=== PATIENT | male | born 1950 | race Caucasian/White ===

== ENCOUNTER → 2016-03-05 | Outpatient (CLI) | payer OTHER ==
[~2016-03-05] MED LIST: ACT/15 PO; ALBUAER9 INH; ALLO100T PO; AMOX875T PO; ASPI81TA28 PO; ATOR-24 PO; BMX1 PO; CHOL100010 PO; CHOL100027 PO; FENO48TA9 PO; FURO20TA PO; GLIM4TAB PO; HYDR100T12 PO; LISI40TA PO; METH10TA6 PO; METO-551 PO; METO-596 PO; TPRSR50 PO; ULT50X PO; UMEC1AER INH; VTMD PO
[2016-03-05 16:44] LABS: HEMATOCRIT 28.7 % (42-52); MEAN CELL VOLUME 80.2 fL (80-100); MEAN CORPUSCULAR HEMOGLOBIN 26.8 pg (25-34); MEAN CORPUSCULAR HGB CONC 33.4 g/dl (32-36); MEAN PLATELET VOLUME 10.3 fL (7.4-10.4); PLATELET COUNT 306 K/uL (130-400); RED BLOOD COUNT 3.58 M/uL (4.7-6.1); WHITE BLOOD COUNT 10.47 K/uL (4.8-10.8)
[2016-03-05 16:49] LABS: URINE APPEARANCE CLEAR (CLEAR); URINE BILIRUBIN NEG (NEG); URINE COLOR YELLOW; URINE NITRITE NEG (NEG); URINE PH 5.5 (4.5-7.5); URINE SPECIFIC GRAVITY 1.014 (1.000-1.030); UROBILINOGEN NEG (NEG)
[2016-03-05 16:57] LABS: BLOOD UREA NITROGEN 42 mg/dl (7-18); BUN/CREATININE RATIO 21.8 (10-20); CALCIUM 8.7 mg/dl (8.5-10.1); CARBON DIOXIDE 28 mmol/L (21-32); CHLORIDE 107 mmol/L (98-107); GLUCOSE 122 mg/dl (70-99); PHOSPHORUS 2.8 mg/dl (2.5-4.9); POTASSIUM 4.5 mmol/L (3.5-5.1); SODIUM 140 mmol/L (136-145)
[2016-03-05 16:58] LABS: MANUAL MICROSCOPIC REQUIRED? NO; REVIEW REQ? NO
[2016-03-05 17:26] LABS: URINE PROTIEN/CREAT RATIO 2.1 (0-0.2); URINE TOTAL PROTEIN 246.5 mg/dl (0-11.9)
== END | disposition home or self-care (01) ==
LOC: C.LAB1850 15:06
PROVIDERS: ATTEND Internal Medicine Nephrology
DX: I10 Essential (primary) hypertension (principal); R80.9 Proteinuria, unspecified; E55.9 Vitamin D deficiency, unspecified; N18.3 Chronic kidney disease, stage 3 (moderate)

== ENCOUNTER → 2016-03-05 | Outpatient (CLI) | payer OTHER ==
--- NOTE | 2016-03-05 14:22 | DIAGNOSTIC IMAGING REPORT ---
TWO VIEW CHEST CLINICAL HISTORY: Cough. FINDINGS: PA and lateral chest radiographs are compared to study dated 02/15/2014. The heart is enlarged and there is atherosclerotic calcification of the thoracic aorta. The pulmonary vasculature is noncongested. An accessory azygous fissure is again noted. There are small pleural effusions, right larger than left with bibasilar atelectasis. The lungs are otherwise clear. There is no pneumothorax. The skeletal structures are osteopenic. The bony thorax appears intact. IMPRESSION: 1. Cardiomegaly without radiographic evidence of congestive failure. 2. Small pleural effusions with bibasilar atelectasis. Electronically signed by: Dheeraj Monte M.D. 03/05/2016 2:21 PM Dictated Date/Time: 03/05/2016 2:20 PM
== END | disposition home or self-care (01) ==
LOC: C.RAD1850 14:07
PROVIDERS: ATTEND Internal Medicine
DX: R05 Cough (principal); J98.11 Atelectasis; I51.7 Cardiomegaly

== ENCOUNTER 2016-03-07 17:06 | Inpatient (IN) | payer OTHER ==
[~2016-03-07] VITALS: Ht 167.6 cm; Wt 89.0 kg
[~2016-03-07 17:06] MED LIST changes: -ALLO100T PO; -AMOX875T PO; -BMX1 PO; -FENO48TA9 PO; -HYDR100T12 PO; -TPRSR50 PO; -ULT50X PO; -UMEC1AER INH; -VTMD PO
[2016-03-07 17:53] LABS: BASO % 0.1 %; BASO ABS # 0.01 K/uL (0-0.2); COMPLETE YES; EOS % 1.6 %; HEMATOCRIT 30.9 % (42-52); IG% 0.3 %; LYMPH % 9.1 %; LYMPH ABS # 1.29 K/uL (1.2-3.4); MEAN CELL VOLUME 79.4 fL (80-100); MEAN CORPUSCULAR HEMOGLOBIN 26.5 pg (25-34); MEAN CORPUSCULAR HGB CONC 33.3 g/dl (32-36); MEAN PLATELET VOLUME 9.6 fL (7.4-10.4); MONO % 11.4 %; NEUT % 77.5 %; PLATELET COUNT 337 K/uL (130-400); RED BLOOD COUNT 3.89 M/uL (4.7-6.1); WHITE BLOOD COUNT 14.17 K/uL (4.8-10.8)
[2016-03-07 18:10] LABS: BLOOD UREA NITROGEN 42 mg/dl (7-18); CARBON DIOXIDE 25 mmol/L (21-32); CHLORIDE 104 mmol/L (98-107); GLUCOSE 56 mg/dl (70-99); POTASSIUM 4.1 mmol/L (3.5-5.1); SODIUM 140 mmol/L (136-145)
[2016-03-07] MEDS ORDERED: ALLO100T PO (18:11)
[2016-03-07] MEDS ORDERED: FENO48TA9 PO (18:12)
[2016-03-07] MEDS ORDERED: HYDR100T12 PO (18:13)
[2016-03-07] MEDS ORDERED: UMEC1AER INH (18:16)
[2016-03-07] MEDS ORDERED: AMOX875T PO (18:18)
--- NOTE | 2016-03-07 18:30 | DIAGNOSTIC IMAGING REPORT ---
ULTRASOUND VENOUS DOPPLER LWR EXT BILA CLINICAL HISTORY: Lower extremity swelling COMPARISON STUDY: 05/27/2009 FINDINGS: Real-time and color flow Doppler imaging were performed. Flow was seen within the femoral, popliteal and calf veins with no intraluminal thrombus demonstrated. The saphenous vein is patent. There is prominent pulsatility within the venous waveforms, suggesting elevated right heart pressures. IMPRESSION: No evidence of lower extremity DVT. Electronically signed by: Sumeet Cid M.D. 03/07/2016 6:29 PM Dictated Date/Time: 03/07/2016 6:28 PM
--- NOTE | 2016-03-07 18:33 | EMERGENCY ROOM VISIT NOTE ---
History Report prepared by Jo: Martha Thornton Under the Supervision of: Dr. Neto Olivia D.O. First contact with patient: 17:14 Chief Complaint: SHORTNESS OF BREATH Stated Complaint: GROIN PRESSURE,SWOLLEN LEGS,FLUID IN LUNGS Nursing Triage Summary: triage note: pt reports swelling to legs and shortness of breath since wednesday pt reports he was seen by his pcp office last week. pt reports "he has fluid in his lungs." History of Present Illness The patient is a 65 year old male who presents to the Emergency Room with complaints of worsening lower extremity edema that started yesterday. The patient has a history of lower extremity edema and is on Lasix. His states that his edema is typically not this bad, which is why they came into the ED. The patient states that it is difficult to ambulate secondary to the edema. The patient states the he elevated his legs last night, which decreased the edema, but once he got up the edema came back again. He is also experiencing pain in his lower extremities. Additionally, he states that he experiences "shakes," but is unsure of why. He denies chest pain, abdominal pain , hematochezia and melena, but he states that his most recent stool was a little darker than normal. The patient is also experiencing a cough, but he states that it is improving with the antibiotics that his PCP prescribed him last week. He states that he started the antibiotics 2 days ago. The patient's states that "he has fluid in his lungs." The patient is also experiencing diarrhea. He seems to get diarrhea after eating. The patient adds that he only has 50% of his kidney function. He had blood work and a urine sample done recently, but he has not received the results of the tests yet. The patient was also experiencing pressure above his groin, but that was relieved with urination. The patient denies any previous colonoscopies. Source of History: patient, spouse/significant other () Onset: yesterday Position: leg (bilateral) Quality: other (lower extremity edema) Timing: worsening Modifying Factors (Relieving): elevation Associated Symptoms: + SOB, + cough, + diarrhea, No abdominal pain, No chest pain, No hematochezia, No melena Note: lower extremity pain, "shakes" Review of Systems See HPI for pertinent positives & negatives. A total of 10 systems reviewed and were otherwise negative. Past Medical & Surgical Medical Problems: (1) Diabetes mellitus (2) Essential hypertension (3) Gouty Arthropathy, Unspecified (4) Renal & Ureteral Dis Nos (5) Tobacco dependence syndrome Family History Diabetes mellitus Social History Smoking Status: Current Every Day Smoker Drug Use: none Marital Status: Housing Status: lives with family Current/Historical Medications Scheduled Allopurinol (Zyloprim), 100 MG PO DAILY Amoxicillin & Pot Clavulanate (Augmentin 875-125 mg), 1 TAB PO BID Aspirin (Aspirin Ec), 81 MG PO DAILY Fenofibrate (Tricor), 48 MG PO DAILY Furosemide (Lasix), 20 MG PO DAILY Glimepiride (Amaryl), 4 MG PO BID Hydralazine Hcl (Apresoline), 100 MG PO TID Lisinopril (Zestril), 40 MG PO DAILY Metoprolol Tartrate (Lopressor), 50 MG PO QPM Metoprolol Tartrate (Lopressor), 100 MG PO QAM Pioglitazone Hcl (Actos), 30 MG PO DAILY Umeclidinium-Vilanterol (Anoro Ellipta 62.5-25 Mcg/INH), 1 SPRAY INH DAILY Allergies Coded Allergies: No Known Allergies (Unverified , NONE, 09/18/14) Physical Exam Vital Signs Date Time Temp Pulse Resp B/P Pulse Ox O2 Delivery O2 Flow Rate FiO2 03/07/16 17:12 36.4 80 20 211/88 94 Room Air 03/07/16 17:11 94 Room Air Physical Exam CONSTITUTIONAL/VITAL SIGNS: Reviewed / noted above. GENERAL: Non-toxic in appearance. INTEGUMENTARY: Warm, dry, and [place]. HEAD: Normocephalic. EYES: without scleral icterus or trauma. ENT/OROPHARYNX: clear and moist. LYMPHADENOPATHY/NECK: Is supple without lymphadenopathy or meningismus. RESPIRATORY: Lungs clear and equal. CARDIOVASCULAR: Regular rate and rhythm. GI/ABDOMEN: Soft and nontender. No organomegaly or pulsatile mass. No rebound or guarding. Normal bowel sounds. EXTREMITIES: Warm and well perfused. Bilateral lower extremity edema with right slightly greater than left. BACK: No CVA tenderness. NEUROLOGICAL: Intact without focal deficits. PSYCHIATRIC: normal affect. MUSCULOSKELETAL: Normally developed with good muscle tone. Medical Decision & Procedures ER Provider Diagnostic Interpretation: US results as stated below per my review and radiologist interpretation: ULTRASOUND VENOUS DOPPLER LWR EXT BILA IMPRESSION: No evidence of lower extremity DVT. Electronically signed by: Sumeet Cid M.D. 03/07/2016 6:29 PM Dictated Date/Time: 03/07/2016 6:28 PM Laboratory Results 03/07/16 17:30 Red Blood Count 3.89, Mean Corpuscular Volume 79.4, Mean Corpuscular Hemoglobin 26.5, Mean Corpuscular Hemoglobin Concent 33.3, Mean Platelet Volume 9.6, Neutrophils (%) (Auto) 77.5, Lymphocytes (%) (Auto) 9.1, Monocytes (%) (Auto) 11.4, Eosinophils (%) (Auto) 1.6, Basophils (%) (Auto) 0.1, Neutrophils # (Auto ) 10.99, Lymphocytes # (Auto) 1.29, Monocytes # (Auto) 1.61, Eosinophils # (Auto ) 0.23, Basophils # (Auto) 0.01 03/07/16 17:30 Test 03/07/16 17:30 White Blood Count 14.17 K/uL (4.8-10.8) Red Blood Count 3.89 M/uL (4.7-6.1) Hemoglobin 10.3 g/dL (14.0-18.0) Hematocrit 30.9 % (42-52) Mean Corpuscular Volume 79.4 fL (80-100) Mean Corpuscular Hemoglobin 26.5 pg (25-34) Mean Corpuscular Hemoglobin Concent 33.3 g/dl (32-36) Platelet Count 337 K/uL (130-400) Mean Platelet Volume 9.6 fL (7.4-10.4) Neutrophils (%) (Auto) 77.5 % Lymphocytes (%) (Auto) 9.1 % Monocytes (%) (Auto) 11.4 % Eosinophils (%) (Auto) 1.6 % Basophils (%) (Auto) 0.1 % Neutrophils # (Auto) 10.99 K/uL (1.4-6.5) Lymphocytes # (Auto) 1.29 K/uL (1.2-3.4) Monocytes # (Auto) 1.61 K/uL (0.11-0.59) Eosinophils # (Auto) 0.23 K/uL (0-0.5) Basophils # (Auto) 0.01 K/uL (0-0.2) RDW Standard Deviation 44.6 fL (36.4-46.3) RDW Coefficient of Variation 15.4 % (11.5-14.5) Immature Granulocyte % (Auto) 0.3 % Immature Granulocyte # (Auto) 0.04 K/uL (0.00-0.02) Anion Gap 11.0 mmol/L (3-11) Est Creatinine Clear Calc Drug Dose 35.2 ml/min Estimated GFR () 34.9 Estimated GFR (Non- 30.1 BUN/Creatinine Ratio 19.0 (10-20) Calcium Level 9.0 mg/dl (8.5-10.1) Troponin I 0.117 ng/ml (0-0.045) Laboratory results as stated above per my review. ECG Indication: SOB/dyspnea Rate (beats per minute): 82 Findings: no acute ischemic change, no ectopy ED Course 1715: Previous medical records were reviewed. The patient was evaluated in room A11. A complete history and physical examination was performed. 1830: On reevaluation, the patient is resting comfortably. I discussed the results and findings with him. He verbalized agreement of the treatment plan. The patient will be evaluated for further management and care. 1837: Discussed the patient's case with Dr. Sameera TORRES. The patient will be evaluated for further treatment and disposition. Medical Decision Differential diagnosis: Etiologies such as DVT, musculoskeletal, infection, joint effusion, trauma, lymphedema, idiopathic, CHF, hypoalbuminemia, anemia, as well as others were entertained. This is a 65-year-old male who presents to the ED with a chief complaint of lower extremity edema. The patient states that he has had this chronically but it seemed to gotten worse since yesterday. The patient denies any other specific complaints. Chief complaint was stated to be short of breath but the patient does not mention short of breath as part of his complaint. It is primarily weakness in the lower extremity is because of the increased weight and his edema. Denied having chest pains. Denies any abdominal pains. His physical exam reveals age-appropriate male in no acute distress. Lungs are clear. Abdomen soft and nontender. The patient has bilateral pitting edema right slightly worse than the left. The patient had blood work done 2 days ago by his renal specialist. His hemoglobin at that time was 9.6. Today's hemoglobin is 10.3. The patient denies any back or bloody stools. The patient' s BUN and creatinine today are 42 and 2.2. It was 1.92 days ago. This is about baseline for the patient. Also the albumin level was 2.82 days ago. Chest x-ray 2 days ago revealed some cardiomegaly without congestive changes. The patient was told the results of the tests. Lower extremity duplex did not show DVT. The patient's troponin is slightly elevated. Because the symptoms and the increased troponin, I spoke with the hospitalist to evaluate the patient. Consults Time Called: 1831 Consulting Physician: Dr. Sameera TORRES Returned Call: 1836 Discussed the patient's case with Dr. Sameera TORRES. The patient will be evaluated for further treatment and disposition. Impression Primary Impression: Edema of both legs Additional Impression: Elevated troponin Scribe Attestation The scribe's documentation has been prepared under my direction and personally reviewed by me in its entirety. I confirm that the note above accurately reflects all work, treatment, procedures, and medical decision making performed by me. Departure Information Dispostion Being Evaluated By Hospitalist Referrals ,Shawn Tobias M.D. (PCP) Patient Instructions My [facility] Problem Qualifiers
[2016-03-07] MEDS ORDERED: METH10TA6 PO (19:07)
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
[2016-03-07] MEDS ORDERED: BUMETANIDE SOLN 1 MG/4 ML VIAL IV ONE (19:30)
[2016-03-07] MEDS ORDERED: NITROGLYCERIN OINT 2% 1GM PACKET EXT SCH ×2 (19:30→20:00)
[2016-03-07 19:33] LABS: THYROID STIMULATING HORMONE < 0.005 uIu/ml (0.300-4.500)
[2016-03-07] MEDS ORDERED: MAGNESIUM HYDROXIDE SUSP 30 ML UDC PO PRN (19:45)
[2016-03-07] MEDS ORDERED: ONDANSETRON INJ 2 MG/ML 2 ML VIAL IV PRN (19:45)
[2016-03-07] MEDS ORDERED: ALUMINUM/MAGNESIUM/SIMETH (MAALOX MAX) 30 ML UDC PO PRN (19:45)
[2016-03-07] MEDS ORDERED: NITROGLYCERIN 0.4 MG SL PER TAB CHARGE SL PRN (19:45)
--- NOTE | 2016-03-07 19:58 | DIAGNOSTIC IMAGING REPORT ---
CHEST 2 VIEWS ROUTINE CLINICAL HISTORY: Congestive failure. COMPARISON STUDY: 03/05/2016 FINDINGS: The cardiac and mediastinal contours remain stable. Azygos fissure is again evident. There is no focal pulmonary consolidation. There are small bilateral pleural effusions. There is no overt failure.[ IMPRESSION: Small bilateral pleural effusions, unchanged from the preceding study. No evidence of acute parenchymal consolidation Electronically signed by: Sumeet Cid M.D. 03/07/2016 7:57 PM Dictated Date/Time: 03/07/2016 7:56 PM
[2016-03-07] MEDS ORDERED: NITROGLYCERIN OINT 2% 1GM PACKET ONE (20:00)
[2016-03-07] MEDS ORDERED: GLUCOSE 40% GEL 15 GM TUBE PO PRN (21:00)
[2016-03-07] MEDS ORDERED: HydrALAZINE HCL 20 MG/ML VIAL IV. PRN (21:00)
[2016-03-07] MEDS ORDERED: METOPROLOL TARTRATE 50 MG TAB PO SCH (21:00)
[2016-03-07] MEDS ORDERED: DEXTROSE 50% 50 ML SYR IV PRN (21:00)
[2016-03-07] MEDS ORDERED: GLUCAGON FOR INJ 1 MG VIAL SQ PRN (21:00)
[2016-03-07] MEDS ORDERED: GLUCOSE 10 TABS/TUBE PO PRN (21:00)
[2016-03-07] MEDS: INSULIN ASPART 100 UNITS/ML 3 ML PEN SC SCH (21:00)
[2016-03-07 21:09] LABS: INR 1.1 (0.9-1.1); PARTIAL THROMBOPLASTIN RATIO 1.1; PROTHROMBIN TIME (PATIENT) 11.4 SECONDS (9.0-12.0)
[2016-03-07] MEDS: ACETAMINOPHEN 325 MG TAB PO PRN (21:32)
[2016-03-07] MEDS: AMOXICILLIN/CLAVULANATE TAB 875 MG TAB PO SCH (21:32)
[2016-03-07] MEDS: NICOTINE 14 MG/24 HR TDSY TD SCH (21:32)
[2016-03-07 21:47] VITALS: BP 177/76; PULSE 92; TEMP 36.8; O2SAT 95; Ht 167.6 cm; Wt 89.0 kg
[2016-03-07] MEDS ORDERED: INFLUENZA VIRUS QUAD VACCINE 0.5 ML SYR IM. ONE (22:30)
[2016-03-07] MEDS ORDERED: PNEUMOCOCCAL POLYSACCHARIDES 25 MCG/0.5 ML VIAL/SYR IM. ONE (22:30)
[2016-03-07] MEDS ORDERED: PNEUMOCOCCAL ADMINISTRATION CHARGE ONE (22:30)
[2016-03-07] MEDS ORDERED: INFLUENZA ADMINISTRATION CHARGE ONE (22:30)
[2016-03-07] MEDS: TEMAZEPAM 7.5 MG CAP PO PRN (23:08)
[2016-03-07] MEDS: HEPARIN SOD 5000 UNIT/0.5 ML CARP SQ SCH (23:08)
[2016-03-07 23:52] VITALS: BP 141/58; PULSE 90; TEMP 37; O2SAT 91
[2016-03-07 23:59] VITALS: O2SAT 91
[2016-03-08] VITALS (11 sets, daily range): BP systolic 157–180; BP diastolic 62–82; PULSE 75–92; TEMP 36.6–37; O2SAT 91–95
[2016-03-08] MEDS ORDERED: NITROGLYCERIN OINT 2% 1GM PACKET EXT SCH (00:30)
[2016-03-08] MEDS: NITROGLYCERIN OINT 2% 1GM PACKET EXT SCH ×2 (03:47→08:22)
[2016-03-08] MEDS: HEPARIN SOD 5000 UNIT/0.5 ML CARP SQ SCH ×3 (05:47→22:00)
[2016-03-08 07:12] LABS: BUN/CREATININE RATIO 18.4 (10-20); CREATININE 2.3 mg/dl (0.60-1.40); POTASSIUM 4.3 mmol/L (3.5-5.1)
[2016-03-08 07:27] LABS: FERRITIN 268.7 ng/ml (8.0-388.0)
[2016-03-08] MEDS ORDERED: PERFLUTREN LIPID MICROSPHERE (DEFINITY) IV ONE (07:53)
[2016-03-08] MEDS: AMOXICILLIN/CLAVULANATE TAB 875 MG TAB PO SCH ×2 (08:12→22:19)
[2016-03-08] MEDS: ALLOPURINOL 100 MG TAB PO SCH (08:12)
[2016-03-08] MEDS: METHIMAZOLE 5 MG TAB PO SCH (08:17)
[2016-03-08] MEDS: IPRATROPIUM BROMIDE/ALBUTEROL respimat INH INH SCH ×5 (08:20→22:13)
[2016-03-08] MEDS: ASPIRIN 81 MG ECTAB PO SCH (08:20)
[2016-03-08] MEDS: FENOFIBRATE 48 MG TAB PO SCH (08:21)
[2016-03-08] MEDS: NICOTINE 14 MG/24 HR TDSY TD SCH (08:21)
[2016-03-08] MEDS: LISINOPRIL 40 MG TAB PO SCH (08:22)
[2016-03-08] MEDS: INSULIN ASPART 100 UNITS/ML 3 ML PEN SC SCH ×4 (08:23→22:22)
[2016-03-08] MEDS: ACETAMINOPHEN 325 MG TAB PO PRN (08:32)
[2016-03-08] MEDS ORDERED: ERGOCALCIFEROL 50,000 INTER.UNIT CAP PO SCH (09:00)
[2016-03-08] MEDS ORDERED: BUMETANIDE IV 1 MG in SYRINGE 0 ML IV SCH (09:00)
[2016-03-08] MEDS ORDERED: METOPROLOL TARTRATE 100 MG TAB PO SCH (09:00)
--- NOTE | 2016-03-08 10:32 | DIAGNOSTIC IMAGING REPORT ---
RIGHT KNEE 3 VIEWS HISTORY: right knee pain Right COMPARISON: None. FINDINGS: No acute fracture or dislocation within the right knee. Chondrocalcinosis. No significant knee effusion. A cluster of calcification seen within the prepatellar soft tissues measuring 3.3 cm. Large tricompartmental marginal osteophytes are identified. Mild cartilage space narrowing at the patellofemoral joint. Severe cartilage space narrowing within the medial compartment of the knee. No radiopaque foreign bodies. IMPRESSION: 1. No acute fracture or dislocation within the right knee. 2. No knee effusion. 3. Chondrocalcinosis. 4. Advanced tricompartmental osteoarthritis. 5. A 3.3 cm prepatellar soft tissue calcification. This is likely chronic. Electronically signed by: Burke Jaimes M.D. 03/08/2016 10:31 AM Dictated Date/Time: 03/08/2016 10:29 AM
--- NOTE | 2016-03-08 11:16 | ECHOCARDIOGRAM REPORT ---
*NOTICE TO RECEIVING REPUBLICAN AGENCY This information is strictly Confidential and protected under [place] law. [place] law prohibits you from making any further disclosure of this information unless further disclosure is expressly permitted by the written consent of the person to whom it pertains or is authorized by law. A general authorization for the release of medical or other information is not sufficient for this purpose. Hospital accepts no responsibility if the information is made available to any other person, INCLUDING THE PATIENT. Interpretation Summary * Conclusions -- * 1. Top-normal left ventricular size with normal systolic function. EF 60-65%. No regional wall motion abnormalities. No significant left ventricular hypertrophy. Type 1 diastolic dysfunction. * 2. Mild valvular aortic stenosis. * 3. There is mild mitral regurgitation. * 4. Technically difficult study, enhanced with IV Definity. * 5. Compared to prior study on 03/25/2012, there now appears to be mild aortic stenosis. Procedure Details * A complete two-dimensional transthoracic echocardiogram was performed (2D, M-mode, Doppler and color flow Doppler). * The study was technically difficult. * The study was technically difficult, but visualization was adequate with the administration of Definity ultrasound contrast. * A contrast injection of Definity was performed to improve assessment of LV function. * Contrast was injected into an intravenous site in the right arm. * One vial of Definity ultrasound contrast was diluted in normal saline to a total volume of 10 ml. A total of '4' ml of solution was administered during imaging. * Lot # [id number] of Definity utilized for procedure. * Expiration date 1DEC17. * The attending nurse who injected the contrast agent was SURYA Mock. Left Ventricle * Top-normal left ventricular size with normal systolic function. EF 60-65%. No regional wall motion abnormalities. No significant left ventricular hypertrophy. Type 1 diastolic dysfunction. Right Ventricle * The right ventricle is normal in size and function. * The right ventricular systolic function is normal as assessed by tricuspid annular plane systolic excursion (TAPSE) (normal >1.5 cm). Atria * The left atrium is borderline dilated. * Right atrial size is normal. * There is no evidence of atrial septal defect, but resolution does not allow assessment for a patent foramen ovale. Mitral Valve * The mitral valve is grossly normal. * There is no mitral valve stenosis. * There is mild mitral regurgitation. Tricuspid Valve * The tricuspid valve is not well visualized, but is grossly normal. * There is no tricuspid stenosis. * There is trace tricuspid regurgitation. Aortic Valve * Mild valvular aortic stenosis. * There is no significant aortic regurgitation. Pulmonic Valve * The pulmonary valve is inadequately visualized, but the Doppler data is adequate for interpretation. * There is no pulmonic valvular stenosis. Great Vessels * The aortic root is normal size. * Ascending aorta of normal dimension Pericardium/Pleural * There is no pericardial effusion. Great Vessels * Mildly dilated IVC. MMode 2D Measurements and Calculations IVSd 1.1 cm IVSs 1.7 cm LVIDd 5.2 cm LVIDs 2.9 cm LVPWd 1.1 cm LVPWs 1.6 cm IVS/LVPW 0.98 FS 43.2 % EDV(Teich) 127.4 ml ESV(Teich) 33.1 ml EF(Teich) 74.0 % EDV(cubed) 137.6 ml ESV(cubed) 25.3 ml EF(cubed) 81.7 % % IVS thick 59.9 % % LVPW thick 50.5 % LV mass(C)d 213.1 grams LV mass(C)dI 105.9 grams/m\S\2 LV mass(C)s 186.3 grams LV mass(C)sI 92.6 grams/m\S\2 SV(Teich) 94.3 ml SI(Teich) 46.8 ml/m\S\2 SV(cubed) 112.4 ml SI(cubed) 55.8 ml/m\S\2 Ao root diam 3.3 cm Ao root area 8.4 cm\S\2 LA dimension 3.8 cm asc Aorta Diam 3.0 cm LA/Ao 1.2 LVOT diam 2.0 cm LVOT area 3.2 cm\S\2 LVAd ap4 37.8 cm\S\2 LVLd ap4 8.7 cm EDV(MOD-sp4) 133.0 ml LVAs ap4 20.5 cm\S\2 LVLs ap4 6.7 cm ESV(MOD-sp4) 51.0 ml EF(MOD-sp4) 61.7 % LVAd ap2 32.7 cm\S\2 LVLd ap2 8.5 cm EDV(MOD-sp2) 101.0 ml LVAs ap2 16.7 cm\S\2 LVLs ap2 6.4 cm ESV(MOD-sp2) 36.0 ml EF(MOD-sp2) 64.4 % SV(MOD-sp4) 82.0 ml SI(MOD-sp4) 40.7 ml/m\S\2 SV(MOD-sp2) 65.0 ml SI(MOD-sp2) 32.3 ml/m\S\2 Doppler Measurements and Calculations MV E max regi 126.5 cm/sec MV A max regi 129.6 cm/sec MV E/A 0.98 MV dec time 0.23 sec Ao V2 max 232.1 cm/sec Ao max PG 21.6 mmHg Ao max PG (full) 15.7 mmHg Ao V2 mean 152.1 cm/sec Ao mean PG 10.4 mmHg Ao mean PG (full) 7.0 mmHg Ao V2 VTI 45.5 cm BOB(I,A) 1.9 cm\S\2 BOB(I,D) 1.9 cm\S\2 BOB(V,A) 1.7 cm\S\2 BOB(V,D) 1.7 cm\S\2 LV V1 max PG 5.8 mmHg LV V1 mean PG 3.4 mmHg LV V1 max 120.9 cm/sec LV V1 mean 86.3 cm/sec LV V1 VTI 26.8 cm SV(Ao) 383.1 ml SI(Ao) 190.3 ml/m\S\2 SV(LVOT) 86.7 ml SI(LVOT) 43.1 ml/m\S\2 PA V2 max 132.8 cm/sec PA max PG 7.1 mmHg RAP systole 8.0 mmHg
--- NOTE | 2016-03-08 11:41 | Progress Note ---
Subjective Date of Service: Mar 08, 2016. Subjective Pt evaluation today including: conversation w/ patient, physical exam, chart review, lab review, review of studies, review of inpatient medication list Problem List Medical Problems: (1) Edema of both legs Status: Acute (2) Elevated troponin Status: Acute Review of Systems Constitutional: No chills, No fever Respiratory: No cough, No dyspnea on exertion, No shortness of breath, No sputum, No wheezing Cardiac: No PND, No chest pain, No claudication, No orthopnea Abdomen: No diarrhea, No nausea, No pain, No vomiting Musculoskeletal: + joint pain, No muscle pain Male : No dysuria, No urinary frequency Neurologic: No memory loss, No paralysis Objective Vital Signs Date Time Temp Pulse Resp B/P Pulse Ox O2 Delivery O2 Flow Rate FiO2 03/08/16 08:00 91 Room Air 03/08/16 04:00 94 Room Air 03/08/16 03:47 36.9 83 17 158/70 94 Room Air 03/07/16 23:59 91 Room Air 03/07/16 23:52 37.0 90 22 141/58 91 Room Air 03/07/16 21:47 36.8 92 20 177/76 95 Room Air 03/07/16 20:14 81 20 208/86 95 Room Air 03/07/16 19:00 81 20 187/87 96 Room Air 03/07/16 17:12 36.4 80 20 211/88 94 Room Air 03/07/16 17:11 94 Room Air Physical Exam General Appearance: WD/WN, no apparent distress Neck: supple, no adenopathy Respiratory/Chest: lungs clear, normal breath sounds Cardiovascular: regular rate, rhythm, no gallop Abdomen: non tender, soft Neurologic/Psychiatric: alert, oriented x 3 Laboratory Results Last 24 Hours Test 03/07/16 17:30 03/07/16 19:41 03/07/16 20:38 03/08/16 00:17 White Blood Count 14.17 K/uL Red Blood Count 3.89 M/uL Hemoglobin 10.3 g/dL Hematocrit 30.9 % Mean Corpuscular Volume 79.4 fL Mean Corpuscular Hemoglobin 26.5 pg Mean Corpuscular Hemoglobin Concent 33.3 g/dl Platelet Count 337 K/uL Mean Platelet Volume 9.6 fL Neutrophils (%) (Auto) 77.5 % Lymphocytes (%) (Auto) 9.1 % Monocytes (%) (Auto) 11.4 % Eosinophils (%) (Auto) 1.6 % Basophils (%) (Auto) 0.1 % Neutrophils # (Auto) 10.99 K/uL Lymphocytes # (Auto) 1.29 K/uL Monocytes # (Auto) 1.61 K/uL Eosinophils # (Auto) 0.23 K/uL Basophils # (Auto) 0.01 K/uL RDW Standard Deviation 44.6 fL RDW Coefficient of Variation 15.4 % Immature Granulocyte % (Auto) 0.3 % Immature Granulocyte # (Auto) 0.04 K/uL Prothrombin Time 11.4 SECONDS Prothromb Time International Ratio 1.1 Activated Partial Thromboplast Time 29.4 SECONDS Partial Thromboplastin Ratio 1.1 Sodium Level 140 mmol/L Potassium Level 4.1 mmol/L Chloride Level 104 mmol/L Carbon Dioxide Level 25 mmol/L Anion Gap 11.0 mmol/L Blood Urea Nitrogen 42 mg/dl Creatinine 2.20 mg/dl Est Creatinine Clear Calc Drug Dose 35.2 ml/min Estimated GFR () 34.9 Estimated GFR (Non- 30.1 BUN/Creatinine Ratio 19.0 Random Glucose 56 mg/dl Calcium Level 9.0 mg/dl Troponin I 0.117 ng/ml 0.099 ng/ml Thyroid Stimulating Hormone (TSH) < 0.005 uIu/ml Free Thyroxine 2.38 ng/dl Bedside Glucose 54 mg/dl 153 mg/dl Test 03/08/16 06:10 03/08/16 06:40 03/08/16 10:47 Sodium Level 143 mmol/L Potassium Level 4.3 mmol/L Chloride Level 106 mmol/L Carbon Dioxide Level 26 mmol/L Anion Gap 11.0 mmol/L Blood Urea Nitrogen 42 mg/dl Creatinine 2.30 mg/dl Est Creatinine Clear Calc Drug Dose 33.3 ml/min Estimated GFR () 33.1 Estimated GFR (Non- 28.5 BUN/Creatinine Ratio 18.4 Random Glucose 117 mg/dl Calcium Level 9.0 mg/dl Magnesium Level 2.0 mg/dl Iron Level 24 mcg/dl Total Iron Binding Capacity 238 mcg/dl Transferrin 188 mg/dl Transferrin % Saturation 9 % Ferritin 268.7 ng/ml Total Bilirubin 0.3 mg/dl Direct Bilirubin 0.1 mg/dl Aspartate Amino Transf (AST/SGOT) 15 U/L Alanine Aminotransferase (ALT/SGPT) 14 U/L Alkaline Phosphatase 93 U/L Troponin I 0.073 ng/ml Total Protein 6.4 gm/dl Albumin 2.6 gm/dl Bedside Glucose 122 mg/dl 206 mg/dl Assessment and Plan 65yo male with history of HTN, T2DM, CKD stage 3, hyperthyroidism, and chronic tobacco dependence presenting with LE edema and other symptoms/signs suggestive of acute CHF. Lower extremity edema could also be due to significant proteinuria/ hypoalbuminemia. 1. suspected acute CHF - last echo was in 2012 showing preserved EF and normal valvular function. At the very least, in light of HTN, has diastolic dysfunction. Plan - * bumex IV x 1 given in ER * then bumex 1mg PO BID * echo to assess EF, diastolic function, etc * needs improved BP control * would change short-acting metoprolol to metoprolol xl or coreg * continue ELIZABETH * telemetry * daily weights, salt restriction, etc * nitropaste now for afterload reduction/improved BP control 2. hypertensive urgency - resume all outpatient meds; nitropaste as above; diurese. Hopefully BP will improve with these measures. Adjust meds as needed. Hydralazine IV prn. Certainly his uncontrolled BP could be contributing to shortness of breath and other cardiopulmonary symptoms. 3. CKD stage 3 - creatinine of 2.2 today is at baseline. Daily BMP. Has significant proteinuria on most recent u/a - continue the ELIZABETH. 4. hyperthyroidism - TSH is suppressed, FT4 is high. I reviewed his outpatient pharmacy records and it appears he is compliant with his 30mg of methimazole. Appears he may need higher dose and close f/u with Dr. Landry. This could be worsening #1 above. 5. 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 Stop actos in light of CHF. Patient was asymptomatic from the low glucose (hypoglycemia unaware). Novolog sliding scale (correction 40, carb ratio of 13 to start). May need less if sulfonylurea hangs around another 24 hours due to CKD. 6. ?bronchitis - is day #5 into an augmentin course for what sounds like bronchitis. I wonder if many of his symptoms this week, however, were from #1. Would finish the course. Combivent QID. 7. DVT proph - heparin TID. 8. tobacco dependence - grief counsellor to quit. Nicoderm patch 14mg/day. 9. insomnia - pt requests sleep aid - temazepam 7.5mg HS prn. 10. elevated troponin - suspect this is due to #1 and #2 +/- his CKD. Doubt true ACS. 11. mild microcytic anemia - check iron studies in AM. If normal anemia is likely due to CKD. 12. vitamin D deficiency - just had vitamin D level checked this week as outpatient - was <15. Will start ergocalciferol 62805 units twice weekly. 13. code status - full code, level 1.
[2016-03-08] MEDS: TRAMADOL HCL 50 MG TAB PO PRN ×3 (12:11→22:26)
[2016-03-08] MEDS ORDERED: NURSING VERBAL MED ORDER ONE (16:45)
[2016-03-08] MEDS ORDERED: BUMETANIDE 1 MG TAB PO SCH (21:00)
[2016-03-08] MEDS: METOPROLOL SUCC 50MG EXT REL TAB PO SCH (22:20)
[2016-03-08] MEDS: TEMAZEPAM 7.5 MG CAP PO PRN (22:26)
[2016-03-09] MEDS: HEPARIN SOD 5000 UNIT/0.5 ML CARP SQ SCH (06:00)
[2016-03-09 08:04] VITALS: BP 180/70; PULSE 68; TEMP 36.5; O2SAT 95
[2016-03-09] MEDS: INSULIN ASPART 100 UNITS/ML 3 ML PEN SC SCH ×2 (08:11→13:44)
[2016-03-09] MEDS: IPRATROPIUM BROMIDE/ALBUTEROL respimat INH INH SCH ×2 (08:12→13:00)
[2016-03-09] MEDS: AMOXICILLIN/CLAVULANATE TAB 875 MG TAB PO SCH (08:14)
[2016-03-09] MEDS: ASPIRIN 81 MG ECTAB PO SCH (08:15)
[2016-03-09] MEDS: METHIMAZOLE 5 MG TAB PO SCH (08:16)
[2016-03-09] MEDS: METOPROLOL SUCC 50MG EXT REL TAB PO SCH (08:17)
[2016-03-09] MEDS: FENOFIBRATE 48 MG TAB PO SCH (08:17)
[2016-03-09] MEDS: ALLOPURINOL 100 MG TAB PO SCH (08:18)
[2016-03-09] MEDS: LISINOPRIL 40 MG TAB PO SCH (08:18)
[2016-03-09] MEDS: NICOTINE 14 MG/24 HR TDSY TD SCH (08:18)
[2016-03-09] MEDS ORDERED: BUMETANIDE 1 MG TAB PO SCH (09:00)
[2016-03-09 10:06] LABS: BUN/CREATININE RATIO 19.5 (10-20); CALCIUM 9.1 mg/dl (8.5-10.1); CREATININE 2.3 mg/dl (0.60-1.40); POTASSIUM 4.2 mmol/L (3.5-5.1)
[2016-03-09] MEDS ORDERED: BMX1 PO (11:53)
[2016-03-09] MEDS ORDERED: ULT50X PO (11:53)
[2016-03-09] MEDS ORDERED: TPRSR50 PO (11:53)
[2016-03-09] MEDS ORDERED: VTMD PO (11:53)
--- NOTE | 2016-03-09 11:54 | Discharge Instructions ---
Discharge Instructions Admission Reason for Admission: Acute Chf, Elevated Troponin Discharge Discharge Diagnosis / Problem: edema for unknown reason Discharge Goals Goal(s): Decrease discomfort, Improve function, Increase independence, Improve disease control, Improve nutritional status, Learn about illness, Diagnostic testing, Therapeutic intervention, Prevent Disease Progression, Specific goals Activity Recommendations Activity Limitations: resume your previous activity Lifting Limitations: none Exercise/Sports Limitations: none May Resume Sexual Activity: when tolerated Shower/Bathe: no limitations Driving or Machine Use: no limitations . Instructions / Follow-Up Instructions / Follow-Up you have bilateral edema possible from fluid over load from unknown reason, your echo cardiogram show your heart function is ok, the Lower extremity edema could also be due to significant proteinuria/ hypoalbuminemia from kidney disease I am giving you bumex 1mg oral a day, you need to have labs test on 03/12/2016 , and follow up the results with Dr. Denton and Dr. Healy you have hypertensive urgency, I increase Metoprolol to 100mg oral twice a day you have CKD stage 3 -need to follow up with Dr. Healy as instructed you have hyperthyroidism you need to have close follow up with Dr. Landry. your have vitamin D deficiency I have start ergocalciferol 65013 units twice weekly. - you need to follow up with your primary care physician in 1 week, - take medication as instructed, never overdose or any misuse, or take with alcohol, because misuse of medicine may cause organ damage or , call your primary care physician if have questions of medicaitons. - call your primary care physician OR go to local emergency room if has any fever/chill, chest pain, shortness of breathing, nausea/vomiting/abdominal pain , facial droop/slurry speech/local weakness, or if has any questions. - fall precaution - diet as instructed - you need to follow up with your subspecialists - you should understand that it is important to follow up the above instruction , and "not following the above instruction" may cause delayed or missed care of your medical conditions which may cause permanent organ damage and even . Current Hospital Diet Patient's current hospital diet: Diabetes Type 2 Diet, Low Sodium Diet (2gm Na) Discharge Diet Recommended Diet: Diabetes Type 2 Diet Pending Studies Studies pending at discharge: no Medical Emergencies . Who to Call and When: Medical Emergencies: If at any time you feel your situation is an emergency, please call 911 immediately. . Non-Emergent Contact Non-Emergency issues call your: Primary Care Provider, Coper Hand . . "Provider Documentation" section prepared by Mahad Luu. VTE Core Measure Inpt VTE Proph given/why not?: Unfractionated heparin SQ
[2016-03-09 11:56] VITALS: BP 180/70; PULSE 68; TEMP 36.5; O2SAT 95
--- NOTE | 2016-03-09 12:10 | Discharge Summary ---
Discharge Summary Admission Date: Mar 07, 2016 at 19:32 Discharge Date: Mar 09, 2016 Discharge Disposition: Home Principal Diagnosis: bilateral lower extremities edema Problems/Secondary Diagnoses: possible from fluid over load from unknown reason, proteinuria/hypoalbuminemia from kidney disease ckd stage 3 Procedures: no Consultations: no Medication Reconciliation New Medications: Bumetanide (Bumetanide) 1 Mg Tab 1 MG PO DAILY for 14 Days, #14 TAB Ergocalciferol (Vitamin D) 50,000 Interunit Cap 52330 INTERUNIT PO SuWe@0900 for 30 Days, CAP Metoprolol Succinate (Metoprolol Succinate ER) 50 Mg Tabcr 100 MG PO BID for 30 Days hold when sbp <110, or DBP <65, or HR <65 Tramadol HCl (Tramadol HCl) 50 Mg Tab 50 MG PO Q4H PRN for Pain for 7 Days, #15 TAB Continued Medications: Allopurinol (Zyloprim) 100 Mg Tab 100 MG PO DAILY, TAB Amoxicillin & Pot Clavulanate (Augmentin 875-125 mg) 1 Tab Tab 1 TAB PO BID for 7 Days, #14 TAB BEGIN 03/05/16 X 7 DAYS. Aspirin (Aspirin Ec) 81 Mg Tab 81 MG PO DAILY Fenofibrate (Tricor) 48 Mg Tab 48 MG PO DAILY, TAB Glimepiride (Amaryl) 4 Mg Tab 4 MG PO BID, TAB Hydralazine Hcl (Apresoline) 100 Mg Tab 100 MG PO TID, TAB Lisinopril (Zestril) 40 Mg Tab 40 MG PO DAILY, TAB Methimazole (Methimazole) 10 Mg Tab 30 MG PO DAILY for 30 Days, 11 Refills Umeclidinium-Vilanterol (Anoro Ellipta 62.5-25 Mcg/INH) 1 Aer Aer 1 PUFF INH DAILY Discontinued Medications: Furosemide (Lasix) 20 Mg Tab 20 MG PO DAILY, TAB Metoprolol Tartrate (Lopressor) 50 Mg Tab 50 MG PO QPM, TAB Metoprolol Tartrate (Lopressor) 100 Mg Tab 100 MG PO QAM, TAB Pioglitazone Hcl (Actos) 15 Mg Tab 30 MG PO DAILY, TAB Discharge Exam doing ok, OOB and walk, no sob, Review of Systems: Constitutional: No chills, No fatigue, No fever, No problem reported, No sweats, No weakness, No weight loss Eyes: No diplopia, No discharge, No eye pain, No problem reported, No redness, No worsening of vision ENT: No dental problems, No hearing loss, No nasal symptoms, No problem reported, No sore throat, No tinnitus, No trouble swallowing, No unusual epistaxis Respiratory: No cough, No dyspnea at rest, No dyspnea on exertion, No hemoptysis, No problem reported, No shortness of breath, No sputum, No wheezing Cardiovascular: + edema, No PND, No chest pain, No claudication, No orthopnea, No palpitations, No problem reported Abdomen: No GI bleeding, No constipation, No diarrhea, No nausea, No pain, No problem reported, No vomiting Musculoskeletal: No calf pain, No joint pain, No muscle pain, No problem reported, No swelling Genitourinary - Male: No dysuria, No hematuria, No impotence, No lesions, No penile discharge, No problem reported, No urinary frequency, No urinary hesitancy, No urinary incontinence, No urinary retention, No urinary urgency Neurologic: No balance problems, No memory loss, No numbness/tingling, No paralysis, No problem reported, No vertigo, No weakness Psychiatric: No anhedonism, No anxiety, No depression symptoms, No insomnia , No problem reported, No substance abuse Endocrine: No excessive thirst, No excessive urination, No fatigue, No problem reported Hematologic / Lymphatic: No abnormal bleeding/bruising, No clotting problems , No night sweats, No problem reported, No swollen lymph nodes Integumentary: No bleeding, No color change, No itch, No new/changing skin lesions, No problem reported, No rash Physical Exam: General Appearance: WD/WN, no apparent distress Eyes: normal inspection, PERRL ENT: normal ENT inspection, hearing grossly normal, TMs normal Neck: supple, no adenopathy, thyroid normal Respiratory/Chest: chest non-tender, normal breath sounds, no respiratory distress, no accessory muscle use, + decreased breath sounds Cardiovascular: regular rate, rhythm, no gallop, no JVD, + pertinent finding (2-3+ edema in katarzyna lower exts) Abdomen / GI: normal bowel sounds, non tender, soft Extremities: normal inspection, no calf tenderness, + swelling Neurologic/Psychiatric: transport rn II-XII nml as tested, no motor/sensory deficits , alert, normal mood/affect, normal reflexes, oriented x 3 Skin: normal color, warm/dry Hospital Course 65yo male with history of HTN, T2DM, CKD stage 3, hyperthyroidism, and chronic tobacco dependence presenting with LE edema on 03/07/2016 Initially it was thought has acute CHF however, his echo showed normal LVEF, and no diastolic dysfunction echo report in below: 1. Top-normal left ventricular size with normal systolic function. EF 60-65%. No regional wall motion abnormalities. No significant left ventricular hypertrophy. Type 1 diastolic dysfunction. 2. Mild valvular aortic stenosis. 3. There is mild mitral regurgitation. 4. Technically difficult study, enhanced with IV Definity. 5. Compared to prior study on 03/25/2012, there now appears to be mild aortic stenosis. Procedure Details A complete two-dimensional transthoracic echocardiogram was performed (2D, M- mode, Doppler and color flow Doppler). The study was technically difficult. The study was technically difficult, but visualization was adequate with the administration of Definity ultrasound contrast. A contrast injection of Definity was performed to improve assessment of LV function. I think the Lower extremity edema could also be due to significant proteinuria/ hypoalbuminemia and CKD he got bumex IV x 1 given in ER, then bumex 1mg PO BID, he has 2 total 2 L negative with 2 kg wt lost, hypertensive urgency upon admission, better, resume all outpatient meds; nitropaste as above; diurese. increase Metoprolol to 100mg oral twice a day, has counselling about watching BP, and heart rate CKD stage 3 - creatinine of 2.2 today is at baseline. Daily BMP. Has significant proteinuria on most recent u/a - continue the ELIZABETH. has ordered labs to check in 3 days, and follow up with pcp and renal, he follow up with Dr. Healy, should be very cautious about ACEI and Bumex, Dr. Denton and Dr. Healy, please follow up this hyperthyroidism - TSH is suppressed, FT4 is high. I reviewed his outpatient pharmacy records and it appears he is compliant with his 30mg of methimazole. Appears he may need higher dose and close f/u with Dr. Landry. 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 Stop actos stop for now Patient was asymptomatic from the low glucose (hypoglycemia unaware). Novolog sliding scale (correction 40, carb ratio of 13 to start). May need less if sulfonylurea hangs around another 24 hours due to CKD. bronchitis - is day #6 into an augmentin course for what sounds like bronchitis. tobacco dependence with decreased breathing, - field counsel to quit. Nicoderm patch 14mg/day. insomnia - pt requests sleep aid - temazepam 7.5mg HS prn. elevated troponin - suspect this is due to #1 and #2 +/- his CKD. Doubt true ACS. mild microcytic anemia - check iron studies in AM. If normal anemia is likely due to CKD. vitamin D deficiency - just had vitamin D level checked this week as outpatient - was <15. Will start ergocalciferol 82270 units twice weekly. all of the dc instruction was given to patient with present of RN Instructions / Follow-Up you have bilateral edema possible from fluid over load from unknown reason, your echo cardiogram show your heart function is ok, the Lower extremity edema could also be due to significant proteinuria/ hypoalbuminemia from kidney disease I am giving you bumex 1mg oral a day, you need to have labs test on 03/12/2016 , and follow up the results with Dr. Denton and Dr. Healy you have hypertensive urgency, I increase Metoprolol to 100mg oral twice a day you have CKD stage 3 -need to follow up with Dr. Healy as instructed you have hyperthyroidism you need to have close follow up with Dr. Landry. your have vitamin D deficiency I have start ergocalciferol 87405 units twice weekly. - you need to follow up with your primary care physician in 1 week, - take medication as instructed, never overdose or any misuse, or take with alcohol, because misuse of medicine may cause organ damage or , call your primary care physician if have questions of medicaitons. - call your primary care physician OR go to local emergency room if has any fever/chill, chest pain, shortness of breathing, nausea/vomiting/abdominal pain , facial droop/slurry speech/local weakness, or if has any questions. - fall precaution - diet as instructed - you need to follow up with your subspecialists - you should understand that it is important to follow up the above instruction , and "not following the above instruction" may cause delayed or missed care of your medical conditions which may cause permanent organ damage and even . This includes examination of the patient, discharge planning, medication reconciliation, and communication with other providers. Discharge Instructions Please refer to the electronic Patient Visit Report (Discharge Instructions) for additional information. Additional Copies To Al Dennis M.D.; Shawn Denton M.D.
== END 2016-03-09 13:45 | disposition home or self-care (01) | DRG 844 ==
LOC: ENRESERVDT → CANRESERV → ENRESERVTM → C.EDB 17:08 → C.2T 19:32 → C.MED 03-08 13:43 → C.MS2W 03-09 08:54
PROVIDERS: ADMIT Internal Medicine; ATTEND Hospitalist
DX: E88.09 Other disorders of plasma-protein metabolism, not elsewhere classified (principal); R60.0 Localized edema; R80.9 Proteinuria, unspecified; E11.21 Type 2 diabetes mellitus with diabetic nephropathy; I12.9 Hypertensive chronic kidney disease with stage 1 through stage 4 chronic kidney disease, or unspecified chronic kidney disease; N18.3 Chronic kidney disease, stage 3 (moderate); M10.9 Gout, unspecified; F17.210 Nicotine dependence, cigarettes, uncomplicated; D50.9 Iron deficiency anemia, unspecified; E11.649 Type 2 diabetes mellitus with hypoglycemia without coma; E05.90 Thyrotoxicosis, unspecified without thyrotoxic crisis or storm; G47.00 Insomnia, unspecified; I16.0 Hypertensive urgency; E55.9 Vitamin D deficiency, unspecified; E11.22 Type 2 diabetes mellitus with diabetic chronic kidney disease; J40 Bronchitis, not specified as acute or chronic; Z98.41 Cataract extraction status, right eye; Z98.42 Cataract extraction status, left eye; Z96.1 Presence of intraocular lens; Z98.890 Other specified postprocedural states; Z83.3 Family history of diabetes mellitus; Z82.0 Family history of epilepsy and other diseases of the nervous system; Z82.49 Family history of ischemic heart disease and other diseases of the circulatory system; Z79.82 Long term (current) use of aspirin; Z79.899 Other long term (current) drug therapy; R05 Cough; J98.11 Atelectasis; I51.7 Cardiomegaly

== ENCOUNTER → 2016-03-31 | Outpatient (CLI) | payer OTHER ==
[~2016-03-31] MED LIST changes: -ACT/15 PO; -ALBUAER9 INH; +ALLO100T PO; +AMOX875T PO; -ATOR-24 PO; +BMX1 PO; -CHOL100010 PO; -CHOL100027 PO; +FENO48TA9 PO; -FURO20TA PO; +HYDR100T12 PO; -METO-551 PO; -METO-596 PO; +TPRSR50 PO; +ULT50X PO; +UMEC1AER INH; +VTMD PO
[2016-03-31 12:28] LABS: HEMATOCRIT 35.7 % (42-52); MEAN CELL VOLUME 79.2 fL (80-100); MEAN CORPUSCULAR HEMOGLOBIN 26.2 pg (25-34); MEAN CORPUSCULAR HGB CONC 33.1 g/dl (32-36); MEAN PLATELET VOLUME 10.5 fL (7.4-10.4); PLATELET COUNT 388 K/uL (130-400); RED BLOOD COUNT 4.51 M/uL (4.7-6.1); WHITE BLOOD COUNT 10.83 K/uL (4.8-10.8)
[2016-03-31 12:35] LABS: URINE APPEARANCE CLEAR (CLEAR); URINE BILIRUBIN NEG (NEG); URINE COLOR YELLOW; URINE EPITHELIAL CELL AUTO 0-5 /lpf (0-5); URINE NITRITE NEG (NEG); URINE SPECIFIC GRAVITY 1.007 (1.000-1.030); UROBILINOGEN NEG (NEG)
[2016-03-31 12:36] LABS: MANUAL MICROSCOPIC REQUIRED? NO; REVIEW REQ? NO
[2016-03-31 12:52] LABS: URINE PROTIEN/CREAT RATIO 1.6 (0-0.2); URINE TOTAL PROTEIN 106.1 mg/dl (0-11.9)
[2016-03-31 12:56] LABS: BLOOD UREA NITROGEN 43 mg/dl (7-18); BUN/CREATININE RATIO 22.4 (10-20); CALCIUM 9.3 mg/dl (8.5-10.1); CARBON DIOXIDE 28 mmol/L (21-32); CHLORIDE 106 mmol/L (98-107); GLUCOSE 132 mg/dl (70-99); PHOSPHORUS 3.7 mg/dl (2.5-4.9); POTASSIUM 4.2 mmol/L (3.5-5.1); SODIUM 141 mmol/L (136-145)
[2016-03-31 12:59] LABS: FERRITIN 276.2 ng/ml (8.0-388.0); TOTAL IRON BINDING CAPACITY 251 mcg/dl (250-450)
== END | disposition home or self-care (01) ==
LOC: C.LAB1850 10:51
PROVIDERS: ATTEND Internal Medicine Nephrology
DX: I12.9 Hypertensive chronic kidney disease with stage 1 through stage 4 chronic kidney disease, or unspecified chronic kidney disease (principal); N18.3 Chronic kidney disease, stage 3 (moderate); R80.9 Proteinuria, unspecified; N25.81 Secondary hyperparathyroidism of renal origin; E55.9 Vitamin D deficiency, unspecified

== ENCOUNTER → 2016-06-23 | Outpatient (CLI) | payer OTHER ==
[2016-06-23 16:18] LABS: CHOLESTEROL/HDL RATIO 4.5
[2016-06-24 05:59] LABS: ESTIMATED AVERAGE GLUCOSE 180 mg/dl; HA1C FLAG Normal (Normal)
== END ==
LOC: C.LAB1850 14:39
PROVIDERS: ATTEND Internal Medicine Endocrinology, Diabetes & Metabolism
DX: E11.9 Type 2 diabetes mellitus without complications (principal); E78.5 Hyperlipidemia, unspecified

== ENCOUNTER → 2016-06-26 | Outpatient (CLI) | payer OTHER ==
[2016-06-26 17:36] LABS: THYROID STIMULATING HORMONE < 0.005 uIu/ml (0.300-4.500)
== END | disposition home or self-care (01) ==
LOC: C.LAB1850 15:56
PROVIDERS: ATTEND Internal Medicine Endocrinology, Diabetes & Metabolism
DX: E11.9 Type 2 diabetes mellitus without complications (principal); E05.00 Thyrotoxicosis with diffuse goiter without thyrotoxic crisis or storm

== ENCOUNTER → 2016-07-14 | Outpatient (CLI) | payer OTHER ==
[2016-07-14 15:42] LABS: HEMATOCRIT 37.7 % (42-52); MEAN CELL VOLUME 80.6 fL (80-100); MEAN CORPUSCULAR HEMOGLOBIN 25.9 pg (25-34); MEAN CORPUSCULAR HGB CONC 32.1 g/dl (32-36); MEAN PLATELET VOLUME 9.9 fL (7.4-10.4); PLATELET COUNT 399 K/uL (130-400); RED BLOOD COUNT 4.68 M/uL (4.7-6.1); WHITE BLOOD COUNT 10.61 K/uL (4.8-10.8)
[2016-07-14 15:46] LABS: URINE APPEARANCE CLEAR (CLEAR); URINE BILIRUBIN NEG (NEG); URINE COLOR YELLOW; URINE EPITHELIAL CELL AUTO 0-5 /lpf (0-5); URINE NITRITE NEG (NEG); URINE SPECIFIC GRAVITY 1.012 (1.000-1.030); UROBILINOGEN NEG (NEG)
[2016-07-14 15:54] LABS: MANUAL MICROSCOPIC REQUIRED? NO; REVIEW REQ? NO
[2016-07-14 16:10] LABS: BLOOD UREA NITROGEN 45 mg/dl (7-18); BUN/CREATININE RATIO 18.1 (10-20); CALCIUM 8.8 mg/dl (8.5-10.1); CARBON DIOXIDE 29 mmol/L (21-32); CHLORIDE 106 mmol/L (98-107); GLUCOSE 81 mg/dl (70-99); PHOSPHORUS 3.2 mg/dl (2.5-4.9); POTASSIUM 4.3 mmol/L (3.5-5.1); SODIUM 142 mmol/L (136-145)
[2016-07-14 16:10] LABS: URINE PROTIEN/CREAT RATIO 1.3 (0-0.2); URINE TOTAL PROTEIN 121.9 mg/dl (0-11.9)
== END | disposition home or self-care (01) ==
LOC: C.LAB1850 14:46
PROVIDERS: ATTEND Internal Medicine Nephrology
DX: I12.9 Hypertensive chronic kidney disease with stage 1 through stage 4 chronic kidney disease, or unspecified chronic kidney disease (principal); R80.9 Proteinuria, unspecified; N18.3 Chronic kidney disease, stage 3 (moderate); N25.81 Secondary hyperparathyroidism of renal origin; J45.909 Unspecified asthma, uncomplicated; E55.9 Vitamin D deficiency, unspecified

== ENCOUNTER → 2016-08-03 | Outpatient (CLI) | payer OTHER ==
[2016-08-03 17:23] LABS: BLOOD UREA NITROGEN 51 mg/dl (7-18); CALCIUM 8.6 mg/dl (8.5-10.1); CARBON DIOXIDE 23 mmol/L (21-32); CHLORIDE 109 mmol/L (98-107); GLUCOSE 113 mg/dl (70-99); SODIUM 141 mmol/L (136-145)
[2016-08-03 17:24] LABS: PHOSPHORUS 2.3 mg/dl (2.5-4.9)
== END | disposition home or self-care (01) ==
LOC: C.LAB1850 15:20
PROVIDERS: ATTEND Internal Medicine Nephrology
DX: I12.9 Hypertensive chronic kidney disease with stage 1 through stage 4 chronic kidney disease, or unspecified chronic kidney disease (principal); R80.9 Proteinuria, unspecified; N18.3 Chronic kidney disease, stage 3 (moderate); N25.81 Secondary hyperparathyroidism of renal origin; E55.9 Vitamin D deficiency, unspecified

== ENCOUNTER → 2016-08-06 | Outpatient (CLI) | payer OTHER ==
--- NOTE | 2016-08-06 09:14 | DIAGNOSTIC IMAGING REPORT ---
RENAL ULTRASOUND HISTORY: N18.3 Chronic kidney disease, stage 3 (moderate)[id number] COMPARISON: Abdomen and pelvis CT 06/02/2013. FINDINGS: Right kidney: 11.1 cm. No hydronephrosis. Normal corticomedullary differentiation and cortical thickness. Left kidney: 11.2 cm. No hydronephrosis. Normal corticomedullary differentiation and cortical thickness. Bladder: No bladder wall thickening. The bilateral ureteral jets were identified. IMPRESSION: Normal renal ultrasound. Electronically signed by: Burke Jaimes M.D. 08/06/2016 9:12 AM Dictated Date/Time: 08/06/2016 9:11 AM
--- NOTE | 2016-08-06 09:16 | DIAGNOSTIC IMAGING REPORT ---
DUPLEX RENAL ARTERY ULTRASOUND CLINICAL HISTORY: N18.3 Chronic kidney disease, stage 3 (moderate)[id number] COMPARISON STUDY: Abdomen and pelvis CT 06/02/2013. FINDINGS: Bowel gas obscures the proximal right renal artery and hospital and mid left renal arteries. The peak systolic velocity within the mid right renal artery is 185 cm/s. Resistive indices of the bilateral renal arcuate arteries are less than 0.73. The bilateral renal veins are patent. Peak systolic velocity within the distal left renal artery is 128 cm/s. IMPRESSION: Bowel gas obscures the proximal right renal artery and proximal and mid left renal arteries. Top normal patient systolic velocity within the right renal artery. However, no definite stenosis within the bilateral renal arteries. Electronically signed by: Burke Jaimes M.D. 08/06/2016 9:15 AM Dictated Date/Time: 08/06/2016 9:12 AM
== END | disposition home or self-care (01) ==
LOC: C.ULTRBC 07:47
PROVIDERS: ATTEND Internal Medicine Nephrology
DX: N18.3 Chronic kidney disease, stage 3 (moderate) (principal)

== ENCOUNTER → 2016-08-07 | Outpatient (CLI) | payer OTHER ==
[2016-08-07 10:55] LABS: BLOOD UREA NITROGEN 56 mg/dl (7-18); BUN/CREATININE RATIO 22.3 (10-20); GLUCOSE 125 mg/dl (70-99); SODIUM 139 mmol/L (136-145)
[2016-08-07 10:56] LABS: CARBON DIOXIDE 27 mmol/L (21-32); CHLORIDE 107 mmol/L (98-107); POTASSIUM 4.2 mmol/L (3.5-5.1)
[2016-08-07 10:57] LABS: CALCIUM 9.6 mg/dl (8.5-10.1)
== END | disposition home or self-care (01) ==
LOC: C.LAB1850 09:43
PROVIDERS: ATTEND Internal Medicine Nephrology
DX: N18.3 Chronic kidney disease, stage 3 (moderate) (principal)

== ENCOUNTER → 2016-09-09 | Outpatient (CLI) | payer OTHER ==
[2016-09-09 13:01] LABS: THYROID STIMULATING HORMONE < 0.005 uIu/ml (0.300-4.500); URIC ACID 7.8 mg/dl (2.6-7.2)
== END | disposition home or self-care (01) ==
LOC: C.LAB1850 10:53
PROVIDERS: ATTEND Nurse Practitioner Adult Health
DX: E05.90 Thyrotoxicosis, unspecified without thyrotoxic crisis or storm (principal); M10.9 Gout, unspecified

== ENCOUNTER 2018-03-16 16:11 | Inpatient (IN) ==
[2018-03-16 17:00] LABS: Basophils # (auto) 0.03 K/uL (0-0.2); Basophils % (auto) 0.3 %; Eosinophils # (auto) 0.29 K/uL (0-0.5); Hematocrit (blood only) 27.4 % (42-52); Hemoglobin 8.9 g/dL (14.0-18.0); Immature Granulocytes # (auto) 0.02 K/uL (0.00-0.02); Immature Granulocytes % (auto) 0.2 %; Lymphocytes % (auto) 13.6 %; Mean Corpuscular Hgb Conc 32.5 g/dL (32-36); Mean Corpuscular Volume 82.5 fL (80-100); Mean Platelet Volume 9.3 fL (7.4-10.4); Monocytes # (auto) 0.89 K/uL (0.11-0.59); Monocytes % (auto) 9.3 %; Neutrophils # (auto) 7.02 K/uL (1.4-6.5); Neutrophils % (auto) 73.6 %; Platelet Count 312 K/uL (130-400); RDW Coefficient of Variation 16.5 % (11.5-14.5); RDW Standard Deviation 50.3 fL (36.4-46.3); Red Blood Count 3.32 M/uL (4.7-6.1); White Blood Count 9.55 K/uL (4.8-10.8)
[2018-03-16 17:15] LABS: INR 1.1 (0.9-1.1); Partial Thromboplastin Ratio 1.1; Partial Thromboplastin Time 28.5 Seconds (21.0-31.0)
[2018-03-16 17:16] LABS: Albumin Level 2.7 gm/dl (3.4-5.0); BUN Creatinine Ratio 17.4 (10-20); Blood Urea Nitrogen 63 mg/dl (7-18); Calcium 8.7 mg/dl (8.5-10.1); Carbon Dioxide 24 mmol/L (21-32); Chloride 110 mmol/L (98-107); Creatinine Clr Calc Pharmacy 20.2 ml/min; Est GFR (African American) 18.7; Est GFR (Non-African American) 16.1; Glucose 113 mg/dl (70-99); Potassium 4.9 mmol/L (3.5-5.1); Sodium 139 mmol/L (136-145)
[2018-03-16 17:21] LABS: Alanine Aminotransferase 17 U/L (12-78); Albumin Globulin Ratio 0.6 (0.9-2); Alkaline Phosphatase 101 U/L (45-117); Aspartate Aminotransferase 10 U/L (15-37); Bilirubin,Total 0.4 mg/dl (0.2-1); Globulin 4.3 gm/dl (2.5-4.0); Troponin I < 0.015 ng/ml (0-0.045)
[2018-03-16 18:03] LABS: Ovalocytes 1+; Spherocytes 1+
[2018-03-16] MEDS ORDERED: SULFAMETHOXAZOLE/TRIMETHOPRIM DS 800/160MG TAB PO ONE (18:07)
[2018-03-16] MEDS ORDERED: cefTRIAXone SODIUM 1,000 MG/50 ML BAG IV STA (18:07)
--- NOTE | 2018-03-16 18:15 | XRay Report ---
XR chest 1V portable CLINICAL HISTORY: Pt c/o SOB dyspnea COMPARISON STUDY: 03/28/2012 FINDINGS: Small parenchymal infiltrate right base. Minimal atelectasis left base. Lungs otherwise shant ear clear. IMPRESSION: Small parenchymal infiltrate right base. Mild cardiomegaly. The above report was generated using voice recognition software. It may contain grammatical, syntax or spelling errors. Electronically signed by: Elliot Mueller M.D. 03/16/2018 6:14 PM
[2018-03-16 18:49] LABS: NT Pro B Type Natriuretic Pept 9489 pg/ml (0-900)
[2018-03-16] MEDS ORDERED: PANTOPRAZOLE BOLUS/DRIP 1 EA IV STA (18:56)
[2018-03-16] MEDS ORDERED: PANTOprazole 80 MG in DEXTROSE 5% 100 ML IV ONE (18:56)
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
[2018-03-16] MEDS: PANTOprazole 40 MG in DEXTROSE 5% 100 ML IV SCH (19:52)
[2018-03-16] MEDS ORDERED: FUROSEMIDE 40 MG/4 ML VIAL IV STA (20:08)
[2018-03-16] MEDS ORDERED: GLUCOSE 10 TABS/TUBE PO PRN (21:49)
[2018-03-16] MEDS ORDERED: ONDANSETRON INJ 2 MG/ML 2 ML VIAL IV PRN (21:49)
[2018-03-16] MEDS ORDERED: MAGNESIUM HYDROXIDE SUSP 30 ML UDC PO PRN (21:49)
[2018-03-16] MEDS ORDERED: CARBOHYDRATES FOR HYPOGLYCEMIA PO PRN (21:49)
[2018-03-16] MEDS ORDERED: DEXTROSE 50% 50 ML SYRINGE IV PRN (21:49)
[2018-03-16] MEDS ORDERED: GLUCOSE 40% GEL 15 GM TUBE PO PRN (21:49)
[2018-03-16] MEDS ORDERED: GLUCAGON FOR INJ 1 MG VIAL SQ PRN (21:49)
[2018-03-16] MEDS ORDERED: ALUMINUM/MAGNESIUM SUSP 30 ML UDC PO PRN (21:49)
[2018-03-16] MEDS ORDERED: POLYETHYLENE (MIRALAX) 17 GM PACK PO PRN (21:49)
[2018-03-16] MEDS ORDERED: ACETAMINOPHEN 325 MG TAB PO PRN (21:49)
[2018-03-16 22:14] LABS: Hematocrit (blood only) 26.5 % (42-52); Hemoglobin 8.6 g/dL (14.0-18.0)
[2018-03-16] MEDS: METOPROLOL TARTRATE 50 MG TAB PO SCH (23:42)
[2018-03-16] MEDS: DOXYCYCLINE HYCLATE 100 MG CAP PO SCH (23:43)
[2018-03-16] MEDS: HydrALAZINE TAB 50 MG TAB PO SCH (23:43)
[2018-03-16] MEDS: INSULIN GLARGINE SOLOSTAR 100 UNITS/ML 3 ML PEN SC SCH (23:44)
[2018-03-16] MEDS: INSULIN ASPART 100 UNITS/ML 3 ML PEN SC SCH (23:45)
[2018-03-17] MEDS: PANTOprazole 40 MG in DEXTROSE 5% 100 ML IV SCH ×4 (00:12→15:11)
[2018-03-17] MEDS: NICOTINE 21 MG/24 HR TDSY TD SCH (02:05)
[2018-03-17 06:02] LABS: Hematocrit (blood only) 24.3 % (42-52); Hemoglobin 7.7 g/dL (14.0-18.0); Mean Corpuscular Hgb Conc 31.7 g/dL (32-36); Mean Corpuscular Volume 82.1 fL (80-100); Mean Platelet Volume 9.5 fL (7.4-10.4); Platelet Count 293 K/uL (130-400); RDW Coefficient of Variation 16.5 % (11.5-14.5); RDW Standard Deviation 49.7 fL (36.4-46.3); Red Blood Count 2.96 M/uL (4.7-6.1); White Blood Count 8.74 K/uL (4.8-10.8)
[2018-03-17 06:30] LABS: Albumin Level 2.6 gm/dl (3.4-5.0); BUN Creatinine Ratio 16.6 (10-20); Calcium 8.2 mg/dl (8.5-10.1); Creatinine Clr Calc Pharmacy 18.1 ml/min; Est GFR (African American) 16.2; Magnesium 2.1 mg/dl (1.8-2.4); Potassium 4.6 mmol/L (3.5-5.1)
[2018-03-17] MEDS: HydrALAZINE TAB 50 MG TAB PO SCH ×3 (06:31→21:35)
[2018-03-17 06:32] LABS: Albumin Globulin Ratio 0.7 (0.9-2); Bilirubin,Total 0.2 mg/dl (0.2-1); Globulin 3.8 gm/dl (2.5-4.0); Phosphorus 5.3 mg/dl (2.5-4.9); Total Protein 6.4 gm/dl (6.4-8.2)
[2018-03-17] MEDS ORDERED: SODIUM CHLORIDE 0.9% 250 ML IV PRN (06:47)
[2018-03-17] MEDS ORDERED: ACETAMINOPHEN 325 MG TAB PO ONE (07:48)
[2018-03-17] MEDS: INSULIN ASPART 100 UNITS/ML 3 ML PEN SC SCH ×4 (08:18→21:33)
[2018-03-17] MEDS: INSULIN GLARGINE SOLOSTAR 100 UNITS/ML 3 ML PEN SC SCH ×2 (08:53→21:33)
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
[2018-03-17] MEDS: METOPROLOL TARTRATE 50 MG TAB PO SCH ×2 (08:54→21:34)
[2018-03-17] MEDS: AMLODIPINE BESYLATE 5 MG TAB PO SCH (08:54)
[2018-03-17] MEDS: FINASTERIDE 5 MG TAB PO SCH (08:55)
[2018-03-17] MEDS: methIMAzole 5 MG TABLET PO SCH (08:56)
[2018-03-17] MEDS ORDERED: FUROSEMIDE 20 MG in SYRINGE 0 ML IV SCH (09:00)
[2018-03-17] MEDS: ALLOPURINOL 100 MG TAB PO SCH (09:00)
[2018-03-17] MEDS ORDERED: NICOTINE 21 MG/24 HR TDSY TD SCH (09:00)
[2018-03-17] MEDS ORDERED: FUROSEMIDE 40 MG in SYRINGE 0 ML IV ONE (09:00)
[2018-03-17] MEDS: CHOLECALCIFEROL 1,000 UNITS TAB PO SCH (09:00)
[2018-03-17] MEDS ORDERED: FUROSEMIDE 40 MG/4 ML VIAL IV ONE (09:00)
[2018-03-17] MEDS ORDERED: DOXYCYCLINE HYCLATE 100 MG CAP PO SCH (09:00)
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
[2018-03-17] MEDS: DOXYCYCLINE HYCLATE 100 MG CAP PO SCH ×2 (09:56→21:34)
[2018-03-17] MEDS ORDERED: FUROSEMIDE 20 MG in SYRINGE 0 ML IV ONE (11:00)
[2018-03-17] MEDS ORDERED: cefTRIAXone SODIUM 2,000 MG in DEXTROSE 5% 50 ML IV SCH (16:00)
--- NOTE | 2018-03-17 16:01 | Hospitalist Progress Note ---
Date of Service March 17, 2018 Assessment & Plan (1) Diastolic CHF: Patient presented with volume overload, and acute decompensation of diastolic CHF Increased bilateral lower extremity edema Dyspnea on exertion elevated BNP to 9489 Patient denies of any orthopnea Mentions gets short of breath early in the morning, symptoms are not improved at the day progresses Symptoms has been ongoing for the past 3 weeks Patient mentioned has not been taking diuretics: Torsemide for 2 months, as he feels it makes his legs swelled up Chest x-ray revealed cardiomegaly and a right basilar infiltrate and no other acute cardiopulmonary abnormality. Echo on: 12/2017 EF 55% with grade 2 diastolic dysfunction with LVH, mild aortic stenosis Patient admitted to telemetry, Started with IV Lasix 40 mg twice daily Associated with significant diuresis, patient reports of improvement of his symptoms, resolution of bilateral lower extremity edema Cardiology consulted, appreciate input Continue to monitor daily weight and standing still, input output Echocardiogram (2) Bilateral lower leg cellulitis: Possible secondary to chronic venous stasis, No objective evidence of infection noted, no increased warmth -Patient is afebrile and white blood cell count is 9.5 Patient was given IV Rocephin, -Patient is counseled for compliance with diuretics, salt restriction - procalcitonin-within normal limits Order to DC antibiotic Present on Admission?: Yes (3) Anemia: -H/H 8.9 and 27.9 -Baseline hemoglobin 1012 most likely secondary to anemia of chronic disease and CKD stage IV -FOBT positive with reports of tarry stool - PPI bolus and drip as started in ED - Repeat H&H: Hemoglobin dropped 7.7 No evidence of melena, or dark tarry stool, no hematemesis no nausea vomiting Patient received 2 unit of PRBC transfusion GI evaluation requested, appreciate input As there is no evidence of active bleeding, IV Protonix drip can be discontinued Recommend outpatient follow-up with GI for EGD and screening colonoscopy Present on Admission?: Yes (4) Hypertension: -Blood pressure stable - -Continue metoprolol, hydralazine, amlodipine -Consider to switch Norvasc to different antihypertensive, due to side effect of lower extremity edema Present on Admission?: Yes (5) CKD (chronic kidney disease) stage 4, GFR 15-29 ml/min: -Baseline creatinine 3.5 -Creatinine worsened after IV diuretics No evidence of volume overload Electrolytes remain stable, no acute indication for dialysis -Patient follows with Dr. Grecia Patel-consulted, Appreciate input IV Lasix kept on hold today Patient will be reevaluated tomorrow for adjustment of diuretics (6) Hyperthyroidism: -Continue methimazole (7) COPD (chronic obstructive pulmonary disease): -No acute exacerbation -Albuterol as needed -Recommend smoking cessation (8) Tobacco dependence syndrome: -Nicotine patch ordered -Smoking cessation encouraged (9) DVT prophylaxis: -Moderate to high risk, given lower extremity swelling Ordered for subcu heparin Disposition: Discharged home in stable Update given to present at bedside Follow-up: PCP Dr. Logan check upon discharge . Subjective Patient sit up up on edge of the bed, says that he feels much better Denies of any shortness of breath, dyspnea on exertion no orthopnea No history of GI bleed, had normal brown bowel movement earlier today No nausea vomiting, tolerating diet Vitals remain stable No fever or chills Physical Exam 2 Vital Signs (Past 24 Hours): Last Vital Signs Temp 36.4 C L 03/17/18 15:31 Pulse 69 03/17/18 15:31 Resp 18 03/17/18 15:31 BP 169/75 H 03/17/18 15:31 Pulse Ox 96 03/17/18 15:31 Constitutional: WD/WN, vitals as above no acute distress Eyes: + anicteric sclerae ENMT: external ear and nose normal, oropharynx normal Respiratory: normal respiratory effort, lungs clear to auscultation no cough Auscultation: lungs clear to auscultation bilaterally; no crackles, no rales, no rhonchi and no wheezes Cardiovascular: Rate/Rhythm: regular rate and regular rhythm Vessels: no JVD Extremities: normal capillary refill and + edema (Trace bilateral lower extremity edema, improved erythema, no tenderness, no increased warmth) Musculoskeletal: no cyanosis or clubbing, extremities motor strength 5/5 Skin: no rashes, warm and dry Neurologic: PERRL, EOMI, accommodation nl, no face palsy, no dysarthria Psychiatric: A+Ox3, euthymic affect _ (1) Diastolic CHF Heart failure chronicity: acute on chronic Qualified Code(s): I50.33 - Acute on chronic diastolic (congestive) heart failure (2) Anemia Anemia type: other cause Other causes of anemia: other cause, not classified Qualified Code(s): D64.89 - Other specified anemias (3) COPD (chronic obstructive pulmonary disease) COPD type: unspecified COPD Qualified Code(s): J44.9 - Chronic obstructive pulmonary disease, unspecified (4) Hypertension Hypertension type: essential hypertension Qualified Code(s): I10 - Essential (primary) hypertension
[2018-03-17 16:20] LABS: Hematocrit (blood only) 30.9 % (42-52); Hemoglobin 10.3 g/dL (14.0-18.0)
[2018-03-17] MEDS ORDERED: BUMETANIDE 1 MG TAB PO SCH (17:00)
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
[2018-03-17] MEDS: FUROSEMIDE 40 MG in SYRINGE 0 ML IV SCH (19:58)
[2018-03-17 20:25] LABS: Appearance Urine Clear (Clear); Bacteria Urine Automated Negative (Negative); Bilirubin Urine Negative (Negative); Blood Urine Negative (Negative); Color Urine Yellow; Epithelial Cell Urine Auto 0-5 /lpf (0-5); Glucose Urine UA Negative (Negative); Ketones Urine Negative (Negative); Leukocyte Esterase Urine Negative (Negative); Nitrite Urine Negative (Negative); Protein Urine 3+ (Negative); RBC Urine Automated 0-4 /hpf (0-4); Urobilinogen Urine Negative (Negative)
[2018-03-17 20:53] LABS: Creatinine Urine Random 27.4 mg/dl; Total Protein Urine Random 180.5 mg/dl (0-11.9)
[2018-03-17] MEDS: HEPARIN SOD 5,000 UNIT/0.5 ML VIAL SQ SCH (21:33)
[2018-03-18] MEDS: HydrALAZINE TAB 50 MG TAB PO SCH ×2 (06:09→14:24)
[2018-03-18] MEDS: HEPARIN SOD 5,000 UNIT/0.5 ML VIAL SQ SCH ×2 (06:12→14:23)
[2018-03-18 06:41] LABS: Hematocrit (blood only) 28.1 % (42-52); Hemoglobin 9.4 g/dL (14.0-18.0); Mean Corpuscular Hgb Conc 33.5 g/dL (32-36); Mean Corpuscular Volume 82.6 fL (80-100); Platelet Count 271 K/uL (130-400); RDW Coefficient of Variation 16.3 % (11.5-14.5); RDW Standard Deviation 49.1 fL (36.4-46.3); White Blood Count 7.41 K/uL (4.8-10.8)
[2018-03-18 07:25] LABS: BUN Creatinine Ratio 14.9 (10-20); Calcium 8.3 mg/dl (8.5-10.1); Creatinine Clr Calc Pharmacy 15.7 ml/min; Est GFR (African American) 13.8; Est GFR (Non-African American) 11.9; Potassium 4.9 mmol/L (3.5-5.1)
--- NOTE | 2018-03-18 07:28 | Gastroenterology Progress Note ---
Date of Service March 18, 2018 Assessment & Plan (1) Anemia: 67 year old male with T2DM, CKD, HTN, COPD, chronic anemia admitted with CHF (BNP nearly 10,000) GI asked to evaluate for normocytic anemia w/ H&H 7.7/ 24 w/ baseline 9. He does report a single isolated episode of melena a day prior to arrival, now w/ brown stool. Has never had an EGD/Colon. He is hypertensive, otherwise vitals stable. - No current evidence of acute GI bleed would recommend the following: - No urgent indication for endoscopy, optimize cardiopulmonary status - EGD/Colonoscopy as an OP in 2-4 weeks - Trend H&H - Document all GI output - Transfusion per primary service for HGB < 7 - PO PPI G to sign off. Thank you for allowing us to participate in the care of this patient. Please call with any acute changes, questions or concerns. Please see addendum below with additional recommendation from my supervising physician. Supervising Physician Co-Signing Physician Notes I saw and evaluated the patient. There is been no further passage of dark stool since admission. In addition his blood count has remained stable. Given this I think it would be prudent to hold his endoscopic evaluations until after his cardiac and respiratory status have been maximized. Please call with any questions or concerns during the hospital admission. We will plan to do an elective upper endoscopy and colonoscopy in 4-6 weeks. Subjective Pt was seen and evaluated, chart reviewed. Feels well. Moved bowels this AM, brown stools. No abd pain. No nausea, vomiting. No fever, chills. Wants to go home. No SOB, CP. Constitutional: + weight gain; no fever, no chills, no fatigue, no anorexia and no weight loss Respiratory: no cough, no dyspnea and no dyspnea on exertion Cardiovascular: no chest pain, no radiating jaw, neck or arm pain and no dyspnea Gastrointestinal: no abdominal pain, no early satiety, no heartburn, no vomiting , no coffee ground emesis and no dysphagia Physical Exam 2 Vital Signs (Past 24 Hours): Last Vital Signs Temp 36.6 C 03/18/18 06:32 Pulse 73 03/18/18 06:32 Resp 18 03/18/18 06:32 BP 161/77 H 03/18/18 06:32 Pulse Ox 95 03/18/18 06:32 Constitutional: well nourished, cooperative and comfortable; no acute distress Respiratory: normal respiratory effort, lungs clear to auscultation Cardiovascular: Heart Sounds: normal S1, normal S2 and + murmur; no click and no cardiac rub Gastrointestinal (Abdomen): normal bowel sounds, soft, nontender, no hepatosplenomegaly Skin: bilateral 3+ pitting edema Results & Data Laboratory Results 03/18/18 03/18/18 03/18/18 Range/Units 07:00 06:17 06:17 WBC 7.41 (4.8-10.8) K/uL RBC 3.40 L (4.7-6.1) M/uL Hgb 9.4 L (14.0-18.0) g/dL Hct 28.1 L (42-52) % MCV 82.6 (80-100) fL MCH 27.6 (25-34) pg MCHC 33.5 (32-36) g/dL RDW Std Deviation 49.1 H (36.4-46.3) fL RDW Coeff of Shaylee 16.3 H (11.5-14.5) % Plt Count 271 (130-400) K/uL MPV 10.0 (7.4-10.4) fL Sodium 139 (136-145) mmol/L Potassium 4.9 (3.5-5.1) mmol/L Chloride 109 H (98-107) mmol/L Carbon Dioxide 23 (21-32) mmol/L Anion Gap 7.0 (3-11) BUN 70 H (7-18) mg/dl Creatinine 4.69 H* D (0.6-1.4) mg/dl Est Cr Clr Drug Dosing 15.7 ml/min Est GFR ( Amer) 13.8 Est GFR (Non-Af Amer) 11.9 BUN/Creatinine Ratio 14.9 (10-20) Glucose 108 H (70-99) mg/dl POC Glucose 112 H (70-99) Calcium 8.3 L (8.5-10.1) mg/dl Urine Color Urine Appearance (Clear) Urine pH (4.5-7.5) Ur Specific Hudson (1.000-1.030) Urine Protein (Negative) Urine Glucose (UA) (Negative) Urine Ketones (Negative) Urine Blood (Negative) Urine Nitrite (Negative) Urine Bilirubin (Negative) Urine Urobilinogen (Negative) Ur Leukocyte Esterase (Negative) Urine WBC (Auto) (0-5) /hpf Urine RBC (Auto) (0-4) /hpf U Hyaline Cast (Auto) (0-5) /lpf U Epithel Cells (Auto) (0-5) /lpf Urine Bacteria (Auto) (Negative) Ur Random Creatinine mg/dl U Random Total Protein (0-11.9) mg/dl Protein/Creatinin Ratio (0-0.2) Blood Type Blood Type Recheck Antibody Screen Crossmatch 03/17/18 03/17/18 03/17/18 Range/Units 20:05 20:05 19:37 WBC (4.8-10.8) K/uL RBC (4.7-6.1) M/uL Hgb (14.0-18.0) g/dL Hct (42-52) % MCV (80-100) fL MCH (25-34) pg MCHC (32-36) g/dL RDW Std Deviation (36.4-46.3) fL RDW Coeff of Shaylee (11.5-14.5) % Plt Count (130-400) K/uL MPV (7.4-10.4) fL Sodium (136-145) mmol/L Potassium (3.5-5.1) mmol/L Chloride (98-107) mmol/L Carbon Dioxide (21-32) mmol/L Anion Gap (3-11) BUN (7-18) mg/dl Creatinine (0.6-1.4) mg/dl Est Cr Clr Drug Dosing ml/min Est GFR ( Amer) Est GFR (Non-Af Amer) BUN/Creatinine Ratio (10-20) Glucose (70-99) mg/dl POC Glucose 73 (70-99) Calcium (8.5-10.1) mg/dl Urine Color Yellow Urine Appearance Clear (Clear) Urine pH 6.0 (4.5-7.5) Ur Specific Hudson 1.010 (1.000-1.030) Urine Protein 3+ H (Negative) Urine Glucose (UA) Negative (Negative) Urine Ketones Negative (Negative) Urine Blood Negative (Negative) Urine Nitrite Negative (Negative) Urine Bilirubin Negative (Negative) Urine Urobilinogen Negative (Negative) Ur Leukocyte Esterase Negative (Negative) Urine WBC (Auto) 1-5 (0-5) /hpf Urine RBC (Auto) 0-4 (0-4) /hpf U Hyaline Cast (Auto) 1-5 (0-5) /lpf U Epithel Cells (Auto) 0-5 (0-5) /lpf Urine Bacteria (Auto) Negative (Negative) Ur Random Creatinine 27.4 mg/dl U Random Total Protein 180.5 H (0-11.9) mg/dl Protein/Creatinin Ratio 6.6 H (0-0.2) Blood Type Blood Type Recheck Antibody Screen Crossmatch 03/17/18 03/17/18 03/17/18 Range/Units 16:29 16:04 11:02 WBC (4.8-10.8) K/uL RBC (4.7-6.1) M/uL Hgb 10.3 L (14.0-18.0) g/dL Hct 30.9 L (42-52) % MCV (80-100) fL MCH (25-34) pg MCHC (32-36) g/dL RDW Std Deviation (36.4-46.3) fL RDW Coeff of Shaylee (11.5-14.5) % Plt Count (130-400) K/uL MPV (7.4-10.4) fL Sodium (136-145) mmol/L Potassium (3.5-5.1) mmol/L Chloride (98-107) mmol/L Carbon Dioxide (21-32) mmol/L Anion Gap (3-11) BUN (7-18) mg/dl Creatinine (0.6-1.4) mg/dl Est Cr Clr Drug Dosing ml/min Est GFR ( Amer) Est GFR (Non-Af Amer) BUN/Creatinine Ratio (10-20) Glucose (70-99) mg/dl POC Glucose 108 H 82 (70-99) Calcium (8.5-10.1) mg/dl Urine Color Urine Appearance (Clear) Urine pH (4.5-7.5) Ur Specific Hudson (1.000-1.030) Urine Protein (Negative) Urine Glucose (UA) (Negative) Urine Ketones (Negative) Urine Blood (Negative) Urine Nitrite (Negative) Urine Bilirubin (Negative) Urine Urobilinogen (Negative) Ur Leukocyte Esterase (Negative) Urine WBC (Auto) (0-5) /hpf Urine RBC (Auto) (0-4) /hpf U Hyaline Cast (Auto) (0-5) /lpf U Epithel Cells (Auto) (0-5) /lpf Urine Bacteria (Auto) (Negative) Ur Random Creatinine mg/dl U Random Total Protein (0-11.9) mg/dl Protein/Creatinin Ratio (0-0.2) Blood Type Blood Type Recheck Antibody Screen Crossmatch 03/17/18 03/17/18 03/16/18 Range/Units 07:16 05:52 19:18 WBC (4.8-10.8) K/uL RBC (4.7-6.1) M/uL Hgb (14.0-18.0) g/dL Hct (42-52) % MCV (80-100) fL MCH (25-34) pg MCHC (32-36) g/dL RDW Std Deviation (36.4-46.3) fL RDW Coeff of Shaylee (11.5-14.5) % Plt Count (130-400) K/uL MPV (7.4-10.4) fL Sodium (136-145) mmol/L Potassium (3.5-5.1) mmol/L Chloride (98-107) mmol/L Carbon Dioxide (21-32) mmol/L Anion Gap (3-11) BUN (7-18) mg/dl Creatinine (0.6-1.4) mg/dl Est Cr Clr Drug Dosing ml/min Est GFR ( Amer) Est GFR (Non-Af Amer) BUN/Creatinine Ratio (10-20) Glucose (70-99) mg/dl POC Glucose 112 H (70-99) Calcium (8.5-10.1) mg/dl Urine Color Urine Appearance (Clear) Urine pH (4.5-7.5) Ur Specific Hudson (1.000-1.030) Urine Protein (Negative) Urine Glucose (UA) (Negative) Urine Ketones (Negative) Urine Blood (Negative) Urine Nitrite (Negative) Urine Bilirubin (Negative) Urine Urobilinogen (Negative) Ur Leukocyte Esterase (Negative) Urine WBC (Auto) (0-5) /hpf Urine RBC (Auto) (0-4) /hpf U Hyaline Cast (Auto) (0-5) /lpf U Epithel Cells (Auto) (0-5) /lpf Urine Bacteria (Auto) (Negative) Ur Random Creatinine mg/dl U Random Total Protein (0-11.9) mg/dl Protein/Creatinin Ratio (0-0.2) Blood Type O Positive Blood Type Recheck O Positive Antibody Screen NEGATIVE Crossmatch See Detail _ (1) Anemia Anemia type: other cause Bone marrow failure anemia type: Chronic kidney disease stage: Folate deficiency anemia type: Hemolytic anemia type: Iron deficiency anemia type: Other causes of anemia: other cause, not classified Vitamin B12 deficiency anemia type: Qualified Code(s): D64.89 - Other specified anemias
[2018-03-18] MEDS: ALLOPURINOL 100 MG TAB PO SCH (07:38)
[2018-03-18] MEDS: CHOLECALCIFEROL 1,000 UNITS TAB PO SCH (07:39)
[2018-03-18] MEDS: AMLODIPINE BESYLATE 5 MG TAB PO SCH (07:39)
[2018-03-18] MEDS: methIMAzole 5 MG TABLET PO SCH (07:39)
[2018-03-18] MEDS: DOXYCYCLINE HYCLATE 100 MG CAP PO SCH (07:40)
[2018-03-18] MEDS: FINASTERIDE 5 MG TAB PO SCH (07:40)
[2018-03-18] MEDS: METOPROLOL TARTRATE 50 MG TAB PO SCH (07:40)
[2018-03-18] MEDS: NICOTINE 21 MG/24 HR TDSY TD SCH (07:41)
[2018-03-18] MEDS: INSULIN GLARGINE SOLOSTAR 100 UNITS/ML 3 ML PEN SC SCH (07:43)
[2018-03-18] MEDS: INSULIN ASPART 100 UNITS/ML 3 ML PEN SC SCH ×2 (07:44→12:07)
--- NOTE | 2018-03-18 07:59 | Nephrology Progress Note ---
Date of Service March 18, 2018 Assessment & Plan (1) CKD (chronic kidney disease) stage 5, GFR less than 15 ml/min: His baseline creatinine had been mid 3's as OP but this is without any diuretics on board which he obviously needs. from 3.7 on presentation he is up to 4.7 today; actually here last month his creatinine was 4.1-4.3 no emergent indication for dialysis but he is very close to needing it, likely this admission given response to diuretics. I had a discussion about this wtih patient ( his was not available today) >> pt declines to start dialysis, declines to continue to stay in hospital, states he wants to go home w/ po diuretics; I strongly discouraged this but he is not willing to change>> advised complications could be heart attack, stroke, , infection, nonhealing wounds, limb compromise <<>> this from volume overload and uncontrolled HTN, neither of which can be addressed w/o adequate diuresis which should be IV and will likely end up wtih need for dialysis -continue IV lasix in house -daily bmp -cont heart healthy, < 2 gm sodium; added to this 1.5L FR; likely to need renal diet as well soon -continue home BP meds at d/c except diuretics as below >>my recommendation would be to stay in house and continue diuresis through the weekend w/ a high likelihood that he would fail IV diuretics and need to start dialysis early next week via catheter; pt does not wish to pursue this plan despite risks discussed above DISCHARGE RECOMMENDATIONS >> sodium and fluid restrictions as above, daily standing weight, recommend torsemide 120 mg daily and metolazone 5 mg daily; would NOT resume bumex though this is what pt states he wishes to do >> my concern is taht he did not take it before and don't see why would start now plus as bid med this is hard to do correctly/consistently; also recommend ESRD planning class at [facility] (he declines) and appt w/ Dr Rea as OP to discuss AVF creation; recommend weekly bmp x 4 wks; recommend he see me or my partner in [place] or [facility] in 2-4 wks << we will arrange (2) Nephrotic syndrome: NS and not just nephrotic range proteinuria d/t edema, htn, volume overload; agree w/ clinical impression that redness in his legs is more likely related to venous stasis changes from NS >> no leukocytosis, no F/C, no pain or warmth in legs -diuresis as above >>>defer to hospitalist service if we can find dm meds that are not as prone to cause edema (can we change out pioglitazone); of course bp meds contribute as well but I see little chance to lessen these currently (3) Anemia: acute on chronic; hgb dropped to 7.7 2/7 adn pt had 2 units pRBC; then hgb from 10.1>9.4 despite diuresis in <24 hr -daily hgb -f/u GI recs of OP colonoscopy / EGD Subjective edema improving. no sob or cough. no back or leg /joint pain. legs less red; no wound broken skin or rash. no chest pain or palpitations. no n/v/d/abd pain. denies new/worrisome voidign concerns. no f/c and eating well. no overt bleeding Physical Exam 2 Vital Signs (Past 24 Hours): Last Vital Signs Temp 36.6 C 03/18/18 06:32 Pulse 73 03/18/18 06:32 Resp 18 03/18/18 06:32 BP 161/77 H 03/18/18 06:32 Pulse Ox 95 03/18/18 06:32 Constitutional: well developed, well nourished and + edematous A&0 x 3 on RA Eyes: EOM intact bilaterally ENMT: Ears: no external ear abnormality Nose: no external nose abnormality Mouth: + dry oral mucous membranes Neck: no nuchal rigidity Respiratory: normal respiratory effort Auscultation: + diminished lung sounds Cardiovascular: Rate/Rhythm: regular rate and regular rhythm Extremities: + edema (2-3+) Gastrointestinal (Abdomen): Inspection/Auscultation: normal bowel sounds Percussion/Palpation: abdomen soft; abdomen nontender Musculoskeletal: Extremities: strength 5/5 throughout Skin: no rashes, warm and dry + skin tightening (w/ edema) Neurologic: bobby, fluent speech Psychiatric: A+Ox3, euthymic affect Genitourinary: no العلي Results & Data Laboratory Results Abnormal lab results 03/16/18 03/17/18 03/17/18 Range/Units 19:18 16:04 16:29 RBC (4.7-6.1) M/uL Hgb 10.3 L (14.0-18.0) g/dL Hct 30.9 L (42-52) % RDW Std Deviation (36.4-46.3) fL RDW Coeff of Shaylee (11.5-14.5) % Chloride (98-107) mmol/L BUN (7-18) mg/dl Creatinine (0.6-1.4) mg/dl Glucose (70-99) mg/dl POC Glucose 108 H (70-99) Calcium (8.5-10.1) mg/dl Urine Protein (Negative) U Random Total Protein (0-11.9) mg/dl Protein/Creatinin Ratio (0-0.2) Crossmatch See Detail 03/17/18 03/17/18 03/18/18 Range/Units 20:05 20:05 06:17 RBC (4.7-6.1) M/uL Hgb (14.0-18.0) g/dL Hct (42-52) % RDW Std Deviation (36.4-46.3) fL RDW Coeff of Shaylee (11.5-14.5) % Chloride 109 H (98-107) mmol/L BUN 70 H (7-18) mg/dl Creatinine 4.69 H* D (0.6-1.4) mg/dl Glucose 108 H (70-99) mg/dl POC Glucose (70-99) Calcium 8.3 L (8.5-10.1) mg/dl Urine Protein 3+ H (Negative) U Random Total Protein 180.5 H (0-11.9) mg/dl Protein/Creatinin Ratio 6.6 H (0-0.2) Crossmatch 03/18/18 03/18/18 Range/Units 06:17 07:00 RBC 3.40 L (4.7-6.1) M/uL Hgb 9.4 L (14.0-18.0) g/dL Hct 28.1 L (42-52) % RDW Std Deviation 49.1 H (36.4-46.3) fL RDW Coeff of Shaylee 16.3 H (11.5-14.5) % Chloride (98-107) mmol/L BUN (7-18) mg/dl Creatinine (0.6-1.4) mg/dl Glucose (70-99) mg/dl POC Glucose 112 H (70-99) Calcium (8.5-10.1) mg/dl Urine Protein (Negative) U Random Total Protein (0-11.9) mg/dl Protein/Creatinin Ratio (0-0.2) Crossmatch _ (1) Anemia Anemia type: other cause Bone marrow failure anemia type: Chronic kidney disease stage: Folate deficiency anemia type: Hemolytic anemia type: Iron deficiency anemia type: Other causes of anemia: other cause, not classified Vitamin B12 deficiency anemia type: Qualified Code(s): D64.89 - Other specified anemias
[2018-03-18] MEDS ORDERED: PANTOprazole 40 MG TAB PO SCH (09:00)
[2018-03-18] MEDS: FUROSEMIDE 40 MG in SYRINGE 0 ML IV SCH (09:41)
--- NOTE | 2018-03-18 09:42 | Cardiology Progress Note ---
Date of Service March 18, 2018 Assessment & Plan (1) Nephrotic syndrome: volume overloading improving our nephrology colleagues following closely will sign off, please call with questions or concerns (2) Diastolic CHF: stable do not believe this to be source of volume overload (3) Aortic stenosis: only mild stable will need f/u as outpatient Subjective Pt seen and examined, upright seated on side of bed. States that he feels well. Lower extremity pain and errythema improving. Continues to deny cp, sob, palpitations, lightheadedness or dizziness. tele reviewed: sinus rhythm without arrhythmia or significant ectopy. Review of Systems All systems reviewed & are unremarkable except as noted in HPI & below Physical Exam 2 Vital Signs (Past 24 Hours): Last Vital Signs Temp 36.6 C 03/18/18 06:32 Pulse 69 03/18/18 08:00 Resp 18 03/18/18 06:32 BP 161/77 H 03/18/18 06:32 Pulse Ox 95 03/18/18 06:32 Physical Exam: General: Awake, alert and oriented x 3. No acute distress. HEENT: Normocephalic, atraumatic. Pupils equal, round and reactive to light and accommodation. Extraocular muscles are intact. Anicteric sclera. Moist mucous membranes. Neck: No JVD. No bruit. Cardiovascular: Regular. Positive S-4. Normal S-1 and S-2. No S-3. 3/6 mid to late systolic ejection murmur, greatest at the right sternal border, second intercostal space with radiation to the bilateral carotids. No rubs. Pulmonary: Clear to auscultation bilaterally. No rales, rhonchi, or wheezing. Abdomen: Bowel sounds x 4, soft. No rebound, guarding or tenderness. No organomegaly. Extremities: No clubbing, cyanosis or edema. +2 pedal pulses bilaterally. Skin: B/L LE erythematous with +1 edema, otherwise, Warm and dry. _ (1) Diastolic CHF Heart failure chronicity: acute on chronic Qualified Code(s): I50.33 - Acute on chronic diastolic (congestive) heart failure
[2018-03-18 14:50] VITALS: PULSE 67; TEMP 97.7; O2SAT 97
[2018-03-18 14:59] VITALS: BP 162/69
--- NOTE | 2018-03-18 15:10 | Discharge Summary ---
Date of Service March 18, 2018 Admission HPI Per Admitting Provider This is a 67-year-old male with significant past medical history of T2 DM, HTN, HLD, Diastolic CHF, CKD stage IV baseline Cr 3.5, anemia of chronic disease, hypothyroidism, COPD, gout who presents to [facility] secondary to lower extremity swelling, redness times 3 weeks. Patient's is at bedside. She does majority of talking. Patient was seen by PCP Dr. Logan this afternoon who referred patient to ED secondary to edema and redness. Patient states he has not been compliant with medications specifically Bumex over the past 3 months. He is unsure of any significant weight gain as he does not check his weight. states he is laid off during the winter therefore he, "hibernate's and puts on weight." He complains of redness to his bilateral lower extremities and is concerned for cellulitis not his swelling. He denies any fever, chills, sweats, lightheadedness, dizziness, chest pain or palpitations, LEONE, shortness of breath, nausea, vomiting, diarrhea , abdominal pain, dysuria, hematuria, hemoptysis. Patient did note he had episode of shortness of breath when he awoke this morning that resolved with getting up and walking around. It was not associated with chest pain, lightheadedness or dizziness. Further he notes he had BM today that was dark and tarry in nature. He does not no prior BMs being dark. He notes he has never had a colonoscopy or endoscopy. His appetite and oral intake has been fine. He has not been monitoring his blood sugars. Principal Diagnosis ACUTE RENAL FAILURE /ANEMIA /CHF WITH DIASTOLIC DYSFUNCTION Discharge Exam Constitutional WD/WN, vitals as above no acute distress Eyes + anicteric sclerae ENMT external ear and nose normal, oropharynx normal Respiratory normal respiratory effort, lungs clear to auscultation no cough Auscultation: lungs clear to auscultation bilaterally; no crackles, no rales, no rhonchi and no wheezes Cardiovascular Rate/Rhythm: regular rate and regular rhythm Vessels: no JVD Extremities: normal capillary refill and + edema (Trace bilateral lower extremity edema, improved erythema, no tenderness, no increased warmth) Musculoskeletal no cyanosis or clubbing, extremities motor strength 5/5 Skin no rashes, warm and dry Neurologic PERRL, EOMI, accommodation nl, no face palsy, no dysarthria Psychiatric A+Ox3, euthymic affect Discharge Data Allergies Allergy/AdvReac Type Severity Reaction Status Date / Time No Known Allergies Allergy NONE Verified 03/16/18 19:23 Consultations 03/16/18 19:00 ED Decision to Admit Stat 03/16/18 21:49 Consult Cardiology Routine Consult Gastroenterology Routine 03/17/18 08:00 Consult Nephrology Routine Hospital Course (1) Diastolic CHF: Patient presented with volume overload, and acute decompensation of diastolic CHF Increased bilateral lower extremity edema Dyspnea on exertion elevated BNP to 9489 Patient denies of any orthopnea Mentions gets short of breath early in the morning, symptoms are not improved at the day progresses Symptoms has been ongoing for the past 3 weeks Patient mentioned has not been taking diuretics: Torsemide for 2 months, as he feels it makes his legs swelled up Chest x-ray revealed cardiomegaly and a right basilar infiltrate and no other acute cardiopulmonary abnormality. Echo on: 12/2017 EF 55% with grade 2 diastolic dysfunction with LVH, mild aortic stenosis Patient admitted to telemetry, Was diuresed with IV Lasix 40 mg twice daily , patient reports of improvement of his symptoms, resolution of bilateral lower extremity edema Cardiology consulted, appreciate input Feels patient's volume overload could be mostly from renal failure/nephrotic syndrome Does not believe patient needs to have a repeat echocardiogram done Recommends to continue diuretics as per nephrology recommendation Outpatient yearly echo for evaluation Does not think patient needs outpatient cardiology follow-up (2) Bilateral lower leg cellulitis: Resolved, edema improved with diuresis Possible secondary to chronic venous stasis, No objective evidence of infection noted, no increased warmth -Patient is afebrile and white blood cell count is 9.5 Patient was given IV Rocephin, -Patient is counseled for compliance with diuretics, salt restriction - procalcitonin-within normal limits Order to DC antibiotic (3) Anemia: -H/H 8.9 and 27.9 -Baseline hemoglobin 1012 most likely secondary to anemia of chronic disease and CKD stage IV -FOBT positive with reports of tarry stool - PPI bolus and drip as started in ED - Repeat H&H: Hemoglobin dropped 7.7 No evidence of melena, or dark tarry stool, no hematemesis no nausea vomiting Patient received 2 unit of PRBC transfusion GI evaluation requested, appreciate input As there is no evidence of active bleeding, IV Protonix drip can be discontinued Changed to p.o. Protonix Hemoglobin stayed stable above 9 Recommend outpatient follow-up with GI for EGD and screening colonoscopy (4) Hypertension: Hypertensive episodes, possible secondary to worsening of kidney function - -Continue metoprolol, hydralazine, amlodipine Appreciate input from nephrology Patient will need to dialysis very soon for blood pressure and volume management Patient counseled repeatedly by Dr. kiah tovar past to follow-up with Dr. Arana for dialysis catheter/AV fistula evaluation Patient refused in past Referral made to Dr. Arana to follow-up in the clinic outpatient (5) CKD (chronic kidney disease) stage 4, GFR 15-29 ml/min: Renal function continues to worsen, creatinine more than 5 with estimated GFR less than 15 nephrotic syndrome for poorly controlled diabetes Appreciate input from nephrology, Patient will soon need dialysis Recommends outpatient follow-up with vascular surgery for dialysis catheter Diuretics changed: Will be discharged on TORSEMIDE 120 MG DAILY METOLAZONE 5 MG DAILY (6) Hyperthyroidism: -Continue methimazole (7) COPD (chronic obstructive pulmonary disease): -No acute exacerbation -Albuterol as needed -Recommend smoking cessation (8) Tobacco dependence syndrome: -Nicotine patch ordered -Smoking cessation encouraged (9) DVT prophylaxis: -Moderate to high risk, given lower extremity swelling Ordered for subcu heparin Disposition: Patient very eager to be discharged home Not want to stay in the hospital to discuss with vascular surgery for dialysis access Hospital follow-up scheduled with patient's family physician on 03/21/2018 Patient will have repeat lab work basic medical panel, CBC on Wednesday Per nephrology, patient will need weekly basic metabolic panel check for 4 weeks Daily standing weight, keeping log Avoid salt, instructed for fluid restriction less than 1500 mL a day Patient is discharged home today with the above instructions . Total Time Total Time Spent Total Time Spent (In Minutes): APPROX 45 MINS Total Time Includes: Examination of the Patient, Discharge Planning, Medication Reconciliation and Communication With Other Providers Discharge Plan Discharge Items Patient Disposition: Home - Self-Care Reason For Visit: GIB,CHF EXAC Discharge Diagnosis: ACUTE RENAL FAILURE /ANEMIA /CHF WITH DIASTOLIC DYSFUNCTION Discharge Goals: Decrease discomfort, Diagnostic testing and Therapeutic intervention Activity: Resume your previous activity Non-emergency contact: Primary Care Provider and [employer] Sales And [employer] Manager Call non-emergency contact if: you have any medication questions Follow-up/Referrals: Grecia Iraheta MD, PhD [Physician] - 04/20/18 11:20 am Paulette Finch [Primary Care Provider] - 03/21/18 12:45 pm Keagan Arana MD [Physician] - (IN 1-2 WEEKS TO ASSESS FOR DIALYSIS CATHETER PLACEMENT ) Diet: Carb Consistent or DM2, Dialysis Renal and Low Sodium (2gm) Fluids: 1500ml (6 cups) Other Ambulatory Orders: Basic Metabolic Panel (Routine) Timeframe: 20180321 Location: Determined by Patient Ordered By: Julissa Gagnon Complete Blood Count no Diff (Routine) Timeframe: 20180321 Location: Determined by Patient Ordered By: Julissa Gagnon Addtl Provider Instructions: SALT AND FLUID RESTRICTION ( 1500 ML FLUID A DAY ) DO NOT TAKE BUMEX NEW MEDICATIONS: TORSEMIDE 120 MG DAILY METOLAZONE 5 MG DAILY NEED TO FOLLOW UP WITH DR ARANA IN CLINIC FOR DIALYSIS ACCESS NEED TO ATTEND DIALYSIS CLASS AT [facility] MEDS: BUMEX PIOGLITAZONE ( DIABETIC MED ) PLEASE FOLLOW UP WITH DIABETIC PHARMACY AT [facility] FOR FURTHER ADJUSTMENT OF DIABETIC MEDS NEED TO HAVE BLOOD WORK CHECK EVERY WEEK FOR AT LEAST [address] FOLLOW UP WITH DR IRAHETA ON 04/20/2018 @11 : 20 AM DO NOT TAKE ASPIRIN , NO MOTRIN , ALEVE , NAPROXEN , IBUPROPHEN -NO NSAID'S WILL CAUSE FURTHER DAMAGE TO YOU KIDNEY ALSO CAN CAUSE BLEEDING IN STOMACH PLEASE NOTIFY DR FINCH WITH ANY EVENT OF BLACK STOOL OR BLOOD IN STOOL NEED TO SCHEDULE FOR EGD AND COLONOSCOPY AT GI CLINIC TO ASSESS FOR ANEMIA NEED YEARLY ECHO TO ASSESS HEART FUNCTION /CHF WITH DIASTOLIC DYSFUNCTION Call your Primary Care doctor if any of the following symptoms or problems start or get worse: * Shortness of breath or difficulty breathing * Wake up at night short of breath * Chest pain * Cough * Swelling of your hands, feet, or legs * More fatigued or tired with your normal activity * Palpitations - sudden fast heart beats WEIGHT * Weigh yourself every morning after using the bathroom. * Use the same scale. * Wear the same amount of clothing. * Write your weight down on a chart. * Call your Primary Care doctor if you gain more than 2-3 pounds in 1-2 days. MEDICATIONS * Use this discharge instruction sheet for medication instructions. * Take your medications at the time your doctor ordered. * Do not skip a dose of your medicines. * If you miss a dose of medicine, take it as soon as possible, but DO NOT DOUBLE A DOSE. * Read your medicine information when you get home. * Know all of the side effects of your medicine. If in doubt, ask your pharmacist * Call your Primary Care doctor's office if you have any side effects. * Be sure all of your doctors know what medicine and herbs you take (including cold, flu, and herbal medicine). Take the following with you to your follow-up doctor appointments: * Weight Chart * Medication List * List of questions Do not drink excessive alcohol, beer or wine. Prescriptions: New doxycycline hyclate 100 mg Capsule 100 mg PO BID 5 Days Qty: 10 RF: 0 metolazone 5 mg tablet 5 mg PO DAILY 30 Days Qty: 30 RF: 2 torsemide 100 mg tablet 120 mg PO DAILY 30 Days Qty: 36 RF: 2 Continue aspirin [Ecotrin Low Strength] 81 mg Tablet,Delayed Release (Dr/Ec) 81 mg PO QAM Qty: 0 RF: 0 allopurinol 100 mg Tablet 200 mg PO QAM Qty: 0 RF: 0 hydralazine 100 mg Tablet 100 mg PO Q8H Qty: 0 RF: 0 methimazole 10 mg Tablet 30 mg PO QAM Qty: 0 RF: 0 finasteride 5 mg Tablet 5 mg PO QAM Qty: 0 RF: 0 metoprolol tartrate [Lopressor] 50 mg Tablet 100 mg PO QAM Qty: 0 RF: 3 metoprolol tartrate [Lopressor] 50 mg Tablet 50 mg PO QPM Qty: 0 RF: 0 amlodipine 10 mg Tablet 10 mg PO QAM RF: 0 linagliptin [Tradjenta] 5 mg Tablet 5 mg PO QAM RF: 0 cholecalciferol (vitamin D3) 5,000 unit Tablet 5,000 unit PO QAM RF: 0 Discontinued pioglitazone 30 mg Tablet 30 mg PO QAM Qty: 0 RF: 3 bumetanide 1 mg Tablet 3 mg PO BID RF: 0 Stand-Alone Forms: [facility] Discharge Orders: Discharge Order (Routine); Ordered 03/18/18 Ordered By: Julissa H Kalin Admission Data Admit Date/Time: 03/16/18 19:35 Attending Provider: Julissa Gagnon Admit Provider: Chaka Sorto Primary Care Provider: Paulette Finch Other Providers: Grecia Iraheta ; Michael Brown ; Ligia Atwood I ; Adriana Gracia ; Yenny Munsno ; Felice Reinoso ; Willian Decker ; Momo Richter ; Chaka Sorto Service: Telemetry Other Interventions: Discharge Summary Assessment (RN) Last Done: 03/18/18 14:58 DC Date/Time DO NOT enter until pt leaves facility: 03/18/18 15:14
--- NOTE | 2018-03-18 20:21 | Emergency Department Note ---
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 (0-0.5) ng/ml TSH (0.300-4.500) uIu/ml Free T4 (0.8-1.6) ng/dl Urine Color Yellow Urine Appearance Clear (Clear) Urine pH 6.0 (4.5-7.5) Ur Specific [place] 1.010 (1.000-1.030) Urine Protein 3+ H (Negative) Urine Glucose (UA) Negative (Negative) Urine Ketones Negative (Negative) Urine Blood Negative (Negative) Urine Nitrite Negative (Negative) Urine Bilirubin Negative (Negative) Urine Urobilinogen Negative (Negative) Ur Leukocyte Esterase Negative (Negative) Urine WBC (Auto) 1-5 (0-5) /hpf Urine RBC (Auto) 0-4 (0-4) /hpf U Hyaline Cast (Auto) 1-5 (0-5) /lpf U Epithel Cells (Auto) 0-5 (0-5) /lpf Urine Bacteria (Auto) Negative (Negative) Ur Random Creatinine mg/dl U Random Total Protein (0-11.9) mg/dl Protein/Creatinin Ratio (0-0.2) Blood Type Blood Type Recheck Antibody Screen Crossmatch 03/17/18 03/18/18 03/18/18 Range/Units 20:05 06:17 06:17 WBC 7.41 (4.8-10.8) K/uL RBC 3.40 L (4.7-6.1) M/uL Hgb 9.4 L (14.0-18.0) g/dL Hct 28.1 L (42-52) % MCV 82.6 (80-100) fL MCH 27.6 (25-34) pg MCHC 33.5 (32-36) g/dL RDW Std Deviation 49.1 H (36.4-46.3) fL RDW Coeff of Shaylee 16.3 H (11.5-14.5) % Plt Count 271 (130-400) K/uL MPV 10.0 (7.4-10.4) fL Immature Gran % (Auto) % Neut % (Auto) % Lymph % (Auto) % [place] % (Auto) % Eos % (Auto) % Baso % (Auto) % Immature Gran # (Auto) (0.00-0.02) K/uL Neut # (Auto) (1.4-6.5) K/uL Lymph # (Auto) (1.2-3.4) K/uL [place] # (Auto) (0.11-0.59) K/uL Eos # (Auto) (0-0.5) K/uL Baso # (Auto) (0-0.2) K/uL Spherocytes Ovalocytes PT (9.0-12.0) Seconds INR (0.9-1.1) APTT (21.0-31.0) Seconds PTT Ratio Sodium 139 (136-145) mmol/L Potassium 4.9 (3.5-5.1) mmol/L Chloride 109 H (98-107) mmol/L Carbon Dioxide 23 (21-32) mmol/L Anion Gap 7.0 (3-11) BUN 70 H (7-18) mg/dl Creatinine 4.69 H* D (0.6-1.4) mg/dl Est Cr Clr Drug Dosing 15.7 ml/min Est GFR ( Amer) 13.8 Est GFR (Non-Af Amer) 11.9 BUN/Creatinine Ratio 14.9 (10-20) Glucose 108 H (70-99) mg/dl POC Glucose (70-99) Calcium 8.3 L (8.5-10.1) mg/dl Phosphorus (2.5-4.9) mg/dl Magnesium (1.8-2.4) mg/dl Total Bilirubin (0.2-1) mg/dl AST (15-37) U/L ALT (12-78) U/L Alkaline Phosphatase (45-117) U/L Troponin I (0-0.045) ng/ml NT-Pro-B Natriuret Pep (0-900) pg/ml Total Protein (6.4-8.2) gm/dl Albumin (3.4-5.0) gm/dl Globulin (2.5-4.0) gm/dl Albumin/Globulin Ratio (0.9-2) Procalcitonin (0-0.5) ng/ml TSH (0.300-4.500) uIu/ml Free T4 (0.8-1.6) ng/dl Urine Color Urine Appearance (Clear) Urine pH (4.5-7.5) Ur Specific [place] (1.000-1.030) Urine Protein (Negative) Urine Glucose (UA) (Negative) Urine Ketones (Negative) Urine Blood (Negative) Urine Nitrite (Negative) Urine Bilirubin (Negative) Urine Urobilinogen (Negative) Ur Leukocyte Esterase (Negative) Urine WBC (Auto) (0-5) /hpf Urine RBC (Auto) (0-4) /hpf U Hyaline Cast (Auto) (0-5) /lpf U Epithel Cells (Auto) (0-5) /lpf Urine Bacteria (Auto) (Negative) Ur Random Creatinine 27.4 mg/dl U Random Total Protein 180.5 H (0-11.9) mg/dl Protein/Creatinin Ratio 6.6 H (0-0.2) Blood Type Blood Type Recheck Antibody Screen Crossmatch 03/18/18 03/18/18 Range/Units 07:00 11:27 WBC (4.8-10.8) K/uL RBC (4.7-6.1) M/uL Hgb (14.0-18.0) g/dL Hct (42-52) % MCV (80-100) fL MCH (25-34) pg MCHC (32-36) g/dL RDW Std Deviation (36.4-46.3) fL RDW Coeff of Shaylee (11.5-14.5) % Plt Count (130-400) K/uL MPV (7.4-10.4) fL Immature Gran % (Auto) % Neut % (Auto) % Lymph % (Auto) % [place] % (Auto) % Eos % (Auto) % Baso % (Auto) % Immature Gran # (Auto) (0.00-0.02) K/uL Neut # (Auto) (1.4-6.5) K/uL Lymph # (Auto) (1.2-3.4) K/uL [place] # (Auto) (0.11-0.59) K/uL Eos # (Auto) (0-0.5) K/uL Baso # (Auto) (0-0.2) K/uL Spherocytes Ovalocytes PT (9.0-12.0) Seconds INR (0.9-1.1) APTT (21.0-31.0) Seconds PTT Ratio Sodium (136-145) mmol/L Potassium (3.5-5.1) mmol/L Chloride (98-107) mmol/L Carbon Dioxide (21-32) mmol/L Anion Gap (3-11) BUN (7-18) mg/dl Creatinine (0.6-1.4) mg/dl Est Cr Clr Drug Dosing ml/min Est GFR ( Amer) Est GFR (Non-Af Amer) BUN/Creatinine Ratio (10-20) Glucose (70-99) mg/dl POC Glucose 112 H 167 H (70-99) Calcium (8.5-10.1) mg/dl Phosphorus (2.5-4.9) mg/dl Magnesium (1.8-2.4) mg/dl Total Bilirubin (0.2-1) mg/dl AST (15-37) U/L ALT (12-78) U/L Alkaline Phosphatase (45-117) U/L Troponin I (0-0.045) ng/ml NT-Pro-B Natriuret Pep (0-900) pg/ml Total Protein (6.4-8.2) gm/dl Albumin (3.4-5.0) gm/dl Globulin (2.5-4.0) gm/dl Albumin/Globulin Ratio (0.9-2) Procalcitonin (0-0.5) ng/ml TSH (0.300-4.500) uIu/ml Free T4 (0.8-1.6) ng/dl Urine Color Urine Appearance (Clear) Urine pH (4.5-7.5) Ur Specific [place] (1.000-1.030) Urine Protein (Negative) Urine Glucose (UA) (Negative) Urine Ketones (Negative) Urine Blood (Negative) Urine Nitrite (Negative) Urine Bilirubin (Negative) Urine Urobilinogen (Negative) Ur Leukocyte Esterase (Negative) Urine WBC (Auto) (0-5) /hpf Urine RBC (Auto) (0-4) /hpf U Hyaline Cast (Auto) (0-5) /lpf U Epithel Cells (Auto) (0-5) /lpf Urine Bacteria (Auto) (Negative) Ur Random Creatinine mg/dl U Random Total Protein (0-11.9) mg/dl Protein/Creatinin Ratio (0-0.2) Blood Type Blood Type Recheck Antibody Screen Crossmatch Imaging Data Attestation: I personally reviewed and interpreted this imaging study as follows : Radiologist's Impression: XR chest 1V portable CLINICAL HISTORY: Pt c/o SOB dyspnea COMPARISON STUDY: 03/28/2012 FINDINGS: Small parenchymal infiltrate right base. Minimal atelectasis left base. Lungs otherwise appear clear. IMPRESSION: Small parenchymal infiltrate right base. Mild cardiomegaly. The above report was generated using voice recognition software. It may contain grammatical, syntax or spelling errors. Electronically signed by: Elliot Mueller M.D. 03/16/2018 6:14 PM ECG Data Attestation: I personally reviewed and interpreted this ECG as follows: Indication: other (anemia) Rate (beats per minute): 70 Rhythm: normal sinus Findings: no ST depression, no ST elevation and no acute ischemic change Blood Pressure Blood Pressure Findings: Elevated blood pressure Blood Pressure Disposition: further management by hospitalist MDM Narrative This is a 67-year-old male who presents emergency department after he was sent in over concerns about his lab work. I am concerned that the patient's hemoglobin has been steadily dropping since at least November. On rectal examination the patient is heme positive. Based on this and the fact that the patient's hemoglobin is only 8.9 and do feel he should be admitted to the hospital. I am also concerned and expressed my concern over the patient's kidney function to the patient as well as his . They are concerned that the patient is having cellulitis bilaterally to his extremities. Patient refused an ultrasound of the extremities. I did start him on antibiotics here in the emergency department. He was started on a Protonix bolus and drip. I did discuss the case with the hospitalist service who agreed to admit the patient. Impression & Plan GI bleed Discharge Plan Visit Data *Final* Discharge Date/Time: 03/16/18 21:23 Chief Complaint: Referred by Doctor Stated Complaint: REFERRED BY ED Provider: Neto Camacho Discharge Problem: GI bleed Patient Disposition: Admitted As Inpatient Discharge Instructions Interventions: ED Discharge Assessment Last Done: 03/16/18 21:23 The scribe's documentation has been prepared under my direction and personally reviewed by me in its entirety. I confirm that the note above accurately reflects all work, treatment, procedures, and medical decision making performed by me.
== END 2018-03-18 15:14 | disposition home or self-care (01) | DRG 291 ==
LOC: ED 16:11 → 2N 19:35

== ENCOUNTER 2019-06-12 13:17 | Inpatient (IN) ==
--- NOTE | 2019-06-12 14:02 | XRay Report ---
XR chest 1V portable CLINICAL HISTORY: weakness COMPARISON STUDY: 06/09/2019 FINDINGS: The heart is mildly enlarged. There is no failure. There is no focal pulmonary consolidatio n. There is mild left inferior hilar prominence, possibly representing a vascular summation. A short- term follow-up PA and lateral study is recommended. There are no pleural effusions.[There is an azygo s fissure. There are carotid calcifications. IMPRESSION: 1. Stable cardiomegaly 2. No evidence of focal pulmonary consolidation 3. Mild left hilar prominence, likely resenting a vascular summation. A short-term follow-up PA and l ateral study is recommended. ACT 112: Negative or not required by law. Electronically signed by: Sumeet Cid M.D. 06/12/2019 2:01 PM
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
[2019-06-12 14:25] LABS: Hematocrit (blood only) 18.8 % (42-52); Hemoglobin 6.2 g/dL (14.0-18.0); Mean Corpuscular Hemoglobin 26.4 pg (25-34); Mean Platelet Volume 10.2 fL (7.4-10.4); Platelet Count 336 K/uL (130-400); RDW Coefficient of Variation 17.8 % (11.5-14.5); RDW Standard Deviation 52.1 fL (36.4-46.3); Red Blood Count 2.35 M/uL (4.7-6.1); White Blood Count 10.71 K/uL (4.8-10.8)
[2019-06-12] MEDS ORDERED: SODIUM CHLORIDE 0.9% 250 ML IV PRN (14:29)
[2019-06-12] MEDS ORDERED: MoRPHine SULFATE 2 MG/ML CARP IV STA (14:29)
[2019-06-12 14:32] LABS: INR 1.1 (0.9-1.1); Prothrombin Time 11.8 Seconds (9.0-12.0)
[2019-06-12 14:40] LABS: Basophils # (auto) 0.02 K/uL (0-0.2); Basophils % (auto) 0.2 %; Eosinophils # (auto) 0.03 K/uL (0-0.5); Eosinophils % (auto) 0.3 %; Immature Granulocytes # (auto) 0.03 K/uL (0.00-0.02); Immature Granulocytes % (auto) 0.3 %; Lymphocytes # (auto) 0.93 K/uL (1.2-3.4); Lymphocytes % (auto) 8.7 %; Monocytes # (auto) 0.62 K/uL (0.11-0.59); Monocytes % (auto) 5.8 %; Neutrophils # (auto) 9.08 K/uL (1.4-6.5); Neutrophils % (auto) 84.7 %; RBC Morphology Unremarkable
[2019-06-12 14:49] LABS: Albumin Globulin Ratio 0.8 (0.9-2); Albumin Level 2.9 gm/dl (3.4-5.0); BUN Creatinine Ratio 15.1 (10-20); Bilirubin,Total 0.3 mg/dl (0.2-1); Calcium 8.4 mg/dl (8.5-10.1); Creatinine Clr Calc Pharmacy 6.6 ml/min; Est GFR (African American) 5.8; Globulin 3.8 gm/dl (2.5-4.0); Magnesium 2.3 mg/dl (1.8-2.4); Potassium 5.4 mmol/L (3.5-5.1); Thyroid Stimulating Hormone 0.946 uIu/ml (0.300-4.500); Total Protein 6.7 gm/dl (6.4-8.2)
[2019-06-12] MEDS ORDERED: NICOTINE 21 MG/24 HR TDSY TD SCH (15:00)
[2019-06-12] MEDS ORDERED: ONDANSETRON INJ 2 MG/ML 2 ML VIAL ONE (15:03)
--- NOTE | 2019-06-12 16:25 | Electrocardiogram Report ---
Test Reason : Blood Pressure : / mmHG Vent. Rate : 057 BPM Atrial Rate : 057 BPM P-R Int : 170 ms QRS Dur : 078 ms QT Int : 464 ms P-R-T Axes : 021 056 065 degrees QTc Int : 451 ms Poor data quality, interpretation may be adversely affected Sinus bradycardia with 1st degree A-V block Possible Old Anterior infarct (cited on or before 09-JUN-2019) Nondiagnostic inferior Q waves Abnormal ECG When compared with ECG of 09-JUN-2019 14:17, No significant change Confirmed by Fred Martínez ([id number]) on 06/12/2019 4:24:44 PM Referred By: ED Confirmed By:Fred Martínez
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
[2019-06-12] MEDS: HYDROmorphone INJ 0.5 MG/0.5 ML SYR IV PRN ×2 (17:43→19:48)
[2019-06-12] MEDS ORDERED: ONDANSETRON INJ 2 MG/ML 2 ML VIAL IV PRN (18:44)
[2019-06-12] MEDS ORDERED: CARBOHYDRATES FOR HYPOGLYCEMIA PO PRN (18:44)
[2019-06-12] MEDS ORDERED: DEXTROSE 50% 50 ML SYRINGE IV PRN (18:44)
[2019-06-12] MEDS ORDERED: allopurinoL 300 MG TAB PO PRN (18:44)
[2019-06-12] MEDS ORDERED: GLUCOSE 10 TABS/TUBE PO PRN (18:44)
[2019-06-12] MEDS ORDERED: GLUCOSE 40% GEL 15 GM TUBE PO PRN (18:44)
[2019-06-12] MEDS ORDERED: HYDROCORTISONE 2.5% CR 30 GM TUBE EXT PRN (18:44)
[2019-06-12] MEDS ORDERED: ACETAMINOPHEN 325 MG TAB PO PRN (18:44)
[2019-06-12] MEDS ORDERED: GLUCAGON FOR INJ 1 MG VIAL SQ PRN (18:44)
--- NOTE | 2019-06-12 19:47 | XRay Report ---
XR lumbar spine 2-3V CLINICAL HISTORY: Low back pain with radiation into B/L LE pain COMPARISON STUDY: 07/11/2013 FINDINGS: Moderate degenerative disc change. Vertebral body stature is normal. No evidence for compre ssion deformity. No significant subluxation. IMPRESSION: Moderate degenerative change. No acute process. ACT 112: Negative or not required by law. The above report was generated using voice recognition software. It may contain grammatical, syntax or spelling errors. Electronically signed by: Elliot Mueller M.D. 06/12/2019 7:46 PM
[2019-06-12] MEDS: INSULIN GLARGINE SOLOSTAR 100 UNITS/ML 3 ML PEN SC SCH (20:27)
[2019-06-12] MEDS: METOPROLOL TARTRATE 50 MG TAB PO SCH (20:28)
[2019-06-12] MEDS: DOXYCYCLINE HYCLATE 100 MG CAP PO SCH (20:30)
[2019-06-12] MEDS ORDERED: INSULIN ASPART 100 UNITS/ML 3 ML PEN SC SCH (21:00)
[2019-06-12] MEDS ORDERED: CYCLOBENZAPRINE HCL 10 MG TAB PO STA (21:10)
[2019-06-12] MEDS: PANTOprazole 40 MG in SYRINGE 0 ML IV SCH (21:41)
[2019-06-12] MEDS: HydrALAZINE TAB 50 MG TAB PO SCH (21:41)
[2019-06-12] MEDS ORDERED: Nursing to Pharmacy Communication ONE (23:10)
[2019-06-13 04:42] LABS: Hematocrit (blood only) 20.2 % (42-52); Hemoglobin 6.7 g/dL (14.0-18.0); Mean Corpuscular Hemoglobin 26.2 pg (25-34); Mean Corpuscular Hgb Conc 33.2 g/dL (32-36); Mean Corpuscular Volume 78.9 fL (80-100); Mean Platelet Volume 9.6 fL (7.4-10.4); Platelet Count 286 K/uL (130-400); RDW Coefficient of Variation 17.2 % (11.5-14.5); RDW Standard Deviation 49.7 fL (36.4-46.3); Red Blood Count 2.56 M/uL (4.7-6.1); White Blood Count 7.92 K/uL (4.8-10.8)
[2019-06-13 05:00] LABS: BUN Creatinine Ratio 15.2 (10-20); Calcium 8.1 mg/dl (8.5-10.1); Creatinine Clr Calc Pharmacy 6.7 ml/min; Est GFR (African American) 5.9; Est GFR (Non-African American) 5.1; Potassium 4.7 mmol/L (3.5-5.1)
[2019-06-13] MEDS ORDERED: SODIUM CHLORIDE 0.9% 250 ML IV PRN (05:08)
[2019-06-13] MEDS: HydrALAZINE TAB 50 MG TAB PO SCH ×3 (05:34→21:22)
[2019-06-13] MEDS ORDERED: INSULIN ASPART 100 UNITS/ML 3 ML PEN SC SCH (06:00)
[2019-06-13] MEDS ORDERED: ACETAMINOPHEN 325 MG TAB PO ONE (06:00)
[2019-06-13] MEDS: INSULIN GLARGINE SOLOSTAR 100 UNITS/ML 3 ML PEN SC SCH ×2 (08:15→21:24)
[2019-06-13] MEDS: NICOTINE 21 MG/24 HR TDSY TD SCH (08:18)
[2019-06-13] MEDS: PANTOprazole 40 MG in SYRINGE 0 ML IV SCH ×2 (08:18→21:24)
[2019-06-13] MEDS: TAMSULOSIN HCL 0.4 MG CAP PO SCH (08:18)
[2019-06-13] MEDS: methIMAzole 5 MG TABLET PO SCH (08:18)
[2019-06-13] MEDS: METOPROLOL TARTRATE 100 MG TAB PO SCH (08:19)
[2019-06-13] MEDS: DOXYCYCLINE HYCLATE 100 MG CAP PO SCH ×2 (08:19→21:23)
[2019-06-13] MEDS: AMLODIPINE BESYLATE 5 MG TAB PO SCH (08:19)
[2019-06-13] MEDS: CHOLECALCIFEROL 1,000 UNITS 25 MCG TAB PO SCH (08:19)
[2019-06-13 09:03] LABS: Hepatitis B Surface Ab Quant < 3.10 mIU/mL (>or=10mIU/mL Immune); Hepatitis B Surface Antibody Non-Immune
[2019-06-13 09:14] LABS: Hepatitis B Surface Antigen Neg (Neg)
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
[2019-06-13] MEDS ORDERED: CEFAZOLIN 1000MG 1,000 MG/7.5 ML SYR IV ONE (10:00)
--- NOTE | 2019-06-13 10:29 | Pre Anesthesia Assessment ---
Date of Service June 13, 2019 Pre Sedation Assessment Vital Signs Temp Pulse Pulse Resp BP BP Pulse Ox 06/13/19 10:00 37.1 C 63 16 138/64 95 06/13/19 09:25 64 18 124/63 06/13/19 09:10 36.6 C 65 16 135/71 06/13/19 09:00 64 10 L 06/13/19 08:55 65 23 141/68 H 94 06/13/19 08:40 36.6 C 68 13 136/65 06/13/19 08:25 69 12 137/63 06/13/19 08:11 68 16 137/63 94 06/13/19 08:10 67 17 137/63 94 06/13/19 08:00 63 14 91 06/13/19 07:55 64 16 134/59 L 92 06/13/19 07:40 36.8 C 63 14 124/56 L 90 06/13/19 07:25 65 13 125/54 L 91 06/13/19 07:11 71 14 126/58 L 96 06/13/19 07:00 64 16 93 06/13/19 06:55 70 15 114/48 L 95 06/13/19 06:43 36.8 C 73 16 114/48 L 94 06/13/19 06:40 66 16 110/53 L 93 06/13/19 06:28 36.7 C 65 19 126/65 94 06/13/19 06:25 64 16 126/65 92 06/13/19 06:13 36.7 C 68 16 133/64 91 06/13/19 06:10 66 15 133/64 93 06/13/19 06:00 70 10 L 94 06/13/19 05:58 36.7 C 68 14 135/64 92 06/13/19 05:55 68 14 135/64 93 06/13/19 05:43 36.7 C 71 17 123/74 95 06/13/19 05:40 70 14 123/74 95 06/13/19 05:00 70 13 06/13/19 04:09 71 18 137/63 06/13/19 04:00 36.7 C 67 70 12 137/63 95 06/13/19 03:00 64 17 06/13/19 02:00 67 14 06/13/19 01:00 64 14 06/13/19 00:00 36.6 C 66 68 15 117/50 L 96 06/12/19 23:49 68 16 117/50 L 06/12/19 23:00 66 14 06/12/19 22:00 65 18 06/12/19 21:00 68 15 06/12/19 20:00 68 13 06/12/19 19:56 36.5 C 70 14 111/53 L 99 06/12/19 19:51 69 15 111/53 L 06/12/19 19:00 69 14 99 06/12/19 18:48 66 21 121/54 L 99 06/12/19 18:31 67 18 114/76 06/12/19 18:01 62 12 98 06/12/19 18:00 61 12 128/67 96 06/12/19 17:56 36.6 C 60 16 128/67 96 06/12/19 17:31 62 14 97 06/12/19 17:30 59 L 13 112/46 L 99 06/12/19 17:00 58 L 17 104/59 L 98 06/12/19 16:56 36.4 C L 59 L 20 104/59 L 99 06/12/19 16:31 60 12 111/47 L 98 06/12/19 16:30 52 L 15 98 06/12/19 16:26 36.8 C 59 L 16 111/47 L 98 06/12/19 16:11 36.7 C 59 L 20 116/50 L 95 06/12/19 16:01 61 17 98 06/12/19 16:00 61 10 L 116/50 L 98 06/12/19 15:53 36.4 C L 59 L 12 98/66 L 98 06/12/19 15:31 56 L 14 99 06/12/19 15:30 58 L 17 98/66 L 96 06/12/19 15:01 58 L 14 104/76 99 06/12/19 15:00 59 L 18 97 06/12/19 14:44 60 12 117/58 L 99 06/12/19 14:30 52 L 10 L 99 06/12/19 14:00 62 17 99 06/12/19 13:59 61 12 99 06/12/19 13:58 36.5 C 16 97 06/12/19 13:52 96 05/04/20 13:19 57 L 20 102/47 L 98 Cardiovascular RRR, no murmur, no edema Respiratory normal respiratory effort, lungs clear to auscultation Pre-Sedation Airway Assessment Smoking Status: Current every day smoker Hx Sleep Apnea: No Short, Thick Neck: No Thyromental Distance: > or= 3.5 Finger Breadths Oral Cavity: + WNL Mallampati Class: II ASA: ASA4 NPO Status Date of Last Intake of Fluids: 06/12/19 Time of Last Intake of Fluids: 21:00 Date of Last Intake of Solid Food: 06/12/19 Time of Last Intake of Solid Foods: 21:00 Procedure Planning Contraindications for Sedation: none Current Medications Reviewed: Yes Notes The planned sedation has been discussed with the patient. Informed Consent was obtained. I have identified the patient, determined the appropriateness of sedation and have assessed the patient immediately prior to the procedure. All medicine(s) and interventions are by my order.
[2019-06-13] MEDS ORDERED: LIDOCAINE HCL 1% 20 ML VIAL ONE (10:33)
[2019-06-13] MEDS ORDERED: HEPARIN SOD (PORCINE) 5,000 UNITS/ML VIAL ONE (10:33)
[2019-06-13] MEDS ORDERED: fentaNYL citrate 100 MCG/2 ML VIAL ONE (10:37)
[2019-06-13] MEDS ORDERED: MIDAZOLAM HCL 1 MG/ML 2ML VIAL ONE (10:38)
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
--- NOTE | 2019-06-13 11:04 | Post Anesthesia Assessment ---
Date of Service June 13, 2019 Post Sedation Assessment Vital Signs Temp Pulse Pulse Resp BP BP Pulse Ox 06/13/19 11:03 60 15 119/58 L 95 06/13/19 10:58 60 14 119/62 99 06/13/19 10:56 60 14 119/62 99 06/13/19 10:51 62 16 125/61 100 06/13/19 10:46 65 17 138/68 100 06/13/19 10:43 66 17 135/68 99 06/13/19 10:00 37.1 C 63 16 138/64 95 06/13/19 09:25 64 18 124/63 06/13/19 09:10 36.6 C 65 16 135/71 06/13/19 09:00 64 10 L 06/13/19 08:55 65 23 141/68 H 94 06/13/19 08:40 36.6 C 68 13 136/65 06/13/19 08:25 69 12 137/63 06/13/19 08:11 68 16 137/63 94 06/13/19 08:10 67 17 137/63 94 06/13/19 08:00 63 14 91 06/13/19 07:55 64 16 134/59 L 92 06/13/19 07:40 36.8 C 63 14 124/56 L 90 06/13/19 07:25 65 13 125/54 L 91 06/13/19 07:11 71 14 126/58 L 96 06/13/19 07:00 64 16 93 06/13/19 06:55 70 15 114/48 L 95 06/13/19 06:43 36.8 C 73 16 114/48 L 94 06/13/19 06:40 66 16 110/53 L 93 06/13/19 06:28 36.7 C 65 19 126/65 94 06/13/19 06:25 64 16 126/65 92 06/13/19 06:13 36.7 C 68 16 133/64 91 06/13/19 06:10 66 15 133/64 93 06/13/19 06:00 70 10 L 94 06/13/19 05:58 36.7 C 68 14 135/64 92 06/13/19 05:55 68 14 135/64 93 06/13/19 05:43 36.7 C 71 17 123/74 95 06/13/19 05:40 70 14 123/74 95 06/13/19 05:00 70 13 06/13/19 04:09 71 18 137/63 06/13/19 04:00 36.7 C 67 70 12 137/63 95 06/13/19 03:00 64 17 06/13/19 02:00 67 14 06/13/19 01:00 64 14 06/13/19 00:00 36.6 C 66 68 15 117/50 L 96 06/12/19 23:49 68 16 117/50 L 06/12/19 23:00 66 14 06/12/19 22:00 65 18 06/12/19 21:00 68 15 06/12/19 20:00 68 13 06/12/19 19:56 36.5 C 70 14 111/53 L 99 06/12/19 19:51 69 15 111/53 L 06/12/19 19:00 69 14 99 06/12/19 18:48 66 21 121/54 L 99 06/12/19 18:31 67 18 114/76 06/12/19 18:01 62 12 98 06/12/19 18:00 61 12 128/67 96 06/12/19 17:56 36.6 C 60 16 128/67 96 06/12/19 17:31 62 14 97 06/12/19 17:30 59 L 13 112/46 L 99 06/12/19 17:00 58 L 17 104/59 L 98 06/12/19 16:56 36.4 C L 59 L 20 104/59 L 99 06/12/19 16:31 60 12 111/47 L 98 06/12/19 16:30 52 L 15 98 06/12/19 16:26 36.8 C 59 L 16 111/47 L 98 06/12/19 16:11 36.7 C 59 L 20 116/50 L 95 06/12/19 16:01 61 17 98 06/12/19 16:00 61 10 L 116/50 L 98 06/12/19 15:53 36.4 C L 59 L 12 98/66 L 98 06/12/19 15:31 56 L 14 99 06/12/19 15:30 58 L 17 98/66 L 96 06/12/19 15:01 58 L 14 104/76 99 05/04/20 15:00 59 L 18 97 06/12/19 14:44 60 12 117/58 L 99 06/12/19 14:30 52 L 10 L 99 06/12/19 14:00 62 17 99 06/12/19 13:59 61 12 99 06/12/19 13:58 36.5 C 16 97 06/12/19 13:52 96 06/12/19 13:19 57 L 20 102/47 L 98 Recovery Score Activity: Moves 4 extremities Respiration: Deep Breath/Cough Circulation: +/-20% PreAnes Value Consciousness: Fully Awake Oxygen Saturation: > 92% On Room Air Post Anesthesia Score: 10 Discharge Sedation Level of Care: Fast Track Phase II Post Sedation Plan On clinical assessment, the patient appears to have tolerated the sedation without complications. Patient is recovering as anticipated. Patient will continue to be monitored by nursing and may be discharged when sedation discharge criteria are met per below protocol. Upon Completions of procedure up to 15 minutes continue every 5 minute vital signs and the P.A.R. score; then discharge to a Phase I or Fast Track to Phase II per the following guidelines: * Discharge Patient to appropriate Phase II area if PAR is 8 or greater or return to pre- procedure baseline. The post - procedure orders will be as directed. * If PAR score is less than 8 or not return to pre-procedure baseline then patient will follow Phase I monitoring till PAR is reached for Phase II. The Phase I may be done in procedure room or may call to secure a Phase I area. * If naloxone or flumazenil are used for reversal, hold in Phase I for continued monitoring from when last reversal dose was given for a minimum of 60 minutes or longer pending the nurse and/or physician discretion of patient condition before discharge to Phase II. Please call the Sedation Physician to re-evaluate and complete post-note for discharge to Phase II area. Do NOT discharge from procedure sedation or Phase 1 until post- sedation evaluation note is complete by procedure /sedation MD Sedation Discharge Instructions to be given to the patient at discharge to home.
[2019-06-13] MEDS ORDERED: Nursing to Pharmacy Communication ONE (11:20)
[2019-06-13] MEDS ORDERED: SODIUM CHLORIDE 0.9% 1000ML 1,000 ML IV PRN (11:48)
[2019-06-13] MEDS: INSULIN ASPART 100 UNITS/ML 3 ML PEN SC SCH ×3 (12:04→21:20)
--- NOTE | 2019-06-13 12:13 | Hospitalist Progress Note ---
Date of Service June 13, 2019 Assessment & Plan (1) ESRD (end stage renal disease): Status post insertion of permacatheter through right internal jugular approach to initiate hemodialysis So far he has been very noncompliant Appreciate vascular surgery input and recommendation Appreciate nephrology input and recommendation Will start dialysis from today Likely will need to stay for a few dialysis session before can be discharged (2) ESRD needing dialysis: As above (3) Acute uremia: Has had uremic symptoms mostly nausea and vomiting Expected to improve following dialysis (4) Anemia: Secondary to chronic kidney disease Doubt any acute GI bleed given history of nausea vomiting and questionable blood tinged vomit Received 1 unit of blood transfusion on 06/12/2019 Hemoglobin has not changed Will give second unit of blood transfusion (5) Hyperkalemia: Patient with ESRD, chronic anemia secondary to renal disease and h yperkalemia who has been previously resistant to dialysis. He did agree to dialysis at this time, so he was admitted for workup and access. Vascular surgery and Nephrology were both consulted. This patient was discussed with Dr. Brown in Nephrology- recommended holding Lasix for now due to hypotension on presentation. Patient has had very elevated potassium outpatient- up to 7.4, but currently 5.4. Anemia is slightly worse with Hgb down to 6.2. Patient is symptomatic today with weakness. Cross match completed in ED- patient was transfused with 1 unit of blood. Renal/clear liquid diet. NPO after midnight. Potassium level is normal (6) Hypotension: Hold Lasix. Blood was transfused in the ED. Will continue home medications in the AM. (7) Diabetes: Last A1C last month 5.6. Diabetes well controlled as an outpatient on Tradjenta. Will change to insulin while inpatient. (8) Hematemesis: (9) Nausea & vomiting: Feel that these symptoms are likely related to uremia. Because of hematemesis, continue clear liquid diet for now. Start Pantoprazole 40 mg IV BID No more nausea and or vomiting We will check a stool for occult blood (10) Cellulitis of right lower extremity: Improving. Continue Doxy 100 mg BID Continue hydrocortisone PRN itching. Monitor (11) Tobacco abuse: Nicotine patch ordered. (12) Hypocalcemia: (13) Low back pain radiating to both legs: Check L spine X-Ray due to acute pain with radiation down both extremities. No improvement with morphine in the ED. Will give IV Dilaudid PRN for severe pa in Did not show any significant abnormality in LS-spine (14) DVT prophylaxis: SCDs for now. May consider transition to heparin in the AM if hematemesis has subsided. Admission and Anticipated Discharge Date Admission Date: June 12, 2019 Subjective 06/13/2019 The patient was seen and examined in telemetry unit Complaints of generalized weakness Denies any chest pain, palpitation, any abdominal pain or any vomiting No fever and/or chills Review of Systems Review of Systems: All systems reviewed and are unremarkable except as noted below Constitutional: + malaise and + weakness Cardiovascular: no chest pain Gastrointestinal: + nausea; no abdominal pain and no vomiting Musculoskeletal: No acute arthritis involving any joints Physical Exam Physical Exam: Lying in bed comfortably Constitutional: well developed, well nourished and + ill appearing; no acute distress Eyes: PERRL, conjunctivae normal, anicteric sclerae ENMT: external ear and nose normal, oropharynx normal Neck: trachea midline, no thyromegaly Respiratory: no respiratory distress Auscultation: lungs clear to auscultation bilaterally Cardiovascular: Rate/Rhythm: regular rate and regular rhythm Heart Sounds: no murmur Extremities: + edema (Bilateral lower extremity edema, right more than left with evidence of cellulitis) Gastrointestinal (Abdomen): Inspection/Auscultation: abdomen normal to inspection and normal bowel sounds Percussion/Palpation: abdomen soft; abdomen nontender Musculoskeletal: No acute arthritis in any joints Lymphatic: no cervical or axillary lymphadenopathy Results & Data Results & Data ([facility]) Vital Signs (Past 12 Hours) Vital Signs Temp Pulse Pulse Resp BP BP Pulse Ox 06/13/19 11:55 36.9 C 60 17 110/49 L 96 06/13/19 11:45 62 29 H 95 06/13/19 11:40 64 27 H 120/67 95 06/13/19 11:30 58 L 20 95 06/13/19 11:25 61 12 111/60 99 06/13/19 11:18 59 L 16 115/54 L 95 06/13/19 11:16 60 13 06/13/19 11:03 60 15 119/58 L 95 06/13/19 10:58 60 14 119/62 99 06/13/19 10:56 60 14 119/62 99 06/13/19 10:51 62 16 125/61 100 05 10:46 65 17 138/68 100 06/13/19 10:43 66 17 135/68 99 06/13/19 10:00 37.1 C 63 16 138/64 95 05 09:45 62 16 06/13/19 09:40 63 13 132/59 L 06/13/19 09:30 65 13 06/13/19 09:25 64 18 124/63 06/13/19 09:10 36.6 C 65 16 135/71 06/13/19 09:00 64 10 L 06/13/19 08:55 65 23 141/68 H 94 06/13/19 08:40 36.6 C 68 13 136/65 05 08:25 69 12 137/63 05 08:11 68 16 137/63 94 06/13/19 08:10 67 17 137/63 94 06/13/19 08:00 63 14 91 05 07:55 64 16 134/59 L 92 06/13/19 07:40 36.8 C 63 14 124/56 L 90 06/13/19 07:25 65 13 125/54 L 91 05 07:11 71 14 126/58 L 96 06/13/19 07:00 64 16 93 05 06:55 70 15 114/48 L 95 06/13/19 06:43 36.8 C 73 16 114/48 L 94 050520 06:40 66 16 110/53 L 93 05 06:28 36.7 C 65 19 126/65 94 05 06:25 64 16 126/65 92 05 06:13 36.7 C 68 16 133/64 91 050520 06:10 66 15 133/64 93 0505 06:00 70 10 L 94 0505 05:58 36.7 C 68 14 135/64 92 0505 05:55 68 14 135/64 93 05 05:43 36.7 C 71 17 123/74 95 0520 05:40 70 14 123/74 95 05 05:00 70 13 06/13/19 04:09 71 18 137/63 05/05/20 04:00 36.7 C 67 70 12 137/63 95 06/13/19 03:00 64 17 06/13/19 02:00 67 14 06/13/19 01:00 64 14 Laboratory Results Short CBC 06/12/19 06/13/19 Range/Units 14:00 04:06 WBC 10.71 7.92 (4.8-10.8) K/uL Hgb 6.2 L* 6.7 L* (14.0-18.0) g/dL Hct 18.8 L* 20.2 L* (42-52) % Plt Count 336 286 (130-400) K/uL BMP 06/12/19 06/13/19 14:00 04:06 Sodium 140 140 Potassium 5.4 H 4.7 Chloride 110 H 108 H Carbon Dioxide 16 L 18 L BUN 144 H 143 H Creatinine 9.51 H* 9.44 H* Glucose 152 H 78 Calcium 8.4 L 8.1 L Liver Function 06/12/19 Range/Units 14:00 Total Bilirubin 0.3 (0.2-1) mg/dl AST 6 L (15-37) U/L ALT 13 (12-78) U/L Alkaline Phosphatase 81 (45-117) U/L Albumin 2.9 L (3.4-5.0) gm/dl Medications Administered Current Inpatient Medications Acetaminophen (Tylenol) 650 mg PO Q4H PRN PRN Reason: Pain or Fever Stop: 07/12/19 18:43 Amlodipine Besylate (Norvasc) 10 mg PO QAM RAFAELA Stop: 07/13/19 08:59 Last Admin: 06/13/19 08:19 Dose: 10 mg Documented by: Dextrose (Dextrose 50%) 25 - 50 ml IV UD PRN; Protocol PRN Reason: Hypoglycemia Protocol Stop: 07/12/19 18:43 Doxycycline Hyclate (Vibramycin) 100 mg PO BID [facility] Stop: 06/15/19 20:59 Last Admin: 06/13/19 08:19 Dose: 100 mg Documented by: Glucagon (Glucagen) 1 mg SQ UD PRN; Protocol PRN Reason: Hypoglycemia Protocol Stop: 07/12/19 18:43 Glucose (Dex4 Glucose) 4 - 8 tabs PO UD PRN; Protocol PRN Reason: Hypoglycemia Protocol Stop: 07/12/19 18:43 Glucose (Glucose 40%) 15 - 30 gm PO UD PRN; Protocol PRN Reason: Hypoglycemia Protocol Stop: 07/12/19 18:43 Hydralazine HCl (Apresoline) 100 mg PO Q8H [facility] Stop: 07/12/19 21:59 Last Admin: 06/13/19 05:34 Dose: 100 mg Documented by: Hydrocortisone (Hydrocortisone 2.5%) 1 appln EXT BID PRN PRN Reason: Itching Stop: 07/12/19 18:43 Hydromorphone HCl (Dilaudid) 0.5 mg IV Q4 PRN PRN Reason: Severe Pain Stop: 06/26/19 17:00 Last Admin: 06/12/19 19:48 Dose: 0.5 mg Documented by: Pantoprazole Sodium 40 mg/ (Syringe) 10 mls @ 5 mls/min IV BID [facility] Stop: 07/12/19 20:59 Last Admin: 06/13/19 08:18 Dose: 5 mls/min Documented by: Sodium Chloride (Nss) 250 mls @ 15 mls/hr IV .[id number] PRN PRN Reason: For Transfusion Stop: 06/13/19 15:08 Sodium Chloride (Nss 1000ml) 1,000 mls @ 0 mls/hr IV .Q0M PRN PRN Reason: For Hemodialysis Use ONLY Stop: 06/13/19 17:47 Insulin Aspart (Novolog Flexpen) 0 units SC ACHS [facility] Stop: 07/13/19 11:29 Last Admin: 06/13/19 12:04 Dose: 2 units Documented by: Insulin Glargine (Lantus Solostar Pen) 8 units SC BID [facility] Stop: 07/12/19 20:59 Last Admin: 06/13/19 08:15 Dose: Not Given Documented by: Methimazole (Tapazole) 30 mg PO QAM [facility] Stop: 07/13/19 08:59 Last Admin: 06/13/19 08:18 Dose: 30 mg Documented by: Metoprolol Tartrate (Lopressor) 100 mg PO QAM [facility] Stop: 07/13/19 08:59 Last Admin: 06/13/19 08:19 Dose: 100 mg Documented by: Metoprolol Tartrate (Lopressor) 50 mg PO QPM [facility] Stop: 07/12/19 20:59 Last Admin: 06/12/19 20:28 Dose: 50 mg Documented by: Miscellaneous (Remove Nicoderm Patch) 1 ea N/A DAILY@0859 [facility] Stop: 07/13/19 08:58 Last Admin: 06/13/19 08:19 Dose: 1 ea Documented by: Miscellaneous (Carbohydrates For Hypoglycemia) 15 - 30 gm PO UD PRN PRN Reason: Hypoglycemia Protocol Stop: 07/12/19 18:43 Nicotine (Nicoderm Cq) 21 mg TD QAM [facility] Stop: 07/13/19 08:59 Last Admin: 06/13/19 08:18 Dose: 21 mg Documented by: Ondansetron HCl (Zofran) 4 mg IV Q6H PRN PRN Reason: Nausea Stop: 07/12/19 18:43 Last Admin: 06/12/19 20:27 Dose: 4 mg Documented by: Tamsulosin HCl (Flomax) 0.4 mg PO DAILY [facility] Stop: 07/13/19 08:59 Last Admin: 06/13/19 08:18 Dose: 0.4 mg Documented by: Vitamin D (Vitamin D3) 4,000 units PO DAILY [facility] Stop: 07/13/19 08:59 Last Admin: 06/13/19 08:19 Dose: 4,000 units Documented by:
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
[2019-06-13] MEDS: METOPROLOL TARTRATE 50 MG TAB PO SCH (21:23)
[2019-06-14] MEDS: HydrALAZINE TAB 50 MG TAB PO SCH ×2 (05:51→13:56)
[2019-06-14] MEDS: TAMSULOSIN HCL 0.4 MG CAP PO SCH (08:20)
[2019-06-14] MEDS: METOPROLOL TARTRATE 100 MG TAB PO SCH (08:22)
[2019-06-14] MEDS: NICOTINE 21 MG/24 HR TDSY TD SCH (08:23)
[2019-06-14] MEDS: AMLODIPINE BESYLATE 5 MG TAB PO SCH (08:23)
[2019-06-14] MEDS: DOXYCYCLINE HYCLATE 100 MG CAP PO SCH (08:23)
[2019-06-14] MEDS: CHOLECALCIFEROL 1,000 UNITS 25 MCG TAB PO SCH (08:23)
[2019-06-14] MEDS: methIMAzole 5 MG TABLET PO SCH (08:23)
[2019-06-14] MEDS: INSULIN GLARGINE SOLOSTAR 100 UNITS/ML 3 ML PEN SC SCH (08:24)
[2019-06-14] MEDS: INSULIN ASPART 100 UNITS/ML 3 ML PEN SC SCH ×2 (08:26→13:10)
[2019-06-14] MEDS: PANTOprazole 40 MG in SYRINGE 0 ML IV SCH (08:33)
[2019-06-14] MEDS ORDERED: EPOETIN ALFA IV SCH ×2 (09:00→10:00)
--- NOTE | 2019-06-14 10:07 | Progress Notes ---
DATE: SUBJECTIVE: The patient was seen during dialysis. So far he is tolerating it very well. Blood pressure is 138/80 and otherwise appears stable. Dialysis catheter working good. HEENT: Mucous membrane moist. NECK: Supple. No jugular venous distention. CHEST: Bilateral clear to auscultation. CARDIOVASCULAR: S1, S2 regular. ABDOMEN: Soft, nontender. EXTREMITIES: Shows no edema. LABORATORY TESTS: From this morning, hemoglobin is still pending as well as the renal panel. He tolerated dialysis very well yesterday. ASSESSMENT AND PLAN: 1. A 68-year-old male with longstanding diabetes, chronic obstructive pulmonary disease, congestive heart failure as well as chronic kidney disease stage V, who was refusing dialysis, admitted with very abnormal labs, especially issues with potassium and severe anemia and to start dialysis. 2. End-stage renal disease. He did start dialysis yesterday, which was the first dialysis session, which he tolerated very well. Today is the second dialysis session. Will do for 3 hours on a 2K bath and we are not planning to take any fluid off today. No heparin today. He has been accepted for outpatient dialysis at [facility] in [place] starting wednesday. He can be discharged after dialysis today unless we find something very abnormal on his blood work done earlier today. 3. Anemia of ESRD. He is not bleeding anywhere. We will give him first dose of Procrit today 11,000 units. He is already status post 2 units of blood transfusion. He will continue with Procrit and Venofer as per protocol outpatient. Thank you very much. Case was discussed with hospitalist as well as case management associate. DAVID
[2019-06-14 10:09] LABS: Hematocrit (blood only) 23.5 % (42-52); Hemoglobin 7.8 g/dL (14.0-18.0); Mean Corpuscular Hemoglobin 26.7 pg (25-34); Mean Corpuscular Hgb Conc 33.2 g/dL (32-36); Mean Corpuscular Volume 80.5 fL (80-100); Mean Platelet Volume 10.1 fL (7.4-10.4); Platelet Count 263 K/uL (130-400); RDW Coefficient of Variation 17.1 % (11.5-14.5); RDW Standard Deviation 50.6 fL (36.4-46.3); Red Blood Count 2.92 M/uL (4.7-6.1); White Blood Count 8.45 K/uL (4.8-10.8)
[2019-06-14 10:25] LABS: Anisocytosis Present; Basophils # (auto) 0.02 K/uL (0-0.2); Basophils % (auto) 0.2 %; Eosinophils # (auto) 0.08 K/uL (0-0.5); Eosinophils % (auto) 0.9 %; Immature Granulocytes # (auto) 0.03 K/uL (0.00-0.02); Immature Granulocytes % (auto) 0.4 %; Lymphocytes # (auto) 0.87 K/uL (1.2-3.4); Lymphocytes % (auto) 10.3 %; Monocytes # (auto) 0.88 K/uL (0.11-0.59); Monocytes % (auto) 10.4 %; Neutrophils # (auto) 6.57 K/uL (1.4-6.5); Neutrophils % (auto) 77.8 %
[2019-06-14 10:38] LABS: BUN Creatinine Ratio 13.3 (10-20); Creatinine Clr Calc Pharmacy 10.3 ml/min; Est GFR (Non-African American) 8.6; Magnesium 2.2 mg/dl (1.8-2.4); Phosphorus 6.1 mg/dl (2.5-4.9); Potassium 3.9 mmol/L (3.5-5.1)
--- NOTE | 2019-06-14 15:31 | Ultrasound Report ---
RIGHT LOWER EXTREMITY VENOUS DOPPLER CLINICAL HISTORY: leg swelling, r/o dvt COMPARISON STUDY: Bilateral lower extremity venous Doppler ultrasound March 07, 2016. TECHNIQUE: Sonography of the deep venous system of the right lower extremity was performed. Compress ion and augmentation were evaluated. FINDINGS: The right common femoral, superficial femoral and popliteal veins were compressible. Augme ntation was normal. Flow was shown within the deep calf vessels. Note is made of a 6.8 cm complex sub cutaneous fluid collection of the right lower leg. IMPRESSION: 1. No evidence of deep venous thrombus within the right lower extremity. 2. 6.8 cm complex right lower leg fluid collection. A hematoma is favored. An abscess could appear si milar but is considered less likely. ACT 112: Negative or not required by law. Electronically signed by: Jose Hastings M.D. 06/14/2019 3:30 PM
--- NOTE | 2019-06-14 15:38 | Hospitalist Progress Note ---
Date of Service June 14, 2019 Assessment & Plan (1) ESRD (end stage renal disease): Status post insertion of permacatheter through right internal jugular approach to initiate hemodialysis underwent 2 sessions of hemodialysis while admitted, tolerated well accepted for outpatient HD c/o [facility], next HD tomorrow ff up with Nephro as scheduled (2) ESRD needing dialysis: As above (3) Acute uremia: Has had uremic symptoms mostly nausea and vomiting resolved (4) Anemia: per Dr. Mckeon's notes (previous hospitalist attending): Secondary to chronic kidney disease Doubt any acute GI bleed given history of nausea vomiting and questionable blood tinged vomit Received 2 units of blood transfusion on 06/12/2019 Hg improved from 6.2 to 7.8 Procrit and Venofer to be continued as outpatient (5) Hyperkalemia: Patient with ESRD, chronic anemia secondary to renal disease and hyperkalemia who has been previously resistant to dialysis. resolved (6) Hypotension: resolved monitor BP closely as outpatient (7) Diabetes: continue Tradjenta (8) Hematemesis: (9) Nausea & vomiting: per Dr. Mckeon's notes (previous hospitalist attending): Feel that these symptoms are likely related to uremia. Hg improved with blood transfusion continue Protonix 40mg daily monitor as outpatient (10) Cellulitis of right lower extremity: Improving. Continue Doxy 100 mg BID Continue hydrocortisone PRN itching. ff up as outpatient (11) Tobacco abuse: Nicotine patch ordered. (12) Hypocalcemia: (13) Low back pain radiating to both legs: LS xray: IMPRESSION: Moderate degenerative change. No acute process. resolved ff up as outpatient (14) DVT prophylaxis: SCDs d/c home HD tomorrow c/o [facility] ff up with Nephro as scheduled ff up with PCP in 1 week Admission and Anticipated Discharge Date Admission Date: June 12, 2019 Subjective ff up for ESRD seen resting in bed, sitting up comfortable, pleasant states he feels fine overall denies chest pain, dyspnea, palpitations, dizziness back pain has resolved no abdominal pain ,nausea/vomiting ambulating with no problems denies other symptoms Review of Systems Review of Systems: All systems reviewed & are unremarkable except as noted in HPI & below Physical Exam Physical Exam: General- oriented x 3, not in distress, speaks in sentences with no effort or accessory muscle use Head- atraumatic Eyes- PERRL, EOMI, anicteric ENT- oropharynx clear Neck- supple, no JVD, no adenopathy, no thyromegaly; carotids +2/2, no bruits appreciated Lungs- clear to auscultation bilaterally, no rales/wheezes Heart- normal rate, regular rhythm; no murmur, no gallop, no rub appreciated Abdomen- normal bowel sounds, nondistended, soft, nontender, no masses or hepatosplenomegaly Extremities- soft mass on the right lower leg, proximal aspect- non tender, no erythema mild lower leg edema on the right no calf tenderness; peripheral pulses intact left lower ext- no edema Neuro- alert, oriented x 3; CN 2-12 grossly intact; motor 5/5 bilaterally;sensation 100% on all extremities; no other gross focal neurologic deficits Skin- warm & dry Results & Data Results & Data ([facility]) Vital Signs (Past 12 Hours) Vital Signs Temp Pulse Pulse Pulse Resp BP BP 06/14/19 13:17 71 157/76 H 06/14/19 12:33 36.7 C 71 157/76 H 06/14/19 12:20 72 168/75 H 06/14/19 12:00 71 143/77 H 06/14/19 11:40 66 141/65 H 06/14/19 11:20 67 133/63 06/14/19 11:00 63 131/65 06/14/19 10:40 65 132/63 06/14/19 10:20 60 130/65 06/14/19 10:00 62 138/65 06/14/19 09:40 64 142/67 H 06/14/19 09:31 36.5 C 69 69 96/69 L 06/14/19 08:00 36.7 C 69 16 139/64 06/14/19 04:00 36.7 C 62 20 123/54 L Pulse Ox 06/14/19 13:17 06/14/19 12:33 06/14/19 12:20 06/14/19 12:00 06/14/19 11:40 06/14/19 11:20 06/14/19 11:00 06/14/19 10:40 06/14/19 10:20 06/14/19 10:00 06/14/19 09:40 06/14/19 09:31 06/14/19 08:00 92 06/14/19 04:00 93 Laboratory Results Laboratory Results - last 24 hr 06/13/19 06/13/19 06/14/19 15:59 21:16 07:26 WBC RBC Hgb Hct MCV MCH MCHC RDW Std Deviation RDW Coeff of Shaylee Plt Count MPV Immature Gran % (Auto) Neut % (Auto) Lymph % (Auto) [place] % (Auto) Eos % (Auto) Baso % (Auto) Immature Gran # (Auto) Neut # (Auto) Lymph # (Auto) [place] # (Auto) Eos # (Auto) Baso # (Auto) Absolute Nucleated RBC Nucleated RBC % (auto) Anisocytosis Sodium Potassium Chloride Carbon Dioxide Anion Gap BUN Creatinine Est Cr Clr Drug Dosing Est GFR ( Amer) Est GFR (Non-Af Amer) BUN/Creatinine Ratio Glucose POC Glucose 107 H 122 H 91 Calcium Phosphorus Magnesium 06/14/19 06/14/19 06/14/19 09:59 09:59 12:16 WBC 8.45 RBC 2.92 L Hgb 7.8 L Hct 23.5 L MCV 80.5 MCH 26.7 MCHC 33.2 RDW Std Deviation 50.6 H RDW Coeff of Shaylee 17.1 H Plt Count 263 MPV 10.1 Immature Gran % (Auto) 0.4 Neut % (Auto) 77.8 Lymph % (Auto) 10.3 [place] % (Auto) 10.4 Eos % (Auto) 0.9 Baso % (Auto) 0.2 Immature Gran # (Auto) 0.03 H Neut # (Auto) 6.57 H Lymph # (Auto) 0.87 L [place] # (Auto) 0.88 H Eos # (Auto) 0.08 Baso # (Auto) 0.02 Absolute Nucleated RBC 0.00 Nucleated RBC % (auto) 0.0 Anisocytosis Present Sodium 142 Potassium 3.9 D Chloride 110 H Carbon Dioxide 26 Anion Gap 6.0 BUN 81 H Creatinine 6.10 H* D Est Cr Clr Drug Dosing 10.3 Est GFR ( Amer) 10.0 Est GFR (Non-Af Amer) 8.6 BUN/Creatinine Ratio 13.3 Glucose 88 POC Glucose 94 Calcium 8.0 L Phosphorus 6.1 H Magnesium 2.2
--- NOTE | 2019-06-14 15:56 | Discharge Summary ---
Date of Service June 14, 2019 Admission HPI Per Admitting Provider Patient is a 68 yo male with history of ESRD, chronic anemia secondary to ESRD, Type 2 DM, hyperthyroidism with goiter, COPD, HTN, gout, chronic tobacco use, and recent hyperkalemia up to 7.4 who presented to the ED at the recommendation of Nephrology and his PCP due to concern for decompensating renal disease and need for dialysis. He has been very resistant to dialysis in the past because he overall had felt fine. He was seen in the ED last Wednesday and ultimately was sent home to return today for dialysis planning. Today, patient is not feeling well. He has severe pain in his lower back that is radiating down into the B/L LE. He also has nausea and vomiting today. He has had hematemesis today which was initially black and now had some bright red blood in it. He has not eaten since yesterday evening. He has been chain smoking over the weekend due to stress. His , Joan is with him and states that he has been increasingly stressed over the weekend about starting dialysis and coming back to the hospital today. He is also feeling weak today and has increased SOB compared to normal. SaO2 has been stable since presentation. He has been slightly hypotensive. Hgb today is 6.2. He was given a blood transfusion in the ED. Labs today showed Creatinine 9.5, GFR 5.0, Calcium 8.4, Potassium 5.4. Last A1C was done in May 2019 and was 5.6 as an outpatient. Admission Exam Per Admitting Provider Constitutional: + acute distress (due to pain in lower back/legs) and + ill appearing; + not appropriately hydrated and no altered mental status Eyes: PERRL, conjunctivae normal, anicteric sclerae ENMT: external ear and nose normal, oropharynx normal Respiratory: normal respiratory effort, lungs clear to auscultation Cardiovascular: RRR, no murmur, no edema Gastrointestinal (Abdomen): Inspection/Auscultation: abdomen normal to inspection and normal bowel sounds; abdomen not distended Percussion/Palpation: + abdomen tender (mild tenderness epigastric) Musculoskeletal: Head/Neck/Chest: normocephalic and head atraumatic + mild tenderness in the lower lumbar spine. Tenderness over B/L mid-buttock and down posterior legs. RLE with 1-2+ pitting edema. LLE with trace pitting edema. Skin: + rash (very mild erythema of the RLE) and + lesion (blistering RLE, improved); no skin tightening Trauma: + hematoma (Lump on the RLE with no tenderness but mild erythema) Principal Diagnosis END STAGE RENAL DISEASE Discharge Exam General- oriented x 3, not in distress, speaks in sentences with no effort or accessory muscle use Head- atraumatic Eyes- PERRL, EOMI, anicteric ENT- oropharynx clear Neck- supple, no JVD, no adenopathy, no thyromegaly; carotids +2/2, no bruits appreciated Lungs- clear to auscultation bilaterally, no rales/wheezes Heart- normal rate, regular rhythm; no murmur, no gallop, no rub appreciated Abdomen- normal bowel sounds, nondistended, soft, nontender, no masses or hepatosplenomegaly Extremities- soft mass on the right lower leg, proximal aspect- non tender, no erythema mild lower leg edema on the right no calf tenderness; peripheral pulses intact left lower ext- no edema Neuro- alert, oriented x 3; CN 2-12 grossly intact; motor 5/5 bilaterally;sensation 100% on all extremities; no other gross focal neurologic deficits Skin- warm & dry Discharge Data Allergies Allergy/AdvReac Type Severity Reaction Status Date / Time No Known Allergies Allergy NONE Verified 06/12/19 14:37 Consultations 06/12/19 15:14 ED Decision to Admit Stat 06/12/19 18:44 Consult Case Management - Discharge Planning Routine Consult Nephrology Routine Consult Vascular Surgery Routine Procedures Performed Operation Date: 06/13/19 11:35 Actual Procedures p Insertion of Perm Catheter, Right Internal Jugular Approach, Ultrasound Localization Of Right Internal Jugular Vein, Fluoroscopy for Positioning, Moderate Sedation from [id number](Right) - Keagan Rea MD Ordered Studies CCXR CXR: The heart is mildly enlarged. There is no failure. There is no focal pulmonary consolidation. There is mild left inferior hilar prominence, possibly representing a vascular summation. A short-term follow-up PA and lateral study is recommended. There are no pleural effusions.[There is an azygos fissure. There are carotid calcifications. IMPRESSION: 1. Stable cardiomegaly 2. No evidence of focal pulmonary consolidation 3. Mild left hilar prominence, likely resenting a vascular summation. A short- term follow-up PA and lateral study is recommended. Lumbar Spine Xray: XR lumbar spine 2-3V CLINICAL HISTORY: Low back pain with radiation into B/L LE pain COMPARISON STUDY: 07/11/2013 FINDINGS: Moderate degenerative disc change. Vertebral body stature is normal. No evidence for compression deformity. No significant subluxation. IMPRESSION: Moderate degenerative change. No acute process. 06/13/19 07:43 EV cvc insrt tunnel wo prt/veterinarian Routine 06/13/19 10:17 US EV guide vascular access Routine 06/14/19 13:14 US venous doppler LE RT Stat FINDINGS: The right common femoral, superficial femoral and popliteal veins were compressible. Augmentation was normal. Flow was shown within the deep calf vessels. Note is made of a 6.8 cm complex subcutaneous fluid collection of the right lower leg. IMPRESSION: 1. No evidence of deep venous thrombus within the right lower extremity. 2. 6.8 cm complex right lower leg fluid collection. A hematoma is favored. An abscess could appear similar but is considered less likely. Hospital Course (1) ESRD (end stage renal disease): Status post insertion of permacatheter through right internal jugular appr oach to initiate hemodialysis underwent 2 sessions of hemodialysis while admitted, tolerated well accepted for outpatient HD [facility], next HD tomorrow ff up with Nephro as scheduled (2) ESRD needing dialysis: As above (3) Acute uremia: Has had uremic symptoms mostly nausea and vomiting resolved (4) Anemia: per Dr. Mckeon's notes (previous hospitalist attending): Secondary to chronic kidney disease Doubt any acute GI bleed given history of nausea vomiting and questionable blood tinged vomit Received 2 units of blood transfusion on 06/12/2019 Hg improved from 6.2 to 7.8 Procrit and Venofer to be continued as outpatient monitor Hg closely as outpatient (5) Hyperkalemia: Patient with ESRD, chronic anemia secondary to renal disease and hyperkalemia who has been previously resistant to dialysis. resolved (6) Hypotension: resolved monitor BP closely as outpatient (7) Abnormal CXR: FINDINGS: The heart is mildly enlarged. There is no failure. There is no focal pulmonary consolidation. There is mild left inferior hilar prominence, possibly representing a vascular summation. A short-term follow-up PA and lateral study is recommended. There are no pleural effusions.[There is an azygos fissure. There are carotid calcifications. IMPRESSION: 1. Stable cardiomegaly 2. No evidence of focal pulmonary consolidation 3. Mild left hilar prominence, likely presenting a vascular summation. A short- term follow-up PA and lateral study is recommended. (8) Diabetes: a1c ~5 as per patient, hence Tradjenta advised to be discotinued continue outpatient ff up (9) Hematemesis: (10) Nausea & vomiting: per Dr. Mckeon's notes (previous hospitalist attending): Feel that these symptoms are likely related to uremia. Hg improved with blood transfusion continue Protonix 40mg daily monitor as outpatient (11) Cellulitis of right lower extremity: Improving. Continue Doxy 100 mg BID Continue hydrocortisone PRN itching. ff up as outpatient (12) Tobacco abuse: Nicotine patch ordered. (13) Low back pain radiating to both legs: LS xray: IMPRESSION: Moderate degenerative change. No acute process. resolved ff up as outpatient (14) DVT prophylaxis: SCDs d/c home HD tomorrow c/o [facility] ff up with Nephro as scheduled ff up with PCP in 1 week Total Time Total Time Spent Total Time Spent (In Minutes): 65 minutes Discharge Plan Discharge Items Patient Disposition: Home - Self-Care Reason For Visit: ESRD,DIALYSIS ACCESS Discharge Diagnosis: END STAGE KIDNEY DISEASE, PLACEMENT OF DIALYSIS CATHETER Condition on Discharge: Good Activity: Resume your previous activity Activity Comment: RESUME ACTIVITY GRADUALLY TOLERATED Lifting: Wait until after follow-up appointment Exercise/Sports: Wait until after follow-up appointment Driving/Machine Use: NO DRIVING UNTIL RE-EVALUATED AND ALLOWED BY PRIMARY CARE PHYSICIAN Non-emergency contact: Primary Care Provider Call non-emergency contact if: you have any medication questions, your symptoms worsen, your pain is not controlled, your pain is worsening, your pain is unusual for you, your pain is concerning for you, you have a fever, your wound has increased redness, your wound has increased drainage and your wound pain has increased Follow-up/Referrals: Paulette Finch DO [Outside Practitioners] - 06/20/19 11:05 am Michael Brown MD [Surgeon] - Diet: Carb Consistent or DM2, Dialysis Renal and Heart Healthy Addtl Attending Provider Instructions: YOUR NEXT DIALYSIS SESSION IS TOMORROW AT THE [facility] SITE. CALL PRIMARY CARE PHYSICIAN OR RETURN TO THE ER IMMEDIATELY IF WITH: SHORTNESS OF BREATH, ABDOMINAL PAIN, NAUSEA/VOMITING, FEVER/CHILLS, REDNESS/BLEEDING/DISCHARGE FROM DIALYSIS CATHETER, WORSENING LEG SWELLING/REDNESS/PAIN, VOMITING BLOOD OR COFFEE-GROUND MATERIAL, BLACK OR BLOODY STOOLS. FOLLOW UP WITH DR. FINCH AT THE [facility] NEXT WEEK 06/20/19 AT 11:05AM. FOLLOW UP WITH PHARMACEUTICAL LABORATORY TECHNICIAN SCHEDULED. Pending Studies at Discharge: No Stand-Alone Forms: [facility] [employer], Smoking Cessation Medications and DC Order Prescriptions: New nicotine [Nicoderm CQ] 21 mg/24 hr Patch 24 Hour 21 mg transdermal QAM Qty: 10 RF: 1 pantoprazole [Protonix] 40 mg tablet,delayed release (DR/EC) 40 mg PO QAM Qty: 14 RF: 0 Continued aspirin [Ecotrin Low Strength] 81 mg Tablet,Delayed Release (Dr/Ec) 81 mg PO QAM Qty: 0 RF: 0 allopurinol 100 mg Tablet 300 mg PO QAM PRN (Reason: gout) Qty: 0 RF: 0 hydralazine 100 mg Tablet 100 mg PO Q8H Qty: 0 RF: 0 methimazole 10 mg Tablet 30 mg PO QAM Qty: 0 RF: 0 metoprolol tartrate [Lopressor] 50 mg Tablet 100 mg PO QAM Qty: 0 RF: 3 metoprolol tartrate [Lopressor] 50 mg Tablet 50 mg PO QPM Qty: 0 RF: 0 amlodipine 10 mg Tablet 10 mg PO QAM RF: 0 Tylenol Rapid Release Gels 500 mg PO UD RF: 0 torsemide 100 mg tablet 100 mg PO DAILY RF: 0 tamsulosin 0.4 mg capsule 0.4 mg PO DAILY RF: 0 Vitamin D3 100 mcg (4,000 unit) Capsule 4,000 unit PO DAILY RF: 0 doxycycline hyclate 100 mg capsule 100 mg PO BID RF: 0 Discontinued Tradjenta 5 mg tablet 5 mg PO DAILY RF: 0 Discharge Orders: Discharge Order (Routine); Ordered 06/14/19 Ordered By: Breezy Tejeda Admission Data Admit Date/Time: 06/12/19 16:27 Attending Provider: Breezy Tejeda Admit Provider: Boby Mckeon Primary Care Provider: Sabino Murphy Other Providers: Boby Mckeon ; Michael Brown ; Keagan Rea Other Interventions: Discharge Summary Assessment (RN) Last Done: 06/14/19 16:25 DC Date/Time DO NOT enter until pt leaves facility: 06/14/19 17:26
[2019-06-14 16:14] VITALS: BP 158/79; TEMP 97.5; O2SAT 97
[2019-06-14 16:28] VITALS: PULSE 69
== END 2019-06-14 17:26 | disposition home or self-care (01) | DRG 982 ==
LOC: ED 13:17 → 1E 16:27 → SUATTDRO 16:27 → 1E 18:26

== ENCOUNTER 2021-01-10 03:51 | Inpatient (IN) ==
[2021-01-10 04:28] LABS: Basophils # (auto) 0.03 K/uL (0-0.2); Basophils % (auto) 0.1 %; Hematocrit (blood only) 33.7 % (42-52); Hemoglobin 11.4 g/dL (14.0-18.0); Immature Granulocytes # (auto) 0.55 K/uL (0.00-0.02); Immature Granulocytes % (auto) 2.6 %; Lymphocytes # (auto) 1.23 K/uL (1.2-3.4); Lymphocytes % (auto) 5.8 %; Mean Corpuscular Hemoglobin 29.7 pg (25-34); Mean Corpuscular Hgb Conc 33.8 g/dL (32-36); Mean Corpuscular Volume 87.8 fL (80-100); Mean Platelet Volume 10.7 fL (7.4-10.4); Monocytes # (auto) 2.18 K/uL (0.11-0.59); Monocytes % (auto) 10.3 %; Neutrophils # (auto) 17.23 K/uL (1.4-6.5); Neutrophils % (auto) 81.2 %; Nucleated RBC # (auto) 0.04 K/uL (0-0); Nucleated RBC % (auto) 0.2 %; Platelet Count 315 K/uL (130-400); RDW Coefficient of Variation 15.3 % (11.5-14.5); RDW Standard Deviation 48.8 fL (36.4-46.3); Red Blood Count 3.84 M/uL (4.7-6.1); White Blood Count 21.22 K/uL (4.8-10.8)
[2021-01-10 04:38] LABS: INR 1.8 (0.9-1.1); Partial Thromboplastin Ratio 1.1; Partial Thromboplastin Time 28.2 Seconds (21.0-31.0)
[2021-01-10 05:03] LABS: Influenza A virus by PCR Negative (Neg); Influenza B virus by PCR Negative (Neg); RSV by PCR Negative (Neg)
[2021-01-10] MEDS ORDERED: ALBUT/IPRATROP 3MG/0.5MG NEB 3 ML VIAL NEB STA (05:14)
[2021-01-10 05:15] LABS: Albumin Globulin Ratio 0.9 (0.9-2); Albumin Level 3.4 gm/dl (3.4-5.0); BUN Creatinine Ratio 14.9 (10-20); Bilirubin,Total 1.1 mg/dl (0.2-1); Calcium 7.3 mg/dl (8.5-10.1); Creatinine Clr Calc Pharmacy 6.8 ml/min; Est GFR (African American) 5.5 ml/min; Est GFR (Non-African American) 4.7 ml/min; Globulin 3.8 gm/dl (2.5-4.0); Magnesium 2.9 mg/dl (1.8-2.4); Total Protein 7.2 gm/dl (6.4-8.2); Troponin I 0.108 ng/ml (0-0.045)
[2021-01-10] MEDS ORDERED: OPTIRAY 320 100ml IV ONE (06:22)
[2021-01-10] MEDS ORDERED: PIPERACILL/TAZOBAC CONSULT ACTIVE PRN (06:23)
[2021-01-10] MEDS ORDERED: PIPERACILLIN/TAZOBACTAM 4.5 GM/120 ML BAG IV ONE (06:23)
--- NOTE | 2021-01-10 06:48 | XRay Report ---
XR chest 1V portable CLINICAL HISTORY: SOB. COMPARISON STUDY: 10/11/2020 TECHNIQUE: 1 view of the chest FINDINGS: Single frontal view of the chest demonstrates the cardiomediastinal silhouette to be within normal li mits. There is an approximately 2.7 x 2.0 cm right suprahilar nodule. Findings are suspicious for krystin g cancer. Follow-up CT of the chest with contrast is recommended. The remainder of the lungs are zane r of alveolar opacities. There is no evidence for pleural effusion. There is no evidence for vascular congestion. There is no acute osseous pathology. IMPRESSION: 2.7 cm right suprahilar nodular suspicious for lung cancer. CT of the chest with contrast is recommended. ACT 112: Negative or not required by law. Electronically signed by: Peter Monson M.D. 01/10/2021 6:47 AM
[2021-01-10 06:56] LABS: D Dimer 9240 ug/L FEU (0-500)
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
--- NOTE | 2021-01-10 08:11 | CT Scan Report ---
ABDOMEN AND PELVIS CT WITH IV CONTRAST CT DOSE: 582.22 mGy.cm HISTORY: periumbilical abd. pain TECHNIQUE: Multiaxial CT images of the abdomen and pelvis were performed following the use of intrave nous contrast. A dose lowering technique was utilized adhering to the principles of ALARA. COMPARISON STUDY: Abdomen and pelvis CT 10/14/2017. FINDINGS: Small right and trace left pleural effusions. The heart remains mildly enlarged. Bilateral L5 spondylolysis with associated grade 2 anterolisthesis. No fractures within the visualized osseous structures. No pneumoperitoneum. No pneumatosis. No hepatic or splenic masses. Normal right adrenal g land. Stable 2.4 cm left adrenal adenoma. The pancreas is unremarkable. There is contrast within the gallbladder consistent with vicarious excretion. Atrophic kidneys. No hydronephrosis. A few subcentim eter bilateral renal hypodense lesions. These are technically too small to characterize but statistic ally favor cysts. Extensive calcified plaque within the aorta and iliac arteries. Mild to moderate st enosis within the proximal superior mesenteric and proximal bilateral renal arteries. Multifocal mild to moderate stenosis within the bilateral external iliac arteries. There is high-grade stenosis with in the left common femoral artery and moderate stenosis of the right common femoral artery due to the calcified plaque. Mild bladder wall thickening which is likely due to underdistention. There is mild body wall edema. Trace pelvic free fluid. The prostate gland is normal in size. Colonic diverticulos is. No evidence for acute diverticulitis. No bowel wall thickening or obstruction. Normal appendix. IMPRESSION: 1. No bowel wall thickening or obstruction. 2. Normal appendix. 3. Colonic diverticulosis. No evidence for acute diverticulosis. 4. Small right and trace left pleural effusions. 5. Extensive calcified plaque throughout the arterial system with high-grade stenosis within the left common femoral artery. 6. Additional findings as described above. ACT 112: Negative or not required by law. Electronically signed by: Burke Jaimes M.D. 01/10/2021 8:10 AM
[2021-01-10] MEDS ORDERED: METOPROLOL TARTRATE 1 MG/ML VIAL IV PRN (08:36)
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
[2021-01-10] MEDS ORDERED: INSULIN HUMAN REGULAR PER UNIT 10 UNITS in SYRINGE 9.9 ML IV ONE (09:30)
[2021-01-10] MEDS ORDERED: DEXTROSE 50% 50 ML SYRINGE IV ONE (09:30)
[2021-01-10] MEDS ORDERED: CALCIUM GLUCONATE 10% 1,000 MG in SODIUM CHLORIDE 0.9% 50 ML IV SCH (09:30)
[2021-01-10] MEDS ORDERED: SODIUM BICARB 8.4% INJ 50 MEQ/50 ML SYR IV SCH (09:30)
--- NOTE | 2021-01-10 10:38 | Electrocardiogram Report ---
Test Reason : Blood Pressure : / mmHG Vent. Rate : 071 BPM Atrial Rate : 075 BPM P-R Int : 000 ms QRS Dur : 136 ms QT Int : 504 ms P-R-T Axes : 000 049 029 degrees QTc Int : 547 ms Sinus rhythm with 1st degree AV block and possible blocked PAC Non-specific intra-ventricular conduction block Abnormal ECG When compared with ECG of 08-JAN-2021 05:26, VT interval is longer QRS duration has increased Non-specific change in ST segment in Anterior leads Nonspecific T wave abnormality, improved in Anterolateral leads QT has lengthened Confirmed by Bhavesh Pan ([id number]) on 01/10/2021 10:38:06 AM Referred By: REFERRED SELF Confirmed By:Jack Pan
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
[2021-01-10] MEDS ORDERED: ALBUT/IPRATROP 3MG/0.5MG NEB 3 ML VIAL NEB PRN (12:22)
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
[2021-01-10] MEDS ORDERED: ALBUTEROL HFA 8 GM INHALER INH PRN (12:44)
[2021-01-10] MEDS ORDERED: ACETAMINOPHEN 325 MG TAB PO PRN (12:44)
[2021-01-10] MEDS ORDERED: GLUCOSE 40% GEL 15 GM TUBE PO PRN (12:44)
[2021-01-10] MEDS ORDERED: GLUCOSE 10 TABS/TUBE PO PRN (12:44)
[2021-01-10] MEDS ORDERED: CARBOHYDRATES FOR HYPOGLYCEMIA PO PRN (12:44)
[2021-01-10] MEDS ORDERED: GLUCAGON FOR INJ 1 MG VIAL SQ PRN (12:44)
[2021-01-10] MEDS ORDERED: ALBUTEROL 0.083% NEBU SOLN 3 ML VIAL INH PRN (12:44)
[2021-01-10] MEDS ORDERED: ONDANSETRON INJ 2 MG/ML 2 ML VIAL IV PRN (12:44)
[2021-01-10] MEDS ORDERED: PHARMACY GLYCEMIC MGMT CONSULT PRN (12:44)
[2021-01-10] MEDS ORDERED: DEXTROSE 50% 50 ML SYRINGE IV PRN (12:44)
[2021-01-10] MEDS ORDERED: INSULIN ASPART 100 UNITS/ML 3 ML PEN SC SCH (12:44)
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
--- NOTE | 2021-01-10 13:42 | Pharmacy Report ---
Pharmacy Glycemic Short Note 2 - Date of Service January 10, 2021 - Glycemic Short BSG Results (Last 24 hours): 01/10/21 04:10 Glucose 203 H OUTPATIENT ANTIDIABETIC REGIMEN: * No meds for DM listed on refill records or med rec * A1c = ? ASSESSMENT: * Type 2 diabetic admitted for COPD exacerbation, ALI, sepsis, ? SBP * Patient had been taking a prednisone taper and azithromycin prior to admission. Last dose of prednisone reported at 0100 today * Patient is currently NPO, prednisone taper will resume tomorrow * Will initiate SQ Novolog utilizing weight and "moderate" stress level. Will check BSGs and cover Q 4 hrs initially as I am not going to provide basal insulin at this time due to NPO status, no dm meds prior to admission, and lack of recent A1c. PLAN FOR INPATIENT GLYCEMIC CONTROL: * Basal insulin * none at this time * Bolus insulin * NovoLog per scale Q 4 hrs initially * Goal Range: Low 110 mg/dL - High 140 mg/dL * Correction Factor: 30 mg/dL/unit * Nutritional / Prandial insulin per carb ratio of 1 unit per 10 grams CHO consumed PLAN FOR DISCHARGE: * to be determined
[2021-01-10] MEDS: HEPARIN SOD 5,000 UNIT/0.5 ML VIAL SQ SCH ×2 (14:01→20:40)
[2021-01-10] MEDS: PANTOprazole 40 MG TAB PO SCH (14:27)
[2021-01-10] MEDS: NICOTINE 14 MG/24 HR PATCH TD SCH (14:39)
[2021-01-10] MEDS: LEVOTHYROXINE SODIUM 125 MCG TABLET PO SCH (14:39)
[2021-01-10] MEDS: METOPROLOL TARTRATE 100 MG TAB PO SCH (14:39)
[2021-01-10] MEDS: PIPERACILLIN/TAZOBACTAM 3.375 GM in DEXTROSE 5% 100 ML IV SCH (14:39)
--- NOTE | 2021-01-10 14:53 | Ultrasound Report ---
US liver CLINICAL HISTORY: Abdominal pain. Evaluate liver and gallbladder. COMPARISON STUDY: CT of the abdomen and pelvis performed earlier today. FINDINGS: No hepatic lesions are identified. There is no biliary ductal dilatation. Common bile duct measures 5 mm in caliber. There is a small gallstone within the gallbladder. There is no gallbladder wall thickening. No sonographic Cobb sign was elicited. Pancreatic body is normal. Head and tail ar e obscured by overlying bowel gas. There is no right hydronephrosis. Right renal atrophy and cortical thinning is present. A small right pleural effusion is incidentally noted. IMPRESSION: 1. Cholelithiasis. No sonographic evidence of acute cholecystitis. 2. No biliary ductal dilatation. 3. Small right pleural effusion. ACT 112: Negative or not required by law. Electronically signed by: Jose Hastings M.D. 01/10/2021 2:51 PM
[2021-01-10] MEDS: UMECLIDINIUM/VILANTEROL 62.5/25MCG 7 PUFFS/INHALER INH SCH (15:41)
[2021-01-10 16:11] LABS: Acetaminophen < 2 ug/ml (10-30); Salicylate < 1.7 mg/dl (2.8-20)
[2021-01-10 16:31] LABS: Hepatitis B Surf Ag Rflx Conf Neg (Neg)
[2021-01-10] MEDS ORDERED: oxyCODONE HCL IR 5 MG TAB (IMMEDIATE RELEASE) PO STA (16:43)
[2021-01-10] MEDS: INSULIN ASPART 100 UNITS/ML 3 ML PEN SC SCH ×2 (16:44→20:54)
[2021-01-10 16:59] LABS: Hepatitis C IgG 13Yrs+Old_Rflx Neg (Neg)
[2021-01-10] MEDS ORDERED: hydrALAZINE HCL 20 MG/ML VIAL IV PRN (18:58)
[2021-01-10] MEDS ORDERED: methylPREDNISolone 40 MG in SYRINGE 0 ML IV SCH (21:00)
[2021-01-10] MEDS: hydrOXYzine HCl 25 MG TAB PO PRN (23:50)
[2021-01-11] MEDS: INSULIN ASPART 100 UNITS/ML 3 ML PEN SC SCH ×6 (00:31→22:08)
[2021-01-11] MEDS: PIPERACILLIN/TAZOBACTAM 3.375 GM in DEXTROSE 5% 100 ML IV SCH ×2 (02:51→15:08)
[2021-01-11] MEDS: LEVOTHYROXINE SODIUM 125 MCG TABLET PO SCH (06:12)
[2021-01-11 06:45] LABS: Hematocrit (blood only) 33.5 % (42-52); Hemoglobin 11.1 g/dL (14.0-18.0); Mean Corpuscular Hemoglobin 29.2 pg (25-34); Mean Corpuscular Hgb Conc 33.1 g/dL (32-36); Mean Corpuscular Volume 88.2 fL (80-100); Mean Platelet Volume 10.8 fL (7.4-10.4); Nucleated RBC # (auto) 0.16 K/uL (0-0); Nucleated RBC % (auto) 0.9 %; Platelet Count 258 K/uL (130-400); RDW Coefficient of Variation 15.5 % (11.5-14.5); RDW Standard Deviation 48.8 fL (36.4-46.3); White Blood Count 18.46 K/uL (4.8-10.8)
[2021-01-11 07:36] LABS: Albumin Globulin Ratio 0.9 (0.9-2); Albumin Level 2.9 gm/dl (3.4-5.0); BUN Creatinine Ratio 12.4 (10-20); Bilirubin,Total 1.9 mg/dl (0.2-1); Calcium 7.3 mg/dl (8.5-10.1); Creatinine Clr Calc Pharmacy 10.9 ml/min; Est GFR (African American) 9.5 ml/min; Est GFR (Non-African American) 8.2 ml/min; Globulin 3.3 gm/dl (2.5-4.0); Magnesium 2.8 mg/dl (1.8-2.4); Phosphorus 8.3 mg/dl (2.5-4.9); Potassium 6.7 mmol/L (3.5-5.1); Total Protein 6.2 gm/dl (6.4-8.2)
[2021-01-11 08:20] LABS: Estimated Average Glucose 160 mg/dl; Hemoglobin A1C 7.2 % (4.5-5.6)
[2021-01-11] MEDS: METOPROLOL TARTRATE 100 MG TAB PO SCH (08:38)
[2021-01-11] MEDS: NICOTINE 14 MG/24 HR PATCH TD SCH (08:38)
[2021-01-11] MEDS: HEPARIN SOD 5,000 UNIT/0.5 ML VIAL SQ SCH ×2 (08:38→20:31)
[2021-01-11] MEDS: UMECLIDINIUM/VILANTEROL 62.5/25MCG 7 PUFFS/INHALER INH SCH (08:39)
[2021-01-11] MEDS ORDERED: HEPARIN SOD (PORCINE) 1000 UNIT/ML IV ONE (08:47)
[2021-01-11] MEDS ORDERED: predniSONE 10 MG TABLET PO SCH (09:00)
[2021-01-11] MEDS: PANTOprazole 40 MG TAB PO SCH (09:30)
--- NOTE | 2021-01-11 11:26 | Nephrology Progress Note ---
Date of Service January 11, 2021 Assessment & Plan (1) ESRD (end stage renal disease): Plan: Patient is ESRD on dialysis Wednesday. He missed outpatient dialysis on Wednesday. He was dialyzed yesterday. no signs of volume overload but has hyperkalemia. -We will dialyze him again today for 3-1/2 hours. (2) Hyperkalemia: Plan: Potassium of 6.7 today. We will dialyze him today for 3-1/2 hours initially 1K bath for 2 hours and then 2K bath. -Renal diet Admission and Anticipated Discharge Date Admission Date: January 10, 2021 Subjective Seen in follow-up for ESRD. He feels well denies any shortness of breath or leg swelling. He had dialysis yesterday. Potassium is still high today Review of Systems Review of Systems: All other systems were reviewed and negative except as noted in HPI Physical Exam Physical Exam: General exam: Appears comfortable, no acute distress HEENT: Pupils are equal and reactive to light Neck: No JVD, neck is supple trachea is midline Respiratory system: Clear breath sounds bilaterally. Gastrointestinal: Abdomen is soft, non distended, non tender, bowel sounds are present CVS: Regular rate and rhythm. No murmurs, rubs or gallops Musculoskeletal: No joint or muscle tenderness Extremities: Non tender, no edema, peripheral pulses are present Neuro: Oriented, no tremors, no focal neurological deficits Skin: No rashes Access: Left AV fistula with good bruit Results & Data ([facility]) Vital Signs (Past 12 Hours) Vital Signs Temp Pulse Pulse Resp BP Pulse Ox 01/11/21 09:19 67 01/11/21 07:55 36.6 C 68 18 148/82 H 96 01/11/21 03:44 36.7 C 65 18 155/80 H 91 01/10/21 23:47 37.1 C 67 16 139/75 94 Laboratory Results 01/11/21 06:17 01/11/21 01/11/21 06:17 06:17 WBC 18.46 H RBC 3.80 L MCV 88.2 MCH 29.2 MCHC 33.1 RDW Std Deviation 48.8 H RDW Coeff of Shaylee 15.5 H Plt Count 258 MPV 10.8 H Phosphorus 8.3 H Albumin 2.9 L
[2021-01-11] MEDS: HEPARIN SOD (PORCINE) 1000 UNIT/ML IV SCH ×2 (16:51→16:52)
--- NOTE | 2021-01-11 18:04 | Hospitalist Progress Note ---
Date of Service January 11, 2021 Assessment & Plan (1) Pulmonary nodule: (2) Acute hyperkalemia: (3) High transaminase levels: Plan: 70-year-old male with PMHx of COPD, diastolic CHF, A. fib, history of right lung mass, ES RD on HD, DM type II, hyperthyroidism with goiter, gout, and chronic tobacco use presented 01/10 with complaints of increasing SOB x 3 weeks, more so in last week despite being on OP doxy and prednisone. He presented 2 days ago in the ED when CTA chest was done and was negative for PE, patient was placed on azithromycin and DC'd. Is being managed for the following: #. Acute exacerbation of chronic obstructive pulmonary disease (COPD): - Admitted to tele, influenza and Covid negative - wheezing and cough has improved. - Pulm on board: No indication for steroid, continue inhaler and placed on Anoro as well as as needed DuoNebs. No pulmonology indication of antibiotic. - Continue with nebulization, supportive management. #. Pulmonary nodule Admitting CXR:2.7 cm right suprahilar nodular suspicious for lung cancer. CT of the chest was done few days prior to this admission which showed no PE and delineated the nodular lesion. Pulm evaluated the patient while inpatient, patient needs outpatient pulmonology follow-up and work-up of the nodule. #. Leukocytosis Admitting WBC of 21.22K with left shift, admitting pro-Osman 0.97 Admitting CTAP: No acute or infectious process identified. Patient denies headache/dizziness/chest pain/belly pain/any skin wounds/does not make urine/acute changes in bowel habit. On examination, no open wounds, fistula site was normal without erythema or tenderness. Chest was clear to auscultation and no belly tenderness today. Though pro-Osman can be ambiguous given hemodialysis patient, due to left shift continue with antibiotic. Await 01/10 blood culture. Continue with Zosyn 01/10 #. Transaminitis Patient presented with AST and ALT in the thousands associated with belly pain Admitting ASA and Tylenol level negative Admitting right upper quadrant ultrasound positive for cholelithiasis only. No hepatic or gallbladder lesions identified. Patient's belly pain has resolved and is tolerating diet well. Hepatitis panel sent, GI consultedacute hepatic panel, CMV, EBV, pantoprazole. Trend LFT, await further GI recommendation. #. Electrolyte abnormalities [hyperkalemia, hyperphosphatemia, hypocalcemia] #. ESRD on hemodialysis Patient undergoes dialysis Wednesday, missed dialysis on Wednesday [employer] Electrolyte abnormalities secondary to missed hemodialysis. Currently undergoing hemodialysis, nephrology on board. We'll continue to monitor electrolytes daily. #. Diastolic CHF, acute on chronic: -History of such, can continue on metoprolol 100 mg am and 50 mg p.m. -Last echo was completed in July 2019, follows with Dr. Peterson as an outpatient, stress EKG showed no signs of ischemia at that point in time. -LV EF of 50 to 54%, normal wall motion, mild aortic regurg, left ventricular hypertrophy noted on resting EKG, patient was unable to complete stress test due to fatigue, exercise capacity below average. Heart rate response to stress was normal. Blood pressure response to exercise was hypertensive -Secondary to missed dialysis -Crackles and BLE fluid has improved with dialysis. #. Elevated troponin: - Trop 0.065 --> 0.108 --> plan trend - EKG was reviewed and appears without acute ischemic changes -Likely demand ischemia #. Chronic medical conditions Resume meds as appropriate. #. Tobacco abuse: -Cessation of smoking encouraged at bedside, acute COPD exacerbation as above -Nicotine patch ordered #. Diabetes: -ISS with Accu-Cheks ACHS -Last A1c was 6.6 on 12/03/2020 -Glycemic pharmacy consult DVT ppx:- teds, scds, heparin subcu CODE: Full code Dispo: From home, possible discharge likely in a day or so if blood culture results and no other source of infection found. Patient doing well. Admission and Anticipated Discharge Date Admission Date: January 10, 2021 Subjective Patient was lying in bed, room air, NAD, no new acute events overnight. Patient is eating and moving bowels okay per RN. Patient denies any fever/headache/dizziness/chills/chest pain/palpitation/other review of symptoms. Physical Exam Physical Exam: GENERAL: Alert and oriented x3. NAD, on RA. HEENT: No pallor, no icterus. Pupils equal, round and reactive to light. Oral mucosa moist. NECK: No JVD, no neck masses. HEART: S1 and S2 heard. Regular rate and rhythm. No murmur, no gallop. RESPIRATORY SYSTEM: Normal AP diameter. No accessory muscle use. No wheezing, no crackles. ABDOMEN: Soft, bowel sounds present,nontender, no distention. CENTRAL NERVOUS SYSTEM: Alert and oriented x3. No facial droop. Speech is clear. Obeys simple commands. Moves extremities. EXTREMITIES: 1+ BLE edema, no erythema seen. Right elbow with tophaceous gout - no erythema or tenderness. AV fistula noted in LUE -no erythema or tenderness noted. Results & Data Results & Data ([facility]) Vital Signs (Past 12 Hours) Vital Signs Temp Pulse Pulse Resp BP BP Pulse Ox 01/11/21 17:00 72 174/90 H 01/11/21 16:40 64 157/86 H 01/11/21 16:32 62 174/88 H 01/11/21 16:14 36.8 C 64 01/11/21 15:05 36.7 C 64 19 150/69 H 91 01/11/21 15:00 65 01/11/21 11:48 37.1 C 64 18 154/79 H 92 01/11/21 09:19 67 01/11/21 07:55 36.6 C 68 18 148/82 H 96
--- NOTE | 2021-01-11 21:15 | Pharmacy Report ---
Pharmacy Glycemic Sign Off Nt - Date of Service January 11, 2021 - Assessment & Plan ASSESSMENT: * Pharmacy was consulted on 01/10/21 for glycemic control and to write orders per [facility] inpatient glycemic control protocol. * Major changes made by pharmacy to antidiabetic regimen include: * ADDING WEIGHT BASED BOLUS INSULIN WITH NOVOLOG ACHS * Patient has been receiving/requiring 0 units of insulin per day for adequate glycemic control * BSGs ranging <100 AND >70 * Regimen has only required minor adjustments over the past 48hrs to achieve this level of control * Do not anticipate further changes in patient status that would quickly deteriorate glycemic control (i.e. patient to be NPO for upcoming procedure, steroids tapering, starting tube feedings, etc). * Please see recommendations for outpatient antidiabetic regimen below. PLAN FOR INPATIENT GLYCEMIC CONTROL: No changes needed to current regimen. * PATIENT IS REFUSING ALL BSG CHECKS AND INSULIN DOSING * Continue NovoLog per scale ACHS/Q6hrs while NPO * Goal range = 100 140 mg/dl * CF = 30 mg/dl/unit * CR = 1 unit for ever -- g CHO consumed * Pharmacy is signing off of glycemic consult and will no longer be making adjustments to inpatient regimen. Please feel free to re-consult if needed. Thank you. DISCHARGE RECOMMENDATIONS: * A1c 7.2 % on 01/11/21; CONTINUE DIET AND LIFESTYLE MODIFICATIONS
[2021-01-11] MEDS: hydrOXYzine HCl 25 MG TAB PO PRN (23:00)
[2021-01-12] MEDS: PIPERACILLIN/TAZOBACTAM 3.375 GM in DEXTROSE 5% 100 ML IV SCH (03:49)
[2021-01-12 05:32] LABS: Hepatitis A Antibody IgM NON-REACTIVE (NON-REACTIVE); Hepatitis B Core Antibody IgM NON-REACTIVE (NON-REACTIVE)
[2021-01-12] MEDS: LEVOTHYROXINE SODIUM 125 MCG TABLET PO SCH (05:50)
[2021-01-12 06:13] LABS: Hematocrit (blood only) 32.4 % (42-52); Hemoglobin 10.7 g/dL (14.0-18.0); Mean Corpuscular Hemoglobin 29.4 pg (25-34); Mean Platelet Volume 11.3 fL (7.4-10.4); Nucleated RBC # (auto) 0.47 K/uL (0-0); Platelet Count 245 K/uL (130-400); RDW Coefficient of Variation 15.2 % (11.5-14.5); RDW Standard Deviation 49.2 fL (36.4-46.3); Red Blood Count 3.64 M/uL (4.7-6.1); White Blood Count 15.64 K/uL (4.8-10.8)
[2021-01-12 06:54] LABS: Albumin Globulin Ratio 0.8 (0.9-2); Albumin Level 2.7 gm/dl (3.4-5.0); BUN Creatinine Ratio 10.6 (10-20); Bilirubin,Total 1.6 mg/dl (0.2-1); Calcium 7.4 mg/dl (8.5-10.1); Creatinine Clr Calc Pharmacy 13.7 ml/min; Est GFR (African American) 12.5 ml/min; Est GFR (Non-African American) 10.8 ml/min; Globulin 3.2 gm/dl (2.5-4.0); Magnesium 2.4 mg/dl (1.8-2.4); Phosphorus 6.2 mg/dl (2.5-4.9); Potassium 4.8 mmol/L (3.5-5.1); Total Protein 5.9 gm/dl (6.4-8.2)
[2021-01-12] MEDS: INSULIN ASPART 100 UNITS/ML 3 ML PEN SC SCH ×2 (08:27→11:58)
[2021-01-12] MEDS: METOPROLOL TARTRATE 100 MG TAB PO SCH (08:49)
[2021-01-12] MEDS: PANTOprazole 40 MG TAB PO SCH (08:49)
[2021-01-12] MEDS: UMECLIDINIUM/VILANTEROL 62.5/25MCG 7 PUFFS/INHALER INH SCH (08:49)
[2021-01-12] MEDS: HEPARIN SOD 5,000 UNIT/0.5 ML VIAL SQ SCH (08:50)
[2021-01-12] MEDS: NICOTINE 14 MG/24 HR PATCH TD SCH (08:50)
--- NOTE | 2021-01-12 09:48 | Gastroenterology Progress Note ---
Date of Service January 12, 2021 Assessment & Plan (1) High transaminase levels: Plan: Patient with transaminases in the thousands in the setting of COPD, lung infection. lung mass, ESRD on HD and hyerpkalemia requiring emergent HD, sepsis. Noted to have acute finding of transaminases the 7204-1451 range. Suspect either viral or ischemic or drug induced (?abx) in origin. High suspicion for DILI in the setting of doxy and azithro for several days prior to admission. Await viral testing. Follow LFTs. Slowly improving. avoid hepatoxins. Liver imaging reviewed. Check INR with next lab draw. (2) Sepsis: (3) Acute exacerbation of chronic obstructive pulmonary disease (COPD): (4) Diastolic CHF, acute on chronic: Admission and Anticipated Discharge Date Admission Date: January 10, 2021 Subjective Feeling a bit better overall. Abd pain has resolved. Tolerating diet. Less SOB. Review of Systems Review of Systems: All systems reviewed & are unremarkable except as noted in HPI & below Physical Exam Constitutional: WD/WN, vitals as above Respiratory: Auscultation: + diminished lung sounds Cardiovascular: RRR, no murmur, no edema Gastrointestinal (Abdomen): normal bowel sounds, soft, nontender, no hepatosplenomegaly Results & Data ([facility]) Vital Signs (Past 12 Hours) Vital Signs Temp Pulse Pulse Resp BP Pulse Ox 01/12/21 07:11 36.4 C L 71 18 164/74 H 94 01/12/21 03:33 36.5 C 70 16 162/77 H 93 01/11/21 23:12 80 01/11/21 23:00 37 C 80 16 162/81 H 91 (1) Sepsis Sepsis acute organ dysfunction status: without acute organ dysfunction Sepsis type: sepsis due to unspecified organism Qualified Code(s): A41.9 - Sepsis, unspecified organism
--- NOTE | 2021-01-12 11:14 | Nephrology Progress Note ---
Date of Service January 12, 2021 Assessment & Plan (1) ESRD (end stage renal disease): Plan: Patient is ESRD on dialysis Wednesday. He missed outpatient dialysis on Wednesday. He was dialyzed yesterday. no signs of volume overload but has hyperkalemia. He tolerated dialysis well yesterday. -We will dialyze him again tomorrow or Wednesday (2) Hyperkalemia: Plan: Potassium of 4.8 today from 6.7 yesterday. Continue to monitor potassium daily -Renal diet Admission and Anticipated Discharge Date Admission Date: January 10, 2021 Subjective Seen in follow-up for ESRD. No shortness of breath. He did dialysis yesterday. Potassium is better Review of Systems Review of Systems: All other systems were reviewed and negative except as noted in HPI Physical Exam Physical Exam: General exam: Appears comfortable, no acute distress HEENT: Pupils are equal and reactive to light Neck: No JVD, neck is supple trachea is midline Respiratory system: Clear breath sounds bilaterally. Gastrointestinal: Abdomen is soft, non distended, non tender, bowel sounds are present CVS: Regular rate and rhythm. No murmurs, rubs or gallops Musculoskeletal: No joint or muscle tenderness Extremities: Non tender, no edema, peripheral pulses are present Neuro: Oriented, no tremors, no focal neurological deficits Skin: No rashes Access: Left AV fistula with good bruit Results & Data ([facility]) Vital Signs (Past 12 Hours) Vital Signs Temp Pulse Pulse Resp BP Pulse Ox 01/12/21 08:00 67 01/12/21 07:11 36.4 C L 71 18 164/74 H 94 01/12/21 03:33 36.5 C 70 16 162/77 H 93 Laboratory Results 01/12/21 05:44 01/12/21 01/12/21 05:44 05:44 WBC 15.64 H RBC 3.64 L MCV 89.0 MCH 29.4 MCHC 33.0 RDW Std Deviation 49.2 H RDW Coeff of Shaylee 15.2 H Plt Count 245 MPV 11.3 H Phosphorus 6.2 H D Albumin 2.7 L
[2021-01-12 12:24] VITALS: BP 140/71; PULSE 61; TEMP 98.1; O2SAT 96
[2021-01-12] MEDS ORDERED: levoFLOXacin 750 MG TAB PO ONE (13:54)
--- NOTE | 2021-01-12 14:30 | Discharge Summary ---
Date of Service January 12, 2021 Admission HPI Per Admitting Provider This is a 70-year-old male with PMHx of COPD, diastolic CHF, A. fib, history of right lung mass, ES RD on HD, DM type II, hyperthyroidism with goiter, gout, and chronic tobacco use. Patient notes that he has been feeling increased shortness of breath x3 weeks. It worsened within the past 1 week despite being on outpatient doxycycline and prednisone. He was here in the ER due to the same complaints 2 days ago where he was placed on azithromycin, CTA was checked and was negative for PE, was given nebulizer treatment then and improved so was sent home. . Initially he had been coughing up sputum however reports that his cough is now dry, does not require O2 at baseline, and he continues to smoke. Patient denies any fevers chills or sweats. His main complaint today is that he has increased abdominal pain, central abdomen per his report, and that he has been nauseous and not able to eat for over 48 hours. Pt vomitted once this morning. He had diarrhea yesterday and today, no blood or dark tarry stools. Patient feels slightly hungry and is requesting something to eat at this point because his mouth is dry. Because of feeling so ill, he did not participate in dialysis as routinely scheduled MWF, this past Wednesday. We discussed elevated liver enzymes and wanting to check out his gallbladder, however he reports "my liver is 100%, there is never been anything wrong with it, I do not think that is what is going on". He is agreeable to having ultrasound and having GI evaluate him due to his abdominal pain after our discussion. Patient denies any fevers, chills or sweats. Patient was given Solu-Medrol 60 mg IV in the ER today. He was seen while getting dialysis this morning on the floor. Admission Exam Per Admitting Provider General: awake, alert, no apparent distress, + appears chronically ill Head: Normocephalic, atraumatic ENT: PERRL, EOMI, no pharyngeal exudate, mucous membranes dry Chest: Diminished breath sounds throughout, on room air, no coarse adventitious breath sounds Cardiac: Regular rate, slightly tachycardic, no murmur, no JVD, normal peripheral pulses, good capillary refill Abdominal: NABS x 4 quadrants, soft, nondistended, + tender to palpation in epigastric and specifically right upper quadrant with deep palpation, no rebound or guarding, negative Cobb sign Extremities: aVF access for HD in LUE, + thrill and bruit, multiple tattoos, 1+ peripheral nonpitting edema in BLE, calfs nontender to palpation Psych: Normal mood and affect Neuro: AAO x 3, strength intact bilaterally and rated 5/5, no motor deficits, speech is clear, no peripheral sensory deficits Principal Diagnosis Pulmonary nodule Leukocytosis Acute hyperkalemia Transaminitis Discharge Exam GENERAL: Alert and oriented x3. NAD, on RA. HEENT: No pallor, no icterus. Pupils equal, round and reactive to light. Oral mucosa moist. NECK: No JVD, no neck masses. HEART: S1 and S2 heard. Regular rate and rhythm. No murmur, no gallop. RESPIRATORY SYSTEM: Normal AP diameter. No accessory muscle use. No wheezing, no crackles. ABDOMEN: Soft, bowel sounds present,nontender, no distention. CENTRAL NERVOUS SYSTEM: Alert and oriented x3. No facial droop. Speech is clear. Obeys simple commands. Moves extremities. EXTREMITIES: 1+ BLE edema, no erythema seen. Right elbow with tophaceous gout - no erythema or tenderness. AV fistula noted in LUE -no erythema or tenderness noted. Discharge Data Allergies Allergy/AdvReac Type Severity Reaction Status Date / Time No Known Allergies Allergy NONE Verified 01/10/21 08:13 Consultations 01/10/21 08:07 ED Decision to Admit Stat 01/10/21 08:14 Consult Nephrology Routine 01/10/21 08:15 Consult Pulmonology Routine 01/10/21 08:17 Consult Gastroenterology Routine Ordered Studies 01/10/21 05:11 CT abd pelvis IV con only Urgent 01/10/21 08:36 US liver Routine Hospital Course (1) Pulmonary nodule: (2) Acute hyperkalemia: (3) High transaminase levels: 70-year-old male with PMHx of COPD, diastolic CHF, A. fib, history of right lung mass, ES RD on HD, DM type II, hyperthyroidism with goiter, gout, and chronic tobacco use presented 01/10 with complaints of increasing SOB x 3 weeks [employer], more so in last week despite being on OP doxy and prednisone. He presented 2 days [employer] in the ED when CTA chest was done and was negative for PE, patient was placed on azithromycin and DC'd. Was managed for the following: #. Acute exacerbation of chronic obstructive pulmonary disease (COPD): - Admitted to [facility], influenza and Covid negative - wheezing and cough has improved. - Pulm on board: No indication for steroid, continue inhaler and placed on Anoro as well as as needed DuoNebs. No pulmonology indication of antibiotic. - Continue with nebulization, supportive management. -Continue with levofloxacin to complete the course. #. Pulmonary nodule Admitting CXR:2.7 cm right suprahilar nodular suspicious for lung cancer. CT of the chest was done few days prior to this admission which showed no PE and delineated the nodular lesion. Pulm evaluated the patient while inpatient, patient needs outpatient pulmonology follow-up and work-up of the nodule. #. Leukocytosis Admitting WBC of 21.22K with left shift, admitting pro-Osman 0.97 Admitting CTAP: No acute or infectious process identified. Patient denies headache/dizziness/chest pain/belly pain/any skin wounds/does not make urine/acute changes in bowel habit. Patient does have complaint of cough with yellow sputum, improving. On examination, no open wounds, fistula site was normal without erythema or tenderness. Chest was clear to auscultation and no belly tenderness today. Admitting blood culture negative up to the day of discharge. Patient maintained on Zosyn /---> transition to levofloxacin on the day of discharge. Patient to be discharged on 3 more doses of Levaquin to complete the course. Patient advised to get CBC done in 3 to 5 days upon discharge and have the results forwarded to his PCP. Patient advised to follow-up with PCP/emergency if his cough and sputum worsens or if he develops fevers. #. Transaminitis Patient presented with AST and ALT in the thousands associated with belly pain Admitting ASA and Tylenol level negative. Likely drug-induced in the setting of doxycycline and azithromycin for several days prior to admission per GI. Admitting right upper quadrant ultrasound positive for cholelithiasis only. No hepatic or gallbladder lesions identified. Patient's belly pain has resolved and is tolerating diet well. Hepatitis panel sent, GI consultedacute hepatic panel, CMV, EBV, pantoprazole. LFTs trended down, still high. Outpatient follow-up on LFT needed and close contact with primary care physician needed. Patient advised. #. Electrolyte abnormalities [hyperkalemia, hyperphosphatemia, hypocalcemia] #. ESRD on hemodialysis Patient undergoes dialysis Wednesday, missed dialysis on Wednesday [employer] Electrolyte abnormalities secondary to missed hemodialysis. Currently undergoing hemodialysis, nephrology on board. Patient advised to continue his routine hemodialysis. #. Diastolic CHF, acute on chronic: -History of such, can continue on metoprolol 100 mg am and 50 mg p.m. -Last echo was completed in July 2019, follows with Dr. Peterson as an outpatient, stress EKG showed no signs of ischemia at that point in time. -LV EF of 50 to 54%, normal wall motion, mild aortic regurg, left ventricular hypertrophy noted on resting EKG, patient was unable to complete stress test due to fatigue, exercise capacity below average. Heart rate response to stress was normal. Blood pressure response to exercise was hypertensive -Secondary to missed dialysis -Crackles and BLE fluid has improved with dialysis. #. Elevated troponin: - Trop 0.065 --> 0.108 --> plan trend - EKG was reviewed and appears without acute ischemic changes -Likely demand ischemia #. Chronic medical conditions Resume meds as appropriate. #. Tobacco abuse: -Cessation of smoking encouraged at bedside, acute COPD exacerbation as above -Nicotine patch ordered #. Diabetes: -ISS with [facility] -Last A1c was 6.6 on 12/03/2020 -Glycemic pharmacy consult CODE: Full code Patient is discharged to home with following instruction at the point of discharge: Follow-up with your primary care physician within a week time. Have your blood work CBC/CMP/INR done in 3 days upon discharge and have the results forwarded to your primary care physician. Follow-up with your lung doctor as scheduled for ongoing care of your lung nodule. Continue antibiotics for 5 more days. Get your dialysis as per your routine. You were discharged on antibiotic to be taken after dialysis for 3 subsequent dialysis. Total Time Total Time Spent Total Time Spent (In Minutes): 40 Discharge Plan Discharge Items Patient Disposition: Home - Self-Care Reason For Visit: BELLY PAIN Discharge Diagnosis: Pulmonary nodule Leukocytosis Acute hyperkalemia Transaminitis Activity: Resume your previous activity Non-emergency contact: Primary Care Provider Call non-emergency contact if: you have any medication questions, your symptoms worsen and your temperature is above 101 Follow-up/Referrals: Sabino Murphy MD [Primary Care Provider] - Diet: Carb Consistent or DM2 Addtl Attending Provider Instructions: Follow-up with your primary care physician within a week time. Have your blood work CBC/CMP/INR done in 3 days upon discharge and have the results forwarded to your primary care physician. Follow-up with your lung doctor as scheduled for ongoing care of your lung nodule. Continue antibiotics for 5 more days. Get your dialysis as per your routine. You were discharged on antibiotic to be taken after dialysis for 3 subsequent dialysis. Pending Studies at Discharge: Yes (Admitting blood culture.) Stand-Alone Forms: My [facility] [employer], Smoking Cessation Medications and DC Order Prescriptions: New nicotine 7 mg/24 hr Patch 24 Hour 14 mg transdermal QAM 28 Days Qty: 28 RF: 0 Anoro Ellipta 62.5-25 mcg/actuation Blister With Device 1 inh inhalation DAILY Qty: 60 RF: 0 levofloxacin 500 mg tablet 500 mg PO Q48H 5 Days Qty: 3 RF: 0 Continued albuterol sulfate 2.5 mg /3 mL (0.083 %) solution for nebulization 2.5 mg inhalation DAILY PRN (Reason: Shortness Of Breath) RF: 0 metoprolol tartrate 100 mg tablet 100 mg PO QAM RF: 0 levothyroxine 125 mcg tablet 125 mcg PO QAM RF: 0 albuterol sulfate 90 mcg/actuation HFA aerosol inhaler 2 puff INHALATION Q6H PRN (Reason: Cough) RF: 0 ProRenal 8 mg iron-800 mcg-1,000 unit tablet 1 tab PO TIDM RF: 0 Discontinued prednisone 10 mg tablet 10 mg PO .complex Qty: 31 RF: 0 azithromycin 250 mg tablet See Rx Instructions .ROUTE .COMPLEX Qty: 6 RF: 0 Discharge Orders: Discharge Order (Routine); Ordered 01/12/21 Ordered By: Vince Jacques/Other Patient Handouts: High Blood Sugar (Hyperglycemia), Hypoglycemia (Low Blood Sugar), Managing Type 2 Diabetes Admission Data Admit Date/Time: 01/10/21 08:08 Attending Provider: Vince Dunham Admit Provider: Vince Dunham Primary Care Provider: Sabino Murphy Other Providers: Vince Dunham ; Michael Brown ; Victor Hugo Walker ; Dotty Mayorga Other Interventions: Discharge Summary Assessment (RN) Last Done: 01/12/21 14:08
[2021-01-13 18:00] LABS: SARS CoV2 RNA(COVID-19) InHosp NEGATIVE (Negative)
[2021-01-14 13:32] LABS: CMV IgG Antibody >10.00 U/mL; CMV IgM Antibody <30.00 AU/mL
== END 2021-01-12 15:30 | disposition home or self-care (01) | DRG 190 ==
LOC: ED 03:51 → EDINP 08:08 → 2S 16:00

== ENCOUNTER 2021-02-03 06:11 | Inpatient (IN) ==
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
--- NOTE | 2021-02-03 07:07 | XRay Report ---
XR chest 1V portable CLINICAL HISTORY: Shortness of breath. COMPARISON STUDY: Chest CT January 08, 2021. Chest radiograph February 01, 2021. FINDINGS: Lung volumes are normal. Incidental note is made of an azygos fissure. There are surgical c lips within neck. There is no pneumothorax. There are small bilateral pleural effusions. There is per sistent interstitial pulmonary edema. 2.5 cm right upper lobe nodule is better depicted on chest CT o f January 08, 2021. Cardiomegaly is unchanged. IMPRESSION: 1. No significant change in interstitial pulmonary edema with small bilateral pleural effusions. 2. Redemonstration of a 2.5 cm right upper lobe nodule which is suspicious for malignancy. This is be tter depicted on chest CT of January 08, 2021. ACT 112: Negative or not required by law. Electronically signed by: Jose Hastings M.D. 02/03/2021 7:06 AM
[2021-02-03] MEDS ORDERED: MoRPHine SULFATE 4 MG/ML 1 ML CARP\\VIAL IV STA (08:25)
[2021-02-03 08:34] LABS: Hematocrit (blood only) 28.5 % (42-52); Hemoglobin 9.1 g/dL (14.0-18.0); Mean Corpuscular Hemoglobin 28.7 pg (25-34); Mean Corpuscular Hgb Conc 31.9 g/dL (32-36); Mean Corpuscular Volume 89.9 fL (80-100); Mean Platelet Volume 10.1 fL (7.4-10.4); Platelet Count 425 K/uL (130-400); RDW Coefficient of Variation 16.3 % (11.5-14.5); RDW Standard Deviation 53.6 fL (36.4-46.3); Red Blood Count 3.17 M/uL (4.7-6.1); White Blood Count 23.31 K/uL (4.8-10.8)
[2021-02-03 09:00] LABS: Bilirubin,Total 0.5 mg/dl (0.2-1)
[2021-02-03] MEDS ORDERED: ALUMINUM/MAGNESIUM SUSP 30 ML UDC PO STA (09:04)
[2021-02-03 09:09] LABS: Basophils # (auto) 0.01 K/uL (0-0.2); Immature Granulocytes # (auto) 0.09 K/uL (0.00-0.02); Immature Granulocytes % (auto) 0.4 %; Lymphocytes # (auto) 0.62 K/uL (1.2-3.4); Lymphocytes % (auto) 2.7 %; Monocytes # (auto) 0.78 K/uL (0.11-0.59); Monocytes % (auto) 3.3 %; Neutrophils # (auto) 21.81 K/uL (1.4-6.5); Neutrophils % (auto) 93.6 %
--- NOTE | 2021-02-03 09:14 | CT Scan Report ---
CT abd pelvis wo con CLINICAL HISTORY: diffuse abdominal pain COMPARISON STUDY: 01/10/2021 CT DOSE: 705.72 mGy.cm TECHNIQUE: Standard CT of the Abdomen and Pelvis was performed without IV contrast. The patient did not receive oral contrast. A dose lowering technique was utilized adhering to the principles of EMILIA Andrade. FINDINGS: Lung base: Compared to the previous examination, there are now small bilateral pleural effusions. Th e remainder of the lungs are clear. Abdominal cavity: There is no evidence for abdominal mass, adenopathy or ascites. Liver: The liver is homogeneous in attenuation on these limited noncontrast images.. Spleen: The spleen is homogeneous in attenuation on these limited noncontrast images. Pancreas: The pancreas is homogeneous in attenuation on these limited noncontrast images. Gall Bladder: The gallbladder is well distended with no evidence for cholelithiasis, wall thickening or pericholecystic edema.. Adrenal glands: Compared to previous examination, there is again a stable adrenal adenoma on the left . The right adrenal gland is normal. Kidneys: There is again bilateral renal cortical atrophy. There is no evidence for gross renal mass, calculus or hydronephrosis bilaterally. Bowel: Compared to previous examination, fluid-filled loops of small bowel are seen throughout the ab domen and pelvis without evidence for disproportionate dilatation or obstruction. Findings are most c haracteristic of an ileus versus gastroenteritis. Fecal material seen within the colon evidence for m ild fecal stasis. There is again diverticulosis of the descending and sigmoid colon without evidence for diverticulitis. There are no inflammatory changes present. There is no evidence for free air. The appendix is not visualized. Bladder: There is no evidence for focal bladder wall thickening, calculus or diverticulum. : There is no evidence for pelvic mass or adenopathy. Vasculature: There is no evidence for focal aneurysmal dilatation of the abdominal aorta. Extensive a therosclerotic calcification is again seen. Osseous structures: There is no acute osseous pathology. Mild degenerative changes are present involv ing the lumbar spine. IMPRESSION: 1. Compared to previous study, there are now fluid-filled loops of small bowel throughout the abdomen and pelvis without evidence for disproportionate dilatation or obstruction. The findings are most ch aracteristic of an ileus versus gastroenteritis. 2. There are now small bilateral pleural effusions. 3. There is again mild diverticulosis without evidence for diverticulitis. 4. Additional nonacute findings are delineated above. ACT 112: Negative or not required by law. Electronically signed by: Peter Monson M.D. 02/03/2021 9:13 AM
[2021-02-03] MEDS ORDERED: cefTRIAXone SODIUM 2,000 MG/70 ML BAG IV STA (09:41)
[2021-02-03 09:45] LABS: Alanine Aminotransferase 24 (12-78); Albumin Globulin Ratio 0.7 (0.9-2); Albumin Level 2.8 gm/dl (3.4-5.0); Alkaline Phosphatase 160 U/L (45-117); Aspartate Aminotransferase 22 U/L (15-37); BUN Creatinine Ratio 9.2 (10-20); Blood Urea Nitrogen 58 mg/dl (7-18); Calcium 8.6 mg/dl (8.5-10.1); Carbon Dioxide 25 mmol/L (21-32); Chloride 92 mmol/L (98-107); Est GFR (African American) 9.3 ml/min; Est GFR (Non-African American) 8.1 ml/min; Globulin 4.1 gm/dl (2.5-4.0); Glucose 384 mg/dl (70-99); Magnesium 2.8 mg/dl (1.8-2.4); Potassium 4.9 mmol/L (3.5-5.1); Sodium 130 mmol/L (136-145); Total Protein 6.9 gm/dl (6.4-8.2)
[2021-02-03 10:17] LABS: Beta-Hydroxybutyrate 0.96 mg/dl (0.2-2.81)
[2021-02-03 10:18] LABS: T4 Free Thyroxine 0.66 ng/dl (0.8-1.6)
[2021-02-03 10:56] LABS: Appearance Urine Clear (Clear); Bacteria Urine Automated Negative (Negative); Bilirubin Urine Negative (Negative); Blood Urine 1+ (Negative); Cast Urine Automated 0 /lpf (0-5); Color Urine Yellow; Glucose Urine UA 3+ (Negative); Ketones Urine Trace (Negative); Leukocyte Esterase Urine Negative (Negative); Nitrite Urine Negative (Negative); Protein Urine 3+ (Negative); Urobilinogen Urine Negative (Negative)
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
[2021-02-03] MEDS ORDERED: SODIUM CHLORIDE 0.9% 1000ML 1,000 ML IV PRN (11:55)
[2021-02-03] MEDS ORDERED: HEPARIN SOD (PORCINE) 1000 UNIT/ML IV ONE (11:55)
[2021-02-03] MEDS ORDERED: PATIENT'S HEIGHT AND/OR WEIGHT NEEDED STA (12:08)
[2021-02-03] MEDS ORDERED: EPOETIN ALFA 4,000 UNIT/ML VIAL IV ONE (13:00)
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
--- NOTE | 2021-02-03 13:53 | Electrocardiogram Report ---
Test Reason : Blood Pressure : / mmHG Vent. Rate : 096 BPM Atrial Rate : 096 BPM P-R Int : 162 ms QRS Dur : 096 ms QT Int : 386 ms P-R-T Axes : 043 024 060 degrees QTc Int : 487 ms Normal sinus rhythm When compared with ECG of 01-FEB-2021 20:08, No significant change was found Confirmed by Bhavesh Pan ([id number]) on 02/03/2021 1:53:00 PM Referred By: REFERRED SELF Confirmed By:Jack Pan
[2021-02-03] MEDS ORDERED: CARBOHYDRATES FOR HYPOGLYCEMIA PO PRN (15:30)
[2021-02-03] MEDS ORDERED: GLUCOSE 40% GEL 15 GM TUBE PO PRN (15:30)
[2021-02-03] MEDS ORDERED: GLUCAGON FOR INJ 1 MG VIAL SQ PRN (15:30)
[2021-02-03] MEDS ORDERED: DEXTROSE 50% 50 ML SYRINGE IV PRN (15:30)
[2021-02-03] MEDS ORDERED: GLUCOSE 10 TABS/TUBE PO PRN (15:30)
[2021-02-03] MEDS: HEPARIN SOD (PORCINE) 1000 UNIT/ML IV SCH ×2 (15:56→15:57)
[2021-02-03] MEDS: SEVELAMER HCL 800 MG TABLET PO SCH (19:06)
[2021-02-03] MEDS: INSULIN ASPART PER UNIT SC SCH ×2 (19:06→21:29)
[2021-02-03] MEDS: rOPINIRole HCL 0.25 MG TABLET PO SCH ×2 (19:06→21:34)
[2021-02-03] MEDS ORDERED: CYCLOBENZAPRINE HCL 5 MG TAB PO SCH (21:00)
[2021-02-03] MEDS: NICOTINE 21 MG/24 HR TDSY TD SCH (23:10)
[2021-02-04] MEDS ORDERED: diphenhydrAMINE Capsule 25 MG CAP PO ONE (02:36)
[2021-02-04] MEDS: LEVOTHYROXINE SODIUM 137 MCG TABLET PO SCH (05:47)
[2021-02-04] MEDS ORDERED: LEVOTHYROXINE SODIUM 125 MCG TABLET PO SCH (06:30)
[2021-02-04 07:08] LABS: Basophils # (auto) 0.01 K/uL (0-0.2); Basophils % (auto) 0.1 %; Eosinophils # (auto) 0.04 K/uL (0-0.5); Eosinophils % (auto) 0.3 %; Hematocrit (blood only) 27.8 % (42-52); Hemoglobin 9.1 g/dL (14.0-18.0); Immature Granulocytes # (auto) 0.16 K/uL (0.00-0.02); Immature Granulocytes % (auto) 1.1 %; Lymphocytes # (auto) 2.18 K/uL (1.2-3.4); Lymphocytes % (auto) 15.3 %; Mean Corpuscular Hemoglobin 29.3 pg (25-34); Mean Corpuscular Hgb Conc 32.7 g/dL (32-36); Mean Corpuscular Volume 89.4 fL (80-100); Monocytes # (auto) 1.03 K/uL (0.11-0.59); Monocytes % (auto) 7.2 %; Neutrophils # (auto) 10.84 K/uL (1.4-6.5); Platelet Count 422 K/uL (130-400); RDW Coefficient of Variation 16.9 % (11.5-14.5); RDW Standard Deviation 54.5 fL (36.4-46.3); Red Blood Count 3.11 M/uL (4.7-6.1); White Blood Count 14.26 K/uL (4.8-10.8)
[2021-02-04 07:40] LABS: Albumin Globulin Ratio 0.7 (0.9-2); Albumin Level 2.7 gm/dl (3.4-5.0); BUN Creatinine Ratio 9.7 (10-20); Bilirubin,Total 0.5 mg/dl (0.2-1); Calcium 8.3 mg/dl (8.5-10.1); Creatinine Clr Calc Pharmacy 13.1 ml/min; Est GFR (African American) 11.4 ml/min; Est GFR (Non-African American) 9.8 ml/min; Globulin 3.8 gm/dl (2.5-4.0); Potassium 4.9 mmol/L (3.5-5.1); Total Protein 6.5 gm/dl (6.4-8.2)
[2021-02-04] MEDS: METOPROLOL TARTRATE 100 MG TAB PO SCH (08:35)
[2021-02-04] MEDS: SEVELAMER HCL 800 MG TABLET PO SCH ×3 (08:35→17:19)
[2021-02-04] MEDS: NICOTINE 21 MG/24 HR TDSY TD SCH (08:35)
[2021-02-04] MEDS: rOPINIRole HCL 0.25 MG TABLET PO SCH (08:35)
[2021-02-04] MEDS: INSULIN ASPART PER UNIT SC SCH ×4 (08:36→21:16)
[2021-02-04] MEDS: UMECLIDINIUM/VILANTEROL 62.5/25MCG 7 PUFFS/INHALER INH SCH (08:36)
[2021-02-04] MEDS: cefTRIAXone SODIUM 2,000 MG in DEXTROSE 5% 50 ML IV SCH (08:47)
[2021-02-04] MEDS ORDERED: cefTRIAXone SODIUM 1,000 MG in DEXTROSE 5% 50 ML IV SCH (09:00)
--- NOTE | 2021-02-04 10:13 | Dialysis Progress Note ---
Date of Service February 04, 2021 Assessment & Plan Admission and Anticipated Discharge Date Admission Date: February 03, 2021 Subjective S---Seen during Dialysis. So far doing fine. NO cramp yet PHYSICAL EXAMINATION: GENERAL: Elderly white male who does have some respiratory distress. HEENT: Mucous membranes are moist. NECK: Supple. No jugular venous distention. CHEST: Bilateral occasional crackles and some diminished breath sounds. CARDIOVASCULAR: S1 and S2 regular, tachycardic. Soft systolic murmur heard. ABDOMEN: Soft, nontender. EXTREMITIES: Show 2+ edema. LABORATORY TEST: Labs this AM reviewed. ASSESSMENT AND PLAN: A 70-year-old male with multiple medical problems including end-stage renal disease on dialysis. Now admitted with worsening edema and shortness of breath. End-stage renal disease: His biggest problem is very high interdialytic weight gain where he routinely gains 5-6 kilos in between dialysis time, but we can only take 3 kilos of fluid off. As a result, he is having increasing fluid retention with pulmonary edema and lower extremity edema. I do not believe he needs to be on steroids as I think that is making his fluid retention problem even worse and I would recommend stopping or using very low dose. I also do not believe we need to continue this antibiotic for presumed cellulitis. We will try to do dialysis on a daily basis and gradually take fluid off. Strict fluid restriction of 1200 mL per day, salt restriction less than 2 grams per day. He gets cramp easily with dialysis and this has been the biggest problem, so we will use empiric treatment for dialysis related cramp. We will use Requip 0.25 mg 3 times a day and then transition to once daily. We will also use Flexeril as a muscle relaxant. It is worth noting both of this treatment are empiric and will only continue if it helps Rec: 1 Dialysis daily today wed and ---3hrs 3k and take 3 kilo each day 2 Flexeril 10 HS and requip 1 mg Daily--empiric for cramp . Results & Data ([facility]) Vital Signs (Past 12 Hours) Vital Signs Temp Pulse Pulse Resp BP BP Pulse Ox 02/04/21 09:40 79 128/77 02/04/21 09:28 79 129/75 02/04/21 09:20 36.6 C 85 02/04/21 08:00 36.9 C 97 H 102 H 18 146/62 H 95 02/04/21 03:03 36.6 C 102 H 19 151/75 H 95 02/03/21 23:14 37.0 C 104 H 18 141/69 H 93 02/03/21 22:20 100 H
--- NOTE | 2021-02-04 17:40 | Hospitalist Progress Note ---
Date of Service February 04, 2021 Assessment & Plan (1) Fluid overload: (2) Chronic kidney disease with end stage renal failure on dialysis: Plan: Progressive fluid overload Car [employer] chayito noted: plan for daily HD initially while admitted Monitor I's and O's Daily weights Daily labs Renal diet with fluid restriction (3) SIRS (systemic inflammatory response syndrome): (4) Cellulitis of right lower extremity: Plan: Possibly due to RLE cellulitis Eevated WBCs may also be in part due to recent prednisone. Continue rocephine Blooc cultures negative (5) Postoperative hypothyroidism: Plan: Elevated TSH and low T4 on admission labs - [facility] chart reviewed and it appears levothyroxine last adjusted before June 2020. Increase levothyroxine to 137.5 mcg daily Repeat TSH as outpatient in 6 weeks (6) Pulmonary nodule: Plan: Scheduled for outpatient CT-guided biopsy in February - PET scan suspicious for malignancy (7) Type 2 diabetes mellitus: Plan: A1c 12/04/20 was 6.6 as outpatient - pt reports multiple courses of prednisone as outpatient for underlying COPD. On diabetic diet, insulin sliding scale, accuchecks (8) COPD (chronic obstructive pulmonary disease): Plan: Continue Enoro and prn nebs (9) Essential hypertension: Plan: Continue metoprolol in the mornings, pt reports no longer taking the evening dose Plan: DVT ppx - hep sq Admission and Anticipated Discharge Date Admission Date: February 03, 2021 Subjective Patient seen and examined after hemodialysis. Reported some leg cramps towards the end of dialysis. Still has leg swelling Reports chronic cough Denies any chest pain, palpitation, shortness of breath Denies nausea, vomiting, abdominal pain, diarrhea Denies fevers or chills Physical Exam Constitutional: + well hydrated; no acute distress Eyes: PERRL, conjunctivae normal, anicteric sclerae ENMT: external ear and nose normal, oropharynx normal Respiratory: normal respiratory effort, lungs clear to auscultation Cardiovascular: Rate/Rhythm: regular rate and regular rhythm S1 S2 Gastrointestinal (Abdomen): normal bowel sounds, soft, nontender, no hepatosplenomegaly Musculoskeletal: Leg edema RLE erythema. Mild tenderness Neurologic: PERRL, EOMI, accommodation nl, no face palsy, no dysarthria Psychiatric: A+Ox3, euthymic affect Results & Data Results & Data ([place]) Vital Signs (Past 12 Hours) Vital Signs Temp Pulse Pulse Resp BP BP Pulse Ox 02/04/21 16:55 78 02/04/21 15:48 37.0 C 92 H 20 145/72 H 98 02/04/21 13:46 28 H 98 02/04/21 13:39 96 H 24 128/77 94 02/04/21 12:30 36.7 C 80 103/84 02/04/21 12:20 54 L 87/42 L 02/04/21 12:00 85 132/75 02/04/21 11:40 75 116/67 02/04/21 11:20 76 115/70 02/04/21 11:00 76 119/75 02/04/21 10:40 75 128/74 02/04/21 10:20 78 129/72 02/04/21 10:00 77 126/78 02/04/21 09:40 79 128/77 02/04/21 09:28 79 129/75 02/04/21 09:20 36.6 C 85 02/04/21 08:00 36.9 C 97 H 102 H 18 146/62 H 95 Laboratory Results Abnormal lab results 02/03/21 02/03/21 02/04/21 Range/Units 20:22 20:39 06:45 WBC 14.26 H (4.8-10.8) K/uL RBC 3.11 L (4.7-6.1) M/uL Hgb 9.1 L (14.0-18.0) g/dL Hct 27.8 L (42-52) % RDW Std Deviation 54.5 H (36.4-46.3) fL RDW Coeff of Shaylee 16.9 H (11.5-14.5) % Plt Count 422 H (130-400) K/uL Neut # (Auto) 10.84 H (1.4-6.5) K/uL [place] # (Auto) 1.03 H (0.11-0.59) K/uL Immature Gran # (Auto) 0.16 H (0.00-0.02) K/uL Sodium (136-145) mmol/L BUN (7-18) mg/dl Creatinine (0.6-1.4) mg/dl BUN/Creatinine Ratio (10-20) Glucose (70-99) mg/dl POC Glucose 211 H (70-99) mg/dl Calcium (8.5-10.1) mg/dl Troponin I 1.360 H* (0-0.045) ng/ml Albumin (3.4-5.0) gm/dl Albumin/Globulin Ratio (0.9-2) 02/04/21 02/04/21 02/04/21 Range/Units 06:45 07:32 13:22 WBC (4.8-10.8) K/uL RBC (4.7-6.1) M/uL Hgb (14.0-18.0) g/dL Hct (42-52) % RDW Std Deviation (36.4-46.3) fL RDW Coeff of Shaylee (11.5-14.5) % Plt Count (130-400) K/uL Neut # (Auto) (1.4-6.5) K/uL [place] # (Auto) (0.11-0.59) K/uL Immature Gran # (Auto) (0.00-0.02) K/uL Sodium 134 L (136-145) mmol/L BUN 52 H (7-18) mg/dl Creatinine 5.39 H* D (0.6-1.4) mg/dl BUN/Creatinine Ratio 9.7 L (10-20) Glucose 172 H (70-99) mg/dl POC Glucose 168 H 63 L* (70-99) mg/dl Calcium 8.3 L (8.5-10.1) mg/dl Troponin I (0-0.045) ng/ml Albumin 2.7 L (3.4-5.0) gm/dl Albumin/Globulin Ratio 0.7 L (0.9-2) (1) COPD (chronic obstructive pulmonary disease) COPD type: unspecified COPD Qualified Code(s): J44.9 - Chronic obstructive pulmonary disease, unspecified (2) Fluid overload Hypervolemia type: unspecified Qualified Code(s): E87.70 - Fluid overload, unspecified
--- NOTE | 2021-02-04 17:49 | Electrocardiogram Report ---
Test Reason : Blood Pressure : / mmHG Vent. Rate : 098 BPM Atrial Rate : 098 BPM P-R Int : 168 ms QRS Dur : 090 ms QT Int : 380 ms P-R-T Axes : 053 030 056 degrees QTc Int : 485 ms Normal sinus rhythm Poor R wave progression, consider anterior LA vs. lead placement vs. LVH Possible Inferior infarct , age undetermined Abnormal ECG When compared with ECG of 03-FEB-2021 07:01, No significant change was found Confirmed by Bhavesh Pan ([id number]) on 02/04/2021 5:49:01 PM Referred By: REFERRED SELF Confirmed By:Jack Pan
[2021-02-04] MEDS: ALBUTEROL 0.083% NEBU SOLN 3 ML VIAL INH PRN (17:52)
[2021-02-04] MEDS: HEPARIN SOD 5,000 UNIT/0.5 ML VIAL SQ SCH (21:10)
[2021-02-04] MEDS: CYCLOBENZAPRINE HCL 10 MG TAB PO SCH (21:17)
[2021-02-05] MEDS: ALBUTEROL 0.083% NEBU SOLN 3 ML VIAL INH PRN ×2 (04:25→14:34)
[2021-02-05] MEDS: LEVOTHYROXINE SODIUM 137 MCG TABLET PO SCH (05:57)
[2021-02-05] MEDS: HEPARIN SOD 5,000 UNIT/0.5 ML VIAL SQ SCH ×3 (05:57→20:28)
[2021-02-05 06:42] LABS: Basophils # (auto) 0.02 K/uL (0-0.2); Basophils % (auto) 0.2 %; Eosinophils # (auto) 0.23 K/uL (0-0.5); Hematocrit (blood only) 30.1 % (42-52); Hemoglobin 9.5 g/dL (14.0-18.0); Immature Granulocytes % (auto) 0.9 %; Lymphocytes # (auto) 2.24 K/uL (1.2-3.4); Lymphocytes % (auto) 19.1 %; Mean Corpuscular Hemoglobin 28.8 pg (25-34); Mean Corpuscular Hgb Conc 31.6 g/dL (32-36); Mean Corpuscular Volume 91.2 fL (80-100); Mean Platelet Volume 10.4 fL (7.4-10.4); Monocytes # (auto) 1.37 K/uL (0.11-0.59); Monocytes % (auto) 11.7 %; Neutrophils # (auto) 7.74 K/uL (1.4-6.5); Neutrophils % (auto) 66.1 %; Platelet Count 415 K/uL (130-400); RDW Coefficient of Variation 17.2 % (11.5-14.5); RDW Standard Deviation 56.7 fL (36.4-46.3)
[2021-02-05 07:06] LABS: Albumin Globulin Ratio 0.7 (0.9-2); Albumin Level 2.6 gm/dl (3.4-5.0); BUN Creatinine Ratio 9.3 (10-20); Calcium 7.8 mg/dl (8.5-10.1); Creatinine Clr Calc Pharmacy 14.5 ml/min; Est GFR (African American) 12.9 ml/min; Est GFR (Non-African American) 11.1 ml/min; Globulin 3.7 gm/dl (2.5-4.0); Total Protein 6.3 gm/dl (6.4-8.2)
[2021-02-05] MEDS: cefTRIAXone SODIUM 2,000 MG in DEXTROSE 5% 50 ML IV SCH (08:18)
[2021-02-05] MEDS: rOPINIRole HCL 1 MG TABLET PO SCH (08:19)
[2021-02-05] MEDS: METOPROLOL TARTRATE 100 MG TAB PO SCH (08:19)
[2021-02-05] MEDS: SEVELAMER HCL 800 MG TABLET PO SCH ×3 (08:19→17:22)
[2021-02-05] MEDS: UMECLIDINIUM/VILANTEROL 62.5/25MCG 7 PUFFS/INHALER INH SCH (08:20)
[2021-02-05] MEDS: NICOTINE 21 MG/24 HR TDSY TD SCH (08:21)
[2021-02-05] MEDS: INSULIN ASPART PER UNIT SC SCH ×4 (08:21→20:28)
[2021-02-05] MEDS ORDERED: diphenhydrAMINE Capsule 25 MG CAP PO ONE (09:15)
[2021-02-05] MEDS ORDERED: diphenhydrAMINE Capsule 25 MG CAP ONE (09:18)
[2021-02-05 09:22] LABS: Bilirubin,Total 0.5 mg/dl (0.2-1)
--- NOTE | 2021-02-05 10:41 | Dialysis Progress Note ---
Date of Service February 05, 2021 Assessment & Plan Admission and Anticipated Discharge Date Admission Date: February 03, 2021 Subjective Subjective S---Seen during Dialysis. So far doing fine. No cramp yet. Somewhat less edema now. PHYSICAL EXAMINATION: GENERAL: Elderly white male who does have some respiratory distress. HEENT: Mucous membranes are moist. NECK: Supple. No jugular venous distention. CHEST: Bilateral occasional crackles and some diminished breath sounds. CARDIOVASCULAR: S1 and S2 regular, tachycardic. Soft systolic murmur heard. ABDOMEN: Soft, nontender. EXTREMITIES: Show 1+ edema. LABORATORY TEST: Labs this AM reviewed. ASSESSMENT AND PLAN: A 70-year-old male with multiple medical problems including end-stage renal disease on dialysis. Now admitted with worsening edema and shortness of breath. End-stage renal disease: His biggest problem is very high interdialytic weight gain where he routinely gains 5-6 kilos in between dialysis time, but we can only take 3 kilos of fluid off. As a result, he is having increasing fluid retention with pulmonary edema and lower extremity edema. I do not believe he needs to be on steroids as I think that is making his fluid retention problem even worse and I would recommend stopping or using very low dose. I also do not believe we need to continue this antibiotic for presumed cellulitis. We will try to do dialysis on a daily basis and gradually take fluid off. Strict fluid restriction of 1200 mL per day, salt restriction less than 2 grams per day. He gets cramp easily with dialysis and this has been the biggest problem, so we will use empiric treatment for dialysis related cramp. We will use Requip 0.25 mg 3 times a day and then transition to once daily. We will also use Flexeril as a muscle relaxant. It is worth noting both of this treatment are empiric and will only continue if it helps Rec: 1 Dialysis daily today and ---3hrs 2k and take 3 kilo each day 2 Flexeril 10 HS and requip 1 mg Daily--empiric for cramp. . Results & Data ([facility]) Vital Signs (Past 12 Hours) Vital Signs Temp Pulse Pulse Resp BP Pulse Ox 02/05/21 07:44 36.6 C 87 17 160/79 H 94 02/05/21 07:00 94 H 02/05/21 04:25 90 24 96 02/05/21 03:00 36.6 C 86 18 165/89 H 94 02/04/21 22:59 36.6 C 84 20 134/63 94
[2021-02-05] MEDS: CYCLOBENZAPRINE HCL 10 MG TAB PO SCH (20:27)
--- NOTE | 2021-02-05 20:59 | Hospitalist Progress Note ---
Date of Service February 05, 2021 Assessment & Plan (1) Fluid overload: (2) Cellulitis: Plan: (1) Fluid overload: (2) Chronic kidney disease with end stage renal failure on dialysis: Plan: Progressive fluid overload due to very high intradialytic weight gain where he routinely gains 5 to 6 kilos in between dialysis time per nephrology. But 3 kilos can only be taken off. Sales And Training Specialist chayito noted: plan for daily HD initially while admitted Monitor I's and O's Daily weights Daily labs Low-sodium diet [less than 2 g sodium per day] with fluid restriction of 12 1 mL/day. (3) SIRS (systemic inflammatory response syndrome): resolved (4) Cellulitis of right lower extremity: Plan: Possibly due to RLE cellulitis Eevated WBCs may also be in part due to recent prednisone. Continue rocephine Blood cultures negative so far (5) Postoperative hypothyroidism: Plan: Elevated TSH and low T4 on admission labs - Per prior attending: [facility] chart reviewed and it appears levothyroxine last adjusted before June 2020. Increase levothyroxine to 137.5 mcg daily Repeat TSH as outpatient in 6 weeks (6) Pulmonary nodule: Plan: Scheduled for outpatient CT-guided biopsy in February - PET scan suspicious for malignancy (7) Type 2 diabetes mellitus: Plan: A1c 12/04/20 was 6.6 as outpatient - pt reports multiple courses of prednisone as outpatient for underlying COPD. On diabetic diet, insulin sliding scale, accuchecks (8) COPD (chronic obstructive pulmonary disease): Plan: Continue Enoro and prn nebs (9) Essential hypertension: Plan: Continue metoprolol in the mornings, pt reports no longer taking the evening dose Plan: DVT ppx - hep sq Disposition: Patient desires to be discharged on Wednesday, will coordinate with nephrology for possible discharge time. Currently undergoing daily dialysis per nephrology. Admission and Anticipated Discharge Date Admission Date: February 03, 2021 Subjective Patient was lying in bed, room air, NAD, no new acute events overnight. Patient seemed a bit irritated to talk to and seemed not very open to discussion at bedside. He was ticklish and denied examination of his lower extremity. Patient just came from his dialysis, 3 L out, denied any fever/chills/headache/chest pain/palpitation/other review of symptoms. Physical Exam Physical Exam: GENERAL: Alert and oriented x3. NAD, on RA. Ticklish HEENT: No pallor, no icterus. Pupils equal, round and reactive to light. Oral mucosa moist. NECK: No JVD, no neck masses. HEART: S1 and S2 heard. Regular rate and rhythm. No murmur, no gallop. RESPIRATORY SYSTEM: Normal AP diameter. No accessory muscle use. No wheezing, no crackles. ABDOMEN: Soft, bowel sounds present, nontender, no distention. CENTRAL NERVOUS SYSTEM: No facial droop. Speech is clear. Obeys simple commands. Moves extremities. EXTREMITIES: denied BLE exam Results & Data Results & Data ([facility]) Vital Signs (Past 12 Hours) Vital Signs Temp Pulse Pulse Resp BP BP Pulse Ox 02/05/21 19:33 36.8 C 74 18 156/79 H 96 02/05/21 16:30 36.8 C 78 18 136/78 95 02/05/21 15:00 85 02/05/21 14:34 71 18 93 02/05/21 12:45 37.1 C 72 152/72 H 02/05/21 12:35 78 154/76 H 02/05/21 12:20 78 136/86 02/05/21 12:00 79 146/78 H 02/05/21 11:40 81 143/74 H 02/05/21 11:20 80 150/76 H 02/05/21 11:00 77 133/71 02/05/21 10:40 80 147/74 H 02/05/21 10:20 77 137/92 02/05/21 10:00 77 131/67 02/05/21 09:36 78 135/74 02/05/21 09:27 36.6 C 82 (1) Fluid overload Hypervolemia type: unspecified Qualified Code(s): E87.70 - Fluid overload, unspecified
[2021-02-06] MEDS: LEVOTHYROXINE SODIUM 137 MCG TABLET PO SCH (05:59)
[2021-02-06] MEDS: HEPARIN SOD 5,000 UNIT/0.5 ML VIAL SQ SCH ×2 (06:00→14:08)
[2021-02-06] MEDS ORDERED: HEPARIN SOD (PORCINE) 1000 UNIT/ML IV ONE (07:00)
[2021-02-06] MEDS ORDERED: EPOETIN ALFA 4,000 UNIT/ML VIAL IV SCH (07:00)
[2021-02-06] MEDS ORDERED: SODIUM CHLORIDE 0.9% 1000ML 1,000 ML IV PRN (07:00)
[2021-02-06] MEDS: ALBUTEROL 0.083% NEBU SOLN 3 ML VIAL INH PRN (07:10)
[2021-02-06 07:56] VITALS: O2SAT 98
[2021-02-06] MEDS: rOPINIRole HCL 1 MG TABLET PO SCH (08:15)
[2021-02-06] MEDS: SEVELAMER HCL 800 MG TABLET PO SCH ×2 (08:15→14:07)
[2021-02-06] MEDS: cefTRIAXone SODIUM 2,000 MG in DEXTROSE 5% 50 ML IV SCH (08:16)
[2021-02-06] MEDS: UMECLIDINIUM/VILANTEROL 62.5/25MCG 7 PUFFS/INHALER INH SCH (08:16)
[2021-02-06] MEDS: METOPROLOL TARTRATE 100 MG TAB PO SCH (08:16)
[2021-02-06] MEDS: NICOTINE 21 MG/24 HR TDSY TD SCH (08:16)
[2021-02-06] MEDS: INSULIN ASPART PER UNIT SC SCH ×2 (08:19→14:07)
[2021-02-06 08:28] LABS: Basophils # (auto) 0.03 K/uL (0-0.2); Basophils % (auto) 0.3 %; Eosinophils # (auto) 0.24 K/uL (0-0.5); Eosinophils % (auto) 2.6 %; Hematocrit (blood only) 31.1 % (42-52); Hemoglobin 9.8 g/dL (14.0-18.0); Immature Granulocytes # (auto) 0.13 K/uL (0.00-0.02); Immature Granulocytes % (auto) 1.4 %; Lymphocytes # (auto) 2.39 K/uL (1.2-3.4); Lymphocytes % (auto) 25.5 %; Mean Corpuscular Hemoglobin 28.7 pg (25-34); Mean Corpuscular Hgb Conc 31.5 g/dL (32-36); Mean Corpuscular Volume 90.9 fL (80-100); Mean Platelet Volume 10.5 fL (7.4-10.4); Monocytes # (auto) 0.96 K/uL (0.11-0.59); Monocytes % (auto) 10.2 %; Neutrophils # (auto) 5.63 K/uL (1.4-6.5); Platelet Count 358 K/uL (130-400); RDW Coefficient of Variation 16.9 % (11.5-14.5); RDW Standard Deviation 55.1 fL (36.4-46.3); Red Blood Count 3.42 M/uL (4.7-6.1); White Blood Count 9.38 K/uL (4.8-10.8)
[2021-02-06 08:56] LABS: Albumin Level 2.7 gm/dl (3.4-5.0); BUN Creatinine Ratio 8.3 (10-20); Calcium 7.9 mg/dl (8.5-10.1); Creatinine Clr Calc Pharmacy 15.5 ml/min; Est GFR (African American) 14.3 ml/min; Est GFR (Non-African American) 12.4 ml/min; Potassium 5.1 mmol/L (3.5-5.1)
[2021-02-06 08:57] LABS: Albumin Globulin Ratio 0.8 (0.9-2); Bilirubin,Total 0.6 mg/dl (0.2-1); Globulin 3.6 gm/dl (2.5-4.0); Total Protein 6.3 gm/dl (6.4-8.2)
[2021-02-06] MEDS: HEPARIN SOD (PORCINE) 1000 UNIT/ML IV SCH ×2 (14:07→15:07)
[2021-02-06] MEDS ORDERED: ADVANCED PROBIOTIC 1250 MG CAPSULE PO SCH (14:45)
[2021-02-06 15:16] VITALS: BP 162/91; PULSE 82; TEMP 98.1
--- NOTE | 2021-02-06 19:36 | Discharge Summary ---
Date of Service February 06, 2021 Admission HPI Per Admitting Provider This is a 70-year-old male with PMHx of COPD, diastolic CHF, A. fib, history of right lung mass, ESRD on HD, hyperglycemia, hyperthyroidism with goiter s/p thyroidectomy, gout, and chronic tobacco use who presented to the ED today from dialysis with severe leg cramps and pain. Pt reports ongoing issues with these leg pains when he is on dialysis, but they usually do not start until about three hours into treatment. These may limit his ability to complete the full treatment at times. Today, the pains started about 30 minutes into treatment. Pt also reports worsening issues with fluid overload described as progressive peripheral edema and worsening dyspnea on exertion. Pt was admitted to this facility 01/10-01/12/21 with COPD exacerbation, leukocytosis, and presumed drug- induced hepatitis. He was treated with Zosyn that was transitioned to Levaquin, which he completed outpatient. Since discharge, he has been seen in the ED on 01/16, 01/18, 01/21, and 02/01 for varying complaints including abdominal pain, LE swelling (right > left), shortness of breath and fluid overload. Of note, he was giving a short burst of prednisone on 01/18, which he reports he is still taking and is why his sugar is elevated. He denies diagnosis of diabetes and is very frustrated that this remains on his chart. When seen 01/21, he was diagnosed with possible RLE cellulitis and given a course of cephalexin, which has resulted in significant improvement in the RLE redness and some of the swelling. He was seen by his PCP office outpatient on 01/29 and given a dose of Rocephin, prescribed doxycycline for cellulitis. He never started the doxycycline since he was concerned that this caused the prior abd pain and elevated LFTs earlier this month. Pt also has a CT-guided biopsy of the RUL suspicious nodule scheduled for 02/11/21 in [place]. Admission Exam Per Admitting Provider Constitutional: well developed and well nourished; no acute distress Eyes: + anicteric sclerae Neck: trachea midline Respiratory: no respiratory distress and no labored breathing Auscultation: + diminished lung sounds, + crackles (bibasilar) and + wheezes (faint expiratory) Cardiovascular: Rate/Rhythm: regular rate and regular rhythm Gastrointestinal (Abdomen): Inspection/Auscultation: + abdomen distended and normal bowel sounds Percussion/Palpation: abdomen soft; abdomen nontender Musculoskeletal: Head/Neck/Chest: normocephalic, head atraumatic and neck supple Skin: chronic vascular changes bilateral LE - few scabbed areas right > left LE Erythema and tenderness over left leg Neurologic: moves all extremities; not confused Psychiatric: A+Ox3, euthymic affect Principal Diagnosis Progressive fluid overload due to very high intradialytic weight gain RLE cellulitis ESRD on HD Discharge Exam GENERAL: Alert and oriented x3. NAD, on RA. Ticklish HEENT: No pallor, no icterus. Pupils equal, round and reactive to light. Oral mucosa moist. NECK: No JVD, no neck masses. HEART: S1 and S2 heard. Regular rate and rhythm. No murmur, no gallop. RESPIRATORY SYSTEM: Normal AP diameter. No accessory muscle use. No wheezing, no crackles. ABDOMEN: Soft, bowel sounds present, nontender, no distention. CENTRAL NERVOUS SYSTEM: No facial droop. Speech is clear. Obeys simple commands. Moves extremities. EXTREMITIES: denied BLE exam Discharge Data Allergies Allergy/AdvReac Type Severity Reaction Status Date / Time No Known Allergies Allergy NONE Verified 02/03/21 07:43 Consultations 02/03/21 09:41 ED Decision to Admit Stat 02/03/21 11:32 Consult Nephrology Routine Ordered Studies 02/03/21 08:25 CT abd pelvis wo con Stat Hospital Course (1) Fluid overload: (2) Cellulitis: 70-year-old male with PMHx of COPD, diastolic CHF, A. fib, history of right lung mass, ESRD on HD, hyperglycemia, hyperthyroidism with goiter s/p thyroidectomy, gout, and chronic tobacco use who presented 02/03 to the ED from dialysis with severe leg cramps and pain. He was found to have fluid overload and RLE cellulitis. He was managed for the following: (1) Fluid overload: (2) Chronic kidney disease with end stage renal failure on dialysis: Plan: Progressive fluid overload due to very high intradialytic weight gain where he routinely gains 5 to 6 kilos in between dialysis time per nephrology. But 3 kilos can only be taken off. Components Engineer chayito noted: plan for daily HD initially while admitted Patient to continue with his outpatient dialysis regimen upon discharge. Low-sodium diet [less than 2 g sodium per day] with fluid restriction of 12 1 mL/day. (3) SIRS (systemic inflammatory response syndrome): resolved (4) Cellulitis of right lower extremity: Plan: Possibly due to RLE cellulitis Eevated WBCs may also be in part due to recent prednisone. Rocephin changed to Keflex upon discharge. (5) Postoperative hypothyroidism: Plan: Elevated TSH and low T4 on admission labs - Per prior attending: [facility] chart reviewed and it appears levothyroxine last adjusted before June 2020. Increase levothyroxine to 137.5 mcg daily Repeat TSH as outpatient in 6 weeks (6) Pulmonary nodule: Plan: Scheduled for outpatient CT-guided biopsy in February - PET scan suspicious for malignancy (7) Type 2 diabetes mellitus: Plan: A1c 12/04/20 was 6.6 as outpatient - pt reports multiple courses of prednisone as outpatient for underlying COPD. On diabetic diet, insulin sliding scale, accuchecks (8) COPD (chronic obstructive pulmonary disease): Plan: Continue Enoro and prn nebs (9) Essential hypertension: Plan: Continue metoprolol in the mornings, pt reports no longer taking the evening dose Plan: DVT ppx - hep sq Patient being discharged home with following instruction at the point of discharge: Follow-up with your primary care physician within a week time. Follow-up with your dialysis center [facility] on [facility] as per your prior schedule. You will need your dialysis tomorrow as well. Encourage adherence with low-sodium and dialysis renal diet with fluid restriction to 1200 mL/day. Take medications as prescribed. Repeat TSH in 6 weeks. F/u scheduled OP CT guided biopsy of pul nodule. Total Time Total Time Spent Total Time Spent (In Minutes): 40 Discharge Plan Discharge Items Patient Disposition: Home - Self-Care Reason For Visit: FLUID OVERFLOW Discharge Diagnosis: Fluid overload ESRD on HD RLE cellulitis Activity: Resume your previous activity Non-emergency contact: Primary Care Provider Call non-emergency contact if: you have any medication questions, your symptoms worsen, your pain is not controlled, your temperature is above 101 and your wound pain has increased Follow-up/Referrals: Sabino Murphy MD [Primary Care Provider] - 02/13/21 3:00 pm (Date & Time 02/13/2021 3:00 PM Provider Sabino Murphy MD Department [facility] ) Diet: Carb Consistent or DM2, Dialysis Renal and Low Sodium (2gm) Fluids: 1200ml (5 cups) Addtl Attending Provider Instructions: Follow-up with your primary care physician within a week time. Follow-up with your dialysis center [facility] on MWF as per your prior schedule. You will need your dialysis tomorrow as well. Encourage adherence with low-sodium and dialysis renal diet with fluid restriction to 1200 mL/day. Take medications as prescribed. Pending Studies at Discharge: No Stand-Alone Forms: My [facility] [employer], Smoking Cessation Medications and DC Order Prescriptions: New nicotine [Nicoderm CQ] 21 mg/24 hr Patch 24 Hour 21 mg transdermal DAILY Qty: 28 RF: 0 cyclobenzaprine 10 mg Tablet 10 mg PO HS Qty: 30 RF: 0 ropinirole 1 mg Tablet 1 mg PO DAILY Qty: 30 RF: 0 cephalexin 500 mg capsule 500 mg PO BID 7 Days Qty: 14 RF: 0 Continued albuterol sulfate 2.5 mg /3 mL (0.083 %) solution for nebulization 2.5 mg inhalation Q6 PRN (Reason: Shortness Of Breath) RF: 0 Anoro Ellipta 62.5-25 mcg/actuation Blister With Device 1 inh inhalation DAILY Qty: 60 RF: 0 sildenafil 100 mg Tablet 100 mg PO DAILY PRN (Reason: erectile dysfuntion) RF: 0 benzonatate 100 mg Capsule 100 mg PO TID PRN (Reason: Cough) RF: 0 ondansetron 4 mg tablet,disintegrating 4 mg PO Q8 PRN (Reason: Nausea) RF: 0 hydroxyzine HCl 25 mg tablet 25 - 50 mg PO HS PRN (Reason: anxiety) RF: 0 metoprolol tartrate 100 mg tablet 100 mg PO QAM RF: 0 levothyroxine 125 mcg tablet 125 mcg PO QAM RF: 0 albuterol sulfate 90 mcg/actuation HFA aerosol inhaler 2 puff INHALATION Q6H PRN (Reason: Cough) RF: 0 sevelamer carbonate 800 mg tablet 2,400 mg PO TIDM RF: 0 Discharge Orders: Discharge Order (Routine); Ordered 02/06/21 Ordered By: Vince Jacques/Other Patient Handouts: A1C, Managing Type 2 Diabetes Admission Data Admit Date/Time: 02/03/21 11:32 Attending Provider: Vince Dunham Admit Provider: Cara Mata I. Primary Care Provider: Sabino Murphy Other Providers: Cara Mata I. ; Michael Brown Other Interventions: Discharge Summary Assessment (RN) Last Done: 02/06/21 15:24
== END 2021-02-06 15:42 | disposition home or self-care (01) | DRG 640 ==
LOC: ED 06:11 → SUATTDRO 11:32 → EDINP 11:32 → 2S 14:30

== ENCOUNTER 2021-02-13 16:11 | Inpatient (IN) ==
[2021-02-13 17:24] LABS: Basophils # (auto) 0.03 K/uL (0-0.2); Basophils % (auto) 0.2 %; Eosinophils % (auto) 0.7 %; Hematocrit (blood only) 35.3 % (42-52); Hemoglobin 10.9 g/dL (14.0-18.0); Immature Granulocytes # (auto) 0.09 K/uL (0.00-0.02); Immature Granulocytes % (auto) 0.7 %; Lymphocytes # (auto) 1.09 K/uL (1.2-3.4); Mean Corpuscular Hemoglobin 29.1 pg (25-34); Mean Corpuscular Hgb Conc 30.9 g/dL (32-36); Mean Corpuscular Volume 94.4 fL (80-100); Monocytes # (auto) 0.92 K/uL (0.11-0.59); Monocytes % (auto) 6.7 %; Neutrophils # (auto) 11.48 K/uL (1.4-6.5); Neutrophils % (auto) 83.7 %; Platelet Count 308 K/uL (130-400); RDW Coefficient of Variation 18.7 % (11.5-14.5); Red Blood Count 3.74 M/uL (4.7-6.1); White Blood Count 13.71 K/uL (4.8-10.8)
[2021-02-13] MEDS ORDERED: ALBUT/IPRATROP 3MG/0.5MG NEB 3 ML VIAL NEB STA (17:33)
[2021-02-13 17:37] LABS: INR 1.1 (0.9-1.1); Partial Thromboplastin Ratio 1.1; Partial Thromboplastin Time 28.9 Seconds (21.0-31.0); Prothrombin Time 10.9 Seconds (9.0-12.0)
[2021-02-13] MEDS ORDERED: SODIUM CHLORIDE 0.9% 1000ML 500 ML IV ONE (17:37)
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
--- NOTE | 2021-02-13 17:44 | XRay Report ---
XR chest 1V portable CLINICAL HISTORY: Atypical chest pain TECHNIQUE: Single frontal radiograph of the chest was obtained. Comparison: Comparison is made to chest one view 02/03/2021 FINDINGS: No lines and tubes are seen. The cardiomediastinal silhouette is normal. There is prominence and ceph alization of the vasculature with Philippe B lines seen. Bilateral lower lung opacities are seen. There are are small bilateral pleural effusions. IMPRESSION: Moderate pulmonary edema. Bilateral lower lung predominant opacities may represent atelectasis, pneum onia, aspiration, and/or alveolar edema. ACT 112: Negative or not required by law. Electronically signed by: Baudilio Aly M.D. 02/13/2021 5:42 PM
[2021-02-13 18:02] LABS: Alanine Aminotransferase 17 (12-78); Albumin Globulin Ratio 0.7 (0.9-2); Albumin Level 3.1 gm/dl (3.4-5.0); Alkaline Phosphatase 115 U/L (45-117); Aspartate Aminotransferase 17 U/L (15-37); BUN Creatinine Ratio 6.2 (10-20); Bilirubin,Total 1.2 mg/dl (0.2-1); Blood Urea Nitrogen 33 mg/dl (7-18); Calcium 7.8 mg/dl (8.5-10.1); Carbon Dioxide 28 mmol/L (21-32); Chloride 96 mmol/L (98-107); Creatinine Clr Calc Pharmacy 12.7 ml/min; Est GFR (African American) 11.4 ml/min; Est GFR (Non-African American) 9.9 ml/min; Globulin 4.2 gm/dl (2.5-4.0); Glucose 161 mg/dl (70-99); Potassium 5.6 mmol/L (3.5-5.1); Sodium 132 mmol/L (136-145); Total Protein 7.3 gm/dl (6.4-8.2); Troponin I 0.127 ng/ml (0-0.045)
[2021-02-13 18:42] LABS: NT Pro B Type Natriuretic Pept > 35000 pg/ml (0-900)
[2021-02-13 19:14] LABS: Influenza A virus by PCR Negative (Neg); Influenza B virus by PCR Negative (Neg); RSV by PCR Negative (Neg)
[2021-02-13 19:18] LABS: SARS CoV2 RNA(COVID-19) InHosp POSITIVE (Negative)
[2021-02-13] MEDS ORDERED: dexAMETHasone**PF** 10 MG/ML VIAL IV ONE (19:30)
[2021-02-13] MEDS ORDERED: METOPROLOL TARTRATE 1 MG/ML VIAL IV STA (22:26)
[2021-02-13] MEDS ORDERED: BENZONATATE 100 MG CAPSULE PO PRN (22:48)
[2021-02-13] MEDS ORDERED: ONDANSETRON INJ 2 MG/ML 2 ML VIAL IV PRN (22:48)
[2021-02-13] MEDS ORDERED: ALBUTEROL HFA 8 GM INHALER INH PRN (22:48)
[2021-02-13] MEDS ORDERED: IPRATROPIUM BROMIDE NEB SOLN 0.02% 2.5 ML VIAL INH SCH (22:48)
[2021-02-13] MEDS ORDERED: cefTRIAXone SODIUM 1,000 MG in DEXTROSE 5% 50 ML IV SCH (22:48)
[2021-02-13] MEDS ORDERED: NITROGLYCERIN SL 0.4 MG/TAB TAB SL PRN (22:48)
[2021-02-13] MEDS ORDERED: GLUCOSE 40% GEL 15 GM TUBE PO PRN (23:30)
[2021-02-13] MEDS ORDERED: GLUCOSE 10 TABS/TUBE PO PRN (23:30)
[2021-02-13] MEDS ORDERED: GLUCAGON FOR INJ 1 MG VIAL IM PRN (23:30)
[2021-02-13] MEDS ORDERED: ONDANSETRON 4 MG OD TAB PO PRN (23:49)
[2021-02-14] MEDS ORDERED: XOPENEX/ATROVENT 1.25mg/0.5MG NEB COMBO NEB SCH (01:00)
[2021-02-14] MEDS: CYCLOBENZAPRINE HCL 10 MG TAB PO SCH ×2 (01:05→21:12)
[2021-02-14] MEDS: HEPARIN SOD 5,000 UNIT/0.5 ML VIAL SQ SCH ×4 (01:05→21:12)
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
[2021-02-14] MEDS: INSULIN ASPART PER UNIT SC SCH ×5 (02:04→21:48)
[2021-02-14] MEDS: hydrOXYzine HCl 25 MG TAB PO PRN (02:05)
[2021-02-14] MEDS: cefTRIAXone SODIUM 2,000 MG in DEXTROSE 5% 50 ML IV SCH (02:06)
[2021-02-14] MEDS: IPRATROPIUM BROMIDE NEB SOLN 0.02% 2.5 ML VIAL INH SCH ×3 (02:23→11:49)
[2021-02-14] MEDS: LEVALBUTEROL 1.25MG/0.5ML NEB INH SCH ×3 (02:23→11:49)
[2021-02-14] MEDS: LEVOTHYROXINE SODIUM 125 MCG TABLET PO SCH (06:07)
[2021-02-14 07:46] LABS: Basophils # (auto) 0.01 K/uL (0-0.2); Basophils % (auto) 0.1 %; Hematocrit (blood only) 31.9 % (42-52); Hemoglobin 9.8 g/dL (14.0-18.0); Immature Granulocytes # (auto) 0.04 K/uL (0.00-0.02); Immature Granulocytes % (auto) 0.5 %; Lymphocytes # (auto) 0.41 K/uL (1.2-3.4); Lymphocytes % (auto) 5.2 %; Mean Corpuscular Hemoglobin 28.7 pg (25-34); Mean Corpuscular Hgb Conc 30.7 g/dL (32-36); Mean Corpuscular Volume 93.3 fL (80-100); Mean Platelet Volume 10.5 fL (7.4-10.4); Monocytes # (auto) 0.43 K/uL (0.11-0.59); Monocytes % (auto) 5.4 %; Neutrophils # (auto) 7.03 K/uL (1.4-6.5); Neutrophils % (auto) 88.8 %; Platelet Count 261 K/uL (130-400); RDW Coefficient of Variation 18.1 % (11.5-14.5); RDW Standard Deviation 60.8 fL (36.4-46.3); Red Blood Count 3.42 M/uL (4.7-6.1); White Blood Count 7.92 K/uL (4.8-10.8)
[2021-02-14 08:26] LABS: BUN Creatinine Ratio 8.5 (10-20); Calcium 7.6 mg/dl (8.5-10.1); Creatinine Clr Calc Pharmacy 10.7 ml/min; Est GFR (African American) 9.3 ml/min; Magnesium 2.2 mg/dl (1.8-2.4); Potassium 6.4 mmol/L (3.5-5.1); Thyroid Stimulating Hormone 9.87 uIu/ml (0.300-4.500)
[2021-02-14] MEDS ORDERED: PHARMACY GLYCEMIC MGMT CONSULT PRN (08:32)
[2021-02-14 08:39] LABS: T4 Free Thyroxine 0.82 ng/dl (0.8-1.6)
[2021-02-14] MEDS ORDERED: DEXTROSE 50% 50 ML SYRINGE IV ONE (09:00)
[2021-02-14] MEDS ORDERED: CALCIUM GLUCONATE 10% 1,000 MG in SODIUM CHLORIDE 0.9% 50 ML IV ONE (09:00)
[2021-02-14] MEDS ORDERED: NON-FORMULARY MEDICATION (Vit B,C-Iron Fum-Fa-D3-Zinc Ox [Prorenal] 8 mg iron-800 mcg-1,00 PO SCH (09:00)
[2021-02-14] MEDS ORDERED: INSULIN HUMAN REGULAR PER UNIT 10 UNITS in SYRINGE 9.9 ML IV ONE (09:00)
[2021-02-14] MEDS ORDERED: INSULIN HUMAN NPH SC ONE (09:15)
[2021-02-14] MEDS: METOPROLOL TARTRATE 100 MG TAB PO SCH (09:16)
[2021-02-14] MEDS: rOPINIRole HCL 1 MG TABLET PO SCH (09:16)
[2021-02-14] MEDS: NICOTINE 21 MG/24 HR TDSY TD SCH (09:16)
[2021-02-14] MEDS: SEVELAMER HCL 800 MG TABLET PO SCH ×3 (09:21→18:33)
[2021-02-14] MEDS: dexAMETHasone 6 MG in SYRINGE 0 ML IV SCH (09:21)
[2021-02-14] MEDS: UMECLIDINIUM/VILANTEROL 62.5/25MCG 7 PUFFS/INHALER INH SCH (09:22)
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
[2021-02-14] MEDS ORDERED: SODIUM CHLORIDE 0.9% 1000ML 1,000 ML IV PRN (09:37)
[2021-02-14] MEDS ORDERED: HEPARIN SOD (PORCINE) 1000 UNIT/ML IV ONE (09:37)
--- NOTE | 2021-02-14 11:05 | Hospitalist Progress Note ---
Date of Service February 14, 2021 Assessment & Plan (1) Shortness of breath: (2) Chronic kidney disease with end stage renal failure on dialysis: (3) COVID-19: (4) Hypothyroidism: (5) DVT prophylaxis: Plan: Shortness of breath, cough and subjective fever Was briefly on nasal oxygen in ER +COVID test CXR - moderate pulm edema. B/L Lower lung opacities which could be atelectasis, pneumonia or alveolar edema Hence, COVID 19 pneumonia is possible Currently on room air Currently on dexamethasone Incentive spirometry Patient is ESRD on HD. Has volume control challenges. Fluid overloaded - pulm edema Will get HD Nephro on board Hyperkalemic today. Temporizing measures - calcium gluconase, insulin/dextrose Continue levothyroxine Currently on ceftriaxone empirically. Had WBC on 13 on admission. Reassess tomorrow Hep sq for DVT ppx Admission and Anticipated Discharge Date Admission Date: February 13, 2021 Subjective Patient seen and examined. Reports shortness of breath is improved. Reports cough is chronic and unchanged. Denies any chest pain, nausea, vomiting, anorexia, abdominal pain, diarrhea Denies any fevers or chills Physical Exam Constitutional: + well hydrated; no acute distress Eyes: PERRL, conjunctivae normal, anicteric sclerae ENMT: external ear and nose normal, oropharynx normal Respiratory: normal respiratory effort, lungs clear to auscultation Cardiovascular: Rate/Rhythm: regular rate and regular rhythm S1 S2 Gastrointestinal (Abdomen): normal bowel sounds, soft, nontender, no hepatosplenomegaly Musculoskeletal: no cyanosis or clubbing, extremities motor strength 5/5 Neurologic: PERRL, EOMI, accommodation nl, no face palsy, no dysarthria Psychiatric: A+Ox3, euthymic affect Results & Data Results & Data ([facility]) Vital Signs (Past 12 Hours) Vital Signs Temp Pulse Pulse Resp BP Pulse Ox 02/14/21 07:51 36.6 C 96 H 22 140/72 97 02/14/21 03:35 36.8 C 101 H 20 149/79 H 92 02/14/21 00:34 92 H 02/13/21 23:59 37.1 C 93 H 20 142/79 H 98 Laboratory Results Abnormal lab results 02/13/21 02/13/21 02/13/21 Range/Units 17:05 17:05 18:23 WBC 13.71 H (4.8-10.8) K/uL RBC 3.74 L (4.7-6.1) M/uL Hgb 10.9 L (14.0-18.0) g/dL Hct 35.3 L (42-52) % MCHC 30.9 L (32-36) g/dL RDW Std Deviation 63.0 H (36.4-46.3) fL RDW Coeff of Shaylee 18.7 H (11.5-14.5) % MPV (7.4-10.4) fL Neut # (Auto) 11.48 H (1.4-6.5) K/uL Lymph # (Auto) 1.09 L (1.2-3.4) K/uL [place] # (Auto) 0.92 H (0.11-0.59) K/uL Immature Gran # (Auto) 0.09 H (0.00-0.02) K/uL Sodium 132 L (136-145) mmol/L Potassium 5.6 H (3.5-5.1) mmol/L Chloride 96 L (98-107) mmol/L BUN 33 H (7-18) mg/dl Creatinine 5.38 H* (0.6-1.4) mg/dl BUN/Creatinine Ratio 6.2 L (10-20) Glucose 161 H (70-99) mg/dl POC Glucose (70-99) mg/dl Hemoglobin A1c (4.5-5.6) % Calcium 7.8 L (8.5-10.1) mg/dl Total Bilirubin 1.2 H (0.2-1) mg/dl Troponin I 0.127 H* (0-0.045) ng/ml NT-Pro-B Natriuret Pep > 48855 H (0-900) pg/ml Albumin 3.1 L (3.4-5.0) gm/dl Globulin 4.2 H (2.5-4.0) gm/dl Albumin/Globulin Ratio 0.7 L (0.9-2) TSH (0.300-4.500) uIu/ml SARS-CoV-2 (PCR) POSITIVE A* (Negative) 02/14/21 02/14/21 02/14/21 Range/Units 00:02 06:57 06:57 WBC (4.8-10.8) K/uL RBC 3.42 L (4.7-6.1) M/uL Hgb 9.8 L (14.0-18.0) g/dL Hct 31.9 L (42-52) % MCHC 30.7 L (32-36) g/dL RDW Std Deviation 60.8 H (36.4-46.3) fL RDW Coeff of Shaylee 18.1 H (11.5-14.5) % MPV 10.5 H (7.4-10.4) fL Neut # (Auto) 7.03 H (1.4-6.5) K/uL Lymph # (Auto) 0.41 L (1.2-3.4) K/uL [place] # (Auto) (0.11-0.59) K/uL Immature Gran # (Auto) 0.04 H (0.00-0.02) K/uL Sodium 132 L (136-145) mmol/L Potassium 6.4 H* (3.5-5.1) mmol/L Chloride (98-107) mmol/L BUN 54 H D (7-18) mg/dl Creatinine 6.39 H* D (0.6-1.4) mg/dl BUN/Creatinine Ratio 8.5 L (10-20) Glucose 297 H (70-99) mg/dl POC Glucose 275 H (70-99) mg/dl Hemoglobin A1c (4.5-5.6) % Calcium 7.6 L (8.5-10.1) mg/dl Total Bilirubin (0.2-1) mg/dl Troponin I (0-0.045) ng/ml NT-Pro-B Natriuret Pep (0-900) pg/ml Albumin (3.4-5.0) gm/dl Globulin (2.5-4.0) gm/dl Albumin/Globulin Ratio (0.9-2) TSH 9.870 H (0.300-4.500) uIu/ml SARS-CoV-2 (PCR) (Negative) 02/14/21 02/14/21 02/14/21 Range/Units 06:57 07:50 10:29 WBC (4.8-10.8) K/uL RBC (4.7-6.1) M/uL Hgb (14.0-18.0) g/dL Hct (42-52) % MCHC (32-36) g/dL RDW Std Deviation (36.4-46.3) fL RDW Coeff of Shaylee (11.5-14.5) % MPV (7.4-10.4) fL Neut # (Auto) (1.4-6.5) K/uL Lymph # (Auto) (1.2-3.4) K/uL [place] # (Auto) (0.11-0.59) K/uL Immature Gran # (Auto) (0.00-0.02) K/uL Sodium (136-145) mmol/L Potassium (3.5-5.1) mmol/L Chloride (98-107) mmol/L BUN (7-18) mg/dl Creatinine (0.6-1.4) mg/dl BUN/Creatinine Ratio (10-20) Glucose (70-99) mg/dl POC Glucose 245 H 225 H (70-99) mg/dl Hemoglobin A1c 7.6 H (4.5-5.6) % Calcium (8.5-10.1) mg/dl Total Bilirubin (0.2-1) mg/dl Troponin I (0-0.045) ng/ml NT-Pro-B Natriuret Pep (0-900) pg/ml Albumin (3.4-5.0) gm/dl Globulin (2.5-4.0) gm/dl Albumin/Globulin Ratio (0.9-2) TSH (0.300-4.500) uIu/ml SARS-CoV-2 (PCR) (Negative) 02/14/21 Range/Units 11:45 WBC (4.8-10.8) K/uL RBC (4.7-6.1) M/uL Hgb (14.0-18.0) g/dL Hct (42-52) % MCHC (32-36) g/dL RDW Std Deviation (36.4-46.3) fL RDW Coeff of Shaylee (11.5-14.5) % MPV (7.4-10.4) fL Neut # (Auto) (1.4-6.5) K/uL Lymph # (Auto) (1.2-3.4) K/uL [place] # (Auto) (0.11-0.59) K/uL Immature Gran # (Auto) (0.00-0.02) K/uL Sodium (136-145) mmol/L Potassium (3.5-5.1) mmol/L Chloride (98-107) mmol/L BUN (7-18) mg/dl Creatinine (0.6-1.4) mg/dl BUN/Creatinine Ratio (10-20) Glucose (70-99) mg/dl POC Glucose 101 H (70-99) mg/dl Hemoglobin A1c (4.5-5.6) % Calcium (8.5-10.1) mg/dl Total Bilirubin (0.2-1) mg/dl Troponin I (0-0.045) ng/ml NT-Pro-B Natriuret Pep (0-900) pg/ml Albumin (3.4-5.0) gm/dl Globulin (2.5-4.0) gm/dl Albumin/Globulin Ratio (0.9-2) TSH (0.300-4.500) uIu/ml SARS-CoV-2 (PCR) (Negative)
--- NOTE | 2021-02-14 12:10 | Pharmacy Report ---
Pharmacy Glycemic Short Note 2 - Date of Service February 14, 2021 - Glycemic Short BSG Results (Last 24 hours): 02/13/21 02/14/21 02/14/21 17:05 00:02 06:57 Glucose 161 H 297 H POC Glucose 275 H 02/14/21 02/14/21 02/14/21 07:50 10:29 11:45 Glucose POC Glucose 245 H 225 H 101 H OUTPATIENT ANTIDIABETIC REGIMEN: * n/a ASSESSMENT: * Mr Gustafson is a 70 y/o M with a PMH of ESRD on HD who presents with COVID- 19. He was started on dexamethasone 6 mg IV daily yesterday. * Patient's BSG on admission was 161 mg/dL (prior to dexamethasone) then 275 mg/dL at night. * Morning fasting was 297 mg/dL on PRP and 245 mg/dL on POC. * Patient with hyperkalemia so given 10 units IV insulin with 1/2 amp of D50. * Start NPH 25 units (0.3 units/kg). Novolog weight-based stress of 2 for now as patient is insulin sensitive. PLAN FOR INPATIENT GLYCEMIC CONTROL: * Basal insulin * NPH 25 units SQ daily * Bolus insulin * NovoLog per scale ACHS or Q6hrs while NPO * Goal Range: Low 110 mg/dL - High 140 mg/dL * Correction Factor: 25 mg/dL/unit * Nutritional / Prandial insulin per carb ratio of 1 unit per 8 grams CHO consumed PLAN FOR DISCHARGE: * HbA1C is not accurate in an individual with ESRD on HD. * Recommend monitoring blood sugars as an outpatient and following up with provider to make adjustments to medication regimen as appropriate.
[2021-02-14 12:43] LABS: Estimated Average Glucose 171 mg/dl; Hemoglobin A1C 7.6 % (4.5-5.6)
[2021-02-14] MEDS ORDERED: diphenhydrAMINE Capsule 25 MG CAP PO ONE (14:44)
[2021-02-14] MEDS: HEPARIN SOD (PORCINE) 1000 UNIT/ML IV SCH ×2 (14:56→14:57)
--- NOTE | 2021-02-14 16:11 | Electrocardiogram Report ---
Test Reason : Blood Pressure : / mmHG Vent. Rate : 123 BPM Atrial Rate : 123 BPM P-R Int : 168 ms QRS Dur : 080 ms QT Int : 306 ms P-R-T Axes : 063 023 058 degrees QTc Int : 438 ms Poor data quality, interpretation may be adversely affected Sinus tachycardia Poor R wave progression, consider anterior KS vs. lead placement vs. LVH Abnormal ECG When compared with ECG of 04-FEB-2021 05:40, No significant change was found Confirmed by Shawn Quigley ([id number]) on 02/14/2021 4:10:50 PM Referred By: Sabino Murphy Confirmed By:Shawn Quigley
[2021-02-15] MEDS: cefTRIAXone SODIUM 2,000 MG in DEXTROSE 5% 50 ML IV SCH (00:28)
[2021-02-15] MEDS: LEVOTHYROXINE SODIUM 125 MCG TABLET PO SCH (06:36)
[2021-02-15] MEDS: HEPARIN SOD 5,000 UNIT/0.5 ML VIAL SQ SCH ×2 (06:37→13:56)
[2021-02-15 08:36] LABS: Hemoglobin 9.7 g/dL (14.0-18.0); Mean Corpuscular Hemoglobin 28.9 pg (25-34); Mean Corpuscular Hgb Conc 31.3 g/dL (32-36); Mean Corpuscular Volume 92.3 fL (80-100); Mean Platelet Volume 10.2 fL (7.4-10.4); Platelet Count 242 K/uL (130-400); RDW Coefficient of Variation 17.9 % (11.5-14.5); RDW Standard Deviation 59.5 fL (36.4-46.3); Red Blood Count 3.36 M/uL (4.7-6.1); White Blood Count 14.99 K/uL (4.8-10.8)
[2021-02-15] MEDS ORDERED: INSULIN HUMAN NPH SC SCH (09:00)
[2021-02-15] MEDS: SEVELAMER HCL 800 MG TABLET PO SCH ×3 (09:14→17:59)
[2021-02-15] MEDS: rOPINIRole HCL 1 MG TABLET PO SCH (09:14)
[2021-02-15] MEDS: METOPROLOL TARTRATE 100 MG TAB PO SCH (09:14)
[2021-02-15] MEDS: NICOTINE 21 MG/24 HR TDSY TD SCH (09:15)
[2021-02-15] MEDS: dexAMETHasone 6 MG in SYRINGE 0 ML IV SCH (09:15)
[2021-02-15] MEDS: UMECLIDINIUM/VILANTEROL 62.5/25MCG 7 PUFFS/INHALER INH SCH (09:16)
[2021-02-15 09:29] LABS: Calcium 8.2 mg/dl (8.5-10.1); Creatinine Clr Calc Pharmacy 14.7 ml/min; Est GFR (African American) 13.5 ml/min; Est GFR (Non-African American) 11.6 ml/min; Potassium 5.1 mmol/L (3.5-5.1)
[2021-02-15] MEDS: INSULIN ASPART PER UNIT SC SCH ×4 (09:29→21:20)
--- NOTE | 2021-02-15 09:33 | Hospitalist Progress Note ---
Date of Service February 15, 2021 Assessment & Plan (1) Shortness of breath: (2) Chronic kidney disease with end stage renal failure on dialysis: (3) COVID-19: (4) Hypothyroidism: (5) DVT prophylaxis: Plan: Shortness of breath, cough and subjective fever Was briefly on nasal oxygen in ER +COVID test CXR - moderate pulm edema. B/L Lower lung opacities which could be atelectasis, pneumonia or alveolar edema Hence, COVID 19 pneumonia is possible Currently on room air Currently on dexamethasone Patient is ESRD on HD. Has volume control challenges. Fluid overloaded - pulm edema Got HD yesterday Nephro on board Hyperkalemia resolved with HD, currently 5.1 Monitor. Low K diet. Continue levothyroxine Currently on ceftriaxone empirically. Had WBC on 13 on admission. Procal elevated (this has been chronically elevated in the past, likely due to ESRD) Hep sq for DVT ppx Check ambulatory pulse ox Admission and Anticipated Discharge Date Admission Date: February 13, 2021 Subjective Patient seen and examined. Reports shortness of breath is resolved Reports cough is chronic and unchanged. Denies any chest pain, nausea, vomiting, anorexia, abdominal pain, diarrhea Denies any fevers or chills Physical Exam Constitutional: + well hydrated; no acute distress Eyes: PERRL, conjunctivae normal, anicteric sclerae ENMT: external ear and nose normal, oropharynx normal Respiratory: normal respiratory effort, lungs clear to auscultation Cardiovascular: Rate/Rhythm: regular rate and regular rhythm S1 S2 Gastrointestinal (Abdomen): normal bowel sounds, soft, nontender, no hepatosplenomegaly Musculoskeletal: no cyanosis or clubbing, extremities motor strength 5/5 Pedal edema Neurologic: PERRL, EOMI, accommodation nl, no face palsy, no dysarthria Psychiatric: A+Ox3, euthymic affect Results & Data Results & Data ([facility]) Vital Signs (Past 12 Hours) Vital Signs Temp Pulse Pulse Resp BP Pulse Ox 02/15/21 07:59 36.7 C 97 H 18 149/85 H 98 02/15/21 03:00 36.7 C 108 H 20 139/88 96 02/14/21 23:00 89 02/14/21 22:40 36.7 C 101 H 20 133/81 93 Laboratory Results Abnormal lab results 02/14/21 02/15/2122 Range/Units 20:16 08:23 08:23 WBC 14.99 H (4.8-10.8) K/uL RBC 3.36 L (4.7-6.1) M/uL Hgb 9.7 L (14.0-18.0) g/dL Hct 31.0 L (42-52) % MCHC 31.3 L (32-36) g/dL RDW Std Deviation 59.5 H (36.4-46.3) fL RDW Coeff of Shaylee 17.9 H (11.5-14.5) % Sodium 135 L (136-145) mmol/L BUN 42 H (7-18) mg/dl Creatinine 4.70 H* D (0.6-1.4) mg/dl BUN/Creatinine Ratio 9.0 L (10-20) Glucose 266 H (70-99) mg/dl POC Glucose 151 H (70-99) mg/dl Calcium 8.2 L (8.5-10.1) mg/dl Procalcitonin (0-0.5) ng/ml 02/15/21 02/15/21 02/15/21 Range/Units 08:23 08:28 12:35 WBC (4.8-10.8) K/uL RBC (4.7-6.1) M/uL Hgb (14.0-18.0) g/dL Hct (42-52) % MCHC (32-36) g/dL RDW Std Deviation (36.4-46.3) fL RDW Coeff of Shaylee (11.5-14.5) % Sodium (136-145) mmol/L BUN (7-18) mg/dl Creatinine (0.6-1.4) mg/dl BUN/Creatinine Ratio (10-20) Glucose (70-99) mg/dl POC Glucose 257 H 156 H (70-99) mg/dl Calcium (8.5-10.1) mg/dl Procalcitonin 1.37 H (0-0.5) ng/ml
[2021-02-15] MEDS: LEVALBUTEROL HCL 1.25 MG/3 ML NEB NEB PRN (13:35)
--- NOTE | 2021-02-15 16:18 | XRay Report ---
XR chest 1V portable CLINICAL HISTORY: Shortness of breath. Reeval TECHNIQUE: Single frontal radiograph of the chest was obtained. Comparison: Comparison is made to chest one view 02/13/2021 FINDINGS: No lines and tubes are seen. Calcified aortic knob is seen. Prominence and cephalization of the vascu lature is seen. Interval improvement in bilateral lower lung airspace opacities. There is likely a tr kaylen left pleural effusion. IMPRESSION: Interval improvement in bilateral lower lung predominant airspace opacities. Mild pulmonary edema, im proved from prior exam. ACT 112: Negative or not required by law. Electronically signed by: Baudilio Aly M.D. 02/15/2021 4:17 PM
--- NOTE | 2021-02-15 18:05 | Nephrology Progress Note ---
Date of Service February 15, 2021 Assessment & Plan (1) Chronic kidney disease with end stage renal failure on dialysis: Plan: ESRD on MWF HD via [facility] w/ chronic OL issues and now hyperkalemia/hyperglycemia and C 19 PNA -HD 02/14 for 3.5 hr, 2K bath; had 3L fluid removal; he struggles to tolerate UF; 2 K bath -already on flexeril 10 mg hs and requip 1 mg daily so not much more to do to help w/ mm cramping except lower dialysate temp -cont 1.2L FR to dialysis diet -will clarify if on mircera w/ lung nodule under investigation -mild hyperkalemia recurring today Will need HD tomorrow 3 hr 2K bath aim for another 3L UF At hospital d/c will need to dialyze at [facility] d/t covid hx/status; duration of needing to do this is either 21 days from onset of sx or after 2 negative tests which would be done at dialysis, whichever soonerr Unfortunately no transportation available to [place] > pt would have to arrange If he is d/c tomorrow or Wednesday, OP dialysis will call him Wed PM to say what time to arrive for tx (2) Pneumonia due to 2019-nCoV: Plan: per primary service -dialysis as above -he has/will need to cx lung bx scheduled for 02/18 -for CT PE protocol today (3) Fluid overload: Plan: as above Admission and Anticipated Discharge Date Admission Date: February 13, 2021 Subjective seen on rounds about 1645; pt felt well this am and d/c contemplated; this afternoon he had a coughing fit and since then very sob, generalized weakness, anxious. no pleuritic or other chest pain. Review of Systems Review of Systems: All systems reviewed & are unremarkable except as noted in Subjective Physical Exam Constitutional: well developed, well nourished, + acute distress (mild with being asked to do exam maneuvers) and cooperative Eyes: EOM intact bilaterally ENMT: Ears: no external ear abnormality Nose: no external nose abnormality Mouth: + dry oral mucous membranes Neck: no nuchal rigidity Respiratory: normal respiratory effort Auscultation: + diminished lung sounds Cardiovascular: Rate/Rhythm: regular rate and regular rhythm Extremities: + edema (2+ pedal) and + AV fistula (+t/b) Gastrointestinal (Abdomen): Inspection/Auscultation: normal bowel sounds Percussion/Palpation: abdomen soft; abdomen nontender Musculoskeletal: Extremities: strength 5/5 throughout Skin: no rashes, warm and dry Neurologic: + tremors, asks for asst to sit up in bed; fluent speech Psychiatric: Orientation: alert and oriented x 3 Affect: + anxious affect Results & Data ([facility]) Vital Signs (Past 12 Hours) Vital Signs Temp Pulse Pulse Pulse Pulse Pulse Resp 02/15/21 15:33 36.8 C 88 20 02/15/21 15:00 84 02/15/21 13:36 89 16 02/15/21 13:35 97 H 95 H 89 02/15/21 12:50 36.8 C 84 18 02/15/21 07:59 36.7 C 97 H 18 02/15/21 07:00 87 Resp Resp Resp BP Pulse Ox Pulse Ox Pulse Ox 02/15/21 15:33 146/93 H 99 02/15/21 15:00 02/15/21 13:36 95 02/15/21 13:35 20 20 16 95 98 02/15/21 12:50 140/72 95 02/15/21 07:59 149/85 H 98 02/15/21 07:00 Pulse Ox 02/15/21 15:33 02/15/21 15:00 02/15/21 13:36 02/15/21 13:35 99 02/15/21 12:50 02/15/21 07:59 02/15/21 07:00 Laboratory Results 02/15/21 08:23 02/15/21 08:23 Diagnostic Findings cxr Interval improvement in bilateral lower lung predominant airspace opacities. Mild pulmonary edema, improved from prior exam. (1) Fluid overload Hypervolemia type: unspecified Qualified Code(s): E87.70 - Fluid overload, unspecified
[2021-02-15] MEDS ORDERED: HEPARIN SOD (PORCINE) 1000 UNIT/ML IV ONE (18:20)
[2021-02-15] MEDS ORDERED: SODIUM CHLORIDE 0.9% 1000ML 1,000 ML IV PRN (18:20)
[2021-02-15] MEDS ORDERED: OPTIRAY 320 125ml IV ONE (18:58)
[2021-02-15 19:06] LABS: Hematocrit (blood only) 38.6 % (42-52); Hemoglobin 12.3 g/dL (14.0-18.0); Mean Corpuscular Hemoglobin 29.6 pg (25-34); Mean Corpuscular Volume 92.8 fL (80-100); Mean Platelet Volume 10.4 fL (7.4-10.4); Platelet Count 274 K/uL (130-400); RDW Coefficient of Variation 17.8 % (11.5-14.5); RDW Standard Deviation 59.5 fL (36.4-46.3); Red Blood Count 4.16 M/uL (4.7-6.1); White Blood Count 18.46 K/uL (4.8-10.8)
[2021-02-15 19:08] LABS: Mean Corpuscular Hgb Conc 31.9 g/dL (32-36)
--- NOTE | 2021-02-15 19:21 | CT Scan Report ---
CT head/brain wo con CLINICAL HISTORY: hallucinations. R/o CVA Technique: Contiguous axial CT images of the head were acquired from the base of the skull to the sarah beth geeta without intravenous contrast administration. Images were viewed in brain, subdural and [facility]. Automated dose lowering techniques and/or adjustment according to patient size were utilized for this exam. Comparison: Comparison is made to CT head 07/04/2019 Findings: Areas of decreased attenuation are present in the periventricular and subcortical white matter bilate rally consistent with small vessel ischemic disease. Generalized cerebral atrophy with commensurate e nlargement of the ventricles, sulci, and cisterns is also present. There is no acute intracranial hem orrhage or evidence of acute territorial infarction. No shift of the midline structures, mass effect, or extra-axial abnormalities are shown. Atherosclerotic calcifications are present in the intracran ial segments of the internal carotid arteries. Imaged portions of the paranasal sinuses and mastoid air cells are clear. The orbits appear normal. There are no acute fractures of the calvaria or scalp swelling. Impression: No acute intracranial hemorrhage, no evidence of acute territorial infarction or other acute intracra nial disease process. ACT 112: Negative or not required by law. Electronically signed by: Baudilio Aly M.D. 02/15/2021 7:19 PM
--- NOTE | 2021-02-15 19:25 | CT Scan Report ---
CT angio chest PE protocol CLINICAL HISTORY: Rule out PE. worsening SOB TECHNIQUE: Multidetector row helical CT of the chest was performed. Coronal and sagittal reformations were obtained. Coronal and sagittal MIPS were obtained from the axial data set and were submitted fo r review. Automated dose lowering techniques and/or adjustment according to patient size were utiliz ed for this exam. Comparison: Comparison is made to CT chest 01/08/2021 FINDINGS: Lungs and pleura: Small bilateral pleural effusions are seen. There is trace bilateral atelectasis. T here is smooth interlobular septal thickening compatible with pulmonary edema. A 23 mm nodule is seen in the right upper lobe. Groundglass opacities are seen in the predominantly upper lobes. 7 mm nodul e in the left lung base is unchanged. Heart and pericardium: There is cardiomegaly without evidence of pericardial effusion. Vessels: No evidence of pulmonary embolism. Severe atherosclerotic calcifications are seen. Mediastinum and tsering: Unremarkable. Chest wall and lower neck: Unremarkable. Abdomen: Unremarkable. Bones: Unremarkable. IMPRESSION: 1. No evidence of pulmonary embolism. 2. Cardiomegaly and emphysema with moderate pulmonary edema. 3. Redemonstration of right upper lobe spiculated nodule which remains suspicious for malignancy. 7 mm nodule in the lung base on the left is unchanged. 4. Pleural effusions. 5. Additional findings as above. ACT 112: Negative or not required by law. Electronically signed by: Baudilio Aly M.D. 02/15/2021 7:24 PM
[2021-02-15] MEDS ORDERED: ALBUTEROL 0.083% NEBU SOLN 3 ML VIAL NEB STA (19:42)
[2021-02-15 19:52] LABS: iSTAT Allen Test Pass; iSTAT Art Bld Gas pCO2 Correct 36 mmHg (35-46); iSTAT Art Bld Gas pH Corrected 7.381 (7.35-7.45); iSTAT Arterial Blood Gas HCO3 21 meg/L (19-24); iSTAT Arterial Blood Gas pCO2 36 mmHg (35-46); iSTAT Arterial Blood Gas pH 7.38 (7.35-7.45); iSTAT Arterial Blood Gas pO2 > 420 mmHg (80-95); iSTAT Arterial Blood Gas pO2 C 426; iSTAT Carbon Dioxide 22 mmol/L (24-31); iSTAT FiO2 100 %; iSTAT Hematocrit 30 % (42-52); iSTAT Hemoglobin 10.2 g/dl (14.0-18.0); iSTAT Potassium 5.6 mmol/L (3.3-5.0); iSTAT Site R Radial; iSTAT Sodium 127 mmol/L (135-144)
[2021-02-15 20:01] LABS: BUN Creatinine Ratio 8.8 (10-20); Calcium 8.9 mg/dl (8.5-10.1); Creatinine Clr Calc Pharmacy 13.5 ml/min; Est GFR (African American) 12.1 ml/min; Est GFR (Non-African American) 10.5 ml/min; Potassium 5.5 mmol/L (3.5-5.1)
[2021-02-15] MEDS: HEPARIN SOD (PORCINE) 1000 UNIT/ML IV SCH (21:22)
[2021-02-16] MEDS: HEPARIN SOD 5,000 UNIT/0.5 ML VIAL SQ SCH ×4 (00:08→21:09)
[2021-02-16] MEDS: CARBOHYDRATES FOR HYPOGLYCEMIA PO PRN (00:09)
[2021-02-16] MEDS: cefTRIAXone SODIUM 2,000 MG in DEXTROSE 5% 50 ML IV SCH (00:12)
[2021-02-16] MEDS ORDERED: dilTIAZem HCl 5 MG/ML 5 ML VIAL IV STA (01:55)
[2021-02-16] MEDS ORDERED: dilTIAZem HCl 5 MG/ML 5 ML VIAL IV ONE (01:58)
[2021-02-16] MEDS ORDERED: dexAMETHasone 6 MG in SYRINGE 0 ML IV ONE (02:00)
[2021-02-16] MEDS: LEVALBUTEROL HCL 1.25 MG/3 ML NEB NEB PRN (02:00)
[2021-02-16] MEDS ORDERED: MoRPHine SULFATE 2 MG/ML CARP IV STA (02:07)
[2021-02-16] MEDS ORDERED: MoRPHine SULFATE 2 MG/ML CARP IV ONE (02:36)
[2021-02-16] MEDS ORDERED: RAPID SEQUENCE INDUCTION BAG ONE (02:39)
[2021-02-16 02:44] LABS: iSTAT Allen Test Pass; iSTAT Arterial Blood Gas HCO3 27 meg/L (19-24); iSTAT Arterial Blood Gas pCO2 42 mmHg (35-46); iSTAT Arterial Blood Gas pH 7.42 (7.35-7.45); iSTAT Arterial Blood Gas pO2 93 mmHg (80-95); iSTAT Carbon Dioxide 29 mmol/L (24-31); iSTAT FiO2 40 %; iSTAT Site R Radial
[2021-02-16] MEDS ORDERED: PROPOFOL IV EMULSION 10 MG/ML 100 ML VIAL IV ONE (02:47)
[2021-02-16] MEDS ORDERED: STAT IV Infusion **Titration per Protocol STA ×2 (03:11→17:12)
[2021-02-16] MEDS ORDERED: ICU PROTOCOL FOR HYPERGLYCEMIA PRN (03:11)
--- NOTE | 2021-02-16 03:14 | Emergency Department Note ---
ED Visit Note Endotracheal Intubation-I was requested by ICU staff Indication for respiratory failure. The patient was on BiPAP prior to the procedure. Suction, airway equipment, RSI drugs, respiratory equipment, and appropriate personnel were prepared prior to the initiation of the procedure. A time out was taken. Induction was performed with 160 mg of IV succinylcholine and 20 mg of IV etomidate. After observing the clinical benefit of the medications, the airway was easily visualized utilizing a glide scope. A 7.5 size ETT tube was placed atraumatically to 24 cm using standard technique. The cuff inflated without signs of malfunction. There were bilateral breath sounds, positive colormetric change, no gastric sounds, a good capnography waveform, and post procedure pulse oximetry was 100%. There were no complications. .
[2021-02-16] MEDS: propofoL 1,000 MG/100 ML VIAL IV SCH ×2 (03:15→14:00)
[2021-02-16] MEDS ORDERED: ACETAMINOPHEN 1,000 MG/100 ML VIAL IV PRN (03:16)
[2021-02-16] MEDS ORDERED: ACETAMINOPHEN 1000 MG/100 ML IV IV ONE (03:17)
[2021-02-16] MEDS ORDERED: fentaNYL citrate 2,500 MCG/250 ML BAG IV ONE (03:19)
[2021-02-16] MEDS: PROPOFOL BOLUS FROM BAG IV PRN ×2 (03:30→06:37)
[2021-02-16] MEDS: fentaNYL citrate 2,500 MCG/250 ML BAG IV SCH (03:40)
[2021-02-16] MEDS: CYCLOBENZAPRINE HCL 10 MG TAB PO SCH ×2 (03:43→21:08)
[2021-02-16] MEDS: INSULIN ASPART PER UNIT SC SCH ×6 (04:14→21:08)
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
--- NOTE | 2021-02-16 05:25 | Procedure Note ---
Procedure Note Date of Service February 16, 2021 Note Procedure: Arterial Line Placement Attending: Dr. Yanez APC: Alfie Jameson PA-C Indication: Hemodynamic monitoring Anesthesia: Lidocaine 1% Emergent Consent implied in the setting of clinical deterioration and need for close hemodynamic monitoring, ABG monitoring, frequent lab draws, etc. A time-out was completed verifying correct patient, procedure, site, positioning, and implant(s) or special equipment if applicable. Allens test was performed to ensure adequate perfusion. Patients RIGHT wrist was prepped and draped in the usual sterile fashion. Ultrasound guidance was used to aid needle placement. A 20g Arrow arterial line was introduced into the RIGHT Radial artery artery. Catheter was threaded, and the needle was removed with appropriate blood return. Good waveform was observed. The patient tolerated the procedure well. Confirmation of placement with ultrasound. Blood Loss: Minimal Complications: None Procedural Ultrasound Guidance: Procedure Date: 02/16/2021 Indication: Hemodynamic Monitoring, Frequent ABGs/Lab draws. Attending: Dr. Yanez APC: Alfie Jameson PA-C Artery Identified: YES Line confirmed in Artery with ultrasound: YES Complications: NONE Patient tolerated procedure: WELL Coding CPT Codes Tubes, Drains, and Vasc Access - Tubes, Drains, and Vasc Access: [id number] Place Catheter In Artery ([id number]) [facility] [place] Procedure Codes (Charges) Tubes, Drains, and Vasc Access Procedure 1: Tubes, Drains, and Vasc Access: [id number] Place Catheter In Artery
[2021-02-16 05:50] LABS: iSTAT Art Bld Gas pCO2 Correct 39 mmHg (35-46); iSTAT Art Bld Gas pH Corrected 7.489 (7.35-7.45); iSTAT Arterial Blood Gas HCO3 29 meg/L (19-24); iSTAT Arterial Blood Gas pCO2 36 mmHg (35-46); iSTAT Arterial Blood Gas pH 7.51 (7.35-7.45); iSTAT Arterial Blood Gas pO2 74 mmHg (80-95); iSTAT Arterial Blood Gas pO2 C 82; iSTAT Carbon Dioxide 30 mmol/L (24-31); iSTAT FiO2 30 %; iSTAT Hematocrit 28 % (42-52); iSTAT Hemoglobin 9.5 g/dl (14.0-18.0); iSTAT Potassium 4.7 mmol/L (3.3-5.0); iSTAT Site Art Line; iSTAT Sodium 132 mmol/L (135-144)
[2021-02-16 06:07] LABS: Basophils # (auto) 0.02 K/uL (0-0.2); Basophils % (auto) 0.1 %; Hematocrit (blood only) 29.2 % (42-52); Hemoglobin 9.3 g/dL (14.0-18.0); Immature Granulocytes # (auto) 0.08 K/uL (0.00-0.02); Immature Granulocytes % (auto) 0.5 %; Lymphocytes # (auto) 0.29 K/uL (1.2-3.4); Lymphocytes % (auto) 1.9 %; Mean Corpuscular Hemoglobin 28.8 pg (25-34); Mean Corpuscular Hgb Conc 31.8 g/dL (32-36); Mean Corpuscular Volume 90.4 fL (80-100); Mean Platelet Volume 10.2 fL (7.4-10.4); Monocytes # (auto) 1.25 K/uL (0.11-0.59); Monocytes % (auto) 8.4 %; Neutrophils # (auto) 13.32 K/uL (1.4-6.5); Neutrophils % (auto) 89.1 %; Platelet Count 221 K/uL (130-400); RDW Coefficient of Variation 17.2 % (11.5-14.5); RDW Standard Deviation 56.2 fL (36.4-46.3); Red Blood Count 3.23 M/uL (4.7-6.1); White Blood Count 14.96 K/uL (4.8-10.8)
[2021-02-16] MEDS: LEVOTHYROXINE SODIUM 125 MCG TABLET PO SCH (06:16)
[2021-02-16 06:49] LABS: BUN Creatinine Ratio 7.8 (10-20); Calcium 7.9 mg/dl (8.5-10.1); Creatinine Clr Calc Pharmacy 18.3 ml/min; Est GFR (African American) 17.5 ml/min; Est GFR (Non-African American) 15.1 ml/min; Magnesium 2.4 mg/dl (1.8-2.4); Potassium 4.7 mmol/L (3.5-5.1)
--- NOTE | 2021-02-16 07:53 | XRay Report ---
XR chest 1V portable CLINICAL HISTORY: s/p intubation/OGT TECHNIQUE: Single frontal radiograph of the chest was obtained. Comparison: Comparison is made to chest one view 02/15/2021 FINDINGS: An endotracheal tube tip is 3.8 cm from the dinh. The enteric tube tip and side-port are in the sto mach. Cardiomegaly is noted. Calcified and tortuous aortic arch is noted. Bilateral airspace opacitie s are seen. There is cephalization of the vasculature. No evidence of pleural effusion or pneumothora x. IMPRESSION: 1. Satisfactory positioning of lines and tubes. 2. Bilateral airspace opacities, slightly worsened from prior exam, may represent atelectasis, pneum onia, and/or aspiration. 3. Stable mild pulmonary edema. ACT 112: Negative or not required by law. Electronically signed by: Baudilio Aly M.D. 02/16/2021 7:51 AM
[2021-02-16] MEDS: DOXYCYCLINE HYCLATE 100 MG in DEXTROSE 5% 100 ML IV SCH ×2 (08:17→21:07)
[2021-02-16] MEDS: rOPINIRole HCL 1 MG TABLET PO SCH (08:19)
[2021-02-16] MEDS: FAMOTIDINE 20 MG in SYRINGE 3 ML IV SCH ×2 (08:19→21:08)
[2021-02-16] MEDS: NICOTINE 21 MG/24 HR TDSY TD SCH (08:19)
[2021-02-16] MEDS: dexAMETHasone 6 MG in SYRINGE 0 ML IV SCH (08:49)
[2021-02-16] MEDS ORDERED: INSULIN HUMAN NPH SC SCH (09:00)
[2021-02-16] MEDS: METOPROLOL TARTRATE 100 MG TAB PO SCH (09:06)
[2021-02-16] MEDS: UMECLIDINIUM/VILANTEROL 62.5/25MCG 7 PUFFS/INHALER INH SCH (09:06)
[2021-02-16] MEDS: SEVELAMER HCL 800 MG TABLET PO SCH ×3 (09:06→16:53)
--- NOTE | 2021-02-16 10:01 | Hospitalist Progress Note ---
Date of Service February 16, 2021 Assessment & Plan Admission and Anticipated Discharge Date Admission Date: February 13, 2021 Subjective Around 7:30pm yesterday evening code jeniffer was called as patient was hypoxic. He just returned from CTA chest and ct head. Placed on bipap and received nebs treatment and he slowly improved. ABG was fine. CT head was ok but CTA chest showed pul. edema.. He was s/p dialysis and 3lts fluid taken out. and was seeming doing fine. But Around 2:30am today again he was complaining of very sob and was tachycardic at 140's. tachyapneic RR in 50-60's. Oxygenating fine on bipap. ABG was ok. Received neb, a dose of decadron as patinet was wheezing and rhonchi on exam and a dose of cardizem. Was not getting better. Ordered 1mg morphine. ABG was again fine. Received another dose of morphine 2mg. As patient was very tachyapneic was decided to intubate. Called the and notified and she was ok for intubation. Patient transferred to ICU and is s/p intubation and sedation . Results & Data Results & Data ([facility]) Vital Signs (Past 12 Hours) Vital Signs Temp Pulse Pulse Pulse Resp BP BP 02/16/21 07:54 76 20 02/16/21 06:40 37.5 C 87 0 L 02/16/21 06:30 37.6 C H 91 H 15 02/16/21 06:20 37.7 C H 106 H 31 H 02/16/21 06:10 37.7 C H 84 1 L 02/16/21 06:03 37.9 C H 86 0 L 118/70 02/16/21 06:00 37.9 C H 85 0 L 02/16/21 05:50 38.1 C H 84 02/16/21 05:40 38.2 C H 86 02/16/21 05:30 38.4 C H 84 12 02/16/21 05:27 20 02/16/21 05:20 38.6 C H 86 24 02/16/21 05:10 38.8 C H 84 24 02/16/21 05:03 39.0 C H 88 24 101/71 02/16/21 05:00 39.0 C H 85 24 02/16/21 04:50 39.3 C H 85 24 02/16/21 04:40 39.5 C H 87 24 02/16/21 04:30 39.8 C H 88 24 02/16/21 04:20 40.0 C H 89 24 02/16/21 04:10 40.2 C H 89 24 02/16/21 04:07 40.3 C H 89 24 91/53 L 02/16/21 04:05 40.3 C H 89 02/16/21 04:03 40.3 C H 90 02/16/21 04:00 40.4 C H 90 02/16/21 03:50 40.5 C H 96 H 28 H 126/81 02/16/21 03:40 40.6 C H 98 H 15 02/16/21 03:30 40.7 C H 103 H 20 02/16/21 03:24 40.7 C H 112 H 34 H 126/81 02/16/21 03:20 40.7 C H 120 H 26 H 02/16/21 03:16 40.7 C H 129 H 32 H 210/106 H 02/16/21 03:12 120 H 24 02/16/21 03:10 118 H 17 02/16/21 03:03 129 H 4 L 180/93 H 02/16/21 03:00 131 H 50 H 02/16/21 02:45 152 H 44 H 02/16/21 02:00 151 H 57 H 02/16/21 01:50 62 H 200/112 H 02/15/21 23:35 37.0 C 102 H 197/99 H 02/15/21 23:00 101 H 170/90 H 02/15/21 22:40 101 H 158/82 H 02/15/21 22:29 110 H 32 H 02/15/21 22:20 100 H 203/75 H 02/15/21 22:00 101 H 182/80 H Pulse Ox 02/16/21 07:54 95 02/16/21 06:40 92 02/16/21 06:30 92 02/16/21 06:20 83 L 02/16/21 06:10 93 02/16/21 06:03 93 02/16/21 06:00 93 02/16/21 05:50 93 02/16/21 05:40 93 02/16/21 05:30 95 02/16/21 05:27 02/16/21 05:20 96 02/16/21 05:10 96 02/16/21 05:03 97 02/16/21 05:00 97 02/16/21 04:50 96 02/16/21 04:40 95 02/16/21 04:30 94 02/16/21 04:20 92 02/16/21 04:10 92 02/16/21 04:07 92 02/16/21 04:05 92 02/16/21 04:03 92 02/16/21 04:00 94 02/16/21 03:50 93 02/16/21 03:40 92 02/16/21 03:30 94 02/16/21 03:24 91 02/16/21 03:20 96 02/16/21 03:16 93 02/16/21 03:12 100 02/16/21 03:10 100 02/16/21 03:03 98 02/16/21 03:00 100 02/16/21 02:45 02/16/21 02:00 100 02/16/21 01:50 97 02/15/21 23:35 02/15/21 23:00 02/15/21 22:40 02/15/21 22:29 100 02/15/21 22:20 02/15/21 22:00
--- NOTE | 2021-02-16 10:35 | Nephrology Progress Note ---
Date of Service February 16, 2021 Assessment & Plan (1) ESRD (end stage renal disease) on dialysis: Plan: ESRD on Wednesday hemodialysis via AV fistula with chronic volume overload issues and now intermittent hyperkalemia as well as C-19 pneumonia. He had 3 L removed at dialysis on February 14 here and another 3 L removed last evening. No HD today but plan for tomorrow 3.5 hours with goal 3 to 4 L fluid removal >>> Plan to run first treatment tomorrow so that could be extubated afterwards ideally if ready for extubation -Holding RONI given lung nodule Daily basic metabolic panel At hospital d/c will need to dialyze at [facility] d/t covid hx/status; duration of needing to do this is either 21 days from onset of sx or after 2 negative tests which would be done at dialysis, whichever soonerr Unfortunately no transportation available to [place] > pt would have to arrange (2) Pneumonia due to 2019-nCoV: Plan: per primary service and critical care. Complicated by COPD exacerbation/volume overload, with these latter problems per pulmonary more likely primary in his re spiratory distress. He is for outpatient lung nodule biopsy, now deferred due to his Covid status -dialysis as above (3) Fluid overload: Plan: Aggressive UF with dialysis as above; when taking p.o. again recommend 1.2 L fluid limit Admission and Anticipated Discharge Date Admission Date: February 13, 2021 Subjective Intubated this morning due to worsening respiratory distress. Dialysis that had been planned for this morning was moved back to last evening with [address] chest PE protocol and head CT Review of Systems Review of Systems: Unobtainable due to endotracheal tube Physical Exam Constitutional: well developed, well nourished and + mechanically ventilated; no acute distress Eyes: EOM intact bilaterally ENMT: Ears: no external ear abnormality Nose: no external nose abnormality Mouth: + dry oral mucous membranes Neck: no nuchal rigidity Respiratory: normal respiratory effort Auscultation: + diminished lung sounds Cardiovascular: Rate/Rhythm: regular rate and regular rhythm Extremities: + edema (2+ pedal) and + AV fistula (+t/b) Gastrointestinal (Abdomen): Inspection/Auscultation: normal bowel sounds Percussion/Palpation: abdomen soft; abdomen nontender Musculoskeletal: Extremities: strength 5/5 throughout Skin: no rashes, warm and dry Psychiatric: Orientation: alert and oriented x 3 Affect: + anxious affect Results & Data ([facility]) Vital Signs (Past 12 Hours) Vital Signs Temp Pulse Pulse Pulse Resp BP BP 02/16/21 10:00 36.2 C L 67 0 L 02/16/21 09:30 36.3 C L 66 0 L 02/16/21 09:03 36.4 C L 74 0 L 101/61 02/16/21 09:00 36.4 C L 67 0 L 02/16/21 08:30 36.6 C 81 0 L 02/16/21 08:03 36.8 C 95 H 9 L 127/70 02/16/21 08:00 36.8 C 93 H 30 H 02/16/21 07:54 76 20 02/16/21 07:30 36.9 C 76 0 L 02/16/21 07:00 37.2 C 82 0 L 02/16/21 06:40 37.5 C 87 0 L 02/16/21 06:30 37.6 C H 91 H 15 02/16/21 06:20 37.7 C H 106 H 31 H 02/16/21 06:10 37.7 C H 84 1 L 02/16/21 06:03 37.9 C H 86 0 L 118/70 02/16/21 06:00 37.9 C H 85 0 L 02/16/21 05:50 38.1 C H 84 02/16/21 05:40 38.2 C H 86 02/16/21 05:30 38.4 C H 84 12 02/16/21 05:27 20 02/16/21 05:20 38.6 C H 86 24 02/16/21 05:10 38.8 C H 84 24 02/16/21 05:03 39.0 C H 88 24 101/71 02/16/21 05:00 39.0 C H 85 24 02/16/21 04:50 39.3 C H 85 24 02/16/21 04:40 39.5 C H 87 24 02/16/21 04:30 39.8 C H 88 24 02/16/21 04:20 40.0 C H 89 24 02/16/21 04:10 40.2 C H 89 24 02/16/21 04:07 40.3 C H 89 24 91/53 L 02/16/21 04:05 40.3 C H 89 02/16/21 04:03 40.3 C H 90 02/16/21 04:00 40.4 C H 90 02/16/21 03:50 40.5 C H 96 H 28 H 126/81 02/16/21 03:40 40.6 C H 98 H 15 02/16/21 03:30 40.7 C H 103 H 20 02/16/21 03:24 40.7 C H 112 H 34 H 126/81 02/16/21 03:20 40.7 C H 120 H 26 H 02/16/21 03:16 40.7 C H 129 H 32 H 210/106 H 02/16/21 03:12 120 H 24 02/16/21 03:10 118 H 17 02/16/21 03:03 129 H 4 L 180/93 H 02/16/21 03:00 131 H 50 H 02/16/21 02:45 152 H 44 H 02/16/21 02:00 151 H 57 H 02/16/21 01:50 62 H 200/112 H 02/15/21 23:35 37.0 C 102 H 197/99 H 02/15/21 23:00 101 H 170/90 H 02/15/21 22:40 101 H 158/82 H Pulse Ox 02/16/21 10:00 98 02/16/21 09:30 98 02/16/21 09:03 02/16/21 09:00 96 02/16/21 08:30 95 02/16/21 08:03 90 02/16/21 08:00 02/16/21 07:54 95 02/16/21 07:30 94 02/16/21 07:00 92 02/16/21 06:40 92 02/16/21 06:30 92 02/16/21 06:20 83 L 02/16/21 06:10 93 02/16/21 06:03 93 02/16/21 06:00 93 02/16/21 05:50 93 02/16/21 05:40 93 02/16/21 05:30 95 02/16/21 05:27 02/16/21 05:20 96 02/16/21 05:10 96 02/16/21 05:03 97 02/16/21 05:00 97 02/16/21 04:50 96 02/16/21 04:40 95 02/16/21 04:30 94 02/16/21 04:20 92 02/16/21 04:10 92 02/16/21 04:07 92 02/16/21 04:05 92 02/16/21 04:03 92 02/16/21 04:00 94 02/16/21 03:50 93 02/16/21 03:40 92 02/16/21 03:30 94 02/16/21 03:24 91 02/16/21 03:20 96 02/16/21 03:16 93 02/16/21 03:12 100 02/16/21 03:10 100 02/16/21 03:03 98 02/16/21 03:00 100 02/16/21 02:45 02/16/21 02:00 100 02/16/21 01:50 97 02/15/21 23:35 02/15/21 23:00 02/15/21 22:40 Laboratory Results 02/16/21 05:23 02/16/21 05:[address] chest PE protocol Lungs and pleura: Small bilateral pleural effusions are seen. There is trace bilateral atelectasis. There is smooth interlobular septal thickening compatible with pulmonary edema. A 23 mm nodule is seen in the right upper lobe. Groundglass opacities are seen in the predominantly upper lobes. 7 mm nodule in the left lung base is unchanged. Heart and pericardium: There is cardiomegaly without evidence of pericardial effusion. Vessels: No evidence of pulmonary embolism. Severe atherosclerotic calcifications are seen. Mediastinum and tsering: Unremarkable. Chest wall and lower neck: Unremarkable. Abdomen: Unremarkable. Bones: Unremarkable. IMPRESSION: 1. No evidence of pulmonary embolism. 2. Cardiomegaly and emphysema with moderate pulmonary edema. 3. Redemonstration of right upper lobe spiculated nodule which remains suspicious for malignancy. 7 mm nodule in the lung base on the left is unchang ed. 4. Pleural effusions. 5. Additional findings as above. Head CT without acute intracranial process
--- NOTE | 2021-02-16 12:58 | Communication Note ---
Date of Service: February 16, 2021 Critical CARE addendum: Patient seen and examined at bedside. No acute distress, He was intubated earlier today because of respiratory distress. At the time of examination patient was on 30% FiO2 saturating 93-94% He was on fentanyl as well as propofol Constitutional: No acute distress HEENT: EOMI, PERRLA Respiratory system: Decreased air entry bilaterally, no wheeze, no rhonchi, positive crackles bilateral lower lobes CVS: S1-S2 positive, no murmurs or gallops Abdomen: Soft, nontender, nondistended, positive bowel sounds x4 Extremities: +2 pulses bilaterally radialis/ dorsalis pedis, no cyanosis, no edema Neuro: Sedated, breathing with vent Psych: Unable to assess G/U: No Hutchinson Plan: Head CT was negative. Continue with vent support for the time being Patient supposed to get dialysis tomorrow We will plan for SBT tomorrow CT chest personally reviewed. Patient has right upper lobe nodule which would be a malignancy or pneumonia. Pulmonary saw the patient on 01/10/2021 for the right upper lobe pulmonary nodule and plan was to have a PET/CT as an outpatient as well as MRI of the brain. I am not sure if patient had this done. PET/CT as an outpatient again would be recommended. I have personally spent additional 30 minutes of critical care time in the direct management of this patient. This is a life/limb threatening event. This includes time spent evaluating patient, direct bedside care, chart review, placing orders, interpretation of diagnostic studies, discussion with consultants, patient, and family members, as well as other required patient management activities. This time is exclusive of all separately billable procedures, and teaching time and separate from and in addition to any other critical care service time. Please note the above document was generated using voice recognition software. It may contain grammatical, syntax or spelling errors. Coding Level of Care Code Critical Care binta [email or web address] 30 min
--- NOTE | 2021-02-16 13:41 | Hospitalist Progress Note ---
Date of Service February 16, 2021 Assessment & Plan (1) Shortness of breath: (2) Chronic kidney disease with end stage renal failure on dialysis: (3) COVID-19: (4) Hypothyroidism: (5) DVT prophylaxis: Plan: Shortness of breath, cough and subjective fever Was briefly on nasal oxygen in ER +COVID test CXR - moderate pulm edema. B/L Lower lung opacities which could be atelectasis, pneumonia or alveolar edema COVID 19 pneumonia Was intubated overnight for respiratory distress Got HD overnight Remains intubated and sedated [employer] Pellet[employer] on board for vent management Wean vent per protocol. Probably extubate in 24-48hrs Continue IV dexamethasone On Ceftriaxone/Doxycycline Executive Officer on board Plan for HD tomorrow Hep sq for DVT ppx Admission and Anticipated Discharge Date Admission Date: February 13, 2021 Subjective 70-year-old male with past medical history significant for type 2 diabetes, end- stage renal disease, on hemodialysis; history of hyperthyroidism, history of hyperlipidemia, history of Graves' disease, postoperative hypothyroidism, COPD, hypertension, mild aortic stenosis, atrial fibrillation, renal osteodystrophy, g eneralized osteoarthritis, gouty arthropathy, chronic tobacco use, who was recently in the hospital for right leg cellulitis, fluid overload who presented on 02/14/21 for shortness of breath and cough. Found to have pulmonary edema, +COVID pneumonia Patient was briefly on nasal oxygen. Patient has been getting HD inpt. Patient was doing fine yesterday, off oxygen. However later in the evening, he developed acute worsening shortness of breath and hallucination. CT PE did not show PE but showed pulm edema/pleural effusions. Patient was intubated overnight for respiratory distress Patient seen and examined Currently intubated/sedated Review of Systems Review of Systems: Unobtainable due to endotracheal tube Physical Exam Constitutional: Intubated and sedated ENMT: ETT in situ Respiratory: Intubated, diminished breath sounds Cardiovascular: Rate/Rhythm: regular rate and regular rhythm S1 S2 Gastrointestinal (Abdomen): normal bowel sounds, soft, nontender, no hepatosplenomegaly Musculoskeletal: +pedal edema Neurologic: Intubated/Sedated Limited exam Results & Data Results & Data ([facility]) Vital Signs (Past 12 Hours) Vital Signs Temp Pulse Pulse Resp BP BP Pulse Ox 01/09/22 11:23 16 02/16/21 10:29 78 20 99 02/16/21 10:00 36.2 C L 67 0 L 98 02/16/21 09:30 36.3 C L 66 0 L 98 02/16/21 09:03 36.4 C L 74 0 L 101/61 02/16/21 09:00 36.4 C L 67 0 L 96 02/16/21 08:30 36.6 C 81 0 L 95 02/16/21 08:03 36.8 C 95 H 9 L 127/70 90 02/16/21 08:00 36.8 C 93 H 30 H 02/16/21 07:54 76 20 95 02/16/21 07:30 36.9 C 76 0 L 94 02/16/21 07:00 37.2 C 82 0 L 92 02/16/21 06:40 37.5 C 87 0 L 92 02/16/21 06:30 37.6 C H 91 H 15 92 02/16/21 06:20 37.7 C H 106 H 31 H 83 L 02/16/21 06:10 37.7 C H 84 1 L 93 02/16/21 06:03 37.9 C H 86 0 L 118/70 93 02/16/21 06:00 37.9 C H 85 0 L 93 02/16/21 05:50 38.1 C H 84 93 02/16/21 05:40 38.2 C H 86 93 02/16/21 05:30 38.4 C H 84 12 95 02/16/21 05:27 20 02/16/21 05:20 38.6 C H 86 24 96 02/16/21 05:10 38.8 C H 84 24 96 02/16/21 05:03 39.0 C H 88 24 101/71 97 02/16/21 05:00 39.0 C H 85 24 97 02/16/21 04:50 39.3 C H 85 24 96 02/16/21 04:40 39.5 C H 87 24 95 02/16/21 04:30 39.8 C H 88 24 94 02/16/21 04:20 40.0 C H 89 24 92 02/16/21 04:10 40.2 C H 89 24 92 02/16/21 04:07 40.3 C H 89 24 91/53 L 92 02/16/21 04:05 40.3 C H 89 92 02/16/21 04:03 40.3 C H 90 92 02/16/21 04:00 40.4 C H 90 94 02/16/21 03:50 40.5 C H 96 H 28 H 126/81 93 02/16/21 03:40 40.6 C H 98 H 15 92 02/16/21 03:30 40.7 C H 103 H 20 94 02/16/21 03:24 40.7 C H 112 H 34 H 126/81 91 02/16/21 03:20 40.7 C H 120 H 26 H 96 02/16/21 03:16 40.7 C H 129 H 32 H 210/106 H 93 02/16/21 03:12 120 H 24 100 02/16/21 03:10 118 H 17 100 02/16/21 03:03 129 H 4 L 180/93 H 98 02/16/21 03:00 131 H 50 H 100 02/16/21 02:45 152 H 44 H 02/16/21 02:00 151 H 57 H 100 02/16/21 01:50 62 H 200/112 H 97 Laboratory Results Abnormal lab results 02/15/21 02/15/21 02/15/21 Range/Units 18:51 18:51 19:38 WBC 18.46 H (4.8-10.8) K/uL RBC 4.16 L (4.7-6.1) M/uL Hgb 12.3 L (14.0-18.0) g/dL POC Hgb 10.2 L (14.0-18.0) g/dl Hct 38.6 L (42-52) % POC Hct 30 L (42-52) % MCHC 31.9 L (32-36) g/dL RDW Std Deviation 59.5 H (36.4-46.3) fL RDW Coeff of Shaylee 17.8 H (11.5-14.5) % Neut # (Auto) (1.4-6.5) K/uL Lymph # (Auto) (1.2-3.4) K/uL [place] # (Auto) (0.11-0.59) K/uL Immature Gran # (Auto) (0.00-0.02) K/uL POC pH (7.35-7.45) POC pO2 > 420 H (80-95) mmHg POC HCO3 (19-24) rekha/L POC Total CO2 22 L (24-31) mmol/L POC Base Excess (-9-1.8) rekha/L ABG pH (Temp Correct) (7.35-7.45) POC ABG O2 Sat 100.0 H (90-95) % POC Sodium 127 L (135-144) mmol/L Sodium 129 L (136-145) mmol/L POC Potassium 5.6 H (3.3-5.0) mmol/L Potassium 5.5 H (3.5-5.1) mmol/L Chloride 96 L (98-107) mmol/L BUN 45 H (7-18) mg/dl Creatinine 5.12 H* D (0.6-1.4) mg/dl BUN/Creatinine Ratio 8.8 L (10-20) POC Glucose (70-99) mg/dl Calcium (8.5-10.1) mg/dl 02/15/21 02/16/21 02/16/21 Range/Units 20:05 00:03 02:23 WBC (4.8-10.8) K/uL RBC (4.7-6.1) M/uL Hgb (14.0-18.0) g/dL POC Hgb (14.0-18.0) g/dl Hct (42-52) % POC Hct (42-52) % MCHC (32-36) g/dL RDW Std Deviation (36.4-46.3) fL RDW Coeff of Shaylee (11.5-14.5) % Neut # (Auto) (1.4-6.5) K/uL Lymph # (Auto) (1.2-3.4) K/uL [place] # (Auto) (0.11-0.59) K/uL Immature Gran # (Auto) (0.00-0.02) K/uL POC pH (7.35-7.45) POC pO2 (80-95) mmHg POC HCO3 27 H (19-24) rekha/L POC Total CO2 (24-31) mmol/L POC Base Excess 3.0 H (-9-1.8) rekha/L ABG pH (Temp Correct) (7.35-7.45) POC ABG O2 Sat 97.0 H (90-95) % POC Sodium (135-144) mmol/L Sodium (136-145) mmol/L POC Potassium (3.3-5.0) mmol/L Potassium (3.5-5.1) mmol/L Chloride (98-107) mmol/L BUN (7-18) mg/dl Creatinine (0.6-1.4) mg/dl BUN/Creatinine Ratio (10-20) POC Glucose 110 H 56 L* (70-99) mg/dl Calcium (8.5-10.1) mg/dl 02/16/21 02/16/21 02/16/21 Range/Units 05:23 05:23 05:27 WBC 14.96 H (4.8-10.8) K/uL RBC 3.23 L (4.7-6.1) M/uL Hgb 9.3 L D (14.0-18.0) g/dL POC Hgb 9.5 L (14.0-18.0) g/dl Hct 29.2 L (42-52) % POC Hct 28 L (42-52) % MCHC 31.8 L (32-36) g/dL RDW Std Deviation 56.2 H (36.4-46.3) fL RDW Coeff of Shaylee 17.2 H (11.5-14.5) % Neut # (Auto) 13.32 H (1.4-6.5) K/uL Lymph # (Auto) 0.29 L (1.2-3.4) K/uL [place] # (Auto) 1.25 H (0.11-0.59) K/uL Immature Gran # (Auto) 0.08 H (0.00-0.02) K/uL POC pH 7.51 H* (7.35-7.45) POC pO2 74 L (80-95) mmHg POC HCO3 29 H (19-24) rekha/L POC Total CO2 (24-31) mmol/L POC Base Excess 6.0 H (-9-1.8) rekha/L ABG pH (Temp Correct) 7.489 H (7.35-7.45) POC ABG O2 Sat 96.0 H (90-95) % POC Sodium 132 L (135-144) mmol/L Sodium 132 L (136-145) mmol/L POC Potassium (3.3-5.0) mmol/L Potassium (3.5-5.1) mmol/L Chloride (98-107) mmol/L BUN 29 H (7-18) mg/dl Creatinine 3.78 H D (0.6-1.4) mg/dl BUN/Creatinine Ratio 7.8 L (10-20) POC Glucose (70-99) mg/dl Calcium 7.9 L (8.5-10.1) mg/dl 02/16/21 Range/Units 11:34 WBC (4.8-10.8) K/uL RBC (4.7-6.1) M/uL Hgb (14.0-18.0) g/dL POC Hgb (14.0-18.0) g/dl Hct (42-52) % POC Hct (42-52) % MCHC (32-36) g/dL RDW Std Deviation (36.4-46.3) fL RDW Coeff of Shaylee (11.5-14.5) % Neut # (Auto) (1.4-6.5) K/uL Lymph # (Auto) (1.2-3.4) K/uL [place] # (Auto) (0.11-0.59) K/uL Immature Gran # (Auto) (0.00-0.02) K/uL POC pH (7.35-7.45) POC pO2 (80-95) mmHg POC HCO3 (19-24) rekha/L POC Total CO2 (24-31) mmol/L POC Base Excess (-9-1.8) rekha/L ABG pH (Temp Correct) (7.35-7.45) POC ABG O2 Sat (90-95) % POC Sodium (135-144) mmol/L Sodium (136-145) mmol/L POC Potassium (3.3-5.0) mmol/L Potassium (3.5-5.1) mmol/L Chloride (98-107) mmol/L BUN (7-18) mg/dl Creatinine (0.6-1.4) mg/dl BUN/Creatinine Ratio (10-20) POC Glucose 142 H (70-99) mg/dl Calcium (8.5-10.1) mg/dl
--- NOTE | 2021-02-16 15:21 | Pharmacy Report ---
Pharmacy Glycemic Short Note 2 - Date of Service February 16, 2021 - Glycemic Short BSG Results (Last 24 hours): 02/15/21 02/15/21 02/15/21 16:54 18:50 18:51 Glucose 90 POC Glucose 82 83 02/15/21 02/16/21 02/16/21 20:05 00:03 00:29 Glucose POC Glucose 110 H 56 L* 80 02/16/21 02/16/21 02/16/21 04:14 05:23 07:44 Glucose 71 POC Glucose 81 93 02/16/21 11:34 Glucose POC Glucose 142 H OUTPATIENT ANTIDIABETIC REGIMEN: * n/a ASSESSMENT: 02/16: * Patient received total 33 units of insulin yesterday; 20 units basal + 13 units bolus. * BSG trended down to 56 mg/dl around midnight yesterday, most likely d/t late hemo-dialysis session. * Fasting BSG today = 93 mg/dl. Since patient was hypoglycemic last night and fasting lower today, basal insulin was discontinued this AM. * BSG trended up to 142 mg/dl before lunch today. No changes made to Novolog parameters. 02/14/21: * Mr Gustafson is a 70 y/o M with a PMH of ESRD on HD who presents with COVID- 19. He was started on dexamethasone 6 mg IV daily yesterday. * Patient's BSG on admission was 161 mg/dL (prior to dexamethasone) then 275 mg/dL at night. * Morning fasting was 297 mg/dL on PRP and 245 mg/dL on POC. * Patient with hyperkalemia so given 10 units IV insulin with 1/2 amp of D50. * Start NPH 25 units (0.3 units/kg). Novolog weight-based stress of 2 for now as patient is insulin sensitive. PLAN FOR INPATIENT GLYCEMIC CONTROL: * Basal insulin * None for today * Bolus insulin * NovoLog per scale ACHS or Q6hrs while NPO * Goal Range: Low 110 mg/dL - High 140 mg/dL * Correction Factor: 25 mg/dL/unit * Nutritional / Prandial insulin per carb ratio of 1 unit per 8 grams CHO consumed PLAN FOR DISCHARGE: * HbA1C is not accurate in an individual with ESRD on HD. * Recommend monitoring blood sugars as an outpatient and following up with provider to make adjustments to medication regimen as appropriate.
[2021-02-16] MEDS: NOREPINEPHRINE/D5W 8 MG/508 ML BAG IV SCH (17:25)
[2021-02-17] MEDS: cefTRIAXone SODIUM 2,000 MG in DEXTROSE 5% 50 ML IV SCH (00:42)
[2021-02-17] MEDS: fentaNYL citrate 2,500 MCG/250 ML BAG IV SCH (02:19)
[2021-02-17 03:45] LABS: iSTAT Arterial Blood Gas HCO3 25 meg/L (19-24); iSTAT Arterial Blood Gas pCO2 43 mmHg (35-46); iSTAT Arterial Blood Gas pH 7.37 (7.35-7.45); iSTAT Arterial Blood Gas pO2 81 mmHg (80-95); iSTAT Carbon Dioxide 26 mmol/L (24-31); iSTAT FiO2 30 %; iSTAT Site Art Line
[2021-02-17] MEDS: LEVOTHYROXINE SODIUM 125 MCG TABLET PO SCH (05:41)
[2021-02-17] MEDS: HEPARIN SOD 5,000 UNIT/0.5 ML VIAL SQ SCH ×3 (05:41→20:25)
--- NOTE | 2021-02-17 05:47 | Electrocardiogram Report ---
Test Reason : Blood Pressure : / mmHG Vent. Rate : 094 BPM Atrial Rate : 094 BPM P-R Int : 146 ms QRS Dur : 090 ms QT Int : 356 ms P-R-T Axes : 023 038 070 degrees QTc Int : 445 ms Normal sinus rhythm Possible Inferior infarct , age undetermined Abnormal ECG When compared with ECG of 13-FEB-2021 17:00, No significant change was found Confirmed by Venkata Antonio ([id number]) on 02/17/2021 5:47:26 AM Referred By: Sabino Murphy Confirmed By:Venkata Antonio
[2021-02-17 06:40] LABS: Basophils # (auto) 0.01 K/uL (0-0.2); Basophils % (auto) 0.1 %; Hematocrit (blood only) 30.9 % (42-52); Hemoglobin 9.7 g/dL (14.0-18.0); Immature Granulocytes # (auto) 0.03 K/uL (0.00-0.02); Immature Granulocytes % (auto) 0.3 %; Lymphocytes # (auto) 0.88 K/uL (1.2-3.4); Lymphocytes % (auto) 9.1 %; Mean Corpuscular Hemoglobin 28.5 pg (25-34); Mean Corpuscular Hgb Conc 31.4 g/dL (32-36); Mean Corpuscular Volume 90.9 fL (80-100); Mean Platelet Volume 10.8 fL (7.4-10.4); Monocytes # (auto) 0.63 K/uL (0.11-0.59); Monocytes % (auto) 6.5 %; Neutrophils # (auto) 8.17 K/uL (1.4-6.5); Platelet Count 236 K/uL (130-400); RDW Coefficient of Variation 17.4 % (11.5-14.5); RDW Standard Deviation 56.7 fL (36.4-46.3); White Blood Count 9.72 K/uL (4.8-10.8)
[2021-02-17] MEDS ORDERED: SODIUM CHLORIDE 0.9% 1000ML 1,000 ML IV PRN (07:00)
[2021-02-17] MEDS ORDERED: HEPARIN SOD (PORCINE) 1000 UNIT/ML IV ONE (07:00)
[2021-02-17 07:33] LABS: BUN Creatinine Ratio 10.4 (10-20); Calcium 7.3 mg/dl (8.5-10.1); Creatinine Clr Calc Pharmacy 12.8 ml/min; Est GFR (African American) 11.4 ml/min; Est GFR (Non-African American) 9.8 ml/min; Magnesium 2.6 mg/dl (1.8-2.4); Phosphorus 8.8 mg/dl (2.5-4.9); Potassium 5.8 mmol/L (3.5-5.1)
[2021-02-17] MEDS: propofoL 1,000 MG/100 ML VIAL IV SCH ×3 (07:56→17:19)
--- NOTE | 2021-02-17 08:24 | XRay Report ---
XR chest 1V portable CLINICAL HISTORY: Hypoxia TECHNIQUE: Single frontal radiograph of the chest was obtained. Comparison: Comparison is made to chest one view 02/16/2021 FINDINGS: Lines and tubes are stable. The cardiomediastinal silhouette is normal. Interval development of a lef t retrocardiac airspace opacity. There is likely a right lower lung airspace opacity as well. No pneu mothorax is seen, pleural effusions cannot be excluded. IMPRESSION: Left retrocardiac airspace opacity and likely right lower lung airspace opacity. These likely represe nt atelectasis, pneumonia, and/or aspiration. Possible bilateral pleural effusions. ACT 112: Negative or not required by law. Electronically signed by: Baudilio Aly M.D. 02/17/2021 8:23 AM
[2021-02-17] MEDS: HEPARIN SOD (PORCINE) 1000 UNIT/ML IV SCH ×3 (08:35→09:22)
[2021-02-17] MEDS: SEVELAMER HCL 800 MG TABLET PO SCH ×3 (09:02→16:14)
[2021-02-17] MEDS: UMECLIDINIUM/VILANTEROL 62.5/25MCG 7 PUFFS/INHALER INH SCH (09:04)
[2021-02-17] MEDS: INSULIN ASPART PER UNIT SC SCH ×4 (09:19→20:24)
[2021-02-17] MEDS: NICOTINE 21 MG/24 HR TDSY TD SCH (10:28)
--- NOTE | 2021-02-17 10:50 | Hospitalist Progress Note ---
Date of Service February 17, 2021 Assessment & Plan (1) Shortness of breath: (2) Chronic kidney disease with end stage renal failure on dialysis: (3) COVID-19: (4) Hypothyroidism: (5) DVT prophylaxis: Plan: COVID 19 pneumonia Fluid overload Acute respiratory failure with hypoxia Shortness of breath, cough and subjective fever Was briefly on nasal oxygen in ER +COVID test CXR - moderate pulm edema. 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 On levophed. Wean as tolerated Continue IV dexamethasone Had fever with Tmax of 40.3 on 02/16/21 Cultures in lab negative so far On Ceftriaxone/Doxycycline Linen Clerk on board Continue HD Hep sq for DVT ppx Admission and Anticipated Discharge Date Admission Date: February 13, 2021 Subjective 70-year-old male with past medical history significant for type 2 diabetes, end- stage renal disease, on hemodialysis; history of hyperthyroidism, history of hyperlipidemia, history of Graves' disease, postoperative hypothyroidism, COPD, hypertension, mild aortic stenosis, atrial fibrillation, renal osteodystrophy, generalized osteoarthritis, gouty arthropathy, chronic tobacco use, who was rec ently in the hospital for right leg cellulitis, fluid overload who presented on 02/14/21 for shortness of breath and cough. Found to have pulmonary edema, +COVID pneumonia Patient was briefly on nasal oxygen. Patient has been getting HD inpt. Patient was intubated on 02/16/21 for respiratory distress Patient seen and examined Currently intubated/sedated Review of Systems Review of Systems: Unobtainable due to endotracheal tube Physical Exam Constitutional: Intubated and sedated ENMT: ETT in situ Respiratory: Intubated, diminished breath sounds Cardiovascular: Rate/Rhythm: regular rate and regular rhythm S1 S2 Gastrointestinal (Abdomen): normal bowel sounds, soft, nontender, no hepatosplenomegaly Musculoskeletal: +pedal edema Neurologic: Intubated and sedated Limited exam Results & Data Results & Data ([facility]) Vital Signs (Past 12 Hours) Vital Signs Temp Pulse Pulse Resp BP Pulse Ox 02/17/21 10:40 76 117/52 L 02/17/21 10:20 74 115/52 L 02/17/21 10:00 73 105/47 L 02/17/21 09:41 75 107/49 L 02/17/21 09:20 76 125/43 L 02/17/21 09:02 65 127/47 L 02/17/21 08:40 67 123/51 L 02/17/21 08:30 37.5 C 65 14 94 02/17/21 08:21 37.5 C 68 16 130/73 92 02/17/21 08:20 65 127/56 L 02/17/21 08:01 37.4 C 76 02/17/21 08:00 37.5 C 60 14 130/55 L 93 02/17/21 07:51 37.5 C 71 14 123/68 92 02/17/21 07:45 64 128/56 L 02/17/21 07:43 37.3 C 65 02/17/21 07:30 37.5 C 66 13 132/59 L 91 02/17/21 07:20 65 146/70 H 02/17/21 07:11 37.5 C 61 143/78 H 02/17/21 07:03 37.5 C 69 143/80 H 96 02/17/21 07:00 37.5 C 66 16 96 02/17/21 02:50 37.3 C 69 16 97 02/17/21 02:40 37.3 C 77 16 97 02/17/21 02:30 37.3 C 68 16 97 02/17/21 02:20 37.3 C 76 16 97 02/17/21 02:17 75 16 98 02/17/21 02:10 37.2 C 69 16 100 02/17/21 02:03 37.2 C 71 16 154/83 H 98 02/17/21 02:00 37.2 C 76 16 98 02/17/21 01:50 37.2 C 68 16 97 02/17/21 01:40 37.2 C 76 16 96 02/17/21 01:30 37.1 C 71 16 96 02/17/21 01:20 37.1 C 68 10 L 93 02/17/21 01:10 37.1 C 76 16 96 02/17/21 01:03 37.1 C 71 18 125/72 02/17/21 01:00 37.1 C 68 16 95 02/17/21 00:50 37.1 C 68 16 96 02/17/21 00:40 37.1 C 68 16 96 02/17/21 00:30 37.0 C 65 14 96 02/17/21 00:20 37.0 C 62 16 96 02/17/21 00:10 37.0 C 75 16 97 02/17/21 00:04 37.0 C 69 16 140/76 97 02/17/21 00:00 36.9 C 69 16 97 02/16/21 23:50 36.9 C 76 17 94 02/16/21 23:40 36.9 C 69 17 94 02/16/21 23:33 36.9 C 76 11 L 100/59 L 91 02/16/21 23:30 36.9 C 67 13 94 02/16/21 23:20 36.9 C 65 16 93 02/16/21 23:10 36.9 C 77 16 94 02/16/21 23:06 36.9 C 68 17 67/47 L 02/16/21 23:00 36.9 C 55 L 16 95 Laboratory Results Abnormal lab results 02/16/21 02/16/21 02/17/21 Range/Units 16:35 20:48 00:01 RBC (4.7-6.1) M/uL Hgb (14.0-18.0) g/dL Hct (42-52) % MCHC (32-36) g/dL RDW Std Deviation (36.4-46.3) fL RDW Coeff of Shaylee (11.5-14.5) % MPV (7.4-10.4) fL Neut # (Auto) (1.4-6.5) K/uL Lymph # (Auto) (1.2-3.4) K/uL Aiken # (Auto) (0.11-0.59) K/uL Immature Gran # (Auto) (0.00-0.02) K/uL POC HCO3 (19-24) rekha/L Sodium (136-145) mmol/L Potassium (3.5-5.1) mmol/L Chloride (98-107) mmol/L Anion Gap (3-11) BUN (7-18) mg/dl Creatinine (0.6-1.4) mg/dl Glucose (70-99) mg/dl POC Glucose 125 H 118 H 163 H (70-99) mg/dl Calcium (8.5-10.1) mg/dl Phosphorus (2.5-4.9) mg/dl Magnesium (1.8-2.4) mg/dl 02/17/21 02/17/21 02/17/21 Range/Units 03:26 05:25 05:25 RBC 3.40 L (4.7-6.1) M/uL Hgb 9.7 L (14.0-18.0) g/dL Hct 30.9 L (42-52) % MCHC 31.4 L (32-36) g/dL RDW Std Deviation 56.7 H (36.4-46.3) fL RDW Coeff of Shaylee 17.4 H (11.5-14.5) % MPV 10.8 H (7.4-10.4) fL Neut # (Auto) 8.17 H (1.4-6.5) K/uL Lymph # (Auto) 0.88 L (1.2-3.4) K/uL Aiken # (Auto) 0.63 H (0.11-0.59) K/uL Immature Gran # (Auto) 0.03 H (0.00-0.02) K/uL POC HCO3 25 H (19-24) rekha/L Sodium 128 L (136-145) mmol/L Potassium 5.8 H D (3.5-5.1) mmol/L Chloride 93 L (98-107) mmol/L Anion Gap 12.0 H (3-11) BUN 56 H D (7-18) mg/dl Creatinine 5.40 H* D (0.6-1.4) mg/dl Glucose 169 H (70-99) mg/dl POC Glucose (70-99) mg/dl Calcium 7.3 L (8.5-10.1) mg/dl Phosphorus 8.8 H D (2.5-4.9) mg/dl Magnesium 2.6 H (1.8-2.4) mg/dl 02/17/21 02/17/21 Range/Units 07:57 11:56 RBC (4.7-6.1) M/uL Hgb (14.0-18.0) g/dL Hct (42-52) % MCHC (32-36) g/dL RDW Std Deviation (36.4-46.3) fL RDW Coeff of Shaylee (11.5-14.5) % MPV (7.4-10.4) fL Neut # (Auto) (1.4-6.5) K/uL Lymph # (Auto) (1.2-3.4) K/uL Aiken # (Auto) (0.11-0.59) K/uL Immature Gran # (Auto) (0.00-0.02) K/uL POC HCO3 (19-24) rekha/L Sodium (136-145) mmol/L Potassium (3.5-5.1) mmol/L Chloride (98-107) mmol/L Anion Gap (3-11) BUN (7-18) mg/dl Creatinine (0.6-1.4) mg/dl Glucose (70-99) mg/dl POC Glucose 148 H 126 H (70-99) mg/dl Calcium (8.5-10.1) mg/dl Phosphorus (2.5-4.9) mg/dl Magnesium (1.8-2.4) mg/dl
[2021-02-17] MEDS: DOXYCYCLINE HYCLATE 100 MG in DEXTROSE 5% 100 ML IV SCH ×2 (11:25→20:22)
[2021-02-17] MEDS: FAMOTIDINE 20 MG in SYRINGE 3 ML IV SCH (11:25)
[2021-02-17] MEDS: rOPINIRole HCL 1 MG TABLET PO SCH (11:31)
[2021-02-17] MEDS: METOPROLOL TARTRATE 100 MG TAB PO SCH (11:32)
[2021-02-17] MEDS: dexAMETHasone 6 MG in SYRINGE 0 ML IV SCH (11:51)
--- NOTE | 2021-02-17 12:03 | Dialysis Progress Note ---
Date of Service February 17, 2021 Assessment & Plan Admission and Anticipated Discharge Date Admission Date: February 13, 2021 Subjective Assessment & Plan (1) ESRD (end stage renal disease) on dialysis: Plan: ESRD on Wednesday hemodialysis via AV fistula with chronic volume overload issues and now intermittent hyperkalemia as well as C-19 pneumonia. He had 3.8 L removed today on dialysis Plan to run first -Holding RONI given lung nodule Daily basic metabolic panel At hospital d/c will need to dialyze at [facility] d/t covid hx/status; duration of needing to do this is either 21 days from onset of sx or after 2 negative tests which would be done at dialysis, whichever sooner Unfortunately no transportation available to [place] > pt would have to arrange (2) Pneumonia due to 2019-nCoV: Plan: per primary service and critical care. Complicated by COPD exacerbation/volume overload, with these latter problems per pulmonary more likely primary in his respiratory distress. He is for outpatient lung nodule biopsy, now deferred due to his Covid status--Likely Cancer. (3) Fluid overload: Plan: Aggressive UF with dialysis as above; when taking p.o. again recommend 1.2 L fluid limit Admission and Anticipated Discharge Date Admission Date: February 13, 2021 Subjective Still Intubated due to worsening respiratory distress. Review of Systems Review of Systems: Unobtainable due to endotracheal tube Physical Exam Constitutional: well developed, well nourished and + mechanically ventilated; no acute distress Eyes: EOM intact bilaterally ENMT: Ears: no external ear abnormality Nose: no external nose abnormality Mouth: + dry oral mucous membranes Neck: no nuchal rigidity Respiratory: normal respiratory effort Auscultation: + diminished lung sounds Cardiovascular: Rate/Rhythm: regular rate and regular rhythm Extremities: + edema (2+ pedal) and + AV fistula (+t/b) Gastrointestinal (Abdomen): Inspection/Auscultation: normal bowel sounds Percussion/Palpation: abdomen soft; abdomen nontender Musculoskeletal: Extremities: strength 5/5 throughout Skin: no rashes, warm and dry Psychiatric: Orientation: alert and oriented x 3 Affect: + anxious affect Results & Data ([facility]) Vital Signs (Past 12 Hours) Vital Signs Temp Pulse Pulse Resp BP Pulse Ox 02/17/21 11:54 80 16 96 02/17/21 10:40 76 117/52 L 01/10/22 10:20 74 115/52 L 02/17/21 10:00 73 105/47 L 02/17/21 09:41 75 107/49 L 02/17/21 09:20 76 125/43 L 02/17/21 09:02 65 127/47 L 02/17/21 08:40 67 123/51 L 02/17/21 08:30 37.5 C 65 14 94 02/17/21 08:21 37.5 C 68 16 130/73 92 02/17/21 08:20 65 127/56 L 02/17/21 08:01 37.4 C 76 02/17/21 08:00 37.5 C 60 14 130/55 L 93 02/17/21 07:51 37.5 C 71 14 123/68 92 02/17/21 07:45 64 128/56 L 02/17/21 07:43 37.3 C 65 02/17/21 07:30 37.5 C 66 13 132/59 L 91 02/17/21 07:20 65 146/70 H 02/17/21 07:11 37.5 C 61 143/78 H 02/17/21 07:03 37.5 C 69 143/80 H 96 02/17/21 07:00 37.5 C 66 16 96 02/17/21 02:50 37.3 C 69 16 97 02/17/21 02:40 37.3 C 77 16 97 02/17/21 02:30 37.3 C 68 16 97 02/17/21 02:20 37.3 C 76 16 97 02/17/21 02:17 75 16 98 02/17/21 02:10 37.2 C 69 16 100 02/17/21 02:03 37.2 C 71 16 154/83 H 98 02/17/21 02:00 37.2 C 76 16 98 02/17/21 01:50 37.2 C 68 16 97 02/17/21 01:40 37.2 C 76 16 96 02/17/21 01:30 37.1 C 71 16 96 02/17/21 01:20 37.1 C 68 10 L 93 02/17/21 01:10 37.1 C 76 16 96 02/17/21 01:03 37.1 C 71 18 125/72 02/17/21 01:00 37.1 C 68 16 95 02/17/21 00:50 37.1 C 68 16 96 02/17/21 00:40 37.1 C 68 16 96 02/17/21 00:30 37.0 C 65 14 96 02/17/21 00:20 37.0 C 62 16 96 02/17/21 00:10 37.0 C 75 16 97 02/17/21 00:04 37.0 C 69 16 140/76 97
--- NOTE | 2021-02-17 14:47 | Critical Care Progress Note ---
Date of Service February 17, 2021 Assessment & Plan (1) Admitted to intensive care unit: Plan: Attending: Dr. Mcmanus Impression: 70-year-old male with significant respiratory distress in the setting of volume overload, COPD, and COVID-19 pneumonia requiring emergent en dotracheal intubation with ongoing management. Patient intubated 02/16/2021. Patient also requiring hemodialysis Wednesdays and Fridays. Imaging reviewed. Patient most likely has right upper lobe malignancy with spiculated mass. He was to have follow-up studies this week for diagnosis. NEURO - * Sedation: Propofol * Pain: Fentanyl CARDIAC/VASCULAR - * Hypertension, hyperlipidemia, CHF: * Continue home medications as tolerated. Expect degree of blood pressure management utilizing sedation as required. * Monitor on telemetry. RESPIRATORY - * Respiratory failure: * Endotracheal intubation 02/16/2021. Endotracheal tube is 3 cm from the dinh * Currently ventilated with settings AC, 400, 16, 5, 30%. Plateau pressure is 12.6. Respiratory rate currently is 16 * Continue with sedation. Currently synchronous with ventilator. If this changes patient may need paralytics. * Chest x-ray from today reviewed. Possible developing pleural effusions. Multifocal opacities again appreciated. * CT chest from 02/15/2021 reviewed. Spiculated 2.3 cm nodule appreciated in the right upper lobe. Most likely malignant considering tobacco abuse history. * Continue ARDSnet protocol GI/NUTRITION - * OGT in place. May use for medications and tube feeds. * Prophylaxis: Famotidine RENAL/LYTES - * End-stage renal disease on hemodialysis Wednesday/Wednesday/Wednesday: * Appreciate nephrology ongoing management. * Discussed with Dr. Bojorquez today. We will continue fluid management with hemodialysis - * Makes minimal amounts of urine. Continue Hutchinson catheter ENDO - * DMII * BSGs per unit protocol. ISS --> gtt per unit policy. * * Postoperative hypothyroidism. * Patient previously admitted 02/03/2021 and found to have elevated TSH and low T4. At that time epic chart was reviewed and levothyroxine was last adjusted in June 2020. Levothyroxine was increased to 137.5 mcg daily at that time. TSH is now 9.87 (down from 20.5). Continue levothyroxine at 125 mcg daily. Should have follow-up in 6 weeks HEME - * Stable H&H ID - * LE Cellulitis: * Rocephin started on 02/14/2021 * Fevers: * Will add blood, sputum, Urine (if able) cultures. * Doxycycline started 02/16/2021 when patient was intubated * Covid 19 pneumonia: * Unable to receive remdesivir 2/2 renal function. * Continue Dexamethasone 6mg daily (today is day 4 of 10) * Not a candidate for baricitinib or tocilizumab due to end-stage renal disease * No other interventions recommended at this time. Continue supportive care * Matilda updated by phone LINES/IV ACCESS - * PIVs x1 * ETT * OGT * RIGHT Radial Art line placed 02/16/2021 DVT PROPHYLAXIS - * Heparin 5000 units subcu every 8 hours * SCDs Disposition: Long discussion with patient's Joan by phone. She is aware the patient is in critical condition. At this time she feels that he would like to remain a full code including cardiac compressions and reasonable resuscitation. The patient has no biological children or adopted children. His only other living relative is a sister. His will keep her updated. I have personally spent 40 minutes of critical care time in the direct management of this patient. This is a life/limb threatening event. This includes time spent evaluating patient, direct bedside care, chart review, placing orders, interpretation of diagnostic studies, discussion with consultants, patient, and family members, as well as other required patient management activities. This time is exclusive of all separately billable procedures, and teaching time and separate from and in addition to any other critical care service time. Thank you for allowing us to participate in the care of this patient. Please refer to Dr. Mcmanus's addendum for any further recommendations. (2) Respiratory failure: (3) Pneumonia due to 2019-nCoV: (4) COPD (chronic obstructive pulmonary disease): (5) Diastolic CHF: (6) ESRD (end stage renal disease): Admission and Anticipated Discharge Date Admission Date: February 13, 2021 Supervising Physician Co-Signing Physician Notes Patient seen and examined. Discussed on MDR and with CC TONY. Cont HD today with aggressive volume removal. Anticipate SBT and possible extubation in AM. Continue DEX for COVID. RUL nodule susp for malignancy - being evaluated at [facility]. Needs outpatient PET and biopsy +/- EBUS depending on PET results. Weaning pressors as tolerated. CXr today with new LLL collapse and/or effusion. Cont to follow. No indication for bronchoscopy currently. Subjective Attending: Dr. Mcmanus Patient seen and examined in room 201. He remains ventilated. Current settings are AC 400, 14, 5, 30%. Patient saturating 94%. Plateau pressure is 12.6. Respiratory rate is 16. Patient intubated 02/16/2021. Arterial line placed 02/16/2021. Discussion with Joan. She believes that wishes to remain a full code and spite of his poor prognosis including COVID, probable lung cancer, and end-stage renal disease requiring dialysis. Review of Systems Review of Systems: Unobtainable due to endotracheal tube Physical Exam Physical Exam: GENERAL : No acute distress EYES: No icterus, gaze conjugate NOSE: No evidence of epistaxis MOUTH: No lesions or candidiasis NECK: Supple LUNGS: Patient is generally clear. Remains on ventilator. Current respiratory rate 16 HEART: Regular, rate controlled ABDOMEN: Soft, NT, ND, BS Present EXTREMITIES: No LE edema, pedal pulses intact NEURO: Patient mechanically ventilated. Patient is also sedated. Results & Data Results & Data ([facility]) Vital Signs (Past 12 Hours) Vital Signs Temp Pulse Pulse Resp BP BP Pulse Ox 02/17/21 12:00 80 02/17/21 11:54 80 16 96 02/17/21 11:05 37.5 C 72 167/65 H 02/17/21 10:40 76 117/52 L 02/17/21 10:20 74 115/52 L 02/17/21 10:00 73 105/47 L 02/17/21 09:41 75 107/49 L 02/17/21 09:20 76 125/43 L 02/17/21 09:02 65 127/47 L 02/17/21 08:40 67 123/51 L 02/17/21 08:30 37.5 C 65 14 94 02/17/21 08:21 37.5 C 68 16 130/73 92 02/17/21 08:20 65 127/56 L 02/17/21 08:01 37.4 C 76 02/17/21 08:00 37.5 C 60 14 130/55 L 93 02/17/21 07:51 37.5 C 71 14 123/68 92 02/17/21 07:45 64 128/56 L 02/17/21 07:43 37.3 C 65 02/17/21 07:30 37.5 C 66 13 132/59 L 91 02/17/21 07:20 65 146/70 H 02/17/21 07:11 37.5 C 61 143/78 H 02/17/21 07:03 37.5 C 69 143/80 H 96 02/17/21 07:00 37.5 C 66 16 96 02/17/21 02:50 37.3 C 69 16 97 Critical Care Results & Data Vital Signs (Past 12 Hours) Vital Signs Temp Pulse Pulse Resp BP BP Pulse Ox 02/17/21 12:00 80 02/17/21 11:54 80 16 96 02/17/21 11:05 37.5 C 72 167/65 H 02/17/21 10:40 76 117/52 L 02/17/21 10:20 74 115/52 L 02/17/21 10:00 73 105/47 L 02/17/21 09:41 75 107/49 L 02/17/21 09:20 76 125/43 L 02/17/21 09:02 65 127/47 L 02/17/21 08:40 67 123/51 L 02/17/21 08:30 37.5 C 65 14 94 02/17/21 08:21 37.5 C 68 16 130/73 92 02/17/21 08:20 65 127/56 L 02/17/21 08:01 37.4 C 76 02/17/21 08:00 37.5 C 60 14 130/55 L 93 02/17/21 07:51 37.5 C 71 14 123/68 92 02/17/21 07:45 64 128/56 L 02/17/21 07:43 37.3 C 65 02/17/21 07:30 37.5 C 66 13 132/59 L 91 02/17/21 07:20 65 146/70 H 02/17/21 07:11 37.5 C 61 143/78 H 02/17/21 07:03 37.5 C 69 143/80 H 96 02/17/21 07:00 37.5 C 66 16 96 Lab & Micro Results (Past 24 Hours) RBC 3.40 M/uL (4.7-6.1) L 02/17/21 WBC 9.72 K/uL (4.8-10.8) 02/17/21 Hgb 9.7 g/dL (14.0-18.0) L 02/17/21 Hct 30.9 % (42-52) L 02/17/21 MCV 90.9 fL (80-100) 02/17/21 MCH 28.5 pg (25-34) 02/17/21 MCHC 31.4 g/dL (32-36) L 02/17/21 RDW Standard Deviation 56.7 fL (36.4-46.3) H 02/17/21 RDW Coefficient of Variation 17.4 % (11.5-14.5) H 02/17/21 Plt Count 236 K/uL (130-400) 02/17/21 MPV 10.8 fL (7.4-10.4) H 02/17/21 Neutrophils (%) (Auto) 84.0 % 02/17/21 Lymphocytes (%) (Auto) 9.1 % 02/17/21 Monocytes # (Auto) 0.63 K/uL (0.11-0.59) H 02/17/21 Eosinophils # (Auto) 0.00 K/uL (0-0.5) 02/17/21 Immature Granulocyte % (Auto) 0.3 % 02/17/21 Neutrophils # (Auto) 8.17 K/uL (1.4-6.5) H 02/17/21 Lymphocytes # (Auto) 0.88 K/uL (1.2-3.4) L 02/17/21 Monocytes # (Auto) 0.63 K/uL (0.11-0.59) H 02/17/21 Eosinophils # (Auto) 0.00 K/uL (0-0.5) 02/17/21 Basophils # (Auto) 0.01 K/uL (0-0.2) 02/17/21 Immature Granulocyte # (Auto) 0.03 K/uL (0.00-0.02) H 02/17/21 Na 128 mmol/L (136-145) L 02/17/21 K 5.8 mmol/L (3.5-5.1) H 02/17/21 Cl 93 mmol/L (98-107) L 02/17/21 CO2 23 mmol/L (21-32) 02/17/21 Anion Gap 12.0 (3-11) H 02/17/21 BUN 56 mg/dl (7-18) H 02/17/21 Creatinine 5.40 mg/dl (0.6-1.4) H* 02/17/21 Estimated GFR ( Amer) 11.4 ml/min 02/17/21 Estimated GFR (Non-Af Amer) 9.8 ml/min 02/17/21 BUN/Creatinine Ratio 10.4 (10-20) 02/17/21 Glu 169 mg/dl (70-99) H 02/17/21 Ca 7.3 mg/dl (8.5-10.1) L 02/17/21 Phosphorus Level 8.8 mg/dl (2.5-4.9) H 02/17/21 Mg 2.6 mg/dl (1.8-2.4) H 02/17/21 05:25 02/17/21 Calcium Level 7.3 mg/dl (8.5-10.1) L 02/17/21 05:25 02/17/21 Ryan Test NA 02/17/21 03:26 02/17/21 Microbiology 02/16/21 08:05 Gram Stain - Final Sputum,Vent Suction Sputum Culture - Preliminary Light normal ibeth present, final report to follow. 02/16/21 06:33 Aerobic Blood Culture - Preliminary Blood No growth in Aerobic bottle after 24 hours. Anaerobic Blood Culture - Preliminary No growth in Anaerobic bottle after 24 hours. 02/16/21 06:35 Aerobic Blood Culture - Preliminary Blood No growth in Aerobic bottle after 24 hours. Anaerobic Blood Culture - Preliminary No growth in Anaerobic bottle after 24 hours. Diagnostic Findings (Past 24 Hours) Chest X-Ray 02/17/21 06:00 XR chest 1V portable CLINICAL HISTORY: Hypoxia TECHNIQUE: Single frontal radiograph of the chest was obtained. Comparison: Comparison is made to chest one view 02/16/2021 FINDINGS: Lines and tubes are stable. The cardiomediastinal silhouette is normal. Interval development of a left retrocardiac airspace opacity. There is likely a right lower lung airspace opacity as well. No pneumothorax is seen, pleural effusions cannot be excluded. IMPRESSION: Left retrocardiac airspace opacity and likely right lower lung airspace opacity. These likely represent atelectasis, pneumonia, and/or aspiration. Possible bilateral pleural effusions. ACT 112: Negative or not required by law. Electronically signed by: Baudilio Aly M.D. 02/17/2021 8:23 AM I & O Totals 24 Hours 02/16/21 02/17/21 02/18/21 06:59 06:59 06:59 Intake Total 964.020 / 964.020 497.514 / 497.514 607.710 / 607.710 Output Total 50 / 50 0 / 0 Balance 964.020 / 964.020 447.514 / 447.514 607.710 / 607.710 Cumulative 02/13/21 16:11 thru 02/17/21 14:24 Intake Total 4629.244 Output Total 400 Balance 4229.244 RT Ventilator Mngmt (Last Documented) Ventilator Ordered Settings Ventilator Support Mode Assist Control 02/17/21 12:00 Respiratory Rate [Recovery] 20 02/15/21 13:35 Respiratory Rate [Exercise] 20 02/15/21 13:35 Respiratory Rate [Resting] 16 02/15/21 13:35 Respiratory Rate 16 02/17/21 11:54 Ventilator Tidal Volume 400 02/17/21 12:00 Setting Minute Ventilation 6.4 02/17/21 11:54 Positive End Expiratory 5 02/17/21 12:00 Pressure Fraction of Inspired Oxygen 30 02/17/21 12:00 Machine Comment Rate change by Dr. Yanez 02/16/21 11:23 Ventilator - PT Measurements Respiratory Rate [Recovery] 20 Respiratory Rate [Exercise] 20 Respiratory Rate [Resting] 16 Respiratory Rate 16 Exhaled Tidal Volume 401 Minute Ventilation 6.4 Peak Inspiratory Airway 19 Pressure Plateau Pressure 12.6 Respiratory Cycle Inspiratory: 1:3.7 Expiratory Ratio Inspiratory Phase Time 0.80 End-Tidal CO2 37 Static Lung Compliance 52.76 Dynamic Lung Compliance 28.64 Normal Static Lung Compliance 47.00 Patient Measurements Comment Patient receiving Dialysis at this time Coding Level of Care Code Critical Care 1st 30-74 mins Diagnoses Admitted to intensive care unit Z78.9 Respiratory failure J96.90 Pneumonia due to 2019-nCoV U07.1; J12.82 COPD (chronic obstructive pulmonary disease) J44.9 COPD type: unspecified COPD Diastolic CHF I50.33 Heart failure chronicity: acute on chronic ESRD (end stage renal disease) N18.6 Time Spent (min) 40 (1) Diastolic CHF Heart failure chronicity: acute on chronic Qualified Code(s): I50.33 - Acute on chronic diastolic (congestive) heart failure (2) COPD (chronic obstructive pulmonary disease) COPD type: unspecified COPD Qualified Code(s): J44.9 - Chronic obstructive pulmonary disease, unspecified
[2021-02-17] MEDS: ACETAMINOPHEN 325 MG TAB PO PRN (16:14)
[2021-02-17] MEDS: NOREPINEPHRINE/D5W 8 MG/508 ML BAG IV SCH (19:13)
[2021-02-17] MEDS: CYCLOBENZAPRINE HCL 10 MG TAB PO SCH (20:23)
[2021-02-18] MEDS: propofoL 1,000 MG/100 ML VIAL IV SCH ×4 (00:04→19:25)
[2021-02-18] MEDS: cefTRIAXone SODIUM 2,000 MG in DEXTROSE 5% 50 ML IV SCH ×2 (00:13→23:46)
[2021-02-18 04:01] LABS: iSTAT Arterial Blood Gas HCO3 25 meg/L (19-24); iSTAT Arterial Blood Gas pCO2 40 mmHg (35-46); iSTAT Arterial Blood Gas pH 7.41 (7.35-7.45); iSTAT Arterial Blood Gas pO2 93 mmHg (80-95); iSTAT Carbon Dioxide 27 mmol/L (24-31); iSTAT FiO2 30 %; iSTAT Site Art Line
[2021-02-18] MEDS: LEVOTHYROXINE SODIUM 125 MCG TABLET PO SCH (05:37)
[2021-02-18] MEDS: HEPARIN SOD 5,000 UNIT/0.5 ML VIAL SQ SCH ×3 (05:37→21:13)
[2021-02-18 06:28] LABS: Basophils # (auto) 0.01 K/uL (0-0.2); Basophils % (auto) 0.1 %; Eosinophils # (auto) 0.04 K/uL (0-0.5); Eosinophils % (auto) 0.5 %; Hematocrit (blood only) 29.8 % (42-52); Hemoglobin 9.5 g/dL (14.0-18.0); Immature Granulocytes % (auto) 1.2 %; Lymphocytes # (auto) 1.15 K/uL (1.2-3.4); Lymphocytes % (auto) 14.2 %; Mean Corpuscular Hemoglobin 28.9 pg (25-34); Mean Corpuscular Hgb Conc 31.9 g/dL (32-36); Mean Corpuscular Volume 90.6 fL (80-100); Monocytes # (auto) 0.71 K/uL (0.11-0.59); Monocytes % (auto) 8.8 %; Neutrophils # (auto) 6.07 K/uL (1.4-6.5); Neutrophils % (auto) 75.2 %; Platelet Count 223 K/uL (130-400); RDW Coefficient of Variation 17.4 % (11.5-14.5); RDW Standard Deviation 57.2 fL (36.4-46.3); Red Blood Count 3.29 M/uL (4.7-6.1); White Blood Count 8.08 K/uL (4.8-10.8)
[2021-02-18] MEDS: fentaNYL citrate 2,500 MCG/250 ML BAG IV SCH (06:31)
[2021-02-18 07:28] LABS: BUN Creatinine Ratio 10.5 (10-20); Calcium 7.4 mg/dl (8.5-10.1); Creatinine Clr Calc Pharmacy 13.9 ml/min; Est GFR (African American) 12.5 ml/min; Est GFR (Non-African American) 10.8 ml/min; Magnesium 2.4 mg/dl (1.8-2.4); Phosphorus 6.6 mg/dl (2.5-4.9); Potassium 4.7 mmol/L (3.5-5.1)
[2021-02-18] MEDS: INSULIN ASPART PER UNIT SC SCH ×4 (07:54→21:13)
--- NOTE | 2021-02-18 08:13 | XRay Report ---
XR chest 1V portable CLINICAL HISTORY: f/u COMPARISON STUDY: Chest CT February 15, 2021. Chest radiograph February 17, 2021. FINDINGS: Tip of endotracheal tube is approximately 2.3 cm above the dinh. Tip of nasogastric tube is below the lower aspect of this image but at least within the body of the stomach. There is no pneu mothorax. Right upper lobe nodule is again noted. Interstitial thickening suggests pulmonary edema. B ibasilar opacities are again noted, including retrocardiac opacity. Small to moderate left and small right pleural effusions are noted. IMPRESSION: 1. Tip of endotracheal tube approximately 2.3 cm above the dinh. 2. Persistent pulmonary edema, bilateral pleural effusions and bibasilar opacities, greater on the le ft. This includes dense retrocardiac opacity which may reflect consolidation or atelectasis. ACT 112: Negative or not required by law. Electronically signed by: Jose Hastings M.D. 02/18/2021 8:12 AM
[2021-02-18] MEDS: DOXYCYCLINE HYCLATE 100 MG in DEXTROSE 5% 100 ML IV SCH ×2 (09:04→21:12)
[2021-02-18] MEDS: SEVELAMER HCL 800 MG TABLET PO SCH ×3 (09:04→16:35)
[2021-02-18] MEDS: UMECLIDINIUM/VILANTEROL 62.5/25MCG 7 PUFFS/INHALER INH SCH (09:04)
[2021-02-18] MEDS: FAMOTIDINE 20 MG in SYRINGE 3 ML IV SCH (09:05)
[2021-02-18] MEDS: dexAMETHasone 6 MG in SYRINGE 0 ML IV SCH (09:05)
[2021-02-18] MEDS: rOPINIRole HCL 1 MG TABLET PO SCH (09:08)
--- NOTE | 2021-02-18 10:48 | Nephrology Progress Note ---
Date of Service February 18, 2021 Assessment & Plan Admission and Anticipated Discharge Date Admission Date: February 13, 2021 Subjective Assessment & Plan (1) ESRD (end stage renal disease) on dialysis: Plan: ESRD on Wednesday hemodialysis via AV fistula with chronic volume overload issues and now intermittent hyperkalemia as well as C-19 pneumonia. He had 3.8 L removed yesterday on dialysis Plan to run tomorrow -Holding RONI given lung nodule Daily basic metabolic panel At hospital d/c will need to dialyze at [facility] d/t covid hx/status; duration of needing to do this is either 21 days from onset of sx or after 2 negative tests which would be done at dialysis, whichever sooner Unfortunately no transportation available to [place] > pt would have to arrange (2) Pneumonia due to Covid : Plan: per primary service and critical care. Complicated by COPD exacerbation/volume overload, with these latter problems per pulmonary more likely primary in his respiratory distress. He is for outpatient lung nodule biopsy, now deferred due to his Covid status--Likely Cancer. Plan is for extubation today. (3) Fluid overload: Plan: Aggressive UF with dialysis as above; when taking p.o. again recommend 1.2 L fluid limit. Plan for 3.5 kilo tomororow again. 3.5 hrs. Admission and Anticipated Discharge Date Admission Date: February 13, 2021 Subjective Still Intubated . Had Dialysis yesterday 3.8 liter removed.. Review of Systems Review of Systems: Unobtainable due to endotracheal tube Physical Exam Constitutional: well developed, well nourished and + mechanically ventilated; no acute distress Eyes: EOM intact bilaterally ENMT: Ears: no external ear abnormality Nose: no external nose abnormality Mouth: + dry oral mucous membranes Neck: no nuchal rigidity Respiratory: normal respiratory effort Auscultation: + diminished lung sounds Cardiovascular: Rate/Rhythm: regular rate and regular rhythm Extremities: + edema (2+ pedal) and + AV fistula (+t/b) Gastrointestinal (Abdomen): Inspection/Auscultation: normal bowel sounds Percussion/Palpation: abdomen soft; abdomen nontender Musculoskeletal: Extremities: strength 5/5 throughout Skin: no rashes, warm and dry Psychiatric: Orientation: alert and oriented x 3 Affect: + anxious affect Results & Data ([facility]) Vital Signs (Past 12 Hours) Vital Signs Temp Pulse Resp Pulse Ox 02/18/21 08:00 36.8 C 67 02/18/21 07:15 67 16 98 02/18/21 02:35 60 16 98
--- NOTE | 2021-02-18 12:11 | Hospitalist Progress Note ---
Date of Service February 18, 2021 Assessment & Plan (1) Shortness of breath: (2) Chronic kidney disease with end stage renal failure on dialysis: (3) COVID-19: (4) Hypothyroidism: (5) DVT prophylaxis: Plan: COVID 19 pneumonia Fluid overload Acute respiratory failure with hypoxia Shortness of breath, cough and subjective fever Was briefly on nasal oxygen in ER +COVID test CXR - moderate pulm edema. B/L Lower lung opacities which could be atelectasis, pneumonia or alveolar edema Was intubated 02/16/21 for respiratory distress Remains intubated Off sedation Second Worker on board for vent management Possible extubation today Continue IV dexamethasone Had fever yesterday Cultures in lab negative so far On Ceftriaxone/Doxycycline Terrazzo Worker on board Continue HD Hep sq for DVT ppx Admission and Anticipated Discharge Date Admission Date: February 13, 2021 Subjective 70-year-old male with past medical history significant for type 2 diabetes, end- stage renal disease, on hemodialysis; history of hyperthyroidism, history of hyperlipidemia, history of Graves' disease, postoperative hypothyroidism, COPD, hypertension, mild aortic stenosis, atrial fibrillation, renal osteodystrophy, generalized osteoarthritis, gouty arthropathy, chronic tobacco use, who was recently in the hospital for right leg cellulitis, fluid overload who presented on 02/14/21 for shortness of breath and cough. Found to have pulmonary edema, +COVID pneumonia Patient was briefly on nasal oxygen. Patient has been getting HD inpt. Patient was intubated on 02/16/21 for respiratory distress Patient seen and examined Currently intubated. Off sedation. Patient awake and alert follows commands Review of Systems Review of Systems: Unobtainable due to endotracheal tube Physical Exam Constitutional: Intubated. Awake and alert Eyes: PERRL, conjunctivae normal, anicteric sclerae ENMT: ETT in situ Respiratory: Intubated, diminished breath sounds Cardiovascular: Rate/Rhythm: regular rate and regular rhythm S1 S2 Gastrointestinal (Abdomen): normal bowel sounds, soft, nontender, no hepatosplenomegaly Musculoskeletal: +pedal edema Neurologic: Awake and alert but intubated Limited exam Results & Data Results & Data ([facility]) Vital Signs (Past 12 Hours) Vital Signs Temp Pulse Resp BP Pulse Ox 02/18/21 11:30 37.5 C 89 13 94 02/18/21 11:00 37.4 C 90 96 02/18/21 10:54 37.3 C 83 154/71 H 95 02/18/21 10:30 37.3 C 67 98 02/18/21 10:00 37.3 C 58 L 97 02/18/21 09:54 37.3 C 60 143/75 H 98 02/18/21 09:30 37.3 C 57 L 97 02/18/21 09:00 37.2 C 58 L 98 02/18/21 08:54 37.2 C 58 L 130/67 98 02/18/21 08:30 37.2 C 69 97 02/18/21 08:00 37.2 C 57 L 97 02/18/21 07:54 37.2 C 71 124/60 97 02/18/21 07:30 37.2 C 55 L 14 97 02/18/21 07:15 67 16 98 02/18/21 07:00 37.2 C 56 L 16 122/64 98 02/18/21 02:35 60 16 98 Laboratory Results Abnormal lab results 02/17/21 02/17/21 02/18/21 Range/Units 16:01 20:16 03:48 RBC (4.7-6.1) M/uL Hgb (14.0-18.0) g/dL Hct (42-52) % MCHC (32-36) g/dL RDW Std Deviation (36.4-46.3) fL RDW Coeff of Shaylee (11.5-14.5) % MPV (7.4-10.4) fL Lymph # (Auto) (1.2-3.4) K/uL Vernon # (Auto) (0.11-0.59) K/uL Immature Gran # (Auto) (0.00-0.02) K/uL POC HCO3 25 H (19-24) rekha/L POC ABG O2 Sat 97.0 H (90-95) % Sodium (136-145) mmol/L Chloride (98-107) mmol/L BUN (7-18) mg/dl Creatinine (0.6-1.4) mg/dl Glucose (70-99) mg/dl POC Glucose 126 H 144 H (70-99) mg/dl Calcium (8.5-10.1) mg/dl Phosphorus (2.5-4.9) mg/dl 02/18/21 02/18/21 02/18/21 Range/Units 05:54 05:54 07:46 RBC 3.29 L (4.7-6.1) M/uL Hgb 9.5 L (14.0-18.0) g/dL Hct 29.8 L (42-52) % MCHC 31.9 L (32-36) g/dL RDW Std Deviation 57.2 H (36.4-46.3) fL RDW Coeff of Shaylee 17.4 H (11.5-14.5) % MPV 11.0 H (7.4-10.4) fL Lymph # (Auto) 1.15 L (1.2-3.4) K/uL Vernon # (Auto) 0.71 H (0.11-0.59) K/uL Immature Gran # (Auto) 0.10 H (0.00-0.02) K/uL POC HCO3 (19-24) rekha/L POC ABG O2 Sat (90-95) % Sodium 131 L (136-145) mmol/L Chloride 96 L (98-107) mmol/L BUN 52 H (7-18) mg/dl Creatinine 4.98 H* D (0.6-1.4) mg/dl Glucose 135 H (70-99) mg/dl POC Glucose 122 H (70-99) mg/dl Calcium 7.4 L (8.5-10.1) mg/dl Phosphorus 6.6 H D (2.5-4.9) mg/dl 02/18/21 Range/Units 12:03 RBC (4.7-6.1) M/uL Hgb (14.0-18.0) g/dL Hct (42-52) % MCHC (32-36) g/dL RDW Std Deviation (36.4-46.3) fL RDW Coeff of Shaylee (11.5-14.5) % MPV (7.4-10.4) fL Lymph # (Auto) (1.2-3.4) K/uL Vernon # (Auto) (0.11-0.59) K/uL Immature Gran # (Auto) (0.00-0.02) K/uL POC HCO3 (19-24) rekha/L POC ABG O2 Sat (90-95) % Sodium (136-145) mmol/L Chloride (98-107) mmol/L BUN (7-18) mg/dl Creatinine (0.6-1.4) mg/dl Glucose (70-99) mg/dl POC Glucose 180 H (70-99) mg/dl Calcium (8.5-10.1) mg/dl Phosphorus (2.5-4.9) mg/dl
--- NOTE | 2021-02-18 16:33 | Critical Care Progress Note ---
Date of Service February 18, 2021 Assessment & Plan (1) Admitted to intensive care unit: Plan: Attending: Dr. Mcmanus Impression: 70-year-old male with significant respiratory distress in the setting of volume overload, COPD, and COVID-19 pneumonia requiring emergent en dotracheal intubation with ongoing management. Patient intubated 02/16/2021. Patient also requiring hemodialysis Wednesdays and Fridays. Imaging reviewed. Patient most likely has right upper lobe malignancy with spiculated mass. He was to have follow-up studies this week for diagnosis. Patient is improving and anticipate extubation today. NEURO - * Sedated with Propofol and Fentanyl * Wean sedation off anticipation of extubation CARDIAC/VASCULAR - * Hypertension, hyperlipidemia, CHF: * Continue home medications as tolerated. Expect degree of blood pressure management utilizing sedation as required. * Will need to provide IV antihypertensives once extubated as patient will be n.p.o. until tomorrow morning when a swallow study can be completed. * Continue to monitor on telemetry. RESPIRATORY - * Respiratory failure: * Endotracheal intubation 02/16/2021. Endotracheal tube is 3 cm from the dinh. Expect extubation today * Currently ventilated with settings AC, 400, 16, 5, 30%. Plateau pressure is 12.6. Respiratory rate currently is 16 * Wean off sedation. Currently synchronous with ventilator. * Chest x-ray from today reviewed. Left lower lobe collapse. We will repeat chest x-ray after patient is extubated. Focus on pulmonary toileting * CT chest from 02/15/2021 reviewed. Spiculated 2.3 cm nodule appreciated in the right upper lobe. Most likely malignant considering tobacco abuse history. * Once patient is alert and oriented, initiate incentive spirometry and flutter valve GI/NUTRITION - * OGT in place. May use for medications and tube feeds. * Prophylaxis: Continue famotidine RENAL/LYTES - * End-stage renal disease on hemodialysis Wednesday/Wednesday/Wednesday: * Appreciate nephrology ongoing management. * Discussed with Dr. Bojorquez again today. Dialysis planned for tomorrow. We will continue fluid management with hemodialysis - * Patient has been anuric. Continue with hemodialysis for fluid management. ENDO - * DMII * BSGs per unit protocol. ISS --> gtt per unit policy. * Hold sevelamer and continue with subcutaneous insulin * Postoperative hypothyroidism. * Patient previously admitted 02/03/2021 and found to have elevated TSH and low T4. At that time epic chart was reviewed and levothyroxine was last adjusted in June 2020. Levothyroxine was increased to 137.5 mcg daily at that time. TSH is now 9.87 (down from 20.5). Continue levothyroxine at 125 mcg daily. Should have follow-up in 6 weeks HEME - * Stable H&H ID - * LE Cellulitis: * Rocephin started on 02/14/2021 * Fevers: * Will add blood, sputum, Urine (if able) cultures. * Doxycycline started 02/16/2021 when patient was intubated * Covid 19 pneumonia: * Unable to receive remdesivir 2/2 renal function. * Continue Dexamethasone 6mg daily (today is day 4 of 10) * Not a candidate for baricitinib or tocilizumab due to end-stage renal disease * No other interventions recommended at this time. Continue supportive care * Matilda updated by phone today as well as in person LINES/IV ACCESS - * PIVs x1 * ETT -anticipate extubation today * OGT -this will be removed with extubation. Bedside swallow per protocol once stable * RIGHT Radial Art line placed 02/16/2021 DVT PROPHYLAXIS - * Heparin 5000 units subcu every 8 hours * SCDs Disposition: Plan will be for extubation today. Patient is doing much better. Updated on 2 occasions today. I have personally spent 40 minutes of critical care time in the direct management of this patient. This is a life/limb threatening event. This includes time spent evaluating patient, direct bedside care, chart review, placing orders, interpretation of diagnostic studies, discussion with consultants, patient, and family members, as well as other required patient management activities. This time is exclusive of all separately billable procedures, and teaching time and separate from and in addition to any other critical care service time. Thank you for allowing us to participate in the care of this patient. Please refer to Dr. Mcmanus's addendum for any further recommendations. (2) Respiratory failure: (3) Pneumonia due to 2019-nCoV: (4) COPD (chronic obstructive pulmonary disease): (5) Diastolic CHF: (6) ESRD (end stage renal disease): Admission and Anticipated Discharge Date Admission Date: February 13, 2021 Subjective Attending: Dr. Mcmanus Patient seen and examined in room 201. He is doing well on the ventilator. He is currently on AC 400, 16, 5, 30% with a plateau pressure of 15.9. I have instructed respiratory therapy to put him on pressure support at 6/5. I also instructed the nurse to decrease sedation. It is anticipated that we will be able to extubate the patient today. Review of Systems Review of Systems: Unobtainable due to endotracheal tube Physical Exam Physical Exam: GENERAL : No acute distress EYES: No icterus, gaze conjugate NOSE: No evidence of epistaxis MOUTH: No lesions or candidiasis. Endotracheal tube in place. Orogastric tube in place. NECK: Supple LUNGS: CTA B/L, no wheezes, rales or rhonchi HEART: Regular, rate controlled ABDOMEN: Soft, NT, ND, BS Present EXTREMITIES: No LE edema, pedal pulses intact NEURO: Currently sedated for mechanical ventilation. Results & Data Results & Data ([facility]) Vital Signs (Past 12 Hours) Vital Signs Temp Pulse Resp BP Pulse Ox 02/18/21 13:00 37.4 C 80 19 93 02/18/21 12:54 37.4 C 92 H 21 174/85 H 93 02/18/21 12:30 37.5 C 80 19 91 02/18/21 12:10 89 16 94 02/18/21 12:00 37.5 C 91 H 17 96 02/18/21 11:55 37.5 C 99 H 30 H 146/74 H 95 02/18/21 11:30 37.5 C 89 13 94 02/18/21 11:00 37.4 C 90 96 02/18/21 10:55 79 19 95 02/18/21 10:54 37.3 C 83 154/71 H 95 02/18/21 10:45 74 16 96 02/18/21 10:30 37.3 C 67 98 02/18/21 10:00 37.3 C 58 L 97 02/18/21 09:54 37.3 C 60 143/75 H 98 02/18/21 09:30 37.3 C 57 L 97 02/18/21 09:00 37.2 C 58 L 98 02/18/21 08:54 37.2 C 58 L 130/67 98 02/18/21 08:30 37.2 C 69 97 02/18/21 08:00 37.2 C 57 L 97 02/18/21 07:54 37.2 C 71 124/60 97 02/18/21 07:30 37.2 C 55 L 14 97 02/18/21 07:15 67 16 98 02/18/21 07:00 37.2 C 56 L 16 122/64 98 Critical Care Results & Data Vital Signs (Past 12 Hours) Vital Signs Temp Pulse Resp BP Pulse Ox 02/18/21 13:00 37.4 C 80 19 93 02/18/21 12:54 37.4 C 92 H 21 174/85 H 93 02/18/21 12:30 37.5 C 80 19 91 02/18/21 12:10 89 16 94 02/18/21 12:00 37.5 C 91 H 17 96 02/18/21 11:55 37.5 C 99 H 30 H 146/74 H 95 02/18/21 11:30 37.5 C 89 13 94 02/18/21 11:00 37.4 C 90 96 02/18/21 10:55 79 19 95 02/18/21 10:54 37.3 C 83 154/71 H 95 02/18/21 10:45 74 16 96 02/18/21 10:30 37.3 C 67 98 02/18/21 10:00 37.3 C 58 L 97 02/18/21 09:54 37.3 C 60 143/75 H 98 02/18/21 09:30 37.3 C 57 L 97 02/18/21 09:00 37.2 C 58 L 98 02/18/21 08:54 37.2 C 58 L 130/67 98 02/18/21 08:30 37.2 C 69 97 02/18/21 08:00 37.2 C 57 L 97 02/18/21 07:54 37.2 C 71 124/60 97 02/18/21 07:30 37.2 C 55 L 14 97 02/18/21 07:15 67 16 98 02/18/21 07:00 37.2 C 56 L 16 122/64 98 Lab & Micro Results (Past 24 Hours) RBC 3.29 M/uL (4.7-6.1) L 02/18/21 WBC 8.08 K/uL (4.8-10.8) 02/18/21 Hgb 9.5 g/dL (14.0-18.0) L 02/18/21 Hct 29.8 % (42-52) L 02/18/21 MCV 90.6 fL (80-100) 02/18/21 MCH 28.9 pg (25-34) 02/18/21 MCHC 31.9 g/dL (32-36) L 02/18/21 RDW Standard Deviation 57.2 fL (36.4-46.3) H 02/18/21 RDW Coefficient of Variation 17.4 % (11.5-14.5) H 02/18/21 Plt Count 223 K/uL (130-400) 02/18/21 MPV 11.0 fL (7.4-10.4) H 02/18/21 Neutrophils (%) (Auto) 75.2 % 02/18/21 Lymphocytes (%) (Auto) 14.2 % 02/18/21 Monocytes # (Auto) 0.71 K/uL (0.11-0.59) H 02/18/21 Eosinophils # (Auto) 0.04 K/uL (0-0.5) 02/18/21 Immature Granulocyte % (Auto) 1.2 % 02/18/21 Neutrophils # (Auto) 6.07 K/uL (1.4-6.5) 02/18/21 Lymphocytes # (Auto) 1.15 K/uL (1.2-3.4) L 02/18/21 Monocytes # (Auto) 0.71 K/uL (0.11-0.59) H 02/18/21 Eosinophils # (Auto) 0.04 K/uL (0-0.5) 02/18/21 Basophils # (Auto) 0.01 K/uL (0-0.2) 02/18/21 Immature Granulocyte # (Auto) 0.10 K/uL (0.00-0.02) H 02/18/21 Na 131 mmol/L (136-145) L 02/18/21 K 4.7 mmol/L (3.5-5.1) 02/18/21 Cl 96 mmol/L (98-107) L 02/18/21 CO2 24 mmol/L (21-32) 02/18/21 Anion Gap 11.0 (3-11) 02/18/21 BUN 52 mg/dl (7-18) H 02/18/21 Creatinine 4.98 mg/dl (0.6-1.4) H* 02/18/21 Estimated GFR ( Amer) 12.5 ml/min 02/18/21 Estimated GFR (Non-Af Amer) 10.8 ml/min 02/18/21 BUN/Creatinine Ratio 10.5 (10-20) 02/18/21 Glu 135 mg/dl (70-99) H 02/18/21 Ca 7.4 mg/dl (8.5-10.1) L 02/18/21 Phosphorus Level 6.6 mg/dl (2.5-4.9) H 02/18/21 Mg 2.4 mg/dl (1.8-2.4) 02/18/21 05:54 02/18/21 Calcium Level 7.4 mg/dl (8.5-10.1) L 02/18/21 05:54 02/18/21 Rayn Test NA 02/18/21 03:48 02/18/21 Microbiology 02/16/21 08:05 Gram Stain - Final Sputum,Vent Suction Sputum Culture - Final Light normal ibeth. 02/16/21 06:33 Aerobic Blood Culture - Preliminary Blood No growth in Aerobic bottle after 48 hours. Anaerobic Blood Culture - Preliminary No growth in Anaerobic bottle after 48 hours. 02/16/21 06:35 Aerobic Blood Culture - Preliminary Blood No growth in Aerobic bottle after 48 hours. Anaerobic Blood Culture - Preliminary No growth in Anaerobic bottle after 48 hours. Diagnostic Findings (Past 24 Hours) Chest X-Ray 02/18/21 07:00 XR chest 1V portable CLINICAL HISTORY: f/u COMPARISON STUDY: Chest CT February 15, 2021. Chest radiograph February 17, 2021. FINDINGS: Tip of endotracheal tube is approximately 2.3 cm above the dinh. Tip of nasogastric tube is below the lower aspect of this image but at least within the body of the stomach. There is no pneumothorax. Right upper lobe nodule is again noted. Interstitial thickening suggests pulmonary edema. Bibasilar opacities are again noted, including retrocardiac opacity. Small to moderate left and small right pleural effusions are noted. IMPRESSION: 1. Tip of endotracheal tube approximately 2.3 cm above the dinh. 2. Persistent pulmonary edema, bilateral pleural effusions and bibasilar opacities, greater on the left. This includes dense retrocardiac opacity which may reflect consolidation or atelectasis. ACT 112: Negative or not required by law. Electronically signed by: Jose Hastings M.D. 02/18/2021 8:12 AM I & O Totals 24 Hours 02/17/21 02/18/21 02/19/21 06:59 06:59 06:59 Intake Total 497.514 / 931.339 9122.610 / 1109.610 756.922 / 756.922 Output Total 50 / 50 50 / 50 0 / 0 Balance 447.514 / 944.058 4447.610 / 1059.610 756.922 / 756.922 Cumulative 02/13/21 16:11 thru 02/18/21 12:25 Intake Total 5888.066 Output Total 450 Balance 5438.066 RT Ventilator Mngmt (Last Documented) Ventilator Ordered Settings Ventilator Support Mode CPAP 02/18/21 12:10 Respiratory Rate [Recovery] 20 02/15/21 13:35 Respiratory Rate [Exercise] 20 02/15/21 13:35 Respiratory Rate [Resting] 16 02/15/21 13:35 Respiratory Rate 19 02/18/21 13:00 Ventilator Tidal Volume 400 02/18/21 10:45 Setting Minute Ventilation 9.7 02/18/21 12:10 Ventilator Positive Pressure 6 02/18/21 12:10 Support Setting Positive End Expiratory 5 02/18/21 12:10 Pressure Fraction of Inspired Oxygen 30 02/18/21 12:10 Machine Comment Rate change by Dr. Yanez 02/16/21 11:23 Ventilator - PT Measurements Respiratory Rate [Recovery] 20 Respiratory Rate [Exercise] 20 Respiratory Rate [Resting] 16 Respiratory Rate 19 Exhaled Tidal Volume 770 Minute Ventilation 9.7 Peak Inspiratory Airway 13 Pressure Plateau Pressure 16 Respiratory Cycle Inspiratory: 1:3.7 Expiratory Ratio Inspiratory Phase Time 0.8 End-Tidal CO2 34 Static Lung Compliance 35.91 Dynamic Lung Compliance 96.25 Normal Static Lung Compliance 49.00 Patient Measurements Comment Patient extubated per Elisabeth ROSE. PA and nurse at bedside. Patient placed on 40% aerosol. Weaned to 30%. SpO2 96%. Coding Level of Care Code Critical Care 1st 30-74 mins Diagnoses Admitted to intensive care unit Z78.9 Respiratory failure J96.90 Pneumonia due to 2019-nCoV U07.1; J12.82 COPD (chronic obstructive pulmonary disease) J44.9 COPD type: unspecified COPD Diastolic CHF I50.33 Heart failure chronicity: acute on chronic ESRD (end stage renal disease) N18.6 Time Spent (min) 40 (1) COPD (chronic obstructive pulmonary disease) COPD type: unspecified COPD Qualified Code(s): J44.9 - Chronic obstructive pulmonary disease, unspecified (2) Diastolic CHF Heart failure chronicity: acute on chronic Qualified Code(s): I50.33 - Acute on chronic diastolic (congestive) heart failure
[2021-02-18] MEDS: NOREPINEPHRINE/D5W 8 MG/508 ML BAG IV SCH (16:35)
[2021-02-18] MEDS: METOPROLOL TARTRATE 50 MG TAB PO SCH (17:29)
[2021-02-18] MEDS: CYCLOBENZAPRINE HCL 10 MG TAB PO SCH (21:13)
[2021-02-19] MEDS: METOPROLOL TARTRATE 50 MG TAB PO SCH ×2 (05:23→20:36)
[2021-02-19] MEDS: LEVOTHYROXINE SODIUM 125 MCG TABLET PO SCH (05:23)
[2021-02-19] MEDS: HEPARIN SOD 5,000 UNIT/0.5 ML VIAL SQ SCH ×3 (05:23→21:45)
[2021-02-19] MEDS ORDERED: SODIUM CHLORIDE 0.9% 1000ML 1,000 ML IV PRN (07:00)
[2021-02-19] MEDS ORDERED: hydrALAZINE HCL 20 MG/ML VIAL IV PRN (07:35)
--- NOTE | 2021-02-19 07:35 | Critical Care Progress Note ---
Date of Service February 19, 2021 Assessment & Plan (1) Admitted to intensive care unit: Plan: Impression: 70-year-old male with significant respiratory distress in the setting of volume overload, COPD, and COVID-19 pneumonia requiring emergent endotracheal intubation with ongoing management. Patient intubated 02/16/2021. Patient also requiring hemodialysis Wednesdays and Fridays. Imaging reviewed. Patient most likely has right upper lobe malignancy with spiculated mass. He was to have follow-up studies this week for diagnosis. Patient extubated 02/18/2021. 24-hour events: Patient extubated yesterday and is currently stable and maintaining oxygen saturations on 2 L nasal cannula. He is mildly encephalopathic. He has been hypertensive throughout the night and was restarted on metoprolol and Norvasc added. Plan for hemodialysis today. No acute events overnight and at this time patient is hemodynamically stable and okay for downgrade from ICU status. NEURO - * Encephalopathysuspect this is primarily from ICU delirium and could be possible side effect from sedation Patient is alert to self and knows that he is in the hospital but is confused on the year. Monitor for now. CARDIAC/VASCULAR - * Hypertension, hyperlipidemia, CHF: * Metoprolol restarted, Norvasc added as patient has been hypertensive throughout the night. IV hydralazine as needed for breakthrough hypertension * Nephrology managing volume status and patient to undergo hemodialysis today. * Continue to monitor on telemetry. RESPIRATORY - * Respiratory failure: * Endotracheal intubation 02/16/2021. Successfully extubated 02/18/2021. Currently maintaining oxygen saturation on 2 L nasal cannula * Chest x-ray from today reviewed. Left lower lobe collapse appears to show improvement following pulmonary toileting. Continue to monitor * CT chest from 02/15/2021 reviewed. Spiculated 2.3 cm nodule appreciated in the right upper lobe. Most likely malignant considering tobacco abuse history. Established with [facility] pulmonary and work-up in progress with. Needs PET scan and potential endobronchial sampling of lymph nodes for staging. Consider MRI of the brain with contrast to complete staging * Initiate incentive spirometry and flutter valve * Patient with history of COPD. Nebs as needed for wheezing. Continue Trelegy Ellipta GI/NUTRITION - * Speech consult pending for swallow study, n.p.o. for now and will advance diet following recommendations * Prophylaxis: Continue famotidine RENAL/LYTES - * End-stage renal disease on hemodialysis Wednesday/Wednesday/Wednesday: * Appreciate nephrology ongoing management. Scheduled HD dialysis for today. Continue fluid management with hemodialysis - * Patient has been anuric. Continue with hemodialysis for fluid management. ENDO - * DMII * BSGs per unit protocol. ISS --> gtt per unit policy. * Hold sevelamer and continue with subcutaneous insulin * Postoperative hypothyroidism. * Patient previously admitted 02/03/2021 and found to have elevated TSH and low T4. At that time epic chart was reviewed and levothyroxine was last adjusted in June 2020. Levothyroxine was increased to 137.5 mcg daily at that time. TSH is now 9.87 (down from 20.5). Continue levothyroxine at 125 mcg daily. Should have follow-up in 6 weeks HEME - * Stable H&H ID - * LE Cellulitis: * Rocephin started on 02/14/2021 * Fevers: * Will add blood, sputum, Urine (if able) cultures. * Doxycycline started 02/16/2021 when patient was intubated * Covid 19 pneumonia: * Unable to receive remdesivir 2/2 renal function. * Continue Dexamethasone 6mg daily (today is day 4 of 10) * Not a candidate for baricitinib or tocilizumab due to end-stage renal disease * No other interventions recommended at this time. Continue supportive care LINES/IV ACCESS - * PIVs DVT PROPHYLAXIS - * Heparin 5000 units subcu every 8 hours * SCDs Thank you for allowing us to participate in the care of this patient. Please refer to my attending physician's documentation for any further recommendations. (2) Respiratory failure: (3) Pneumonia due to 2019-nCoV: (4) COPD (chronic obstructive pulmonary disease): (5) Diastolic CHF: (6) ESRD (end stage renal disease): Admission and Anticipated Discharge Date Admission Date: February 13, 2021 Supervising Physician Co-Signing Physician Notes Patient seen and examined. EMR reviewed. Discussed with nurse at bedside and with patient as well as critical care TONY. Agree with assessment plan as noted. The patient is exhibiting paradoxical breathing this morning with some wheezing. Discussed with RT. Will provide DuoNeb now. His Trelegy is scheduled to be restarted and will give that early. Continue dexamethasone which should treat airway inflammation and bronchospasm. Antihypertensive regimen adjusted. Will defer additional changes to nephrology. Dialysis planned for today. The patient is already established for outpatient follow-up of his spiculated pulmonary nodule which likely represents an underlying malignancy. He should have PET scanning and sampling performed under the direction of his outpatient pulmonary group. MRI of the brain with contrast also recommended Will sign off at this point time. Feel free to contact us if we can be of additional assistance Review of Systems Review of Systems: Patient confused this morning but able to answer yes and no questions. He currently denies any pain, headache, dizziness, sore throat, shortness of breath, cough, chest pain, palpitations, abdominal pain, nausea or vomiting. Physical Exam Constitutional: + altered mental status, cooperative and comfortable; no acute distress Eyes: PERRL, conjunctivae normal, anicteric sclerae ENMT: external ear and nose normal, oropharynx normal Neck: trachea midline, no thyromegaly Respiratory: Symmetrical chest wall movement, lungs coarse/rhonchi bilaterally, expiratory wheezes in right and left upper lobes. No labored breathing or respiratory distress Cardiovascular: Rate/Rhythm: regular rate and regular rhythm Heart Sounds: normal S1 and normal S2 Vessels: no JVD Bilateral lower extremity edema +1 Gastrointestinal (Abdomen): normal bowel sounds, soft, nontender, no hepatosplenomegaly Musculoskeletal: no cyanosis or clubbing, extremities motor strength 5/5 Skin: no rashes, warm and dry Neurologic: PERRL, EOMI, accommodation nl, no face palsy, no dysarthria Psychiatric: Oriented to self and place. Disoriented to time. Euthymic affect Results & Data Results & Data ([facility]) Vital Signs (Past 12 Hours) Vital Signs Temp Pulse Resp BP Pulse Ox 02/19/21 07:17 36.1 C L 83 22 194/99 H 96 Coding Level of Care Code 80026 Subseq Hosp Care Lvl 3 Diagnoses Admitted to intensive care unit Z78.9 Respiratory failure J96.90 Pneumonia due to 2019-nCoV U07.1; J12.82 COPD (chronic obstructive pulmonary disease) J44.9 COPD type: unspecified COPD Diastolic CHF I50.33 Heart failure chronicity: acute on chronic ESRD (end stage renal disease) N18.6 (1) Diastolic CHF Heart failure chronicity: acute on chronic Qualified Code(s): I50.33 - Acute on chronic diastolic (congestive) heart failure (2) COPD (chronic obstructive pulmonary disease) COPD type: unspecified COPD Qualified Code(s): J44.9 - Chronic obstructive pulmonary disease, unspecified
[2021-02-19] MEDS: LEVALBUTEROL HCL 1.25 MG/3 ML NEB NEB PRN ×3 (07:45→15:29)
--- NOTE | 2021-02-19 07:45 | XRay Report ---
XR chest 1V portable CLINICAL HISTORY: LLL collapse, COVID PNA COMPARISON STUDY: Chest radiograph February 18, 2021. FINDINGS: Endotracheal and nasogastric tubes have been removed. There is no pneumothorax. Left lower lobe airspace opacity is noted however aeration has improved since prior examination. Interstitial th ickening persists. Suspected small left pleural effusion is present. Cardiomegaly is unchanged. IMPRESSION: 1. Interval improvement in left lower lobe aeration. This may reflect improving left lower lobe atele ctasis. 2. Persistent interstitial thickening and bilateral opacities which may reflect pulmonary edema or an infectious process. 3. Suspected small left pleural effusion. ACT 112: Negative or not required by law. Electronically signed by: Jose Hastings M.D. 02/19/2021 7:44 AM
[2021-02-19] MEDS: INSULIN ASPART PER UNIT SC SCH ×4 (08:00→21:33)
[2021-02-19] MEDS ORDERED: ALBUT/IPRATROP 3MG/0.5MG NEB 3 ML VIAL ONE (08:20)
[2021-02-19] MEDS: DOXYCYCLINE HYCLATE 100 MG in DEXTROSE 5% 100 ML IV SCH ×2 (08:21→20:31)
[2021-02-19] MEDS: hydrOXYzine HCl 25 MG TAB PO PRN (08:22)
[2021-02-19] MEDS: FAMOTIDINE 20 MG in SYRINGE 3 ML IV SCH (08:22)
[2021-02-19] MEDS: SEVELAMER HCL 800 MG TABLET PO SCH ×3 (08:22→17:33)
[2021-02-19] MEDS: rOPINIRole HCL 1 MG TABLET PO SCH (08:22)
[2021-02-19] MEDS: amLODIPine BESYLATE 5 MG TAB PO SCH (08:23)
[2021-02-19] MEDS: dexAMETHasone 6 MG in SYRINGE 0 ML IV SCH (08:23)
[2021-02-19] MEDS: UMECLIDINIUM/VILANTEROL 62.5/25MCG 7 PUFFS/INHALER INH SCH (08:23)
[2021-02-19] MEDS ORDERED: ALBUT/IPRATROP 3MG/0.5MG NEB 3 ML VIAL NEB STA (08:26)
[2021-02-19 08:30] LABS: BUN Creatinine Ratio 12.5 (10-20); Calcium 7.7 mg/dl (8.5-10.1); Creatinine Clr Calc Pharmacy 10.4 ml/min; Est GFR (African American) 8.8 ml/min; Est GFR (Non-African American) 7.6 ml/min; Magnesium 2.5 mg/dl (1.7-2.4); Phosphorus 9.6 mg/dl (2.5-4.9); Potassium 6.4 mmol/L (3.5-5.1)
--- NOTE | 2021-02-19 09:47 | Nephrology Progress Note ---
Date of Service February 19, 2021 Assessment & Plan Admission and Anticipated Discharge Date Admission Date: February 13, 2021 Subjective Assessment & Plan (1) ESRD (end stage renal disease) on dialysis: Plan: ESRD on Wednesday hemodialysis via AV fistula with chronic volume overload issues and now intermittent hyperkalemia as well as C-19 pneumonia. Do dialysis today 3.5 hrs 2k bath and take 3-4 kilo off. Plan to run tomorrow -Holding RONI given lung nodule Daily basic metabolic panel At hospital d/c will need to dialyze at [facility] d/t covid hx/status; duration of needing to do this is either 21 days from onset of sx or after 2 negative tests which would be done at dialysis, whichever sooner Unfortunately no transportation available to [place] > pt would have to arrange (2) Pneumonia due to Covid : Plan: per primary service and critical care. Complicated by COPD exacerbation/volume overload, with these latter problems per pulmonary more likely primary in his respiratory distress. He is for outpatient lung nodule biopsy, now deferred due to his Covid status--Likely Cancer. Got extubated yesterday. o2 is fine but he is clearly Short of breath and abnormal breathing. (3) Fluid overload: Plan: Aggressive UF with dialysis as above; when taking p.o. again recommend 1.2 L fluid limit. Plan for 3.5 kilo in 3.5 hrs. Subjective Got extubated but is too weak. SOB and Cannot even speak anything. Review of Systems Review of Systems: Unobtainable due to endotracheal tube Physical Exam Constitutional: well developed, well nourished and + mechanically ventilated; no acute distress Eyes: EOM intact bilaterally ENMT: Ears: no external ear abnormality Nose: no external nose abnormality Mouth: + dry oral mucous membranes Neck: no nuchal rigidity Respiratory: normal respiratory effort Auscultation: + diminished lung s ounds Cardiovascular: Rate/Rhythm: regular rate and regular rhythm Extremities: + edema (2+ pedal) and + AV fistula (+t/b) Gastrointestinal (Abdomen): Inspection/Auscultation: normal bowel sounds Percussion/Palpation: abdomen soft; abdomen nontender Musculoskeletal: Extremities: strength 5/5 throughout Skin: no rashes, warm and dry Psychiatric: Orientation: alert and oriented x 3 Affect: + anxious affect Results & Data ([place]) Vital Signs (Past 12 Hours) Vital Signs Temp Pulse Pulse Resp BP Pulse Ox 02/19/21 08:33 82 20 96 02/19/21 07:45 85 20 94 02/19/21 07:17 36.1 C L 83 22 194/99 H 96
--- NOTE | 2021-02-19 12:17 | Pharmacy Report ---
Pharmacy Glycemic Short Note 2 - Date of Service February 19, 2021 - Glycemic Short BSG Results (Last 24 hours): 02/18/21 02/18/21 02/19/21 16:31 21:08 06:44 Glucose 160 H POC Glucose 155 H 157 H 02/19/21 02/19/21 02/19/21 07:21 11:18 11:33 Glucose POC Glucose 152 H 140 H 130 H OUTPATIENT ANTIDIABETIC REGIMEN: * n/a ASSESSMENT: 02/19 * Patient overall well controlled for the past 72 hours. Will monitor fasting BSGs, if trending up consider adding basal insulin back. * Patient remains NPO, however is allowed applesauce with medications which is being covered with novolog. * Patient continues on IV dexamethasone 02/16: * Patient received total 33 units of insulin yesterday; 20 units basal + 13 units bolus. * BSG trended down to 56 mg/dl around midnight yesterday, most likely d/t late hemo-dialysis session. * Fasting BSG today = 93 mg/dl. Since patient was hypoglycemic last night and fasting lower today, basal insulin was discontinued this AM. * BSG trended up to 142 mg/dl before lunch today. No changes made to Novolog parameters. 02/14/21: * Mr Gustafson is a 70 y/o M with a PMH of ESRD on HD who presents with COVID- 19. He was started on dexamethasone 6 mg IV daily yesterday. * Patient's BSG on admission was 161 mg/dL (prior to dexamethasone) then 275 mg/dL at night. * Morning fasting was 297 mg/dL on PRP and 245 mg/dL on POC. * Patient with hyperkalemia so given 10 units IV insulin with 1/2 amp of D50. * Start NPH 25 units (0.3 units/kg). Novolog weight-based stress of 2 for now as patient is insulin sensitive. PLAN FOR INPATIENT GLYCEMIC CONTROL: * Basal insulin * None for today * Bolus insulin * NovoLog per scale ACHS or Q6hrs while NPO * Goal Range: Low 110 mg/dL - High 140 mg/dL * Correction Factor: 25 mg/dL/unit * Nutritional / Prandial insulin per carb ratio of 1 unit per 8 grams CHO consumed PLAN FOR DISCHARGE: * HbA1C is not accurate in an individual with ESRD on HD. * Recommend monitoring blood sugars as an outpatient and following up with provider to make adjustments to medication regimen as appropriate.
--- NOTE | 2021-02-19 14:23 | Hospitalist Progress Note ---
Date of Service February 19, 2021 Assessment & Plan (1) ESRD (end stage renal disease) on dialysis: (2) Respiratory failure: (3) Pneumonia due to 2019-nCoV: Plan: 70-year-old male with PMH of T2DM, ESRD on HD, SLE, Graves' disease, hyperthyroidism followed by postoperative hypothyroidism, COPD, HTN, mild AAS, A. fib, renal osteodystrophy, generalized OA, gouty arthropathy, chronic tobacco use who was recently admitted in the hospital for right leg cellulitis and fluid overload presented 02/13/2021 for shortness of breath which is getting worse 1 day [employer] associated with mild cough. He has been managed for the following: #. COVID 19 Pneumonia #. Acute respiratory failure with hypoxia #. Likely superimposed bacterial infection Shortness of breath, cough and subjective fever at presentation, needed NC O2 in ER, Tested positive for COVID 02/13/21 in ED. Admitting CXR: Moderate pulmonary edema, bilateral lower lung predominant opacities suggestive of pneumonia versus atelectasis versus alveolar edema. 02/19/2021 CXR [after extubation]: Persistent interstitial thickening and bilateral opacities suggestive of infectious process versus pulmonary edema June 2019 echo: EF 55 to 60%, left ventricular systolic function normal. Patient febrile 02/16 - 02/17---> 02/16 sputum culture negative for growth, 02/16 blood culture negative for growth for 48 hours. Procalcitonin uptrending and elevated at 8.13 on 02/19. COVID-positive, s/p intubation 02/16/2021 for respiratory distress, extubated 02/18/2021 c/w dexa 02/14, unable to receive remdesivir secondary to renal function. Not a candidate for baricitinib or tocilizumab due to ESRD. Continue with Rocephin 02/14 and doxycycline 02/16 Continue with GI prophylaxis famotidine for the duration of steroid. Supplemental oxygen, titrate as tolerated, incentive Cymetra/flutter valve, proning as able. #. Hypertension, HLD, CHF Patient's blood pressure running high while inpatient, likely secondary to acute distress of COVID/intubation. Continue with home medication metoprolol, Norvasc added, continue with Norvasc. Utilize IV hydralazine as needed. Getting hemodialysis today, expect to improve blood pressure, continue to monitor. #. ESRD on HD #. Electrolytes abnormality: Hyperkalemia/hyperphosphatemia Patient getting hemodialysis, nephrology on board, appreciate recommendation. #. Postoperative hypothyroidism: Elevated TSH and low T4 on admission labs - Per prior attending: [facility] chart reviewed and it appears levothyroxine last adjusted before June 2020. Increase levothyroxine to 137.5 mcg daily Repeat TSH as outpatient in 6 weeks #. Pulmonary nodule: 02/15/2021 CT chest: A spiculated 2.3 cm nodule in the right upper lobe, most likely malignant considering tobacco abuse history. Patient established with [facility] pulmonology and work-up in progress. Needs PET scan/potential endobronchial sampling of lymph nodes for staging. Patient needs outpatient pulm follow-up. Patient failed swallow evaluation,Speech to reevaluate him tomorrow, n.p.o. Full code Heparin subcu Downgrade to PCU/telemetry. Admission and Anticipated Discharge Date Admission Date: February 13, 2021 Subjective Patient was lying in bed, on 2 L of nasal cannula oxygen, oriented to place, drowsy, NAD, unable to cooperate. Per RN, he failed swallow eval, speech will reevaluate him tomorrow. Per RN no acute issues overnight. Patient is still confused per RN. Patient was getting hemodialysis at bedside exam. ROS N/A due to cognition status. Physical Exam Physical Exam: GENERAL: Drowsy, ton 2L NC O2, oriented to place only, unable to cooperate HEENT: No pallor, no icterus. Pupils equal, round and reactive to light. Oral mucosa moist. NECK: No JVD, no neck masses. HEART: S1 and S2 heard. Regular rate and rhythm. No murmur, no gallop. RESPIRATORY SYSTEM: Normal AP diameter. No accessory muscle use. No wheezing, b/b crackles. ABDOMEN: Soft, bowel sounds present, nontender, no distention. Ticklish on exam . CENTRAL NERVOUS SYSTEM: No facial droop. Speech is clear. Obeys simple commands. Moves extremities. EXTREMITIES: No edema, chronic skin changes noted, no erythema seen. Results & Data Results & Data ([facility]) Vital Signs (Past 12 Hours) Vital Signs Temp Pulse Pulse Pulse Resp BP BP 02/19/21 13:45 94 H 121/75 02/19/21 13:30 93 H 161/79 H 02/19/21 13:00 88 148/77 H 02/19/21 12:45 95 H 169/87 H 02/19/21 12:30 86 163/79 H 02/19/21 12:15 86 154/82 H 02/19/21 12:00 36.1 C L 87 96 H 26 H 169/89 H 02/19/21 11:45 84 158/83 H 02/19/21 11:30 84 182/96 H 02/19/21 11:15 85 195/93 H 02/19/21 11:07 84 20 02/19/21 11:00 85 181/96 H 02/19/21 10:45 81 175/97 H 02/19/21 10:30 83 183/90 H 02/19/21 10:18 36.7 C 79 02/19/21 09:49 193/87 H 02/19/21 08:33 82 20 02/19/21 08:00 80 02/19/21 07:45 85 20 02/19/21 07:17 36.1 C L 83 22 194/99 H Pulse Ox 02/19/21 13:45 02/19/21 13:30 02/19/21 13:00 02/19/21 12:45 02/19/21 12:30 02/19/21 12:15 02/19/21 12:00 96 02/19/21 11:45 02/19/21 11:30 02/19/21 11:15 02/19/21 11:07 96 02/19/21 11:00 02/19/21 10:45 02/19/21 10:30 02/19/21 10:18 02/19/21 09:49 02/19/21 08:33 96 02/19/21 08:00 02/19/21 07:45 94 02/19/21 07:17 96
[2021-02-19] MEDS: CYCLOBENZAPRINE HCL 10 MG TAB PO SCH (20:36)
[2021-02-19] MEDS: cefTRIAXone SODIUM 2,000 MG in DEXTROSE 5% 50 ML IV SCH (23:23)
[2021-02-19] MEDS ORDERED: ACETAMINOPHEN 1,000 MG/100 ML VIAL IV STA (23:59)
[2021-02-20] MEDS: ACETAMINOPHEN 325 MG TAB PO PRN ×2 (03:08→21:26)
[2021-02-20] MEDS: LEVOTHYROXINE SODIUM 125 MCG TABLET PO SCH (05:52)
[2021-02-20] MEDS: HEPARIN SOD 5,000 UNIT/0.5 ML VIAL SQ SCH ×3 (05:53→21:14)
[2021-02-20 06:42] LABS: Hematocrit (blood only) 33.7 % (42-52); Hemoglobin 10.9 g/dL (14.0-18.0); Mean Corpuscular Hemoglobin 29.1 pg (25-34); Mean Corpuscular Hgb Conc 32.3 g/dL (32-36); Mean Corpuscular Volume 89.9 fL (80-100); Mean Platelet Volume 10.8 fL (7.4-10.4); Platelet Count 259 K/uL (130-400); RDW Coefficient of Variation 17.7 % (11.5-14.5); RDW Standard Deviation 56.2 fL (36.4-46.3); Red Blood Count 3.75 M/uL (4.7-6.1); White Blood Count 10.26 K/uL (4.8-10.8)
--- NOTE | 2021-02-20 07:00 | Ultrasound Report ---
BILATERAL LOWER EXTREMITY VENOUS DOPPLER CLINICAL HISTORY: severe leg pain COMPARISON STUDY: Bilateral lower extremity venous Doppler ultrasound February 01, 2021. TECHNIQUE: Sonography of the deep venous system of the bilateral lower extremities was performed. Co mpression and augmentation were evaluated. FINDINGS: The bilateral common femoral, superficial femoral and popliteal veins were compressible. A ugmentation was normal. Flow was shown within the deep calf vessels. IMPRESSION: No evidence of deep venous thrombus within the bilateral lower extremities. ACT 112: Negative or not required by law. Electronically signed by: Jose Hastings M.D. 02/20/2021 6:59 AM
[2021-02-20 07:20] LABS: Calcium 7.8 mg/dl (8.5-10.1); Creatinine Clr Calc Pharmacy 12.1 ml/min; Est GFR (African American) 10.6 ml/min; Est GFR (Non-African American) 9.1 ml/min; Potassium 5.2 mmol/L (3.5-5.1)
[2021-02-20] MEDS: DOXYCYCLINE HYCLATE 100 MG in DEXTROSE 5% 100 ML IV SCH ×2 (09:23→21:01)
[2021-02-20] MEDS: INSULIN ASPART PER UNIT SC SCH ×4 (09:24→21:09)
[2021-02-20] MEDS: FAMOTIDINE 20 MG in SYRINGE 3 ML IV SCH (09:24)
[2021-02-20] MEDS: SEVELAMER HCL 800 MG TABLET PO SCH ×3 (09:25→17:12)
[2021-02-20] MEDS: METOPROLOL TARTRATE 50 MG TAB PO SCH ×2 (09:25→21:14)
[2021-02-20] MEDS: hydrOXYzine HCl 25 MG TAB PO PRN ×2 (09:25→19:55)
[2021-02-20] MEDS: rOPINIRole HCL 1 MG TABLET PO SCH (09:26)
[2021-02-20] MEDS: UMECLIDINIUM/VILANTEROL 62.5/25MCG 7 PUFFS/INHALER INH SCH (09:26)
[2021-02-20] MEDS: amLODIPine BESYLATE 5 MG TAB PO SCH (09:27)
[2021-02-20] MEDS: dexAMETHasone 6 MG in SYRINGE 0 ML IV SCH (09:37)
[2021-02-20] MEDS ORDERED: SODIUM CHLORIDE 0.9% 1000ML 1,000 ML IV PRN (10:16)
--- NOTE | 2021-02-20 10:16 | Nephrology Progress Note ---
Date of Service February 20, 2021 Assessment & Plan Admission and Anticipated Discharge Date Admission Date: February 13, 2021 Subjective Assessment & Plan (1) ESRD (end stage renal disease) on dialysis: Plan: ESRD on Wednesday hemodialysis via AV fistula with chronic volume overload issues and now intermittent hyperkalemia as well as C-19 pneumonia. W ill do extra dialysis today 3 hrs 2k bath and take 3 kilo off.Hoping this may help his SOB. Also BP should come down with Dialysis -Holding RONI given lung nodule Daily basic metabolic panel At hospital d/c will need to dialyze at [facility] d/t covid hx/status; duration of needing to do this is either 21 days from onset of sx or after 2 negative tests which would be done at dialysis, whichever sooner Unfortunately no transportation available to [place] > pt would have to arrange (2) Pneumonia due to Covid : Plan: per primary service and critical care. Complicated by COPD exacerbation/volume overload, with these latter problems per pulmonary more likely primary in his respiratory distress. He is for outpatient lung nodule biopsy, now deferred due to his Covid status--Likely Cancer. Got extubated but has SOB (3) Fluid overload: Plan: Aggressive UF with dialysis as above; when taking p.o. again recommend 1.2 L fluid limit. Plan for 3.5 kilo in 3.5 hrs. Subjective Got extubated but is too weak. SOB but better than yesterday. Could do some talking today Review of Systems Review of Systems: Unobtainable due to endotracheal tube Physical Exam Constitutional: well developed, well nourished and Eyes: EOM intact bilaterally ENMT: Ears: no external ear abnormality Nose: no external nose abnormality Mouth: + dry oral mucous membranes Neck: no nuchal rigidity Respiratory: normal respiratory effort Auscultation: + diminished lung sounds Cardiovascular: Rate/Rhythm: regular rate and regular rhythm Extremities: + edema (2+ pedal) and + AV fistula (+t/b) Gastrointestinal (Abdomen): Inspection/Auscultation: normal bowel sounds Percussion/Palpation: abdomen soft; abdomen nontender Musculoskeletal: Extremities: strength 5/5 throughout Skin: no rashes, warm and dry Psychiatric: Orientation: alert but weak and confused Results & Data ([facility]) Vital Signs (Past 12 Hours) Vital Signs Temp Pulse Pulse Pulse Resp BP Pulse Ox 02/20/21 07:39 36.8 C 92 H 20 179/90 H 94 02/20/21 04:13 73 02/20/21 03:01 36 C L 85 24 163/73 H 96 02/19/21 23:25 36.5 C 89 24 152/77 H 97
[2021-02-20] MEDS ORDERED: EPOETIN ALFA 4,000 UNIT/ML VIAL IV SCH (11:00)
[2021-02-20] MEDS ORDERED: INSULIN GLARGINE SOLOSTAR 100 UNITS/ML 3 ML PEN SC ONE (11:30)
--- NOTE | 2021-02-20 12:17 | Hospitalist Progress Note ---
Date of Service February 20, 2021 Assessment & Plan (1) ESRD (end stage renal disease) on dialysis: (2) Respiratory failure: (3) Pneumonia due to 2019-nCoV: Plan: 70-year-old male with PMH of T2DM, ESRD on HD, SLE, Graves' disease, hyperthyroidism followed by postoperative hypothyroidism, COPD, HTN, mild AAS, A. 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 He has been managed for the following: #. COVID 19 Pneumonia #. Acute respiratory failure with hypoxia #. Likely superimposed bacterial infection Shortness of breath, cough and subjective fever at presentation, needed NC O2 in ER, Tested positive for COVID02/13/21 in ED. Admitting CXR: Moderate pulmonary edema, bilateral lower lung predominant opacities suggestive of pneumonia versus atelectasis versus alveolar edema. 02/19/2021 CXR [after extubation]: Persistent interstitial thickening and bilateral opacities suggestive of infectious process versus pulmonary edema June 2019 echo: EF 55 to 60%, left ventricular systolic function normal. Patient febrile 02/16 - 02/17---> 02/16 sputum culture negative for growth, 02/16 blood culture negative for growth for 48 hours/so far Procalcitonin uptrending and elevated at 8.13 on 02/19. COVID-positive, s/p intubation 02/16/2021 for respiratory distress, extubated 02/18/2021 c/w dexa 02/14, unable to receive remdesivir secondary to renal function. Not a candidate for baricitinib or tocilizumab due to ESRD. Continue with Rocephin 02/14 and doxycycline 02/16 Continue with GI prophylaxis famotidine for the duration of steroid. Supplemental oxygen, titrate as tolerated, on RA at bedside exam, incentive spirometry/flutter valve, proning as able. Patient will repeat repeat chest x-ray in 6-week upon discharge to document the resolution of pneumonia. #. Hypertension, HLD, CHF Patient's blood pressure running high while inpatient, likely secondary to acute distress of COVID/intubation. Continue with home medication metoprolol, Norvasc added, continue with Norvasc. Utilize IV hydralazine as needed. Getting hemodialysis again today, expect to improve blood pressure, continue to monitor. #. ESRD on HD #. Electrolytes abnormality: Hyperkalemia/hyperphosphatemia Patient getting hemodialysis again today, nephrology on board, appreciate recommendation. Nephrology holding RONI given lung nodule. Continue to monitor lytes/BMP. Nephrology recommends 1.2 L fluid limit. Upon discharge, patient will need to dialyze at [facility] due to COVID status and patient will likely have to arrange transportation, patient's made aware #. Postoperative hypothyroidism: Elevated TSH and low T4 on admission labs - Per prior attending: Epic chart reviewed and it appears levothyroxine last adjusted before June 2020. Increased levothyroxine to 137.5 mcg daily Repeat TSH as outpatient in 6 weeks #. Pulmonary nodule: 02/15/2021 CT chest: A spiculated 2.3 cm nodule in the right upper lobe, most likely malignant considering tobacco abuse history. Patient established with [facility] pulmonology and work-up in progress. Needs PET scan/potential endobronchial sampling of lymph nodes for staging. Patientneeds outpatient pulm follow-up. They have not been able to follow-up per his . Made aware the importance of pulm follow-up. Patient on minced and moist diet per speech. Full code Heparin subcu Downgrade to med/telemetry. Admission and Anticipated Discharge Date Admission Date: February 13, 2021 Subjective Patient was lying in bed, on room air, NAD, no new acute events overnight per patient. Patient is AOx3 at bedside exam. Patient denies any fever/headache/chills/chest pain/palpitations/belly pain/other review of symptoms. Patient is weak and will need to cooperate more with PT/OT. Pt made aware. Pt was reiterating "I want to go home" multiple times during the bedside exam. I gave a call to patient's Joan and updated her about his current status and possibly need for placement upon discharge, she voiced understanding and was agreeable to the plan of care. Physical Exam Physical Exam: GENERAL: Drowsy, Ox3, angry/irritated, reiterating "I want to go home". HEENT: No pallor, no icterus. Pupils equal, round and reactive to light. Oral mucosa moist. NECK: No JVD, no neck masses. HEART: S1 and S2 heard. Regular rate and rhythm. No murmur, no gallop. RESPIRATORY SYSTEM: Normal AP diameter. No accessory muscle use. No wheezing, b/b crackles. ABDOMEN: Soft, bowel sounds present, nontender, no distention. Ticklish on exam . CENTRAL NERVOUS SYSTEM: No facial droop. Speech is clear. Obeys simple commands. Moves extremities. EXTREMITIES: No edema, chronic skin changes noted, no erythema seen. Results & Data Results & Data ([facility]) Vital Signs (Past 12 Hours) Vital Signs Temp Pulse Pulse Pulse Resp BP Pulse Ox 02/20/21 07:39 36.8 C 92 H 20 179/90 H 94 02/20/21 04:13 73 02/20/21 03:01 36 C L 85 24 163/73 H 96
[2021-02-20] MEDS ORDERED: methylPREDNISolone 40 MG in SYRINGE 0 ML IV STA (20:19)
--- NOTE | 2021-02-20 21:00 | XRay Report ---
SINGLE VIEW CHEST CLINICAL HISTORY: Hypoxia. Covid pneumonia FINDINGS: An AP, portable, semierect chest radiograph is compared to study dated 02/19/2021. Correlati on is made with chest CT dated 02/15/2021. The examination is degraded by portable technique and patien t apical lordotic positioning. The heart is enlarged noting atherosclerotic calcification of the thor acic aorta. Multifocal airspace consolidation is similar to yesterday. There is improved aeration at the left lung. No large pleural effusion or pneumothorax is seen. The skeletal structures are osteope taina. The bony thorax is grossly intact. IMPRESSION: Multifocal airspace consolidation is consistent with reported history of viral pneumonia and similar to yesterday. Improved aeration is again seen at the left lung base. ACT 112: Negative or not required by law. Electronically signed by: Dheeraj Monte M.D. 02/20/2021 8:59 PM
[2021-02-20 21:39] LABS: Base Excess ABG -0.4 mEq/L (-9-1.8); HCO3 ABG 22 mmol/L (19-24); PCO2 ABG 31 mmHg (35-46); PO2 ABG 192 mmHg (80-95); pH ABG 7.48 (7.35-7.45)
[2021-02-20 21:48] LABS: Allen Test POS (Pos)
[2021-02-20] MEDS ORDERED: OLANZapine 10 MG/2.1 ML SDV IM STA (22:15)
[2021-02-21] MEDS: cefTRIAXone SODIUM 2,000 MG in DEXTROSE 5% 50 ML IV SCH (00:21)
[2021-02-21] MEDS: CYCLOBENZAPRINE HCL 10 MG TAB PO SCH ×3 (00:55→21:05)
[2021-02-21] MEDS: HEPARIN SOD 5,000 UNIT/0.5 ML VIAL SQ SCH ×3 (05:54→21:09)
[2021-02-21] MEDS: LEVOTHYROXINE SODIUM 125 MCG TABLET PO SCH (05:54)
[2021-02-21 06:27] LABS: BUN Creatinine Ratio 9.8 (10-20); Calcium 8.4 mg/dl (8.5-10.1); Est GFR (African American) 11.6 ml/min; Phosphorus 8.4 mg/dl (2.5-4.9); Potassium 5.2 mmol/L (3.5-5.1)
[2021-02-21] MEDS: SEVELAMER HCL 800 MG TABLET PO SCH ×3 (08:09→17:27)
[2021-02-21] MEDS: INSULIN ASPART PER UNIT SC SCH ×4 (08:23→22:14)
[2021-02-21] MEDS: INSULIN GLARGINE SOLOSTAR 100 UNITS/ML 3 ML PEN SC SCH (08:25)
[2021-02-21] MEDS: dexAMETHasone 6 MG in SYRINGE 0 ML IV SCH (08:28)
[2021-02-21] MEDS: FAMOTIDINE 20 MG in SYRINGE 3 ML IV SCH (08:30)
[2021-02-21] MEDS: rOPINIRole HCL 1 MG TABLET PO SCH (08:31)
[2021-02-21] MEDS: DOXYCYCLINE HYCLATE 100 MG in DEXTROSE 5% 100 ML IV SCH ×2 (08:31→22:17)
[2021-02-21] MEDS: METOPROLOL TARTRATE 50 MG TAB PO SCH ×2 (08:32→21:08)
[2021-02-21] MEDS: UMECLIDINIUM/VILANTEROL 62.5/25MCG 7 PUFFS/INHALER INH SCH (08:35)
[2021-02-21] MEDS: amLODIPine BESYLATE 5 MG TAB PO SCH (08:35)
[2021-02-21] MEDS ORDERED: SODIUM CHLORIDE 0.9% 1000ML 1,000 ML IV PRN (09:48)
[2021-02-21] MEDS ORDERED: HEPARIN SOD (PORCINE) 1000 UNIT/ML IV ONE (10:00)
--- NOTE | 2021-02-21 10:52 | Nephrology Progress Note ---
Date of Service February 21, 2021 Assessment & Plan (1) ESRD (end stage renal disease) on dialysis: Plan: ESRD on Wednesday hemodialysis via AV fistula with chronic volume overload issues and now intermittent hyperkalemia as well as C-19 pneumonia. He had 3 L removed at dialysis on 02/20/2021. -Holding RONI given lung nodule Daily basic metabolic panel -HD today for 3-1/2 hours -3 L. (2) Pneumonia due to 2019-nCoV: Plan: Complicated by COPD exacerbation/volume overload, with these latter problems per pulmonary more likely primary in his respiratory distress. He is for outpatient lung nodule biopsy, now deferred due to his Covid status -We will attempt aggressive fluid removal with dialysis (3) Fluid overload: Plan: Aggressive UF with dialysis as above; when taking p.o. again recommend 1.2 L fluid limit Admission and Anticipated Discharge Date Admission Date: February 13, 2021 Subjective Seen in follow-up for ESRD. Patient is on BiPAP started last night after episodes of desaturation. He is requesting removal of BiPAP. Patient was dialyzed yesterday for 3 hours with net UF of 3 L. Potassium is essentially unchanged. No leg swelling. Review of Systems Review of Systems: All other systems were reviewed and negative except as noted in HPI Physical Exam Physical Exam: General exam: Appears comfortable, no acute distress, on BIPAP HEENT: Pupils are equal and reactive to light Neck: No JVD, neck is supple trachea is midline Respiratory system: Clear breath sounds bilaterally. Gastrointestinal: Abdomen is soft, non distended, non tender, bowel sounds are present CVS: Regular rate and rhythm. No murmurs, rubs or gallops Musculoskeletal: No joint or muscle tenderness Extremities: Non tender, no edema, peripheral pulses are present Neuro: Oriented, no tremors, no focal neurological deficits Skin: No rashes Results & Data ([facility]) Vital Signs (Past 12 Hours) Vital Signs Temp Pulse Pulse Resp BP Pulse Ox 02/21/21 08:33 99 02/21/21 07:51 36.8 C 83 18 141/86 H 100 02/21/21 07:35 84 02/21/21 03:49 36.6 C 83 20 133/75 100 02/20/21 23:00 38.6 C H 98 H 20 123/77 100 Laboratory Results 02/21/21 05:24 02/21/21 05:24 Phosphorus 8.4 H
[2021-02-21] MEDS: HEPARIN SOD (PORCINE) 1000 UNIT/ML IV SCH ×2 (11:26→15:14)
--- NOTE | 2021-02-21 14:13 | Pharmacy Report ---
Pharmacy Glycemic Short Note 2 - Date of Service February 21, 2021 - Glycemic Short BSG Results (Last 24 hours): 02/20/21 02/20/21 02/21/21 16:41 20:34 05:24 Glucose 196 H POC Glucose 93 113 H 02/21/21 07:53 Glucose POC Glucose 229 H OUTPATIENT ANTIDIABETIC REGIMEN: * n/a ASSESSMENT: 02/21: * Patient well controlled over the previous 24 hours, however,fasting BSG trending upward, received 10 units of lantus yesterday, Fasting continues to increase today, gave 15 units of lantus this morning and will set scale for PM. Patient is having dialysis today * Will continue current novolog parameters 02/19 * Patient overall well controlled for the past 72 hours. Will monitor fasting BSGs, if trending up consider adding basal insulin back. * Patient remains NPO, however is allowed applesauce with medications which is being covered with novolog. * Patient continues on IV dexamethasone 02/16: * Patient received total 33 units of insulin yesterday; 20 units basal + 13 units bolus. * BSG trended down to 56 mg/dl around midnight yesterday, most likely d/t late hemo-dialysis session. * Fasting BSG today = 93 mg/dl. Since patient was hypoglycemic last night and fasting lower today, basal insulin was discontinued this AM. * BSG trended up to 142 mg/dl before lunch today. No changes made to Novolog parameters. 02/14/21: * Mr Gustafson is a 70 y/o M with a PMH of ESRD on HD who presents with COVID- 19. He was started on dexamethasone 6 mg IV daily yesterday. * Patient's BSG on admission was 161 mg/dL (prior to dexamethasone) then 275 mg/dL at night. * Morning fasting was 297 mg/dL on PRP and 245 mg/dL on POC. * Patient with hyperkalemia so given 10 units IV insulin with 1/2 amp of D50. * Start NPH 25 units (0.3 units/kg). Novolog weight-based stress of 2 for now as patient is insulin sensitive. PLAN FOR INPATIENT GLYCEMIC CONTROL: * Basal insulin * Lantus 15 units this AM, scale for PM up to 15 units * Bolus insulin * NovoLog per scale ACHS or Q6hrs while NPO * Goal Range: Low 110 mg/dL - High 140 mg/dL * Correction Factor: 25 mg/dL/unit * Nutritional / Prandial insulin per carb ratio of 1 unit per 8 grams CHO consumed PLAN FOR DISCHARGE: * HbA1C is not accurate in an individual with ESRD on HD. * Recommend monitoring blood sugars as an outpatient and following up with provider to make adjustments to medication regimen as appropriate.
--- NOTE | 2021-02-21 15:28 | Hospitalist Progress Note ---
Date of Service February 21, 2021 Assessment & Plan (1) ESRD (end stage renal disease) on dialysis: (2) Respiratory failure: (3) Pneumonia due to 2019-nCoV: Plan: 70-year-old male with PMH of T2DM, ESRD on HD, SLE, Graves' disease, hyperthyroidism followed by postoperative hypothyroidism, COPD, HTN, mild AAS, A. 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 He is being managed for the following: #. COVID 19 Pneumonia #. Acute respiratory failure with hypoxia #. Likely superimposed bacterial infection Shortness of breath, cough and subjective fever at presentation, needed NC O2 in ER, Tested positive for COVID02/13/21 in ED. Admitting CXR: Moderate pulmonary edema, bilateral lower lung predominant opacities suggestive of pneumonia versus atelectasis versus alveolar edema. 02/19/2021 CXR [after extubation]: Persistent interstitial thickening and bilateral opacities suggestive of infectious process versus pulmonary edema June 2019 echo: EF 55 to 60%, left ventricular systolic function normal. Patient febrile 02/16 - 02/17---> 02/16 sputum culture negative for growth, 02/16 blood culture negative for growth. Procalcitonin uptrending and elevated at 8.13 on 02/19. COVID-positive, s/p intubation 02/16/2021 for respiratory distress, extubated 02/18/2021 c/w dexa 02/14, unable to receive remdesivir secondary to renal function. Not a candidate for baricitinib or tocilizumab due to ESRD. s/p Rocephin 02/14 - 02/21 and c/w doxycycline 02/16 Continue with GI prophylaxis famotidine for the duration of steroid. Supplemental oxygen, titrate as tolerated, on RA at bedside exam, incentive spirometry/flutter valve, proning as able. Pt remains on and off confused, pretty weak. Continue to monitor Patient will repeat repeat chest x-ray in 6-week upon discharge to document the resolution of pneumonia. #. Hypertension, HLD, CHF Patient's blood pressure running high while inpatient initially, likely secondary to acute distress of COVID/intubation. Continue with home medication metoprolol, Norvasc added, continue with Norvasc. Utilize IV hydralazine as needed. Getting hemodialysis again today (3 days in a row), BP improving, continue to monitor. #. ESRD on HD #. Electrolytes abnormality: Hyperkalemia/hyperphosphatemia Patient getting hemodialysis again today, nephrology on board, appreciate recommendation. Nephrology holding RONI given lung nodule. Appreciate nephrology recs. Continue to monitor lytes/BMP. Nephrology recommends 1.2 L fluid limit. Upon discharge, patient will need to dialyze at [facility] due to COVID status and patient will likely have to arrange transportation, patient's made aware #. Postoperative hypothyroidism: Elevated TSH and low T4 on admission labs - Per prior attending: [facility] chart reviewed and it appears levothyroxine last adjusted before June 2020. Increased levothyroxine to 137.5 mcg daily Repeat TSH as outpatient in 6 weeks #. Pulmonary nodule: 02/15/2021 CT chest: A spiculated 2.3 cm nodule in the right upper lobe, most likely malignant considering tobacco abuse history. Patient established with [facility] pulmonology and work-up in progress. Needs PET scan/potential endobronchial sampling of lymph nodes for staging. Patientneeds outpatient pulm follow-up. They have not been able to follow-up per his . Made aware the importance of pulm follow-up. Patient on minced and moist diet per speech. Full code Heparin subcu c/w PCU/telemetry. Disposition: DC uncertain. Will need rehab. PT/OT while inpatient. Admission and Anticipated Discharge Date Admission Date: February 13, 2021 Subjective Patient was lying in bed, on O2 via oxygen mask, confused, not oriented, undergoing dialysis at bedside exam. ROS n/a. Physical Exam Physical Exam: GENERAL: Drowsy and confused, not oriented. HEENT: No pallor, no icterus. Pupils equal, round and reactive to light. Oral mucosa moist. NECK: No JVD, no neck masses. HEART: S1 and S2 heard. Regular rate and rhythm. No murmur, no gallop. RESPIRATORY SYSTEM: Normal AP diameter. No accessory muscle use. No wheezing, b/b crackles. ABDOMEN: Soft, bowel sounds present, nontender, no distention. Ticklish on exam even when confused. CENTRAL NERVOUS SYSTEM: No facial droop. rest n/a d/t cognition status. EXTREMITIES: No edema, chronic skin changes noted, no erythema seen. Results & Data Results & Data ([facility]) Vital Signs (Past 12 Hours) Vital Signs Temp Pulse Pulse Pulse Resp BP BP 02/21/21 14:38 36.5 C 84 142/72 H 02/21/21 14:36 80 142/72 H 02/21/21 14:30 84 153/75 H 02/21/21 14:15 86 106/66 02/21/21 14:00 84 118/95 02/21/21 13:45 80 113/69 02/21/21 13:30 73 125/71 02/21/21 13:15 79 124/70 02/21/21 13:00 78 131/90 02/21/21 12:45 70 127/68 02/21/21 12:30 78 140/61 02/21/21 12:15 73 136/63 02/21/21 12:00 75 114/76 02/21/21 11:45 73 143/66 H 02/21/21 11:30 72 140/68 02/21/21 11:15 74 124/66 02/21/21 11:06 72 137/69 02/21/21 10:56 36.8 C 80 18 148/72 H 02/21/21 10:55 36.9 C 71 02/21/21 08:33 02/21/21 07:51 36.8 C 83 18 141/86 H 02/21/21 07:35 84 02/21/21 03:49 36.6 C 83 20 133/75 Pulse Ox 02/21/21 14:38 02/21/21 14:36 02/21/21 14:30 02/21/21 14:15 02/21/21 14:00 02/21/21 13:45 02/21/21 13:30 02/21/21 13:15 02/21/21 13:00 02/21/21 12:45 02/21/21 12:30 02/21/21 12:15 02/21/21 12:00 02/21/21 11:45 02/21/21 11:30 02/21/21 11:15 02/21/21 11:06 02/21/21 10:56 100 02/21/21 10:55 02/21/21 08:33 99 02/21/21 07:51 100 02/21/21 07:35 02/21/21 03:49 100
[2021-02-21] MEDS ORDERED: INSULIN GLARGINE SOLOSTAR 100 UNITS/ML 3 ML PEN SC ONE (21:00)
[2021-02-22] MEDS: LEVOTHYROXINE SODIUM 125 MCG TABLET PO SCH (05:55)
[2021-02-22] MEDS: HEPARIN SOD 5,000 UNIT/0.5 ML VIAL SQ SCH ×3 (05:55→22:05)
[2021-02-22 08:01] LABS: Hemoglobin 12.6 g/dL (14.0-18.0); Mean Corpuscular Hemoglobin 28.8 pg (25-34); Mean Corpuscular Hgb Conc 32.3 g/dL (32-36); Mean Platelet Volume 10.8 fL (7.4-10.4); Nucleated RBC # (auto) 0.02 K/uL (0-0); Nucleated RBC % (auto) 0.2 %; Platelet Count 325 K/uL (130-400); RDW Coefficient of Variation 18.2 % (11.5-14.5); RDW Standard Deviation 57.1 fL (36.4-46.3); Red Blood Count 4.38 M/uL (4.7-6.1); White Blood Count 11.98 K/uL (4.8-10.8)
[2021-02-22] MEDS ORDERED: CYCLOBENZAPRINE HCL 10 MG TAB PO STA (08:11)
[2021-02-22] MEDS: dexAMETHasone 6 MG in SYRINGE 0 ML IV SCH (08:22)
[2021-02-22] MEDS: SEVELAMER HCL 800 MG TABLET PO SCH ×3 (08:23→17:56)
[2021-02-22] MEDS: rOPINIRole HCL 1 MG TABLET PO SCH (08:24)
[2021-02-22] MEDS: METOPROLOL TARTRATE 50 MG TAB PO SCH ×2 (08:24→20:38)
[2021-02-22] MEDS: UMECLIDINIUM/VILANTEROL 62.5/25MCG 7 PUFFS/INHALER INH SCH (08:24)
[2021-02-22] MEDS: INSULIN GLARGINE SOLOSTAR 100 UNITS/ML 3 ML PEN SC SCH (08:26)
[2021-02-22] MEDS: amLODIPine BESYLATE 5 MG TAB PO SCH (08:26)
[2021-02-22] MEDS: INSULIN ASPART PER UNIT SC SCH ×4 (08:30→20:35)
[2021-02-22 08:55] LABS: BUN Creatinine Ratio 12.2 (10-20); Calcium 8.5 mg/dl (8.5-10.1); Creatinine Clr Calc Pharmacy 12.5 ml/min; Est GFR (African American) 12.8 ml/min; Phosphorus 8.1 mg/dl (2.5-4.9); Potassium 4.3 mmol/L (3.5-5.1)
[2021-02-22] MEDS: FAMOTIDINE 20 MG in SYRINGE 3 ML IV SCH (08:58)
[2021-02-22] MEDS: DOXYCYCLINE HYCLATE 100 MG in DEXTROSE 5% 100 ML IV SCH ×2 (08:59→20:34)
[2021-02-22] MEDS ORDERED: METOPROLOL TARTRATE 1 MG/ML VIAL IV ONE (09:56)
[2021-02-22] MEDS ORDERED: METOPROLOL TARTRATE 1 MG/ML VIAL IV STA ×2 (10:06→10:20)
[2021-02-22] MEDS ORDERED: STAT IV Infusion **Titration per Protocol STA (11:11)
[2021-02-22 11:21] LABS: Troponin I 0.11 ng/ml (0-0.04)
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
[2021-02-22] MEDS: dilTIAZem HCL 125 MG in DEXTROSE 5% 100 ML IV SCH ×2 (12:24→20:37)
[2021-02-22 13:20] LABS: Albumin Level 3.2 gm/dl (3.4-5.0); BUN Creatinine Ratio 11.6 (10-20); Bilirubin,Total 0.8 mg/dl (0.2-1.0); Calcium 8.4 mg/dl (8.5-10.1); Creatinine Clr Calc Pharmacy 11.4 ml/min; Est GFR (African American) 11.5 ml/min; Est GFR (Non-African American) 9.9 ml/min; Globulin 3.1 gm/dl (2.5-4.0); Magnesium 2.5 mg/dl (1.7-2.4); Potassium 4.4 mmol/L (3.5-5.1); Total Protein 6.3 gm/dl (6.0-8.3)
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
--- NOTE | 2021-02-22 15:31 | Hospitalist Progress Note ---
Date of Service February 22, 2021 Assessment & Plan (1) ESRD (end stage renal disease) on dialysis: (2) Respiratory failure: (3) Pneumonia due to 2019-nCoV: Plan: 70-year-old male with PMH of T2DM, ESRD on HD, SLE, Graves' disease, hyperthyroidism followed by postoperative hypothyroidism, COPD, HTN, mild AAS, A. fib, renal osteodystrophy, generalized OA, gouty arthropathy, chronic tobacco use who was recently admitted in the hospital for right leg cellulitis and fluid overload presented 02/13/2021 for shortness of breath which is getting worse 1 day [employer] associated with mild cough. He is being managed for the following: #. COVID 19 Pneumonia #. Acute respiratory failure with hypoxia #. Likely superimposed bacterial infection Shortness of breath, cough and subjective fever at presentation, needed NC O2 in ER, Tested positive for COVID02/13/21 in ED. Admitting CXR: Moderate pulmonary edema, bilateral lower lung predominant opacities suggestive of pneumonia versus atelectasis versus alveolar edema. 02/19/2021 CXR [after extubation]: Persistent interstitial thickening and bilateral opacities suggestive of infectious process versus pulmonary edema June 2019 echo: EF 55 to 60%, left ventricular systolic function normal. Patient febrile 02/16 - 02/17---> 02/16 sputum culture negative for growth, 02/16 blood culture negative for growth. Procalcitonin uptrending and elevated at 8.13 on 02/19 --- 5.97 on 02/22 COVID-positive, s/p intubation 02/16/2021 for respiratory distress, extubated 02/18/2021 c/w dexa 02/14, unable to receive remdesivir secondary to renal function. Not a candidate for baricitinib or tocilizumab due to ESRD. s/p Rocephin 02/14 - 02/21 and c/w doxycycline 02/16 Continue with GI prophylaxis famotidine for the duration of steroid. Supplemental oxygen, titrate as tolerated, on RA at bedside exam, incentive spirometry/flutter valve, proning as able. Pt remains on and off confused, pretty weak. Continue to monitor. AOx 2 today. Patient will need repeat chest x-ray in 6-week upon discharge to document the resolution of pneumonia. #. Afib RVR Patient with diagnosis of A. fib, not on anticoagulation as he easily bleeds per his and preferred not to be anticoagulated. Patient went into A. fib RVR 02/22 at 9:10 AM, I was called to evaluate the patient, status post IV push of metoprolol with heart rate still running above 140s, discussed with cardiology, updated , started patient on amiodarone, troponin elevated but at baseline, EKG likely a flutter with rates in 140s to 150s, started on diltiazem drip. Cardiology consulted, appreciate recommendation. #. Hypertension, HLD, CHF Patient's blood pressure running high while inpatient initially, likely secondary to acute distress of COVID/intubation. Continue with home medication metoprolol, Norvasc added, continue with Norvasc. Utilize IV hydralazine as needed. Patient getting hemodialysis, continue to monitor. #. ESRD on HD #. Electrolytes abnormality: Hyperkalemia/hyperphosphatemia Patient getting hemodialysis per nephrology, nephrology on board, appreciate recommendation. Nephrology holding RONI given lung nodule. Appreciate nephrology recs. Continue to monitor lytes/BMP. Nephrology recommends 1.2 L fluid limit. Upon discharge, patient will need to dialyze at [facility] due to COVID status and patient will likely have to arrange transportation, patient's made aware #. Postoperative hypothyroidism: Elevated TSH and low T4 on admission labs - Per prior attending: [facility] chart reviewed and it appears levothyroxine last adjusted before June 2020. Increased levothyroxine to 137.5 mcg daily Repeat TSH as outpatient in 6 weeks #. Pulmonary nodule: 02/15/2021 CT chest: A spiculated 2.3 cm nodule in the right upper lobe, most likely malignant considering tobacco abuse history. Patient established with [facility] pulmonology and work-up in progress. Needs PET scan/potential endobronchial sampling of lymph nodes for staging. Patientneeds outpatient pulm follow-up. They have not been able to follow-up per his . Made aware the importance of pulm follow-up. Patient on minced and moist diet per speech. Full code Heparin subcu c/w PCU/telemetry. Disposition: DC uncertain. Will need rehab. PT/OT while inpatient. Admission and Anticipated Discharge Date Admission Date: February 13, 2021 Subjective Patient was lying in bed, on room air, AO x2, NAD, denies any pain/palpitation/fever/chills/other review of symptoms. In fact patient reports feeling better with no cramps. She has been seen daily per RN, patient has been doing fine in the morning AOx3 but is confused on and off. Patient turned A. fib RVR in 140s at 9:10am and I was called to evaluate the patient. At bedside exam, patient did not have chest pain or palpitation but heart rate was in 150s to 160s. Physical Exam Physical Exam: GENERAL: AOx2, NAD, on RA HEENT: No pallor, no icterus. Pupils equal, round and reactive to light. Oral mucosa moist. NECK: No JVD, no neck masses. HEART: S1 and S2 heard. Regular rate and rhythm. No murmur, no gallop. RESPIRATORY SYSTEM: Normal AP diameter. No accessory muscle use. No wheezing, b/b crackles. ABDOMEN: Soft, bowel sounds present, nontender, no distention. Ticklish on exam. CENTRAL NERVOUS SYSTEM: No facial droop. rest n/a d/t cognition status. EXTREMITIES: No edema, chronic skin changes noted, no erythema seen. Results & Data Results & Data ([facility]) Vital Signs (Past 12 Hours) Vital Signs Temp Pulse Pulse Pulse Resp BP BP 02/22/21 14:26 129 H 91/66 L 02/22/21 12:30 145 H 90/64 L 02/22/21 11:31 37.0 C 150 H 24 83/65 L 02/22/21 10:34 144 H 85/65 L 02/22/21 10:15 147 H 86/53 L 02/22/21 10:00 144 H 95/68 L 02/22/21 09:10 140 H 02/22/21 07:25 37.0 C 68 19 112/56 L Pulse Ox 02/22/21 14:26 96 02/22/21 12:30 93 02/22/21 11:31 98 02/22/21 10:34 02/22/21 10:15 02/22/21 10:00 02/22/21 09:10 02/22/21 07:25 93
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
[2021-02-22] MEDS: ACETAMINOPHEN 325 MG TAB PO PRN (17:20)
[2021-02-22] MEDS: POLYETHYLENE (MIRALAX) 17 GM PACK PO SCH (20:34)
[2021-02-22] MEDS: DOCUSATE SODIUM 100 MG CAP PO SCH (20:34)
[2021-02-22] MEDS: CYCLOBENZAPRINE HCL 10 MG TAB PO SCH (20:38)
[2021-02-22] MEDS ORDERED: OLANZapine 10 MG/2.1 ML SDV IM STA (22:57)
[2021-02-23] MEDS: hydrOXYzine HCl 25 MG TAB PO PRN (01:55)
[2021-02-23] MEDS: ACETAMINOPHEN 325 MG TAB PO PRN ×2 (03:48→08:15)
[2021-02-23] MEDS: dilTIAZem HCL 125 MG in DEXTROSE 5% 100 ML IV SCH (05:10)
[2021-02-23] MEDS: HEPARIN SOD 5,000 UNIT/0.5 ML VIAL SQ SCH ×3 (05:58→21:57)
[2021-02-23] MEDS: LEVOTHYROXINE SODIUM 125 MCG TABLET PO SCH (05:58)
[2021-02-23 07:26] LABS: BUN Creatinine Ratio 13.5 (10-20); Calcium 8.2 mg/dl (8.5-10.1); Creatinine Clr Calc Pharmacy 8.8 ml/min; Est GFR (African American) 8.4 ml/min; Est GFR (Non-African American) 7.3 ml/min; Phosphorus 10.8 mg/dl (2.5-4.9); Potassium 5.2 mmol/L (3.5-5.1)
[2021-02-23] MEDS: INSULIN GLARGINE SOLOSTAR 100 UNITS/ML 3 ML PEN SC SCH (08:00)
[2021-02-23] MEDS: dexAMETHasone 6 MG in SYRINGE 0 ML IV SCH ×2 (08:15→10:07)
[2021-02-23] MEDS: DOCUSATE SODIUM 100 MG CAP PO SCH ×2 (08:17→20:22)
[2021-02-23] MEDS: amLODIPine BESYLATE 5 MG TAB PO SCH (08:17)
[2021-02-23] MEDS: SEVELAMER HCL 800 MG TABLET PO SCH ×3 (08:17→17:17)
[2021-02-23] MEDS: rOPINIRole HCL 0.25 MG TABLET PO SCH (08:18)
[2021-02-23] MEDS: POLYETHYLENE (MIRALAX) 17 GM PACK PO SCH (08:19)
[2021-02-23] MEDS: METOPROLOL TARTRATE 50 MG TAB PO SCH ×2 (08:19→20:23)
[2021-02-23] MEDS: INSULIN ASPART PER UNIT SC SCH ×4 (08:20→20:23)
--- NOTE | 2021-02-23 08:21 | Pharmacy Report ---
Pharmacy Glycemic Short Note 2 - Date of Service February 23, 2021 - Glycemic Short BSG Results (Last 24 hours): 02/22/21 02/22/21 02/22/21 06:34 10:18 11:30 Glucose 93 117 H POC Glucose 125 H 02/22/21 02/22/21 02/23/21 16:39 20:08 05:54 Glucose 93 POC Glucose 89 101 H 02/23/21 07:05 Glucose POC Glucose 109 H OUTPATIENT ANTIDIABETIC REGIMEN: * n/a ASSESSMENT: 02/22: * Blood sugars well controlled over last 48 hours, I discontinued HS basal last night to prevent AM fasting hypoglycemia, BSG 109mg/dl this AM, continue AM basal only. * Pt was in AFib last night; continues on Dexamethasone 6mg IV Daily 02/21: * Patient well controlled over the previous 24 hours, however,fasting BSG trending upward, received 10 units of lantus yesterday, Fasting continues to increase today, gave 15 units of lantus this morning and will set scale for PM. Patient is having dialysis today * Will continue current novolog parameters 02/19 * Patient overall well controlled for the past 72 hours. Will monitor fasting BSGs, if trending up consider adding basal insulin back. * Patient remains NPO, however is allowed applesauce with medications which is being covered with novolog. * Patient continues on IV dexamethasone 02/16: * Patient received total 33 units of insulin yesterday; 20 units basal + 13 units bolus. * BSG trended down to 56 mg/dl around midnight yesterday, most likely d/t late hemo-dialysis session. * Fasting BSG today = 93 mg/dl. Since patient was hypoglycemic last night and fasting lower today, basal insulin was discontinued this AM. * BSG trended up to 142 mg/dl before lunch today. No changes made to Novolog parameters. 02/14/21: * Mr Gustafson is a 70 y/o M with a PMH of ESRD on HD who presents with COVID- 19. He was started on dexamethasone 6 mg IV daily yesterday. * Patient's BSG on admission was 161 mg/dL (prior to dexamethasone) then 275 mg/dL at night. * Morning fasting was 297 mg/dL on PRP and 245 mg/dL on POC. * Patient with hyperkalemia so given 10 units IV insulin with 1/2 amp of D50. * Start NPH 25 units (0.3 units/kg). Novolog weight-based stress of 2 for now as patient is insulin sensitive. PLAN FOR INPATIENT GLYCEMIC CONTROL: * Basal insulin * Lantus 15 units SQ QAM * Bolus insulin * NovoLog per scale ACHS or Q6hrs while NPO * Goal Range: Low 110 mg/dL - High 140 mg/dL * Correction Factor: 25 mg/dL/unit * Nutritional / Prandial insulin per carb ratio of 1 unit per 8 grams CHO consumed PLAN FOR DISCHARGE: * HbA1C is not accurate in an individual with ESRD on HD. * Recommend monitoring blood sugars as an outpatient and following up with provider to consider if glycemic treatment is needed, may be especially needed if patient discharged on steroids
--- NOTE | 2021-02-23 09:26 | Nephrology Progress Note ---
Date of Service February 23, 2021 Assessment & Plan (1) ESRD (end stage renal disease) on dialysis: Plan: ESRD on Wednesday hemodialysis via AV fistula with chronic volume overload issues and now intermittent hyperkalemia as well as C-19 pneumonia. He had 3 L removed at dialysis on 02/20/2021. -Holding RONI given lung nodule Daily basic metabolic panel -Next dose will be tomorrow for 3-1/2 hours -1 L. (2) Pneumonia due to 2019-nCoV: Plan: Complicated by COPD exacerbation/volume overload, with these latter problems per pulmonary more likely primary in his respiratory distress. He is for outpatient lung nodule biopsy, now deferred due to his Covid status -We will continue fluid removal with dialysis (3) Fluid overload: Plan: Aggressive UF with dialysis as above; when taking p.o. again recommend 1.2 L fluid limit Admission and Anticipated Discharge Date Admission Date: February 13, 2021 Subjective Seen for ESRD. Main complaint is leg cramps during dialysis. He was in A. fib yesterday. Heart rate is controlled today. Blood pressure is low. Review of Systems Review of Systems: All other systems were reviewed and negative except as noted in HPI Physical Exam Physical Exam: General exam: Appears comfortable, no acute distress HEENT: Pupils are equal and reactive to light Neck: No JVD, neck is supple trachea is midline Respiratory system: Clear breath sounds bilaterally. Gastrointestinal: Abdomen is soft, non distended, non tender, bowel sounds are present CVS: Regular rate and rhythm. No murmurs, rubs or gallops Musculoskeletal: No joint or muscle tenderness Extremities: Non tender, no edema, peripheral pulses are present Neuro: Oriented, no tremors, no focal neurological deficits Skin: No rashes Results & Data ([facility]) Vital Signs (Past 12 Hours) Vital Signs Temp Pulse Pulse Resp BP Pulse Ox 02/23/21 07:07 36.6 C 86 20 96/74 L 94 02/23/21 02:51 36.5 C 87 18 91/62 L 95 02/22/21 23:03 87 18 95/61 L 100 Laboratory Results 02/23/21 05:54 02/22/21 02/23/21 10:18 05:54 Phosphorus 10.8 H Albumin 3.2 L
--- NOTE | 2021-02-23 09:40 | Electrocardiogram Report ---
Test Reason : Blood Pressure : / mmHG Vent. Rate : 150 BPM Atrial Rate : 153 BPM P-R Int : 000 ms QRS Dur : 088 ms QT Int : 274 ms P-R-T Axes : 000 038 243 degrees QTc Int : 432 ms Atrial fibrillation with rapid ventricular response Nonspecific T wave abnormality Abnormal ECG When compared with ECG of 15-FEB-2021 18:26, Atrial fibrillation has replaced Sinus rhythm Vent. rate has increased BY 56 BPM Nonspecific T wave abnormality now evident in Confirmed by Rich Lo ([id number]) on 02/23/2021 9:39:43 AM Referred By: Sabino uMrphy Confirmed By:Rich Lo
[2021-02-23] MEDS ORDERED: OLANZapine 10 MG/2.1 ML SDV IM STA (09:55)
[2021-02-23] MEDS: UMECLIDINIUM/VILANTEROL 62.5/25MCG 7 PUFFS/INHALER INH SCH (10:07)
[2021-02-23] MEDS: FAMOTIDINE 20 MG in SYRINGE 3 ML IV SCH (13:19)
--- NOTE | 2021-02-23 13:37 | Progress Notes ---
DATE OF NOTE: 02/23/2021. SUBJECTIVE: I am seeing the patient in followup of likely poly factorial encephalopathy in part related to COVID. The patient has not yet had a CT. I have reviewed yesterday's note, which indicated that the patient had in the past, and his had determined that he did not want to be on anticoagulants due to risk of bleeding. He is not currently on anticoagulants. Apparently overnight, the patient waxed and waned and was given some IM Zyprexa, which helped marginally. PHYSICAL EXAMINATION: On today's exam, he has a fluctuating level of consciousness. He is oriented to person, but not place. He follows some simple commands. His neck is supple. There is no fixed gaze preference. There is normal extraocular motility, facial symmetry. He moves all 4 extremities symmetrically other than some difficulty with left shoulder, which I now think to be probably shoulder pathology. Reflexes are symmetric. Toes are downgoing. IMPRESSION: Encephalopathy poly factorial related to COVID. Recommend CT of the head when able to rule out a new stroke. Today's exam, is less localizing and I suspect his left shoulder weakness is likely on the basis of shoulder pathology. I would check an ammonia level. Job ID: [id number] [id number]
[2021-02-23] MEDS ORDERED: LORazepam 1 MG/2 ML VIAL IV PRN (13:44)
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
--- NOTE | 2021-02-23 15:08 | Hospitalist Progress Note ---
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 fib, renal osteodystrophy, generalized OA, gouty arthropathy, chronic tobacco use who was recently admitted in the hospital for right leg cellulitis and fluid overload presented 02/13/2021 for shortness of breath which is getting worse 1 day [employer] associated with mild cough. He is being managed for the following: #. COVID 19 Pneumonia #. Acute respiratory failure with hypoxia #. Likely superimposed bacterial infection Shortness of breath, cough and subjective fever at presentation, needed NC O2 in ER, Tested positive for COVID02/13/21 in ED. Admitting CXR: Moderate pulmonary edema, bilateral lower lung predominant opacities suggestive of pneumonia versus atelectasis versus alveolar edema. 02/19/2021 CXR [after extubation]: Persistent interstitial thickening and bilateral opacities suggestive of infectious process versus pulmonary edema June 2019 echo: EF 55 to 60%, left ventricular systolic function normal. Patient febrile 02/16 - 02/17---> 02/16 sputum culture negative for growth, 02/16 blood culture negative for growth. Procalcitonin uptrending and elevated at 8.13 on 02/19 --- 5.97 on 02/22 COVID-positive, s/p intubation 02/16/2021 for respiratory distress, extubated 02/18/2021 s/p dexa 02/14 - 02/23, unable to receive remdesivir secondary to renal function. Not a candidate for baricitinib or tocilizumab due to ESRD. s/p Rocephin 02/14 - 02/21 and s/p doxycycline 02/16 - 02/22 Continue with GI prophylaxis famotidine for the duration of steroid. Pt on RA at bedside exam, incentive spirometry/flutter valve, proning as able. Patient will need repeat chest x-ray in 6-week upon discharge to document the resolution of pneumonia. #. Acute encephalopathy Multifactorial, ICU status, recent intubation, COVID, hemodialysis status, hospital stay Neurology on board, not able to get CT scan of the head due to agitation/conf usion Psychiatry consulted for further recommendation on agitation and for inpatient care. Pt remains on and off confused/agitated hampering clinical care/inv Avoid ativan, benadryl for agitation D/w Neurology --> ammonia level. CT scan. d/w psy --> can use one time ativan dose prior to CT scan, can use haldol for agitation as long as we can maintain on telemetry. #. Afib RVR Patient with diagnosis of A. fib, not on anticoagulation as he easily bleeds per his and preferred not to be anticoagulated. Patient went into A. fib RVR 02/22 at 9:10 AM, was on cardizem drip per Card, currently rate control. Metoprolol IV in place if oral dose cannot be used. Cardiology consulted, appreciate recommendation. #. Hypertension, HLD, CHF Patient's blood pressure running high while inpatient initially, likely secondary to acute distress of COVID/intubation. Continue with home medication metoprolol, Norvasc added, continue with Norvasc. Utilize IV hydralazine as needed. Patient getting hemodialysis MWF, continue to monitor. #. ESRD on HD #. Electrolytes abnormality: Hyperkalemia/hyperphosphatemia Patient getting hemodialysis per nephrology, nephrology on board, appreciate recommendation. Nephrology holding RONI given lung nodule. Appreciate nephrology recs. Continue to monitor lytes/BMP. Nephrology recommends 1.2 L fluid limit. Upon discharge, patient will need to dialyze at [facility] due to COVID status and patient will likely have to arrange transportation, patient's made aware #. Postoperative hypothyroidism: Elevated TSH and low T4 on admission labs - Per prior attending: Epic chart reviewed and it appears levothyroxine last adjusted before June 2020. Increased levothyroxine to 137.5 mcg daily Repeat TSH as outpatient in 6 weeks #. Pulmonary nodule: 02/15/2021 CT chest: A spiculated 2.3 cm nodule in the right upper lobe, most likely malignant considering tobacco abuse history. Patient established with [facility] pulmonology and work-up in progress. Needs PET scan/potential endobronchial sampling of lymph nodes for staging. Patientneeds outpatient pulm follow-up. They have not been able to follow-up per his . Made aware the importance of pulm follow-up. Patient on minced and moist diet per speech. Full code Heparin subcu c/w PCU/telemetry. Disposition: DC uncertain. Will need rehab. PT/OT while inpatient. Admission and Anticipated Discharge Date Admission Date: February 13, 2021 Subjective Patient was lying in bed, on room air, confused/mildly agitated, per RN he tries to climbs out of the bed and has been confused on and off with agitation requiring Zyprexa overnight and also needed in the morning. Per RN, patient has been off of oxygen since last 2 days,. Per RN, patient was being taken down for CT scan today but deemed unsafe for travel and brought back due to agitation. Discussed with neurology regarding ongoing agitation hampering daily patient care, recommends reaching out to psychiatry. Discussed with psychiatry, can use one-time dose of Ativan prior to CT scan, if needed to be used for agitation, haloperidol can be used as long as patient is on telemetry monitoring. Per RN pt is refusing EKG leads. ROS n/a d/t congintion status. Physical Exam Physical Exam: GENERAL: confused/drowsy, minimally cooperative at times. HEENT: No pallor, no icterus. Pupils equal, round and reactive to light. Oral mucosa moist. NECK: No JVD, no neck masses. HEART: S1 and S2 heard. Regular rate and rhythm. No murmur, no gallop. RESPIRATORY SYSTEM: Normal AP diameter. No accessory muscle use. No wheezing, b/b crackles. ABDOMEN: Soft, bowel sounds present, nontender, no distention. Ticklish on exam. CENTRAL NERVOUS SYSTEM: No facial droop. rest n/a d/t cognition status. EXTREMITIES: No edema, chronic skin changes noted, no erythema seen. Results & Data Results & Data ([facility]) Vital Signs (Past 12 Hours) Vital Signs Temp Pulse Pulse Resp BP Pulse Ox 02/23/21 11:13 36.5 C 75 18 97/46 L 94 02/23/21 08:00 78 02/23/21 07:07 36.6 C 86 20 96/74 L 94
--- NOTE | 2021-02-23 15:23 | CT Scan Report ---
CT head/brain wo con CLINICAL HISTORY: Confusion. COMPARISON STUDY: 02/15/2021 CT DOSE: 1418.95 mGy.cm TECHNIQUE: Standard CT of the Brain was performed without IV contrast. A dose lowering technique was utilized adhering to the principles of ALARA. FINDINGS: Extraaxial space: There is no evidence for subdural hematoma. There are no extra-axial fluid collecti ons. Ventricles and cisterns: The ventricles are mildly dilated bilaterally. There is no evidence for mid line shift or mass effect. Parenchyma: There is no subarachnoid or intraparenchymal hemorrhage. There is no evidence for an acu te infarct or cerebral edema. There is mild cerebral cortical atrophy and decreased attenuation in th e periventricular white matter representing remote small vessel disease. There are no gross mass lesi ons. Osseous structures: There is no evidence for an acute fracture. Compared to previous study, there is mucosal thickening of the left sphenoid sinus. The remaining visualized paranasal sinuses are clear. The mastoid air cells are clear bilaterally. Soft tissues: There is no evidence for focal soft tissue swelling. IMPRESSION: No acute intracerebral pathology. Cerebral cortical atrophy and remote small vessel disea se. Mild left sphenoid sinusitis. ACT 112: Negative or not required by law. Electronically signed by: Peter Monson M.D. 02/23/2021 3:21 PM
[2021-02-23] MEDS: METOPROLOL TARTRATE 1 MG/ML VIAL IV SCH ×2 (17:18→23:00)
[2021-02-23] MEDS: CYCLOBENZAPRINE HCL 10 MG TAB PO SCH (19:35)
[2021-02-24] MEDS ORDERED: ALBUMIN 25% 100 mL 25 GM/100 ML VIAL IV ONE (00:27)
[2021-02-24 01:53] LABS: Basophils # (auto) 0.01 K/uL (0-0.2); Basophils % (auto) 0.1 %; Hematocrit (blood only) 34.5 % (42-52); Hemoglobin 11.5 g/dL (14.0-18.0); Immature Granulocytes # (auto) 0.07 K/uL (0.00-0.02); Immature Granulocytes % (auto) 0.6 %; Lymphocytes # (auto) 1.05 K/uL (1.2-3.4); Lymphocytes % (auto) 8.6 %; Mean Corpuscular Hemoglobin 28.7 pg (25-34); Mean Corpuscular Hgb Conc 33.3 g/dL (32-36); Mean Platelet Volume 9.6 fL (7.4-10.4); Monocytes # (auto) 0.16 K/uL (0.11-0.59); Monocytes % (auto) 1.3 %; Neutrophils # (auto) 10.92 K/uL (1.4-6.5); Neutrophils % (auto) 89.4 %; Platelet Count 317 K/uL (130-400); RDW Coefficient of Variation 18.1 % (11.5-14.5); RDW Standard Deviation 55.2 fL (36.4-46.3); Red Blood Count 4.01 M/uL (4.7-6.1); White Blood Count 12.21 K/uL (4.8-10.8)
[2021-02-24 02:16] LABS: BUN Creatinine Ratio 14.3 (10-20); Calcium 7.4 mg/dl (8.5-10.1); Creatinine Clr Calc Pharmacy 7.4 ml/min; Est GFR (African American) 6.8 ml/min; Est GFR (Non-African American) 5.8 ml/min; Magnesium 2.9 mg/dl (1.7-2.4); Potassium 5.7 mmol/L (3.5-5.1)
[2021-02-24] MEDS: DEXTROSE 50% 50 ML SYRINGE IV PRN (02:35)
[2021-02-24] MEDS ORDERED: SODIUM BICARB 8.4% INJ 50 MEQ/50 ML SYR IV STA (02:45)
[2021-02-24] MEDS ORDERED: DEXTROSE 50% 50 ML SYRINGE IV ONE (02:45)
[2021-02-24] MEDS ORDERED: INSULIN HUMAN REGULAR PER UNIT 5 UNITS in SYRINGE 4.95 ML IV ONE (03:00)
[2021-02-24] MEDS: METOPROLOL TARTRATE 1 MG/ML VIAL IV SCH ×2 (05:55→13:03)
[2021-02-24] MEDS: LEVOTHYROXINE SODIUM 125 MCG TABLET PO SCH (05:55)
[2021-02-24] MEDS: HEPARIN SOD 5,000 UNIT/0.5 ML VIAL SQ SCH ×3 (05:57→22:26)
[2021-02-24] MEDS ORDERED: AMIODARONE IV BOLUS & DRIP IV STA (06:07)
[2021-02-24] MEDS ORDERED: STAT IV Infusion **Titration per Protocol STA (06:07)
[2021-02-24] MEDS ORDERED: AMIODARONE / D5W 150 MG/100 ML BAG IV STA (06:07)
[2021-02-24] MEDS ORDERED: 0.2 MICRON FILTER SET 1 EA IV ONE (06:07)
[2021-02-24] MEDS ORDERED: AMIODARONE / D5W 360 MG/200 ML BAG IV ONE (06:17)
[2021-02-24] MEDS ORDERED: SODIUM CHLORIDE 0.9% 1000ML 1,000 ML IV PRN (07:00)
[2021-02-24] MEDS ORDERED: HEPARIN SOD (PORCINE) 1000 UNIT/ML IV ONE (07:00)
[2021-02-24 07:55] LABS: BUN Creatinine Ratio 14.4 (10-20); Calcium 7.1 mg/dl (8.5-10.1); Est GFR (African American) 6.3 ml/min; Est GFR (Non-African American) 5.5 ml/min; Potassium 5.6 mmol/L (3.5-5.1)
[2021-02-24] MEDS: INSULIN ASPART PER UNIT SC SCH ×4 (08:01→20:31)
[2021-02-24] MEDS: DOCUSATE SODIUM 100 MG CAP PO SCH ×2 (08:08→20:04)
[2021-02-24] MEDS: UMECLIDINIUM/VILANTEROL 62.5/25MCG 7 PUFFS/INHALER INH SCH (08:09)
[2021-02-24] MEDS: SEVELAMER HCL 800 MG TABLET PO SCH ×3 (08:09→17:31)
[2021-02-24] MEDS: METOPROLOL TARTRATE 50 MG TAB PO SCH ×2 (08:09→20:04)
[2021-02-24] MEDS: rOPINIRole HCL 0.25 MG TABLET PO SCH (08:09)
[2021-02-24] MEDS: POLYETHYLENE (MIRALAX) 17 GM PACK PO SCH (08:10)
[2021-02-24] MEDS: FAMOTIDINE 20 MG in SYRINGE 3 ML IV SCH (08:11)
[2021-02-24] MEDS: amLODIPine BESYLATE 5 MG TAB PO SCH (08:20)
--- NOTE | 2021-02-24 08:29 | Electrocardiogram Report ---
Test Reason : Blood Pressure : / mmHG Vent. Rate : 095 BPM Atrial Rate : 053 BPM P-R Int : 000 ms QRS Dur : 102 ms QT Int : 348 ms P-R-T Axes : 000 043 092 degrees QTc Int : 437 ms Atrial fibrillation Nonspecific T wave abnormality Abnormal ECG When compared with ECG of 22-FEB-2021 10:08, Vent. rate has decreased BY 55 BPM Confirmed by Fred Martínez ([id number]) on 02/24/2021 8:29:41 AM Referred By: Sabino Murphy Confirmed By:Fred Martínez
[2021-02-24] MEDS: INSULIN GLARGINE SOLOSTAR 100 UNITS/ML 3 ML PEN SC SCH (09:00)
--- NOTE | 2021-02-24 09:22 | Communication Note ---
Date of Service: February 24, 2021 interim progress reviewed with liaison. patient did receive 1 mg Ativan around [address] head was completed without incident. He was also able to rest for a few hours. Issues with BP and temp overnight likely sepsis/unrelated to benzo but would avoid repeating 1 mg dose. did not require additional antipsychotic for agitation overnight. amiodarone drip. no additional recs at this time as consult was for management of acute agitation/inability to complete CT.
[2021-02-24 11:12] LABS: C Reactive Protein 8.6 mg/dl (0-0.5)
[2021-02-24] MEDS ORDERED: AMIODARONE / D5W 360 MG/200 ML BAG IV SCH (12:15)
--- NOTE | 2021-02-24 13:07 | Cardiology Progress Note ---
Date of Service February 24, 2021 Assessment & Plan (1) ESRD (end stage renal disease) on dialysis: (2) Pneumonia due to 2019-nCoV: (3) Cellulitis: (4) Type 2 diabetes mellitus: (5) SIRS (systemic inflammatory response syndrome): (6) Respiratory failure: (7) Atrial fibrillation with rapid ventricular response: (8) Acute encephalopathy: (9) Elisa-Nguyen tear: (10) Tobacco abuse: (11) Aortic stenosis: (12) COPD (chronic obstructive pulmonary disease): Plan: Medically complex 70-year-old unvaccinated male admitted to [facility] with COVID-19 pneumonia and likely lung cancer. Not surprisingly, the patient went into narrow complex tachycardia which is difficult to discern between atrial fibrillation and atrial flutter, either way, treatment options would be the same. He is to be started on a Cardizem drip for rate control. Amiodarone would be another option but given his complex lung disease and acute COVID-19 pneumonia I would be hesitant to start due to possible complications. IV sotalol is not indicated given his end-stage renal disease. Does carry history of Elisa-Nguyen tear and doubt will be a long-term anticoagulation candidate Continue current metoprolol dose as well. May require transient small fluid boluses to maintain BP. Admission and Anticipated Discharge Date Admission Date: February 13, 2021 Subjective Chart reviewed, case discussed with nursing staff. Afib with rvr overnight, started on IV amio bolus and load along with IV metoprolol. Converted to NSR this AM. Results & Data ([facility]) Vital Signs (Past 12 Hours) Vital Signs Temp Pulse Resp BP Pulse Ox 02/24/21 11:28 36.4 C L 62 22 120/61 92 02/24/21 07:23 36.4 C L 68 15 123/49 L 94 02/24/21 06:00 128 H 93/62 L 02/24/21 03:36 35.9 C L 02/24/21 02:42 103 H 14 104/75 95 (1) COPD (chronic obstructive pulmonary disease) COPD type: unspecified COPD Qualified Code(s): J44.9 - Chronic obstructive pulmonary disease, unspecified
--- NOTE | 2021-02-24 13:38 | Hospitalist Progress Note ---
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 He is being managed for the following: #. COVID 19 Pneumonia #. Acute respiratory failure with hypoxia #. Likely superimposed bacterial infection Shortness of breath, cough and subjective fever at presentation, needed NC O2 in ER, Tested positive for COVID02/13/21 in ED. Admitting CXR: Moderate pulmonary edema, bilateral lower lung predominant opacities suggestive of pneumonia versus atelectasis versus alveolar edema. 02/19/2021 CXR [after extubation]: Persistent interstitial thickening and bilateral opacities suggestive of infectious process versus pulmonary edema June 2019 echo: EF 55 to 60%, left ventricular systolic function normal. Patient febrile 02/16 - 02/17---> 02/16 sputum culture negative for growth, 02/16 blood culture negative for growth. Procalcitonin uptrending and elevated at 8.13 on 02/19 ---> then downtrended to 5.97 on 02/22 COVID-positive, s/p intubation 02/16/2021 for respiratory distress, extubated 02/18/2021 s/p dexa 02/14 - 02/23, unable to receive remdesivir secondary to renal function. Not a candidate for baricitinib or tocilizumab due to ESRD. s/p Rocephin 02/14 - 02/21 and s/p doxycycline 02/16 - 02/22. Can DC famotidine today. Pt on RA at bedside exam, incentive spirometry/flutter valve, proning as able. Patient will need repeat chest x-ray in 6-week upon discharge to document the resolution of pneumonia. #. Acute encephalopathy Multifactorial, ICU status, recent intubation, COVID, hemodialysis status, hospital stay Neurology on board, appreciate recs 02/23 CT Head: No acute intracerebral pathology; NH3 level 20.0 wnl Psychiatry consulted for further recommendation on agitation and for inpatient care. Pt remains on and off confused/agitated occasionally hampering clinical care/inv Avoid ativan, benadryl for agitation c/t monitor for resolution 02/23 d/w psy --> can use one time ativan dose prior to CT scan, can use haldol for agitation as long as we can maintain on telemetry. #. Afib RVR - resolved Patient with diagnosis of A. fib, not on anticoagulation as he easily bleeds per his and preferred not to be anticoagulated. Patient went into A. fib RVR 02/22 at 9:10 AM, received cardizem drip then amio --->converted to NSR on 02/24 at 7:20 AM. c/w metoporol Cardiology consulted, appreciate recommendation. #. Hypertension, HLD, CHF Patient's blood pressure running high while inpatient initially, likely secondary to acute distress of COVID/intubation. Continue with home medication metoprolol, Norvasc added, continue with Norvasc. Utilize IV hydralazine as needed. Patient getting hemodialysis MWF, continue to monitor. #. ESRD on HD #. Electrolytes abnormality: Hyperkalemia/hyperphosphatemia Patient getting hemodialysis per nephrology, nephrology on board, appreciate recommendation. Nephrology holding RONI given lung nodule. Appreciate nephrology recs. Continue to monitor lytes/BMP. Nephrology recommends 1.2 L fluid limit. Upon discharge, patient will need to dialyze at [facility] due to COVID status and patient will likely have to arrange transportation, patient's made aware #. Postoperative hypothyroidism: Elevated TSH and low T4 on admission labs - Per prior attending: Epic chart reviewed and it appears levothyroxine last adjusted before June 2020. Increased levothyroxine to 137.5 mcg daily Repeat TSH as outpatient in 6 weeks #. Pulmonary nodule: 02/15/2021 CT chest: A spiculated 2.3 cm nodule in the right upper lobe, most likely malignant considering tobacco abuse history. Patient established with [facility] pulmonology and work-up in progress. Needs PET scan/potential endobronchial sampling of lymph nodes for staging. Patientneeds outpatient pulm follow-up. They have not been able to follow-up per his . Made aware the importance of pulm follow-up. Patient on minced and moist diet per speech. Full code Heparin subcu c/w PCU/telemetry. Disposition: DC uncertain. Will need rehab. PT/OT while inpatient. Admission and Anticipated Discharge Date Admission Date: February 13, 2021 Subjective Patient lying in bed, on room air, drowsy and confused, oriented x1 at bedside exam. Patient denies any pain or discomfort. ROS n/a due to patient's confused status. Per RN, patient was agitated overnight and was oriented to him in the morning. Patient ate little bit of his breakfast in the morning. Patient converted into sinus rhythm at 7:20 AM today. Physical Exam Physical Exam: GENERAL: confused/drowsy, minimally cooperative at times. Ox1 HEENT: No pallor, no icterus. Pupils equal, round and reactive to light. Oral mucosa moist. NECK: No JVD, no neck masses. HEART: S1 and S2 heard. Regular rate and rhythm. No murmur, no gallop. RESPIRATORY SYSTEM: Normal AP diameter. No accessory muscle use. No wheezing, b/b crackles. ABDOMEN: Soft, bowel sounds present, nontender, no distention. Ticklish on exam. CENTRAL NERVOUS SYSTEM: No facial droop. rest n/a d/t cognition status. EXTREMITIES: No edema, chronic skin changes noted, no erythema seen. Results & Data Results & Data ([facility]) Vital Signs (Past 12 Hours) Vital Signs Temp Pulse Resp BP Pulse Ox 02/24/21 11:28 36.4 C L 62 22 120/61 92 02/24/21 07:23 36.4 C L 68 15 123/49 L 94 02/24/21 06:00 128 H 93/62 L 02/24/21 03:36 35.9 C L 02/24/21 02:42 103 H 14 104/75 95
[2021-02-24] MEDS ORDERED: diphenhydrAMINE Capsule 25 MG CAP PO ONE (15:09)
--- NOTE | 2021-02-24 15:13 | Nephrology Progress Note ---
Date of Service February 24, 2021 Assessment & Plan (1) ESRD (end stage renal disease) on dialysis: Plan: ESRD on Wednesday hemodialysis via AV fistula with chronic volume overload issues and now intermittent hyperkalemia as well as C-19 pneumonia. He had 3 L removed at dialysis on 02/20/2021. Patient tolerating dialysis well today. We will give him Benadryl 25 mg p.o. with dialysis due to agitation and cramps -Holding RONI given lung nodule Daily basic metabolic panel -Next dialysis will be Wednesday for 3-1/2 hours -1 L. (2) Pneumonia due to 2019-nCoV: Plan: Complicated by COPD exacerbation/volume overload, with these latter problems per pulmonary more likely primary in his respiratory distress. He is for outpatient lung nodule biopsy, now deferred due to his Covid status -We will continue fluid removal with dialysis (3) Fluid overload: Plan: Aggressive UF with dialysis as above; when taking p.o. again recommend 1.2 L fluid limit Admission and Anticipated Discharge Date Admission Date: February 13, 2021 Subjective Patient was seen and examined while on dialysis. He complains of cramps and restlessness on dialysis. Patient requesting Benadryl which he normally takes during dialysis. No shortness of breath. Review of Systems Review of Systems: All other systems were reviewed and negative except as noted in HPI Physical Exam Physical Exam: General exam: Appears comfortable, no acute distress HEENT: Pupils are equal and reactive to light Neck: No JVD, neck is supple trachea is midline Respiratory system: Clear breath sounds bilaterally. Gastrointestinal: Abdomen is soft, non distended, non tender, bowel sounds are present CVS: Regular rate and rhythm. No murmurs, rubs or gallops Musculoskeletal: No joint or muscle tenderness Extremities: Non tender, no edema, peripheral pulses are present Neuro: Oriented, no tremors, no focal neurological deficits Skin: No rashes Access: AV fistula with good bruit Results & Data ([facility]) Vital Signs (Past 12 Hours) Vital Signs Temp Pulse Resp BP Pulse Ox 02/24/21 11:28 36.4 C L 62 22 120/61 92 02/24/21 07:23 36.4 C L 68 15 123/49 L 94 02/24/21 06:00 128 H 93/62 L 02/24/21 03:36 35.9 C L Laboratory Results 02/24/21 06:38 02/24/21 01:25 WBC 12.21 H RBC 4.01 L MCV 86.0 MCH 28.7 MCHC 33.3 RDW Std Deviation 55.2 H RDW Coeff of Shaylee 18.1 H Plt Count 317 MPV 9.6
[2021-02-24] MEDS: HEPARIN SOD (PORCINE) 1000 UNIT/ML IV SCH (15:32)
--- NOTE | 2021-02-24 17:24 | Progress Notes ---
DATE OF SERVICE: 02/24/2021 I have reviewed Mr. Gustafson's chart today. His ammonia level was normal. CT of the head noncontra st was unremarkable. IMPRESSION: I do not think there is a primary underlying neurologic process. The patient has a polyf actorial encephalopathy related to COVID, hypoxemia, medications, renal insufficiency. We will sign off. Please reconsult if there is a new question or concern. Job ID: [id number]
[2021-02-24] MEDS: ACETAMINOPHEN 325 MG TAB PO PRN (19:47)
[2021-02-24] MEDS: diphenhydrAMINE Capsule 25 MG CAP PO PRN (20:05)
[2021-02-24] MEDS: CYCLOBENZAPRINE HCL 10 MG TAB PO SCH (20:16)
[2021-02-24] MEDS ORDERED: OLANZapine 10 MG/2.1 ML SDV IM STA (21:02)
[2021-02-24] MEDS ORDERED: LORazepam 0.5 MG/1 ML VIAL IV STA (22:34)
[2021-02-25] MEDS: LEVOTHYROXINE SODIUM 125 MCG TABLET PO SCH (05:34)
[2021-02-25] MEDS: HEPARIN SOD 5,000 UNIT/0.5 ML VIAL SQ SCH ×3 (05:35→21:12)
[2021-02-25 07:17] LABS: BUN Creatinine Ratio 9.8 (10-20); Calcium 7.2 mg/dl (8.5-10.1); Creatinine Clr Calc Pharmacy 9.6 ml/min; Est GFR (African American) 9.3 ml/min; Potassium 4.3 mmol/L (3.5-5.1)
[2021-02-25] MEDS: SEVELAMER HCL 800 MG TABLET PO SCH ×3 (08:24→17:44)
[2021-02-25] MEDS: amLODIPine BESYLATE 5 MG TAB PO SCH (08:25)
[2021-02-25] MEDS: hydrOXYzine HCl 25 MG TAB PO PRN (08:25)
[2021-02-25] MEDS: METOPROLOL TARTRATE 50 MG TAB PO SCH ×2 (08:25→21:12)
[2021-02-25] MEDS: rOPINIRole HCL 0.25 MG TABLET PO SCH (08:26)
[2021-02-25] MEDS: DOCUSATE SODIUM 100 MG CAP PO SCH ×2 (08:26→21:12)
[2021-02-25] MEDS: UMECLIDINIUM/VILANTEROL 62.5/25MCG 7 PUFFS/INHALER INH SCH (08:27)
[2021-02-25] MEDS: INSULIN ASPART PER UNIT SC SCH ×4 (08:49→19:43)
[2021-02-25] MEDS ORDERED: INSULIN GLARGINE SOLOSTAR 100 UNITS/ML 3 ML PEN SC SCH (09:00)
[2021-02-25] MEDS: ACETAMINOPHEN 325 MG TAB PO PRN ×2 (09:56→18:22)
--- NOTE | 2021-02-25 10:21 | Cardiology Progress Note ---
Date of Service February 25, 2021 Assessment & Plan (1) Paroxysmal atrial fibrillation: (2) Pneumonia due to 2019-nCoV: (3) ESRD (end stage renal disease) on dialysis: (4) Acute encephalopathy: Plan: Patient remains in sinus rhythm. Continue metoprolol tartrate 50 mg twice daily. With history of chronic anemia and Elisa-Nguyen tear, patient is a poor candidate for long-term anticoagulation. Continue to monitor telemetry. Treatment of COVID-19 as per internal medicine. Dialysis as per nephrology. Admission and Anticipated Discharge Date Admission Date: February 13, 2021 Subjective Patient seen and examined at the bedside. Cooperative however poor historian. Telemetry reveals sinus rhythm in the 60s. He converted 02/24/2021 at approximately 7 AM. Amiodarone discontinued due to concerns regarding poor pulmonary function and possible lung cancer. Currently treated with metoprolol tartrate 50 mg twice daily. Review of Systems Review of Systems: Unobtainable due to cognitive status Physical Exam Constitutional: + ill appearing Respiratory: normal respiratory effort; no respiratory distress and no labored breathing Auscultation: + crackles (Left base); no rales, no rhonchi and no wheezes Cardiovascular: Rate/Rhythm: regular rate and regular rhythm Heart Sounds: normal S1 and normal S2; no murmur Extremities: no edema Gastrointestinal (Abdomen): Inspection/Auscultation: abdomen normal to inspection; abdomen not distended Percussion/Palpation: abdomen soft; abdomen nontender, no guarding and abdomen not rigid Neurologic: CN's II-XI intact bilaterally and moves all extremities; no focal motor deficits Motor/Sensory: no tremor Results & Data ([facility]) Vital Signs (Past 12 Hours) Vital Signs Temp Pulse Pulse Resp BP BP Pulse Ox 02/25/21 08:00 72 02/25/21 07:20 141/70 H 02/25/21 07:10 36.5 C 65 18 110/40 L 92 02/25/21 02:49 36.5 C 67 20 128/90 94 02/24/21 23:00 69 02/24/21 22:35 36.5 C 70 20 120/95 94
--- NOTE | 2021-02-25 13:00 | Pharmacy Report ---
Pharmacy Glycemic Short Note 2 - Date of Service February 25, 2021 - Glycemic Short BSG Results (Last 24 hours): 02/24/21 02/24/21 02/25/21 18:12 20:21 06:29 Glucose 66 L POC Glucose 93 84 02/25/21 02/25/21 08:21 11:55 Glucose POC Glucose 73 95 OUTPATIENT ANTIDIABETIC REGIMEN: * n/a ASSESSMENT: 02/25: * Sugars well controlled over last 48 hours, fasting has trended down and slightly below goal this morning. Patient did not receive any bolus insulin yesterday, will reduce basal by ~50% * Continue current novolog parameters, dexamethasone was discontinued after the . 02/22: * Blood sugars well controlled over last 48 hours, I discontinued HS basal last night to prevent AM fasting hypoglycemia, BSG 109mg/dl this AM, continue AM basal only. * Pt was in AFib last night; continues on Dexamethasone 6mg IV Daily 02/21: * Patient well controlled over the previous 24 hours, however,fasting BSG trending upward, received 10 units of lantus yesterday, Fasting continues to increase today, gave 15 units of lantus this morning and will set scale for PM. Patient is having dialysis today * Will continue current novolog parameters 02/19 * Patient overall well controlled for the past 72 hours. Will monitor fasting BSGs, if trending up consider adding basal insulin back. * Patient remains NPO, however is allowed applesauce with medications which is being covered with novolog. * Patient continues on IV dexamethasone 02/16: * Patient received total 33 units of insulin yesterday; 20 units basal + 13 units bolus. * BSG trended down to 56 mg/dl around midnight yesterday, most likely d/t late hemo-dialysis session. * Fasting BSG today = 93 mg/dl. Since patient was hypoglycemic last night and fasting lower today, basal insulin was discontinued this AM. * BSG trended up to 142 mg/dl before lunch today. No changes made to Novolog parameters. 02/14/21: * Mr Gustafson is a 70 y/o M with a PMH of ESRD on HD who presents with COVID- 19. He was started on dexamethasone 6 mg IV daily yesterday. * Patient's BSG on admission was 161 mg/dL (prior to dexamethasone) then 275 mg/dL at night. * Morning fasting was 297 mg/dL on PRP and 245 mg/dL on POC. * Patient with hyperkalemia so given 10 units IV insulin with 1/2 amp of D50. * Start NPH 25 units (0.3 units/kg). Novolog weight-based stress of 2 for now as patient is insulin sensitive. PLAN FOR INPATIENT GLYCEMIC CONTROL: * Basal insulin * Lantus 8 units SQ QAM * Bolus insulin * NovoLog per scale ACHS or Q6hrs while NPO * Goal Range: Low 110 mg/dL - High 140 mg/dL * Correction Factor: 30 mg/dL/unit * Nutritional / Prandial insulin per carb ratio of 1 unit per 10 grams CHO consumed PLAN FOR DISCHARGE: * HbA1C is not accurate in an individual with ESRD on HD. * Recommend monitoring blood sugars as an outpatient and following up with provider to consider if glycemic treatment is needed, may be especially needed if patient discharged on steroids
--- NOTE | 2021-02-25 14:06 | Hospitalist Progress Note ---
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 fib, renal osteodystrophy, generalized OA, gouty arthropathy, chronic tobacco use who was recently admitted in the hospital for right leg cellulitis and fluid overload presented 02/13/2021 for shortness of breath which is getting worse 1 day [employer] associated with mild cough. He is being managed for the following: #. COVID 19 Pneumonia #. Acute respiratory failure with hypoxia #. Likely superimposed bacterial infection Shortness of breath, cough and subjective fever at presentation, needed NC O2 in ER, Tested positive for COVID02/13/21 in ED. Admitting CXR: Moderate pulmonary edema, bilateral lower lung predominant opacities suggestive of pneumonia versus atelectasis versus alveolar edema. 02/19/2021 CXR [after extubation]: Persistent interstitial thickening and bilateral opacities suggestive of infectious process versus pulmonary edema June 2019 echo: EF 55 to 60%, left ventricular systolic function normal. Patient febrile 02/16 - 02/17---> 02/16 sputum culture negative for growth, 02/16 blood culture negative for growth. Procalcitonin uptrending and elevated at 8.13 on 02/19 ---> then downtrended to 5.97 on 02/22 COVID-positive, s/p intubation 02/16/2021 for respiratory distress, extubated 02/18/2021 s/p dexa 02/14 - 02/23, unable to receive remdesivir secondary to renal function. Not a candidate for baricitinib or tocilizumab due to ESRD. s/p Rocephin 02/14 - 02/21 and s/p doxycycline 02/16 - 02/22. Pt on RA at bedside exam, incentive spirometry/flutter valve, proning as able. Patient will need repeat chest x-ray in 6-week upon discharge to document the resolution of pneumonia. Patient also needs follow-up with pulmonology as an outpatient for his lung nodule. #. Acute encephalopathy Multifactorial, ICU status, recent intubation, COVID, hemodialysis status, hospital stay Neurology on board, do not think primary neurological process is involved here. 02/23 CT Head: No acute intracerebral pathology; NH3 level 20.0 wnl Needed Psychiatry consulted for further recommendation on agitation and for inpatient care. Patient more alert and oriented x1 today, minimally cooperative. Avoid ativan, benadryl for agitation c/t monitor for resolution 02/23 d/w psy --> can use haldol for agitation as long as we can maintain on telemetry. #. Afib RVR - resolved Patient with diagnosis of A. fib, not on anticoagulation as he easily bleeds per his and preferred not to be anticoagulated. Patient went into A. fib RVR 02/22 at 9:10 AM, received cardizem drip then amio --->converted to NSR on 02/24 at 7:20 AM. c/w metoporol Cardiology consulted -->With history of chronic anemia and Elisa-Nguyen tear he has deemed a poor candidate for long-term anticoagulation. #. Hypertension, HLD, CHF Patient's blood pressure running high while inpatient initially, likely secondary to acute distress of COVID/intubation. Continue with home medication metoprolol, Norvasc added, continue with Norvasc. Utilize IV hydralazine as needed. Patient getting hemodialysis MWF, continue to monitor. #. ESRD on HD #. Electrolytes abnormality: Hyperkalemia/hyperphosphatemia Patient getting hemodialysis per nephrology, nephrology on board, appreciate recommendation. Nephrology holding RONI given lung nodule. Appreciate nephrology recs. Continue to monitor lytes/BMP. Nephrology recommends 1.2 L fluid limit. Upon discharge, patient will need to dialyze at [facility] due to COVID status and patient will likely have to arrange transportation, patient's made aware #. Postoperative hypothyroidism: Elevated TSH and low T4 on admission labs - Per prior attending: Epic chart reviewed and it appears levothyroxine last adjusted before June 2020. Increased levothyroxine to 137.5 mcg daily Repeat TSH as outpatient in 6 weeks #. Pulmonary nodule: 02/15/2021 CT chest: A spiculated 2.3 cm nodule in the right upper lobe, most li katty malignant considering tobacco abuse history. Patient established with [facility] pulmonology and work-up in progress. Needs PET scan/potential endobronchial sampling of lymph nodes for staging. Patientneeds outpatient pulm follow-up. They have not been able to follow-up per his . Made aware the importance of pulm follow-up. Patient on minced and moist diet per speech. Full code Heparin subcu c/w PCU/telemetry. Disposition: Expect DC in 2 to 3 days if no new issues arise. Will need rehab. PT/OT while inpatient. 02/20/21 --> patient's Joan given a phone call and updated about current status of the patient. Updated her that patient is being managed for his COVID/superimposed bacterial pneumonia/ongoing need for hemodialysis for his fluid overload. Reemphasized the importance of pulmonology follow-up for his lung nodule diagnosis and also made aware that he needs to go to a different dialysis facility due to his COVID status and family will have to arrange the transportation. Patient's to figure out this with case reviewer. Also made aware that patient will need follow-up chest x-ray in 6 weeks to document resolution of pneumonia. Also made aware that the patient is very weak due to his acute illnesses and might likely need rehab placement. 02/25/21 --> patient's Joan given a phone call and updated on current status of the patient. She had questions about his recent CT scan and how he is doing mentation voss. Discussed that neurology has not suspected any neurological process at this point and his CT scan has been negative, likely could be various reasons including recent steroids/ICU/intubation. Updated that he should be gradually better with discontinuation of the steroid and will need to continue to monitor until he is moving towards his baseline. She voiced understanding and was agreeable to the plan of care. Admission and Anticipated Discharge Date Admission Date: February 13, 2021 Subjective Patient seen and examined at the bedside. Lying in bed, on room air, NAD. Patient is eating and moving bowels okay. Patient denies any chest pain/fever/cough/palpitations/discomfort/cough/other review of symptoms. Patient remains alert and oriented x1. Physical Exam Physical Exam: GENERAL: Alert, somewhat cooperative, room air, NAD. AOx1 HEENT: No pallor, no icterus. Pupils equal, round and reactive to light. Oral mucosa moist. NECK: No JVD, no neck masses. HEART: S1 and S2 heard. Regular rate and rhythm. No murmur, no gallop. RESPIRATORY SYSTEM: Normal AP diameter. No accessory muscle use. No wheezing, b/b crackles. ABDOMEN: Soft, bowel sounds present, nontender, no distention. Ticklish on exam. CENTRAL NERVOUS SYSTEM: No facial droop. rest n/a d/t cognition status. EXTREMITIES: No edema, chronic skin changes noted, no erythema seen. Results & Data Results & Data ([facility]) Vital Signs (Past 12 Hours) Vital Signs Temp Pulse Pulse Resp BP BP Pulse Ox 02/25/21 11:22 36.5 C 62 16 143/64 H 02/25/21 08:00 72 02/25/21 07:20 141/70 H 02/25/21 07:10 36.5 C 65 18 110/40 L 92 02/25/21 02:49 36.5 C 67 20 128/90 94
[2021-02-25] MEDS: diphenhydrAMINE Capsule 25 MG CAP PO PRN (15:19)
[2021-02-25] MEDS: CYCLOBENZAPRINE HCL 10 MG TAB PO SCH (19:37)
[2021-02-25] MEDS: traMADol HCL 50 MG TABLET PO PRN (21:11)
[2021-02-26] MEDS: traMADol HCL 50 MG TABLET PO PRN ×3 (05:21→22:01)
[2021-02-26] MEDS: HEPARIN SOD 5,000 UNIT/0.5 ML VIAL SQ SCH ×4 (06:20→23:30)
[2021-02-26] MEDS: LEVOTHYROXINE SODIUM 125 MCG TABLET PO SCH (06:21)
[2021-02-26 06:50] LABS: BUN Creatinine Ratio 9.8 (10-20); Calcium 6.8 mg/dl (8.5-10.1); Creatinine Clr Calc Pharmacy 7.6 ml/min; Potassium 5.6 mmol/L (3.5-5.1)
[2021-02-26] MEDS: INSULIN ASPART PER UNIT SC SCH ×4 (07:20→20:06)
[2021-02-26] MEDS: CARBOHYDRATES FOR HYPOGLYCEMIA PO PRN (07:48)
[2021-02-26] MEDS: DEXTROSE 50% 50 ML SYRINGE IV PRN (07:49)
[2021-02-26] MEDS ORDERED: HEPARIN SOD (PORCINE) 1000 UNIT/ML IV ONE (07:55)
[2021-02-26] MEDS ORDERED: SODIUM CHLORIDE 0.9% 1000ML 1,000 ML IV PRN (07:55)
[2021-02-26] MEDS: METOPROLOL TARTRATE 50 MG TAB PO SCH ×2 (08:00→23:30)
[2021-02-26] MEDS: SEVELAMER HCL 800 MG TABLET PO SCH ×3 (08:05→17:44)
[2021-02-26] MEDS: DOCUSATE SODIUM 100 MG CAP PO SCH ×2 (08:05→23:30)
[2021-02-26] MEDS: rOPINIRole HCL 0.25 MG TABLET PO SCH (08:07)
[2021-02-26] MEDS: UMECLIDINIUM/VILANTEROL 62.5/25MCG 7 PUFFS/INHALER INH SCH (08:08)
[2021-02-26] MEDS: amLODIPine BESYLATE 5 MG TAB PO SCH (09:34)
[2021-02-26] MEDS: ACETAMINOPHEN 325 MG TAB PO PRN ×2 (09:34→17:44)
--- NOTE | 2021-02-26 10:19 | Communication Note ---
Date of Service: February 26, 2021 Patient remains confused, more restless when in pain, has not required additional prn. awaiting rehab placement. No additional recs at this time.
--- NOTE | 2021-02-26 10:50 | Cardiology Progress Note ---
Date of Service February 26, 2021 Assessment & Plan (1) Paroxysmal atrial fibrillation: (2) Pneumonia due to 2019-nCoV: (3) ESRD (end stage renal disease) on dialysis: (4) Acute encephalopathy: Plan: Continue metoprolol tartrate 50 mg twice daily. He did not receive his a.m. dose due to sinus bradycardia. I will change hold parameters for heart rate less than 50 bpm. With history of chronic anemia and Elisa-Nguyen tear, patient is a poor candidate for long-term anticoagulation. Continue to monitor telemetry. Treatment of COVID-19 as per internal medicine. Dialysis as per nephrology. Admission and Anticipated Discharge Date Admission Date: February 13, 2021 Subjective Patient seen and examined at bedside. Lying in bed supine on room air. Denies chest pain or palpitations. Telemetry demonstrates sinus rhythm. More alert today. Denies orthopnea or PND. Complains of mild right hip discomfort. Offers no other concerns/complaints. Review of Systems Review of Systems: All systems reviewed & are unremarkable except as noted in Subjective Physical Exam Constitutional: + ill appearing Respiratory: normal respiratory effort; no respiratory distress and no labored breathing Auscultation: + crackles (Left base); no rales, no rhonchi and no wheezes Cardiovascular: Rate/Rhythm: regular rate and regular rhythm Heart Sounds: normal S1 and normal S2; no murmur Extremities: no edema Gastrointestinal (Abdomen): Inspection/Auscultation: abdomen normal to inspection; abdomen not distended Percussion/Palpation: abdomen soft; abdomen nontender, no guarding and abdomen not rigid Neurologic: CN's II-XI intact bilaterally and moves all extremities; no focal motor deficits Motor/Sensory: no tremor Results & Data ([facility]) Vital Signs (Past 12 Hours) Vital Signs Temp Pulse Pulse Pulse Pulse Resp BP 02/26/21 09:30 02/26/21 07:16 36.7 C 58 L 22 02/26/21 04:25 36.6 C 52 L 14 118/48 L 02/25/21 23:59 50 L 02/25/21 23:01 36.5 C 54 L 16 122/59 L BP Pulse Ox 02/26/21 09:30 143/66 H 02/26/21 07:16 107/57 L 97 02/26/21 04:25 96 02/25/21 23:59 02/25/21 23:01 98
--- NOTE | 2021-02-26 11:47 | Hospitalist Progress Note ---
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 He is being managed for the following: #. COVID 19 Pneumonia #. Acute respiratory failure with hypoxia #. Likely superimposed bacterial infection Shortness of breath, cough and subjective fever at presentation, needed NC O2 in ER, Tested positive for COVID02/13/21 in ED. Admitting CXR: Moderate pulmonary edema, bilateral lower lung predominant opacities suggestive of pneumonia versus atelectasis versus alveolar edema. June 2019 echo: EF 55 to 60%, left ventricular systolic function normal. Patient febrile 02/16 - 02/17---> 02/16 sputum culture negative for growth, 02/16 blood culture negative for growth. Procalcitonin uptrending and elevated at 8.13 on 02/19 ---> then downtrended to 5.97 on 02/22 COVID-positive, s/p intubation 02/16/2021 for respiratory distress, extubated 02/18/2021 s/p dexa 02/14 - 02/23, unable to receive remdesivir secondary to renal function. Not a candidate for baricitinib or tocilizumab due to ESRD. s/p Rocephin 02/14 - 02/21 and s/p doxycycline 02/16 - 02/22. 02/19/2021 CXR [after extubation]: Persistent interstitial thickening and bilateral opacities suggestive of infectious process versus pulmonary edema Currently on room air. Patient can get repeat chest x-ray in 6-week upon discharge Patient also needs follow-up with pulmonology as an outpatient for his lung nodule. #. Acute encephalopathy Multifactorial, ICU status, recent intubation, COVID, hemodialysis status, hospital stay Neurologist evaluation noted- did not think primary neurological process was involved. 1/16 CT Head: No acute intracerebral pathology; NH3 level 20.0 wnl Psych eval noted Avoid ativan, benadryl as much as possible for agitation 02/23 d/w psy --> can use haldol for agitation as long as we can maintain on telemetry. Patient appears to be improving as he is AOx3 this morning Hold hydroxyzine for now #. Afib RVR - resolved Patient with diagnosis of A. fib, not on anticoagulation as he easily bleeds per his and preferred not to be anticoagulated. Patient went into A. fib RVR 02/22 at 9:10 AM, received cardizem drip then amio --->converted to NSR on 02/24 at 7:20 AM. Cardiology consulted -->With history of chronic anemia and Elisa-Nguyen tear he has deemed a poor candidate for long-term anticoagulation. Rate controlled with metoprolol #. Hypertension, HLD, CHF Patient's blood pressure running high while inpatient initially, likely secondary to acute distress of COVID/intubation. Continue Norvasc added during this admission BP appear better controlled at this time Patient getting hemodialysis MWF, continue to monitor. #. ESRD on HD #. Electrolytes abnormality: Hyperkalemia/hyperphosphatemia Patient getting hemodialysis per nephrology, nephrology on board, appreciate recommendation. Nephrology holding RONI given lung nodule. Appreciate nephrology recs. Continue to monitor lytes/BMP. Continue fluid restriction 1.2L per nephro Upon discharge, patient will need to dialyze at [facility] due to COVID status and patient will likely have to arrange transportation, patient's made aware #. Postoperative hypothyroidism: Elevated TSH and low T4 on admission labs - Per prior attending: Epic chart reviewed and it appears levothyroxine last adjusted before June 2020. Increased levothyroxine to 137.5 mcg daily Repeat TSH as outpatient in 6 weeks from admission #. Pulmonary nodule: 02/15/2021 CT chest: A spiculated 2.3 cm nodule in the right upper lobe, most likely malignant considering tobacco abuse history. Patient established with [facility] pulmonology and work-up in progress. Needs PET scan/potential endobronchial sampling of lymph nodes for staging. Patientneeds outpatient pulm follow-up. They have not been able to follow-up per his . Made aware the importance of pulm follow-up. Patient on minced and moist diet per speech. Full code Heparin subcu c/w PCU/telemetry. Disposition: Possible dc to rehab in 1-2 days if continuing improvement Admission and Anticipated Discharge Date Admission Date: February 13, 2021 Subjective Patient seen and examined. Patient is currently alert and oriented to person place and time. Denied any cough, chest pain, shortness of breath Denies any nausea, vomiting, abdominal pain or diarrhea. Reports occasional crampy pain in the left leg which he reports is similar to pain in with HD. Physical Exam Constitutional: + well hydrated; no acute distress Eyes: PERRL, conjunctivae normal, anicteric sclerae ENMT: external ear and nose normal, oropharynx normal Respiratory: normal respiratory effort; no respiratory distress Minimal basal crackles Cardiovascular: Rate/Rhythm: regular rate and regular rhythm S1 S2 Gastrointestinal (Abdomen): normal bowel sounds, soft, nontender, no hepatosplenomegaly Musculoskeletal: no cyanosis or clubbing, extremities motor strength 5/5 Neurologic: PERRL, EOMI, accommodation nl, no face palsy, no dysarthria Psychiatric: A+Ox3, euthymic affect Results & Data Results & Data ([facility]) Vital Signs (Past 12 Hours) Vital Signs Temp Pulse Pulse Pulse Resp BP BP 02/26/21 11:25 36.4 C L 57 L 19 139/66 02/26/21 10:56 56 L 02/26/21 09:30 143/66 H 02/26/21 07:16 36.7 C 58 L 22 107/57 L 02/26/21 04:25 36.6 C 52 L 14 118/48 L 02/25/21 23:59 50 L Pulse Ox 02/26/21 11:25 93 02/26/21 10:56 02/26/21 09:30 02/26/21 07:16 97 02/26/21 04:25 96 02/25/21 23:59 Laboratory Results Abnormal lab results 02/26/21 02/26/21 02/26/21 Range/Units 05:29 07:12 07:14 Sodium 133 L (136-145) mmol/L Potassium 5.6 H D (3.5-5.1) mmol/L Chloride 95 L (98-107) mmol/L Anion Gap 16 H (3-11) BUN 79 H (6-23) mg/dl Creatinine 8.07 H* D (0.6-1.4) mg/dl BUN/Creatinine Ratio 9.8 L (10-20) Glucose 66 L (70-99(Fasting)) mg/dl POC Glucose 63 L* 67 L* (70-99) mg/dl Calcium 6.8 L (8.5-10.1) mg/dl 02/26/21 02/26/21 02/26/21 Range/Units 07:37 09:10 11:24 Sodium (136-145) mmol/L Potassium (3.5-5.1) mmol/L Chloride (98-107) mmol/L Anion Gap (3-11) BUN (6-23) mg/dl Creatinine (0.6-1.4) mg/dl BUN/Creatinine Ratio (10-20) Glucose (70-99(Fasting)) mg/dl POC Glucose 66 L* 174 H 142 H (70-99) mg/dl Calcium (8.5-10.1) mg/dl
--- NOTE | 2021-02-26 18:09 | Nephrology Progress Note ---
Date of Service February 26, 2021 Assessment & Plan (1) ESRD (end stage renal disease) on dialysis: Plan: ESRD on Wednesday hemodialysis via AV fistula with chronic volume overload issues and now intermittent hyperkalemia as well as C-19 pneumonia. He had 3 L removed at dialysis on 02/20/2021. tolerated only 900 mL UF 02/24. We will give him Benadryl 25 mg p.o. with dialysis due to agitation and cramps -Holding RONI given lung nodule Daily basic metabolic panel -Next dialysis will be Wednesday for 3-1/4 hours -1-1.5 L. (2) Pneumonia due to 2019-nCoV: Plan: Complicated by COPD exacerbation/volume overload, with these latter problems per pulmonary more likely primary in his respiratory distress. He is for outpatient lung nodule biopsy, now deferred due to his Covid status -We will continue fluid removal with dialysis (3) Fluid overload: Plan: Aggressive UF with dialysis as above, at least as aggressive as he will tolerate which is at times not much -continue 1.2 L fluid limit Admission and Anticipated Discharge Date Admission Date: February 13, 2021 Subjective seen on rounds at about 1330; had been on 1:1 as recently as yesterday; for d/c to rehab; c/o marked leg pain /hyperesthesias distally; breathing better but still touch and go he states Review of Systems Review of Systems: All systems reviewed & are unremarkable except as noted in Subjective Physical Exam Constitutional: well developed, well nourished and cooperative; no acute distress Eyes: EOM intact bilaterally ENMT: Ears: no external ear abnormality Nose: no external nose abnormality Mouth: + dry oral mucous membranes Neck: no nuchal rigidity Respiratory: normal respiratory effort, + cough and able to speak in complete sentences Auscultation: + diminished lung sounds, + rhonchi and + bronchovesicular breath sounds Cardiovascular: Rate/Rhythm: regular rate and regular rhythm Extremities: + edema (1+ pedal) and + AV fistula (+t/b) Gastrointestinal (Abdomen): Inspection/Auscultation: normal bowel sounds Percussion/Palpation: abdomen soft; abdomen nontender Musculoskeletal: Extremities: strength 5/5 throughout Skin: no rashes, warm and dry Neurologic: bobby, fluent speech, no tremor Psychiatric: Orientation: alert and oriented x 3 Affect: + anxious affect Results & Data ([facility]) Vital Signs (Past 12 Hours) Vital Signs Temp Pulse Pulse Pulse Resp BP Pulse Ox 02/26/21 15:20 36.5 C 60 16 142/60 H 100 02/26/21 11:25 36.4 C L 57 L 19 139/66 93 02/26/21 10:56 56 L 02/26/21 09:30 143/66 H 02/26/21 07:16 36.7 C 58 L 22 107/57 L 97 Laboratory Results 02/24/21 01:25 02/26/21 05:29
[2021-02-26] MEDS: diphenhydrAMINE Capsule 25 MG CAP PO PRN (19:35)
[2021-02-26] MEDS: HEPARIN SOD (PORCINE) 1000 UNIT/ML IV SCH ×2 (21:31→22:19)
[2021-02-26] MEDS: CYCLOBENZAPRINE HCL 10 MG TAB PO SCH (23:30)
[2021-02-27] MEDS: traMADol HCL 50 MG TABLET PO PRN ×3 (04:19→19:24)
[2021-02-27] MEDS: LEVOTHYROXINE SODIUM 125 MCG TABLET PO SCH (05:53)
[2021-02-27] MEDS: HEPARIN SOD 5,000 UNIT/0.5 ML VIAL SQ SCH ×3 (05:54→23:21)
[2021-02-27 06:20] LABS: Hematocrit (blood only) 40.1 % (42-52); Hemoglobin 13.1 g/dL (14.0-18.0); Mean Corpuscular Hemoglobin 28.7 pg (25-34); Mean Corpuscular Hgb Conc 32.7 g/dL (32-36); Mean Corpuscular Volume 87.7 fL (80-100); Mean Platelet Volume 10.5 fL (7.4-10.4); Nucleated RBC # (auto) 0.08 K/uL (0-0); Nucleated RBC % (auto) 0.7 %; Platelet Count 235 K/uL (130-400); RDW Coefficient of Variation 18.8 % (11.5-14.5); RDW Standard Deviation 58.7 fL (36.4-46.3); Red Blood Count 4.57 M/uL (4.7-6.1); White Blood Count 11.35 K/uL (4.8-10.8)
[2021-02-27 06:39] LABS: BUN Creatinine Ratio 6.5 (10-20); Calcium 7.7 mg/dl (8.5-10.1); Creatinine Clr Calc Pharmacy 10.8 ml/min; Est GFR (African American) 10.7 ml/min; Est GFR (Non-African American) 9.3 ml/min
[2021-02-27] MEDS: INSULIN ASPART PER UNIT SC SCH ×3 (08:12→20:42)
[2021-02-27] MEDS: DOCUSATE SODIUM 100 MG CAP PO SCH ×2 (08:18→20:31)
[2021-02-27] MEDS: METOPROLOL TARTRATE 50 MG TAB PO SCH ×2 (08:18→20:33)
[2021-02-27] MEDS: SEVELAMER HCL 800 MG TABLET PO SCH ×3 (08:18→17:18)
[2021-02-27] MEDS: amLODIPine BESYLATE 5 MG TAB PO SCH (08:18)
[2021-02-27] MEDS: rOPINIRole HCL 0.25 MG TABLET PO SCH (08:19)
[2021-02-27] MEDS: UMECLIDINIUM/VILANTEROL 62.5/25MCG 7 PUFFS/INHALER INH SCH (08:19)
[2021-02-27] MEDS: ACETAMINOPHEN 325 MG TAB PO PRN (08:20)
--- NOTE | 2021-02-27 11:57 | Hospitalist Progress Note ---
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 He is being managed for the following: #. COVID 19 Pneumonia #. Acute respiratory failure with hypoxia #. Likely superimposed bacterial infection Shortness of breath, cough and subjective fever at presentation, needed NC O2 in ER, Tested positive for COVID02/13/21 in ED. Admitting CXR: Moderate pulmonary edema, bilateral lower lung predominant opacities suggestive of pneumonia versus atelectasis versus alveolar edema. June 2019 echo: EF 55 to 60%, left ventricular systolic function normal. Patient febrile 02/16 - 02/17---> 02/16 sputum culture negative for growth, 02/16 blood culture negative for growth. Procalcitonin uptrending and elevated at 8.13 on 02/19 ---> then downtrended to 5.97 on 02/22 COVID-positive, s/p intubation 02/16/2021 for respiratory distress, extubated 02/18/2021 s/p dexa 02/14 - 02/23, unable to receive remdesivir secondary to renal function. Not a candidate for baricitinib or tocilizumab due to ESRD. s/p Rocephin 02/14 - 02/21 and s/p doxycycline 02/16 - 02/22. 02/19/2021 CXR [after extubation]: Persistent interstitial thickening and bilateral opacities suggestive of infectious process versus pulmonary edema Currently on room air. Patient can get repeat chest x-ray in 6-week upon discharge Patient also needs follow-up with pulmonology as an outpatient for his lung nodule. #. Acute encephalopathy Multifactorial, ICU status, recent intubation, COVID, hemodialysis status, hospital stay Neurologist evaluation noted- did not think primary neurological process was involved. 1/16 CT Head: No acute intracerebral pathology; NH3 level 20.0 wnl Psych eval noted Avoid ativan, benadryl as much as possible for agitation 02/23 d/w psy --> can use haldol for agitation as long as we can maintain on telemetry. Encephalopathy seem to be resolved Seem patient occasionally gets sundowning in the past few days #. Afib RVR - resolved Patient with diagnosis of A. fib, not on anticoagulation as he easily bleeds per his and preferred not to be anticoagulated. Patient went into A. fib RVR 02/22 at 9:10 AM, received cardizem drip then amio --->converted to NSR on 02/24 at 7:20 AM. Cardiology consulted -->With history of chronic anemia and Elisa-Nguyen tear he has deemed a poor candidate for long-term anticoagulation. Rate controlled with metoprolol #. Hypertension, HLD, CHF Patient's blood pressure running high while inpatient initially, likely secondary to acute distress of COVID/intubation. Continue Norvasc added during this admission BP appear better controlled at this time Patient getting hemodialysis MWF, continue to monitor. #. ESRD on HD #. Electrolytes abnormality: Hyperkalemia/hyperphosphatemia Patient getting hemodialysis per nephrology, nephrology on board, appreciate recommendation. Nephrology holding RONI given lung nodule. Appreciate nephrology recs. Continue to monitor lytes/BMP. Continue fluid restriction 1.2L per nephro #. Postoperative hypothyroidism: Elevated TSH and low T4 on admission labs - Per prior attending: Epic chart reviewed and it appears levothyroxine last adjusted before June 2020. Increased levothyroxine to 137.5 mcg daily Repeat TSH as outpatient in 6 weeks from admission #. Pulmonary nodule: 02/15/2021 CT chest: A spiculated 2.3 cm nodule in the right upper lobe, most likely malignant considering tobacco abuse history. Patient established with [facility] pulmonology and work-up in progress. Needs PET scan/potential endobronchial sampling of lymph nodes for staging. Patientneeds outpatient pulm follow-up. They have not been able to follow-up per his . Made aware the importance of pulm follow-up. Patient on minced and moist diet per speech. Full code Heparin subcu c/w PCU/telemetry. Disposition: Can dc to rehab once bed is available Admission and Anticipated Discharge Date Admission Date: February 13, 2021 Subjective Patient seen and examined. Reports of left hip/leg pain worse with laying in bed for a while I helped patient with COMMODITY LEAD to the bedside chair. Reports feeling better Denied any cough, chest pain, shortness of breath Denies any nausea, vomiting, abdominal pain or diarrhea. Physical Exam Constitutional: + well hydrated; no acute distress Eyes: PERRL, conjunctivae normal, anicteric sclerae ENMT: external ear and nose normal, oropharynx normal Respiratory: normal respiratory effort; no respiratory distress Diminished breath sounds Cardiovascular: Rate/Rhythm: regular rate and regular rhythm S1 S2 Gastrointestinal (Abdomen): normal bowel sounds, soft, nontender, no hepatos plenomegaly Musculoskeletal: Pedal edema Neurologic: PERRL, EOMI, accommodation nl, no face palsy, no dysarthria Psychiatric: A+Ox3, euthymic affect Results & Data Results & Data ([facility]) Vital Signs (Past 12 Hours) Vital Signs Temp Pulse Pulse Resp BP BP Pulse Ox 02/27/21 07:22 36.6 C 70 18 138/60 93 02/27/21 04:25 36.5 C 63 18 140/61 96 Laboratory Results Abnormal lab results 02/26/21 02/26/21 02/27/21 Range/Units 16:45 20:00 05:21 WBC 11.35 H (4.8-10.8) K/uL RBC 4.57 L (4.7-6.1) M/uL Hgb 13.1 L (14.0-18.0) g/dL Hct 40.1 L (42-52) % RDW Std Deviation 58.7 H (36.4-46.3) fL RDW Coeff of Shaylee 18.8 H (11.5-14.5) % MPV 10.5 H (7.4-10.4) fL Absolute Nucleated RBC 0.08 H (0-0) K/uL Anion Gap (3-11) BUN (6-23) mg/dl Creatinine (0.6-1.4) mg/dl BUN/Creatinine Ratio (10-20) Glucose (70-99(Fasting)) mg/dl POC Glucose 116 H 121 H (70-99) mg/dl Calcium (8.5-10.1) mg/dl 02/27/21 02/27/21 Range/Units 05:21 12:15 WBC (4.8-10.8) K/uL RBC (4.7-6.1) M/uL Hgb (14.0-18.0) g/dL Hct (42-52) % RDW Std Deviation (36.4-46.3) fL RDW Coeff of Shaylee (11.5-14.5) % MPV (7.4-10.4) fL Absolute Nucleated RBC (0-0) K/uL Anion Gap 14 H (3-11) BUN 37 H D (6-23) mg/dl Creatinine 5.66 H* D (0.6-1.4) mg/dl BUN/Creatinine Ratio 6.5 L (10-20) Glucose 111 H (70-99(Fasting)) mg/dl POC Glucose 144 H (70-99) mg/dl Calcium 7.7 L (8.5-10.1) mg/dl
[2021-02-27] MEDS: CYCLOBENZAPRINE HCL 10 MG TAB PO SCH (20:31)
[2021-02-27] MEDS ORDERED: HYDROmorphone INJ 0.5 MG/0.5 ML SYR IV STA (22:27)
[2021-02-28] MEDS ORDERED: HYDROmorphone INJ 0.5 MG/0.5 ML SYR IV PRN (00:33)
[2021-02-28] MEDS: LEVOTHYROXINE SODIUM 125 MCG TABLET PO SCH (05:40)
[2021-02-28] MEDS: HEPARIN SOD 5,000 UNIT/0.5 ML VIAL SQ SCH ×3 (05:40→21:04)
--- NOTE | 2021-02-28 07:34 | CT Scan Report ---
LEFT HIP CT CT DOSE: 169.46 mGy.cm HISTORY: left hip pain TECHNIQUE: Multiaxial CT images of the left hip were performed and reformatted in the sagittal and co estevan plane without the use of contrast. A dose lowering technique was utilized adhering to the prin ciples of MIGUELINA. COMPARISON: Abdomen and pelvis CT 02/03/2021. FINDINGS: No fracture or dislocation within the left hip. The visualized pelvic bones are intact. The re is moderate cartilage space narrowing and small marginal osteophytes at the left hip joint consist ent with degenerative change. No significant hip effusion. Vascular calcifications are noted. No soft tissue swelling. IMPRESSION: 1. No fracture or dislocation within the left hip. 2. Moderate osteoarthritis. ACT 112: Negative or not required by law. Electronically signed by: Burke Jaimes M.D. 02/28/2021 7:33 AM
[2021-02-28] MEDS ORDERED: HEPARIN SOD (PORCINE) 1000 UNIT/ML IV SCH (08:00)
[2021-02-28] MEDS ORDERED: SODIUM CHLORIDE 0.9% 1000ML 1,000 ML IV PRN ×2 (08:12→18:13)
[2021-02-28] MEDS: SEVELAMER HCL 800 MG TABLET PO SCH ×3 (08:59→17:33)
[2021-02-28] MEDS: amLODIPine BESYLATE 5 MG TAB PO SCH (08:59)
[2021-02-28] MEDS: METOPROLOL TARTRATE 50 MG TAB PO SCH ×2 (08:59→21:05)
[2021-02-28] MEDS: rOPINIRole HCL 0.25 MG TABLET PO SCH (09:00)
[2021-02-28] MEDS: DOCUSATE SODIUM 100 MG CAP PO SCH ×2 (09:00→21:04)
[2021-02-28] MEDS: INSULIN ASPART PER UNIT SC SCH ×3 (09:01→20:30)
[2021-02-28] MEDS: UMECLIDINIUM/VILANTEROL 62.5/25MCG 7 PUFFS/INHALER INH SCH (09:01)
--- NOTE | 2021-02-28 11:15 | Hospitalist Progress Note ---
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 He is being managed for the following: #. COVID 19 Pneumonia #. Acute respiratory failure with hypoxia #. Likely superimposed bacterial infection Shortness of breath, cough and subjective fever at presentation, needed NC O2 in ER, Tested positive for COVID02/13/21 in ED. Admitting CXR: Moderate pulmonary edema, bilateral lower lung predominant opacities suggestive of pneumonia versus atelectasis versus alveolar edema. June 2019 echo: EF 55 to 60%, left ventricular systolic function normal. Patient febrile 02/16 - 02/17---> 02/16 sputum culture negative for growth, 02/16 blood culture negative for growth. Procalcitonin uptrending and elevated at 8.13 on 02/19 ---> then downtrended to 5.97 on 02/22 COVID-positive, s/p intubation 02/16/2021 for respiratory distress, extubated 02/18/2021 s/p dexa 02/14 - 02/23, unable to receive remdesivir secondary to renal function. Not a candidate for baricitinib or tocilizumab due to ESRD. s/p Rocephin 02/14 - 02/21 and s/p doxycycline 02/16 - 02/22. 02/19/2021 CXR [after extubation]: Persistent interstitial thickening and bilateral opacities suggestive of infectious process versus pulmonary edema Currently on room air. Patient can get repeat chest x-ray in 6-week upon discharge Patient also needs follow-up with pulmonology as an outpatient for his lung nodule. #. Acute encephalopathy Multifactorial, ICU status, recent intubation, COVID, hemodialysis status, hospital stay Neurologist evaluation noted- did not think primary neurological process was involved. 1/16 CT Head: No acute intracerebral pathology; NH3 level 20.0 wnl Psych eval noted Avoid ativan, benadryl as much as possible for agitation 02/23 d/w psy --> can use haldol for agitation as long as we can maintain on telemetry. Encephalopathy resolved #. Afib RVR - resolved Patient with diagnosis of A. fib, not on anticoagulation as he easily bleeds per his and preferred not to be anticoagulated. Patient went into A. fib RVR 02/22 at 9:10 AM, received cardizem drip then amio --->converted to NSR on 02/24 at 7:20 AM. Cardiology consulted -->With history of chronic anemia and Elisa-Nguyen tear he has deemed a poor candidate for long-term anticoagulation. Rate controlled with metoprolol #. Hypertension, HLD, CHF Patient's blood pressure running high while inpatient initially, likely secondary to acute distress of COVID/intubation. Continue Norvasc added during this admission BP appear better controlled at this time Patient getting hemodialysis MWF, continue to monitor. #. ESRD on HD #. Electrolytes abnormality: Hyperkalemia/hyperphosphatemia Patient getting hemodialysis per nephrology, nephrology on board, appreciate recommendation. Nephrology holding RONI given lung nodule. Appreciate nephrology recs. Continue to monitor lytes/BMP. Continue fluid restriction 1.2L per nephro #. Postoperative hypothyroidism: Elevated TSH and low T4 on admission labs - Per prior attending: [facility] chart reviewed and it appears levothyroxine last adjusted before June 2020. Increased levothyroxine to 137.5 mcg daily Repeat TSH as outpatient in 6 weeks from admission #. Pulmonary nodule: 02/15/2021 CT chest: A spiculated 2.3 cm nodule in the right upper lobe, most likely malignant considering tobacco abuse history. Patient established with [facility] pulmonology and work-up in progress. Needs PET scan/potential endobronchial sampling of lymph nodes for staging. Patientneeds outpatient pulm follow-up. They have not been able to follow-up per his . Made aware the importance of pulm follow-up. Tylenol prn for left hip osteoarthritis. Lidocaine patch Full code Heparin subcu Disposition: Awaiting placement Admission and Anticipated Discharge Date Admission Date: February 13, 2021 Subjective Patient seen and examined. Reports of pain in left hip. CT scan done overnight showed osteoarthritis Denied any cough, chest pain, shortness of breath Denies any nausea, vomiting, abdominal pain or diarrhea Physical Exam Constitutional: + well hydrated; no acute distress Eyes: PERRL, conjunctivae normal, anicteric sclerae ENMT: external ear and nose normal, oropharynx normal Respiratory: normal respiratory effort; no respiratory distress Diminished breath sounds Cardiovascular: Rate/Rhythm: regular rate and regular rhythm S1 S2 Gastrointestinal (Abdomen): normal bowel sounds, soft, nontender, no hepatosplenomegaly Musculoskeletal: no cyanosis or clubbing, extremities motor strength 5/5 Pedal edema Neurologic: PERRL, EOMI, accommodation nl, no face palsy, no dysarthria Psychiatric: A+Ox3, euthymic affect Results & Data Results & Data ([facility]) Vital Signs (Past 12 Hours) Vital Signs Temp Pulse Pulse Resp BP BP Pulse Ox 02/28/21 08:10 64 02/28/21 07:26 36.7 C 68 19 130/62 98 02/28/21 04:00 36.5 C 72 20 117/60 91 02/28/21 00:00 74 Laboratory Results Abnormal lab results 02/27/21 02/28/21 02/28/21 Range/Units 20:29 07:28 11:46 POC Glucose 151 H 147 H 187 H (70-99) mg/dl
--- NOTE | 2021-02-28 12:20 | Pharmacy Report ---
Pharmacy Glycemic Short Note 2 - Date of Service February 28, 2021 - Glycemic Short BSG Results (Last 24 hours): 02/27/21 02/27/21 02/28/21 12:15 20:29 07:28 POC Glucose 144 H 151 H 147 H 02/28/21 11:46 POC Glucose 187 H OUTPATIENT ANTIDIABETIC REGIMEN: * n/a ASSESSMENT: 02/28: * Pt has only required 1 unit of Novolog per day the last 2 days. Fasting BSG was low on 02/26 (basal insulin D/C'd). Otherwise, BSG within goal range. This AM, BSGs 147-187. Pt did tolerate his entire breakfast this AM. * Given BSGs trending back up after discontinuation of basal, and BID Novolog dosing, plan to resume Novolog ACHS with correctional insulin only (CF 30). May require addition of carb coverage and/or tighter CF tomorrow. 02/25: * Sugars well controlled over last 48 hours, fasting has trended down and slightly below goal this morning. Patient did not receive any bolus insulin yesterday, will reduce basal by ~50% * Continue current novolog parameters, dexamethasone was discontinued after the . 02/22: * Blood sugars well controlled over last 48 hours, I discontinued HS basal last night to prevent AM fasting hypoglycemia, BSG 109mg/dl this AM, continue AM basal only. * Pt was in AFib last night; continues on Dexamethasone 6mg IV Daily 02/21: * Patient well controlled over the previous 24 hours, however,fasting BSG trending upward, received 10 units of lantus yesterday, Fasting continues to increase today, gave 15 units of lantus this morning and will set scale for PM. Patient is having dialysis today * Will continue current novolog parameters 02/19 * Patient overall well controlled for the past 72 hours. Will monitor fasting BSGs, if trending up consider adding basal insulin back. * Patient remains NPO, however is allowed applesauce with medications which is being covered with novolog. * Patient continues on IV dexamethasone 02/16: * Patient received total 33 units of insulin yesterday; 20 units basal + 13 units bolus. * BSG trended down to 56 mg/dl around midnight yesterday, most likely d/t late hemo-dialysis session. * Fasting BSG today = 93 mg/dl. Since patient was hypoglycemic last night and fasting lower today, basal insulin was discontinued this AM. * BSG trended up to 142 mg/dl before lunch today. No changes made to Novolog parameters. 02/14/21: * Mr Gustafson is a 70 y/o M with a PMH of ESRD on HD who presents with COVID-1 9. He was started on dexamethasone 6 mg IV daily yesterday. * Patient's BSG on admission was 161 mg/dL (prior to dexamethasone) then 275 mg/dL at night. * Morning fasting was 297 mg/dL on PRP and 245 mg/dL on POC. * Patient with hyperkalemia so given 10 units IV insulin with 1/2 amp of D50. * Start NPH 25 units (0.3 units/kg). Novolog weight-based stress of 2 for now as patient is insulin sensitive. PLAN FOR INPATIENT GLYCEMIC CONTROL: * Bolus insulin * NovoLog per scale ACHS or Q6hrs while NPO * Goal Range: Low 110 mg/dL - High 140 mg/dL * Correction Factor: 30 mg/dL/unit PLAN FOR DISCHARGE: * HbA1C is not accurate in an individual with ESRD on HD. * Recommend monitoring blood sugars as an outpatient and following up with provider to consider if glycemic treatment is needed, may be especially needed if patient discharged on steroids
[2021-02-28] MEDS: LIDOCAINE 5% 1 PATCH TD SCH (13:32)
[2021-02-28] MEDS ORDERED: INSULIN ASPART PER UNIT SC SCH (16:30)
[2021-02-28 17:22] LABS: BUN Creatinine Ratio 7.4 (10-20); Calcium 7.8 mg/dl (8.5-10.1); Creatinine Clr Calc Pharmacy 7.1 ml/min; Est GFR (African American) 6.4 ml/min; Est GFR (Non-African American) 5.6 ml/min; Potassium 5.7 mmol/L (3.5-5.1)
[2021-02-28 17:38] LABS: Hematocrit (blood only) 42.3 % (42-52); Hemoglobin 13.7 g/dL (14.0-18.0); Mean Corpuscular Hemoglobin 28.5 pg (25-34); Mean Corpuscular Hgb Conc 32.4 g/dL (32-36); Mean Corpuscular Volume 87.9 fL (80-100); Mean Platelet Volume 11.2 fL (7.4-10.4); Platelet Count 182 K/uL (130-400); RDW Coefficient of Variation 18.8 % (11.5-14.5); RDW Standard Deviation 59.4 fL (36.4-46.3); Red Blood Count 4.81 M/uL (4.7-6.1); White Blood Count 23.53 K/uL (4.8-10.8)
--- NOTE | 2021-02-28 18:10 | Nephrology Progress Note ---
Date of Service February 28, 2021 Assessment & Plan (1) ESRD (end stage renal disease) on dialysis: Plan: ESRD on Wednesday hemodialysis via AV fistula with chronic volume overload issues and now intermittent hyperkalemia as well as C-19 pneumonia. He had 3 L removed at dialysis on 02/20/2021. tolerated only 900 mL UF 02/24. Can give him Benadryl 25 mg p.o. 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 He is for outpatient lung nodule biopsy, now deferred due to his Covid status -We will continue fluid removal with dialysis (3) Fluid overload: Plan: Aggressive UF with dialysis as above, at least as aggressive as he will tolerate which is at times not much. volume status much improved since admissoin -continue 1.2 L fluid limit Admission and Anticipated Discharge Date Admission Date: February 13, 2021 Subjective seen on rounds this am 1000; no c/o; edema resolved; proud of having stopped smoking this admission and hopeful for txplt eval; ongoing cough Review of Systems Review of Systems: All systems reviewed & are unremarkable except as noted in Subjective Physical Exam Constitutional: well developed, well nourished and cooperative; no acute distress Eyes: EOM intact bilaterally ENMT: Ears: no external ear abnormality Nose: no external nose abnormality Mouth: + dry oral mucous membranes Neck: no nuchal rigidity Respiratory: normal respiratory effort, + cough and able to speak in complete sentences Auscultation: + diminished lung sounds Cardiovascular: Rate/Rhythm: regular rate and regular rhythm Extremities: + AV fistula (+t/b); no edema Gastrointestinal (Abdomen): Inspection/Auscultation: normal bowel sounds Percussion/Palpation: abdomen soft; abdomen nontender Musculoskeletal: Extremities: strength 5/5 throughout Skin: no rashes, warm and dry Neurologic: bobby, fluent speech, no tremor Psychiatric: Orientation: alert and oriented x 3 Affect: + anxious affect Results & Data ([facility]) Vital Signs (Past 12 Hours) Vital Signs Temp Pulse Pulse Resp BP BP Pulse Ox 02/28/21 15:56 36.7 C 67 18 100/51 L 98 02/28/21 11:53 36.5 C 57 L 16 100/46 L 98 02/28/21 08:10 64 02/28/21 07:26 36.7 C 68 19 130/62 98 Laboratory Results 02/28/21 16:21 02/28/21 16:21
[2021-02-28] MEDS ORDERED: DEXTROSE 50% 50 ML SYRINGE IV PRN (18:12)
[2021-02-28] MEDS ORDERED: DEXTROSE 50% 50 ML SYRINGE IV ONE (18:59)
[2021-02-28] MEDS ORDERED: INSULIN HUMAN REGULAR PER UNIT 5 UNITS in SYRINGE 4.95 ML IV ONE (19:00)
[2021-02-28] MEDS: ACETAMINOPHEN 325 MG TAB PO PRN (21:02)
[2021-02-28] MEDS: CYCLOBENZAPRINE HCL 10 MG TAB PO SCH (21:04)
[2021-03-01] MEDS: HEPARIN SOD 5,000 UNIT/0.5 ML VIAL SQ SCH ×4 (06:14→21:51)
[2021-03-01] MEDS: LEVOTHYROXINE SODIUM 125 MCG TABLET PO SCH (06:14)
[2021-03-01] MEDS: ACETAMINOPHEN 325 MG TAB PO PRN ×3 (06:17→21:51)
[2021-03-01] MEDS: HEPARIN SOD (PORCINE) 1000 UNIT/ML IV SCH ×3 (06:57→13:04)
[2021-03-01] MEDS ORDERED: HEPARIN SOD (PORCINE) 1000 UNIT/ML IV SCH (07:00)
[2021-03-01] MEDS ORDERED: SODIUM CHLORIDE 0.9% 1000ML 1,000 ML IV PRN (07:00)
[2021-03-01 07:46] LABS: BUN Creatinine Ratio 7.7 (10-20); Calcium 7.5 mg/dl (8.5-10.1); Creatinine Clr Calc Pharmacy 6.4 ml/min; Est GFR (African American) 5.7 ml/min; Est GFR (Non-African American) 4.9 ml/min; Potassium 4.9 mmol/L (3.5-5.1)
[2021-03-01] MEDS: INSULIN ASPART PER UNIT SC SCH ×4 (07:58→21:50)
[2021-03-01] MEDS: rOPINIRole HCL 0.25 MG TABLET PO SCH (10:03)
[2021-03-01] MEDS: SEVELAMER HCL 800 MG TABLET PO SCH ×3 (10:03→16:52)
[2021-03-01] MEDS: DOCUSATE SODIUM 100 MG CAP PO SCH ×2 (10:03→20:25)
[2021-03-01] MEDS: UMECLIDINIUM/VILANTEROL 62.5/25MCG 7 PUFFS/INHALER INH SCH (10:04)
[2021-03-01] MEDS: LIDOCAINE 5% 1 PATCH TD SCH (10:04)
[2021-03-01] MEDS: amLODIPine BESYLATE 5 MG TAB PO SCH (10:04)
[2021-03-01] MEDS: METOPROLOL TARTRATE 50 MG TAB PO SCH ×2 (10:04→20:26)
--- NOTE | 2021-03-01 10:47 | Hospitalist Progress Note ---
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 He is being managed for the following: #. COVID 19 Pneumonia #. Acute respiratory failure with hypoxia #. Likely superimposed bacterial infection Shortness of breath, cough and subjective fever at presentation, needed NC O2 in ER, Tested positive for COVID02/13/21 in ED. Admitting CXR: Moderate pulmonary edema, bilateral lower lung predominant opacities suggestive of pneumonia versus atelectasis versus alveolar edema. June 2019 echo: EF 55 to 60%, left ventricular systolic function normal. Patient febrile 02/16 - 02/17---> 02/16 sputum culture negative for growth, 02/16 blood culture negative for growth. Procalcitonin uptrending and elevated at 8.13 on 02/19 ---> then downtrended to 5.97 on 02/22 COVID-positive, s/p intubation 02/16/2021 for respiratory distress, extubated 02/18/2021 s/p dexa 02/14 - 02/23, unable to receive remdesivir secondary to renal function. Not a candidate for baricitinib or tocilizumab due to ESRD. s/p Rocephin 02/14 - 02/21 and s/p doxycycline 02/16 - 02/22. 02/19/2021 CXR [after extubation]: Persistent interstitial thickening and bilateral opacities suggestive of infectious process versus pulmonary edema Currently on room air. Patient can get repeat chest x-ray in 6-week upon discharge Patient also needs follow-up with pulmonology as an outpatient for his lung nodule. #. Acute encephalopathy Multifactorial, ICU status, recent intubation, COVID, hemodialysis status, hospital stay Neurologist evaluation noted- did not think primary neurological process was involved. 1/16 CT Head: No acute intracerebral pathology; NH3 level 20.0 wnl Psych eval noted Avoid ativan, benadryl as much as possible for agitation 02/23 d/w psy --> can use haldol for agitation as long as we can maintain on telemetry. Encephalopathy resolved #. Afib RVR - resolved Patient with diagnosis of A. fib, not on anticoagulation as he easily bleeds per his and preferred not to be anticoagulated. Patient went into A. fib RVR 02/22 at 9:10 AM, received cardizem drip then amio --->converted to NSR on 02/24 at 7:20 AM. Cardiology consulted -->With history of chronic anemia and Elisa-Nguyen tear he has deemed a poor candidate for long-term anticoagulation. Rate controlled with metoprolol #. Hypertension, HLD, CHF Patient's blood pressure running high while inpatient initially, likely secondary to acute distress of COVID/intubation. Continue Norvasc added during this admission BP appear better controlled at this time Patient getting hemodialysis MWF, continue to monitor. #. ESRD on HD #. Electrolytes abnormality: Hyperkalemia/hyperphosphatemia Patient getting hemodialysis per nephrology, nephrology on board, appreciate recommendation. Nephrology holding RONI given lung nodule. Appreciate nephrology recs. Continue to monitor lytes/BMP. Continue fluid restriction 1.2L per nephro #. Postoperative hypothyroidism: Elevated TSH and low T4 on admission labs - Per prior attending: Epic chart reviewed and it appears levothyroxine last adjusted before June 2020. Increased levothyroxine to 137.5 mcg daily Repeat TSH as outpatient in 6 weeks from admission #. Pulmonary nodule: 02/15/2021 CT chest: A spiculated 2.3 cm nodule in the right upper lobe, most likely malignant considering tobacco abuse history. Patient established with [facility] pulmonology and work-up in progress. Needs PET scan/potential endobronchial sampling of lymph nodes for staging. Patientneeds outpatient pulm follow-up. They have not been able to follow-up per his . Made aware the importance of pulm follow-up. Full code Heparin subcu Disposition: Awaiting placement Admission and Anticipated Discharge Date Admission Date: February 13, 2021 Subjective Patient seen and examined. Reports of pain in left hip is controlled Denied any cough, chest pain, shortness of breath Denies any nausea, vomiting, abdominal pain or diarrhea Currently getting HD Physical Exam Constitutional: + well hydrated; no acute distress Eyes: PERRL, conjunctivae normal, anicteric sclerae ENMT: external ear and nose normal, oropharynx normal Respiratory: normal respiratory effort; no respiratory distress Diminshed breath sounds. On room air Cardiovascular: Rate/Rhythm: regular rate and regular rhythm S1 S2 Gastrointestinal (Abdomen): normal bowel sounds, soft, nontender, no hepatosplenomegaly Musculoskeletal: no cyanosis or clubbing, extremities motor strength 5/5 Neurologic: PERRL, EOMI, accommodation nl, no face palsy, no dysarthria Psychiatric: A+Ox3, euthymic affect Results & Data Results & Data ([facility]) Vital Signs (Past 12 Hours) Vital Signs Temp Pulse Pulse Pulse Resp BP BP 03/01/21 10:20 72 96/47 L 03/01/21 10:00 67 106/52 L 03/01/21 09:45 36.8 C 72 03/01/21 07:41 36.8 C 66 14 03/01/21 03:17 36.7 C 66 20 118/54 L 03/01/21 00:00 60 02/28/21 23:16 36.6 C 69 20 144/63 H BP Pulse Ox 03/01/21 10:20 03/01/21 10:00 03/01/21 09:45 03/01/21 07:41 117/56 L 98 03/01/21 03:17 95 03/01/21 00:00 02/28/21 23:16 98 Laboratory Results Abnormal lab results 02/28/21 02/28/21 02/28/21 Range/Units 16:21 16:21 16:46 WBC 23.53 H (4.8-10.8) K/uL Hgb 13.7 L (14.0-18.0) g/dL RDW Std Deviation 59.4 H (36.4-46.3) fL RDW Coeff of Shaylee 18.8 H (11.5-14.5) % MPV 11.2 H (7.4-10.4) fL Sodium 132 L (136-145) mmol/L Potassium 5.7 H (3.5-5.1) mmol/L Chloride 95 L (98-107) mmol/L Carbon Dioxide (21-32) mmol/L Anion Gap 16 H (3-11) BUN 64 H D (6-23) mg/dl Creatinine 8.64 H* D (0.6-1.4) mg/dl BUN/Creatinine Ratio 7.4 L (10-20) Glucose 167 H (70-99(Fasting)) mg/dl POC Glucose 148 H (70-99) mg/dl Calcium 7.8 L (8.5-10.1) mg/dl 02/28/21 02/28/21 03/01/21 Range/Units 19:20 20:16 06:40 WBC (4.8-10.8) K/uL Hgb (14.0-18.0) g/dL RDW Std Deviation (36.4-46.3) fL RDW Coeff of Shaylee (11.5-14.5) % MPV (7.4-10.4) fL Sodium 134 L (136-145) mmol/L Potassium (3.5-5.1) mmol/L Chloride (98-107) mmol/L Carbon Dioxide 20 L (21-32) mmol/L Anion Gap 14 H (3-11) BUN 74 H (6-23) mg/dl Creatinine 9.60 H* D (0.6-1.4) mg/dl BUN/Creatinine Ratio 7.7 L (10-20) Glucose 180 H (70-99(Fasting)) mg/dl POC Glucose 151 H 137 H (70-99) mg/dl Calcium 7.5 L (8.5-10.1) mg/dl 03/01/21 Range/Units 07:39 WBC (4.8-10.8) K/uL Hgb (14.0-18.0) g/dL RDW Std Deviation (36.4-46.3) fL RDW Coeff of Shaylee (11.5-14.5) % MPV (7.4-10.4) fL Sodium (136-145) mmol/L Potassium (3.5-5.1) mmol/L Chloride (98-107) mmol/L Carbon Dioxide (21-32) mmol/L Anion Gap (3-11) BUN (6-23) mg/dl Creatinine (0.6-1.4) mg/dl BUN/Creatinine Ratio (10-20) Glucose (70-99(Fasting)) mg/dl POC Glucose 170 H (70-99) mg/dl Calcium (8.5-10.1) mg/dl
--- NOTE | 2021-03-01 11:27 | Dialysis Progress Note ---
Date of Service March 01, 2021 Assessment & Plan Admission and Anticipated Discharge Date Admission Date: February 13, 2021 Subjective Assessment & Plan (1) ESRD (end stage renal disease) on dialysis: Plan: ESRD on Wednesday schedule asoutpt hemodialysis via AV fistula with chronic volume overload issues/Non adherence and now intermittent hyperkalemia as well as C-19 pneumonia. -Holding RONI given lung nodule Daily basic metabolic panel So far tolerating fine. continue As ordered. No major electrolyte issues today (2) Pneumonia due to 2019-nCoV: Plan: Complicated by COPD exacerbation/volume overload, with these latter problems per pulmonary more likely primary in his respiratory distress. He is for outpatient lung nodule biopsy, now deferred due to his Covid status -We will continue fluid removal with dialysis Also vol overload much better Subjective seen during dialysis at 1120AM. Plan for d/c to rehab; breathing better but still not very good. Review of Systems Review of Systems: All systems reviewed & are unremarkable except as noted in Subjective Physical Exam Constitutional: well developed, well nourished and cooperative; no acute distress Eyes: EOM intact bilaterally ENMT: Ears: no external ear abnormality Nose: no external nose abnormality Mouth: + dry oral mucous membranes Neck: no nuchal rigidity Respiratory: normal respiratory effort, + cough and able to speak in complete sentences Auscultation: + diminished lung sounds, + rhonchi and + bronchovesicular breath sounds Cardiovascular: Rate/Rhythm: regular rate and regular rhythm Extremities: + edema (1+ pedal) and + AV fistula (+t/b) Gastrointestinal (Abdomen): Inspection/Auscultation: normal bowel sounds Percussion/Palpation: abdomen soft; abdomen nontender Musculoskeletal: Extremities: strength 5/5 throughout Skin: no rashes, warm and dry Neurologic: bobby, fluent speech, no tremor Psychiatric: Orientation: alert and oriented x 3 Affect: + anxious affect Results & Data ([facility]) Vital Signs (Past 12 Hours) Vital Signs Temp Pulse Pulse Pulse Resp BP BP 03/01/21 11:24 74 112/65 03/01/21 10:20 72 96/47 L 03/01/21 10:00 67 106/52 L 03/01/21 09:45 36.8 C 72 03/01/21 07:41 36.8 C 66 14 03/01/21 03:17 36.7 C 66 20 118/54 L 03/01/21 00:00 60 BP Pulse Ox 03/01/21 11:24 03/01/21 10:20 03/01/21 10:00 03/01/21 09:45 03/01/21 07:41 117/56 L 98 03/01/21 03:17 95 03/01/21 00:00
[2021-03-01] MEDS: traMADol HCL 50 MG TABLET PO PRN ×2 (14:24→17:37)
[2021-03-01] MEDS: diphenhydrAMINE Capsule 25 MG CAP PO PRN (16:47)
[2021-03-01] MEDS: CYCLOBENZAPRINE HCL 10 MG TAB PO SCH (20:25)
[2021-03-02] MEDS: ACETAMINOPHEN 325 MG TAB PO PRN (03:00)
[2021-03-02] MEDS: HEPARIN SOD 5,000 UNIT/0.5 ML VIAL SQ SCH ×3 (06:26→21:08)
[2021-03-02] MEDS: LEVOTHYROXINE SODIUM 125 MCG TABLET PO SCH (06:26)
[2021-03-02] MEDS: LIDOCAINE 5% 1 PATCH TD SCH (08:03)
[2021-03-02] MEDS: amLODIPine BESYLATE 5 MG TAB PO SCH (08:03)
[2021-03-02] MEDS: DOCUSATE SODIUM 100 MG CAP PO SCH ×2 (08:03→21:06)
[2021-03-02] MEDS: SEVELAMER HCL 800 MG TABLET PO SCH ×3 (08:04→17:36)
[2021-03-02] MEDS: METOPROLOL TARTRATE 50 MG TAB PO SCH ×2 (08:04→21:07)
[2021-03-02] MEDS: rOPINIRole HCL 0.25 MG TABLET PO SCH (08:05)
[2021-03-02] MEDS: UMECLIDINIUM/VILANTEROL 62.5/25MCG 7 PUFFS/INHALER INH SCH (08:06)
[2021-03-02] MEDS: INSULIN ASPART PER UNIT SC SCH ×4 (10:04→21:07)
--- NOTE | 2021-03-02 11:57 | Hospitalist Progress Note ---
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 He is being managed for the following: #. COVID 19 Pneumonia #. Acute respiratory failure with hypoxia #. Likely superimposed bacterial infection Shortness of breath, cough and subjective fever at presentation, needed NC O2 in ER, Tested positive for COVID02/13/21 in ED. Admitting CXR: Moderate pulmonary edema, bilateral lower lung predominant opacities suggestive of pneumonia versus atelectasis versus alveolar edema. June 2019 echo: EF 55 to 60%, left ventricular systolic function normal. Patient febrile 02/16 - 02/17---> 02/16 sputum culture negative for growth, 02/16 blood culture negative for growth. Procalcitonin uptrending and elevated at 8.13 on 02/19 ---> then downtrended to 5.97 on 02/22 COVID-positive, s/p intubation 02/16/2021 for respiratory distress, extubated 02/18/2021 s/p dexa 02/14 - 02/23, unable to receive remdesivir secondary to renal function. Not a candidate for baricitinib or tocilizumab due to ESRD. s/p Rocephin 02/14 - 02/21 and s/p doxycycline 02/16 - 02/22. 02/19/2021 CXR [after extubation]: Persistent interstitial thickening and bilateral opacities suggestive of infectious process versus pulmonary edema Currently on room air. Patient can get repeat chest x-ray in 6-week upon discharge Patient also needs follow-up with pulmonology as an outpatient for his lung nodule. #. Acute encephalopathy Multifactorial, ICU status, recent intubation, COVID, hemodialysis status, hospital stay Neurologist evaluation noted- did not think primary neurological process was involved. 1/16 CT Head: No acute intracerebral pathology; NH3 level 20.0 wnl Psych eval noted Avoid ativan, benadryl as much as possible for agitation 02/23 d/w psy --> can use haldol for agitation as long as we can maintain on telemetry. Encephalopathy resolved #. Afib RVR - resolved Patient with diagnosis of A. fib, not on anticoagulation as he easily bleeds per his and preferred not to be anticoagulated. Patient went into A. fib RVR 02/22 at 9:10 AM, received cardizem drip then amio --->converted to NSR on 02/24 at 7:20 AM. Cardiology consulted -->With history of chronic anemia and Elisa-Nguyen tear he has deemed a poor candidate for long-term anticoagulation. #. Hypertension, HLD, CHF Patient's blood pressure running high while inpatient initially, likely secondary to acute distress of COVID/intubation. Continue Norvasc added during this admission BP appear better controlled at this time Patient getting hemodialysis MWF, continue to monitor. #. ESRD on HD #. Electrolytes abnormality: Hyperkalemia/hyperphosphatemia Patient getting hemodialysis per nephrology, nephrology on board, appreciate recommendation. Nephrology holding RONI given lung nodule. Appreciate nephrology recs. Continue to monitor lytes/BMP. Continue fluid restriction 1.2L per nephro #. Postoperative hypothyroidism: Elevated TSH and low T4 on admission labs - Per prior attending: [facility] chart reviewed and it appears levothyroxine last adjusted before June 2020. Increased levothyroxine to 137.5 mcg daily Repeat TSH as outpatient in 6 weeks from admission #. Pulmonary nodule: 02/15/2021 CT chest: A spiculated 2.3 cm nodule in the right upper lobe, most likely malignant considering tobacco abuse history. Patient established with [facility] pulmonology and work-up in progress. Needs PET scan/potential endobronchial sampling of lymph nodes for staging. Patientneeds outpatient pulm follow-up. They have not been able to follow-up per his . Made aware the importance of pulm follow-up. Full code Heparin subcu Disposition: Awaiting placement. CM working on this Admission and Anticipated Discharge Date Admission Date: February 13, 2021 Subjective Patient seen and examined. Denied any cough, chest pain, shortness of breath Denies any nausea, vomiting, abdominal pain or diarrhea Report left hip pain is controlled Physical Exam Constitutional: + well hydrated; no acute distress Eyes: PERRL, conjunctivae normal, anicteric sclerae ENMT: external ear and nose normal, oropharynx normal Respiratory: normal respiratory effort; no respiratory distress Diminished breath sodium Cardiovascular: Rate/Rhythm: regular rate and regular rhythm S1 S2 Gastrointestinal (Abdomen): normal bowel sounds, soft, nontender, no hepatosplenomegaly Musculoskeletal: no cyanosis or clubbing, extremities motor strength 5/5 Neurologic: PERRL, EOMI, accommodation nl, no face palsy, no dysarthria Psychiatric: A+Ox3, euthymic affect Results & Data Results & Data ([facility]) Vital Signs (Past 12 Hours) Vital Signs Temp Pulse Pulse Pulse Resp BP Pulse Ox 03/02/21 11:00 36.5 C 64 16 107/49 L 98 03/02/21 07:33 36.8 C 72 16 131/45 L 99 03/02/21 02:30 36.8 C 70 18 116/55 L 99 03/02/21 00:00 70 Laboratory Results Abnormal lab results 03/01/21 03/01/21 03/02/21 Range/Units 16:48 20:49 07:26 POC Glucose 100 H 169 H 115 H (70-99) mg/dl 03/02/21 Range/Units 12:03 POC Glucose 177 H (70-99) mg/dl
[2021-03-02] MEDS: CYCLOBENZAPRINE HCL 10 MG TAB PO SCH (21:06)
[2021-03-03] MEDS: LEVOTHYROXINE SODIUM 125 MCG TABLET PO SCH (05:46)
[2021-03-03] MEDS: HEPARIN SOD 5,000 UNIT/0.5 ML VIAL SQ SCH ×3 (05:47→21:59)
[2021-03-03] MEDS: SEVELAMER HCL 800 MG TABLET PO SCH ×3 (07:44→18:13)
[2021-03-03 08:30] LABS: Calcium 8.3 mg/dl (8.5-10.1); Creatinine Clr Calc Pharmacy 7.3 ml/min; Est GFR (African American) 6.7 ml/min; Est GFR (Non-African American) 5.8 ml/min; Potassium 5.4 mmol/L (3.5-5.1)
[2021-03-03] MEDS: INSULIN ASPART PER UNIT SC SCH ×4 (08:47→20:34)
[2021-03-03] MEDS: LIDOCAINE 5% 1 PATCH TD SCH (08:56)
[2021-03-03] MEDS: METOPROLOL TARTRATE 50 MG TAB PO SCH ×2 (08:56→20:34)
[2021-03-03] MEDS: amLODIPine BESYLATE 5 MG TAB PO SCH (08:56)
[2021-03-03] MEDS: DOCUSATE SODIUM 100 MG CAP PO SCH ×2 (08:56→20:34)
[2021-03-03] MEDS: rOPINIRole HCL 0.25 MG TABLET PO SCH (08:56)
[2021-03-03] MEDS: UMECLIDINIUM/VILANTEROL 62.5/25MCG 7 PUFFS/INHALER INH SCH (08:57)
--- NOTE | 2021-03-03 13:19 | Hospitalist Progress Note ---
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 He is being managed for the following: #. COVID 19 Pneumonia #. Acute respiratory failure with hypoxia #. Likely superimposed bacterial infection Shortness of breath, cough and subjective fever at presentation, needed NC O2 in ER, Tested positive for COVID02/13/21 in ED. Admitting CXR: Moderate pulmonary edema, bilateral lower lung predominant opacities suggestive of pneumonia versus atelectasis versus alveolar edema. June 2019 echo: EF 55 to 60%, left ventricular systolic function normal. Patient febrile 02/16 - 02/17---> 02/16 sputum culture negative for growth, 02/16 blood culture negative for growth. Procalcitonin uptrending and elevated at 8.13 on 02/19 ---> then downtrended to 5.97 on 02/22 COVID-positive, s/p intubation 02/16/2021 for respiratory distress, extubated 02/18/2021 s/p dexa 02/14 - 02/23, unable to receive remdesivir secondary to renal function. Not a candidate for baricitinib or tocilizumab due to ESRD. s/p Rocephin 02/14 - 02/21 and s/p doxycycline 02/16 - 02/22. 02/19/2021 CXR [after extubation]: Persistent interstitial thickening and bilateral opacities suggestive of infectious process versus pulmonary edema Currently on room air. Patient can get repeat chest x-ray in 6-week upon discharge Patient also needs follow-up with pulmonology as an outpatient for his lung nodule. #. Acute encephalopathy Multifactorial, ICU status, recent intubation, COVID, hemodialysis status, hospital stay Neurologist evaluation noted- did not think primary neurological process was involved. 1/16 CT Head: No acute intracerebral pathology; NH3 level 20.0 wnl Psych eval noted Avoid ativan, benadryl as much as possible for agitation 02/23 d/w psy --> can use haldol for agitation as long as we can maintain on telemetry. Encephalopathy resolved #. Afib RVR - resolved Patient with diagnosis of A. fib, not on anticoagulation as he easily bleeds per his and preferred not to be anticoagulated. Patient went into A. fib RVR 02/22 at 9:10 AM, received cardizem drip then amio --->converted to NSR on 02/24 at 7:20 AM. Cardiology consulted -->With history of chronic anemia and Elisa-Nguyen tear he has deemed a poor candidate for long-term anticoagulation. #. Hypertension, HLD, CHF Patient's blood pressure running high while inpatient initially, likely secondary to acute distress of COVID/intubation. Continue Norvasc added during this admission BP appear better controlled at this time Patient getting hemodialysis MWF, continue to monitor. #. ESRD on HD #. Electrolytes abnormality: Hyperkalemia/hyperphosphatemia Patient getting hemodialysis per nephrology, nephrology on board, appreciate recommendation. Nephrology holding RONI given lung nodule. Appreciate nephrology recs. Continue to monitor lytes/BMP. Continue fluid restriction 1.2L per nephro #. Postoperative hypothyroidism: Elevated TSH and low T4 on admission labs - Per prior attending: [facility] chart reviewed and it appears levothyroxine last adjusted before June 2020. Increased levothyroxine to 137.5 mcg daily Repeat TSH as outpatient in 6 weeks from admission #. Pulmonary nodule: 02/15/2021 CT chest: A spiculated 2.3 cm nodule in the right upper lobe, most likely malignant considering tobacco abuse history. Patient established with [facility] pulmonology and work-up in progress. Needs PET scan/potential endobronchial sampling of lymph nodes for staging. Patientneeds outpatient pulm follow-up. They have not been able to follow-up per his . Made aware the importance of pulm follow-up. Full code Heparin subcu Disposition: Awaiting placement. Per RN, patient requires assistance with ambulation or getting out of bed Notified by CM that peer to peer is needed. Called insurance number. Did peer to peer. Rehab will be approved Admission and Anticipated Discharge Date Admission Date: February 13, 2021 Subjective Patient seen and examined. Denied any cough, chest pain, shortness of breath Denies any nausea, vomiting, abdominal pain or diarrhea Report left hip pain is controlled RN reports patient requires assist with ambulation/getting out of bed Physical Exam Constitutional: + well hydrated; no acute distress Eyes: PERRL, conjunctivae normal, anicteric sclerae ENMT: external ear and nose normal, oropharynx normal Respiratory: normal respiratory effort, lungs clear to auscultation Cardiovascular: Rate/Rhythm: regular rate and regular rhythm S1 S2 Gastrointestinal (Abdomen): normal bowel sounds, soft, nontender, no hepatosplenomegaly Musculoskeletal: no cyanosis or clubbing, extremities motor strength 5/5 Neurologic: PERRL, EOMI, accommodation nl, no face palsy, no dysarthria Psychiatric: A+Ox3, euthymic affect Results & Data Results & Data ([facility]) Vital Signs (Past 12 Hours) Vital Signs Temp Pulse Pulse Pulse Resp BP Pulse Ox 03/03/21 11:56 71 03/03/21 11:39 36.8 C 64 18 133/56 L 98 03/03/21 07:40 36.8 C 72 17 147/44 H 98 03/03/21 02:26 36.6 C 68 16 145/56 H 96 Laboratory Results Abnormal lab results 03/02/21 03/02/21 03/03/21 Range/Units 16:36 20:44 05:30 Sodium 135 L (136-145) mmol/L Potassium 5.4 H (3.5-5.1) mmol/L Carbon Dioxide 18 L (21-32) mmol/L Anion Gap 17 H (3-11) BUN 50 H D (6-23) mg/dl Creatinine 8.34 H* D (0.6-1.4) mg/dl BUN/Creatinine Ratio 6.0 L (10-20) Glucose 104 H (70-99(Fasting)) mg/dl POC Glucose 129 H 223 H (70-99) mg/dl Calcium 8.3 L (8.5-10.1) mg/dl 03/03/21 03/03/21 Range/Units 07:45 11:38 Sodium (136-145) mmol/L Potassium (3.5-5.1) mmol/L Carbon Dioxide (21-32) mmol/L Anion Gap (3-11) BUN (6-23) mg/dl Creatinine (0.6-1.4) mg/dl BUN/Creatinine Ratio (10-20) Glucose (70-99(Fasting)) mg/dl POC Glucose 157 H 169 H (70-99) mg/dl Calcium (8.5-10.1) mg/dl
[2021-03-03] MEDS: CYCLOBENZAPRINE HCL 10 MG TAB PO SCH (20:34)
[2021-03-04] MEDS: LEVOTHYROXINE SODIUM 125 MCG TABLET PO SCH (05:38)
[2021-03-04] MEDS: HEPARIN SOD 5,000 UNIT/0.5 ML VIAL SQ SCH ×2 (05:39→12:09)
[2021-03-04 06:30] LABS: BUN Creatinine Ratio 6.3 (10-20); Calcium 8.7 mg/dl (8.5-10.1); Creatinine Clr Calc Pharmacy 6.5 ml/min; Est GFR (African American) 5.8 ml/min
[2021-03-04] MEDS ORDERED: SODIUM CHLORIDE 0.9% 1000ML 1,000 ML IV PRN (07:00)
[2021-03-04] MEDS ORDERED: HEPARIN SOD (PORCINE) 1000 UNIT/ML IV ONE (07:00)
[2021-03-04 08:18] VITALS: O2SAT 97
[2021-03-04] MEDS: INSULIN ASPART PER UNIT SC SCH ×2 (09:21→12:08)
[2021-03-04] MEDS: amLODIPine BESYLATE 5 MG TAB PO SCH (09:22)
[2021-03-04] MEDS: SEVELAMER HCL 800 MG TABLET PO SCH ×2 (09:22→12:09)
[2021-03-04] MEDS: rOPINIRole HCL 0.25 MG TABLET PO SCH (09:23)
[2021-03-04] MEDS: LIDOCAINE 5% 1 PATCH TD SCH (09:23)
[2021-03-04] MEDS: DOCUSATE SODIUM 100 MG CAP PO SCH (09:23)
[2021-03-04] MEDS: UMECLIDINIUM/VILANTEROL 62.5/25MCG 7 PUFFS/INHALER INH SCH (09:24)
[2021-03-04] MEDS: METOPROLOL TARTRATE 50 MG TAB PO SCH (09:24)
--- NOTE | 2021-03-04 10:25 | Dialysis Progress Note ---
Date of Service March 04, 2021 Assessment & Plan Admission and Anticipated Discharge Date Admission Date: February 13, 2021 Subjective Assessment & Plan (1) ESRD (end stage renal disease) on dialysis: Plan: ESRD on Wednesday schedule as outpt hemodialysis via AV fistula with chronic volume overload issues/Non adherence and now intermittent hyperkalemia as well as C-19 pneumonia. -Holding RONI given lung nodule Daily basic metabolic panel Dialysis Currently TTS here and in Rehab. So far tolerating fine. continue As ordered. High K again so might need more than 3hr on Tuesdays (2) Pneumonia due to 2019-nCoV: Plan: Complicated by COPD exacerbation/volume overload, with these latter problems per pulmonary more likely primary in his respiratory distress. He is for outpatient lung nodule biopsy, now deferred due to his Covid status -We will continue fluid removal with dialysis Also vol overload much better Subjective seen during dialysis at 1120AM. Plan for d/c to rehab; breathing better but still not very good. Review of Systems Review of Systems: All systems reviewed & are unremarkable except as noted in Subjective Physical Exam Constitutional: well developed, well nourished and cooperative; no acute distress Eyes: EOM intact bilaterally ENMT: Ears: no external ear abnormality Nose: no external nose abnormality Mouth: + dry oral mucous membranes Neck: no nuchal rigidity Respiratory: normal respiratory effort, + cough and able to speak in complete sentences Auscultation: + diminished lung sounds, + rhonchi and + bronchovesicular breath sounds Cardiovascular: Rate/Rhythm: regular rate and regular rhythm Extremities: + edema (1+ pedal) and + AV fistula (+t/b) Gastrointestinal (Abdomen): Inspection/Auscultation: normal bowel sounds Percussion/Palpation: abdomen soft; abdomen nontender Musculoskeletal: Extremities: strength 5/5 throughout Skin: no rashes, warm and dry Neurologic: bobby, fluent speech, no tremor Psychiatric: Orientation: alert and oriented x 3 Affect: + anxious affect Results & Data ([facility]) Vital Signs (Past 12 Hours) Vital Signs Temp Pulse Pulse Pulse Resp BP BP 03/04/21 08:17 37.0 C 74 18 149/72 H 03/04/21 08:00 70 03/04/21 03:29 36.5 C 68 18 127/56 L 03/03/21 23:32 36.5 C 70 16 130/69 130/69 03/03/21 23:00 71 Pulse Ox 03/04/21 08:17 97 03/04/21 08:00 03/04/21 03:29 94 03/03/21 23:32 95 03/03/21 23:00
--- NOTE | 2021-03-04 11:28 | Discharge Summary ---
Date of Service March 04, 2021 Admission HPI Per Admitting Provider This is a 70-year-old male with past medical history significant for type 2 diabetes, end-stage renal disease, on hemodialysis; history of hyperthyroidism, history of hyperlipidemia, history of Graves' disease, postoperative hypothyroidism, COPD, hypertension, mild aortic stenosis, atrial fibrillation, renal osteodystrophy, generalized osteoarthritis, gouty arthropathy, chronic tobacco use, who was recently in the hospital for right leg cellulitis, fluid overload. Treated with Rocephin and discharged on Keflex. Comes because of shortness of breath, says since last night 11:00 p.m. is getting more short of breath and is not getting better, so that is why they came to the hospital, has some mild cough. Currently, resting comfortably and hemodynamically stable. Denies any headache, no nausea, no vomiting, no abdominal pain, no diarrhea, no chest pain. Mild temperature spike in the ER. Appetite is good. He is feeling hungry, he wants to eat. No runny nose, no sore throat, no earaches, no blurred visions. Normal bowel and bladder movements. The patient is COVID positive in the ER. The patient, recently last time tested him in the hospital, he was negative on 02/01/2021 Admission Exam Per Admitting Provider GENERAL: The patient is of moderate build, not in acute distress. VITAL SIGNS: Temperature 37.9, pulse 102, respiratory rate 18, blood pressure 156/92, oxygen 97% on room air. HEENT: Pupils equal, round, and reactive to light. Oral mucosa moist. NECK: No JVD. No neck masses. CARDIOVASCULAR: S1 and S2 heard. Tachycardia. No murmurs. RESPIRATORY SYSTEM: Normal AP diameter. No accessory muscle use. No wheezing, no crackles. ABDOMEN: Soft, bowel sounds present, nontender, no distention. CENTRAL NERVOUS SYSTEM: Cranial nerves II-XII grossly intact, nonfocal. EXTREMITIES: Mild pedal edema present, no erythema seen. Principal Diagnosis Acute respiratory failure with hypoxia COVID 19 pneumonia Acute metabolic encephalopathy Paroxysmal Atrial fibrillation Hypertension Discharge Exam Constitutional + well hydrated; no acute distress Eyes PERRL, conjunctivae normal, anicteric sclerae ENMT external ear and nose normal, oropharynx normal Respiratory normal respiratory effort, lungs clear to auscultation Cardiovascular Rate/Rhythm: regular rate and regular rhythm S1 S2 Gastrointestinal (Abdomen) normal bowel sounds, soft, nontender, no hepatosplenomegaly Musculoskeletal no cyanosis or clubbing, extremities motor strength 5/5 Neurologic PERRL, EOMI, accommodation nl, no face palsy, no dysarthria Psychiatric A+Ox3, euthymic affect Discharge Data Allergies Allergy/AdvReac Type Severity Reaction Status Date / Time No Known Allergies Allergy NONE Verified 02/13/21 17:53 Consultations 02/13/21 20:12 ED Decision to Admit Stat 02/14/21 08:00 Consult Nephrology Routine 02/16/21 03:31 Consult Information Technology Auditor Routine 02/21/21 17:42 Consult Neurology Routine 02/22/21 10:04 Consult Cardiology Routine 02/23/21 13:17 Consult Psychiatry Routine Ordered Studies 02/15/21 17:58 CT angio chest PE protocol Stat 02/15/21 18:05 CT head/brain wo con Urgent 02/20/21 US venous doppler LE BI Urgent 02/23/21 11:46 CT head/brain wo con Stat 02/27/21 22:27 CT hip LT wo con Urgent Hospital Course (1) ESRD (end stage renal disease) on dialysis: (2) Respiratory failure: (3) Pneumonia due to 2019-nCoV: (4) Acute encephalopathy: 70-year-old male with PMH of T2DM, ESRD on HD, SLE, Graves' disease, hyperthyroidism followed by postoperative hypothyroidism, COPD, HTN, mild AAS, A. 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 #. COVID 19 Pneumonia #. Acute respiratory failure with hypoxia #. Likely superimposed bacterial infection Shortness of breath, cough and subjective fever at presentation, needed NC O2 in ER, Tested positive for COVID02/13/21 in ED. Admitting CXR: Moderate pulmonary edema, bilateral lower lung predominant opacities suggestive of pneumonia versus atelectasis versus alveolar edema. June 2019 echo: EF 55 to 60%, left ventricular systolic function normal. Patient febrile Blood and sputum cultures negative Procalcitonin trended up and elevated at 8.13 on 02/19/21---> then downtrended to 5.97 (02/22/21) with treatment Was intubated on 02/16/2021 for respiratory distress, extubated 02/18/2021 s/p dexamethasone Unable to receive remdesivir secondary to renal function. Not a candidate for baricitinib or tocilizumab due to ESRD. Also received antibiotics for secondary bacterial pneumonia Successfully weaned off oxygen. Currently on room air Patient can get repeat chest x-ray in 6-week upon discharge Patient also needs follow-up with pulmonology as an outpatient for his lung nodule. #. Acute encephalopathy After extubation Multifactorial, ICU status, recent intubation, COVID, hemodialysis status, prolonged hospital stay Neurologist evaluation and did not think primary neurological process was involved. 02/23 CT Head: No acute intracerebral pathology Encephalopathy resolved #. Afib RVR - resolved Patient with diagnosis of A. fib, not on anticoagulation as he easily bleeds per his and preferred not to be anticoagulated. Patient went into A. fib RVR 02/22/21 at 9:10 AM, received cardizem drip then amio --->converted to NSR on 02/24/21 at 7:20 AM. Cardiology consulted -->With history of chronic anemia and Elisa-Nguyen tear, he has deemed a poor candidate for long-term anticoagulation. Home metoprolol tartarate 100mg daily changed to 50mg bid #. Hypertension, HLD, CHF Patient's blood pressure running high while inpatient initially, likely secondary to acute distress of COVID/intubation. Continue Norvasc added during this admission BP appear better controlled at this time Patient getting hemodialysis MWF, continue to monitor. #. ESRD on HD #. Electrolytes abnormality: Hyperkalemia/hyperphosphatemia Patient getting hemodialysis Low potassium diet advised Continue fluid restriction 1.2L per nephro Follow up Nephrology outaptient #. Postoperative hypothyroidism: Elevated TSH and low T4 on admission labs - Per prior attending: [facility] chart reviewed and it appears levothyroxine last adjusted before June 2020. Repeat TSH as outpatient in 6 weeks from admission and adjust med as needed #. Pulmonary nodule: 02/15/2021 CT chest: A spiculated 2.3 cm nodule in the right upper lobe, most likely malignant considering tobacco abuse history. Patient established with [facility] pulmonology and work-up in progress. Needs PET scan/potential endobronchial sampling of lymph nodes for staging. Patientneeds outpatient pulm follow-up. They have not been able to follow-up per his . Made aware the importance of pulm follow-up. Total Time Total Time Spent Total Time Spent (In Minutes): 50 Total Time Includes: Examination of the Patient, Discharge Planning, Medication Reconciliation and Communication With Other Providers Discharge Plan Discharge Items Patient Disposition: Transfer Inpatient Rehab Fac Reason For Visit: Shortness of breath Discharge Diagnosis: Acute respiratory failure with hypoxia COVID 19 pneumonia Acute metabolic encephalopathy Paroxysmal Atrial fibrillation Hypertension Activity: As commented below Activity Comment: Per physical therapist recommendations Non-emergency contact: Primary Care Provider and Complaint Clerk Call non-emergency contact if: you have any medication questions and your symptoms worsen Follow-up/Referrals: Sabino Murphy MD [Primary Care Provider] - Diet: Carb Consistent or DM2, Heart Healthy and Low Potassium (2gm) Fluids: 1200ml (5 cups) Addtl Attending Provider Instructions: Mr Gustafson. You came to the hospital with shortness of breath. You were evaluated and found to have COVID 19 pneumonia and fluid in your lungs. You were started on treatment for pneumonia. You required intubation and mechanical ventilation for some days. You were weaned off the ventilator and successfully off oxygen. You had some confusion after getting off the ventilator which has fully resolved. You had been on hemodialysis for your end stage kidney disease while in the hospital. You have left hip pain and scan showed osteoarthritis. You were started on amlodipine for better blood pressure control. Your metoprolol tartarate was changed from 100mg daily to 50mg twice a day for better heart rate control. You are being discharged to [facility] for rehab. Please ensure follow up with your Primary Doctor and Kidney doctor. Please do not resume smoking as we discussed. You have been able to not smoke for the 20 days you have been in the hospital. However, if you develop any craving, you can talk to Dr at rehab or your Dr and can get nicotine replacement therapy resumed. It was a pleasure taking care of you. Pending Studies at Discharge: No Stand-Alone Forms: My [employer] Skilled Items Patient informed of condition?: Yes DNR: No Discharge Level of Care: Acute rehab Communicable Disease: No Discharge Prognosis: Stable Lines: None Urinary Catheter: No Medications and DC Order Prescriptions: New acetaminophen 325 mg Tablet 650 mg PO Q4H PRN (Reason: pain) Qty: 30 RF: 0 amlodipine [Norvasc] 5 mg Tablet 5 mg PO QAM Qty: 30 RF: 0 lidocaine 5 % Adhesive Patch,Medicated 1 patch transdermal QAM Qty: 15 RF: 0 metoprolol tartrate 50 mg Tablet 50 mg PO BID Qty: 60 RF: 0 Continued albuterol sulfate 2.5 mg /3 mL (0.083 %) solution for nebulization 2.5 mg inhalation Q6 PRN (Reason: Shortness Of Breath) RF: 0 Anoro Ellipta 62.5-25 mcg/actuation Blister With Device 1 inh inhalation DAILY Qty: 60 RF: 0 benzonatate 100 mg Capsule 100 mg PO TID PRN (Reason: Cough) RF: 0 ondansetron 4 mg tablet,disintegrating 4 mg PO Q8 PRN (Reason: Nausea) RF: 0 ProRenal 8 mg iron-800 mcg-1,000 unit tablet 1 tab PO DAILY RF: 0 levothyroxine 125 mcg tablet 125 mcg PO QAM RF: 0 albuterol sulfate 90 mcg/actuation HFA aerosol inhaler 2 puff INHALATION Q6H PRN (Reason: Cough) RF: 0 sevelamer carbonate 800 mg tablet 2,400 mg PO TIDM RF: 0 cyclobenzaprine 10 mg Tablet 10 mg PO HS Qty: 30 RF: 0 ropinirole 1 mg Tablet 1 mg PO DAILY Qty: 30 RF: 0 Discontinued sildenafil 100 mg Tablet 100 mg PO DAILY PRN (Reason: erectile dysfuntion) RF: 0 hydroxyzine HCl 25 mg tablet 25 - 50 mg PO HS PRN (Reason: anxiety) RF: 0 metoprolol tartrate 100 mg tablet 100 mg PO QAM RF: 0 nicotine [Nicoderm CQ] 21 mg/24 hr Patch 24 Hour 21 mg transdermal DAILY Qty: 28 RF: 0 Discharge Orders: Discharge Order (Routine); Ordered 03/04/21 Ordered By: Cara Jacques/Other Patient Handouts: Type 2 Diabetes Admission Data Admit Date/Time: 02/13/21 20:39 Attending Provider: Cara Mata I. Admit Provider: Chaka Sorto Primary Care Provider: Sabino Murphy Other Providers: Chaka Sorto ; Grecia Patel ; Kamron Yanez ; [facility] ; Jorje Quinteros ; Momo Richter ; Danita Edmondson ; Jennie Luther ; Phoebe Veras ; Oni Jaime ; [place] ; [facility], ; Vince Dunham
[2021-03-04] MEDS: HEPARIN SOD (PORCINE) 1000 UNIT/ML IV SCH (11:36)
--- NOTE | 2021-03-04 12:11 | Pharmacy Report ---
Pharmacy Glycemic Sign Off Nt - Date of Service March 04, 2021 - Assessment & Plan ASSESSMENT: * Pharmacy initially consulted for glycemic management 2nd steroids, which have now been off * BSG's have ranged 118-169 mg/dL over the last 24 hours with only 2 units of correctional insulin administered * No basal, no CHO ratio ordered or needed * Not on any diabetes meds at home * OK to sign off per Dr. Mata PLAN FOR INPATIENT GLYCEMIC CONTROL: No changes needed to current regimen. * Continue NovoLog per scale ACHS/Q6hrs while NPO * Goal range = 110 140 mg/dl * CF = 40 mg/dl/unit * CR = 1 unit for ever 20 g CHO consumed * Pharmacy is signing off of glycemic consult and will no longer be making adjustments to inpatient regimen. Please feel free to re-consult if needed. Thank you.
[2021-03-04 15:40] VITALS: BP 98/48; PULSE 88; TEMP 97.7
== END 2021-03-04 15:45 | DRG 208 ==
LOC: ED 16:11 → EDINP 20:39 → SUATTDRO 20:39 → 2S 22:52 → 2E 02-16 02:56

== ENCOUNTER 2021-03-24 00:20 | Inpatient (IN) ==
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
[2021-03-24 01:24] LABS: Basophils # (auto) 0.07 K/uL (0-0.2); Basophils % (auto) 0.4 %; Eosinophils # (auto) 0.15 K/uL (0-0.5); Eosinophils % (auto) 0.9 %; Hematocrit (blood only) 31.1 % (42-52); Hemoglobin 9.7 g/dL (14.0-18.0); Immature Granulocytes # (auto) 0.66 K/uL (0.00-0.02); Immature Granulocytes % (auto) 4.1 %; Lymphocytes # (auto) 1.67 K/uL (1.2-3.4); Lymphocytes % (auto) 10.4 %; Mean Corpuscular Hgb Conc 31.2 g/dL (32-36); Mean Corpuscular Volume 89.9 fL (80-100); Mean Platelet Volume 9.7 fL (7.4-10.4); Monocytes # (auto) 1.53 K/uL (0.11-0.59); Monocytes % (auto) 9.5 %; Neutrophils % (auto) 74.7 %; Platelet Count 421 K/uL (130-400); RDW Coefficient of Variation 16.9 % (11.5-14.5); RDW Standard Deviation 55.2 fL (36.4-46.3); Red Blood Count 3.46 M/uL (4.7-6.1); White Blood Count 16.08 K/uL (4.8-10.8)
[2021-03-24 02:04] LABS: Alanine Aminotransferase 17 U/L (7-52); Albumin Globulin Ratio 1.1 (0.9-2); Albumin Level 3.2 gm/dl (3.4-5.0); Alkaline Phosphatase 132 U/L (34-104); Anion Gap 13 (3-11); Aspartate Aminotransferase 15 U/L (13-39); BUN Creatinine Ratio 11.2 (10-20); Bilirubin,Total 0.5 mg/dl (0.2-1.0); Blood Urea Nitrogen 71 mg/dl (6-23); Calcium 7.3 mg/dl (8.5-10.1); Carbon Dioxide 25 mmol/L (21-32); Chloride 98 mmol/L (98-107); Est GFR (African American) 9.4 ml/min; Est GFR (Non-African American) 8.1 ml/min; Glucose 211 mg/dl (70-99(Fasting)); Potassium 4.9 mmol/L (3.5-5.1); Sodium 136 mmol/L (136-145); Total Protein 6.2 gm/dl (6.0-8.3)
[2021-03-24 02:06] LABS: Troponin I 0.05 ng/ml (0-0.04)
[2021-03-24] MEDS ORDERED: XOPENEX/ATROVENT 1.25mg/0.5MG NEB COMBO NEB STA (03:27)
[2021-03-24] MEDS ORDERED: METOPROLOL TARTRATE 1 MG/ML VIAL IV STA (03:31)
[2021-03-24] MEDS ORDERED: IPRATROPIUM BROMIDE NEB SOLN 0.02% 2.5 ML VIAL INH STA (03:32)
[2021-03-24] MEDS ORDERED: LEVALBUTEROL 1.25MG/0.5ML NEB INH STA (03:32)
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
[2021-03-24] MEDS ORDERED: PANTOPRAZOLE BOLUS/DRIP 1 EA IV STA (04:21)
[2021-03-24] MEDS ORDERED: FUROSEMIDE 40 MG/4 ML VIAL IV STA (04:32)
[2021-03-24] MEDS: PANTOprazole 80 MG in DEXTROSE 5% 100 ML IV ONE ×2 (04:50→06:19)
[2021-03-24] MEDS: PANTOprazole 40 MG in DEXTROSE 5% 100 ML IV SCH ×4 (05:06→17:47)
[2021-03-24] MEDS ORDERED: GLUCAGON FOR INJ 1 MG VIAL SQ PRN (05:36)
[2021-03-24] MEDS ORDERED: BENZONATATE 100 MG CAPSULE PO PRN (05:36)
[2021-03-24] MEDS ORDERED: IPRATROPIUM BROMIDE NEB SOLN 0.02% 2.5 ML VIAL INH PRN (05:36)
[2021-03-24] MEDS ORDERED: XOPENEX/ATROVENT 1.25mg/0.5MG NEB COMBO NEB PRN (05:36)
[2021-03-24] MEDS ORDERED: GLUCOSE 40% GEL 15 GM TUBE PO PRN (05:36)
[2021-03-24] MEDS ORDERED: LEVALBUTEROL 1.25MG/0.5ML NEB INH PRN (05:36)
[2021-03-24] MEDS ORDERED: DEXTROSE 50% 50 ML SYRINGE IV PRN (05:36)
[2021-03-24] MEDS ORDERED: PROMETHAZINE HCL 12.5 MG in SODIUM CHLORIDE 0.9% 50 ML IV PRN (05:36)
[2021-03-24] MEDS ORDERED: GLUCOSE 10 TABS/TUBE PO PRN (05:36)
[2021-03-24] MEDS ORDERED: traMADol HCL 50 MG TABLET PO PRN (05:36)
[2021-03-24] MEDS ORDERED: CARBOHYDRATES FOR HYPOGLYCEMIA PO PRN (05:36)
[2021-03-24] MEDS ORDERED: NITROGLYCERIN SL 0.4 MG/TAB TAB SL PRN (05:36)
--- NOTE | 2021-03-24 07:17 | XRay Report ---
XR chest 1V portable CLINICAL HISTORY: Dyspnea. Follow-up airspace opacities COMPARISON STUDY: 02/20/2021 TECHNIQUE: 1 view of the chest FINDINGS: Single frontal view of the chest demonstrates the cardiomediastinal silhouette to be within normal li mits. Compared to previous examination, there has been diffuse increase in the interstitial markings. Haziness is present involving both lungs which could relate to groundglass opacities. The lungs are otherwise clear of confluent alveolar opacities. There is no evidence for pleural effusion. There is no evidence for vascular congestion. There is no acute osseous pathology. IMPRESSION: 1. Increased prominence of the interstitial markings when compared to previous study and mild hazines s of the lungs bilaterally. The presence of underlying groundglass opacities cannot be excluded based on this study. ACT 112: Negative or not required by law. Electronically signed by: Peter Monson M.D. 03/24/2021 7:16 AM
[2021-03-24] MEDS: LEVOTHYROXINE SODIUM 125 MCG TABLET PO SCH (08:17)
[2021-03-24] MEDS: rOPINIRole HCL 1 MG TABLET PO SCH (08:19)
[2021-03-24] MEDS: METOPROLOL TARTRATE 50 MG TAB PO SCH ×2 (08:20→21:27)
[2021-03-24] MEDS: CEROVITE ADV FORMULA TAB PO SCH (08:20)
[2021-03-24] MEDS: amLODIPine BESYLATE 5 MG TAB PO SCH (08:20)
[2021-03-24] MEDS: SEVELAMER HCL 800 MG TABLET PO SCH ×3 (08:20→19:25)
[2021-03-24] MEDS: LIDOCAINE 5% 1 PATCH TD SCH (08:20)
[2021-03-24] MEDS: INSULIN GLARGINE SOLOSTAR 100 UNITS/ML 3 ML PEN SC SCH (08:21)
[2021-03-24] MEDS: UMECLIDINIUM/VILANTEROL 62.5/25MCG 7 PUFFS/INHALER INH SCH (08:21)
[2021-03-24] MEDS: INSULIN ASPART PER UNIT SC SCH ×4 (08:50→21:37)
[2021-03-24 08:58] LABS: Hematocrit (blood only) 31.1 % (42-52); Hemoglobin 9.8 g/dL (14.0-18.0); Reticulocyte % 0.7 % (0.5-2.0); Reticulocytes # 0.02 10^6/uL (0.02-0.10)
[2021-03-24 09:23] LABS: Troponin I 0.06 ng/ml (0-0.04)
[2021-03-24 09:38] LABS: Ferritin 1182.6 ng/ml (8-388)
[2021-03-24 10:51] LABS: Folate (Folic Acid) 10.12 ng/ml (>5.38)
[2021-03-24 10:58] LABS: Thyroid Stimulating Hormone 22.258 uIu/ml (0.300-4.500)
[2021-03-24] MEDS: THIAMINE HCL 100 MG TAB PO SCH (11:08)
[2021-03-24 11:33] LABS: T4 Free Thyroxine 0.72 ng/dl (0.61-1.60)
[2021-03-24] MEDS: ACETAMINOPHEN 325 MG TAB PO PRN ×2 (12:17→23:46)
[2021-03-24 13:08] LABS: Hepatitis B Surface Ab Quant 31.72 mIU/mL (>or=10mIU/mL Immune); Hepatitis B Surface Antibody Immune
[2021-03-24 13:19] LABS: Hepatitis B Surf Ag Rflx Conf Neg (Neg)
[2021-03-24] MEDS ORDERED: SODIUM CHLORIDE 0.9% 1000ML 1,000 ML IV PRN (13:28)
[2021-03-24] MEDS ORDERED: HEPARIN SOD (PORCINE) 1000 UNIT/ML IV ONE (13:28)
[2021-03-24] MEDS: HEPARIN SOD (PORCINE) 1000 UNIT/ML IV SCH ×2 (15:35→16:26)
--- NOTE | 2021-03-24 17:32 | Hospitalist Progress Note ---
Date of Service March 24, 2021 Assessment & Plan (1) Fluid overload: (2) Respiratory failure: Plan: #. Acute hypoxemic respiratory failure #. ESRD on HD MWF Secondary to fluid overload likely secondary to dietary discretion per documentation. Patient lethargic at bedside exam and not able to participate fully. Currently requiring 4 L oxygen mask, nephrology consulted for hemodialysis, expect to improve with hemodialysis. Patient was doing all right after discharge for 10 days in rehab, he has been in the home for 7 days prior to arrival this time and presented with fluid overload. Patient's at bedside reports compliance with hemodialysis. She also reports that it is difficult to have the patient follow care directions, as he does what he likes. #. Anemia Patient was initially evaluated for possible UGI bleed, FOBT came back negative in ED. Patient denies any melanotic or dark-colored stool. Low hemoglobin noted could be due to hemodilution d/t fluid overload. Continue to monitor hemoglobin level daily. #. Other chronic medical conditions: PAF not on anticoagulation, DM2 diet controlled, Graves' disease status post surgery, COPD not in acute exacerbation, pulmonary nodule [needs outpatient follow-up]: Resume/continue with home meds as and when appropriate. DVT prophylaxis.Hep SC Full code Patient's requesting updates from providers. Ms. Joan Gustafson, contact #[phone]. 03/24--->Updated patient's at bedside. Admission and Anticipated Discharge Date Admission Date: March 24, 2021 Subjective Patient seen and examined at bedside for hypoxic respiratory failure Likely secondary to volume overload likely due to dietary and fluid intake noncompliance on the background of ESRD on hemodialysis. Physical Exam Physical Exam: GENERAL: lethargic and oriented x3. NAD, on 4L. HEENT: No pallor, no icterus. Pupils equal, round and reactive to light. Oral mucosa moist. NECK: No JVD, no neck masses. HEART: S1 and S2 heard. Regular rate and rhythm. No murmur, no gallop. RESPIRATORY SYSTEM: Normal AP diameter. No accessory muscle use. No wheezing, bibasilar crackles. ABDOMEN: Soft, bowel sounds present, nontender, no distention. CENTRAL NERVOUS SYSTEM: No facial droop. Speech is clear. Obeys simple commands. Moves extremities. EXTREMITIES: 1-2 + BLE edema, no erythema seen. Ticklish legs/abdomen on exam. Results & Data Results & Data ([facility]) Vital Signs (Past 12 Hours) Vital Signs Temp Pulse Pulse Pulse Resp BP BP 03/24/21 17:00 86 140/73 03/24/21 16:40 88 138/68 03/24/21 16:20 86 122/66 03/24/21 16:00 88 136/73 03/24/21 15:40 88 125/65 03/24/21 15:20 84 123/73 03/24/21 15:00 75 116/63 03/24/21 14:40 78 132/65 03/24/21 14:20 83 142/65 H 03/24/21 14:00 80 135/65 03/24/21 13:48 36.4 C L 80 03/24/21 11:31 03/24/21 11:12 88 16 147/63 H 03/24/21 11:03 88 16 03/24/21 08:00 03/24/21 07:16 94 H 25 H 152/72 H 03/24/21 06:17 91 H 16 150/91 H Pulse Ox Pulse Ox 03/24/21 17:00 03/24/21 16:40 03/24/21 16:20 03/24/21 16:00 03/24/21 15:40 03/24/21 15:20 03/24/21 15:00 03/24/21 14:40 03/24/21 14:20 03/24/21 14:00 03/24/21 13:48 03/24/21 11:31 87 L 03/24/21 11:12 91 03/24/21 11:03 03/24/21 08:00 94 03/24/21 07:16 94 03/24/21 06:17 93
[2021-03-24] MEDS: HEPARIN SOD 5,000 UNIT/0.5 ML VIAL SQ SCH (21:26)
[2021-03-24] MEDS: CYCLOBENZAPRINE HCL 10 MG TAB PO SCH (21:26)
--- NOTE | 2021-03-24 22:35 | Electrocardiogram Report ---
Test Reason : Blood Pressure : / mmHG Vent. Rate : 103 BPM Atrial Rate : 103 BPM P-R Int : 146 ms QRS Dur : 082 ms QT Int : 360 ms P-R-T Axes : 070 040 073 degrees QTc Int : 471 ms Poor data quality, interpretation may be adversely affected Sinus tachycardia with occasional Premature ventricular complexes Otherwise normal ECG When compared with ECG of 23-FEB-2021 15:48, Sinus rhythm has replaced Atrial fibrillation Nonspecific T wave abnormality no longer evident in Inferior leads Confirmed by Ash Chang ([id number]) on 03/24/2021 10:35:00 PM Referred By: REFERRED SELF Confirmed By:Ash Chang
--- NOTE | 2021-03-24 22:36 | Electrocardiogram Report ---
Test Reason : Blood Pressure : / mmHG Vent. Rate : 096 BPM Atrial Rate : 096 BPM P-R Int : 146 ms QRS Dur : 088 ms QT Int : 358 ms P-R-T Axes : 055 055 074 degrees QTc Int : 452 ms Normal sinus rhythm Normal ECG When compared with ECG of 24-MAR-2021 00:32, (unconfirmed) Premature ventricular complexes are no longer Present Confirmed by Ash Chang ([id number]) on 03/24/2021 10:35:43 PM Referred By: REFERRED SELF Confirmed By:Ash Chang
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
[2021-03-25] MEDS: LEVOTHYROXINE SODIUM 125 MCG TABLET PO SCH (06:01)
[2021-03-25] MEDS: HEPARIN SOD 5,000 UNIT/0.5 ML VIAL SQ SCH ×2 (09:24→21:46)
[2021-03-25] MEDS: SEVELAMER HCL 800 MG TABLET PO SCH ×3 (09:24→17:24)
[2021-03-25] MEDS: amLODIPine BESYLATE 5 MG TAB PO SCH (09:24)
[2021-03-25] MEDS: THIAMINE HCL 100 MG TAB PO SCH (09:25)
[2021-03-25] MEDS: CEROVITE ADV FORMULA TAB PO SCH (09:25)
[2021-03-25] MEDS: METOPROLOL TARTRATE 50 MG TAB PO SCH ×2 (09:25→21:41)
[2021-03-25] MEDS: rOPINIRole HCL 1 MG TABLET PO SCH (09:25)
[2021-03-25] MEDS: INSULIN ASPART PER UNIT SC SCH ×4 (09:43→21:54)
[2021-03-25] MEDS: INSULIN GLARGINE SOLOSTAR 100 UNITS/ML 3 ML PEN SC SCH (09:43)
[2021-03-25 10:48] LABS: Basophils # (auto) 0.06 K/uL (0-0.2); Basophils % (auto) 0.4 %; Eosinophils # (auto) 0.27 K/uL (0-0.5); Hematocrit (blood only) 34.2 % (42-52); Hemoglobin 10.7 g/dL (14.0-18.0); Immature Granulocytes # (auto) 0.32 K/uL (0.00-0.02); Immature Granulocytes % (auto) 2.3 %; Lymphocytes # (auto) 1.14 K/uL (1.2-3.4); Lymphocytes % (auto) 8.3 %; Mean Corpuscular Hemoglobin 28.5 pg (25-34); Mean Corpuscular Hgb Conc 31.3 g/dL (32-36); Mean Corpuscular Volume 91.2 fL (80-100); Mean Platelet Volume 10.1 fL (7.4-10.4); Monocytes # (auto) 1.01 K/uL (0.11-0.59); Monocytes % (auto) 7.4 %; Neutrophils # (auto) 10.86 K/uL (1.4-6.5); Neutrophils % (auto) 79.6 %; Platelet Count 425 K/uL (130-400); RDW Coefficient of Variation 16.9 % (11.5-14.5); RDW Standard Deviation 56.6 fL (36.4-46.3); Red Blood Count 3.75 M/uL (4.7-6.1); White Blood Count 13.66 K/uL (4.8-10.8)
[2021-03-25 11:13] LABS: BUN Creatinine Ratio 8.7 (10-20); Creatinine Clr Calc Pharmacy 14.5 ml/min; Est GFR (African American) 13.5 ml/min; Est GFR (Non-African American) 11.6 ml/min; Potassium 4.5 mmol/L (3.5-5.1)
[2021-03-25] MEDS: LIDOCAINE 5% 1 PATCH TD SCH (13:53)
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
[2021-03-25] MEDS: CYCLOBENZAPRINE HCL 10 MG TAB PO SCH (21:41)
[2021-03-26] MEDS: LEVOTHYROXINE SODIUM 125 MCG TABLET PO SCH (06:30)
[2021-03-26] MEDS ORDERED: SODIUM CHLORIDE 0.9% 1000ML 1,000 ML IV PRN (07:00)
[2021-03-26] MEDS ORDERED: HEPARIN SOD (PORCINE) 1000 UNIT/ML IV ONE (07:00)
[2021-03-26] MEDS: INSULIN ASPART PER UNIT SC SCH ×4 (07:13→21:06)
[2021-03-26] MEDS: SEVELAMER HCL 800 MG TABLET PO SCH ×4 (07:16→19:10)
[2021-03-26 08:02] LABS: Hematocrit (blood only) 29.5 % (42-52); Hemoglobin 9.2 g/dL (14.0-18.0); Mean Corpuscular Hgb Conc 31.2 g/dL (32-36); Mean Corpuscular Volume 89.9 fL (80-100); Platelet Count 379 K/uL (130-400); RDW Coefficient of Variation 16.7 % (11.5-14.5); RDW Standard Deviation 55.3 fL (36.4-46.3); Red Blood Count 3.28 M/uL (4.7-6.1); White Blood Count 13.11 K/uL (4.8-10.8)
[2021-03-26] MEDS: LIDOCAINE 5% 1 PATCH TD SCH (08:19)
[2021-03-26] MEDS: METOPROLOL TARTRATE 50 MG TAB PO SCH ×2 (08:19→20:03)
[2021-03-26] MEDS: INSULIN GLARGINE SOLOSTAR 100 UNITS/ML 3 ML PEN SC SCH (08:19)
[2021-03-26] MEDS: amLODIPine BESYLATE 5 MG TAB PO SCH (08:19)
[2021-03-26] MEDS: HEPARIN SOD 5,000 UNIT/0.5 ML VIAL SQ SCH ×3 (08:19→21:01)
[2021-03-26] MEDS: CEROVITE ADV FORMULA TAB PO SCH (08:20)
[2021-03-26] MEDS: rOPINIRole HCL 1 MG TABLET PO SCH (08:20)
[2021-03-26] MEDS: THIAMINE HCL 100 MG TAB PO SCH (08:20)
[2021-03-26 08:35] LABS: BUN Creatinine Ratio 8.9 (10-20); Calcium 7.7 mg/dl (8.5-10.1); Creatinine Clr Calc Pharmacy 11.5 ml/min; Est GFR (African American) 10.1 ml/min; Est GFR (Non-African American) 8.7 ml/min; Magnesium 2.2 mg/dl (1.7-2.4)
--- NOTE | 2021-03-26 11:52 | Dialysis Progress Note ---
Date of Service March 26, 2021 Assessment & Plan (1) ESRD (end stage renal disease) on dialysis: Plan: Continue Wednesday hemodialysis four hour treatments with goal of improving volume status. 2K bath. No EPO due to lung nodule >> nodule biopsy was to have been today; will need to reschedule at hospital d/c Continue dialysis diet to which I added fluid limit 1 L daily Repeat chest x-ray date this week or as respiratory status necessitates (2) Acute dyspnea: Plan: Multifactorial from severe COPD with recent pneumonia from Covid and respiratory failure requiring intubation. Also a component of fluid overload: Continue as aggressive as possible fluid removal with dialysis Chest x-ray as above Admission and Anticipated Discharge Date Admission Date: March 24, 2021 Subjective feels his breathing is improving but still on 3L ; no uncontrolled pain, no pruritis; denies edema, follows 32 oz FR at home Review of Systems Review of Systems: All systems reviewed & are unremarkable except as noted in Subjective Physical Exam Constitutional: well developed and well nourished Eyes: EOM intact bilaterally ENMT: Ears: no external ear abnormality Nose: no external nose abnormality Neck: no nuchal rigidity Respiratory: normal respiratory effort Auscultation: + diminished lung sounds Cardiovascular: Rate/Rhythm: regular rate and regular rhythm Extremities: + edema (trace BLE and marked facial edema) Gastrointestinal (Abdomen): Inspection/Auscultation: normal bowel sounds Percussion/Palpation: abdomen soft; abdomen nontender Musculoskeletal: Extremities: strength 5/5 throughout Skin: no rashes, warm and dry Neurologic: bobby, fluent speech, no tremor Psychiatric: Orientation: oriented x 3 Results & Data ([facility]) Vital Signs (Past 12 Hours) Vital Signs Temp Pulse Pulse Resp BP BP Pulse Ox 03/26/21 11:29 73 134/73 03/26/21 11:00 68 136/68 03/26/21 10:30 65 129/65 03/26/21 10:25 36.5 C 65 03/26/21 03:00 36.6 C 68 18 151/60 H 98 03/26/21 00:00 Pulse Ox 03/26/21 11:29 03/26/21 11:00 03/26/21 10:30 03/26/21 10:25 03/26/21 03:00 03/26/21 00:00 94 Laboratory Results 03/26/21 07:41 03/26/21 07:41
[2021-03-26] MEDS: HEPARIN SOD (PORCINE) 1000 UNIT/ML IV SCH (15:46)
--- NOTE | 2021-03-26 16:51 | Hospitalist Progress Note ---
Date of Service March 26, 2021 Assessment & Plan (1) Fluid overload: Plan: Acute congestive heart failure, combined with mild systolic and diastolic component Echocardiogram showed moderate sized wall motion abnormality with severe hypokinesis to akinesis and a small dyskinetic section of the very apex. Wall motion abnormalities involve the mid and apical inferior and anterior septum. EF 50 to 54%, moderate mitral annular calcification, mild MR, grade 2 diastolic dysfunction. No pulmonary hypertension Chest x-ray did show congestive changes Symptoms improved following dialysis (2) Respiratory failure: Plan: Acute hypoxemic respiratory failure ESRD on HD MWF Secondary to fluid overload likely secondary to dietary indiscretion per documentation. Patient lethargic at bedside exam and not able to participate fully. Currently requiring 4 L oxygen mask, nephrology on board for hemodialysis, expect to improve with hemodialysis. Patient was doing all right after discharge for 10 days in rehab, he has been in the home for 7 days prior to arrival this time and presented with fluid overload. Pt still requiring 4L O2 and has somewhat improving BLE edema. Appreciate nephrology input and recommended Status post hemodialysis today 03/26/2021 He has been feeling much better following dialysis and the chest examination remains unremarkable Anemia Patient was initially evaluated for possible UGI bleed, FOBT came back negative in ED. Patient denies any melanotic or dark-colored stool. Low hemoglobin noted initially could be due to hemodilution d/t fluid overload. Continue to monitor hemoglobin level daily. Hemoglobin today 10.7 Other chronic medical conditions: PAF not on anticoagulation, DM2 diet controlled, Graves' disease status post surgery, COPD not in acute exacerbation, pulmonary nodule [needs outpatient follow-up]: Resume/continue with home meds as and when appropriate. DVT prophylaxis.Hep SC Full code Patient's requesting updates from providers. Ms. Joan Gustafson, contact #[phone]. Disposition: High risk of readmission given dietary indiscretion. PT/OT. CM to assist with DC planning. Admission and Anticipated Discharge Date Admission Date: March 24, 2021 Subjective 03/26/2021 The patient was seen and examined in emergency room in the [facility] area He was admitted with acute shortness of breath and has been feeling much better following dialysis Review of Systems Review of Systems: All systems reviewed and are unremarkable except as noted below Physical Exam Physical Exam: Lying in bed comfortably Constitutional: average body habitus; not ill appearing Eyes: PERRL, conjunctivae normal, anicteric sclerae ENMT: external ear and nose normal, oropharynx normal Neck: trachea midline, no thyromegaly Respiratory: no respiratory distress Auscultation: lungs clear to auscultation bilaterally Cardiovascular: Rate/Rhythm: regular rate, regular rhythm and + tachycardic Heart Sounds: normal S1 and normal S2; no murmur Extremities: + edema (1+ edema bilateral) Gastrointestinal (Abdomen): Inspection/Auscultation: normal bowel sounds; abdomen not distended Musculoskeletal: No acute arthritis involving any joint Neurologic: Alert, awake and oriented x3 Results & Data Results & Data ([facility]) Vital Signs (Past 12 Hours) Vital Signs Temp Pulse Pulse Pulse BP BP Pulse Ox 03/26/21 14:30 36.5 C 98 H 78 131/70 03/26/21 14:00 79 144/70 H 03/26/21 13:30 77 121/69 03/26/21 13:00 69 112/61 03/26/21 12:30 71 135/72 03/26/21 12:00 64 143/66 H 03/26/21 11:30 73 134/73 03/26/21 11:00 68 136/68 03/26/21 10:53 93 03/26/21 10:30 65 129/65 03/26/21 10:25 36.5 C 65 Laboratory Results Short CBC 03/26/21 Range/Units 07:41 WBC 13.11 H (4.8-10.8) K/uL Hgb 9.2 L (14.0-18.0) g/dL Hct 29.5 L (42-52) % Plt Count 379 (130-400) K/uL BMP 03/26/21 07:41 Sodium 135 L Potassium 5.0 Chloride 100 Carbon Dioxide 22 BUN 53 H Creatinine 5.95 H* D Glucose 112 H Calcium 7.7 L Medications Administered Current Inpatient Medications Acetaminophen (Acetaminophen 325 Mg Tab) 650 mg PO Q4H PRN PRN Reason: pain Stop: 04/23/21 05:35 Last Admin: 03/24/21 23:46 Dose: 650 mg Documented by: Amlodipine Besylate (Amlodipine Besylate 5 Mg Tab) 5 mg PO QAM [facility] Stop: 04/23/21 08:59 Last Admin: 03/26/21 08:19 Dose: 5 mg Documented by: Benzonatate (Benzonatate 100 Mg Capsule) 100 mg PO TID PRN PRN Reason: Cough Stop: 04/23/21 05:35 Cyclobenzaprine HCl (Cyclobenzaprine Hcl 10 Mg Tab) 10 mg PO HS [facility] Stop: 04/23/21 20:59 Last Admin: 03/25/21 21:41 Dose: 10 mg Documented by: Dextrose (Dextrose 50% 50 Ml Syringe) 25 - 50 ml IV UD PRN; Protocol PRN Reason: Hypoglycemia Protocol Stop: 04/23/21 05:35 Glucagon (Glucagon For Inj 1 Mg Vial) 1 mg SQ UD PRN; Protocol PRN Reason: Hypoglycemia Protocol Stop: 04/23/21 05:35 Glucose (Glucose 10 Tabs/Tube) 4 - 8 tabs PO UD PRN; Protocol PRN Reason: Hypoglycemia Protocol Stop: 04/23/21 05:35 Glucose (Glucose 40% Gel 15 Gm Tube) 15 - 30 gm PO UD PRN; Protocol PRN Reason: Hypoglycemia Protocol Stop: 04/23/21 05:35 Heparin Sodium (Porcine) (Heparin Sod 5,000 Unit/0.5 Ml Vial) 5,000 units SQ BID [facility] Stop: 04/23/21 20:59 Last Admin: 03/26/21 08:19 Dose: Not Given Documented by: Promethazine HCl 12.5 mg/ (Sodium Chloride) 50.5 mls @ 202 mls/hr IV Q6H PRN PRN Reason: Nausea And Vomiting Stop: 04/23/21 05:35 Insulin Aspart (Insulin Aspart Per Unit) 0 units SC ACHS [facility] Stop: 04/23/21 07:29 Last Admin: 03/26/21 07:13 Dose: Not Given Documented by: Insulin Glargine (Insulin Glargine Solostar 100 Units/Ml 3 Ml Pen) 5 units SC DAILY [facility] Stop: 04/23/21 08:59 Last Admin: 03/26/21 08:19 Dose: Not Given Documented by: Ipratropium [place] (Ipratropium [place] Neb Soln 0.02% 2.5 Ml Vial) 0.5 mg INH Q4H PRN PRN Reason: SOB/WHEEZING Stop: 04/23/21 05:35 Levalbuterol HCl (Levalbuterol 1.25mg/0.5ml Neb) 1.25 mg INH Q4H PRN PRN Reason: SOB/WHEEZING Stop: 04/23/21 05:35 Levothyroxine Sodium (Levothyroxine Sodium 125 Mcg Tablet) 125 mcg PO DAILYBB [facility] Stop: 04/23/21 07:29 Last Admin: 03/26/21 06:30 Dose: 125 mcg Documented by: Lidocaine (Lidocaine 5% 1 Patch) 1 patch TD QAM [facility] Stop: 04/23/21 08:59 Last Admin: 03/26/21 08:19 Dose: Not Given Documented by: Metoprolol Tartrate (Metoprolol Tartrate 50 Mg Tab) 50 mg PO BID [facility] Stop: 04/23/21 08:59 Last Admin: 03/26/21 08:19 Dose: 50 mg Documented by: Miscellaneous (Remove Lidoderm Patch) 1 ea N/A DAILY@2100 [facility] Stop: 04/23/21 20:59 Last Admin: 03/25/21 21:50 Dose: 1 ea Documented by: Miscellaneous (Carbohydrates For Hypoglycemia ) 15 - 30 gm PO UD PRN PRN Reason: Hypoglycemia Protocol Stop: 04/23/21 05:35 Multivitamins/Minerals (Cerovite Adv Formula Tab) 1 tab PO DAILY [facility] Stop: 04/23/21 08:59 Last Admin: 03/26/21 08:20 Dose: 1 tab Documented by: Nitroglycerin (Nitroglycerin Sl 0.4 Mg/Tab Tab) 0.4 mg SL UD PRN PRN Reason: Chest Pain Stop: 04/23/21 05:35 Ropinirole HCl (Ropinirole Hcl 1 Mg Tablet) 1 mg PO DAILY [facility] Stop: 04/23/21 08:59 Last Admin: 03/26/21 08:20 Dose: 1 mg Documented by: Sevelamer HCl (Sevelamer Hcl 800 Mg Tablet) 2,400 mg PO TIDM [facility] Stop: 04/23/21 07:59 Last Admin: 03/25/21 17:24 Dose: 2,400 mg Documented by: Thiamine HCl (Thiamine Hcl 100 Mg Tab) 100 mg PO QAM [facility] Stop: 03/30/21 09:01 Last Admin: 03/26/21 08:20 Dose: 100 mg Documented by: Tramadol HCl (Tramadol Hcl 50 Mg Tablet) 25 - 50 mg PO Q4H PRN PRN Reason: Pain Stop: 04/23/21 05:35 Umeclidinium/Vilanterol (Umeclidinium/Vilanterol 62.5/25mcg 7 Puffs/Inhaler) 1 puffs INH DAILY [facility] Stop: 04/23/21 08:59 Last Admin: 03/24/21 08:21 Dose: 1 puffs Documented by:
[2021-03-26] MEDS: UMECLIDINIUM/VILANTEROL 62.5/25MCG 7 PUFFS/INHALER INH SCH ×2 (19:07→19:08)
[2021-03-26] MEDS: ACETAMINOPHEN 325 MG TAB PO PRN (20:03)
[2021-03-26] MEDS: CYCLOBENZAPRINE HCL 10 MG TAB PO SCH (20:03)
[2021-03-27] MEDS: LEVOTHYROXINE SODIUM 125 MCG TABLET PO SCH (05:49)
[2021-03-27] MEDS: UMECLIDINIUM/VILANTEROL 62.5/25MCG 7 PUFFS/INHALER INH SCH (08:29)
[2021-03-27] MEDS: rOPINIRole HCL 1 MG TABLET PO SCH (08:29)
[2021-03-27] MEDS: amLODIPine BESYLATE 5 MG TAB PO SCH (08:29)
[2021-03-27] MEDS: METOPROLOL TARTRATE 50 MG TAB PO SCH (08:29)
[2021-03-27] MEDS: SEVELAMER HCL 800 MG TABLET PO SCH ×2 (08:29→13:22)
[2021-03-27] MEDS: THIAMINE HCL 100 MG TAB PO SCH (08:29)
[2021-03-27] MEDS: CEROVITE ADV FORMULA TAB PO SCH (08:29)
[2021-03-27] MEDS: HEPARIN SOD 5,000 UNIT/0.5 ML VIAL SQ SCH (09:04)
[2021-03-27] MEDS: LIDOCAINE 5% 1 PATCH TD SCH (09:04)
[2021-03-27] MEDS: INSULIN ASPART PER UNIT SC SCH ×2 (09:45→13:23)
[2021-03-27] MEDS: INSULIN GLARGINE SOLOSTAR 100 UNITS/ML 3 ML PEN SC SCH (09:46)
--- NOTE | 2021-03-27 09:59 | Nephrology Progress Note ---
Date of Service March 27, 2021 Assessment & Plan (1) ESRD (end stage renal disease) on dialysis: Plan: Continue Wednesday hemodialysis four hour treatments with goal of improving volume status. 2K bath. No EPO due to lung nodule >> nodule biopsy was to have been today; will need to reschedule at hospital d/c. Tolerated 4.3 L fluid removal March 26 Continue dialysis diet and fluid limit 1 L daily Consider repeat chest x-ray late this week or as respiratory status necessitates (2) Acute dyspnea: Plan: Multifactorial from severe COPD with recent pneumonia from Covid and respiratory failure requiring intubation. Also a component of fluid overload: Continue as aggressive as possible fluid removal with dialysis Chest x-ray as above (3) Hemoptysis: Plan: New onset. Has outpatient neurologist with [facility]. Also with 55 years of smoking in the past and COPD. We will update hospitalist Admission and Anticipated Discharge Date Admission Date: March 24, 2021 Subjective No acute interval clinical events. Shortness of breath denied and is on room air when I saw him. He does tell me he coughed up blood raphael blood no speckles no clots x1 overnight first time ever. Otherwise in general with a dry cough. No nausea vomiting. Denies balance issues/concerns Review of Systems Review of Systems: All systems reviewed & are unremarkable except as noted in Subjective Physical Exam Constitutional: well developed and well nourished Eyes: EOM intact bilaterally ENMT: Ears: no external ear abnormality Nose: no external nose abnormality Neck: no nuchal rigidity Respiratory: normal respiratory effort Auscultation: + diminished lung sounds Cardiovascular: Rate/Rhythm: regular rate and regular rhythm Extremities: + edema (trace BLE and improved facial edema) Gastrointestinal (Abdomen): Inspection/Auscultation: normal bowel sounds Percussion/Palpation: abdomen soft; abdomen nontender Musculoskeletal: Extremities: strength 5/5 throughout Skin: no rashes, warm and dry Psychiatric: Orientation: oriented x 3 Results & Data ([facility]) Vital Signs (Past 12 Hours) Vital Signs Temp Pulse Resp BP Pulse Ox Pulse Ox 03/27/21 08:00 36.6 C 84 20 153/99 H 96 96 03/27/21 00:00 88 18 159/73 H 92 92 Laboratory Results 03/26/21 07:41 03/26/21 07:41
[2021-03-27 10:48] LABS: Basophils # (auto) 0.05 K/uL (0-0.2); Basophils % (auto) 0.4 %; Eosinophils # (auto) 0.37 K/uL (0-0.5); Eosinophils % (auto) 3.1 %; Hematocrit (blood only) 32.2 % (42-52); Hemoglobin 10.2 g/dL (14.0-18.0); Immature Granulocytes # (auto) 0.17 K/uL (0.00-0.02); Immature Granulocytes % (auto) 1.4 %; Lymphocytes # (auto) 1.09 K/uL (1.2-3.4); Lymphocytes % (auto) 9.2 %; Mean Corpuscular Hemoglobin 28.1 pg (25-34); Mean Corpuscular Hgb Conc 31.7 g/dL (32-36); Mean Corpuscular Volume 88.7 fL (80-100); Mean Platelet Volume 10.2 fL (7.4-10.4); Monocytes # (auto) 0.87 K/uL (0.11-0.59); Monocytes % (auto) 7.3 %; Neutrophils # (auto) 9.33 K/uL (1.4-6.5); Neutrophils % (auto) 78.6 %; Platelet Count 433 K/uL (130-400); RDW Coefficient of Variation 16.4 % (11.5-14.5); RDW Standard Deviation 53.8 fL (36.4-46.3); Red Blood Count 3.63 M/uL (4.7-6.1); White Blood Count 11.88 K/uL (4.8-10.8)
[2021-03-27 11:10] LABS: BUN Creatinine Ratio 7.7 (10-20); Calcium 8.1 mg/dl (8.5-10.1); Est GFR (African American) 13.5 ml/min; Est GFR (Non-African American) 11.6 ml/min; Potassium 4.8 mmol/L (3.5-5.1)
--- NOTE | 2021-03-27 13:52 | Hospitalist Progress Note ---
Date of Service March 27, 2021 Assessment & Plan (1) Fluid overload: Plan: Acute congestive heart failure, combined with mild systolic and diastolic component Echocardiogram showed moderate sized wall motion abnormality with severe hypokinesis to akinesis and a small dyskinetic section of the very apex. Wall motion abnormalities involve the mid and apical inferior and anterior septum. EF 50 to 54%, moderate mitral annular calcification, mild MR, grade 2 diastolic dysfunction. No pulmonary hypertension Chest x-ray did show congestive changes Symptoms improved following dialysis Denies any more symptoms of fluid overload (2) Respiratory failure: Plan: Has not been requiring any oxygen to maintain saturation Plan: Acute hypoxemic respiratory failure ESRD on HD MWF Secondary to fluid overload likely secondary to dietary indiscretion per documentation. Patient lethargic at bedside exam and not able to participate fully. Currently requiring 4 L oxygen mask, nephrology on board for hemodialysis, expect to improve with hemodialysis. Patient was doing all right after discharge for 10 days in rehab, he has been in the home for 7 days prior to arrival this time and presented with fluid overload. Pt still requiring 4L O2 and has somewhat improving BLE edema. Appreciate nephrology input and recommended Status post hemodialysis today 03/26/2021 He has been feeling much better following dialysis and the chest examination remains unremarkable He has had one episode of doubtful hemoptysis yesterday but did not have any more episode and/or symptoms following that He has been saturating normally on room air and has been ambulating in the room without any symptoms We will have to a step O2 saturation test and possible discharge this afternoon Discussed with the yarder operator-we will have dialysis tomorrow as scheduled COPD not in acute exacerbation, pulmonary nodule [needs outpatient follow-up]: History of pulmonary nodule for biopsy as an outpatient 1 episode of questionable hemoptysis yesterday and without any recurrence Was advised to keep follow-up appointment and have the biopsy done as an outpatient The patient and the are in understanding Anemia Patient was initially evaluated for possible UGI bleed, FOBT came back negative in ED. Patient denies any melanotic or dark-colored stool. Low hemoglobin noted initially could be due to hemodilution d/t fluid overload. Continue to monitor hemoglobin level daily. Hemoglobin today 10.7 Other chronic medical conditions: PAF not on anticoagulation, DM2 diet controlled, Graves' disease status post surgery, COPD not in acute exacerbation, pulmonary nodule [needs outpatient follow-up]: Resume/continue with home meds as and when appropriate. DVT prophylaxis.Hep SC Full code Patient's requesting updates from providers. Ms. Joan Gustafson, contact #[phone]. Disposition: High risk of readmission given dietary indiscretion. Will get 2 step O2 saturation and possible discharge this afternoon Admission and Anticipated Discharge Date Admission Date: March 24, 2021 Subjective 03/26/2021 The patient was seen and examined in emergency room in the holding area He was admitted with acute shortness of breath and has been feeling much better following dialysis 03/27/2021 The patient was seen and examined in emergency room holding area in presence of the He has been feeling much better and ambulating in the room without any symptoms Denies any chest pain and/or palpitation Review of Systems Review of Systems: All systems reviewed and are unremarkable except as noted b elow Respiratory: No shortness of breath at rest Physical Exam Physical Exam: Lying in bed comfortably Constitutional: average body habitus; not ill appearing Eyes: PERRL, conjunctivae normal, anicteric sclerae ENMT: external ear and nose normal, oropharynx normal Neck: trachea midline, no thyromegaly Respiratory: no respiratory distress Auscultation: lungs clear to auscultation bilaterally Cardiovascular: Rate/Rhythm: regular rate, regular rhythm and + tachycardic Heart Sounds: normal S1 and normal S2; no murmur Extremities: + edema (1+ edema bilateral) Gastrointestinal (Abdomen): Inspection/Auscultation: normal bowel sounds; abdomen not distended Musculoskeletal: No acute arthritis in any joint Neurologic: Alert, awake and oriented x3 Results & Data Results & Data ([facility]) Vital Signs (Past 12 Hours) Vital Signs Temp Pulse Resp BP Pulse Ox Pulse Ox 03/27/21 13:27 73 18 132/85 91 03/27/21 11:32 77 18 95 03/27/21 08:00 36.6 C 84 20 153/99 H 96 96 Laboratory Results Short CBC 03/27/21 Range/Units 10:29 WBC 11.88 H (4.8-10.8) K/uL Hgb 10.2 L (14.0-18.0) g/dL Hct 32.2 L (42-52) % Plt Count 433 H (130-400) K/uL BMP 03/27/21 10:29 Sodium 137 Potassium 4.8 Chloride 100 Carbon Dioxide 24 BUN 36 H Creatinine 4.69 H* D Glucose 162 H Calcium 8.1 L Medications Administered Current Inpatient Medications Acetaminophen (Acetaminophen 325 Mg Tab) 650 mg PO Q4H PRN PRN Reason: pain Stop: 04/23/21 05:35 Last Admin: 03/26/21 20:03 Dose: 650 mg Documented by: Amlodipine Besylate (Amlodipine Besylate 5 Mg Tab) 5 mg PO QAM [facility] Stop: 04/23/21 08:59 Last Admin: 03/27/21 08:29 Dose: 5 mg Documented by: Benzonatate (Benzonatate 100 Mg Capsule) 100 mg PO TID PRN PRN Reason: Cough Stop: 04/23/21 05:35 Cyclobenzaprine HCl (Cyclobenzaprine Hcl 10 Mg Tab) 10 mg PO HS [facility] Stop: 04/23/21 20:59 Last Admin: 03/26/21 20:03 Dose: 10 mg Documented by: Dextrose (Dextrose 50% 50 Ml Syringe) 25 - 50 ml IV UD PRN; Protocol PRN Reason: Hypoglycemia Protocol Stop: 04/23/21 05:35 Glucagon (Glucagon For Inj 1 Mg Vial) 1 mg SQ UD PRN; Protocol PRN Reason: Hypoglycemia Protocol Stop: 04/23/21 05:35 Glucose (Glucose 10 Tabs/Tube) 4 - 8 tabs PO UD PRN; Protocol PRN Reason: Hypoglycemia Protocol Stop: 04/23/21 05:35 Glucose (Glucose 40% Gel 15 Gm Tube) 15 - 30 gm PO UD PRN; Protocol PRN Reason: Hypoglycemia Protocol Stop: 04/23/21 05:35 Heparin Sodium (Porcine) (Heparin Sod 5,000 Unit/0.5 Ml Vial) 5,000 units SQ BID [facility] Stop: 04/23/21 20:59 Last Admin: 03/27/21 09:04 Dose: Not Given Documented by: Promethazine HCl 12.5 mg/ (Sodium Chloride) 50.5 mls @ 202 mls/hr IV Q6H PRN PRN Reason: Nausea And Vomiting Stop: 04/23/21 05:35 Insulin Aspart (Insulin Aspart Per Unit) 0 units SC ACHS [facility] Stop: 04/23/21 07:29 Last Admin: 03/27/21 13:23 Dose: 1 units Documented by: Insulin Glargine (Insulin Glargine Solostar 100 Units/Ml 3 Ml Pen) 5 units SC DAILY [facility] Stop: 04/23/21 08:59 Last Admin: 03/27/21 09:46 Dose: 5 units Documented by: Ipratropium [place] (Ipratropium [place] Neb Soln 0.02% 2.5 Ml Vial) 0.5 mg INH Q4H PRN PRN Reason: SOB/WHEEZING Stop: 04/23/21 05:35 Levalbuterol HCl (Levalbuterol 1.25mg/0.5ml Neb) 1.25 mg INH Q4H PRN PRN Reason: SOB/WHEEZING Stop: 04/23/21 05:35 Levothyroxine Sodium (Levothyroxine Sodium 125 Mcg Tablet) 125 mcg PO DAILYBB [facility] Stop: 04/23/21 07:29 Last Admin: 03/27/21 05:49 Dose: 125 mcg Documented by: Lidocaine (Lidocaine 5% 1 Patch) 1 patch TD QAM [facility] Stop: 04/23/21 08:59 Last Admin: 03/27/21 09:04 Dose: Not Given Documented by: Metoprolol Tartrate (Metoprolol Tartrate 50 Mg Tab) 50 mg PO BID [facility] Stop: 04/23/21 08:59 Last Admin: 03/27/21 08:29 Dose: 50 mg Documented by: Miscellaneous (Remove Lidoderm Patch) 1 ea N/A DAILY@2100 [facility] Stop: 04/23/21 20:59 Last Admin: 03/26/21 20:04 Dose: 1 ea Documented by: Miscellaneous (Carbohydrates For Hypoglycemia ) 15 - 30 gm PO UD PRN PRN Reason: Hypoglycemia Protocol Stop: 04/23/21 05:35 Multivitamins/Minerals (Cerovite Adv Formula Tab) 1 tab PO DAILY [facility] Stop: 04/23/21 08:59 Last Admin: 03/27/21 08:29 Dose: 1 tab Documented by: Nitroglycerin (Nitroglycerin Sl 0.4 Mg/Tab Tab) 0.4 mg SL UD PRN PRN Reason: Chest Pain Stop: 04/23/21 05:35 Ropinirole HCl (Ropinirole Hcl 1 Mg Tablet) 1 mg PO DAILY [facility] Stop: 04/23/21 08:59 Last Admin: 03/27/21 08:29 Dose: 1 mg Documented by: Sevelamer HCl (Sevelamer Hcl 800 Mg Tablet) 2,400 mg PO TIDM [facility] Stop: 04/23/21 07:59 Last Admin: 03/27/21 13:22 Dose: 2,400 mg Documented by: Thiamine HCl (Thiamine Hcl 100 Mg Tab) 100 mg PO QAM [facility] Stop: 03/30/21 09:01 Last Admin: 03/27/21 08:29 Dose: 100 mg Documented by: Tramadol HCl (Tramadol Hcl 50 Mg Tablet) 25 - 50 mg PO Q4H PRN PRN Reason: Pain Stop: 04/23/21 05:35 Umeclidinium/Vilanterol (Umeclidinium/Vilanterol 62.5/25mcg 7 Puffs/Inhaler) 1 puffs INH DAILY [facility] Stop: 04/23/21 08:59 Last Admin: 03/27/21 08:29 Dose: 1 puffs Documented by:
[2021-03-27 17:08] VITALS: BP 132/72; PULSE 71; TEMP 98.6; O2SAT 98
[2021-03-28] MEDS ORDERED: SODIUM CHLORIDE 0.9% 1000ML 1,000 ML IV PRN (07:40)
[2021-03-28] MEDS ORDERED: HEPARIN SOD (PORCINE) 1000 UNIT/ML IV SCH ×2 (08:00)
[2021-03-28] MEDS ORDERED: EPOETIN ALFA 10,000 UNITS/ML VIAL IV SCH (08:00)
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
== END 2021-03-27 16:24 | disposition home health service (06) | DRG 291 ==
LOC: ED 00:20 → EDINP 04:34 → SUATTDRO 04:34 → EDINP 05:48

== ENCOUNTER 2021-11-24 02:58 | Inpatient (IN) ==
[2021-11-24] MEDS ORDERED: methylPREDNISolone 125 MG/2 ML VIAL IV STA (03:11)
[2021-11-24] MEDS ORDERED: ALBUT/IPRATROP 3MG/0.5MG NEB 3 ML VIAL NEB ONE (03:11)
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
[2021-11-24 03:45] LABS: Hematocrit (blood only) 32.8 % (40.1-51.0); Mean Corpuscular Hemoglobin 28.6 pg (25.0-34.0); Mean Corpuscular Hgb Conc 33.5 g/dL (32.0-36.0); Mean Corpuscular Volume 85.2 fL (80.0-100.0); Mean Platelet Volume 10.4 fL (9.4-12.4); Platelet Count 332 K/uL (130-400); RDW Coefficient of Variation 15.2 % (11.5-14.5); RDW Standard Deviation 46.9 fL (36.4-46.3); Red Blood Count 3.85 M/uL (4.63-6.08); White Blood Count 14.96 K/ul (4.8-10.8)
[2021-11-24] MEDS ORDERED: PIPERACILLIN/TAZOBACTAM 4.5 GM/120 ML BAG IV ONE (03:56)
[2021-11-24 04:06] LABS: Basophils # (auto) 0.02 K/uL (0-0.2); Basophils % (auto) 0.1 %; Immature Granulocytes % (auto) 0.7 %; Lymphocytes # (auto) 0.22 K/uL (1.2-3.4); Lymphocytes % (auto) 1.5 %; Monocytes # (auto) 0.66 K/uL (0.24-0.82); Monocytes % (auto) 4.4 %; Neutrophils # (auto) 13.96 K/uL (1.4-6.5); Neutrophils % (auto) 93.3 %; Ovalocytes 1+
[2021-11-24 04:13] LABS: Influenza A virus by PCR Negative (Neg); Influenza B virus by PCR Negative (Neg); RSV by PCR Negative (Neg); SARS CoV2 RNA(COVID-19)Cepheid NEGATIVE (Negative)
[2021-11-24 04:22] LABS: Albumin Globulin Ratio 1.3 (0.9-2); Albumin Level 3.9 gm/dl (3.4-5.0); BUN Creatinine Ratio 6.8 (10-20); Bilirubin,Total 0.6 mg/dl (0.2-1.0); Calcium 8.5 mg/dl (8.5-10.1); Est GFR (African American) 9.7 ml/min; Est GFR (Non-African American) 8.3 ml/min; Magnesium 2.3 mg/dl (1.7-2.4); Potassium 4.5 mmol/L (3.5-5.1); Total Protein 6.9 gm/dl (6.0-8.3)
--- NOTE | 2021-11-24 05:11 | Emergency Department Note ---
ED Visit Note I was consulted by the Advanced Practice Provider. I saw the patient personally and performed a substantive portion of the visit. This includes aspects of the HPI, MDM, diagnostic interpretations, and disposition/plan. . : Acute respiratory failure Qualifiers: Respiratory failure complication: hypoxia Qualified Code(s): J96.01 - Acute respiratory failure with hypoxia
[2021-11-24] MEDS ORDERED: ALBUTEROL HFA 8 GM INHALER INH PRN (06:33)
[2021-11-24] MEDS ORDERED: CYCLOBENZAPRINE HCL 10 MG TAB PO PRN (06:33)
[2021-11-24] MEDS ORDERED: ACETAMINOPHEN 325 MG TAB PO PRN (06:33)
[2021-11-24] MEDS ORDERED: NITROGLYCERIN SL 0.4 MG/TAB TAB SL PRN (06:33)
[2021-11-24] MEDS ORDERED: DOXYCYCLINE HYCLATE 100 MG in DEXTROSE 5% 100 ML IV SCH (07:00)
[2021-11-24] MEDS ORDERED: XOPENEX/ATROVENT 1.25mg/0.5MG NEB COMBO NEB SCH (07:00)
[2021-11-24] MEDS ORDERED: GLUCOSE 10 TAB/TUBE PO PRN (07:15)
[2021-11-24] MEDS ORDERED: DEXTROSE 50% 50 ML SYRINGE IV PRN (07:15)
[2021-11-24] MEDS ORDERED: GLUCAGON FOR INJ 1 MG VIAL IM PRN (07:15)
[2021-11-24] MEDS ORDERED: GLUCOSE 40% GEL 15 GM TUBE PO PRN (07:15)
[2021-11-24] MEDS ORDERED: CARBOHYDRATES FOR HYPOGLYCEMIA PO PRN (07:15)
[2021-11-24] MEDS: LEVALBUTEROL 1.25MG/0.5ML NEB INH SCH ×2 (07:33→12:26)
[2021-11-24] MEDS: IPRATROPIUM BROMIDE NEB SOLN 0.02% 2.5 ML VIAL INH SCH ×2 (07:33→12:26)
--- NOTE | 2021-11-24 08:29 | Electrocardiogram Report ---
Test Reason : Blood Pressure : / mmHG Vent. Rate : 097 BPM Atrial Rate : 097 BPM P-R Int : 176 ms QRS Dur : 088 ms QT Int : 366 ms P-R-T Axes : 060 013 076 degrees QTc Int : 464 ms Poor data quality, interpretation may be adversely affected Normal sinus rhythm Abnormal ECG When compared with ECG of 24-MAR-2021 02:44, No significant change Confirmed by Fred Martínez ([id number]) on 11/24/2021 8:29:25 AM Referred By: REFERRED SELF Confirmed By:Fred Martínez
--- NOTE | 2021-11-24 08:43 | CT Scan Report ---
ABDOMEN AND PELVIS CT WITHOUT CONTRAST CT DOSE: HISTORY: Generalized abdominal pain. recent colitis TECHNIQUE: Multiaxial CT images of the abdomen and pelvis were performed without contrast. A dose lo wering technique was utilized adhering to the principles of ALARA. COMPARISON STUDY: Abdomen and pelvis CT 11/12/2021. FINDINGS: Please refer to the same day chest CT for further evaluation of the lung bases and bilatera l pleural effusions. These have slightly increased in size. There is a small pericardial effusion, un changed. Interlobular septal thickening likely representing pulmonary edema. No pneumoperitoneum. No pneumatosis. Bilateral L5 spondylolysis with associated anterolisthesis. No acute fractures identifie d. No hepatic or splenic masses. Stable 1.9 cm left adrenal gland nodule. The pancreas and gallbladde r are unremarkable. The kidneys are atrophic. There is a punctate stone within the left kidney. Stabl e left renal hyperdense and hypodense lesions measuring up to 1.4 cm. No retroperitoneal lymphadenopa thy. Advanced calcified plaque within the arterial structures. Bladder wall thickening with adjacent fat stranding, unchanged. No pelvic free fluid. Colonic diverticulosis. No evidence for acute diverti culitis. Suboptimal evaluation for bowel pathology due to the lack of intravenous and oral contrast. However, there is no definite bowel wall thickening or obstruction. Normal appendix. IMPRESSION: 1. Suboptimal evaluation for bowel pathology due to the lack of intravenous and oral contrast. Howeve r, there is no definite bowel wall thickening or obstruction. 2. Colonic diverticulosis. No evidence for acute diverticulitis. 3. Please refer to the same day chest CT for further evaluation of the bilateral pleural effusions, p ericardial effusion, and suspected pulmonary edema. 4. Bladder wall thickening, unchanged. This may represent a cystitis. 5. Additional findings as described above. ACT 112: Negative or not required by law. Electronically signed by: Burke Jaimes M.D. 11/24/2021 8:41 AM
--- NOTE | 2021-11-24 08:44 | CT Scan Report ---
CT chest diagnostic wo con CT DOSE: 1265.53 mGy.cm CLINICAL HISTORY: 71 years-old Male with pleural effusion, lung cancer. Follow-up study in a patient with pleural effusions and history of lung cancer. TECHNIQUE: Multiaxial CT images of the chest were performed without contrast. A dose lowering techni que was utilized adhering to the principles of ALARA. COMPARISON: Chest CT 10/29/2021, CT abdomen and pelvis 11/12/2021. FINDINGS: No thyroid nodule. Mild cardiomegaly. Small to moderate pericardial effusion is unchanged. Advanced coronary artery and atherosclerotic plaque. Descending thoracic aortic tortuosity. Pathologi clara enlarged mediastinal lymph nodes are redemonstrated. There is an index right paratracheal lymph node on image 40 series 4 measuring 3.5 x 1.7 cm, previously 3.3 x 1.9 cm. Subcarinal adenopathy catherine sures up to 3.2 x 2.1 cm, stable. There is no evidence of new or progressive lymphadenopathy of the c hest. A small left pleural effusion is new. Moderate to large right pleural effusion has increased in size. Right lung volume loss with right basilar consolidation. Intralobular septal thickening with intermi xed groundglass opacities. Spiculated lesion of the anterior segment right upper lobe on image 114 se tony 4 measures 3.2 x 2.4 cm, previously 2.9 x 1.8 cm. Spiculated 2.0 cm nodule within the right uppe r lobe adjacent to the minor fissure is similar in size to the prior study. 7 mm solid nodule of the left lower lobe on image 171 appears stable. 3 mm nodule of the left lower lobe on image 194 appears stable. 4 mm nodule of the left upper lobe on image 62 previously measured 3 mm. Azygos lobe and fiss ure. Atrophic kidneys. Indeterminate intermediate attenuating lesions of the left kidney are again noted. Scattered calcifications are again noted throughout the liver. Mild generalized body wall edema. Gyne comastia. Degenerative changes of the shoulders and spine. IMPRESSION: 1. Cardiomegaly with interstitial pulmonary edema, small left and moderate to large right pleural eff usions. 2. Dependent consolidation of the right lung base suggests compressive atelectasis. 3. Bilateral groundglass opacities, notably within the left upper lobe are suggestive of alveolar pul monary edema. A superimposed pneumonia could appear similarly. 4. 3.2 x 2.4 cm spiculated mass of the anterior segment right upper lobe has increased in size from t he prior study. 5. 2.0 cm irregular nodule of the right upper lobe adjacent to the minor fissure appears stable. 6. Stable pathologic lymphadenopathy. 7. Subcentimeter bilateral pulmonary nodules are redemonstrated. 8. Please refer to the CT abdomen and pelvis study of same day for additional findings. ACT 112: Negative or not required by law. Dictated: 11/24/2021 7:20 AM Transcribed: 11/24/2021 7:41 AM Erin [id number] [email or web address] Electronically signed by: Pancho Hu M.D. 11/24/2021 8:43 AM
[2021-11-24 08:53] LABS: Prothrombin Time 10.9 Seconds (9.0-12.0)
--- NOTE | 2021-11-24 09:08 | XRay Report ---
XR chest 1V portable HISTORY: Shortness of breath. Atypical Chest Pain COMPARISON: Chest 03/24/2021. FINDINGS: No pneumothorax. The heart remains enlarged. There is moderate interstitial pulmonary edema with a moderate right and small left pleural effusions. These have progressed in the interval. Right perihilar airspace opacity may represent atelectasis or a superimposed pneumonia. The patient's know n pulmonary nodules are better appreciated on the prior CT examinations. Surgical clips again noted w ithin the neck. IMPRESSION: Interval progression of pulmonary edema and bilateral pleural effusions. ACT 112: Negative or not required by law. Electronically signed by: Burke Jaimes M.D. 11/24/2021 9:06 AM
[2021-11-24] MEDS: METOPROLOL TARTRATE 100 MG TAB PO SCH (09:10)
[2021-11-24] MEDS: SEVELAMER HCL 800 MG TABLET PO SCH ×3 (09:10→16:55)
[2021-11-24] MEDS: busPIRone 5 MG TAB PO SCH ×2 (09:10→20:11)
[2021-11-24] MEDS: amLODIPine BESYLATE 5 MG TAB PO SCH (09:10)
[2021-11-24] MEDS: MULTIVITAMIN TAB PO SCH (09:11)
[2021-11-24] MEDS: PSYLLIUM or GUAR GUM FIBER POWDER PACKET PO SCH ×2 (09:11→20:14)
[2021-11-24] MEDS: rOPINIRole HCL 1 MG TABLET PO SCH (09:11)
[2021-11-24] MEDS: ATORVASTATIN 40 MG TAB PO SCH (09:11)
[2021-11-24] MEDS: LEVOTHYROXINE SODIUM 137 MCG TABLET PO SCH (09:11)
[2021-11-24] MEDS: HEPARIN SOD 5,000 UNIT/0.5 ML VIAL SQ SCH ×3 (09:12→23:51)
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
[2021-11-24 10:26] LABS: Amylase Pleural Fluid 16 U/L; Glucose Pleural Fluid 277 mg/dl; LDH Pleural Fluid 97 U/L
[2021-11-24 10:27] LABS: Bilirubin,Total 0.6 mg/dl (0.2-1.0); Total Protein 6.8 gm/dl (6.0-8.3)
--- NOTE | 2021-11-24 10:45 | XRay Report ---
XR chest 1V portable HISTORY: 71 years-old Male S/P Thoracentesis follow-up study in a patient with right pleural effusio n. Status post thoracentesis COMPARISON: Chest CT of same day TECHNIQUE: AP view of the chest FINDINGS: Cardiac silhouette is enlarged. Pulmonary vascular congestion with interstitial coarsening and pulmon kelley emphysema. Right greater than left pleural effusions. There is decreased size of the right pleura l effusion status post thoracentesis. No postprocedural pneumothorax. Irregular linear opacity throug hout the right lung redemonstrated.. Surgical clips of the neck. Bones appear grossly intact. IMPRESSION: 1. Decreased size of the right pleural effusion status post thoracentesis. No postprocedural pneumoth orax identified. 2. Additional findings of the chest are better characterized on the same day chest CT. ACT 112: Negative or not required by law. The above report was generated using voice recognition software. It may contain grammatical, syntax o r spelling errors. Electronically signed by: Pancho Hu M.D. 11/24/2021 10:44 AM
--- NOTE | 2021-11-24 10:52 | Procedure Note ---
Procedure Note Date of Service November 24, 2021 Note Procedure: Diagnostic and/or therapeutic ultrasound-guided catheter thoracentesis Gaming Host: Dr. Victor Hugo Walker Indication: Pleural effusion Consent: Signed by patient and verified with timeout prior to procedure Anesthesia: 8 mL's of 1% lidocaine without epinephrine given locally Procedure: Consent was verified and timeout performed. Appropriate imaging studies were reviewed prior to the procedure. Patient was placed in a seated position and limited thoracic ultrasound was performed of the right lateral chest. See separate imaging. The site appropriate for thoracentesis was selected. The skin was prepped and draped in normal sterile fashion. Lidocaine was used for local analgesia. Fluid was aspirated via the finder needle. A small skin rosales was made with the scalpel and the catheter over the needle apparatus was advanced over the rib into the pleural space. Using the syringe one-way valve system, a total of 1.7 L serosanguineous fluid was removed. Procedure was terminated due to lack of flow. The catheter was removed and observed to be intact. A sterile dressing was applied. Post procedure chest x-ray was ordered. Fluid was sent for LDH, total protein, cell count, glucose, pH, cytology, AFB c ultures, gram stain and culture and fungal cultures. The patient tolerated the procedure well without obvious complication. Coding CPT Codes Pulmonary/Thoracic - Pulmonary and Thoracic: 44737 Thoracentesis w imaging ([id number]) [facility] [place] Procedure Codes (Charges) Pulmonary/Thoracic Procedure 1: Pulmonary and Thoracic: 82827 Thoracentesis w imaging
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
[2021-11-24 11:42] LABS: Appearance Pleural Fluid Cloudy; Color Pleural Fluid Amber; Lymphocytes, Fluid 4 %; Mono,Macrophage,Mesothelial 78 %; Neutrophils, Fluid 18 %; RBC Pleural Fluid (A) 9000 /uL; Source Pleural Fluid Right Lung; WBC Pleural Fluid (A) 380 /uL
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
[2021-11-24] MEDS ORDERED: methylPREDNISolone 40 MG in SYRINGE 0 ML IV SCH (12:00)
[2021-11-24] MEDS ORDERED: PIPERACILLIN/TAZOBACTAM 4.5 GM in DEXTROSE 5% 100 ML IV SCH (12:00)
[2021-11-24] MEDS ORDERED: Nursing to Pharmacy Communication SCH (16:15)
--- NOTE | 2021-11-24 17:12 | Communication Note ---
Date of Service: November 24, 2021 It was a pleasure taking care of you! Please call if you have any questions or problems. You can reach a [facility] hospitalist on duty at [facility] 24 hours a day by calling [phone]. Take care of yourself. Emily Rodriguez, [facility]
--- NOTE | 2021-11-24 17:40 | Hospitalist Progress Note ---
Date of Service November 24, 2021 Assessment & Plan (1) Fluid overload: Plan: Fluid overload secondary to increased coffee intake over the weekend. Patient notably has gained 7.5 kg per nephrology. He has improved after thoracentesis this morning and is going for hemodialysis with ultrafiltration today. He initially presented requiring BiPAP and has been able to wean down to nasal cannula oxygen supplementation. He is in no acute distress. There does not appear to be any underlying infection and he has had no symptoms of such. We will stop IV Solu-Medrol and IV Zosyn which will only add to volume issues and will cause hyperglycemia unnecessarily. (2) ESRD on hemodialysis: Plan: Hemodialysis per nephrology settings. (3) Pleural effusion, right: Plan: Patient has known history of lung adenocarcinoma with metastatic disease to the mediastinal lymph nodes. Thoracentesis this morning yielded 1.7 L of serosanguineous fluid which appears to be an exudate. Pleural pH and glucose were not consistent with an infectious etiology, suspect malignant effusion. This underscores why we will stop the antibiotics and steroids at this time. Continue to monitor for postprocedure reexpansion pulmonary edema. (4) Metastatic adenocarcinoma: Plan: Known history of metastatic adenocarcinoma of the lung with mets to the mediastinum. Defer to pulmonology for indwelling Pleurx catheter for malignant effusion. (5) Tobacco dependence syndrome: Plan: Smoking cessation recommended. (6) DMII (diabetes mellitus, type 2): Plan: Patient adamantly denies that he has diabetes type 2 myelitis. He states he has an A1c of 5.5 which is not true. His last hemoglobin A1c was 7.6 in February 2021. Inpatient and outpatient records were reviewed. At this time he has declined any blood sugar glucose checks, however, hyperglycemia is a concern in the setting of recent steroids that were given. We will stop steroids at this time and will monitor daily BMP. May be able to check blood sugar glucose once this evening to ensure we catch hyperglycemia if it is evolving. Patient reports that he is diet controlled. (7) DVT prophylaxis: Plan: Heparin Full code Disposition-pending PT/OT recommendations. Emily Rodriguez DO [facility] Hospitalist Admission and Anticipated Discharge Date Admission Date: November 24, 2021 Subjective 71-year-old man with end-stage renal disease on hemodialysis presents with shortness of breath secondary to fluid overload. Per nephrology he has gained 7.5 kg over the weekend secondary to excessive coffee intake. He also has a pleural effusion and underwent thoracentesis this morning. He is significantly better post thoracentesis and is heading to dialysis now. Denies any pain. He is adamant about changing his diet and that he is not a diabetic. He declines any blood sugar checks at this time. Review of Systems Review of Systems: All systems reviewed negative except as indicated above. Physical Exam Physical Exam: CONSTITUTIONAL: WNWD, vitals as above, generally well- appearing, NAD EYES: normal conjunctivae, no scleral icterus ENT: external ear and nose normal, MMM NECK: trachea midline RESPIRATORY: clear to auscultation bilaterally with decreased breath sounds at bases bilaterally, no crackles, rales or wheezes, normal respiratory effort CARDIOVASCULAR: regular rate and rhythm, S1 and 2 heard without murmurs, gallops or rubs, no JVD, no peripheral edema CHEST: inspection of chest was normal GASTROINTESTINAL: soft, nontender, ND, no guarding MUSCULOSKELETAL: strength 5/5 throughout, head is normocephalic and atraumatic SKIN: warm and dry NEUROLOGIC: CN 2-12 grossly intact, no sensory deficit, normal cognition, normal speech, no tremor PSYCHIATRIC: alert cooperative and oriented to person, place and time. Results & Data Results & Data ([facility]) Vital Signs (Past 12 Hours) Vital Signs Temp Pulse Pulse Pulse Resp BP BP 11/24/21 17:11 36.5 C 81 18 139/73 11/24/21 15:00 84 11/24/21 14:35 36.5 C 83 159/87 H 11/24/21 14:00 79 155/78 H 11/24/21 13:30 78 156/84 H 11/24/21 13:00 79 148/85 H 11/24/21 12:30 79 149/82 H 11/24/21 09:00 11/24/21 07:00 89 11/24/21 12:00 82 146/84 H 11/24/21 11:30 78 158/86 H 11/24/21 11:00 73 143/78 H 11/24/21 10:43 36.5 C 78 11/24/21 09:22 89 18 165/82 H 11/24/21 09:07 90 20 149/76 H 11/24/21 06:36 36.5 C 91 H 16 164/79 H 11/24/21 06:36 11/24/21 06:28 27 H Pulse Ox O2 Del Method O2 Flow Rate FiO2 11/24/21 17:11 94 Room Air 11/24/21 15:00 11/24/21 14:35 11/24/21 14:00 11/24/21 13:30 11/24/21 13:00 11/24/21 12:30 11/24/21 09:00 Nasal Cannula 11/24/21 07:00 11/24/21 12:00 11/24/21 11:30 11/24/21 11:00 11/24/21 10:43 11/24/21 09:22 98 Nasal Cannula 2 11/24/21 09:07 96 Nasal Cannula 4 11/24/21 06:36 95 Room Air 11/24/21 06:36 BiPAP 11/24/21 06:28 95 40 Laboratory Results Short CBC 11/24/21 Range/Units 03:34 WBC 14.96 H (4.8-10.8) K/ul Hgb 11.0 L (14.0-18.0) g/dl Hct 32.8 L (40.1-51.0) % Plt Count 332 (130-400) K/uL BMP 11/24/21 03:34 Sodium 135 L Potassium 4.5 Chloride 95 L Carbon Dioxide 28 BUN 42 H Creatinine 6.15 H* Glucose 232 H Calcium 8.5 Liver Function 11/24/21 11/24/21 Range/Units 03:34 09:41 Total Bilirubin 0.6 0.6 (0.2-1.0) mg/dl AST 30 (13-39) U/L ALT 17 (7-52) U/L Alkaline Phosphatase 83 (34-104) U/L Albumin 3.9 (3.4-5.0) gm/dl Diagnostic Findings Chest X-Ray 11/24/21 03:11 XR chest 1V portable HISTORY: Shortness of breath. Atypical Chest Pain COMPARISON: Chest 03/24/2021. FINDINGS: No pneumothorax. The heart remains enlarged. There is moderate interstitial pulmonary edema with a moderate right and small left pleural effusions. These have progressed in the interval. Right perihilar airspace opacity may represent atelectasis or a superimposed pneumonia. The patient's known pulmonary nodules are better appreciated on the prior CT examinations. Surgical clips again noted within the neck. IMPRESSION: Interval progression of pulmonary edema and bilateral pleural effusions. ACT 112: Negative or not required by law. Electronically signed by: Burke Jaimes M.D. 11/24/2021 9:06 AM Abdomen/Pelvis CT 11/24/21 05:[address] WITHOUT CONTRAST CT DOSE: HISTORY: Generalized abdominal pain. recent colitis TECHNIQUE: Multiaxial CT images of the abdomen and pelvis were performed without contrast. A dose lowering technique was utilized adhering to the principles of ALARA. COMPARISON STUDY: Abdomen and pelvis CT 11/12/2021. FINDINGS: Please refer to the same day chest CT for further evaluation of the lung bases and bilateral pleural effusions. These have slightly increased in size. There is a small pericardial effusion, unchanged. Interlobular septal thickening likely representing pulmonary edema. No pneumoperitoneum. No pneumatosis. Bilateral L5 spondylolysis with associated anterolisthesis. No acute fractures identified. No hepatic or splenic masses. Stable 1.9 cm left adrenal gland nodule. The pancreas and gallbladder are unremarkable. The kidneys are atrophic. There is a punctate stone within the left kidney. Stable left renal hyperdense and hypodense lesions measuring up to 1.4 cm. No retroperitoneal lymphadenopathy. Advanced calcified plaque within the arterial structures. Bladder wall thickening with adjacent fat stranding, unchanged. No pelvic free fluid. Colonic diverticulosis. No evidence for acute diverticulitis. Suboptimal evaluation for bowel pathology due to the lack of intravenous and oral contrast. However, there is no definite bowel wall thickening or obstruction. Normal appendix. IMPRESSION: 1. Suboptimal evaluation for bowel pathology due to the lack of intravenous and oral contrast. However, there is no definite bowel wall thickening or obstruction. 2. Colonic diverticulosis. No evidence for acute diverticulitis. 3. Please refer to the same day chest CT for further evaluation of the bilateral pleural effusions, pericardial effusion, and suspected pulmonary edema. 4. Bladder wall thickening, unchanged. This may represent a cystitis. 5. Additional findings as described above. ACT 112: Negative or not required by law. Electronically signed by: Burke Jaimes M.D. 11/24/2021 8:[address] 11/24/21 05:07 CT chest diagnostic wo con CT DOSE: 1265.53 mGy.cm CLINICAL HISTORY: 71 years-old Male with pleural effusion, lung cancer. Follow- up study in a patient with pleural effusions and history of lung cancer. TECHNIQUE: Multiaxial CT images of the chest were performed without contrast. A dose lowering technique was utilized adhering to the principles of ALARA. COMPARISON: Chest CT 10/29/2021, CT abdomen and pelvis 11/12/2021. FINDINGS: No thyroid nodule. Mild cardiomegaly. Small to moderate pericardial effusion is unchanged. Advanced coronary artery and atherosclerotic plaque. Descending thoracic aortic tortuosity. Pathologically enlarged mediastinal lymph nodes are redemonstrated. There is an index right paratracheal lymph node on image 40 series 4 measuring 3.5 x 1.7 cm, previously 3.3 x 1.9 cm. Subcarinal adenopathy measures up to 3.2 x 2.1 cm, stable. There is no evidence of new or progressive lymphadenopathy of the chest. A small left pleural effusion is new. Moderate to large right pleural effusion has increased in size. Right lung volume loss with right basilar consolidation. Intralobular septal thickening with intermixed groundglass opacities. Spiculated lesion of the anterior segment right upper lobe on image 114 series 4 measures 3.2 x 2.4 cm, previously 2.9 x 1.8 cm. Spiculated 2.0 cm nodule within the right upper lobe adjacent to the minor fissure is similar in size to the prior study. 7 mm solid nodule of the left lower lobe on image 171 appears stable. 3 mm nodule of the left lower lobe on image 194 appears stable. 4 mm nodule of the left upper lobe on image 62 previously measured 3 mm. Azygos lobe and fissure. Atrophic kidneys. Indeterminate intermediate attenuating lesions of the left kidney are again noted. Scattered calcifications are again noted throughout the liver. Mild generalized body wall edema. Gynecomastia. Degenerative changes of the shoulders and spine. IMPRESSION: 1. Cardiomegaly with interstitial pulmonary edema, small left and moderate to large right pleural effusions. 2. Dependent consolidation of the right lung base suggests compressive atelectasis. 3. Bilateral groundglass opacities, notably within the left upper lobe are suggestive of alveolar pulmonary edema. A superimposed pneumonia could appear similarly. 4. 3.2 x 2.4 cm spiculated mass of the anterior segment right upper lobe has increased in size from the prior study. 5. 2.0 cm irregular nodule of the right upper lobe adjacent to the minor fissure appears stable. 6. Stable pathologic lymphadenopathy. 7. Subcentimeter bilateral pulmonary nodules are redemonstrated. 8. Please refer to the CT abdomen and pelvis study of same day for additional findings. ACT 112: Negative or not required by law. Dictated: 11/24/2021 7:20 AM Transcribed: 11/24/2021 7:41 AM Erin [id number] [email or web address] Electronically signed by: Pancho Hu M.D. 11/24/2021 8:43 AM Chest X-Ray 11/24/21 09:16 XR chest 1V portable HISTORY: 71 years-old Male S/P Thoracentesis follow-up study in a patient with right pleural effusion. Status post thoracentesis COMPARISON: Chest CT of same day TECHNIQUE: AP view of the chest FINDINGS: Cardiac silhouette is enlarged. Pulmonary vascular congestion with interstitial coarsening and pulmonary emphysema. Right greater than left pleural effusions. There is decreased size of the right pleural effusion status post thoracentesis. No postprocedural pneumothorax. Irregular linear opacity throughout the right lung redemonstrated.. Surgical clips of the neck. Bones appear grossly intact. IMPRESSION: 1. Decreased size of the right pleural effusion status post thoracentesis. No postprocedural pneumothorax identified. 2. Additional findings of the chest are better characterized on the same day chest CT. ACT 112: Negative or not required by law. The above report was generated using voice recognition software. It may contain grammatical, syntax or spelling errors. Electronically signed by: Pancho Hu M.D. 11/24/2021 10:44 AM Medications Administered Current Inpatient Medications Acetaminophen (Acetaminophen 325 Mg Tab) 650 mg PO Q4H PRN PRN Reason: Pain or Fever Stop: 12/24/21 06:32 Albuterol (Albuterol Hfa 8 Gm Inhaler) 2 puffs INH Q6H PRN PRN Reason: Cough Stop: 12/24/21 06:32 Amlodipine Besylate (Amlodipine Besylate 5 Mg Tab) 5 mg PO QAM RAFAELA Stop: 12/24/21 08:59 Last Admin: 11/24/21 09:10 Dose: 5 mg Atorvastatin Calcium (Atorvastatin 40 Mg Tab) 40 mg PO QAM RAFAELA Stop: 12/24/21 08:59 Last Admin: 11/24/21 09:11 Dose: 40 mg Buspirone HCl (Buspirone 5 Mg Tab) 2.5 mg PO BID RAFAELA Stop: 12/24/21 08:59 Last Admin: 11/24/21 09:10 Dose: 2.5 mg Cyclobenzaprine HCl (Cyclobenzaprine Hcl 10 Mg Tab) 10 mg PO HS PRN PRN Reason: Pain Stop: 12/24/21 06:32 Dextrose (Dextrose 50% 50 Ml Syringe) 25 - 50 ml IV UD PRN; Protocol PRN Reason: Hypoglycemia Protocol Stop: 12/24/21 07:14 Glucagon (Glucagon For Inj 1 Mg Vial) 1 mg IM UD PRN; Protocol PRN Reason: Hypoglycemia Protocol Stop: 12/24/21 07:14 Glucose (Glucose 40% Gel 15 Gm Tube) 15 - 30 gm PO UD PRN; Protocol PRN Reason: Hypoglycemia Protocol Stop: 12/24/21 07:14 Glucose (Glucose 10 Tab/Tube) 4 - 8 tab PO UD PRN; Protocol PRN Reason: Hypoglycemia Protocol Stop: 12/24/21 07:14 Heparin Sodium (Porcine) (Heparin Sod 5,000 Unit/0.5 Ml Vial) 5,000 units SQ Q8H RAFAELA Stop: 12/24/21 07:59 Last Admin: 11/24/21 16:29 Dose: Not Given Doxycycline Hyclate 100 mg/ (Dextrose) 110 mls @ 50 mls/hr IV Q12H [facility] Stop: 12/01/21 06:59 Last Infusion: 11/24/21 15:14 Dose: Infused Piperacillin Sod/Tazobactam (Sod 4.5 gm/ Dextrose) 120 mls @ 30 mls/hr IV Q12H [facility]; Protocol Stop: 12/01/21 11:59 Last Admin: 11/24/21 16:54 Dose: 30 mls/hr Methylprednisolone 40 mg/ (Syringe) 0.64 mls @ 1.5 mls/min IV Q8H [facility] Stop: 12/24/21 11:59 Last Admin: 11/24/21 16:54 Dose: 1.5 mls/min Ipratropium [place] (Ipratropium [place] Neb Soln 0.02% 2.5 Ml Vial) 0.5 mg INH Q6R RAFAELA Stop: 12/24/21 06:59 Last Admin: 11/24/21 12:26 Dose: Not Given Levalbuterol HCl (Levalbuterol 1.25mg/0.5ml Neb) 1.25 mg INH Q6R RAFAELA Stop: 12/24/21 06:59 Last Admin: 11/24/21 12:26 Dose: Not Given Levothyroxine Sodium (Levothyroxine Sodium 137 Mcg Tablet) 137 mcg PO DAILYBB RAFAELA Stop: 12/24/21 06:59 Last Admin: 11/24/21 09:11 Dose: 137 mcg Metoprolol Tartrate (Metoprolol Tartrate 50 Mg Tab) 50 mg PO PM RAFAELA Stop: 12/24/21 20:59 Metoprolol Tartrate (Metoprolol Tartrate 100 Mg Tab) 100 mg PO DAILY RAFAELA Stop: 12/24/21 08:59 Last Admin: 11/24/21 09:10 Dose: 100 mg Miscellaneous (Carbohydrates For Hypoglycemia ) 15 - 30 gm PO UD PRN PRN Reason: Hypoglycemia Treatment Stop: 12/24/21 07:14 Multivitamins (Multivitamin Tab) 1 tab PO DAILY RAFAELA Stop: 12/24/21 08:59 Last Admin: 11/24/21 09:11 Dose: 1 tab Nitroglycerin (Nitroglycerin Sl 0.4 Mg/Tab Tab) 0.4 mg SL UD PRN PRN Reason: Chest Pain Stop: 12/24/21 06:32 Psyllium Hydrophilic Mucilloid (Psyllium Or Guar Gum Fiber Powder Packet) 1 pkt PO BID RAFAELA Stop: 12/24/21 08:59 Last Admin: 11/24/21 09:11 Dose: 1 pkt Ropinirole HCl (Ropinirole Hcl 1 Mg Tablet) 1 mg PO QAM RAFAELA Stop: 12/24/21 08:59 Last Admin: 11/24/21 09:11 Dose: 1 mg Sevelamer HCl (Sevelamer Hcl 800 Mg Tablet) 2,400 mg PO TIDM RAFAELA Stop: 12/24/21 07:59 Last Admin: 11/24/21 16:55 Dose: 2,400 mg
[2021-11-24] MEDS ORDERED: IPRATROPIUM BROMIDE NEB SOLN 0.02% 2.5 ML VIAL INH PRN (17:41)
[2021-11-24] MEDS ORDERED: LEVALBUTEROL 1.25MG/0.5ML NEB INH PRN (17:41)
[2021-11-24] MEDS: INSULIN ASPART PER UNIT SC SCH ×2 (18:13→18:14)
[2021-11-24] MEDS ORDERED: METOPROLOL TARTRATE 50 MG TAB PO SCH (21:00)
[2021-11-24] MEDS: NICOTINE 21 MG/24 HR TDSY TD SCH (23:51)
[2021-11-25 04:03] VITALS: TEMP 97.9
[2021-11-25] MEDS: LEVOTHYROXINE SODIUM 137 MCG TABLET PO SCH (05:27)
[2021-11-25 07:06] LABS: Basophils # (auto) 0.01 K/uL (0-0.2); Basophils % (auto) 0.1 %; Hematocrit (blood only) 29.7 % (40.1-51.0); Hemoglobin 10.2 g/dl (14.0-18.0); Immature Granulocytes # (auto) 0.06 K/uL (0.00-0.02); Immature Granulocytes % (auto) 0.5 %; Lymphocytes # (auto) 0.29 K/uL (1.2-3.4); Lymphocytes % (auto) 2.6 %; Mean Corpuscular Hemoglobin 28.8 pg (25.0-34.0); Mean Corpuscular Hgb Conc 34.3 g/dL (32.0-36.0); Mean Corpuscular Volume 83.9 fL (80.0-100.0); Mean Platelet Volume 10.2 fL (9.4-12.4); Monocytes # (auto) 0.86 K/uL (0.24-0.82); Monocytes % (auto) 7.7 %; Neutrophils # (auto) 10.01 K/uL (1.4-6.5); Neutrophils % (auto) 89.1 %; Platelet Count 274 K/uL (130-400); RDW Coefficient of Variation 15.3 % (11.5-14.5); RDW Standard Deviation 46.3 fL (36.4-46.3); Red Blood Count 3.54 M/uL (4.63-6.08); White Blood Count 11.23 K/ul (4.8-10.8)
[2021-11-25 07:24] LABS: BUN Creatinine Ratio 8.1 (10-20); Calcium 8.3 mg/dl (8.5-10.1); Creatinine Clr Calc Pharmacy 13.5 ml/min; Est GFR (African American) 14.2 ml/min; Est GFR (Non-African American) 12.2 ml/min; Magnesium 2.2 mg/dl (1.7-2.4)
[2021-11-25 07:25] LABS: Estimated Average Glucose 134 mg/dl; Hemoglobin A1C 6.3 % (4.5-5.6)
[2021-11-25] MEDS: PSYLLIUM or GUAR GUM FIBER POWDER PACKET PO SCH (08:30)
[2021-11-25] MEDS: SEVELAMER HCL 800 MG TABLET PO SCH ×2 (08:31→13:46)
[2021-11-25] MEDS: NICOTINE 21 MG/24 HR TDSY TD SCH (08:31)
[2021-11-25] MEDS: rOPINIRole HCL 1 MG TABLET PO SCH (08:32)
[2021-11-25] MEDS: MULTIVITAMIN TAB PO SCH (08:32)
[2021-11-25] MEDS: amLODIPine BESYLATE 5 MG TAB PO SCH (08:33)
[2021-11-25] MEDS: ATORVASTATIN 40 MG TAB PO SCH (08:33)
[2021-11-25] MEDS: METOPROLOL TARTRATE 100 MG TAB PO SCH (08:33)
[2021-11-25] MEDS: busPIRone 5 MG TAB PO SCH (08:34)
[2021-11-25] MEDS: HEPARIN SOD 5,000 UNIT/0.5 ML VIAL SQ SCH (08:38)
--- NOTE | 2021-11-25 09:15 | XRay Report ---
XR chest 1V portable CLINICAL HISTORY: follow up effusion TECHNIQUE: Single frontal radiograph of the chest was obtained. Comparison: Comparison is made to chest radiograph 11/24/2021 FINDINGS: No lines and tubes are seen. Cardiomegaly is noted. Right lung base airspace opacities are again seen . Trace right pleural effusion, not significantly increased from prior exam. IMPRESSION: 1. Right lung base airspace opacities are seen which may represent aspiration, pneumonia, and/or ate lectasis. 2. Trace right pleural effusion. ACT 112: Negative or not required by law. Electronically signed by: Baudilio Aly M.D. 11/25/2021 9:14 AM
--- NOTE | 2021-11-25 10:13 | Pulmonology Progress Note ---
Date of Service November 25, 2021 Assessment & Plan (1) Metastatic adenocarcinoma: Plan: Status post thoracentesis 11/24/2021 with 1.7 L of fluid removed. Cytology reveals metastatic adenocarcinoma. Discussed the possibility of Pleurx versus repeat thoracentesis should the fluid recurs in the future. Chest x-ray today demonstrates right basilar atelectasis with minimal recurrence of fluid. He has only undergone radiation to the lung nodule and mediastinal lymph nodes. He has not received chemotherapy or immunotherapy. He follows with [facility] oncology. Given his advanced metastatic disease and ESRD, will consult palliative care. (2) Pleural effusion, right: Plan: May need Pleurx catheter versus repeat thoracentesis with his outpatient emulsion operator if the fluid recurs. (3) COPD (chronic obstructive pulmonary disease): Plan: No signs of exacerbation at this time. Recommend outpatient PFTs and initiating the patient on Incruse Ellipta. COPD type: unspecified COPD Qualified Code(s): J44.9 - Chronic obstructive pulmonary disease, unspecified (4) Dyspnea on exertion: Plan: Multifactorial related to malignancy, volume overload, ESRD and deconditioning. Palliative consult ordered as noted above. Recommend home oxygen evaluation prior to discharge. Plan Thank you for allowing us to participate in the care of this patient. No further recommendations at this time. Please call with questions. Admission and Anticipated Discharge Date Admission Date: November 24, 2021 Subjective Patient seen examined today. He notes that he had a bit of wheezing this morning. Currently he denies any shortness of breath at rest. Denies chest pain. Tolerated dialysis yesterday. Review of Systems Review of Systems: All systems reviewed & are unremarkable except as noted in HPI & below Physical Exam Physical Exam: Constitutional: Patient appears to be of their stated age. Patient is in no apparent distress. Patient is well-developed. Eyes: Pupils are equal round and reactive to light. Conjunctivae are normal. Anicteric sclera. Ears nose, mouth and throat: Deferred. Neck: Trachea is midline. Visual inspection is normal. Respiratory: Diminished lung sounds at the right lung base. Prolonged phase of exhalation. No wheezes. Cardiovascular: Regular rate and rhythm. No murmurs. No edema. Gastrointestinal: Normal bowel sounds, soft, nontender and nondistended. No hepatosplenomegaly noted. Musculoskeletal: No cyanosis. Patient is able to move all extremities. Strength is 5 out of 5 in the upper and lower extremities. Skin: No rashes, warm dry and intact. Neurologic: No obvious focal neurological deficits seen. Psychiatric: Alert and oriented x3 with a euthymic affect. Results & Data Results & Data ([facility]) Vital Signs (Past 12 Hours) Vital Signs Temp Pulse Pulse Resp BP Pulse Ox O2 Del Method 11/25/21 09:30 Room Air 11/25/21 08:03 36.6 C 92 H 16 153/73 H 91 Room Air 11/25/21 04:09 80 22 97 Nasal Cannula 11/25/21 04:02 36.6 C 80 22 161/78 H 100 Nasal Cannula 11/24/21 22:53 36.7 C 83 18 152/74 H 98 Nasal Cannula O2 Flow Rate 11/25/21 09:30 11/25/21 08:03 11/25/21 04:09 2 11/25/21 04:02 3 11/24/21 22:53 3 PG Care Time/CCT Total # of Minutes Spent Total Time Spent with Patient: Total time spent is greater than 50% in coordination of care (as documented) at patient's floor/unit and/or counseling patient: Coding Level of Care Code 77658 Subseq Hosp Care Lvl 3 Diagnoses Metastatic adenocarcinoma C79.9 Pleural effusion, right J90 COPD (chronic obstructive pulmonary disease) J44.9 COPD type: unspecified COPD Dyspnea on exertion R06.09
--- NOTE | 2021-11-25 10:23 | Nephrology Progress Note ---
Date of Service November 25, 2021 Assessment & Plan Admission and Anticipated Discharge Date Admission Date: November 24, 2021 Subjective S--feels much better. had dialysis and 3 kilo removed. PHYSICAL EXAMINATION: GENERAL: Elderly white male who is in somewhat respiratory distress. He was previously on BiPAP, but now is on 2 liter nasal cannula. Awake, alert, oriented x3. HEENT: Mucous membranes are moist. NECK: Supple. No jugular venous distention. CHEST: Bilateral decreased breath sounds, especially in the right lung with basal crackles. CARDIOVASCULAR: S1 and S2 regular. Soft systolic murmur heard. ABDOMEN: Soft, nontender. EXTREMITIES: Show trace to 1+ edema, more than usual. LABORATORY TEST: Reviewed in detail ASSESSMENT AND PLAN: A 71-year-old male with end-stage renal disease, on chronic hemodialysis Wednesday, Wednesday, Wednesday, now admitted with severe shortness of breath. End-stage renal disease. The patient clearly has significant fluid overload causing significant breathing issue. He has gained about 7.5 kilo in 3 days. On top of that, he has underlying lung disease as well as right pleural effusion. The combination of all of this has led to significant shortness of breath. Fortunately, after the thoracentesis, he feels somewhat better. He will be getting dialysis later today for about 3.5 hours and we will try to take as much fluid as we can, based on his tolerance as well as how much he allows. Strongly advised not to drink that much coffee given dialysis status. He has been told about this multiple times. ESRD--HD--MWF schedule. Seems much better. Advised about limiting fluid again Results & Data ([facility]) Vital Signs (Past 12 Hours) Vital Signs Temp Pulse Pulse Resp BP Pulse Ox O2 Del Method 11/25/21 09:30 Room Air 11/25/21 08:03 36.6 C 92 H 16 153/73 H 91 Room Air 11/25/21 04:09 80 22 97 Nasal Cannula 11/25/21 04:02 36.6 C 80 22 161/78 H 100 Nasal Cannula 11/24/21 22:53 36.7 C 83 18 152/74 H 98 Nasal Cannula O2 Flow Rate 11/25/21 09:30 11/25/21 08:03 11/25/21 04:09 2 11/25/21 04:02 3 11/24/21 22:53 3
--- NOTE | 2021-11-25 10:54 | Discharge Summary ---
Discharge Summary Date of Service November 25, 2021 Notes For Next Care Provider Medication Changes From Visit see discharge medication list Admission HPI Per Admitting Provider HISTORY OF PRESENT ILLNESS: A 71-year-old male with past medical history significant for type 2 diabetes, currently not on any medication, end-stage renal disease on hemodialysis, history of Graves' disease, status post postoperative hypothyroidism, hyperlipidemia, COPD, ongoing tobacco abuse, still smoking about 4-5 cigarettes daily, chronic diastolic CHF, mild aortic stenosis, history of atrial fibrillation, osteoarthritis. The patient has diagnosis of right upper lobe non-small cell lung cancer, status post radiation treatment, had a PET scan on 11/19/2021 found metastatic cancer, there is a large right pleural effusion and a moderate pericardial effusion, supposed to follow up with Hematology-Oncology, Dr. Javy Paredes on 12/04/2021. The patient was in the ER in first week of November, at that time, CAT scan showing low-grade colitis, comes today to the hospital with shortness of breath.. Since last , he is feeling short of breath. His PCP office prescribed prednisone for his s hortness of breath, pleural effusion and colitis. As was not getting better, he came to the hospital today . In the ER, he was requiring BiPAP. With BiPAP his shortness of breath is better. in the room gave most of the history. The patient has no fever or chills, has some cough, no chest pain, no headache, no neck pain. No back pain or belly pain. He is having on and off diarrhea, but no blood in the stools, ambulates with a walker. Appetite is okay. No difficulty swallowing. No blurred visions, no earache, no runny nose, no sore throat, no nausea, no vomiting. Admission Exam Per Admitting Provider PHYSICAL EXAMINATION: GENERAL: The patient is currently not on BiPAP, in no acute distress. VITAL SIGNS: Temperature 36.7, pulse 94, respiratory rate 18, blood pressure 157/83, oxygen 100% on BiPAP. HEENT: Pupils equal, round and reactive to light. Atraumatic. NECK: No neck masses seen. Supple. CARDIOVASCULAR: S1 and S2 heard. Regular rate and rhythm. No murmur, no gallop. RESPIRATORY SYSTEM: Normal AP diameter. No accessory muscle use. Mild bilateral expiratory wheezing heard. Mild bibasilar crackles. ABDOMEN: Soft, bowel sounds present, nontender, no distention. CENTRAL NERVOUS SYSTEM: Sleepy, but arousable, answering appropriately. No facial droop. Speech is clear. Insight is okay. Obeys simple commands. Moves extremities. EXTREMITIES: No edema, no erythema. Principal Dx & Hospital Course #1 = Principal Diagnosis (1) Fluid overload: Fluid overload secondary to increased coffee intake over the weekend. Patient notably gained 7.5 kg per nephrology. He has improved after thoracentesis this morning and is going for hemodialysis with ultrafiltration today. He initially presented requiring BiPAP and has been able to wean down to nasal cannula oxygen supplementation. He is in no acute distress. There does not appear to be any underlying infection and he has had no infectious symptoms. He was initially put on IV Solu-Medrol and IV Zosyn which were stopped to avoid issues with hyper volemia from the volume and unwanted hyperglycemia unnecessarily. On top of that, he has underlying lung disease with a right pleural effusion in the setting of metastatic lung cancer.. The combination of all of this led to significant shortness of breath. He underwent a thoracentesis and felt better. He was then dialyzed with 3L ultrafiltrate removed and was breathing back to baseline and aggressively requesting to return home. He was strongly advised not to drink that much coffee given dialysis status and verbalized understanding with intent to comply. (2) ESRD on hemodialysis: (3) Pleural effusion, right: Patient has known history of lung adenocarcinoma with metastatic disease to the mediastinal lymph nodes. Thoracentesis this morning yielded 1.7 L of serosanguineous fluid which appears to be an exudate. Pleural pH and glucose were not consistent with an infectious etiology, suspect malignant effusion. This underscores why we will stop the antibiotics and steroids at this time. Continue to monitor for postprocedure reexpansion pulmonary edema. (4) Metastatic adenocarcinoma: Known history of metastatic adenocarcinoma of the lung with mets to the mediastinum. Defer to pulmonology for indwelling Pleurx catheter for malignant effusion. (5) Tobacco dependence syndrome: Smoking cessation recommended. (6) DMII (diabetes mellitus, type 2): Patient adamantly denies that he has diabetes type 2 mellitus. A1C is 6.3 during this admission. At this time he has declined any blood sugar glucose checks, however, hyperglycemia is a concern in the setting of recent steroids that were given. We will stop steroids at this time and will monitor daily BMP. Discharge Exam CONSTITUTIONAL: WNWD, vitals as above, generally well-appearing, NAD EYES: normal conjunctivae, no scleral icterus ENT: external ear and nose normal, MMM NECK: trachea midline RESPIRATORY: clear to auscultation bilaterally with decreased breath sounds at bases bilaterally, no crackles, rales or wheezes, normal respiratory effort CARDIOVASCULAR: regular rate and rhythm, S1 and 2 heard without murmurs, gallops or rubs, no JVD, no peripheral edema CHEST: inspection of chest was normal GASTROINTESTINAL: soft, nontender, ND, no guarding MUSCULOSKELETAL: strength 5/5 throughout, head is normocephalic and atraumatic SKIN: warm and dry NEUROLOGIC: CN 2-12 grossly intact, no sensory deficit, normal cognition, normal speech, no tremor PSYCHIATRIC: alert cooperative and oriented to person, place and time. Updated Medication List Medication Instructions Recorded Confirmed Type albuterol sulfate 90 mcg/actuation 2 puff inhalation Q6H PRN Cough 01/08/21 11/26/21 History aerosol inhaler sevelamer carbonate 800 mg tablet 2,400 mg PO TIDM 01/18/21 11/26/21 History acetaminophen 325 mg tablet 650 mg PO Q4H PRN pain #30 tabs 03/04/21 11/26/21 Rx amlodipine 5 mg tablet (Norvasc) 5 mg PO QAM #30 tabs 03/04/21 11/26/21 Rx atorvastatin 40 mg tablet 40 mg PO QAM 05/14/21 11/26/21 History cyclobenzaprine 10 mg tablet 5 mg PO HS PRN Pain 05/14/21 11/26/21 History levothyroxine 137 mcg tablet 137 mcg PO DAILYBB 05/14/21 11/26/21 History (Euthyrox) multivitamin (Multiple Vitamins 1 tab PO DAILY 05/14/21 11/26/21 History tablet) buspirone 5 mg tablet 2.5 mg PO BID 11/12/21 11/26/21 History metoprolol tartrate 100 mg tablet See Rx Instructions .Route .COMPLEX 11/26/21 11/26/21 History varenicline 0.5 mg tablet 0.5 mg PO DAILY 11/27/21 11/27/21 History amoxicillin 250 mg-potassium 1 tab PO BID #9 tabs 11/28/21 Rx clavulanate 125 mg tablet aspirin 81 mg tablet,delayed 81 mg PO QAM #30 tabs 11/28/21 Rx release doxycycline hyclate 100 mg tablet 100 mg PO BID #9 tabs 11/28/21 Rx Hospital Stay Data Consultations 11/24/21 04:02 ED Decision to Admit Stat 11/24/21 07:00 Consult Nephrology Routine 11/24/21 08:00 Consult Pulmonology Routine 11/25/21 10:07 Consult Palliative Care Routine Diagnostic Imagining Performed 11/24/21 05:07 CT Abd and Pelvis [CT abd pelvis wo con] Stat CT chest diagnostic wo con Stat 11/24/21 08:07 US point of care ultrasound Urgent Pending Results Patient Have Any Pending Studies at Discharge: No Discharge Instructions Given to Patient (Per Discharging Provider) Please take all medications as instructed on discharge list below. Please follow-up with your primary care physician in one week to ensure you are still doing well after returning home, and to monitor your breathing and lungs after fluid removal. Please continue to stay quit from smoking for general overall better health. It was a pleasure taking care of you! Please call if you have any questions or problems. You can reach a [facility] hospitalist on duty at [facility] 24 hours a day by calling [phone]. Take care of yourself. Emily Rodriguez, [facility] Hospitalist Total Time Total Time Spent Total Time Spent (In Minutes): 60
[2021-11-25 12:51] VITALS: BP 150/73; O2SAT 90
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
[2021-11-25 14:01] VITALS: PULSE 80
[2021-12-15] MEDS ORDERED: oxyCODONE HCL IR 5 MG TAB (IMMEDIATE RELEASE) PO STA (21:01)
[2021-12-15] MEDS ORDERED: oxyCODONE HCL IR 5 MG TAB (IMMEDIATE RELEASE) PO PRN (21:01)
== END 2021-11-25 16:26 | disposition home or self-care (01) | DRG 640 ==
LOC: ED 02:58 → 2S 05:05

== ENCOUNTER 2021-11-25 23:42 | Inpatient (IN) ==
[2021-11-26 02:21] LABS: Basophils # (auto) 0.01 K/uL (0-0.2); Basophils % (auto) 0.1 %; Eosinophils # (auto) 0.05 K/uL (0-0.50); Eosinophils % (auto) 0.4 %; Hematocrit (blood only) 32.8 % (40.1-51.0); Immature Granulocytes # (auto) 0.08 K/uL (0.00-0.02); Immature Granulocytes % (auto) 0.6 %; Lymphocytes # (auto) 0.76 K/uL (1.2-3.4); Lymphocytes % (auto) 5.6 %; Mean Corpuscular Hemoglobin 28.8 pg (25.0-34.0); Mean Corpuscular Hgb Conc 33.5 g/dL (32.0-36.0); Mean Corpuscular Volume 85.9 fL (80.0-100.0); Mean Platelet Volume 10.2 fL (9.4-12.4); Monocytes # (auto) 1.17 K/uL (0.24-0.82); Monocytes % (auto) 8.6 %; Neutrophils # (auto) 11.47 K/uL (1.4-6.5); Neutrophils % (auto) 84.7 %; Platelet Count 321 K/uL (130-400); RDW Coefficient of Variation 15.3 % (11.5-14.5); RDW Standard Deviation 47.7 fL (36.4-46.3); Red Blood Count 3.82 M/uL (4.63-6.08); White Blood Count 13.54 K/ul (4.8-10.8)
[2021-11-26 02:32] LABS: Partial Thromboplastin Ratio 0.9; Partial Thromboplastin Time 24.8 Seconds (21.0-31.0); Prothrombin Time 10.9 Seconds (9.0-12.0)
[2021-11-26 03:00] LABS: Alanine Aminotransferase 11 U/L (7-52); Albumin Globulin Ratio 1.4 (0.9-2); Albumin Level 3.8 gm/dl (3.4-5.0); Alkaline Phosphatase 69 U/L (34-104); Anion Gap 11 (3-11); Aspartate Aminotransferase 12 U/L (13-39); BUN Creatinine Ratio 8.9 (10-20); Bilirubin,Total 0.6 mg/dl (0.2-1.0); Blood Urea Nitrogen 50 mg/dl (6-23); Calcium 8.8 mg/dl (8.5-10.1); Carbon Dioxide 28 mmol/L (21-32); Chloride 97 mmol/L (98-107); Est GFR (African American) 10.7 ml/min; Est GFR (Non-African American) 9.2 ml/min; Globulin 2.7 gm/dl (2.5-4.0); Glucose 168 mg/dl (70-99(Fasting)); Magnesium 2.3 mg/dl (1.7-2.4); Potassium 3.9 mmol/L (3.5-5.1); Sodium 136 mmol/L (136-145); Total Protein 6.5 gm/dl (6.0-8.3)
[2021-11-26 05:11] LABS: Influenza A virus by PCR Negative (Neg); Influenza B virus by PCR Negative (Neg); RSV by PCR Negative (Neg); SARS CoV2 RNA(COVID-19) InHosp NEGATIVE (Negative)
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
--- NOTE | 2021-11-26 07:34 | CT Scan Report ---
CT OF THE CHEST WITHOUT IV CONTRAST CLINICAL HISTORY: Shortness of breath, increasing right lower lobe infiltrate. Lung cancer. COMPARISON STUDY: Chest CT November 24, 2021. Chest radiograph November 25, 2021. CT DOSE: 426.28 mGy.cm TECHNIQUE: Axial images of the chest were obtained without IV contrast. Images were reviewed in the axial, sagittal, and coronal planes. IV contrast was not administered for this examination. Automat ed exposure control was utilized for the study. A dose lowering technique was utilized adhering to t he principles of ALARA. FINDINGS: Mediastinal and right hilar lymphadenopathy similar to CT of November 24, 2021. Index right paratracheal lymph node on axial image 44 of 341 measures 2 cm in short axis demonstrated. Index sub carinal lymph node on image 147 measures 3.1 cm. Cardiomegaly is noted with extensive coronary artery calcification. A trace pericardial effusion. Moderate right and trace left pleural effusions have de creased in size since CT of November 24, 2021. There is no pneumothorax. Extensive right lower lobe co nsolidation has developed. Interlobular septal thickening is present. There are additional ground gla ss opacities within the lungs. A 3.2 x 2.6 cm right upper lobe mass is similar to prior exam. A 2.1 c m irregular nodule within the anterior segment of the right upper lobe on image 153 is also unchanged . A few smaller pulmonary nodules including a 7 mm left lower lobe nodule are unchanged. These nodule s remain indeterminate. IMPRESSION: 1. Interval development of extensive right lower lobe consolidation. This favors pneumonia however al veolar edema could appear similar. Additional groundglass opacities within the lungs. 2. Moderate right and trace left pleural effusions, decreased in size since CT of November 24, 2021. I nterlobular septal thickening consistent with pulmonary edema. 3. Redemonstration of a 3.2 cm right upper lobe mass and mediastinal and right hilar lymphadenopathy. 4. Multiple additional indeterminate pulmonary nodules, as described above. ACT 112: Negative or not required by law. Electronically signed by: Jose Hastings M.D. 11/26/2021 7:31 AM
--- NOTE | 2021-11-26 07:54 | XRay Report ---
SINGLE VIEW CHEST CLINICAL HISTORY: Dyspnea FINDINGS: An AP, portable, upright chest radiograph is compared to study performed earlier the same d ay 11/25/2021. Correlation is made with chest CT dated 11/24/2021. The examination is degraded by por table technique and apical lordotic positioning. The heart is enlarged noting atherosclerotic calcif ication of the thoracic aorta. There is pulmonary vascular congestion. There are right larger than le ft pleural effusions with right basilar consolidation. A 3 cm nodular opacity is seen in the right up per lobe. No pneumothorax is identified. The skeletal structures are osteopenic. The bony thorax is g rossly intact. IMPRESSION: 1. Cardiomegaly with pulmonary vascular congestion. 2. Right larger than left pleural effusions with right basilar consolidation. 3. A 3 cm nodular opacity is seen in the right upper lobe. This is suspicious for neoplasm when jenn red to yesterday's chest CT. ACT 112: Negative or not required by law. Electronically signed by: Dheeraj Monte M.D. 11/26/2021 7:53 AM
[2021-11-26] MEDS ORDERED: POLYETHYLENE (MIRALAX) 17 GM PACK PO PRN (08:49)
[2021-11-26] MEDS ORDERED: ALBUTEROL HFA 8 GM INHALER INH PRN (08:49)
[2021-11-26] MEDS ORDERED: ACETAMINOPHEN 325 MG TAB PO PRN (08:49)
[2021-11-26] MEDS ORDERED: LEVALBUTEROL HCL 1.25 MG/3 ML NEB NEB PRN (08:49)
[2021-11-26] MEDS ORDERED: NITROGLYCERIN SL 0.4 MG/TAB TAB SL PRN (08:49)
[2021-11-26] MEDS ORDERED: CYCLOBENZAPRINE HCL 5 MG TAB PO PRN (08:49)
[2021-11-26] MEDS ORDERED: DOXYCYCLINE HYCLATE 100 MG in DEXTROSE 5% 100 ML IV SCH (09:15)
[2021-11-26] MEDS ORDERED: METOPROLOL TARTRATE 100 MG TAB PO SCH (09:15)
[2021-11-26] MEDS ORDERED: PIPERACILLIN/TAZOBACTAM 3.375 GM in DEXTROSE 5% 100 ML IV SCH (09:15)
--- NOTE | 2021-11-26 09:34 | Electrocardiogram Report ---
Test Reason : Blood Pressure : / mmHG Vent. Rate : 082 BPM Atrial Rate : 082 BPM P-R Int : 162 ms QRS Dur : 090 ms QT Int : 398 ms P-R-T Axes : 017 019 076 degrees QTc Int : 464 ms Poor data quality, interpretation may be adversely affected Normal sinus rhythm Poor R wave progression, consider anterior TX vs. lead placement vs. LVH Abnormal ECG When compared with ECG of 24-NOV-2021 03:14, No significant change Confirmed by Fred Martínez ([id number]) on 11/26/2021 9:34:04 AM Referred By: REFERRED SELF Confirmed By:Fred Martínez
[2021-11-26] MEDS ORDERED: SODIUM CHLORIDE 0.9% 1000ML 1,000 ML IV PRN (10:04)
[2021-11-26] MEDS: MULTIVITAMIN TAB PO SCH (10:24)
[2021-11-26] MEDS: busPIRone 5 MG TAB PO SCH ×2 (10:24→20:03)
[2021-11-26] MEDS: SEVELAMER HCL 800 MG TABLET PO SCH ×3 (10:24→18:17)
[2021-11-26] MEDS: ATORVASTATIN 40 MG TAB PO SCH (10:24)
[2021-11-26] MEDS: LEVOTHYROXINE SODIUM 137 MCG TABLET PO SCH (10:25)
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
[2021-11-26] MEDS: HEPARIN SOD 5,000 UNIT/0.5 ML VIAL SQ SCH ×2 (14:54→22:04)
[2021-11-26] MEDS ORDERED: Nursing to Pharmacy Communication SCH (15:45)
[2021-11-26] MEDS: PSYLLIUM or GUAR GUM FIBER POWDER PACKET PO SCH (18:16)
[2021-11-26] MEDS: amLODIPine BESYLATE 5 MG TAB PO SCH (18:16)
--- NOTE | 2021-11-26 19:38 | Hospitalist Progress Note ---
Date of Service November 26, 2021 Assessment & Plan (1) Dyspnea on exertion: Plan: Patient is a 71 yr male who presents with shortness of breath. Bilateral pleural effusion Volume overload: Likely multifactorial end-stage renal disease, CHF, Malignancy, Pneumonia --CT Chest:Interval development of extensive right lower lobe consolidation. This favors pneumonia however alveolar edema could appear similar. Additional groundglass opacities within the lungs. Moderate right and trace left pleural effusions, decreased in size since CT of November 24, 2021. Interlobular septal thickening consistent with pulmonary edema. Redemonstration of a 3.2 cm right upper lobe mass and mediastinal and right hilar lymphadenopathy. Multiple additional indeterminate pulmonary nodules, as described above. -- Thoracentesis pathology from 11/24/21: Malignant cells present consistent with metastatic adenocarcinoma, lung primary. --ECHO: Focal apical and apical anteroseptal hypokinesis. Otherwise diffuse severe hypokinesis present. EF 25 to 30%. Aortic valve is mildly calcified. Mild mitral regurgitation. Grade 2 diastolic dysfunction. Small circumferential pericardial effusion Will need repeat limited echo with contrast to reassess EF --Had thoracentesis on 11/24/2021. --Volume status managed through dialysis Appreciate nephrology input Cardiology consulted as well. Appreciate input May need Pleurx catheter versus repeat thoracentesis Pulmonology consulted HCAP Right lower lobe pneumonia Continue Zosyn, doxycycline Saturating well on room air End-stage renal disease on hemodialysis Appreciate nephrology input . Tobacco abuse Counselled to quit DM II currently not on any medications HbA1c 6.3 Monitor BGs Metastatic lung cancer Follow up with hematology/oncology. Hypertension Continue his amlodipine and metoprolol Monitor Hyperlipidemia on statin Hypothyroidism on levothyroxine DVT Px: Heparin SQ Code Status Full Code Admission and Anticipated Discharge Date Admission Date: November 26, 2021 Subjective Patient is seen and examined at bedside States having dyspnea, orthopnea Also states having cough when lying down Denies any chest pain, dizziness Offers no other complaints Review of Systems Review of Systems: All systems reviewed & are unremarkable except as noted in Subjective Physical Exam Physical Exam: Physical Exam: Vitals signs as noted above General Appearance:Moderately built and nourished, no apparent distress Head: normocephalic, Atraumatic Eyes: normal inspection, EOMI Neck: supple, Trachea midline Respiratory/Chest: decreased breath sounds, basal crackles, No accessory muscle use Cardiovascular: S1, S2, + murmur Abdomen/GI:Soft, Non tender, Bowel sounds present Extremities/Musculoskeletal:normal inspection, + edema Neurologic/Psych:AAOX3, grossly no focal neurological deficits Skin: normal color, warm Results & Data Results & Data ([facility]) Vital Signs (Past 12 Hours) Vital Signs Temp Pulse Pulse Pulse Resp BP BP 11/26/21 18:00 36.5 C 92 H 169/81 H 11/26/21 17:30 95 H 109/64 11/26/21 17:00 94 H 150/81 H 11/26/21 16:30 95 H 174/95 H 11/26/21 16:00 89 171/86 H 11/26/21 15:30 92 H 168/107 H 11/26/21 15:00 90 188/81 H 11/26/21 14:39 36.6 C 90 11/26/21 11:41 36.6 C 90 18 172/75 H 11/26/21 10:51 11/26/21 09:04 36.6 C 85 18 146/76 H 11/26/21 07:45 82 16 Pulse Ox O2 Del Method 11/26/21 18:00 11/26/21 17:30 11/26/21 17:00 11/26/21 16:30 11/26/21 16:00 11/26/21 15:30 11/26/21 15:00 11/26/21 14:39 11/26/21 11:41 94 Room Air 11/26/21 10:51 Room Air 11/26/21 09:04 97 Room Air 11/26/21 07:45 95 Room Air Laboratory Results Short CBC 11/26/21 Range/Units 02:10 WBC 13.54 H (4.8-10.8) K/ul Hgb 11.0 L (14.0-18.0) g/dl Hct 32.8 L (40.1-51.0) % Plt Count 321 (130-400) K/uL BMP 11/26/21 02:10 Sodium 136 Potassium 3.9 Chloride 97 L Carbon Dioxide 28 BUN 50 H Creatinine 5.64 H* D Glucose 168 H Calcium 8.8 Liver Function 11/26/21 Range/Units 02:10 Total Bilirubin 0.6 (0.2-1.0) mg/dl AST 12 L (13-39) U/L ALT 11 (7-52) U/L Alkaline Phosphatase 69 (34-104) U/L Albumin 3.8 (3.4-5.0) gm/dl
[2021-11-26] MEDS: DOXYCYCLINE HYCLATE 100 MG in DEXTROSE 5% 100 ML IV SCH (19:55)
[2021-11-26] MEDS: METOPROLOL TARTRATE 50 MG TAB PO SCH (20:04)
[2021-11-26] MEDS: PIPERACILLIN/TAZOBACTAM 3.375 GM in DEXTROSE 5% 100 ML IV SCH (22:05)
[2021-11-26 23:45] LABS: Adenovirus F 40/41 PCR Not Detected (NotDetected); Astrovirus PCR Not Detected (NotDetected); Campylobacter PCR Not Detected (NotDetected); Clostridium diff Toxin A/B PCR Not Detected (NotDetected); Cryptosporidium PCR Not Detected (NotDetected); Cyclospora cayetanensis PCR Not Detected (NotDetected); Entamoeba histolytica PCR Not Detected (NotDetected); Enteroaggregative E.coli(EAEC) Not Detected (NotDetected); Enteropathogenic E.coli (EPEC) Not Detected (NotDetected); Enterotoxigenic E.coli (ETEC) Not Detected (NotDetected); Giardia lamblia PCR Not Detected (NotDetected); Norovirus GI/GII PCR Not Detected (NotDetected); Plesiomonas shigelloides PCR Not Detected (NotDetected); Rotavirus A PCR Not Detected (NotDetected); Salmonella PCR Not Detected (NotDetected); Sapovirus PCR Not Detected (NotDetected); Shiga-like Toxin E.coli (STEC) Not Detected (NotDetected); Shigella/Enteroinvasive E.coli Not Detected (NotDetected); Vibrio cholerae PCR Not Detected (NotDetected); Vibrio species PCR Not Detected (NotDetected); Yersinia enterocolitica PCR Not Detected (NotDetected)
[2021-11-27] MEDS: HEPARIN SOD 5,000 UNIT/0.5 ML VIAL SQ SCH ×3 (05:07→22:24)
[2021-11-27] MEDS: LEVOTHYROXINE SODIUM 137 MCG TABLET PO SCH (05:42)
[2021-11-27 07:04] LABS: Eosinophils # (auto) 0.13 K/uL (0-0.50); Eosinophils % (auto) 1.3 %; Hematocrit (blood only) 32.5 % (40.1-51.0); Hemoglobin 10.9 g/dl (14.0-18.0); Immature Granulocytes # (auto) 0.06 K/uL (0.00-0.02); Immature Granulocytes % (auto) 0.6 %; Lymphocytes # (auto) 0.62 K/uL (1.2-3.4); Lymphocytes % (auto) 6.1 %; Mean Corpuscular Hemoglobin 28.5 pg (25.0-34.0); Mean Corpuscular Hgb Conc 33.5 g/dL (32.0-36.0); Mean Corpuscular Volume 85.1 fL (80.0-100.0); Mean Platelet Volume 10.8 fL (9.4-12.4); Monocytes # (auto) 1.19 K/uL (0.24-0.82); Monocytes % (auto) 11.8 %; Neutrophils # (auto) 8.09 K/uL (1.4-6.5); Neutrophils % (auto) 80.2 %; Platelet Count 286 K/uL (130-400); RDW Standard Deviation 46.2 fL (36.4-46.3); Red Blood Count 3.82 M/uL (4.63-6.08); White Blood Count 10.09 K/ul (4.8-10.8)
[2021-11-27 07:35] LABS: BUN Creatinine Ratio 7.6 (10-20); Calcium 8.4 mg/dl (8.5-10.1); Creatinine Clr Calc Pharmacy 13.2 ml/min; Est GFR (African American) 13.8 ml/min; Est GFR (Non-African American) 11.9 ml/min; Magnesium 2.2 mg/dl (1.7-2.4); Potassium 3.7 mmol/L (3.5-5.1)
[2021-11-27] MEDS: PSYLLIUM or GUAR GUM FIBER POWDER PACKET PO SCH (08:20)
[2021-11-27] MEDS: MULTIVITAMIN TAB PO SCH (08:20)
[2021-11-27] MEDS: DOXYCYCLINE HYCLATE 100 MG in DEXTROSE 5% 100 ML IV SCH ×2 (08:20→19:48)
[2021-11-27] MEDS: busPIRone 5 MG TAB PO SCH ×2 (08:21→22:14)
[2021-11-27] MEDS: SEVELAMER HCL 800 MG TABLET PO SCH ×3 (08:21→16:59)
[2021-11-27] MEDS: ATORVASTATIN 40 MG TAB PO SCH (08:21)
[2021-11-27] MEDS: amLODIPine BESYLATE 5 MG TAB PO SCH (08:21)
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
[2021-11-27] MEDS: PIPERACILLIN/TAZOBACTAM 3.375 GM in DEXTROSE 5% 100 ML IV SCH ×2 (11:15→22:13)
[2021-11-27] MEDS: METOPROLOL TARTRATE 100 MG TAB PO SCH (11:21)
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
[2021-11-27] MEDS: ASPIRIN 81 MG ECTAB PO SCH (15:06)
--- NOTE | 2021-11-27 16:48 | Hospitalist Progress Note ---
Date of Service November 27, 2021 Assessment & Plan (1) Dyspnea on exertion: Plan: Patient is a 71 yr male who presents with shortness of breath. Bilateral pleural effusion Volume overload: Likely multifactorial end-stage renal disease, CHF, Malignancy, Pneumonia Acute systolic and diastolic heart failure Presumed ischemic cardiopathy DD: Stress-induced cardiomyopathy --CT Chest:Interval development of extensive right lower lobe consolidation. This favors pneumonia however alveolar edema could appear similar. Additional groundglass opacities within the lungs. Moderate right and trace left pleural effusions, decreased in size since CT of November 24, 2021. Interlobular septal thickening consistent with pulmonary edema. Redemonstration of a 3.2 cm right upper lobe mass and mediastinal and right hilar lymphadenopathy. Multiple additional indeterminate pulmonary nodules, as described above. -- Thoracentesis pathology from 11/24/21: Malignant cells present consistent with metastatic adenocarcinoma, lung primary. --ECHO: Focal apical and apical anteroseptal hypokinesis. Otherwise diffuse severe hypokinesis present. EF 25 to 30%. Aortic valve is mildly calcified. Mild mitral regurgitation. Grade 2 diastolic dysfunction. Small circumferential pericardial effusion --Had thoracentesis on 11/24/2021. --Volume status managed through dialysis Appreciate nephrology input Refused Pleurx catheter in past Appreciate Pulmonology, cardiology input Started on aspirin 81 mg daily thought to be not a candidate for coronary artery bypass grafting Poor prognosis Palliative care following HCAP Right lower lobe pneumonia Continue Zosyn, doxycycline Saturating well on room air End-stage renal disease on hemodialysis Appreciate nephrology input . Tobacco abuse Counselled to quit DM II currently not on any medications HbA1c 6.3 Monitor BGs Metastatic lung cancer Follow up with hematology/oncology. Consulted oncology Hypertension Continue his amlodipine and metoprolol Monitor Hyperlipidemia on statin Hypothyroidism on levothyroxine DVT Px: Heparin SQ Code Status Full Code Admission and Anticipated Discharge Date Admission Date: November 26, 2021 Subjective Patient is seen and examined at bedside Orthopnea, dyspnea better today No new complaints Discussed with palliative care, pulmonology today Denies any chest pain, dizziness Review of Systems Review of Systems: All systems reviewed & are unremarkable except as noted in Subjective Physical Exam Physical Exam: Physical Exam: Vitals signs as noted above General Appearance:Moderately built and nourished, no apparent distress Head: normocephalic, Atraumatic Eyes: normal inspection, EOMI Neck: supple, Trachea midline Respiratory/Chest: decreased breath sounds, minimal basal crackles, No accessory muscle use Cardiovascular: S1, S2, + murmur Abdomen/GI:Soft, Non tender, Bowel sounds present Extremities/Musculoskeletal:normal inspection, + edema Neurologic/Psych:AAOX3, grossly no focal neurological deficits Skin: normal color, warm Results & Data Results & Data ([facility]) Vital Signs (Past 12 Hours) Vital Signs Temp Pulse Pulse Resp BP Pulse Ox O2 Del Method 11/27/21 11:22 36.5 C 83 130/61 91 Room Air 11/27/21 08:15 36.6 C 75 20 165/68 H 95 Room Air Laboratory Results Short CBC 11/27/21 Range/Units 06:11 WBC 10.09 (4.8-10.8) K/ul Hgb 10.9 L (14.0-18.0) g/dl Hct 32.5 L (40.1-51.0) % Plt Count 286 (130-400) K/uL BMP 11/27/21 06:11 Sodium 138 Potassium 3.7 Chloride 100 Carbon Dioxide 29 BUN 35 H Creatinine 4.58 H* D Glucose 154 H Calcium 8.4 L
[2021-11-27] MEDS ORDERED: MELATONIN 3 MG TAB PO PRN (20:11)
[2021-11-27] MEDS: METOPROLOL TARTRATE 50 MG TAB PO SCH (22:14)
[2021-11-28] MEDS: LEVOTHYROXINE SODIUM 137 MCG TABLET PO SCH (05:42)
[2021-11-28] MEDS: HEPARIN SOD 5,000 UNIT/0.5 ML VIAL SQ SCH ×2 (06:10→15:26)
[2021-11-28 06:57] LABS: Hematocrit (blood only) 31.5 % (40.1-51.0); Hemoglobin 10.5 g/dl (14.0-18.0); Mean Corpuscular Hemoglobin 28.5 pg (25.0-34.0); Mean Corpuscular Hgb Conc 33.3 g/dL (32.0-36.0); Mean Corpuscular Volume 85.6 fL (80.0-100.0); Mean Platelet Volume 11.2 fL (9.4-12.4); Platelet Count 272 K/uL (130-400); RDW Standard Deviation 47.2 fL (36.4-46.3); Red Blood Count 3.68 M/uL (4.63-6.08); White Blood Count 10.03 K/ul (4.8-10.8)
[2021-11-28] MEDS ORDERED: EPOETIN ALFA 4,000 UNIT/ML VIAL IV ONE (07:00)
[2021-11-28] MEDS ORDERED: SODIUM CHLORIDE 0.9% 1000ML 1,000 ML IV PRN (07:00)
[2021-11-28 07:09] LABS: Creatinine Clr Calc Pharmacy 10.5 ml/min; Est GFR (African American) 10.4 ml/min; Potassium 3.7 mmol/L (3.5-5.1)
[2021-11-28] MEDS: busPIRone 5 MG TAB PO SCH (07:55)
[2021-11-28] MEDS: MULTIVITAMIN TAB PO SCH (07:55)
[2021-11-28] MEDS: SEVELAMER HCL 800 MG TABLET PO SCH ×2 (07:56→13:44)
[2021-11-28] MEDS: ATORVASTATIN 40 MG TAB PO SCH (07:56)
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
[2021-11-28] MEDS: PSYLLIUM or GUAR GUM FIBER POWDER PACKET PO SCH (08:30)
[2021-11-28] MEDS: ASPIRIN 81 MG ECTAB PO SCH (09:09)
--- NOTE | 2021-11-28 11:00 | Dialysis Progress Note ---
Date of Service November 28, 2021 Assessment & Plan Admission and Anticipated Discharge Date Admission Date: November 26, 2021 Subjective S---seen in dialysis. Comfortable for now. No resp Distress. BP and AVF fine PHYSICAL EXAMINATION: HEENT: Mucous membranes are moist. NECK: Supple. No jugular venous distention. CHEST: Bilateral decreased breath sounds, especially in the right lung with basal crackles. CARDIOVASCULAR: S1 and S2 regular. Soft systolic murmur heard. ABDOMEN: Soft, nontender. EXTREMITIES: Show trace to 1+ edema, more than usual. LABORATORY TEST: Reviewed in detail from this morning, ASSESSMENT AND PLAN: A 71-year-old male with end-stage renal disease, on chronic hemodialysis Wednesday, Wednesday, Wednesday, now admitted with severe shortness of breath. End-stage renal disease. The patient clearly has significant fluid overload causing significant breathing issue. He has gained lot of weight this past weekend--about 7.5 kilo in 3 days. On top of that, he has underlying lung disease as well as right pleural effusion. The combination of all of this has led to significant shortness of breath. Fortunately, after the thoracentesis, he feels somewhat better but is SOB again and now readmitted. . He will be getting dialysis later today for about 3 to 3.5 hours and we will try to take as much fluid as we can, based on his tolerance as well as how much he allows. Strongly advised not to drink that much coffee given dialysis status. He has been told about this multiple times. Now has very low LVEF also on top. makes management lot more difficult now. More widespread metastasis with lung Cancer. Will try to take what we can today. he did not like the idea of doing more dialysis to help with fluid removal. Results & Data ([facility]) Vital Signs (Past 12 Hours) Vital Signs Temp Pulse Resp BP Pulse Ox O2 Del Method 11/28/21 08:00 Room Air 11/28/21 08:03 36.4 C L 73 20 144/91 H 100 Room Air 11/28/21 02:44 36.7 C 79 20 167/77 H 96 Room Air 11/28/21 00:07 140/84 11/27/21 23:06 36.4 C L 89 18 183/78 H 98 Room Air
--- NOTE | 2021-11-28 12:39 | Palliative Care Progress Note ---
Date of Service November 28, 2021 Assessment & Plan (1) Palliative care encounter: (2) Malignant pleural effusion: (3) Acute heart failure with reduced ejection fraction and diastolic dysfunction: (4) Metastatic adenocarcinoma: Plan No acute issues as noted during my cosult yesterday. Pt presently unavailable. Not seen today/no charge submitted Mili Magana DNP Clinical Director, Palliative Medicine Admission and Anticipated Discharge Date Admission Date: November 26, 2021 Subjective Attempted to see pt for follow up, oncology notes reviewed/consult appreciated. He remains off unit, at HD during both my attempts to see him today Review of Systems Review of Systems: All systems reviewed & are unremarkable except as noted in Subjective Physical Exam Physical Exam: pt not seen/no exam done Results & Data ([facility]) Vital Signs (Past 12 Hours) Vital Signs Temp Pulse Pulse Pulse Pulse Resp BP 11/28/21 11:30 88 132/72 11/28/21 11:00 66 144/75 H 11/28/21 10:30 79 124/75 11/28/21 10:00 78 142/72 H 11/28/21 09:44 36.5 C 88 81 11/28/21 08:00 11/28/21 08:03 36.4 C L 73 20 11/28/21 02:44 36.7 C 79 20 BP Pulse Ox O2 Del Method 11/28/21 11:30 11/28/21 11:00 11/28/21 10:30 11/28/21 10:00 11/28/21 09:44 11/28/21 08:00 Room Air 11/28/21 08:03 144/91 H 100 Room Air 11/28/21 02:44 167/77 H 96 Room Air PG Care Time/CCT Total # of Minutes Spent Total Time Spent with Patient: Total time spent is greater than 50% in coordination of care (as documented) at patient's floor/unit and/or counseling patient: Coding Level of Care Code None Diagnoses Palliative care encounter Z51.5 Malignant pleural effusion J91.0 Acute heart failure with reduced ejection fraction and diastolic dysfunction I50.41 Metastatic adenocarcinoma C79.9
[2021-11-28] MEDS: METOPROLOL TARTRATE 100 MG TAB PO SCH (13:44)
[2021-11-28] MEDS: amLODIPine BESYLATE 5 MG TAB PO SCH (13:44)
[2021-11-28] MEDS: DOXYCYCLINE HYCLATE 100 MG in DEXTROSE 5% 100 ML IV SCH (13:50)
--- NOTE | 2021-11-28 14:31 | Hospitalist Progress Note ---
Date of Service November 28, 2021 Assessment & Plan (1) Dyspnea on exertion: Plan: Patient is a 71 yr male who presents with shortness of breath. Bilateral pleural effusion Volume overload: Likely multifactorial end-stage renal disease, CHF, Malignancy, Pneumonia Acute systolic and diastolic heart failure Presumed ischemic cardiopathy DD: Stress-induced cardiomyopathy --CT Chest:Interval development of extensive right lower lobe consolidation. This favors pneumonia however alveolar edema could appear similar. Additional groundglass opacities within the lungs. Moderate right and trace left pleural effusions, decreased in size since CT of November 24, 2021. Interlobular septal thickening consistent with pulmonary edema. Redemonstration of a 3.2 cm right upper lobe mass and mediastinal and right hilar lymphadenopathy. Multiple additional indeterminate pulmonary nodules, as described above. -- Thoracentesis pathology from 11/24/21: Malignant cells present consistent with metastatic adenocarcinoma, lung primary. --ECHO: Focal apical and apical anteroseptal hypokinesis. Otherwise diffuse severe hypokinesis present. EF 25 to 30%. Aortic valve is mildly calcified. Mild mitral regurgitation. Grade 2 diastolic dysfunction. Small circumferential pericardial effusion --Had thoracentesis on 11/24/2021. --Volume status managed through dialysis Appreciate nephrology input Refused Pleurx catheter in past Patient doesn't want extra fluid being removed through dialysis as recommended by Nephrology Appreciate Pulmonology, cardiology input Started on aspirin 81 mg daily thought to be not a candidate for coronary artery bypass grafting Poor prognosis Appreciate Palliative care Input HCAP Right lower lobe pneumonia Continue Zosyn, doxycycline Saturating well on room air Transition to PO antibiotics upon discharge End-stage renal disease on hemodialysis Appreciate nephrology input . Tobacco abuse Counselled to quit DM II currently not on any medications HbA1c 6.3 Monitor BGs Metastatic lung cancer Follow up with hematology/oncology. Appreciate Oncology Input Has follow up appointment with Hypertension Continue his amlodipine and metoprolol Monitor Hyperlipidemia on statin Hypothyroidism on levothyroxine DVT Px: Heparin SQ Code Status Full Code Disposition Home Admission and Anticipated Discharge Date Admission Date: November 26, 2021 Subjective Patient is seen and examined at bedside Had dialysis earlier today Eager to get discharged Denies any chest pain, shortness of breath, dizziness, nausea, abdominal pain Discussed with Cardiology and Nephrology today Review of Systems Review of Systems: All systems reviewed & are unremarkable except as noted in Subjective Physical Exam Physical Exam: Physical Exam: Vitals signs as noted above General Appearance:Moderately built and nourished, no apparent distress Head: normocephalic, Atraumatic Eyes: normal inspection, EOMI Neck: supple, Trachea midline Respiratory/Chest: decreased breath sounds, minimal basal crackles, No accessory muscle use Cardiovascular: S1, S2, + murmur Abdomen/GI:Soft, Non tender, Bowel sounds present Extremities/Musculoskeletal:normal inspection, + edema Neurologic/Psych:AAOX3, grossly no focal neurological deficits Skin: normal color, warm Results & Data Results & Data ([facility]) Vital Signs (Past 12 Hours) Vital Signs Temp Pulse Pulse Pulse Pulse Resp BP 11/28/21 13:00 91 H 141/88 H 11/28/21 12:30 84 139/66 11/28/21 12:00 85 136/86 11/28/21 11:30 88 132/72 11/28/21 11:00 66 144/75 H 11/28/21 10:30 79 124/75 11/28/21 10:00 78 142/72 H 11/28/21 09:44 36.5 C 88 81 11/28/21 08:00 11/28/21 08:03 36.4 C L 73 20 11/28/21 02:44 36.7 C 79 20 BP Pulse Ox O2 Del Method 11/28/21 13:00 11/28/21 12:30 11/28/21 12:00 11/28/21 11:30 11/28/21 11:00 11/28/21 10:30 11/28/21 10:00 11/28/21 09:44 11/28/21 08:00 Room Air 11/28/21 08:03 144/91 H 100 Room Air 11/28/21 02:44 167/77 H 96 Room Air Laboratory Results Short CBC 11/28/21 Range/Units 05:55 WBC 10.03 (4.8-10.8) K/ul Hgb 10.5 L (14.0-18.0) g/dl Hct 31.5 L (40.1-51.0) % Plt Count 272 (130-400) K/uL BMP 11/28/21 05:55 Sodium 137 Potassium 3.7 Chloride 100 Carbon Dioxide 26 BUN 46 H Creatinine 5.76 H* D Glucose 155 H Calcium 8.0 L
--- NOTE | 2021-11-28 15:48 | Cardiology Progress Note ---
Date of Service November 28, 2021 Assessment & Plan (1) Acute heart failure with reduced ejection fraction and diastolic dys function: (2) Malignant pleural effusion: (3) Metastatic adenocarcinoma: (4) ESRD on hemodialysis: Plan: Severe left ventricular systolic function, LVEF ~25%. Small circumferential pericardial effusion Malignant pleural effusion Non-small cell lung carcinoma. Continue medical management of cardiomyopathy. ASA, metoprolol, atorvastatin. Amlodipine for HTN Case discussed with Dr Walker. Admission and Anticipated Discharge Date Admission Date: November 26, 2021 Subjective Patient seen in follow up. He denies complaints. Denies wheezing. Physical Exam Physical Exam: Temp Pulse Resp BP Pulse Ox O2 Del Method O2 Flow Rate 36.6 C 81 20 157/78 H 100 2 11/28/21 13:30 11/28/21 13:30 11/28/21 08:03 11/28/21 13:30 11/28/21 08:03 11/28/21 08:03 11/26/21 05:30 Constitutional: + thin; no acute distress Cardiovascular: Rate/Rhythm: regular rate Heart Sounds: + murmur (1/6 systolic murmur) Extremities: no edema Gastrointestinal (Abdomen): normal bowel sounds, soft, nontender, no hepatosplenomegaly
[2021-11-28 15:51] VITALS: BP 135/63; TEMP 97.7; O2SAT 98
--- NOTE | 2021-11-28 16:33 | Discharge Summary ---
Date of Service November 28, 2021 Admission HPI Per Admitting Provider CHIEF COMPLAINT: Shortness of breath. HISTORY OF PRESENT ILLNESS: This is a 71-year-old male with past medical history significant for type 2 diabetes, currently not on any medication, end- stage renal disease, on hemodialysis, history of Graves' disease, postoperative hypothyroidism, hyperlipidemia, COPD, ongoing tobacco abuse, still smoking 4-5 cigarettes daily, chronic diastolic CHF, mild aortic stenosis, history of atrial fibrillation, osteoarthritis. The patient has a diagnosis of right upper lobe non-small cell lung cancer, status post radiation treatment. Recent PET scan on 11/19/2021 found metastatic cancer, large right pleural effusion, moderate pericardial effusion and has a followup appointment with christopher Koenig/onc on 12/04/2021. Recently also found to have low-grade colitis, and he was admitted on 11/24/2021 with shortness of breath. Initially, in the ER, he was requiring BiPAP and because of large right pleural effusion, pulmonary saw him and he had a 1.7 liter fluid taken out. Cytology reveals metastatic adenocarcinoma and post thoracentesis chest x-ray was okay and he was doing okay and he was discharged home yesterday. There was a plan for PleurX catheter if the fluid recurs, but after going home, he was having lot of difficulty lying flat, he was having lot of shortness of breath when lying flat and cough with whitish phlegm, and he came back to the hospital. In the ER, he was saturating 88%; on 2 liters of oxygen, he was saturating fine. The patient denies any chest pain, no nausea, no vomiting, no headache, no blurred visions, no earache, no runny nose, no sore throat. No abdominal pain. Normal bowel and bladder movements. He says he is having a lot of small amounts of bowel movements . Sitting in the chair comfortably. Admission Exam Per Admitting Provider PHYSICAL EXAMINATION: GENERAL: The patient is of moderate build, not in acute distress. VITAL SIGNS: Temperature 36.9, pulse 82, respiratory rate 16, blood pressure 164/99, oxygen 95% on room air. HEENT: Pupils equal, round and reactive to light. Oral mucosa moist. NECK: No JVD, no neck masses. CARDIOVASCULAR: S1 and S2 heard. Regular rate and rhythm. No murmur, no gallop. RESPIRATORY SYSTEM: Normal AP diameter. No accessory muscle use. No wheezing, no crackles. Bibasilar diminished breath sounds. ABDOMEN: Soft, bowel sounds present, nontender, no distention. CENTRAL NERVOUS SYSTEM: Cranial nerves II-XII grossly intact, nonfocal. EXTREMITIES: No edema, no erythema. Principal Diagnosis Malignant Pleural effusion Acute systolic and diastolic heart failure Metastatic lung cancer Suspected pneumonia Discharge Data Allergies Allergy/AdvReac Type Severity Reaction Status Date / Time No Known Allergies Allergy NONE Verified 11/26/21 02:30 Consultations 11/26/21 04:57 ED Decision to Admit Stat 11/26/21 08:49 Consult Nephrology Routine Consult Pulmonology Routine 11/26/21 16:14 Consult Palliative Care Routine 11/27/21 07:00 Consult Cardiology Routine 11/27/21 13:42 Consult Oncology Routine Procedures Performed Laboratory Results WBC 10.03 K/ul (4.8-10.8) 11/28/21 05:55 RBC 3.68 M/uL (4.63-6.08) L 11/28/21 05:55 Hgb 10.5 g/dl (14.0-18.0) L 11/28/21 05:55 Hct 31.5 % (40.1-51.0) L 11/28/21 05:55 MCV 85.6 fL (80.0-100.0) 11/28/21 05:55 MCH 28.5 pg (25.0-34.0) 11/28/21 05:55 MCHC 33.3 g/dL (32.0-36.0) 11/28/21 05:55 RDW Std Deviation 47.2 fL (36.4-46.3) H 11/28/21 05:55 RDW Coeff of Shaylee 15.0 % (11.5-14.5) H 11/28/21 05:55 Plt Count 272 K/uL (130-400) 11/28/21 05:55 MPV 11.2 fL (9.4-12.4) 11/28/21 05:55 Immature Gran % (Auto) 0.6 % 11/27/21 06:11 Neut % (Auto) 80.2 % 11/27/21 06:11 Lymph % (Auto) 6.1 % 11/27/21 06:11 [place] % (Auto) 11.8 % 11/27/21 06:11 Eos % (Auto) 1.3 % 11/27/21 06:11 Baso % (Auto) 0.0 % 11/27/21 06:11 Neut # (Auto) 8.09 K/uL (1.4-6.5) H 11/27/21 06:11 Lymph # (Auto) 0.62 K/uL (1.2-3.4) L 11/27/21 06:11 [place] # (Auto) 1.19 K/uL (0.24-0.82) H 11/27/21 06:11 Eos # (Auto) 0.13 K/uL (0-0.50) 11/27/21 06:11 Baso # (Auto) 0.00 K/uL (0-0.2) 11/27/21 06:11 Immature Gran # (Auto) 0.06 K/uL (0.00-0.02) H 11/27/21 06:11 PT 10.9 Seconds (9.0-12.0) 11/26/21 02:10 INR 1.0 (0.9-1.1) 11/26/21 02:10 APTT 24.8 Seconds (21.0-31.0) 11/26/21 02:10 PTT Ratio 0.9 11/26/21 02:10 Sodium 137 mmol/L (136-145) 11/28/21 05:55 Potassium 3.7 mmol/L (3.5-5.1) 11/28/21 05:55 Chloride 100 mmol/L (98-107) 11/28/21 05:55 Carbon Dioxide 26 mmol/L (21-32) 11/28/21 05:55 Anion Gap 11 (3-11) 11/28/21 05:55 BUN 46 mg/dl (6-23) H 11/28/21 05:55 Creatinine 5.76 mg/dl (0.6-1.4) H* D 11/28/21 05:55 Est Cr Clr Drug Dosing 10.5 ml/min 11/28/21 05:55 Est GFR ( Amer) 10.4 ml/min 11/28/21 05:55 Est GFR (Non-Af Amer) 9.0 ml/min 11/28/21 05:55 BUN/Creatinine Ratio 8.0 (10-20) L 11/28/21 05:55 Glucose 155 mg/dl (70-99(Fasting)) H 11/28/21 05:55 Calcium 8.0 mg/dl (8.5-10.1) L 11/28/21 05:55 Magnesium 2.2 mg/dl (1.7-2.4) 11/27/21 06:11 Total Bilirubin 0.6 mg/dl (0.2-1.0) 11/26/21 02:10 AST 12 U/L (13-39) L 11/26/21 02:10 ALT 11 U/L (7-52) 11/26/21 02:10 Alkaline Phosphatase 69 U/L (34-104) 11/26/21 02:10 Troponin I High Sens 39.9 pg/ml (0-20) H 11/26/21 19:39 Total Protein 6.5 gm/dl (6.0-8.3) 11/26/21 02:10 Albumin 3.8 gm/dl (3.4-5.0) 11/26/21 02:10 Globulin 2.7 gm/dl (2.5-4.0) 11/26/21 02:10 Albumin/Globulin Ratio 1.4 (0.9-2) 11/26/21 02:10 Procalcitonin 0.42 ng/ml (0-0.5) 11/27/21 06:11 Nasal Screen MRSA (PCR) Negative (Negative) 11/26/21 Unknown Stl C. cayetanensis PCR Not Detected (NotDetected) 11/26/21 21:05 Stool Rotavirus A PCR Not Detected (NotDetected) 11/26/21 21:05 Stl Adenov F 40/41 PCR Not Detected (NotDetected) 11/26/21 21:05 Stool Astrovirus (PCR) Not Detected (NotDetected) 11/26/21 21:05 Stool Campylobacter PCR Not Detected (NotDetected) 11/26/21 21:05 Stl C. diff Tox A/B PCR Not Detected (NotDetected) 11/26/21 21:05 Stool Cryptosporidium PCR Not Detected (NotDetected) 11/26/21 21:05 Stl E.coli Shiga Tox PCR Not Detected (NotDetected) 11/26/21 21:05 Stl Enterotoxigenic E PCR Not Detected (NotDetected) 11/26/21 21:05 Stool EPEC (PCR) Not Detected (NotDetected) 11/26/21 21:05 Stool EAEC (PCR) Not Detected (NotDetected) 11/26/21 21:05 Stl E. histolytica PCR Not Detected (NotDetected) 11/26/21 21:05 Stool Giardia Lamblia PCR Not Detected (NotDetected) 11/26/21 21:05 Stool Salmonella PCR Not Detected (NotDetected) 11/26/21 21:05 Stool Sapovirus (PCR) Not Detected (NotDetected) 11/26/21 21:05 Stl P. shigelloides PCR Not Detected (NotDetected) 11/26/21 21:05 Stl Shigella/EIEC PCR Not Detected (NotDetected) 11/26/21 21:05 St Y.enterocolitica PCR Not Detected (NotDetected) 11/26/21 21:05 Stool Vibrio (PCR) Not Detected (NotDetected) 11/26/21 21:05 Stl Vibrio cholerae PCR Not Detected (NotDetected) 11/26/21 21:05 Stl Norovirus GI/GII PCR Not Detected (NotDetected) 11/26/21 21:05 SARS-CoV-2 (PCR) NEGATIVE (Negative) 11/26/21 04:20 Influenza Type A (PCR) Negative (Neg) 11/26/21 04:20 Influenza Type B (PCR) Negative (Neg) 11/26/21 04:20 RSV (RT-PCR) Negative (Neg) 11/26/21 04:20 Impressions Chest X-Ray 11/25/21 23:54 SINGLE VIEW CHEST CLINICAL HISTORY: Dyspnea FINDINGS: An AP, portable, upright chest radiograph is compared to study performed earlier the same day 11/25/2021. Correlation is made with chest CT dated 11/24/2021. The examination is degraded by portable technique and apical lordotic positioning. The heart is enlarged noting atherosclerotic calcification of the thoracic aorta. There is pulmonary vascular congestion. There are right larger than left pleural effusions with right basilar consolidation. A 3 cm nodular opacity is seen in the right upper lobe. No pneumothorax is identified. The skeletal structures are osteopenic. The bony thorax is grossly intact. IMPRESSION: 1. Cardiomegaly with pulmonary vascular congestion. 2. Right larger than left pleural effusions with right basilar consolidation. 3. A 3 cm nodular opacity is seen in the right upper lobe. This is suspicious for neoplasm when compared to yesterday's chest CT. ACT 112: Negative or not required by law. Electronically signed by: Dheeraj Monte M.D. 11/26/2021 7:[address] 11/26/21 04:23 CT OF THE CHEST WITHOUT IV CONTRAST CLINICAL HISTORY: Shortness of breath, increasing right lower lobe infiltrate. Lung cancer. COMPARISON STUDY: Chest CT November 24, 2021. Chest radiograph November 25, 2021. CT DOSE: 426.28 mGy.cm TECHNIQUE: Axial images of the chest were obtained without IV contrast. Images were reviewed in the axial, sagittal, and coronal planes. IV contrast was not administered for this examination. Automated exposure control was utilized for the study. A dose lowering technique was utilized adhering to the principles of ALARA. FINDINGS: Mediastinal and right hilar lymphadenopathy similar to CT of November 24, 2021. Index right paratracheal lymph node on axial image 44 of 341 measures 2 cm in short axis demonstrated. Index subcarinal lymph node on image 147 measures 3.1 cm. Cardiomegaly is noted with extensive coronary artery calcification. A trace pericardial effusion. Moderate right and trace left pleural effusions have decreased in size since CT of November 24, 2021. There is no pneumothorax. Extensive right lower lobe consolidation has developed. Interlobular septal thickening is present. There are additional ground glass opacities within the lungs. A 3.2 x 2.6 cm right upper lobe mass is similar to prior exam. A 2.1 cm irregular nodule within the anterior segment of the right upper lobe on image 153 is also unchanged. A few smaller pulmonary nodules including a 7 mm left lower lobe nodule are unchanged. These nodules remain indeterminate. IMPRESSION: 1. Interval development of extensive right lower lobe consolidation. This favors pneumonia however alveolar edema could appear similar. Additional groundglass opacities within the lungs. 2. Moderate right and trace left pleural effusions, decreased in size since CT of November 24, 2021. Interlobular septal thickening consistent with pulmonary edema. 3. Redemonstration of a 3.2 cm right upper lobe mass and mediastinal and right hilar lymphadenopathy. 4. Multiple additional indeterminate pulmonary nodules, as described above. ACT 112: Negative or not required by law. Electronically signed by: Jose Hastings M.D. 11/26/2021 7:31 AM Ordered Studies 11/26/21 04:23 CT chest diagnostic wo con Urgent Hospital Course (1) Dyspnea on exertion: Patient is a 71 yr male who presents with shortness of breath. Bilateral pleural effusion Volume overload: Likely multifactorial end-stage renal disease, CHF, Malignancy, Pneumonia Acute systolic and diastolic heart failure Presumed ischemic cardiopathy DD: Stress-induced cardiomyopathy --CT Chest:Interval development of extensive right lower lobe consolidation. This favors pneumonia however alveolar edema could appear similar. Additional groundglass opacities within the lungs. Moderate right and trace left pleural effusions, decreased in size since CT of November 24, 2021. Interlobular septal thickening consistent with pulmonary edema. Redemonstration of a 3.2 cm right upper lobe mass and mediastinal and right hilar lymphadenopathy. Multiple additional indeterminate pulmonary nodules, as described above. -- Thoracentesis pathology from 11/24/21: Malignant cells present consistent with metastatic adenocarcinoma, lung primary. --ECHO: Focal apical and apical anteroseptal hypokinesis. Otherwise diffuse severe hypokinesis present. EF 25 to 30%. Aortic valve is mildly calcified. Mild mitral regurgitation. Grade 2 diastolic dysfunction. Small circumferential pericardial effusion --Had thoracentesis on 11/24/2021. --Volume status managed through dialysis Appreciate nephrology input Refused Pleurx catheter in past Patient doesn't want extra fluid being removed through dialysis as recommended by Nephrology Appreciate Pulmonology, cardiology input Started on aspirin 81 mg daily thought to be not a candidate for coronary artery bypass grafting Poor prognosis Appreciate Palliative care Input HCAP Right lower lobe pneumonia Continue Zosyn, doxycycline Saturating well on room air Transition to PO antibiotics upon discharge End-stage renal disease on hemodialysis Appreciate nephrology input . Tobacco abuse Counselled to quit DM II currently not on any medications HbA1c 6.3 Monitor BGs Metastatic lung cancer Follow up with hematology/oncology. Appreciate Oncology Input Has follow up appointment with Hypertension Continue his amlodipine and metoprolol Monitor Hyperlipidemia on statin Hypothyroidism on levothyroxine DVT Px: Heparin SQ Code Status Full Code Disposition Home Total Time Total Time Spent Total Time Spent (In Minutes): 47 minutes Discharge Plan Discharge Items Patient Disposition: Home - Self-Care Reason For Visit: SOB Discharge Diagnosis: Malignant Pleural effusion Acute systolic and diastolic heart failure Metastatic lung cancer Suspected pneumonia Activity: Per Instructions section Exercise/Sports: Wait until after follow-up appointment Non-emergency contact: Primary Care Provider, Hog Stomach Preparer, Product Safety Lead and Oncologist Call non-emergency contact if: you have any medication questions, your symptoms worsen, your pain is concerning for you and you have a fever Follow-up/Referrals: Sabino Murphy MD [Primary Care Provider] - (Date & Time 12/01/2021 2:20 PM Provider Sabino Murphy MD Department [facility] ) Javy Paredes MD [Surgeon] - (Date & Time 12/04/2021 8:45 AM Provider Javy Paredes MD Department Hematology/Oncology [facility] ) Diet: Heart Healthy Addtl Attending Provider Instructions: Follow-up with your primary care physician on 12/01/2021 2:20 PM Follow-up with your oncologist Dr. Javy Paredes on 12/04/2021 8:45 AM Follow-up with your marine engineering consultant Dr. Cortez in 2-3 weeks --- Complete the antibiotic course as recommended by your customer relationship specialist ankur pected pneumonia. Seek immediate medical attention if your symptoms reoccur or worsen Please take all medications as instructed on discharge list below. Please call if you have any questions or problems. You can reach a [facility] hospitalist on duty at [facility] 24 hours a day by calling [phone] Call your Primary Care doctor if any of the following symptoms or problems start or get worse: * Shortness of breath or difficulty breathing * Wake up at night short of breath * Chest pain * Cough * Swelling of your hands, feet, or legs * More fatigued or tired with your normal activity * Palpitations - sudden fast heart beats WEIGHT * Weigh yourself every morning after using the bathroom. * Use the same scale. * Wear the same amount of clothing. * Write your weight down on a chart. * Call your Primary Care doctor if you gain more than 2-3 pounds in 1-2 days. MEDICATIONS * Use this discharge instruction sheet for medication instructions. * Take your medications at the time your doctor ordered. * Do not skip a dose of your medicines. * If you miss a dose of medicine, take it as soon as possible, but DO NOT DOUBLE A DOSE. * Read your medicine information when you get home. * Know all of the side effects of your medicine. If in doubt, ask your pharmacist * Call your Primary Care doctor's office if you have any side effects. * Be sure all of your doctors know what medicine and herbs you take (including cold, flu, and herbal medicine). Take the following with you to your follow-up doctor appointments: * Weight Chart * Medication List * List of questions Do not drink excessive alcohol, beer or wine. Pending Studies at Discharge: No Stand-Alone Forms: [facility], Smoking Cessation Medications and DC Order Prescriptions: New aspirin 81 mg Tablet,Delayed Release (Dr/Ec) 81 mg PO QAM Qty: 30 1RF doxycycline hyclate 100 mg tablet 100 mg PO BID Qty: 9 0RF amoxicillin-pot clavulanate 250-125 mg tablet 1 tab PO BID Qty: 9 0RF Continued multivitamin [Multiple Vitamins] Tablet 1 tab PO DAILY atorvastatin 40 mg tablet 40 mg PO QAM levothyroxine [Euthyrox] 137 mcg tablet 137 mcg PO DAILYBB cyclobenzaprine 10 mg tablet 5 mg PO HS PRN (Reason: Pain) acetaminophen 325 mg Tablet 650 mg PO Q4H PRN (Reason: pain) Qty: 30 0RF amlodipine [Norvasc] 5 mg Tablet 5 mg PO QAM Qty: 30 0RF buspirone 5 mg tablet 2.5 mg PO BID metoprolol tartrate 100 mg tablet See Rx Instructions .ROUTE .COMPLEX Rx Instructions: TAKES 100 MG QAM, THEN 50 MG QPM. varenicline 0.5 mg tablet 0.5 mg PO DAILY albuterol sulfate 90 mcg/actuation HFA aerosol inhaler 2 puff INHALATION Q6H PRN (Reason: Cough) sevelamer carbonate 800 mg tablet 2,400 mg PO TIDM Discharge Orders: Discharge Order (Routine); Ordered 11/28/21 Ordered By: Srinivasan Harp Admission Data Admit Date/Time: 11/26/21 06:31 Attending Provider: Srinivasan Harp Admit Provider: Palepu,Chaka P. Primary Care Provider: Sabino Murphy Other Providers: Chaka Sorto ; Michael Brown ; Victor Hugo Walker ; Itzel Dale ; Lupillo Cortez ; Lev Brower
[2021-11-28 16:39] VITALS: PULSE 88
== END 2021-11-28 17:35 | disposition home or self-care (01) | DRG 180 ==
LOC: ED 23:42 → SUATTDRO 11-26 06:31 → 2N 11-26 06:31

== ENCOUNTER 2021-12-15 08:26 | Inpatient (IN) ==
[2021-12-15] MEDS ORDERED: OPTIRAY 320 500ml IV ONE (08:35)
--- NOTE | 2021-12-15 08:58 | CT Scan Report ---
UNENHANCED CT OF THE BRAIN; CT ANGIOGRAM OF THE BRAIN; CT ANGIOGRAM OF THE NECK CLINICAL HISTORY: Strokelike symptoms. Lung cancer. COMPARISON STUDY: CT of the brain dated 02/23/2021. CT angiogram of the head and neck dated 07/04/[address] dated 11/26/2021. TECHNIQUE: Unenhanced axial CT scan of the brain is performed. Subsequently, following the IV adminis tration of 120 of Optiray 320, CT angiogram of the head and neck was performed from the aortic arch t o the vertex. Images are reviewed in the axial, sagittal, and coronal planes. 3-D MIPS images are cre ated and assessed. IV contrast was administered without complication. All measurements were calculate d based on NASCET criteria. A dose lowering technique was utilized adhering to the principles of ALA RA. CT DOSE: 1132.14 mGy.cm FINDINGS: Brain parenchyma: There is age-related involutional change noting mild subcortical and periventricula r microangiopathic disease. Chronic lacunar infarcts are noted in both thalami and the right basal ga nglia.. There is no hemorrhage, mass effect, or evidence of acute territorial ischemia by CT criteria . There is no evidence of enhancing mass lesion on the angiogram phase images. The ventricles, sulci, and cisterns are prominent secondary to involutional change. Arambula-white matter differentiation is pr eserved. No extra-axial fluid collection is seen. Thoracic aorta: There is atherosclerotic calcification of the thoracic aorta. Visualized portions of the thoracic aorta are normal in caliber. The aortic arch demonstrates standard 3-vessel anatomy. Right carotid arterial system: The right common carotid artery is patent. Atherosclerotic plaque and irregularity causes less than 50% luminal narrowing in the mid common carotid artery. There is advanc ed atherosclerotic calcification of the carotid bulb. The internal and external carotid arteries are widely patent in the neck. Left carotid arterial system: The left common carotid artery is widely patent, as with a left interna l and external carotid arteries. Advanced atherosclerotic plaque is seen throughout the common caroti d artery and in the carotid bulb. Vertebral arteries: The vertebral arteries are patent bilaterally noting right-sided dominance. Ather osclerotic plaque is seen throughout. This causes less than 50% narrowing of the proximal right verte bral artery seen on axial image #126. Subclavian arteries: Widely patent bilaterally. Intracranial vasculature: There is atherosclerotic calcification of the cavernous carotid and vertebr al arteries The internal carotid arteries are patent at the skull base, as are the anterior and middl e cerebral arteries bilaterally. The vertebrobasilar system and posterior cerebral arteries are paten t noting atherosclerotic plaque and irregularity. There is a right posterior communicating artery. Th e right vertebral artery is dominant. There is no aneurysm, high-grade stenosis, or focal vessel cut off seen throughout the intracranial circulation. Jugular veins: Patent bilaterally. Dural sinuses: Patent. Upper chest: Emphysematous change is noted. There is an accessory azygos fissure. A right pleural eff usion is partially visualized. A 6 mm right apical nodule is seen on image #88 and a 6 mm left upper lobe nodule is seen on image #55. Mediastinal lymphadenopathy is partially imaged. Soft tissues: The visualized pharyngeal soft tissues are normal in appearance noting angiographic pha se technique. The oropharyngeal airway appears widely patent. The thyroid gland is not identified and presumed surgically absent. The salivary glands are normal in appearance. There is left lower cervic al chain lymphadenopathy. The largest node is seen on image #162 and measures up to 1.7 cm. Skeletal structures: The skeletal structures are osteopenic. The calvarium appears intact. The cervic al spine appears maintained noting advanced multilevel spondylosis. No lytic or blastic lesion is see n. Orbits: The bony orbits are intact. Orbital contents are normal as visualized noting bilateral ocular lens implants. Sinuses and mastoids: The paranasal sinuses are clear. There is a right mastoid effusion. The left ma stoid air cells are well pneumatized. IMPRESSION: 1. There is no hemorrhage, mass effect, or evidence of acute territorial ischemia by CT criteria. 2. Unremarkable CT angiogram of the brain noting advanced atherosclerotic plaque and irregularity. 3. Unremarkable CT angiogram of the neck noting advanced atherosclerotic plaque and irregularity. 4. Emphysema, mediastinal lymphadenopathy, upper lobe pulmonary nodules, right pleural effusion, and left cervical adenopathy as above. Upper lobe pulmonary nodules have increased in size as compared to 11/26/2021. ACT 112: Negative or not required by law. Electronically signed by: Dheeraj Monte M.D. 12/15/2021 8:56 AM
[2021-12-15 09:02] LABS: Basophils # (auto) 0.03 K/uL (0-0.2); Basophils % (auto) 0.3 %; Eosinophils # (auto) 0.11 K/uL (0-0.50); Hematocrit (blood only) 31.7 % (40.1-51.0); Hemoglobin 10.6 g/dl (14.0-18.0); Immature Granulocytes # (auto) 0.06 K/uL (0.00-0.02); Immature Granulocytes % (auto) 0.5 %; Lymphocytes # (auto) 1.04 K/uL (1.2-3.4); Lymphocytes % (auto) 9.3 %; Mean Corpuscular Hemoglobin 28.5 pg (25.0-34.0); Mean Corpuscular Hgb Conc 33.4 g/dL (32.0-36.0); Mean Corpuscular Volume 85.2 fL (80.0-100.0); Mean Platelet Volume 9.8 fL (9.4-12.4); Monocytes # (auto) 1.27 K/uL (0.24-0.82); Monocytes % (auto) 11.3 %; Neutrophils % (auto) 77.6 %; Platelet Count 321 K/uL (130-400); RDW Standard Deviation 45.9 fL (36.4-46.3); Red Blood Count 3.72 M/uL (4.63-6.08); White Blood Count 11.21 K/ul (4.8-10.8)
[2021-12-15 09:13] LABS: INR 1.2 (0.9-1.1); Partial Thromboplastin Ratio 1.2; Partial Thromboplastin Time 33.9 Seconds (21.0-31.0); Prothrombin Time 12.3 Seconds (9.0-12.0)
[2021-12-15] MEDS ORDERED: ONDANSETRON INJ 2 MG/ML 2 ML VIAL IV STA (09:14)
[2021-12-15] MEDS ORDERED: ONDANSETRON INJ 2 MG/ML 2 ML VIAL ONE (09:15)
--- NOTE | 2021-12-15 09:18 | XRay Report ---
SINGLE VIEW CHEST CLINICAL HISTORY: Strokelike symptoms. FINDINGS: An AP, portable, upright chest radiograph is compared to study dated 11/25/2021 and correla maria with chest CT dated 11/26/2021. The examination is degraded by portable technique and apical lord otic positioning. The heart is enlarged noting atherosclerotic calcification of the thoracic aorta. T he pulmonary vasculature is noncongested. There is edema and chronic interstitial thickening is simil ar to previous. There is a layering right pleural effusion with right basilar consolidation. A 3 cm r ight upper lobe pulmonary lesion is again noted. Additional small pulmonary nodules seen by CT are no t well assessed by x-ray. An accessory azygos fissure is incidentally noted. No pneumothorax is seen. The skeletal structures are osteopenic. The bony thorax is grossly intact. Arthritic change is seen in the shoulders. IMPRESSION: 1. Cardiomegaly and emphysema. 2. Layering right pleural effusion with right basilar consolidation. This is similar to previous. 3. A 3 cm right upper lobe pulmonary lesion is again noted. 4. Additional small pulmonary nodules seen by CT are not well assessed by x-ray. ACT 112: Negative or not required by law. Electronically signed by: Dheeraj Monte M.D. 12/15/2021 9:17 AM
[2021-12-15 09:38] LABS: Albumin Globulin Ratio 1.1 (0.9-2); Albumin Level 3.2 gm/dl (3.4-5.0); Bilirubin,Total 0.7 mg/dl (0.2-1.0); Calcium 8.2 mg/dl (8.5-10.1); Est GFR (African American) 7.4 ml/min; Est GFR (Non-African American) 6.4 ml/min; Globulin 2.9 gm/dl (2.5-4.0); Magnesium 2.1 mg/dl (1.7-2.4); Potassium 4.2 mmol/L (3.5-5.1); Total Protein 6.1 gm/dl (6.0-8.3)
--- NOTE | 2021-12-15 10:15 | Emergency Department Note ---
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 on the angiogram phase images. The ventricles, sulci, and cisterns are prominent secondary to involutional change. Arambula-white matter differentiation is preserved. No extra- axial fluid collection is seen. Thoracic aorta: There is atherosclerotic calcification of the thoracic aorta. Visualized portions of the thoracic aorta are normal in caliber. The aortic arch demonstrates standard 3-vessel anatomy. Right carotid arterial system: The right common carotid artery is patent. Atherosclerotic plaque and irregularity causes less than 50% luminal narrowing in the mid common carotid artery. There is advanced atherosclerotic calcificatio n of the carotid bulb. The internal and external carotid arteries are widely patent in the neck. Left carotid arterial system: The left common carotid artery is widely patent, as with a left internal and external carotid arteries. Advanced atherosclerotic plaque is seen throughout the common carotid artery and in the carotid bulb. Vertebral arteries: The vertebral arteries are patent bilaterally noting right- sided dominance. Atherosclerotic plaque is seen throughout. This causes less than 50% narrowing of the proximal right vertebral artery seen on axial image #126. Subclavian arteries: Widely patent bilaterally. Intracranial vasculature: There is atherosclerotic calcification of the cav ernous carotid and vertebral arteries The internal carotid arteries are patent at the skull base, as are the anterior and middle cerebral arteries bilaterally. The vertebrobasilar system and posterior cerebral arteries are patent noting atherosclerotic plaque and irregularity. There is a right posterior communicating artery. The right vertebral artery is dominant. There is no aneurysm, high-grade stenosis, or focal vessel cut off seen throughout the intracranial circulation. Jugular veins: Patent bilaterally. Dural sinuses: Patent. Upper chest: Emphysematous change is noted. There is an accessory azygos fissure. A right pleural effusion is partially visualized. A 6 mm right apical nodule is seen on image #88 and a 6 mm left upper lobe nodule is seen on image #55. Mediastinal lymphadenopathy is partially imaged. Soft tissues: The visualized pharyngeal soft tissues are normal in appearance noting angiographic phase technique. The oropharyngeal airway appears widely patent. The thyroid gland is not identified and presumed surgically absent. The salivary glands are normal in appearance. There is left lower cervical chain lymphadenopathy. The largest node is seen on image #162 and measures up to 1.7 cm. Skeletal structures: The skeletal structures are osteopenic. The calvarium appears intact. The cervical spine appears maintained noting advanced multilevel spondylosis. No lytic or blastic lesion is seen. Orbits: The bony orbits are intact. Orbital contents are normal as visualized noting bilateral ocular lens implants. Sinuses and mastoids: The paranasal sinuses are clear. There is a right mastoid effusion. The left mastoid air cells are well pneumatized. IMPRESSION: 1. There is no hemorrhage, mass effect, or evidence of acute territorial ischemia by CT criteria. 2. Unremarkable CT angiogram of the brain noting advanced atherosclerotic plaque and irregularity. 3. Unremarkable CT angiogram of the neck noting advanced atherosclerotic plaque and irregularity. 4. Emphysema, mediastinal lymphadenopathy, upper lobe pulmonary nodules, right pleural effusion, and left cervical adenopathy as above. Upper lobe pulmonary nodules have increased in size as compared to 11/26/2021. ACT 112: Negative or not required by law. Electronically signed by: Dheeraj Monte M.D. 12/15/2021 8:56 AM ECG Data Attestation: I personally reviewed and interpreted this ECG as follows: Additional Comments: Twelve-lead EKG: Per my interpretation shows a sinus rhythm with PACs. No ST elevation. No PVCs. Normal QTC. Rate is around 90. MDM Narrative 71-year-old male presents with strokelike symptoms. A stroke alert was called prior to the patient's arrival. Exam as noted above. Dr. Lnida from neurology evaluated the patient. The patient does have a history of diabetes, dialysis dependent renal failure as well as GI bleeding in the past related to Coumadin use. After discussion with the family, the decision was made not to proceed with thrombolytics due to the increased risks, after discussion with family. The patient has a negative CT a of the head and neck as well as CT scan of the head. Chest x-ray was negative for acute disease. EKG shows sinus rhythm. He does have a history of paroxysmal A. fib. Troponin was mildly elevated. Creatinine is 7.6. He is a dialysis dependent patient. Just came from dialysis. CBC and chemistry panel was unremarkable. The patient will be seen by the hospitalist for further evaluation and care. Impression & Plan Stroke Discharge Plan Visit Data Chief Complaint: Stroke Alert ED Provider: Neto Olivia Discharge Problem: Stroke Patient Disposition: Being Evaluated by Hospitalist Forms Stand Alone Forms: My [facility] Prescriptions Prescriptions: No Action multivitamin [Multiple Vitamins] Tablet 1 tab PO DAILY atorvastatin 40 mg tablet 40 mg PO QAM levothyroxine [Euthyrox] 137 mcg tablet 137 mcg PO DAILYBB cyclobenzaprine 10 mg tablet 5 mg PO HS PRN (Reason: Pain) acetaminophen 325 mg Tablet 650 mg PO Q4H PRN (Reason: pain) Qty: 30 0RF amlodipine [Norvasc] 5 mg Tablet 5 mg PO QAM Qty: 30 0RF buspirone 5 mg tablet 2.5 mg PO BID metoprolol tartrate 100 mg tablet See Rx Instructions .ROUTE .COMPLEX Rx Instructions: TAKES 100 MG QAM, THEN 50 MG QPM. varenicline 0.5 mg tablet 0.5 mg PO DAILY aspirin 81 mg Tablet,Delayed Release (Dr/Ec) 81 mg PO QAM Qty: 30 1RF albuterol sulfate 90 mcg/actuation HFA aerosol inhaler 2 puff INHALATION Q6H PRN (Reason: Cough) sevelamer carbonate 800 mg tablet 2,400 mg PO TIDM Referrals Referrals: Sabino Murphy MD [Primary Care Provider] -
--- NOTE | 2021-12-15 10:20 | Electrocardiogram Report ---
Test Reason : Blood Pressure : / mmHG Vent. Rate : 100 BPM Atrial Rate : 100 BPM P-R Int : 156 ms QRS Dur : 090 ms QT Int : 352 ms P-R-T Axes : 060 021 028 degrees QTc Int : 454 ms Sinus rhythm with Premature atrial complexes Abnormal ECG When compared with ECG of 26-NOV-2021 01:21, Premature atrial complexes are now Present Confirmed by Fred Martínez ([id number]) on 12/15/2021 10:19:47 AM Referred By: REFERRED SELF Confirmed By:Fred Martínez
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
[2021-12-15] MEDS ORDERED: PHARMACIST DISCHARGE MED REC CONSULT PRN (13:14)
[2021-12-15] MEDS ORDERED: ACETAMINOPHEN 325 MG TAB PO PRN (15:12)
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
[2021-12-15] MEDS: busPIRone 5 MG TAB PO SCH (19:51)
[2021-12-15] MEDS: METOPROLOL TARTRATE 50 MG TAB PO SCH (19:51)
[2021-12-15] MEDS ORDERED: oxyCODONE HCL IR 5 MG TAB (IMMEDIATE RELEASE) PO STA (21:03)
[2021-12-15] MEDS ORDERED: oxyCODONE HCL IR 5 MG TAB (IMMEDIATE RELEASE) PO PRN (21:03)
[2021-12-16] MEDS: LEVOTHYROXINE SODIUM 137 MCG TABLET PO SCH (06:19)
[2021-12-16 06:39] LABS: Basophils # (auto) 0.04 K/uL (0-0.2); Basophils % (auto) 0.4 %; Eosinophils # (auto) 0.18 K/uL (0-0.50); Eosinophils % (auto) 1.8 %; Hematocrit (blood only) 29.5 % (40.1-51.0); Immature Granulocytes # (auto) 0.06 K/uL (0.00-0.02); Immature Granulocytes % (auto) 0.6 %; Lymphocytes # (auto) 0.79 K/uL (1.2-3.4); Lymphocytes % (auto) 7.9 %; Mean Corpuscular Hemoglobin 28.2 pg (25.0-34.0); Mean Corpuscular Hgb Conc 33.9 g/dL (32.0-36.0); Mean Corpuscular Volume 83.1 fL (80.0-100.0); Mean Platelet Volume 9.8 fL (9.4-12.4); Monocytes # (auto) 1.39 K/uL (0.24-0.82); Monocytes % (auto) 13.9 %; Neutrophils # (auto) 7.56 K/uL (1.4-6.5); Neutrophils % (auto) 75.4 %; Platelet Count 347 K/uL (130-400); RDW Standard Deviation 45.7 fL (36.4-46.3); Red Blood Count 3.55 M/uL (4.63-6.08); White Blood Count 10.02 K/ul (4.8-10.8)
[2021-12-16 07:11] LABS: BUN Creatinine Ratio 4.5 (10-20); Calcium 8.1 mg/dl (8.5-10.1); Chol HDL Ratio 3.4 (0-5); Creatinine Clr Calc Pharmacy 6.9 ml/min; Est GFR (African American) 6.3 ml/min; Est GFR (Non-African American) 5.4 ml/min
[2021-12-16] MEDS ORDERED: SODIUM CHLORIDE 0.9% 1000ML 1,000 ML IV PRN (07:28)
[2021-12-16] MEDS ORDERED: HEPARIN SOD (PORCINE) 1000 UNIT/ML IV SCH (08:00)
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
[2021-12-16 08:34] LABS: Estimated Average Glucose 148 mg/dl; Hemoglobin A1C 6.8 % (4.5-5.6)
[2021-12-16] MEDS ORDERED: GADOBUTROL 65ML VIAL IV ONE (09:33)
--- NOTE | 2021-12-16 10:28 | Pharmacy Report ---
- Date of Service December 16, 2021 - Pharmacy CVA/TIA Medication Review Medications to Prevent Stroke handout has been added to the patients discharge packet. Antiplatelet(s) * Aspirin 81 mg Cholesterol * High intensity statin: Atorvastatin 40 mg daily. DVT Prophylaxis * SCD knee Therapeutic Anticoagulation * No history of Afib/Aflutter noted, however after MRI suspicion for embolic infarcts. Anticoag recommended by neurology- started on Eliquis (currently on hold for OR 11/10 am). Type 2 Diabetes * Patient has T2DM, but per Dr. Tejeda, a diabetes medication with proven CVD benefit will be deferred to their outpatient provider due to familiarity with risks/benefits of such therapies. "Medications to prevent stroke" handout has already been added to the patient's discharge packet, which instructs the patient to follow up with their outpatient provider to evaluate which diabetes medication with proven CVD benefit is best for them. Patient is not a candidate for SGLT2 d/t ESRD on dialysis.
--- NOTE | 2021-12-16 11:38 | Magnetic Resonance Report ---
MR brain wo/w con CLINICAL HISTORY: CVA, brain mets TECHNIQUE: Multiplanar and multisequence MR images of the brain were obtained prior to and following administration of gadolinium contrast. Comparison: Comparison is made to CTA head and neck 12/15/2021 FINDINGS: No abnormal restricted diffusion is identified. There are extensive foci of restricted diffusion pred ominantly in the bilateral posterior cerebral artery distribution, with some foci noted in the middle cerebral artery distribution as well. There are redemonstrated findings of old right lacunar infarct . There is associated edema at the region of infarct without significant mass effect or midline shift . Ex vacuo ventriculomegaly and sulcal enlargement is noted compatible with diffuse encephalomalacia. No mass or abnormal enhancement is seen. There is no mass effect or midline shift. There is no evide nce of acute intraparenchymal hemorrhage. No extra axial fluid collections are seen. The corpus callo sum, pituitary gland, and cerebellar tonsils appear grossly unremarkable. Flow voids of the major intracranial arterial vessels are identified. The imaged portions of the para nasal sinuses, mastoid air cells, and orbits are unremarkable. Incidental note is made of bilateral i ntraocular lens replacements. IMPRESSION: Innumerable foci of restricted diffusion predominantly in the bilateral posterior circulation are con cerning for embolic infarcts in this patient with history of severe heart failure. Of note, no abnorm al enhancing lesions are seen to suggest intracranial metastasis. ACT 112: Negative or not required by law. Electronically signed by: Baudilio Aly M.D. 12/16/2021 11:36 AM
[2021-12-16] MEDS: SEVELAMER HCL 800 MG TABLET PO SCH ×3 (11:44→17:19)
[2021-12-16] MEDS: METOPROLOL TARTRATE 100 MG TAB PO SCH (13:10)
--- NOTE | 2021-12-16 13:26 | Nephrology Progress Note ---
Date of Service December 16, 2021 Assessment & Plan (1) ESRD on hemodialysis: Plan: ESRD pt admitted with presumed brainstem stroke chemistries/volume status acceptable for now >>>defer to neurology and primary service for most appropriate blood pressure targets - in general will aim w/ HD to keep sbp >120 and more in 130-150s range >>plan 3 hr tx today immediately after MRI; risks /benefits/ indications/alternatives of IV contrast for MRI d/w pt's on 12/15 and w/ pt on more limited basis (he is still not oriented x 3) 12/16; very small chance of complication such as nephrogenic systemic sclerosis with IV con for MRI in dialysis pt but complication is lethal if it happens; she agrees to proceed -for HD tomorrow per routine -given R pleural effusion > will do 1.5L fluid limit -for now heart healthy diet ok > likely to need dialysis diet eventually -daily bmp, cbc Admission and Anticipated Discharge Date Admission Date: December 15, 2021 Subjective no interval acute events. less L sided weakness and aphasia today>pt denies vi sual changes/impairment. no sob; no n/v; no musculoskeletal pain Review of Systems Review of Systems: All systems reviewed & are unremarkable except as noted in Subjective Physical Exam Constitutional: well developed, well nourished, cooperative and + lethargic (but less than yesterday); no acute distress Eyes: + EOM not intact ENMT: Ears: no external ear abnormality Nose: no external nose abnormality Mouth: + dry oral mucous membranes Neck: no nuchal rigidity Respiratory: normal respiratory effort Auscultation: + diminished lung sounds and + crackles (L base) Cardiovascular: Rate/Rhythm: regular rate and regular rhythm Extremities: + AV fistula; no edema Gastrointestinal (Abdomen): Inspection/Auscultation: normal bowel sounds Percussion/Palpation: abdomen soft; abdomen nontender Skin: no rashes, warm and dry Neurologic: maneuvers readily for exam, no tremor, fluent speech Psychiatric: Orientation: oriented to person and oriented to place Genitourinary: no العلي Results & Data ([facility]) Vital Signs (Past 12 Hours) Vital Signs Temp Pulse Pulse Pulse Resp BP BP 12/16/21 12:30 80 131/72 12/16/21 12:00 83 128/72 12/16/21 11:30 81 145/72 H 12/16/21 11:15 78 145/78 H 12/16/21 11:00 77 135/73 12/16/21 10:45 78 137/77 12/16/21 07:30 70 12/16/21 10:38 77 137/77 12/16/21 10:16 36.8 C 79 12/16/21 09:14 12/16/21 07:33 36.7 C 82 18 148/72 H 12/16/21 03:07 36.7 C 65 18 136/71 Pulse Ox O2 Del Method 12/16/21 12:30 12/16/21 12:00 12/16/21 11:30 12/16/21 11:15 12/16/21 11:00 12/16/21 10:45 12/16/21 07:30 12/16/21 10:38 12/16/21 10:16 12/16/21 09:14 Room Air 12/16/21 07:33 95 Room Air 12/16/21 03:07 97 Room Air Laboratory Results 12/16/21 06:16 12/16/21 06:16
[2021-12-16] MEDS: ASPIRIN 81 MG ECTAB PO SCH (14:26)
[2021-12-16] MEDS: busPIRone 5 MG TAB PO SCH ×2 (14:26→21:22)
[2021-12-16] MEDS: ATORVASTATIN 40 MG TAB PO SCH (14:27)
--- NOTE | 2021-12-16 14:56 | Hospitalist Progress Note ---
Date of Service December 16, 2021 Assessment & Plan (1) Stroke: Plan: Acute CVA Likely cardioembolic etiology Brain MRI: Innumerable foci of restricted diffusion predominantly in the bilateral posterior circulation are concerning for embolic infarcts in this patient with history of severe heart failure. Of note, no abnormal enhancing lesions are seen to suggest intracranial metastasis. Head and neck CT angiogram: Unremarkable CT angiogram of the brain noting advanced atherosclerotic plaque and irregularity. Unremarkable CT angiogram of the neck noting advanced atherosclerotic plaque and irregularity. Fortunately, patient's neurologic symptoms have resolved Evaluated by neurology service, : Acute CVA likely cardioembolic etiology given patient's recent echo in November 27, 2021 revealing EF of 25 to 30%, focal severe hypokinesis to akinesis of the apex and septum Moderate to severe global hypokinesis otherwise noted Recommend anticoagulation, cardiology service consultation We will start with Eliquis 5 mg p.o. twice daily after discussion with patient's Discussed benefits and risks, she is understanding and agreeable Hold aspirin 81 mg p.o. daily if okay with cardiology service PT and OT evaluation (2) Metastatic adenocarcinoma: Plan: Admitting service notes: Follows with Dr. Paredes - scheduled for port placement 12/19 and initiation of immunotherapy on 12/23 (3) ESRD on hemodialysis: Plan: -nephrology for HD while admitted (4) COPD (chronic obstructive pulmonary disease): (5) DMII (diabetes mellitus, type 2): Plan: Not currently on any medications for this and does not follow a diabetic diet (6) Diastolic CHF: (7) Essential hypertension: (8) Tobacco dependence syndrome: Plan Disposition Anticipate discharge to home when medically stable Admission and Anticipated Discharge Date Admission Date: December 15, 2021 Subjective Follow-up for acute CVA, etc. Seen in the hemodialysis unit Patient awake and alert, oriented, answers questions appropriately Comfortable, not in distress States he feels much better today compared to yesterday Denies confusion, difficulty with speaking, swallowing, focal neurologic deficits including weakness or numbness States he was ambulating in his room today with no problems no chest pain, dyspnea, palpitations, dizziness Review of Systems Review of Systems: all noted and negative except for above Physical Exam Physical Exam: General- oriented x 3, not in distress, speaks in sentences with no effort or accessory muscle use Eyes- anicteric Neck- no JVD Lungs- clear breath sounds bilaterally, no rales/wheezes Heart- normal rate, regular rhythm; no murmurs Abdomen- normal bowel sounds, nondistended, soft, nontender Extremities- no pretibial edema, no calf tenderness Neuro- alert, oriented x 3; cranial nerves II through XII grossly intact, motor strength 100% all extremities, no other gross focal neurologic deficits Skin- warm & dry Results & Data Results & Data ([facility]) Vital Signs (Past 12 Hours) Vital Signs Temp Pulse Pulse Pulse Resp BP BP 12/16/21 13:30 79 143/73 H 12/16/21 13:46 36.9 C 78 135/75 12/16/21 13:00 80 137/81 12/16/21 12:30 80 131/72 12/16/21 12:00 83 128/72 12/16/21 11:30 81 145/72 H 12/16/21 11:15 78 145/78 H 12/16/21 11:00 77 135/73 12/16/21 10:45 78 137/77 12/16/21 07:30 70 12/16/21 10:38 77 137/77 12/16/21 10:16 36.8 C 79 12/16/21 09:14 12/16/21 07:33 36.7 C 82 18 148/72 H 12/16/21 03:07 36.7 C 65 18 136/71 Pulse Ox O2 Del Method 12/16/21 13:30 12/16/21 13:46 12/16/21 13:00 12/16/21 12:30 12/16/21 12:00 12/16/21 11:30 12/16/21 11:15 12/16/21 11:00 12/16/21 10:45 12/16/21 07:30 12/16/21 10:38 12/16/21 10:16 12/16/21 09:14 Room Air 12/16/21 07:33 95 Room Air 12/16/21 03:07 97 Room Air all noted and reviewed including below (1) Diastolic CHF Heart failure chronicity: acute on chronic Qualified Code(s): I50.33 - Acute on chronic diastolic (congestive) heart failure (2) Stroke CVA mechanism: other Qualified Code(s): I63.89 - Other cerebral infarction
[2021-12-16] MEDS: HEPARIN SOD (PORCINE) 1000 UNIT/ML IV SCH ×2 (15:02→15:03)
[2021-12-16] MEDS: APIXABAN 5 MG TABLET PO SCH (16:31)
[2021-12-16] MEDS ORDERED: Nursing to Pharmacy Communication SCH (19:45)
[2021-12-17] MEDS: LEVOTHYROXINE SODIUM 137 MCG TABLET PO SCH (06:46)
[2021-12-17] MEDS ORDERED: SODIUM CHLORIDE 0.9% 1000ML 1,000 ML IV PRN (07:18)
[2021-12-17] MEDS ORDERED: HEPARIN SOD (PORCINE) 1000 UNIT/ML IV ONE (07:29)
[2021-12-17] MEDS: APIXABAN 5 MG TABLET PO SCH (08:04)
[2021-12-17] MEDS: busPIRone 5 MG TAB PO SCH ×2 (08:04→20:12)
[2021-12-17] MEDS: SEVELAMER HCL 800 MG TABLET PO SCH ×3 (08:04→16:53)
[2021-12-17] MEDS: METOPROLOL TARTRATE 100 MG TAB PO SCH (08:05)
[2021-12-17] MEDS: ATORVASTATIN 40 MG TAB PO SCH (08:05)
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
[2021-12-17 10:23] LABS: Basophils # (auto) 0.06 K/uL (0-0.2); Basophils % (auto) 0.7 %; Eosinophils # (auto) 0.23 K/uL (0-0.50); Eosinophils % (auto) 2.7 %; Hematocrit (blood only) 31.1 % (40.1-51.0); Hemoglobin 10.2 g/dl (14.0-18.0); Immature Granulocytes # (auto) 0.06 K/uL (0.00-0.02); Immature Granulocytes % (auto) 0.7 %; Lymphocytes # (auto) 0.54 K/uL (1.2-3.4); Lymphocytes % (auto) 6.4 %; Mean Corpuscular Hemoglobin 28.1 pg (25.0-34.0); Mean Corpuscular Hgb Conc 32.8 g/dL (32.0-36.0); Mean Corpuscular Volume 85.7 fL (80.0-100.0); Mean Platelet Volume 9.8 fL (9.4-12.4); Monocytes # (auto) 1.18 K/uL (0.24-0.82); Monocytes % (auto) 13.9 %; Neutrophils # (auto) 6.39 K/uL (1.4-6.5); Neutrophils % (auto) 75.6 %; Platelet Count 382 K/uL (130-400); RDW Standard Deviation 46.8 fL (36.4-46.3); Red Blood Count 3.63 M/uL (4.63-6.08); White Blood Count 8.46 K/ul (4.8-10.8)
[2021-12-17 10:55] LABS: Creatinine Clr Calc Pharmacy 7.6 ml/min; Est GFR (African American) 7.1 ml/min; Est GFR (Non-African American) 6.1 ml/min
--- NOTE | 2021-12-17 11:02 | Nephrology Progress Note ---
Date of Service December 17, 2021 Assessment & Plan (1) ESRD on hemodialysis: Plan: ESRD pt admitted with presumed brainstem stroke, MRI w/ embolic infarcts in post circulation chemistries/volume status acceptable for now >>>defer to neurology and primary service for most appropriate blood pressure targets - in general will aim w/ HD to keep sbp >120 and more in 130-150s range -had MRI w/ con then HD on 10/16 >>plan 3.5 hr tx today per routine -given R pleural effusion > will do 1.5L fluid limit -for now heart healthy diet ok > likely to need dialysis diet eventually -daily bmp, cbc >>>>AVF w/ some induration/ diminished thrill both proximal >> will attempt tx b ut may not run; either way will ask vascular to eval; needs duplex study at least of access; will update hospitalist as well Admission and Anticipated Discharge Date Admission Date: December 15, 2021 Subjective improving weakness/speech; denies visual deficit Physical Exam Constitutional: well developed, well nourished, cooperative and + lethargic (but less than yesterday); no acute distress Eyes: + EOM not intact ENMT: Ears: no external ear abnormality Nose: no external nose abnormality Mouth: + dry oral mucous membranes Neck: no nuchal rigidity Respiratory: normal respiratory effort Auscultation: + diminished lung sounds and + crackles (L base) Cardiovascular: Rate/Rhythm: regular rate and regular rhythm Extremities: + AV fistula (indurated proximally w/ no thrill proximally); no edema Gastrointestinal (Abdomen): Inspection/Auscultation: normal bowel sounds Percussion/Palpation: abdomen soft; abdomen nontender Skin: no rashes, warm and dry Psychiatric: Orientation: oriented to person and oriented to place Results & Data ([facility]) Vital Signs (Past 12 Hours) Vital Signs Temp Pulse Pulse Pulse Resp BP Pulse Ox 12/17/21 08:00 76 12/17/21 08:00 12/17/21 07:40 36.8 C 76 18 155/72 H 97 12/17/21 03:47 36.8 C 76 18 118/66 91 O2 Del Method 12/17/21 08:00 12/17/21 08:00 Room Air 12/17/21 07:40 Room Air 12/17/21 03:47 Diagnostic Findings MRI 10/16 No abnormal restricted diffusion is identified. There are extensive foci of restricted diffusion predominantly in the bilateral posterior cerebral artery distribution, with some foci noted in the middle cerebral artery distribution as well. There are redemonstrated findings of old right lacunar infarct. There is associated edema at the region of infarct without significant mass effect or midline shift. Ex vacuo ventriculomegaly and sulcal enlargement is noted compatible with diffuse encephalomalacia. No mass or abnormal enhancement is seen. There is no mass effect or midline shift. There is no evidence of acute intraparenchymal hemorrhage. No extra axial fluid collections are seen. The corpus callosum, pituitary gland, and cerebellar tonsils appear grossly unremarkable. Flow voids of the major intracranial arterial vessels are identified. The imaged portions of the paranasal sinuses, mastoid air cells, and orbits are unremarkable. Incidental note is made of bilateral intraocular lens replacements. IMPRESSION: Innumerable foci of restricted diffusion predominantly in the bilateral posterior circulation are concerning for embolic infarcts in this patient with history of severe heart failure. Of note, no abnormal enhancing lesions are seen to suggest intracranial metastasis.
--- NOTE | 2021-12-17 11:12 | Neurology Progress Note ---
Date of Service December 17, 2021 Assessment & Plan (1) Stroke-like symptoms: (2) Expressive aphasia: (3) Malignant neoplasm of lung: (4) Hypertension: (5) Polyneuropathy: Plan The patient had the onset of symptoms during dialysis the morning of 12/15, which were stroke-like, including left-sided weakness, altered responsiveness, vision changes with rightward gaze, and a possible left 6th nerve palsy noted in the emergency room. He was dysarthric and the left arm was weaker than the other limbs. All of these symptoms seem to have resolved and today he does not have any cranial nerve deficits or focal weakness. His expressive aphasia seems to have also Improved. Although a recent (outside) MRI of the brain without contrast showed 2 tiny right-sided lesions consistent with possible metastasis (as opposed to stroke), MRI of the brain December 16 here showed a showering of small embolic strokes bilaterally diffusely in the posterior fossa and supratentorially. Most of the lesions were in the posterior circulation ( occipital lobes and cerebellum ) but there were lesions higher up in other vascular distributions too. Contrast showed no enhancing lesions and after review with Radiology, there was no evidence for metastases. The patient has had an echocardiogram November 27, which showed reduced left ventricular systolic function and ejection fraction, with severe focal hypokinesis and akinesis with moderate to severe global hypokinesis. Follow-up echo today showed no atrial septal defect Patient has known metastatic pulmonary adenocarcinoma. The patient has risk factors for stroke including hypertension, diabetes, dyslipidemia, and ongoing cigarette smoking. Hemoglobin A1c was 6.8 and total cholesterol 162. Patient has evidence for a peripheral neuropathy likely secondary to diabetes and other issues. Recommendations: 1. continue 81 mg aspirin to prevent small vessel ischemic disease. 2. continue apixaban 5 mg twice a day to prevent cardiac emboli. 3. Control blood pressure as you are doing, aiming for a mean arterial pressure of 95-100. 4. control glucose and lower the hemoglobin A1c to closer to 6.5 5. Continue current atorvastatin dosage. He would not be a high dose statin candidate in my opinion 6. PT, OT, and speech therapy evaluations. Overall, I spent a total of 35 minutes with this case including review of records, review of MRI films, direct evaluation of patient bedside, and discussion of the case the patient and RN at bedside, and Dr. Michelle, including differential diagnosis and treatment options. Admission and Anticipated Discharge Date Admission Date: December 15, 2021 Subjective Patient is doing well with no headache, pain, weakness, numbness and feels "very good". CBC showed anemia and a Chem profile is pending. Heart rate is regular in the 70s. Blood pressure is 155/72 is afebrile. Currently he is getting dialysis. There is a concern about part of his fistula being clotted. Results & Data ([facility]) Vital Signs (Past 12 Hours) Vital Signs Temp Pulse Pulse Pulse Resp BP Pulse Ox 12/17/21 08:00 76 12/17/21 08:00 12/17/21 07:40 36.8 C 76 18 155/72 H 97 12/17/21 03:47 36.8 C 76 18 118/66 91 O2 Del Method 12/17/21 08:00 12/17/21 08:00 Room Air 12/17/21 07:40 Room Air 12/17/21 03:47 Exam (Neuro) Physical Exam: He is awake and alert. Speech is without aphasia or dysarthria. Her mood is normal and affect is appropriate. Thought processes are intact without memory deficits. Extraocular eye muscles are intact without nystagmus. There is no facial droop. Strength in the limbs is symmetrical. There are no abnormal involuntary movements. PG Care Time/CCT Total # of Minutes Spent Total Time Spent with Patient: Total time spent is greater than 50% in coordination of care (as documented) at patient's floor/unit and/or counseling patient: Coding Level of Care Code 36176 Subseq Hosp Care Lvl 3 Diagnoses Stroke-like symptoms R29.90 Expressive aphasia R47.01 Malignant neoplasm of lung C34.90 Hypertension I10 Hypertension type: essential hypertension Polyneuropathy G62.9 Time Spent (min) 35 (1) Hypertension Hypertension type: essential hypertension Qualified Code(s): I10 - Essential (primary) hypertension
[2021-12-17] MEDS: HEPARIN SOD (PORCINE) 1000 UNIT/ML IV SCH ×3 (11:47→14:11)
--- NOTE | 2021-12-17 11:57 | Hospitalist Progress Note ---
Date of Service December 17, 2021 Assessment & Plan (1) Stroke: Plan: Acute CVA; likely cardioembolic Patient presented to the ED from dialysis clinic with a stroke alert. History of metastatic lung cancer Brain MRI: Innumerable foci of restricted diffusion predominantly in the bilateral posterior circulation are concerning for embolic infarcts in this patient with history of severe heart failure. Of note, no abnormal enhancing lesions are seen to suggest intracranial metastasis. Head and neck CT angiogram: Unremarkable CT angiogram of the brain noting advanced atherosclerotic plaque and irregularity. Unremarkable CT angiogram of the neck noting advanced atherosclerotic plaque and irregularity. Plan: Evaluated by neurology service, : Acute CVA likely cardioembolic etiology given patient's recent echo in November 27, 2021 revealing EF of 25 to 30%, focal severe hypokinesis to akinesis of the apex and septum Moderate to severe global hypokinesis otherwise noted Recommend anticoagulation; started on Eliquis 5 mg twice daily. Patient is also on aspirin; will get cardiology opinion regarding aspirin PT OT evaluation (2) Metastatic adenocarcinoma: Plan: Admitting service notes: Follows with Dr. Paredes - scheduled for port placement 12/19 and initiation of immunotherapy on 12/23 (3) ESRD on hemodialysis: Plan: -nephrology for HD while admitted Hemodialysis site access issue -No bruit/thrill noted in the proximal limb of the left AV fistula. -Nephrology recommends blood culture and vascular surgery evaluation. (4) COPD (chronic obstructive pulmonary disease): Plan: On albuterol as needed. No wheeze on examination (5) DMII (diabetes mellitus, type 2): Plan: Not currently on any medications for this and does not follow a diabetic diet (6) Systolic CHF, chronic: (7) Essential hypertension: Plan: On amlodipine (8) Tobacco dependence syndrome: Plan Disposition PT OT eval pending; vascular surgery consulted for possible HD acc ess site issue Admission and Anticipated Discharge Date Admission Date: December 15, 2021 Subjective Patient seen and examined at bedside. He is comfortably sitting up on the bed; not in any distress. He denies headache, visual disturbances, weakness/numbness of any body part, chest pain or abdominal pain. Review of Systems Review of Systems: All systems reviewed & are unremarkable except as noted in Subjective Physical Exam Physical Exam: General- oriented x 3, not in distress, speaks in sentences with no effort or accessory muscle use Eyes- anicteric Neck- no JVD Lungs- clear breath sounds bilaterally, no rales/wheezes Heart- normal rate, regular rhythm; no murmurs Abdomen- normal bowel sounds, nondistended, soft, nontender Extremities-has fistula on his left arm; pulsation present in distal part; no bruit appreciated in the proximal limb. Neuro- alert, oriented x 3; cranial nerves II through XII grossly intact, motor strength 100% all extremities, no other gross focal neurologic deficits Skin- warm & dry Results & Data Results & Data ([facility]) Vital Signs (Past 12 Hours) Vital Signs Temp Pulse Pulse Pulse Resp BP Pulse Ox 12/17/21 08:00 76 12/17/21 08:00 12/17/21 07:40 36.8 C 76 18 155/72 H 97 12/17/21 03:47 36.8 C 76 18 118/66 91 O2 Del Method 12/17/21 08:00 12/17/21 08:00 Room Air 12/17/21 07:40 Room Air 12/17/21 03:47 Laboratory Results Laboratory Results WBC 8.46 K/ul (4.8-10.8) 12/17/21 10:03 RBC 3.63 M/uL (4.63-6.08) L 12/17/21 10:03 Hgb 10.2 g/dl (14.0-18.0) L 12/17/21 10:03 Hct 31.1 % (40.1-51.0) L 12/17/21 10:03 MCV 85.7 fL (80.0-100.0) 12/17/21 10:03 MCH 28.1 pg (25.0-34.0) 12/17/21 10:03 MCHC 32.8 g/dL (32.0-36.0) 12/17/21 10:03 RDW Std Deviation 46.8 fL (36.4-46.3) H 12/17/21 10:03 RDW Coeff of Shaylee 15.0 % (11.5-14.5) H 12/17/21 10:03 Plt Count 382 K/uL (130-400) 12/17/21 10:03 MPV 9.8 fL (9.4-12.4) 12/17/21 10:03 Immature Gran % (Auto) 0.7 % 12/17/21 10:03 Neut % (Auto) 75.6 % 12/17/21 10:03 Lymph % (Auto) 6.4 % 12/17/21 10:03 [place] % (Auto) 13.9 % 12/17/21 10:03 Eos % (Auto) 2.7 % 12/17/21 10:03 Baso % (Auto) 0.7 % 12/17/21 10:03 Neut # (Auto) 6.39 K/uL (1.4-6.5) 12/17/21 10:03 Lymph # (Auto) 0.54 K/uL (1.2-3.4) L 12/17/21 10:03 [place] # (Auto) 1.18 K/uL (0.24-0.82) H 12/17/21 10:03 Eos # (Auto) 0.23 K/uL (0-0.50) 12/17/21 10:03 Baso # (Auto) 0.06 K/uL (0-0.2) 12/17/21 10:03 Immature Gran # (Auto) 0.06 K/uL (0.00-0.02) H 12/17/21 10:03 PT 12.3 Seconds (9.0-12.0) H 12/15/21 08:40 INR 1.2 (0.9-1.1) H 12/15/21 08:40 APTT 33.9 Seconds (21.0-31.0) H 12/15/21 08:40 PTT Ratio 1.2 12/15/21 08:40 Sodium 131 mmol/L (136-145) L 12/16/21 06:16 Potassium 5.0 mmol/L (3.5-5.1) 12/16/21 06:16 Chloride 93 mmol/L (98-107) L 12/16/21 06:16 Carbon Dioxide 27 mmol/L (21-32) 12/16/21 06:16 Anion Gap 11 (3-11) 12/16/21 06:16 BUN 39 mg/dl (6-23) H 12/16/21 06:16 Creatinine 7.96 mg/dl (0.6-1.4) H* D 12/17/21 10:03 Est Cr Clr Drug Dosing 7.6 ml/min 11/09/22 10:03 Est GFR ( Amer) 7.1 ml/min 12/17/21 10:03 Est GFR (Non-Af Amer) 6.1 ml/min 12/17/21 10:03 BUN/Creatinine Ratio 4.5 (10-20) L 12/16/21 06:16 Glucose 83 mg/dl (70-99(Fasting)) 12/16/21 06:16 Estimat Average Glucose 148 mg/dl 12/16/21 06:16 Hemoglobin A1c 6.8 % (4.5-5.6) H 12/16/21 06:16 Calcium 8.1 mg/dl (8.5-10.1) L 12/16/21 06:16 Magnesium 2.1 mg/dl (1.7-2.4) 12/15/21 08:40 Total Bilirubin 0.7 mg/dl (0.2-1.0) 12/15/21 08:40 AST 19 U/L (13-39) 12/15/21 08:40 ALT 13 U/L (7-52) 12/15/21 08:40 Alkaline Phosphatase 70 U/L (34-104) 12/15/21 08:40 Ammonia 20.0 umol/L (18-72) 12/15/21 09:05 Troponin I High Sens 25.0 pg/ml (0-20) H D 12/15/21 08:40 Total Protein 6.1 gm/dl (6.0-8.3) 12/15/21 08:40 Albumin 3.2 gm/dl (3.4-5.0) L 12/15/21 08:40 Globulin 2.9 gm/dl (2.5-4.0) 12/15/21 08:40 Albumin/Globulin Ratio 1.1 (0.9-2) 12/15/21 08:40 Triglycerides 89 mg/dl (0-150) 12/16/21 06:16 Cholesterol 162 mg/dl (0-200) 12/16/21 06:16 LDL Cholesterol, Calc 97 mg/dl 12/16/21 06:16 VLDL Cholesterol, Calc 18 mg/dl (0-30) 12/16/21 06:16 HDL Cholesterol 47 mg/dl 12/16/21 06:16 Cholesterol/HDL Ratio 3.4 (0-5) 12/16/21 06:16 SARS-CoV-2, RNA, NAAT NEGATIVE (NEGATIVE) 12/15/21 11:36 Blood Type O Positive 12/15/21 08:40 Antibody Screen NEGATIVE 12/15/21 08:40 Impressions Chest X-Ray 12/15/21 08:26 SINGLE VIEW CHEST CLINICAL HISTORY: Strokelike symptoms. FINDINGS: An AP, portable, upright chest radiograph is compared to study dated 11/25/2021 and correlated with chest CT dated 11/26/2021. The examination is d egraded by portable technique and apical lordotic positioning. The heart is enlarged noting atherosclerotic calcification of the thoracic aorta. The pulmonary vasculature is noncongested. There is edema and chronic interstitial thickening is similar to previous. There is a layering right pleural effusion with right basilar consolidation. A 3 cm right upper lobe pulmonary lesion is again noted. Additional small pulmonary nodules seen by CT are not well assessed by x-ray. An accessory azygos fissure is incidentally noted. No pneumothorax is seen. The skeletal structures are osteopenic. The bony thorax is grossly intact. Arthritic change is seen in the shoulders. IMPRESSION: 1. Cardiomegaly and emphysema. 2. Layering right pleural effusion with right basilar consolidation. This is similar to previous. 3. A 3 cm right upper lobe pulmonary lesion is again noted. 4. Additional small pulmonary nodules seen by CT are not well assessed by x-ray. ACT 112: Negative or not required by law. Electronically signed by: Dheeraj Monte M.D. 12/15/2021 9:[address] 12/15/21 08:[address] OF THE BRAIN; CT ANGIOGRAM OF THE BRAIN; CT ANGIOGRAM OF THE NECK CLINICAL HISTORY: Strokelike symptoms. Lung cancer. COMPARISON STUDY: CT of the brain dated 02/23/2021. CT angiogram of the head and neck dated 07/04/[address] dated 11/26/2021. TECHNIQUE: Unenhanced axial CT scan of the brain is performed. Subsequently, following the IV administration of 120 of Optiray 320, CT angiogram of the head and neck was performed from the aortic arch to the vertex. Images are reviewed in the axial, sagittal, and coronal planes. 3-D MIPS images are created and assessed. IV contrast was administered without complication. All measurements were calculated based on NASCET criteria. A dose lowering technique was utilized adhering to the principles of ALARA. CT DOSE: 1132.14 mGy.cm FINDINGS: Brain parenchyma: There is age-related involutional change noting mild subcortical and periventricular microangiopathic disease. Chronic lacunar infarcts are noted in both thalami and the right basal ganglia.. There is no hemorrhage, mass effect, or evidence of acute territorial ischemia by CT criteria. There is no evidence of enhancing mass lesion on the angiogram phase images. The ventricles, sulci, and cisterns are prominent secondary to involu tional change. Arambula-white matter differentiation is preserved. No extra-axial fluid collection is seen. Thoracic aorta: There is atherosclerotic calcification of the thoracic aorta. Visualized portions of the thoracic aorta are normal in caliber. The aortic arch demonstrates standard 3-vessel anatomy. Right carotid arterial system: The right common carotid artery is patent. Atherosclerotic plaque and irregularity causes less than 50% luminal narrowing in the mid common carotid artery. There is advanced atherosclerotic calcification of the carotid bulb. The internal and external carotid arteries are widely patent in the neck. Left carotid arterial system: The left common carotid artery is widely patent, as with a left internal and external carotid arteries. Advanced atherosclerotic plaque is seen throughout the common carotid artery and in the carotid bulb. Vertebral arteries: The vertebral arteries are patent bilaterally noting right- sided dominance. Atherosclerotic plaque is seen throughout. This causes less than 50% narrowing of the proximal right vertebral artery seen on axial image #126. Subclavian arteries: Widely patent bilaterally. Intracranial vasculature: There is atherosclerotic calcification of the cavernous carotid and vertebral arteries The internal carotid arteries are patent at the skull base, as are the anterior and middle cerebral arteries bilaterally. The vertebrobasilar system and posterior cerebral arteries are patent noting atherosclerotic plaque and irregularity. There is a right posterior communicating artery. The right vertebral artery is dominant. There is no aneurysm, high-grade stenosis, or focal vessel cut off seen throughout the intracranial circulation. Jugular veins: Patent bilaterally. Dural sinuses: Patent. Upper chest: Emphysematous change is noted. There is an accessory azygos fissure. A right pleural effusion is partially visualized. A 6 mm right apical nodule is seen on image #88 and a 6 mm left upper lobe nodule is seen on image #55. Mediastinal lymphadenopathy is partially imaged. Soft tissues: The visualized pharyngeal soft tissues are normal in appearance noting angiographic phase technique. The oropharyngeal airway appears widely patent. The thyroid gland is not identified and presumed surgically absent. The salivary glands are normal in appearance. There is left lower cervical chain lymphadenopathy. The largest node is seen on image #162 and measures up to 1.7 cm. Skeletal structures: The skeletal structures are osteopenic. The calvarium appears intact. The cervical spine appears maintained noting advanced multilevel spondylosis. No lytic or blastic lesion is seen. Orbits: The bony orbits are intact. Orbital contents are normal as visualized noting bilateral ocular lens implants. Sinuses and mastoids: The paranasal sinuses are clear. There is a right mastoid effusion. The left mastoid air cells are well pneumatized. IMPRESSION: 1. There is no hemorrhage, mass effect, or evidence of acute territorial ischemia by CT criteria. 2. Unremarkable CT angiogram of the brain noting advanced atherosclerotic plaque and irregularity. 3. Unremarkable CT angiogram of the neck noting advanced atherosclerotic plaque and irregularity. 4. Emphysema, mediastinal lymphadenopathy, upper lobe pulmonary nodules, right pleural effusion, and left cervical adenopathy as above. Upper lobe pulmonary nodules have increased in size as compared to 11/26/2021. ACT 112: Negative or not required by law. Electronically signed by: Dheeraj Monte M.D. 12/15/2021 8:56 AM Head CTA 12/15/21 08:[address] OF THE BRAIN; CT ANGIOGRAM OF THE BRAIN; CT ANGIOGRAM OF THE NECK CLINICAL HISTORY: Strokelike symptoms. Lung cancer. COMPARISON STUDY: CT of the brain dated 02/23/2021. CT angiogram of the head and neck dated 07/04/[address] dated 11/26/2021. TECHNIQUE: Unenhanced axial CT scan of the brain is performed. Subsequently, following the IV administration of 120 of Optiray 320, CT angiogram of the head and neck was performed from the aortic arch to the vertex. Images are reviewed in the axial, sagittal, and coronal planes. 3-D MIPS images are created and assessed. IV contrast was administered without complication. All measurements were calculated based on NASCET criteria. A dose lowering technique was utilized adhering to the principles of ALARA. CT DOSE: 1132.14 mGy.cm FINDINGS: Brain parenchyma: There is age-related involutional change noting mild subcortical and periventricular microangiopathic disease. Chronic lacunar infarcts are noted in both thalami and the right basal ganglia.. There is no hemorrhage, mass effect, or evidence of acute territorial ischemia by CT criteria. There is no evidence of enhancing mass lesion on the angiogram phase images. The ventricles, sulci, and cisterns are prominent secondary to involutional change. [place]amb[place]-white matter differentiation is preserved. No extra- axial fluid collection is seen. Thoracic aorta: There is atherosclerotic calcification of the thoracic aorta. Visualized portions of the thoracic aorta are normal in caliber. The aortic arch demonstrates standard 3-vessel anatomy. Right carotid arterial system: The right common carotid artery is patent. Atherosclerotic plaque and irregularity causes less than 50% luminal narrowing in the mid common carotid artery. There is advanced atherosclerotic calcification of the carotid bulb. The internal and external carotid arteries are widely patent in the neck. Left carotid arterial system: The left common carotid artery is widely patent, as with a left internal and external carotid arteries. Advanced atherosclerotic plaque is seen throughout the common carotid artery and in the carotid bulb. Vertebral arteries: The vertebral arteries are patent bilaterally noting right- sided dominance. Atherosclerotic plaque is seen throughout. This causes less than 50% narrowing of the proximal right vertebral artery seen on axial image #126. Subclavian arteries: Widely patent bilaterally. Intracranial vasculature: There is atherosclerotic calcification of the cavernous carotid and vertebral arteries The internal carotid arteries are patent at the skull base, as are the anterior and middle cerebral arteries bilaterally. The vertebrobasilar system and posterior cerebral arteries are patent noting atherosclerotic plaque and irregularity. There is a right posterior communicating artery. The right vertebral artery is dominant. There is no aneurysm, high-grade stenosis, or focal vessel cut off seen throughout the intracranial circulation. Jugular veins: Patent bilaterally. Dural sinuses: Patent. Upper chest: Emphysematous change is noted. There is an accessory azygos fissure. A right pleural effusion is partially visualized. A 6 mm right apical nodule is seen on image #88 and a 6 mm left upper lobe nodule is seen on image #55. Mediastinal lymphadenopathy is partially imaged. Soft tissues: The visualized pharyngeal soft tissues are normal in appearance noting angiographic phase technique. The oropharyngeal airway appears widely patent. The thyroid gland is not identified and presumed surgically absent. The salivary glands are normal in appearance. There is left lower cervical chain lymphadenopathy. The largest node is seen on image #162 and measures up to 1.7 cm. Skeletal structures: The skeletal structures are osteopenic. The calvarium appears intact. The cervical spine appears maintained noting advanced multilevel spondylosis. No lytic or blastic lesion is seen. Orbits: The bony orbits are intact. Orbital contents are normal as visualized noting bilateral ocular lens implants. Sinuses and mastoids: The paranasal sinuses are clear. There is a right mastoid effusion. The left mastoid air cells are well pneumatized. IMPRESSION: 1. There is no hemorrhage, mass effect, or evidence of acute territorial ischemia by CT criteria. 2. Unremarkable CT angiogram of the brain noting advanced atherosclerotic plaque and irregularity. 3. Unremarkable CT angiogram of the neck noting advanced atherosclerotic plaque and irregularity. 4. Emphysema, mediastinal lymphadenopathy, upper lobe pulmonary nodules, right pleural effusion, and left cervical adenopathy as above. Upper lobe pulmonary nodules have increased in size as compared to 11/26/2021. ACT 112: Negative or not required by law. Electronically signed by: Dheeraj Monte M.D. 12/15/2021 8:56 AM Neck CTA 12/15/21 08:[address] OF THE BRAIN; CT ANGIOGRAM OF THE BRAIN; CT ANGIOGRAM OF THE NECK CLINICAL HISTORY: Strokelike symptoms. Lung cancer. COMPARISON STUDY: CT of the brain dated 02/23/2021. CT angiogram of the head and neck dated 07/04/[address] dated 11/26/2021. TECHNIQUE: Unenhanced axial CT scan of the brain is performed. Subsequently, following the IV administration of 120 of Optiray 320, CT angiogram of the head and neck was performed from the aortic arch to the vertex. Images are reviewed in the axial, sagittal, and coronal planes. 3-D MIPS images are created and assessed. IV contrast was administered without complication. All measurements were calculated based on NASCET criteria. A dose lowering technique was utilized adhering to the principles of ALARA. CT DOSE: 1132.14 mGy.cm FINDINGS: Brain parenchyma: There is age-related involutional change noting mild subcortical and periventricular microangiopathic disease. Chronic lacunar infarcts are noted in both thalami and the right basal ganglia.. There is no hemorrhage, mass effect, or evidence of acute territorial ischemia by CT criteria. There is no evidence of enhancing mass lesion on the angiogram phase images. The ventricles, sulci, and cisterns are prominent secondary to involutional change. [place]-white matter differentiation is preserved. No extra- axial fluid collection is seen. Thoracic aorta: There is atherosclerotic calcification of the thoracic aorta. Visualized portions of the thoracic aorta are normal in caliber. The aortic arch demonstrates standard 3-vessel anatomy. Right carotid arterial system: The right common carotid artery is patent. Atherosclerotic plaque and irregularity causes less than 50% luminal narrowing in the mid common carotid artery. There is advanced atherosclerotic calcification of the carotid bulb. The internal and external carotid arteries are widely patent in the neck. Left carotid arterial system: The left common carotid artery is widely patent, as with a left internal and external carotid arteries. Advanced atherosclerotic plaque is seen throughout the common carotid artery and in the carotid bulb. Vertebral arteries: The vertebral arteries are patent bilaterally noting right- sided dominance. Atherosclerotic plaque is seen throughout. This causes less than 50% narrowing of the proximal right vertebral artery seen on axial image #126. Subclavian arteries: Widely patent bilaterally. Intracranial vasculature: There is atherosclerotic calcification of the cavernous carotid and vertebral arteries The internal carotid arteries are patent at the skull base, as are the anterior and middle cerebral arteries bilaterally. The vertebrobasilar system and posterior cerebral arteries are patent noting atherosclerotic plaque and irregularity. There is a right posterior communicating artery. The right vertebral artery is dominant. There is no aneurysm, high-grade stenosis, or focal vessel cut off seen throughout the intracranial circulation. Jugular veins: Patent bilaterally. Dural sinuses: Patent. Upper chest: Emphysematous change is noted. There is an accessory azygos fissure. A right pleural effusion is partially visualized. A 6 mm right apical nodule is seen on image #88 and a 6 mm left upper lobe nodule is seen on image #55. Mediastinal lymphadenopathy is partially imaged. Soft tissues: The visualized pharyngeal soft tissues are normal in appearance noting angiographic phase technique. The oropharyngeal airway appears widely patent. The thyroid gland is not identified and presumed surgically absent. The salivary glands are normal in appearance. There is left lower cervical chain lymphadenopathy. The largest node is seen on image #162 and measures up to 1.7 cm. Skeletal structures: The skeletal structures are osteopenic. The calvarium appears intact. The cervical spine appears maintained noting advanced multilevel spondylosis. No lytic or blastic lesion is seen. Orbits: The bony orbits are intact. Orbital contents are normal as visualized noting bilateral ocular lens implants. Sinuses and mastoids: The paranasal sinuses are clear. There is a right mastoid effusion. The left mastoid air cells are well pneumatized. IMPRESSION: 1. There is no hemorrhage, mass effect, or evidence of acute territorial ischemia by CT criteria. 2. Unremarkable CT angiogram of the brain noting advanced atherosclerotic plaque and irregularity. 3. Unremarkable CT angiogram of the neck noting advanced atherosclerotic plaque and irregularity. 4. Emphysema, mediastinal lymphadenopathy, upper lobe pulmonary nodules, right pleural effusion, and left cervical adenopathy as above. Upper lobe pulmonary nodules have increased in size as compared to 11/26/2021. ACT 112: Negative or not required by law. Electronically signed by: Dheeraj Monte M.D. 12/15/2021 8:56 AM Brain MRI 12/16/21 08:00 MR brain wo/w con CLINICAL HISTORY: CVA, brain mets TECHNIQUE: Multiplanar and multisequence MR images of the brain were obtained prior to and following administration of gadolinium contrast. Comparison: Comparison is made to CTA head and neck 12/15/2021 FINDINGS: No abnormal restricted diffusion is identified. There are extensive foci of restricted diffusion predominantly in the bilateral posterior cerebral artery distribution, with some foci noted in the middle cerebral artery distribution as well. There are redemonstrated findings of old right lacunar infarct. There is associated edema at the region of infarct without significant mass effect or midline shift. Ex vacuo ventriculomegaly and sulcal enlargement is noted compatible with diffuse encephalomalacia. No mass or abnormal enhancement is seen. There is no mass effect or midline shift. There is no evidence of acute intraparenchymal hemorrhage. No extra axial fluid collections are seen. The corpus callosum, pituitary gland, and cerebellar tonsils appear grossly unremarkable. Flow voids of the major intracranial arterial vessels are identified. The imaged portions of the paranasal sinuses, mastoid air cells, and orbits are unremarkable. Incidental note is made of bilateral intraocular lens replacements. IMPRESSION: Innumerable foci of restricted diffusion predominantly in the bilateral posterior circulation are concerning for embolic infarcts in this patient with history of severe heart failure. Of note, no abnormal enhancing lesions are seen to suggest intracranial metastasis. ACT 112: Negative or not required by law. Electronically signed by: Baudilio Aly M.D. 12/16/2021 11:36 AM (1) Stroke CVA mechanism: other Qualified Code(s): I63.89 - Other cerebral infarction
[2021-12-17 12:24] LABS: BUN Creatinine Ratio 4.3 (10-20); Calcium 8.5 mg/dl (8.5-10.1); Potassium 4.6 mmol/L (3.5-5.1)
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
[2021-12-17] MEDS: METOPROLOL TARTRATE 50 MG TAB PO SCH (20:11)
[2021-12-17] MEDS: DEXTROSE 10% 1,000 ML IV SCH (23:37)
[2021-12-18] MEDS: LEVOTHYROXINE SODIUM 137 MCG TABLET PO SCH (05:30)
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
[2021-12-18] MEDS: busPIRone 5 MG TAB PO SCH ×2 (08:09→21:46)
[2021-12-18] MEDS: METOPROLOL TARTRATE 100 MG TAB PO SCH (08:10)
[2021-12-18] MEDS: ATORVASTATIN 40 MG TAB PO SCH (08:10)
[2021-12-18] MEDS: SEVELAMER HCL 800 MG TABLET PO SCH ×3 (08:11→18:27)
[2021-12-18 10:00] LABS: Basophils # (auto) 0.06 K/uL (0-0.2); Basophils % (auto) 0.7 %; Eosinophils # (auto) 0.35 K/uL (0-0.50); Eosinophils % (auto) 4.2 %; Hematocrit (blood only) 31.3 % (40.1-51.0); Hemoglobin 10.4 g/dl (14.0-18.0); Immature Granulocytes # (auto) 0.05 K/uL (0.00-0.02); Immature Granulocytes % (auto) 0.6 %; Lymphocytes # (auto) 0.65 K/uL (1.2-3.4); Lymphocytes % (auto) 7.8 %; Mean Corpuscular Hemoglobin 28.3 pg (25.0-34.0); Mean Corpuscular Hgb Conc 33.2 g/dL (32.0-36.0); Mean Corpuscular Volume 85.1 fL (80.0-100.0); Mean Platelet Volume 10.1 fL (9.4-12.4); Monocytes % (auto) 13.1 %; Neutrophils # (auto) 6.16 K/uL (1.4-6.5); Neutrophils % (auto) 73.6 %; Platelet Count 429 K/uL (130-400); RDW Coefficient of Variation 14.9 % (11.5-14.5); RDW Standard Deviation 46.3 fL (36.4-46.3); Red Blood Count 3.68 M/uL (4.63-6.08); White Blood Count 8.37 K/ul (4.8-10.8)
[2021-12-18 10:18] LABS: BUN Creatinine Ratio 4.9 (10-20); Calcium 8.6 mg/dl (8.5-10.1); Creatinine Clr Calc Pharmacy 6.8 ml/min; Est GFR (African American) 6.2 ml/min; Est GFR (Non-African American) 5.4 ml/min; Potassium 4.9 mmol/L (3.5-5.1)
[2021-12-18] MEDS ORDERED: ceFAZolin 2000MG 2,000 MG/15 ML SYR IV ONE (12:00)
--- NOTE | 2021-12-18 12:04 | Hospitalist Progress Note ---
Date of Service December 18, 2021 Assessment & Plan (1) Stroke: Plan: Acute CVA; likely cardioembolic Patient presented to the ED from dialysis clinic with a stroke alert. History of metastatic lung cancer Brain MRI: Innumerable foci of restricted diffusion predominantly in the bilateral posterior circulation are concerning for embolic infarcts in this patient with history of severe heart failure. Of note, no abnormal enhancing lesions are seen to suggest intracranial metastasis. Head and neck CT angiogram: Unremarkable CT angiogram of the brain noting advanced atherosclerotic plaque and irregularity. Unremarkable CT angiogram of the neck noting advanced atherosclerotic plaque and irregularity. Plan: Evaluated by neurology service, : Acute CVA likely cardioembolic etiology given patient's recent echo in November 27, 2021 revealing EF of 25 to 30%, focal severe hypokinesis to akinesis of the apex and septum Moderate to severe global hypokinesis otherwise noted Recommend anticoagulation; started on Eliquis 5 mg twice daily. Eliquis is currently on hold given the planned procedure. Aspirin stopped. PT OT evaluation recommended home health with PT OT. (2) Metastatic adenocarcinoma: Plan: Admitting service notes: Follows with Dr. Paredes - scheduled for port placement 12/19 and initiation of immunotherapy on 12/23 (3) ESRD on hemodialysis: Plan: -nephrology for HD while admitted Hemodialysis site access issue -No bruit/thrill noted in the proximal limb of the left AV fistula. -Vascular surgery on board for possible left upper extremity open thrombectomy fistulogram with possible intervention. -Blood culture pending (4) COPD (chronic obstructive pulmonary disease): Plan: On albuterol as needed. No wheeze on examination (5) DMII (diabetes mellitus, type 2): Plan: Not currently on any medications for this and does not follow a diabetic diet (6) Systolic CHF, chronic: Plan: Compensated (7) Essential hypertension: Plan: On amlodipine (8) Tobacco dependence syndrome: Plan Full code [id number] on hold for planned procedure today. Admission and Anticipated Discharge Date Admission Date: December 15, 2021 Subjective Patient seen and examined at bedside. He is sitting up at the side of the bed; not in any distress. He denies fever, chills, chest pain, abdominal pain and urinary symptoms. Review of Systems Review of Systems: All systems reviewed & are unremarkable except as noted in Subjective Physical Exam Physical Exam: General- oriented x 3, not in distress, speaks in sentences with no effort or accessory muscle use Eyes- anicteric Neck- no JVD Lungs- clear breath sounds bilaterally, no rales/wheezes Heart- normal rate, regular rhythm; no murmurs Abdomen- normal bowel sounds, nondistended, soft, nontender Extremities-has fistula on his left arm; pulsation present in distal part; pulsation present in proximal part as well Neuro- alert, oriented x 3; cranial nerves II through XII grossly intact, motor strength 100% all extremities, no other gross focal neurologic deficits Skin- warm & dry Results & Data Results & Data ([facility]) Vital Signs (Past 12 Hours) Vital Signs Temp Pulse Pulse Resp BP Pulse Ox O2 Del Method 12/18/21 11:36 36.4 C L 54 L 18 133/68 98 Room Air 12/18/21 08:39 Room Air 12/18/21 07:33 36.6 C 72 16 147/74 H 96 Room Air 12/18/21 02:45 36.7 C 72 18 134/60 97 Room Air Laboratory Results Laboratory Results WBC 8.37 K/ul (4.8-10.8) 12/18/21 09:26 RBC 3.68 M/uL (4.63-6.08) L 12/18/21 09:26 Hgb 10.4 g/dl (14.0-18.0) L 12/18/21 09:26 Hct 31.3 % (40.1-51.0) L 12/18/21 09:26 MCV 85.1 fL (80.0-100.0) 12/18/21 09:26 MCH 28.3 pg (25.0-34.0) 12/18/21 09:26 MCHC 33.2 g/dL (32.0-36.0) 12/18/21 09:26 RDW Std Deviation 46.3 fL (36.4-46.3) 12/18/21 09:26 RDW Coeff of Shaylee 14.9 % (11.5-14.5) H 12/18/21 09:26 Plt Count 429 K/uL (130-400) H 12/18/21 09:26 MPV 10.1 fL (9.4-12.4) 12/18/21 09:26 Immature Gran % (Auto) 0.6 % 12/18/21 09:26 Neut % (Auto) 73.6 % 12/18/21 09:26 Lymph % (Auto) 7.8 % 12/18/21 09:26 Tate % (Auto) 13.1 % 12/18/21 09:26 Eos % (Auto) 4.2 % 12/18/21 09:26 Baso % (Auto) 0.7 % 12/18/21 09: Neut # (Auto) 6.16 K/uL (1.4-6.5) 12/18/21 09: Lymph # (Auto) 0.65 K/uL (1.2-3.4) L 12/18/21 09: Tate # (Auto) 1.10 K/uL (0.24-0.82) H 12/18/21 09:26 Eos # (Auto) 0.35 K/uL (0-0.50) 12/18/21 09: Baso # (Auto) 0.06 K/uL (0-0.2) 12/18/21 09:26 Immature Gran # (Auto) 0.05 K/uL (0.00-0.02) H 12/18/21 09:26 PT 12.3 Seconds (9.0-12.0) H 12/15/21 08:40 INR 1.2 (0.9-1.1) H 12/15/21 08:40 APTT 33.9 Seconds (21.0-31.0) H 12/15/21 08:40 PTT Ratio 1.2 12/15/21 08:40 Sodium 134 mmol/L (136-145) L 12/18/21 09:26 Potassium 4.9 mmol/L (3.5-5.1) 12/18/21 09:26 Chloride 100 mmol/L (98-107) 12/18/21 09:26 Carbon Dioxide 23 mmol/L (21-32) 12/18/21 09:26 Anion Gap 11 (3-11) 12/18/21 09:26 BUN 43 mg/dl (6-23) H 12/18/21 09:26 Creatinine 8.85 mg/dl (0.6-1.4) H* D 12/18/21 09:26 Est Cr Clr Drug Dosing 6.8 ml/min 12/18/21 09:26 Est GFR ( Amer) 6.2 ml/min 12/18/21 09:26 Est GFR (Non-Af Amer) 5.4 ml/min 12/18/21 09:26 BUN/Creatinine Ratio 4.9 (10-20) L 12/18/21 09:26 Glucose 115 mg/dl (70-99(Fasting)) H 12/18/21 09:26 Estimat Average Glucose 148 mg/dl 12/16/21 06:16 Hemoglobin A1c 6.8 % (4.5-5.6) H 12/16/21 06:16 Calcium 8.6 mg/dl (8.5-10.1) 12/18/21 09:26 Magnesium 2.1 mg/dl (1.7-2.4) 12/15/21 08:40 Total Bilirubin 0.7 mg/dl (0.2-1.0) 12/15/21 08:40 AST 19 U/L (13-39) 12/15/21 08:40 ALT 13 U/L (7-52) 12/15/21 08:40 Alkaline Phosphatase 70 U/L (34-104) 12/15/21 08:40 Ammonia 20.0 umol/L (18-72) 12/15/21 09:05 Troponin I High Sens 25.0 pg/ml (0-20) H D 12/15/21 08:40 Total Protein 6.1 gm/dl (6.0-8.3) 12/15/21 08:40 Albumin 3.2 gm/dl (3.4-5.0) L 12/15/21 08:40 Globulin 2.9 gm/dl (2.5-4.0) 12/15/21 08:40 Albumin/Globulin Ratio 1.1 (0.9-2) 12/15/21 08:40 Triglycerides 89 mg/dl (0-150) 12/16/21 06:16 Cholesterol 162 mg/dl (0-200) 12/16/21 06:16 LDL Cholesterol, Calc 97 mg/dl 12/16/21 06:16 VLDL Cholesterol, Calc 18 mg/dl (0-30) 12/16/21 06:16 HDL Cholesterol 47 mg/dl 12/16/21 06:16 Cholesterol/HDL Ratio 3.4 (0-5) 12/16/21 06:16 SARS-CoV-2, RNA, NAAT NEGATIVE (NEGATIVE) 12/15/21 11:36 Blood Type O Positive 12/15/21 08:40 Antibody Screen NEGATIVE 12/15/21 08:40 Impressions Chest X-Ray 12/15/21 08:26 SINGLE VIEW CHEST CLINICAL HISTORY: Strokelike symptoms. FINDINGS: An AP, portable, upright chest radiograph is compared to study dated 11/25/2021 and correlated with chest CT dated 11/26/2021. The examination is degraded by portable technique and apical lordotic positioning. The heart is enlarged noting atherosclerotic calcification of the thoracic aorta. The pulmonary vasculature is noncongested. There is edema and chronic interstitial thickening is similar to previous. There is a layering right pleural effusion with right basilar consolidation. A 3 cm right upper lobe pulmonary lesion is again noted. Additional small pulmonary nodules seen by CT are not well assessed by x-ray. An accessory azygos fissure is incidentally noted. No pneumothorax is seen. The skeletal structures are osteopenic. The bony thorax is grossly intact. Arthritic change is seen in the shoulders. IMPRESSION: 1. Cardiomegaly and emphysema. 2. Layering right pleural effusion with right basilar consolidation. This is similar to previous. 3. A 3 cm right upper lobe pulmonary lesion is again noted. 4. Additional small pulmonary nodules seen by CT are not well assessed by x-ray. ACT 112: Negative or not required by law. Electronically signed by: Dheeraj Monte M.D. 12/15/2021 9:[address] 12/15/21 08:[address] OF THE BRAIN; CT ANGIOGRAM OF THE BRAIN; CT ANGIOGRAM OF THE NECK CLINICAL HISTORY: Strokelike symptoms. Lung cancer. COMPARISON STUDY: CT of the brain dated 02/23/2021. CT angiogram of the head and neck dated 07/04/[address] dated 11/26/2021. TECHNIQUE: Unenhanced axial CT scan of the brain is performed. Subsequently, following the IV administration of 120 of Optiray 320, CT angiogram of the head and neck was performed from the aortic arch to the vertex. Images are reviewed in the axial, sagittal, and coronal planes. 3-D MIPS images are created and assessed. IV contrast was administered without complication. All measurements were calculated based on NASCET criteria. A dose lowering technique was utilized adhering to the principles of ALARA. CT DOSE: 1132.14 mGy.cm FINDINGS: Brain parenchyma: There is age-related involutional change noting mild subcortical and periventricular microangiopathic disease. Chronic lacunar infarcts are noted in both thalami and the right basal ganglia.. There is no hemorrhage, mass effect, or evidence of acute territorial ischemia by CT criteria. There is no evidence of enhancing mass lesion on the angiogram phase images. The ventricles, sulci, and cisterns are prominent secondary to involutional change. Arambula-white matter differentiation is preserved. No extra- axial fluid collection is seen. Thoracic aorta: There is atherosclerotic calcification of the thoracic aorta. Visualized portions of the thoracic aorta are normal in caliber. The aortic arch demonstrates standard 3-vessel anatomy. Right carotid arterial system: The right common carotid artery is patent. Atherosclerotic plaque and irregularity causes less than 50% luminal narrowing in the mid common carotid artery. There is advanced atherosclerotic calcification of the carotid bulb. The internal and external carotid arteries are widely patent in the neck. Left carotid arterial system: The left common carotid artery is widely patent, as with a left internal and external carotid arteries. Advanced atherosclerotic plaque is seen throughout the common carotid artery and in the carotid bulb. Vertebral arteries: The vertebral arteries are patent bilaterally noting right- sided dominance. Atherosclerotic plaque is seen throughout. This causes less than 50% narrowing of the proximal right vertebral artery seen on axial image #126. Subclavian arteries: Widely patent bilaterally. Intracranial vasculature: There is atherosclerotic calcification of the cavernous carotid and vertebral arteries The internal carotid arteries are patent at the skull base, as are the anterior and middle cerebral arteries bilaterally. The vertebrobasilar system and posterior cerebral arteries are patent noting atherosclerotic plaque and irregularity. There is a right posterior communicating artery. The right vertebral artery is dominant. There is no aneurysm, high-grade stenosis, or focal vessel cut off seen throughout the intracranial circulation. Jugular veins: Patent bilaterally. Dural sinuses: Patent. Upper chest: Emphysematous change is noted. There is an accessory azygos fissure. A right pleural effusion is partially visualized. A 6 mm right apical nodule is seen on image #88 and a 6 mm left upper lobe nodule is seen on image #55. Mediastinal lymphadenopathy is partially imaged. Soft tissues: The visualized pharyngeal soft tissues are normal in appearance noting angiographic phase technique. The oropharyngeal airway appears widely patent. The thyroid gland is not identified and presumed surgically absent. The salivary glands are normal in appearance. There is left lower cervical chain lymphadenopathy. The largest node is seen on image #162 and measures up to 1.7 cm. Skeletal structures: The skeletal structures are osteopenic. The calvarium appears intact. The cervical spine appears maintained noting advanced multilevel spondylosis. No lytic or blastic lesion is seen. Orbits: The bony orbits are intact. Orbital contents are normal as visualized noting bilateral ocular lens implants. Sinuses and mastoids: The paranasal sinuses are clear. There is a right mastoid effusion. The left mastoid air cells are well pneumatized. IMPRESSION: 1. There is no hemorrhage, mass effect, or evidence of acute territorial ischemia by CT criteria. 2. Unremarkable CT angiogram of the brain noting advanced atherosclerotic plaque and irregularity. 3. Unremarkable CT angiogram of the neck noting advanced atherosclerotic plaque and irregularity. 4. Emphysema, mediastinal lymphadenopathy, upper lobe pulmonary nodules, right pleural effusion, and left cervical adenopathy as above. Upper lobe pulmonary nodules have increased in size as compared to 11/26/2021. ACT 112: Negative or not required by law. Electronically signed by: Dheeraj Monte M.D. 12/15/2021 8:56 AM Head CTA 12/15/21 08:[address] OF THE BRAIN; CT ANGIOGRAM OF THE BRAIN; CT ANGIOGRAM OF THE NECK CLINICAL HISTORY: Strokelike symptoms. Lung cancer. COMPARISON STUDY: CT of the brain dated 02/23/2021. CT angiogram of the head and neck dated 07/04/[address] dated 11/26/2021. TECHNIQUE: Unenhanced axial CT scan of the brain is performed. Subsequently, following the IV administration of 120 of Optiray 320, CT angiogram of the head and neck was performed from the aortic arch to the vertex. Images are reviewed in the axial, sagittal, and coronal planes. 3-D MIPS images are created and assessed. IV contrast was administered without complication. All measurements were calculated based on NASCET criteria. A dose lowering technique was utilized adhering to the principles of ALARA. CT DOSE: 1132.14 mGy.cm FINDINGS: Brain parenchyma: There is age-related involutional change noting mild subcortical and periventricular microangiopathic disease. Chronic lacunar infarcts are noted in both thalami and the right basal ganglia.. There is no hemorrhage, mass effect, or evidence of acute territorial ischemia by CT criteria. There is no evidence of enhancing mass lesion on the angiogram phase images. The ventricles, sulci, and cisterns are prominent secondary to involutional change. Arambula-white matter differentiation is preserved. No extra- axial fluid collection is seen. Thoracic aorta: There is atherosclerotic calcification of the thoracic aorta. Visualized portions of the thoracic aorta are normal in caliber. The aortic arch demonstrates standard 3-vessel anatomy. Right carotid arterial system: The right common carotid artery is patent. Atherosclerotic plaque and irregularity causes less than 50% luminal narrowing in the mid common carotid artery. There is advanced atherosclerotic calcification of the carotid bulb. The internal and external carotid arteries are widely patent in the neck. Left carotid arterial system: The left common carotid artery is widely patent, as with a left internal and external carotid arteries. Advanced atherosclerotic plaque is seen throughout the common carotid artery and in the carotid bulb. Vertebral arteries: The vertebral arteries are patent bilaterally noting right- sided dominance. Atherosclerotic plaque is seen throughout. This causes less than 50% narrowing of the proximal right vertebral artery seen on axial image #126. Subclavian arteries: Widely patent bilaterally. Intracranial vasculature: There is atherosclerotic calcification of the cavernous carotid and vertebral arteries The internal carotid arteries are patent at the skull base, as are the anterior and middle cerebral arteries bilaterally. The vertebrobasilar system and posterior cerebral arteries are patent noting atherosclerotic plaque and irregularity. There is a right posterior communicating artery. The right vertebral artery is dominant. There is no aneurysm, high-grade stenosis, or focal vessel cut off seen throughout the intracranial circulation. Jugular veins: Patent bilaterally. Dural sinuses: Patent. Upper chest: Emphysematous change is noted. There is an accessory azygos fissure. A right pleural effusion is partially visualized. A 6 mm right apical nodule is seen on image #88 and a 6 mm left upper lobe nodule is seen on image #55. Mediastinal lymphadenopathy is partially imaged. Soft tissues: The visualized pharyngeal soft tissues are normal in appearance noting angiographic phase technique. The oropharyngeal airway appears widely patent. The thyroid gland is not identified and presumed surgically absent. The salivary glands are normal in appearance. There is left lower cervical chain lymphadenopathy. The largest node is seen on image #162 and measures up to 1.7 cm. Skeletal structures: The skeletal structures are osteopenic. The calvarium appears intact. The cervical spine appears maintained noting advanced multilevel spondylosis. No lytic or blastic lesion is seen. Orbits: The bony orbits are intact. Orbital contents are normal as visualized noting bilateral ocular lens implants. Sinuses and mastoids: The paranasal sinuses are clear. There is a right mastoid effusion. The left mastoid air cells are well pneumatized. IMPRESSION: 1. There is no hemorrhage, mass effect, or evidence of acute territorial ischemia by CT criteria. 2. Unremarkable CT angiogram of the brain noting advanced atherosclerotic plaque and irregularity. 3. Unremarkable CT angiogram of the neck noting advanced atherosclerotic plaque and irregularity. 4. Emphysema, mediastinal lymphadenopathy, upper lobe pulmonary nodules, right pleural effusion, and left cervical adenopathy as above. Upper lobe pulmonary no dules have increased in size as compared to 11/26/2021. ACT 112: Negative or not required by law. Electronically signed by: Dheeraj Monte M.D. 12/15/2021 8:56 AM Neck CTA 12/15/21 08:[address] OF THE BRAIN; CT ANGIOGRAM OF THE BRAIN; CT ANGIOGRAM OF THE NECK CLINICAL HISTORY: Strokelike symptoms. Lung cancer. COMPARISON STUDY: CT of the brain dated 02/23/2021. CT angiogram of the head and neck dated 07/04/[address] dated 11/26/2021. TECHNIQUE: Unenhanced axial CT scan of the brain is performed. Subsequently, following the IV administration of 120 of Optiray 320, CT angiogram of the head and neck was performed from the aortic arch to the vertex. Images are reviewed in the axial, sagittal, and coronal planes. 3-D MIPS images are created and assessed. IV contrast was administered without complication. All measurements were calculated based on NASCET criteria. A dose lowering technique was utilized adhering to the principles of ALARA. CT DOSE: 1132.14 mGy.cm FINDINGS: Brain parenchyma: There is age-related involutional change noting mild subcortical and periventricular microangiopathic disease. Chronic lacunar infarcts are noted in both thalami and the right basal ganglia.. There is no hemorrhage, mass effect, or evidence of acute territorial ischemia by CT criteria. There is no evidence of enhancing mass lesion on the angiogram phase images. The ventricles, sulci, and cisterns are prominent secondary to involutional change. Arambula-white matter differentiation is preserved. No extra- axial fluid collection is seen. Thoracic aorta: There is atherosclerotic calcification of the thoracic aorta. Visualized portions of the thoracic aorta are normal in caliber. The aortic arch demonstrates standard 3-vessel anatomy. Right carotid arterial system: The right common carotid artery is patent. Atherosclerotic plaque and irregularity causes less than 50% luminal narrowing in the mid common carotid artery. There is advanced atherosclerotic calcification of the carotid bulb. The internal and external carotid arteries are widely patent in the neck. Left carotid arterial system: The left common carotid artery is widely patent, as with a left internal and external carotid arteries. Advanced atherosclerotic plaque is seen throughout the common carotid artery and in the carotid bulb. Vertebral arteries: The vertebral arteries are patent bilaterally noting right- sided dominance. Atherosclerotic plaque is seen throughout. This causes less than 50% narrowing of the proximal right vertebral artery seen on axial image #126. Subclavian arteries: Widely patent bilaterally. Intracranial vasculature: There is atherosclerotic calcification of the cavernous carotid and vertebral arteries The internal carotid arteries are patent at the skull base, as are the anterior and middle cerebral arteries bilaterally. The vertebrobasilar system and posterior cerebral arteries are patent noting atherosclerotic plaque and irregularity. There is a right posterior communicating artery. The right vertebral artery is dominant. There is no aneurysm, high-grade stenosis, or focal vessel cut off seen throughout the intracranial circulation. Jugular veins: Patent bilaterally. Dural sinuses: Patent. Upper chest: Emphysematous change is noted. There is an accessory azygos fissure. A right pleural effusion is partially visualized. A 6 mm right apical nodule is seen on image #88 and a 6 mm left upper lobe nodule is seen on image #55. Mediastinal lymphadenopathy is partially imaged. Soft tissues: The visualized pharyngeal soft tissues are normal in appearance noting angiographic phase technique. The oropharyngeal airway appears widely patent. The thyroid gland is not identified and presumed surgically absent. The salivary glands are normal in appearance. There is left lower cervical chain lymphadenopathy. The largest node is seen on image #162 and measures up to 1.7 cm. Skeletal structures: The skeletal structures are osteopenic. The calvarium appears intact. The cervical spine appears maintained noting advanced multilevel spondylosis. No lytic or blastic lesion is seen. Orbits: The bony orbits are intact. Orbital contents are normal as visualized noting bilateral ocular lens implants. Sinuses and mastoids: The paranasal sinuses are clear. There is a right mastoid effusion. The left mastoid air cells are well pneumatized. IMPRESSION: 1. There is no hemorrhage, mass effect, or evidence of acute territorial ischemia by CT criteria. 2. Unremarkable CT angiogram of the brain noting advanced atherosclerotic plaque and irregularity. 3. Unremarkable CT angiogram of the neck noting advanced atherosclerotic plaque and irregularity. 4. Emphysema, mediastinal lymphadenopathy, upper lobe pulmonary nodules, right pleural effusion, and left cervical adenopathy as above. Upper lobe pulmonary nodules have increased in size as compared to 11/26/2021. ACT 112: Negative or not required by law. Electronically signed by: Dheeraj Monte M.D. 12/15/2021 8:56 AM Brain MRI 12/16/21 08:00 MR brain wo/w con CLINICAL HISTORY: CVA, brain mets TECHNIQUE: Multiplanar and multisequence MR images of the brain were obtained prior to and following administration of gadolinium contrast. Comparison: Comparison is made to CTA head and neck 12/15/2021 FINDINGS: No abnormal restricted diffusion is identified. There are extensive foci of restricted diffusion predominantly in the bilateral posterior cerebral artery distribution, with some foci noted in the middle cerebral artery distribution as well. There are redemonstrated findings of old right lacunar infarct. There is associated edema at the region of infarct without significant mass effect or midline shift. Ex vacuo ventriculomegaly and sulcal enlargement is noted compatible with diffuse encephalomalacia. No mass or abnormal enhancement is seen. There is no mass effect or midline shift. There is no evidence of acute intraparenchymal hemorrhage. No extra axial fluid collections are seen. The corpus callosum, pituitary gland, and cerebellar tonsils appear grossly unremarkable. Flow voids of the major intracranial arterial vessels are identified. The imaged portions of the paranasal sinuses, mastoid air cells, and orbits are unremarkable. Incidental note is made of bilateral intraocular lens replacements. IMPRESSION: Innumerable foci of restricted diffusion predominantly in the bilateral posterior circulation are concerning for embolic infarcts in this patient with history of severe heart failure. Of note, no abnormal enhancing lesions are seen to suggest intracranial metastasis. ACT 112: Negative or not required by law. Electronically signed by: Baudilio Aly M.D. 12/16/2021 11:36 AM (1) Stroke CVA mechanism: other Qualified Code(s): I63.89 - Other cerebral infarction
--- NOTE | 2021-12-18 13:03 | Cardiology Progress Note ---
Date of Service December 18, 2021 Assessment & Plan (1) Stroke-like symptoms: (2) Stroke: (3) Dyspnea and respiratory abnormalities: (4) Malignant pleural effusion: (5) ESRD on hemodialysis: (6) Metastatic adenocarcinoma: (7) Malignant neoplasm of lung: (8) Hemoptysis: (9) Aortic stenosis: (10) Ischemic cardiomyopathy: Plan Patient presented with strokelike symptoms. MRI revealed innumerable foci in the bilateral posterior circulation concerning for embolic infarcts. Patient with apical wall akinesis so he is obviously at risk of developing apical thrombus. No thrombus noted recently. 2D echocardiogram showed intact interatrial septum Patient has been started on Eliquis anticoagulation No further cardiac testing or intervention is necessary at this time. Okay to DC telemetry from a cardiac standpoint. Admission and Anticipated Discharge Date Admission Date: December 15, 2021 Subjective Patient seen and examined. Chart reviewed. Telemetry reviewed. Remains asymptomatic. Review of Systems Review of Systems: All systems reviewed & are unremarkable except as noted in HPI & below Physical Exam Physical Exam: General: Awake, alert and oriented x 3. No acute distress. HEENT: Normocephalic, atraumatic. Pupils equal, round and reactive to light and accommodation. Extraocular muscles are intact. Anicteric sclera. Moist mucous membranes. Neck: No JVD. No bruit. Cardiovascular: Regular. Positive S-4. Normal S-1 and S-2. No S-3. No murmurs or rubs. Pulmonary: Clear to auscultation B/L. No rales, rhonchi or wheezing Abdomen: Bowel sounds x 4, soft. No rebound, guarding or tenderness. No organomegaly. Extremities: No clubbing, cyanosis or edema. +2 pedal pulses bilaterally. Skin: Warm and dry. Results & Data ([facility]) Vital Signs (Past 12 Hours) Vital Signs Temp Pulse Pulse Resp BP Pulse Ox O2 Del Method 12/18/21 11:36 36.4 C L 54 L 18 133/68 98 Room Air 12/18/21 08:39 Room Air 12/18/21 07:33 36.6 C 72 16 147/74 H 96 Room Air 12/18/21 02:45 36.7 C 72 18 134/60 97 Room Air (1) Stroke CVA mechanism: other Qualified Code(s): I63.89 - Other cerebral infarction
--- NOTE | 2021-12-18 13:33 | Nephrology Progress Note ---
Date of Service December 18, 2021 Assessment & Plan (1) ESRD on hemodialysis: Plan: ESRD pt admitted with presumed brainstem stroke, MRI w/ embolic infarcts in post circulation; found on 12/17 to have AVF malfunction/suspected thrombus chemistries/volume status acceptable for now >>>defer to neurology and primary service for most appropriate blood pressure targets - in general will aim w/ HD to keep sbp >120 and more in 130-150s range -had MRI w/ con then HD on 10/16 >>this was his most recent HD >>plan 4 hr tx tomorrow first thing; thrombectomy for later in day today -given R pleural effusion > continue 1.5L fluid limit -ordered dialysis diet -daily bmp, cbc Admission and Anticipated Discharge Date Admission Date: December 15, 2021 Subjective seen on rounds htis am; for thrombectomy later today; 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; no uncontrolled pain elsewhere; no sob, no edema; denies ongoing visual/speech/neuromuscular deficits Review of Systems Review of Systems: All systems reviewed & are unremarkable except as noted in Subjective Physical Exam Constitutional: well developed, well nourished, cooperative and + lethargic (but less than yesterday); no acute distress Eyes: + EOM not intact ENMT: Ears: no external ear abnormality Nose: no external nose abnormality Mouth: + dry oral mucous membranes Neck: no nuchal rigidity Respiratory: normal respiratory effort Auscultation: + diminished lung sounds, + crackles (bibasilar,fne) and + rhonchi (on L) Cardiovascular: Rate/Rhythm: regular rate and regular rhythm Extremities: + AV fistula (indurated proximally w/ no thrill proximally); no edema Gastrointestinal (Abdomen): Inspection/Auscultation: normal bowel sounds Percussion/Palpation: abdomen soft; abdomen nontender Skin: no rashes, warm and dry Psychiatric: Orientation: oriented to person and oriented to place Results & Data ([facility]) Vital Signs (Past 12 Hours) Vital Signs Temp Pulse Pulse Resp BP Pulse Ox O2 Del Method 12/18/21 11:36 36.4 C L 54 L 18 133/68 98 Room Air 12/18/21 08:39 Room Air 12/18/21 07:33 36.6 C 72 16 147/74 H 96 Room Air 12/18/21 02:45 36.7 C 72 18 134/60 97 Room Air Laboratory Results 12/18/21 09:26 12/18/21 09:26
--- NOTE | 2021-12-18 14:16 | History & Physical Bridge Note ---
Date of Service December 18, 2021 History & Physical Bridge Note Patient for thrombectomy of his fistula with possible intervention. I have discussed the risks options and benefits of the procedure with the patient. The patient understands the risks options and benefits and agrees to the procedure. I have examined the patient, reviewed the History & Physical and in the interval since the performance of the History & Physical I have noted the following changes of clinical significance: no changes noted
[2021-12-18] MEDS ORDERED: BUPIVACAINE 0.5 % 5 MG/1 ML MPF 30ML VIAL ONE (14:47)
[2021-12-18] MEDS ORDERED: GELATIN SPONGE 12-7MM ONE (14:47)
[2021-12-18] MEDS ORDERED: HEPARIN (PORCINE) 1000 UNIT/ML 10 ML (CATH LAB USE ONLY) ONE ×2 (14:47→17:38)
[2021-12-18] MEDS ORDERED: THROMBIN FOR SOLN 20000 UNIT KIT ONE (14:47)
[2021-12-18] MEDS ORDERED: LIDOCAINE 1% LOCAL 20 ML VIAL ONE (14:47)
[2021-12-18] MEDS ORDERED: EPINEPHrine INJ 1 MG/ML AMP ONE (14:47)
[2021-12-18] MEDS ORDERED: LIDOCAINE 2% MPF LOCAL 5 ML VIAL INFIL ONE (15:05)
[2021-12-18] MEDS ORDERED: PROPOFOL IV EMULSION 10 MG/ML 20 ML VIAL IV ONE ×5 (15:05→18:18)
[2021-12-18] MEDS ORDERED: fentaNYL citrate 100 MCG/2 ML VIAL ONE ×2 (15:06→16:27)
[2021-12-18] MEDS ORDERED: ONDANSETRON INJ 2 MG/ML 2 ML VIAL ONE (15:35)
[2021-12-18] MEDS ORDERED: HEPARIN SOD (PORCINE) 1000 UNIT/ML ONE (16:13)
[2021-12-18] MEDS ORDERED: ePHEDrine sulfate 50 MG/ML SYR ONE (16:13)
[2021-12-18] MEDS ORDERED: VISIPAQUE IV ONE ×2 (16:45→18:19)
[2021-12-18] MEDS ORDERED: SURGICEL ABSORB HEMOSTAT 2IN X 14IN TOP ONE (16:58)
--- NOTE | 2021-12-18 18:58 | Post Operative Brief Note ---
Immediate Post Op Note v1 Date of Surgery December 18, 2021 Pre & Post Diagnosis Operation Date: 12/18/21 07:00 Pre-Op Diagnosis: Malfunctioning Left Upper Extremitity Arterio-Venous Fistula Post-Op Diagnosis: Malfunctioning Left Upper Extremitity Arterio-Venous Fistula I identified the patient and participated in the time-out.: Yes Procedure Operation Date: 12/18/21 07:00 Actual Procedures p Open Thrombectomy Left upper arm fistula with venorrhaphy, Fistulagram transluminalangioplasty peripheral vein and central vein(Left) - Keagan Rea MD Surgeon Keagan Rea MD Specialty Person MD Brendan Estimated Blood Loss 200 Findings Consistent with Post-Op Diagnosis Anesthesia Type MAC Complications none Disposition Accompanied Patient To Recovery: No Disposition: Recovery Room
--- NOTE | 2021-12-18 19:17 | Procedure Note ---
Angiogram Post Procedure Fluoroscopy Time (minutes): 6.0 Conscious Sedation Time (minutes): 0 Radiation (mGy): 30 Contrast: 57 Post Operative Report Pre & Post Diagnosis Operation Date: 12/18/21 07:00 Pre-Op Diagnosis: Malfunctioning Left Upper Extremitity Arterio-Venous Fistula Post-Op Diagnosis: Malfunctioning Left Upper Extremitity Arterio-Venous Fistula I identified the patient and participated in the time-out.: Yes Procedure Operation Date: 12/18/21 07:00 Actual Procedures p Open Thrombectomy Left upper arm fistula with venovorgraphy, Fistulagram transloangioplasty peripheral vein and central vein(Left) - Keagan Rea MD Surgeon Keagan Rea MD Waste Water Worker Madeline Garcia MD Estimated Blood Loss 200 Findings See Below Specimens none Drains none Anesthesia Type MAC Complications none Disposition Accompanied Patient To Recovery: No Disposition: Recovery Room Indications Thrombosed left upper extremity fistula Description of Procedure Patient was brought to the operating room. Monitoring lines were placed on the patient and conscious sedation was utilized. A surgical timeout was performed the patient, surgical site, and allergies were noted as well as all necessary equipment was noted to be in the room. The patient's left upper extremity was prepped and draped in usual sterile fashion. Local anesthesia was injected into the left upper extremity with a mixture of half percent Marcaine and 1% lidocaine. A elliptical type incision was made around a area of ulceration on the left upper extremity. The skin was excised. The incision was then lengthened multiple centimeters above and below the elliptical area. Sharp and blunt dissection was utilized to dissect out the fistula. Control of the fistula was obtained using Vesseloops as well as angled DeBakey clamps. At this time 3000 units of heparin was given. An additional 3000 units of heparin was given roughly 30 to 40 minutes later. A venotomy was made in the fistula and a 4 and 5 [place] balloons were passed multiple times and thrombus was removed from the venous outflow of the fistula. There was backbleeding noted. The 4 Kwame was then passed towards the anastomosis however the vessel was found to be quite torturous therefore thrombus was unable to be removed and no pulsatile bleeding was noted. A 3 cm incision which was then lengthened to 5 cm was made over the proximal fistula and sharp and blunt dissection was utilized to obtain control of the fistula such that an angled DeBakey clamp could be used to clamp the fistula. An venotomy was made and a 4 [place] balloon was sent towards the venous outflow and thrombus was removed with multiple passes. Pulsatile bleeding was then noted from the anastomosis. The vein was heavily scarred with a buttonhole therefore a portion of the anterior wall of the vein was resected extending venotomy site. THe vein was of large diameter in this area. The venous outflow venotomy was repaired using a running 5-0 Prolene suture. In addition multiple 5-0 and 6-0 sutures were placed in an area just superior to the venous outflow venotomy in an area that had multiple needle holes from access sites. After multiple sutures that area was found to be hemostatic. The venotomy near the anastomosis was closed with interrupted 5-0 Prolene sutures. The vessel clamps were romved. A 18-gauge needle was used to access the fistula just above the anastomosis and a J-wire was inserted the needle was removed and exchanged for a 6 [place] sheath. A fistulogram was then performed which demonstrated stenosis of the venous outflow tract in 2 locations a stiff angled Glidewire was then utilized to traverse this stenosis and both stenoses were balloon angioplastied with a 5 x 40 [place] balloon. Repeat fistulogram noted improvement of the stenosis with less reflux into the arterial system. However there was still thrombus therefore a 5 Kwame [id number] balloon was placed distal to the thrombus and withdrawn however no thrombus was returned and the 6 [place] sheath was reinserted. A 6-0 Prolene was used in a pursestring fashion to close the access site. After the fistula had been reclamped with an angled DeBakey clamp. A third venotomy was made superior to the access site but inferior to the venotomy with venous resection and primary repair. A 5 Kwame catheter was passed towards the anastomosis and with multiple passes thrombus was removed. A vessel loop was placed around the fistula and a 6 [place] sheath was reinserted using the dilator into the open venotomy and the vessel loop was used to secure the sheath in place and obtain hemostasis. A fistulogram was repeated more centrally which demonstrated stenosis of the cephalic arch and a central venogram was performed which demonstrated no areas of stenosis. The cephalic arch was accessed using a stiff angled Glidewire and then balloon angioplastied with a 5 x 40 and 8 x 40 [place] balloons with resolution of the stenosis. The 6 [place] sheath was withdrawn and the venotomy site was closed using a running 5-0 Prolene. At this time all clamps were removed and a thrill was noted in the fistula. There was diffuse ooze from the inflamed soft tissues. 5-0 and 6-0 prolene repair sutures were placed in 2 of the venotomy sites as well as the superiormost point that had previously required sutures. At this time Surgicel as well as thrombin spray was utilized to obtain hemostasis. Bovie electrocautery was used to control skin edge bleeding. The incision near the anastomosis was closed with interrupted 3-0 Vicryl's and then 2-0 nylon sutures in a vertical mattress fashion. The upper incision required multiple rounds of Surgicel and thrombin spray however hemostasis was obtained. The more superior incision was then closed with multiple interrupted 3-0 Vicryl sutures and then 2-0 nylon sutures in a vertical mattress fashion. The arm was cleaned and sterile dressings were placed over both incisions. The patient was taken to the PACU for recovery. Dr. Rea was present and scrubbed for the entire procedure. I attest to the content of the Intraoperative Record and any orders documented therein. Any exceptions are noted below.
--- NOTE | 2021-12-18 20:35 | Anesthesiology Progress Note ---
Date of Service December 18, 2021 Anesthesia Post Procedure Vital Signs Vital Signs: Temp Pulse Pulse Pulse Resp BP Pulse Ox 12/18/21 19:15 36.2 C L 73 21 102/54 L 100 12/18/21 19:25 36.4 C L 74 22 103/55 L 100 12/18/21 19:05 74 20 117/58 L 100 12/18/21 18:54 36.6 C 76 16 106/57 L 98 12/18/21 14:16 36.7 C 61 20 155/67 H 100 12/18/21 11:36 36.4 C L 54 L 18 133/68 98 12/18/21 08:39 12/18/21 07:33 36.6 C 72 16 147/74 H 96 12/18/21 02:45 36.7 C 72 18 134/60 97 12/17/21 23:05 36.9 C 76 18 134/66 94 O2 Del Method O2 Flow Rate 12/18/21 19:15 Oxymask 2 12/18/21 19:25 Oxymask 2 12/18/21 19:05 Oxymask 4 12/18/21 18:54 Oxymask 6 12/18/21 14:16 Room Air 12/18/21 11:36 Room Air 12/18/21 08:39 Room Air 12/18/21 07:33 Room Air 12/18/21 02:45 Room Air 12/17/21 23:05 Pain Intensity Left Leg: Pain Intensity: 6 Transfer of Care Handoff Completed per policy Notes Mental Status: alert / awake / arousable Patient Amnestic to Procedure: Yes Nausea / Vomiting: adequately controlled Pain: adequately controlled Airway Patency, RR, SpO2: stable & adequate BP & HR: stable & adequate Hydration State: stable & adequate Anesthetic Complications: no major complications apparent
[2021-12-18] MEDS: METOPROLOL TARTRATE 50 MG TAB PO SCH (21:46)
[2021-12-19] MEDS: DEXTROSE 10% 1,000 ML IV SCH (00:05)
[2021-12-19] MEDS: LEVOTHYROXINE SODIUM 137 MCG TABLET PO SCH (05:18)
[2021-12-19 07:18] LABS: Albumin Level 2.7 gm/dl (3.4-5.0); BUN Creatinine Ratio 5.1 (10-20); Bilirubin,Total 0.3 mg/dl (0.2-1.0); Calcium 7.7 mg/dl (8.5-10.1); Creatinine Clr Calc Pharmacy 6.1 ml/min; Est GFR (African American) 5.5 ml/min; Est GFR (Non-African American) 4.7 ml/min; Globulin 2.6 gm/dl (2.5-4.0); Potassium 5.4 mmol/L (3.5-5.1); Total Protein 5.3 gm/dl (6.0-8.3)
[2021-12-19 07:27] LABS: Basophils # (auto) 0.05 K/uL (0-0.2); Basophils % (auto) 0.6 %; Echinocytes 1+; Eosinophils # (auto) 0.33 K/uL (0-0.50); Eosinophils % (auto) 4.3 %; Hematocrit (blood only) 22.9 % (40.1-51.0); Hemoglobin 7.5 g/dl (14.0-18.0); Immature Granulocytes # (auto) 0.06 K/uL (0.00-0.02); Immature Granulocytes % (auto) 0.8 %; Lymphocytes # (auto) 0.83 K/uL (1.2-3.4); Lymphocytes % (auto) 10.8 %; Mean Corpuscular Hemoglobin 28.3 pg (25.0-34.0); Mean Corpuscular Hgb Conc 32.8 g/dL (32.0-36.0); Mean Corpuscular Volume 86.4 fL (80.0-100.0); Mean Platelet Volume 10.2 fL (9.4-12.4); Monocytes # (auto) 1.01 K/uL (0.24-0.82); Monocytes % (auto) 13.1 %; Neutrophils # (auto) 5.42 K/uL (1.4-6.5); Neutrophils % (auto) 70.4 %; Platelet Count 333 K/uL (130-400); Polychromasia 1+; RDW Coefficient of Variation 14.9 % (11.5-14.5); Red Blood Count 2.65 M/uL (4.63-6.08)
[2021-12-19] MEDS: ATORVASTATIN 40 MG TAB PO SCH (08:34)
[2021-12-19] MEDS: SEVELAMER HCL 800 MG TABLET PO SCH ×3 (08:34→18:17)
[2021-12-19] MEDS: busPIRone 5 MG TAB PO SCH ×2 (08:34→20:16)
[2021-12-19] MEDS ORDERED: SODIUM CHLORIDE 0.9% 1000ML 1,000 ML IV PRN (09:30)
[2021-12-19] MEDS ORDERED: SODIUM CHLORIDE 0.9% 250 ML IV PRN (09:53)
--- NOTE | 2021-12-19 10:37 | XRay Report ---
XR chest 1V portable HISTORY: eval volume status; to be done on dialysis on 4thf COMPARISON: Chest 12/28/2021. FINDINGS: No pneumothorax. Small layering right pleural effusion and right basilar densities have sli ghtly improved. The heart is mildly enlarged. This is also improvement in the interval. The pulmonary vasculature congestion has improved. 3 cm right upper lobe pulmonary lesion remains unchanged. IMPRESSION: 1. Interval improvement in the cardiomegaly, pulmonary vascular congestion, and small right pleural e ffusion. 2. 3 cm right upper lobe lesion again noted. Additional small pulmonary nodules are better appreciate d on the prior studies. ACT 112: Negative or not required by law. Electronically signed by: Burke Jaimes M.D. 12/19/2021 10:36 AM
[2021-12-19] MEDS: METOPROLOL TARTRATE 100 MG TAB PO SCH ×2 (10:41→14:16)
--- NOTE | 2021-12-19 14:04 | Hospitalist Progress Note ---
Date of Service December 19, 2021 Assessment & Plan (1) Stroke: Plan: Acute CVA; likely cardioembolic Patient presented to the ED from dialysis clinic with a stroke alert. History of metastatic lung cancer Brain MRI: Innumerable foci of restricted diffusion predominantly in the bilateral posterior circulation are concerning for embolic infarcts in this patient with history of severe heart failure. Of note, no abnormal enhancing lesions are seen to suggest intracranial metastasis. Head and neck CT angiogram: Unremarkable CT angiogram of the brain noting advanced atherosclerotic plaque and irregularity. Unremarkable CT angiogram of the neck noting advanced atherosclerotic plaque and irregularity. Plan: -Patient evaluated by neurology service. Due to cardioembolic nature of the CVA and the fact that he has HFrEF with focal severe hypokinesis of the apex and septum. He was recommended to be started on Eliquis 5 mg twice daily. It was kept on hold for the procedure on 12/18. Discussed with Dr. Rea; okay to resume Eliquis. -Discussed with cardiology regarding aspirin. Recommend to continue aspirin given history of ischemic cardiomyopathy. -PT OT recommends home health (2) Metastatic adenocarcinoma: Plan: Follows up with Dr. Paredes Patient was scheduled for port placement on 12/19 with initiation of chemotherapy on 12/23. Schedule for his port placement changed to 12/24. (3) ESRD on hemodialysis: Plan: -nephrology for HD while admitted Hemodialysis site access issue status post Open Thrombectomy Left upper arm fistula with venovorgraphy, Fistulagram transloangioplasty peripheral vein and central vein on 12/18/2021 Undergoing hemodialysis without any issues post-op Discussed with Dr. Rea; will resume Eliquis. 1 unit of blood transfused today as his hemoglobin dropped from 10 to 7. (4) COPD (chronic obstructive pulmonary disease): Plan: On albuterol as needed. No wheeze on examination (5) DMII (diabetes mellitus, type 2): Plan: Not currently on any medications for this and does not follow a diabetic diet (6) Systolic CHF, chronic: Plan: Compensated (7) Essential hypertension: Plan: On amlodipine (8) Tobacco dependence syndrome: Plan Full code DVTeliquis to be resumed. Admission and Anticipated Discharge Date Admission Date: December 15, 2021 Subjective Patient seen and examined during dialysis. He is comfortable; no complaint of chest pain, fever, chills or abdominal pain Review of Systems Review of Systems: All systems reviewed & are unremarkable except as noted in Subjective Physical Exam Physical Exam: General- oriented x 3, not in distress, speaks in sentences with no effort or accessory muscle use Eyes- anicteric Neck- no JVD Lungs- clear breath sounds bilaterally, no rales/wheezes Heart- normal rate, regular rhythm; no murmurs Abdomen- normal bowel sounds, nondistended, soft, nontender Extremities-bandage over the fistula site; undergoing hemodialysis without any issues. Neuro- alert, oriented x 3; cranial nerves II through XII grossly intact, motor strength 100% all extremities, no other gross focal neurologic deficits Skin- warm & dry Results & Data Results & Data ([facility]) Vital Signs (Past 12 Hours) Vital Signs Temp Pulse Pulse Pulse Resp BP BP 12/19/21 13:15 86 138/64 12/19/21 13:00 86 127/58 L 12/19/21 12:45 86 115/57 L 12/19/21 12:30 85 126/61 12/19/21 12:30 36.6 C 85 14 126/61 12/19/21 12:00 83 126/63 12/19/21 11:30 79 130/59 L 12/19/21 11:00 77 126/60 12/19/21 10:30 74 111/53 L 12/19/21 08:00 73 12/19/21 09:03 36.6 C 70 12/19/21 09:00 12/19/21 10:00 75 91/53 L 12/19/21 09:30 66 97/53 L 12/19/21 09:12 71 109/50 L 12/19/21 08:31 36.8 C 87 18 108/77 12/19/21 03:39 36.7 C 70 17 120/68 Pulse Ox O2 Del Method 12/19/21 13:15 12/19/21 13:00 12/19/21 12:45 12/19/21 12:30 12/19/21 12:30 12/19/21 12:00 12/19/21 11:30 12/19/21 11:00 12/19/21 10:30 12/19/21 08:00 12/19/21 09:03 12/19/21 09:00 Room Air 12/19/21 10:00 12/19/21 09:30 12/19/21 09:12 12/19/21 08:31 96 12/19/21 03:39 98 Room Air Laboratory Results Laboratory Results WBC 7.70 K/ul (4.8-10.8) 12/19/21 06:40 RBC 2.65 M/uL (4.63-6.08) L 12/19/21 06:40 Hgb 7.5 g/dl (14.0-18.0) L D 12/19/21 06:40 Hct 22.9 % (40.1-51.0) L 12/19/21 06:40 MCV 86.4 fL (80.0-100.0) 12/19/21 06:40 MCH 28.3 pg (25.0-34.0) 12/19/21 06:40 MCHC 32.8 g/dL (32.0-36.0) 12/19/21 06:40 RDW Std Deviation 47.0 fL (36.4-46.3) H 12/19/21 06:40 RDW Coeff of Shaylee 14.9 % (11.5-14.5) H 12/19/21 06:40 Plt Count 333 K/uL (130-400) 12/19/21 06:40 MPV 10.2 fL (9.4-12.4) 12/19/21 06:40 Immature Gran % (Auto) 0.8 % 12/19/21 06:40 Neut % (Auto) 70.4 % 12/19/21 06:40 Lymph % (Auto) 10.8 % 12/19/21 06:40 Garrard % (Auto) 13.1 % 12/19/21 06:40 Eos % (Auto) 4.3 % 12/19/21 06:40 Baso % (Auto) 0.6 % 12/19/21 06:40 Neut # (Auto) 5.42 K/uL (1.4-6.5) 12/19/21 06:40 Lymph # (Auto) 0.83 K/uL (1.2-3.4) L 12/19/21 06:40 Garrard # (Auto) 1.01 K/uL (0.24-0.82) H 12/19/21 06:40 Eos # (Auto) 0.33 K/uL (0-0.50) 12/19/21 06:40 Baso # (Auto) 0.05 K/uL (0-0.2) 12/19/21 06:40 Immature Gran # (Auto) 0.06 K/uL (0.00-0.02) H 12/19/21 06:40 Polychromasia 1+ 12/19/21 06:40 Echinocytes 1+ 12/19/21 06:40 PT 12.3 Seconds (9.0-12.0) H 12/15/21 08:40 INR 1.2 (0.9-1.1) H 12/15/21 08:40 APTT 33.9 Seconds (21.0-31.0) H 12/15/21 08:40 PTT Ratio 1.2 12/15/21 08:40 Sodium 136 mmol/L (136-145) 12/19/21 06:40 Potassium 5.4 mmol/L (3.5-5.1) H 12/19/21 06:40 Chloride 102 mmol/L (98-107) 12/19/21 06:40 Carbon Dioxide 22 mmol/L (21-32) 12/19/21 06:40 Anion Gap 12 (3-11) H 12/19/21 06:40 BUN 50 mg/dl (6-23) H 12/19/21 06:40 Creatinine 9.81 mg/dl (0.6-1.4) H* D 12/19/21 06:40 Est Cr Clr Drug Dosing 6.1 ml/min 12/19/21 06:40 Est GFR ( Amer) 5.5 ml/min 12/19/21 06:40 Est GFR (Non-Af Amer) 4.7 ml/min 12/19/21 06:40 BUN/Creatinine Ratio 5.1 (10-20) L 12/19/21 06:40 Glucose 79 mg/dl (70-99(Fasting)) 12/19/21 06:40 POC Glucose 127 mg/dl (70-99) H 12/18/21 18:57 Estimat Average Glucose 148 mg/dl 12/16/21 06:16 Hemoglobin A1c 6.8 % (4.5-5.6) H 12/16/21 06:16 Calcium 7.7 mg/dl (8.5-10.1) L 12/19/21 06:40 Magnesium 2.1 mg/dl (1.7-2.4) 12/15/21 08:40 Total Bilirubin 0.3 mg/dl (0.2-1.0) 12/19/21 06:40 AST 15 U/L (13-39) 12/19/21 06:40 ALT 6 U/L (7-52) L 12/19/21 06:40 Alkaline Phosphatase 45 U/L (34-104) 12/19/21 06:40 Ammonia 20.0 umol/L (18-72) 12/15/21 09:05 Troponin I High Sens 25.0 pg/ml (0-20) H D 12/15/21 08:40 Total Protein 5.3 gm/dl (6.0-8.3) L 12/19/21 06:40 Albumin 2.7 gm/dl (3.4-5.0) L 12/19/21 06:40 Globulin 2.6 gm/dl (2.5-4.0) 12/19/21 06:40 Albumin/Globulin Ratio 1.0 (0.9-2) 12/19/21 06:40 Triglycerides 89 mg/dl (0-150) 12/16/21 06:16 Cholesterol 162 mg/dl (0-200) 12/16/21 06:16 LDL Cholesterol, Calc 97 mg/dl 12/16/21 06:16 VLDL Cholesterol, Calc 18 mg/dl (0-30) 12/16/21 06:16 HDL Cholesterol 47 mg/dl 12/16/21 06:16 Cholesterol/HDL Ratio 3.4 (0-5) 12/16/21 06:16 SARS-CoV-2, RNA, NAAT NEGATIVE (NEGATIVE) 12/15/21 11:36 Blood Type O Positive 12/19/21 11:12 Antibody Screen NEGATIVE 12/19/21 11:12 Crossmatch See Detail 12/19/21 11:[address] 12/15/21 08:[address] OF THE BRAIN; CT ANGIOGRAM OF THE BRAIN; CT ANGIOGRAM OF THE NECK CLINICAL HISTORY: Strokelike symptoms. Lung cancer. COMPARISON STUDY: CT of the brain dated 02/23/2021. CT angiogram of the head and neck dated 07/04/[address] dated 11/26/2021. TECHNIQUE: Unenhanced axial CT scan of the brain is performed. Subsequently, following the IV administration of 120 of Optiray 320, CT angiogram of the head and neck was performed from the aortic arch to the vertex. Images are reviewed in the axial, sagittal, and coronal planes. 3-D MIPS images are created and assessed. IV contrast was administered without complication. All measurements were calculated based on NASCET criteria. A dose lowering technique was utilized adhering to the principles of ALARA. CT DOSE: 1132.14 mGy.cm FINDINGS: Brain parenchyma: There is age-related involutional change noting mild subcortical and periventricular microangiopathic disease. Chronic lacunar infarcts are noted in both thalami and the right basal ganglia.. There is no hemorrhage, mass effect, or evidence of acute territorial ischemia by CT criteria. There is no evidence of enhancing mass lesion on the angiogram phase images. The ventricles, sulci, and cisterns are prominent secondary to involutional change. Arambula-white matter differentiation is preserved. No extra- axial fluid collection is seen. Thoracic aorta: There is atherosclerotic calcification of the thoracic aorta. Visualized portions of the thoracic aorta are normal in caliber. The aortic arch demonstrates standard 3-vessel anatomy. Right carotid arterial system: The right common carotid artery is patent. Atherosclerotic plaque and irregularity causes less than 50% luminal narrowing in the mid common carotid artery. There is advanced atherosclerotic calcification of the carotid bulb. The internal and external carotid arteries are widely patent in the neck. Left carotid arterial system: The left common carotid artery is widely patent, as with a left internal and external carotid arteries. Advanced atherosclerotic plaque is seen throughout the common carotid artery and in the carotid bulb. Vertebral arteries: The vertebral arteries are patent bilaterally noting right- sided dominance. Atherosclerotic plaque is seen throughout. This causes less than 50% narrowing of the proximal right vertebral artery seen on axial image #126. Subclavian arteries: Widely patent bilaterally. Intracranial vasculature: There is atherosclerotic calcification of the cavernous carotid and vertebral arteries The internal carotid arteries are patent at the skull base, as are the anterior and middle cerebral arteries bilaterally. The vertebrobasilar system and posterior cerebral arteries are patent noting atherosclerotic plaque and irregularity. There is a right posterior communicating artery. The right vertebral artery is dominant. There is no aneurysm, high-grade stenosis, or focal vessel cut off seen throughout the intracranial circulation. Jugular veins: Patent bilaterally. Dural sinuses: Patent. Upper chest: Emphysematous change is noted. There is an accessory azygos fissure. A right pleural effusion is partially visualized. A 6 mm right apical nodule is seen on image #88 and a 6 mm left upper lobe nodule is seen on image # 55. Mediastinal lymphadenopathy is partially imaged. Soft tissues: The visualized pharyngeal soft tissues are normal in appearance noting angiographic phase technique. The oropharyngeal airway appears widely patent. The thyroid gland is not identified and presumed surgically absent. The salivary glands are normal in appearance. There is left lower cervical chain lymphadenopathy. The largest node is seen on image #162 and measures up to 1.7 cm. Skeletal structures: The skeletal structures are osteopenic. The calvarium appears intact. The cervical spine appears maintained noting advanced multilevel spondylosis. No lytic or blastic lesion is seen. Orbits: The bony orbits are intact. Orbital contents are normal as visualized noting bilateral ocular lens implants. Sinuses and mastoids: The paranasal sinuses are clear. There is a right mastoid effusion. The left mastoid air cells are well pneumatized. IMPRESSION: 1. There is no hemorrhage, mass effect, or evidence of acute territorial ischemia by CT criteria. 2. Unremarkable CT angiogram of the brain noting advanced atherosclerotic plaque and irregularity. 3. Unremarkable CT angiogram of the neck noting advanced atherosclerotic plaque and irregularity. 4. Emphysema, mediastinal lymphadenopathy, upper lobe pulmonary nodules, right pleural effusion, and left cervical adenopathy as above. Upper lobe pulmonary nodules have increased in size as compared to 11/26/2021. ACT 112: Negative or not required by law. Electronically signed by: Dheeraj Monte M.D. 12/15/2021 8:56 AM Head CTA 12/15/21 08:[address] OF THE BRAIN; CT ANGIOGRAM OF THE BRAIN; CT ANGIOGRAM OF THE NECK CLINICAL HISTORY: Strokelike symptoms. Lung cancer. COMPARISON STUDY: CT of the brain dated 02/23/2021. CT angiogram of the head and neck dated 07/04/[address] dated 11/26/2021. TECHNIQUE: Unenhanced axial CT scan of the brain is performed. Subsequently, following the IV administration of 120 of Optiray 320, CT angiogram of the head and neck was performed from the aortic arch to the vertex. Images are reviewed in the axial, sagittal, and coronal planes. 3-D MIPS images are created and assessed. IV contrast was administered without complication. All measurements were calculated based on NASCET criteria. A dose lowering technique was utilized adhering to the principles of ALARA. CT DOSE: 1132.14 mGy.cm FINDINGS: Brain parenchyma: There is age-related involutional change noting mild subcortical and periventricular microangiopathic disease. Chronic lacunar infarcts are noted in both thalami and the right basal ganglia.. There is no hemorrhage, mass effect, or evidence of acute territorial ischemia by CT criteria. There is no evidence of enhancing mass lesion on the angiogram phase images. The ventricles, sulci, and cisterns are prominent secondary to involutional change. Arambula-white matter differentiation is preserved. No extra- axial fluid collection is seen. Thoracic aorta: There is atherosclerotic calcification of the thoracic aorta. Visualized portions of the thoracic aorta are normal in caliber. The aortic arch demonstrates standard 3-vessel anatomy. Right carotid arterial system: The right common carotid artery is patent. Atherosclerotic plaque and irregularity causes less than 50% luminal narrowing in the mid common carotid artery. There is advanced atherosclerotic calcification of the carotid bulb. The internal and external carotid arteries are widely patent in the neck. Left carotid arterial system: The left common carotid artery is widely patent, as with a left internal and external carotid arteries. Advanced atherosclerotic plaque is seen throughout the common carotid artery and in the carotid bulb. Vertebral arteries: The vertebral arteries are patent bilaterally noting right- sided dominance. Atherosclerotic plaque is seen throughout. This causes less than 50% narrowing of the proximal right vertebral artery seen on axial image #126. Subclavian arteries: Widely patent bilaterally. Intracranial vasculature: There is atherosclerotic calcification of the cavernous carotid and vertebral arteries The internal carotid arteries are patent at the skull base, as are the anterior and middle cerebral arteries bilaterally. The vertebrobasilar system and posterior cerebral arteries are patent noting atherosclerotic plaque and irregularity. There is a right posterior communicating artery. The right vertebral artery is dominant. There is no aneurysm, high-grade stenosis, or focal vessel cut off seen throughout the intracranial circulation. Jugular veins: Patent bilaterally. Dural sinuses: Patent. Upper chest: Emphysematous change is noted. There is an accessory azygos fissure. A right pleural effusion is partially visualized. A 6 mm right apical nodule is seen on image #88 and a 6 mm left upper lobe nodule is seen on image #55. Mediastinal lymphadenopathy is partially imaged. Soft tissues: The visualized pharyngeal soft tissues are normal in appearance noting angiographic phase technique. The oropharyngeal airway appears widely patent. The thyroid gland is not identified and presumed surgically absent. The salivary glands are normal in appearance. There is left lower cervical chain lymphadenopathy. The largest node is seen on image #162 and measures up to 1.7 cm. Skeletal structures: The skeletal structures are osteopenic. The calvarium appears intact. The cervical spine appears maintained noting advanced multilevel spondylosis. No lytic or blastic lesion is seen. Orbits: The bony orbits are intact. Orbital contents are normal as visualized noting bilateral ocular lens implants. Sinuses and mastoids: The paranasal sinuses are clear. There is a right mastoid effusion. The left mastoid air cells are well pneumatized. IMPRESSION: 1. There is no hemorrhage, mass effect, or evidence of acute territorial ischemia by CT criteria. 2. Unremarkable CT angiogram of the brain noting advanced atherosclerotic plaque and irregularity. 3. Unremarkable CT angiogram of the neck noting advanced atherosclerotic plaque and irregularity. 4. Emphysema, mediastinal lymphadenopathy, upper lobe pulmonary nodules, right pleural effusion, and left cervical adenopathy as above. Upper lobe pulmonary nodules have increased in size as compared to 11/26/2021. ACT 112: Negative or not required by law. Electronically signed by: Dheeraj Monte M.D. 12/15/2021 8:56 AM Neck CTA 12/15/21 08:[address] OF THE BRAIN; CT ANGIOGRAM OF THE BRAIN; CT ANGIOGRAM OF THE NECK CLINICAL HISTORY: Strokelike symptoms. Lung cancer. COMPARISON STUDY: CT of the brain dated 02/23/2021. CT angiogram of the head and neck dated 07/04/[address] dated 11/26/2021. TECHNIQUE: Unenhanced axial CT scan of the brain is performed. Subsequently, following the IV administration of 120 of Optiray 320, CT angiogram of the head and neck was performed from the aortic arch to the vertex. Images are reviewed in the axial, sagittal, and coronal planes. 3-D MIPS images are created and assessed. IV contrast was administered without complication. All measurements were calculated based on NASCET criteria. A dose lowering technique was utilized adhering to the principles of ALARA. CT DOSE: 1132.14 mGy.cm FINDINGS: Brain parenchyma: There is age-related involutional change noting mild subcortical and periventricular microangiopathic disease. Chronic lacunar infarcts are noted in both thalami and the right basal ganglia.. There is no hemorrhage, mass effect, or evidence of acute territorial ischemia by CT criteria. There is no evidence of enhancing mass lesion on the angiogram phase images. The ventricles, sulci, and cisterns are prominent secondary to invo lutional change. Arambula-white matter differentiation is preserved. No extra-axial fluid collection is seen. Thoracic aorta: There is atherosclerotic calcification of the thoracic aorta. Visualized portions of the thoracic aorta are normal in caliber. The aortic arch demonstrates standard 3-vessel anatomy. Right carotid arterial system: The right common carotid artery is patent. Atherosclerotic plaque and irregularity causes less than 50% luminal narrowing in the mid common carotid artery. There is advanced atherosclerotic calcification of the carotid bulb. The internal and external carotid arteries are widely patent in the neck. Left carotid arterial system: The left common carotid artery is widely patent, as with a left internal and external carotid arteries. Advanced atherosclerotic plaque is seen throughout the common carotid artery and in the carotid bulb. Vertebral arteries: The vertebral arteries are patent bilaterally noting right- sided dominance. Atherosclerotic plaque is seen throughout. This causes less than 50% narrowing of the proximal right vertebral artery seen on axial image #126. Subclavian arteries: Widely patent bilaterally. Intracranial vasculature: There is atherosclerotic calcification of the cavernous carotid and vertebral arteries The internal carotid arteries are patent at the skull base, as are the anterior and middle cerebral arteries bilaterally. The vertebrobasilar system and posterior cerebral arteries are patent noting atherosclerotic plaque and irregularity. There is a right posterior communicating artery. The right vertebral artery is dominant. There is no aneurysm, high-grade stenosis, or focal vessel cut off seen throughout the intracranial circulation. Jugular veins: Patent bilaterally. Dural sinuses: Patent. Upper chest: Emphysematous change is noted. There is an accessory azygos fissure. A right pleural effusion is partially visualized. A 6 mm right apical nodule is seen on image #88 and a 6 mm left upper lobe nodule is seen on image #55. Mediastinal lymphadenopathy is partially imaged. Soft tissues: The visualized pharyngeal soft tissues are normal in appearance noting angiographic phase technique. The oropharyngeal airway appears widely patent. The thyroid gland is not identified and presumed surgically absent. The salivary glands are normal in appearance. There is left lower cervical chain lymphadenopathy. The largest node is seen on image #162 and measures up to 1.7 cm. Skeletal structures: The skeletal structures are osteopenic. The calvarium appears intact. The cervical spine appears maintained noting advanced multilevel spondylosis. No lytic or blastic lesion is seen. Orbits: The bony orbits are intact. Orbital contents are normal as visualized noting bilateral ocular lens implants. Sinuses and mastoids: The paranasal sinuses are clear. There is a right mastoid effusion. The left mastoid air cells are well pneumatized. IMPRESSION: 1. There is no hemorrhage, mass effect, or evidence of acute territorial ischemia by CT criteria. 2. Unremarkable CT angiogram of the brain noting advanced atherosclerotic plaque and irregularity. 3. Unremarkable CT angiogram of the neck noting advanced atherosclerotic plaque and irregularity. 4. Emphysema, mediastinal lymphadenopathy, upper lobe pulmonary nodules, right pleural effusion, and left cervical adenopathy as above. Upper lobe pulmonary nodules have increased in size as compared to 11/26/2021. ACT 112: Negative or not required by law. Electronically signed by: Dheeraj Monte M.D. 12/15/2021 8:56 AM Brain MRI 12/16/21 08:00 MR brain wo/w con CLINICAL HISTORY: CVA, brain mets TECHNIQUE: Multiplanar and multisequence MR images of the brain were obtained prior to and following administration of gadolinium contrast. Comparison: Comparison is made to CTA head and neck 12/15/2021 FINDINGS: No abnormal restricted diffusion is identified. There are extensive foci of restricted diffusion predominantly in the bilateral posterior cerebral artery distribution, with some foci noted in the middle cerebral artery distribution as well. There are redemonstrated findings of old right lacunar infarct. There is associated edema at the region of infarct without significant mass effect or midline shift. Ex vacuo ventriculomegaly and sulcal enlargement is noted compatible with diffuse encephalomalacia. No mass or abnormal enhancement is seen. There is no mass effect or midline shift. There is no evidence of acute intraparenchymal hemorrhage. No extra axial fluid collections are seen. The corpus callosum, pituitary gland, and cerebellar tonsils appear grossly unremarkable. Flow voids of the major intracranial arterial vessels are identified. The imaged portions of the paranasal sinuses, mastoid air cells, and orbits are unremarkable. Incidental note is made of bilateral intraocular lens replacements. IMPRESSION: Innumerable foci of restricted diffusion predominantly in the bilateral posterior circulation are concerning for embolic infarcts in this patient with history of severe heart failure. Of note, no abnormal enhancing lesions are seen to suggest intracranial metastasis. ACT 112: Negative or not required by law. Electronically signed by: Baudilio Aly M.D. 12/16/2021 11:36 AM Chest X-Ray 12/19/21 09:36 XR chest 1V portable HISTORY: eval volume status; to be done on dialysis on 4thf COMPARISON: Chest 12/28/2021. FINDINGS: No pneumothorax. Small layering right pleural effusion and right basilar densities have slightly improved. The heart is mildly enlarged. This is also improvement in the interval. The pulmonary vasculature congestion has improved. 3 cm right upper lobe pulmonary lesion remains unchanged. IMPRESSION: 1. Interval improvement in the cardiomegaly, pulmonary vascular congestion, and small right pleural effusion. 2. 3 cm right upper lobe lesion again noted. Additional small pulmonary nodules are better appreciated on the prior studies. ACT 112: Negative or not required by law. Electronically signed by: Burke Jaimes M.D. 12/19/2021 10:36 AM (1) Stroke CVA mechanism: other Qualified Code(s): I63.89 - Other cerebral infarction
[2021-12-19] MEDS: ASPIRIN 81 MG ECTAB PO SCH (15:38)
--- NOTE | 2021-12-19 19:11 | Dialysis Progress Note ---
Date of Service December 19, 2021 Assessment & Plan (1) ESRD on hemodialysis: Plan: ESRD pt admitted with presumed brainstem stroke, MRI w/ embolic infarcts in post circulation; found on 12/17 to have AVF malfunction/suspected thrombus chemistries/volume status acceptable for now >>>defer to neurology and primary service for most appropriate blood pressure targets - in general will aim w/ HD to keep sbp >120 and more in 130-150s range -had MRI w/ con then HD on 10/16 >>this was his most recent HD -s/p thrombectomy 12/18 -bllld cxs ngt >>had 4 hr tx today w/ pRBC < next hd on 12/22 or as needs dictate -for 1 unit pRBC today -given R pleural effusion > continue 1.5L fluid limit -ordered dialysis diet -daily bmp, cbc Admission and Anticipated Discharge Date Admission Date: December 15, 2021 Subjective seen on HD today at about 1030. pt feeling relatively well - no further episodes of focal numbness/weakness of speech or vision deficits; no edema or sob Review of Systems Review of Systems: All systems reviewed & are unremarkable except as noted in Subjective Physical Exam Constitutional: well developed, well nourished and cooperative; no acute distress Eyes: + EOM not intact ENMT: Ears: no external ear abnormality Nose: no external nose abnormality Mouth: + dry oral mucous membranes Neck: no nuchal rigidity Respiratory: normal respiratory effort Auscultation: + diminished lung sounds Cardiovascular: Rate/Rhythm: regular rate and regular rhythm Extremities: + AV fistula (sill tender but +t/b); no edema Gastrointestinal (Abdomen): Inspection/Auscultation: normal bowel sounds Percussion/Palpation: abdomen soft; abdomen nontender Skin: no rashes, warm and dry Psychiatric: Orientation: oriented to person and oriented to place Results & Data ([facility]) Vital Signs (Past 12 Hours) Vital Signs Temp Pulse Pulse Pulse Resp BP BP 12/19/21 17:30 36.4 C L 89 18 134/67 12/19/21 15:00 94 H 12/19/21 13:50 36.9 C 87 140/60 12/19/21 13:30 86 130/60 12/19/21 13:34 36.9 C 87 14 140/60 12/19/21 14:14 92 H 18 147/66 H 12/19/21 13:15 86 138/64 12/19/21 13:00 86 127/58 L 12/19/21 12:45 86 115/57 L 12/19/21 12:30 85 126/61 12/19/21 12:30 36.6 C 85 14 126/61 12/19/21 12:00 83 126/63 12/19/21 11:30 79 130/59 L 12/19/21 11:00 77 126/60 12/19/21 10:30 74 111/53 L 12/19/21 08:00 73 12/19/21 09:03 36.6 C 70 12/19/21 09:00 12/19/21 10:00 75 91/53 L 12/19/21 09:30 66 97/53 L 12/19/21 09:12 71 109/50 L 12/19/21 08:31 36.8 C 87 18 108/77 Pulse Ox O2 Del Method 12/19/21 17:30 91 12/19/21 15:00 12/19/21 13:50 12/19/21 13:30 12/19/21 13:34 12/19/21 14:14 93 Room Air 12/19/21 13:15 12/19/21 13:00 12/19/21 12:45 12/19/21 12:30 12/19/21 12:30 12/19/21 12:00 12/19/21 11:30 12/19/21 11:00 12/19/21 10:30 12/19/21 08:00 12/19/21 09:03 12/19/21 09:00 Room Air 12/19/21 10:00 12/19/21 09:30 12/19/21 09:12 12/19/21 08:31 96 Laboratory Results 12/19/21 06:40 12/19/21 06:40
[2021-12-19] MEDS: METOPROLOL TARTRATE 50 MG TAB PO SCH (20:16)
[2021-12-20] MEDS: LEVOTHYROXINE SODIUM 137 MCG TABLET PO SCH (05:31)
[2021-12-20] MEDS: busPIRone 5 MG TAB PO SCH ×2 (08:26→20:19)
[2021-12-20] MEDS: ASPIRIN 81 MG ECTAB PO SCH (08:26)
[2021-12-20] MEDS: ATORVASTATIN 40 MG TAB PO SCH (08:27)
[2021-12-20] MEDS: SEVELAMER HCL 800 MG TABLET PO SCH ×3 (08:27→17:47)
[2021-12-20] MEDS: METOPROLOL TARTRATE 100 MG TAB PO SCH (08:27)
[2021-12-20] MEDS: APIXABAN 5 MG TABLET PO SCH ×2 (08:28→20:19)
--- NOTE | 2021-12-20 12:45 | Hospitalist Progress Note ---
Date of Service December 20, 2021 Assessment & Plan (1) Stroke: Plan: Acute CVA; likely cardioembolic Patient presented to the ED from dialysis clinic with a stroke alert. History of metastatic lung cancer Brain MRI: Innumerable foci of restricted diffusion predominantly in the bilateral posterior circulation are concerning for embolic infarcts in this patient with history of severe heart failure. Of note, no abnormal enhancing lesions are seen to suggest intracranial metastasis. Head and neck CT angiogram: Unremarkable CT angiogram of the brain noting advanced atherosclerotic plaque and irregularity. Unremarkable CT angiogram of the neck noting advanced atherosclerotic plaque and irregularity. Plan: -Patient evaluated by neurology service. Due to cardioembolic nature of the CVA and the fact that he has HFrEF with focal severe hypokinesis of the apex and septum. He was recommended to be started on Eliquis 5 mg twice daily. It was kept on hold for the procedure on 12/18. Discussed with Dr. Rea; okay to resume Eliquis. -Discussed with cardiology regarding aspirin. Recommend to continue aspirin given history of ischemic cardiomyopathy. -PT OT recommends home health (2) Metastatic adenocarcinoma: Plan: Follows up with Dr. aPredes Patient was scheduled for port placement on 12/19 with initiation of chemotherapy on 12/23. Schedule for his port placement changed to 12/24. (3) ESRD on hemodialysis: Plan: -nephrology for HD while admitted Hemodialysis site access issue status post Open Thrombectomy Left upper arm fistula with venovorgraphy, Fistulagram transloangioplasty peripheral vein and central vein on 12/18/2021 Undergoing hemodialysis without any issues post-op Discussed with Dr. eRa; will resume Eliquis. 1 unit of blood transfused today as his hemoglobin dropped from 10 to 7. (4) COPD (chronic obstructive pulmonary disease): Plan: On albuterol as needed. No wheeze on examination (5) DMII (diabetes mellitus, type 2): Plan: Not currently on any medications for this and does not follow a diabetic diet (6) Systolic CHF, chronic: Plan: Compensated (7) Essential hypertension: Plan: On amlodipine (8) Tobacco dependence syndrome: Plan Full code DVTeliquis to be resumed. Admission and Anticipated Discharge Date Admission Date: December 15, 2021 Subjective Patient seen and examined at bedside. Is comfortably sitting on the bed; not in any distress. Review of Systems Review of Systems: All systems reviewed & are unremarkable except as noted in Subjective Physical Exam Physical Exam: General- oriented x 3, not in distress, speaks in sentences w ith no effort or accessory muscle use Eyes- anicteric Neck- no JVD Lungs- clear breath sounds bilaterally, no rales/wheezes Heart- normal rate, regular rhythm; no murmurs Abdomen- normal bowel sounds, nondistended, soft, nontender Extremities-bandage over the fistula site; undergoing hemodialysis without any issues. Neuro- alert, oriented x 3; cranial nerves II through XII grossly intact, motor strength 100% all extremities, no other gross focal neurologic deficits Skin- warm & dry Results & Data Results & Data ([facility]) Vital Signs (Past 12 Hours) Vital Signs Temp Pulse Pulse Resp BP Pulse Ox O2 Del Method 12/20/21 12:02 36.6 C 72 18 125/63 91 Room Air 12/20/21 07:37 36.7 C 81 18 148/65 H 95 Room Air 12/20/21 07:00 77 12/20/21 02:53 36.5 C 75 18 144/62 H 91 Room Air (1) Stroke CVA mechanism: other Qualified Code(s): I63.89 - Other cerebral infarction
[2021-12-20 15:25] LABS: Basophils # (auto) 0.05 K/uL (0-0.2); Basophils % (auto) 0.7 %; Eosinophils # (auto) 0.28 K/uL (0-0.50); Eosinophils % (auto) 3.7 %; Hematocrit (blood only) 26.8 % (40.1-51.0); Hemoglobin 8.8 g/dl (14.0-18.0); Immature Granulocytes # (auto) 0.05 K/uL (0.00-0.02); Immature Granulocytes % (auto) 0.7 %; Lymphocytes # (auto) 0.69 K/uL (1.2-3.4); Lymphocytes % (auto) 9.1 %; Mean Corpuscular Hgb Conc 32.8 g/dL (32.0-36.0); Mean Corpuscular Volume 85.4 fL (80.0-100.0); Mean Platelet Volume 10.5 fL (9.4-12.4); Monocytes # (auto) 1.35 K/uL (0.24-0.82); Monocytes % (auto) 17.7 %; Neutrophils # (auto) 5.19 K/uL (1.4-6.5); Neutrophils % (auto) 68.1 %; Platelet Count 355 K/uL (130-400); RDW Coefficient of Variation 14.8 % (11.5-14.5); Red Blood Count 3.14 M/uL (4.63-6.08); White Blood Count 7.61 K/ul (4.8-10.8)
[2021-12-20 15:54] LABS: Albumin Level 2.8 gm/dl (3.4-5.0); BUN Creatinine Ratio 3.7 (10-20); Bilirubin,Total 0.4 mg/dl (0.2-1.0); Calcium 7.9 mg/dl (8.5-10.1); Creatinine Clr Calc Pharmacy 11.3 ml/min; Est GFR (African American) 11.4 ml/min; Est GFR (Non-African American) 9.9 ml/min; Globulin 2.7 gm/dl (2.5-4.0); Potassium 4.2 mmol/L (3.5-5.1); Total Protein 5.5 gm/dl (6.0-8.3)
[2021-12-20] MEDS: METOPROLOL TARTRATE 50 MG TAB PO SCH (20:19)
[2021-12-21 01:18] LABS: Magnesium 2.3 mg/dl (1.7-2.4); Potassium 4.2 mmol/L (3.5-5.1)
[2021-12-21] MEDS: LEVOTHYROXINE SODIUM 137 MCG TABLET PO SCH (05:36)
[2021-12-21 07:34] VITALS: O2SAT 97
[2021-12-21] MEDS: busPIRone 5 MG TAB PO SCH (08:22)
[2021-12-21] MEDS: ATORVASTATIN 40 MG TAB PO SCH (08:22)
[2021-12-21] MEDS: SEVELAMER HCL 800 MG TABLET PO SCH ×2 (08:22→13:06)
[2021-12-21] MEDS: APIXABAN 5 MG TABLET PO SCH (08:22)
[2021-12-21] MEDS: ASPIRIN 81 MG ECTAB PO SCH (08:22)
[2021-12-21] MEDS: METOPROLOL TARTRATE 100 MG TAB PO SCH (08:22)
--- NOTE | 2021-12-21 11:22 | Electrocardiogram Report ---
Test Reason : Blood Pressure : / mmHG Vent. Rate : 081 BPM Atrial Rate : 081 BPM P-R Int : 206 ms QRS Dur : 086 ms QT Int : 398 ms P-R-T Axes : 073 032 064 degrees QTc Int : 462 ms Poor data quality, interpretation may be adversely affected Sinus rhythm with occasional Premature ventricular complexes Otherwise normal ECG When compared with ECG of 15-DEC-2021 08:43, Premature ventricular complexes are now Present Premature atrial complexes are no longer Present Confirmed by Fred Martínez ([id number]) on 12/21/2021 11:21:59 AM Referred By: REFERRED SELF Confirmed By:Fred Martínez
[2021-12-21 11:35] VITALS: TEMP 97.9
--- NOTE | 2021-12-21 12:42 | Discharge Summary ---
Date of Service December 21, 2021 Admission HPI Per Admitting Provider This is a 71-year-old male with PMHx of metastatic lung cancer (bone, LN, brain), COPD, chronic diastolic CHF, PAF not on AC due to prior GIB, ESRD on HD, DM2 not on meds, hyperthyroidism with goiter s/p thyroidectomy with post- operative hypothyroidism, gout, and chronic tobacco use who presented to the ED today from dialysis as a stroke alert. Limited history from patient so majority of history obtained from pt's at the bedside and his prior medical records. Pt was recently admitted to this facility 11/26/21-11/28/21 with LEONE found secondary to bilateral pleural effusion and volume overload thought to be multifactorial. Family reports that pt was doing well at home. Yesterday, he went to synagogue and seemed to be at his baseline functional status. He had an outpatient MRI on 12/02 with concern for two tiny brain mets. He has seen his usual oncologist and gotten a second oncology opinion and has decided to pursue immunotherapy for treatment of metastatic lung cancer. He was to have a port placed on 12/19 and start immunotherapy on 12/23. This morning, when he woke up, he seemed fine and went to HD. About three hours into HD session, he became unresponsive then developed left sided weakness and AMS so sent to the ED via EMS as a stroke alert. In the ED, initial imaging was negative. Evaluated by telestroke neurologist - based on clinical exam, diagnosed with probable brain stem CVA. Family declined thrombolytics due to concern for pt's prior GI bleeds and concern that risks outweigh potential benefits. Per family, pt does seem to be improving since he arrived in the ED. Initially unable to answer questions or follow commands but now able to answer simple questions and follow basic demands. Pt initially had complete vision ("like someone turned out the lights") when he presented but now able to see bright light. Admission Exam Per Admitting Provider Constitutional: well developed and well nourished; no acute distress Eyes: + anicteric sclerae and PERRL bilateral esotropia but able to track light although difficulty with lateral movements +vision loss bilaterally - able to see l ight but not able to see people in the room, fingers in front of vision Neck: trachea midline Respiratory: no respiratory distress and no labored breathing Auscultation: lungs clear to auscultation bilaterally; no rales, no rhonchi and no wheezes Cardiovascular: Rate/Rhythm: regular rate and regular rhythm Vessels: radial pulses present Extremities: no pedal edema Gastrointestinal (Abdomen): Inspection/Auscultation: normal bowel sounds; abdomen not distended Percussion/Palpation: abdomen soft; abdomen nontender Musculoskeletal: Head/Neck/Chest: normocephalic, head atraumatic and neck supple LUE and LLE strength 3/5, RUE and RLE strength 4/5 Skin: no jaundice Neurologic: moves all extremities Speech / Cognition: + expressive aphasia (trouble finding some words but seems able to comprehend/answ questions) Motor/Sensory: no pronator drift Cranial Nerves: PERRL and tongue midline Psychiatric: Orientation: oriented to person and oriented to place; + not oriented to time Principal Diagnosis Acute CVA; likely cardioembolic Hemodialysis site access issue status postOpen Thrombectomy Left upper arm fistula with venovorgraphy, Fistulagram transloangioplasty peripheral vein and central vein on 12/18/2021 Discharge Exam General- oriented x 3, not in distress, speaks in sentences with no effort or accessory muscle use Eyes- anicteric Neck- no JVD Lungs- clear breath sounds bilaterally, no rales/wheezes Heart- normal rate, regular rhythm; no murmurs Abdomen- normal bowel sounds, nondistended, soft, nontender Extremities-bandage over the fistula site; pulsation present Neuro- alert, oriented x 3; cranial nerves II through XII grossly intact, motor strength 100% all extremities, no other gross focal neurologic deficits Skin- warm & dry Discharge Data Allergies Allergy/AdvReac Type Severity Reaction Status Date / Time No Known Allergies Allergy NONE Verified 12/18/21 14:48 Consultations 12/15/21 10:20 ED Decision to Admit Stat 12/15/21 13:14 Consult Nephrology Routine Consult Neurology Routine 12/16/21 11:12 Consult Cardiology Routine 12/17/21 11:16 Consult Vascular Surgery Routine Procedures Performed Operation Date: 12/18/21 07:00 Actual Procedures p Open Thrombectomy Left upper arm fistula with venovorgraphy, Fistulagram transloangioplasty peripheral vein and central vein(Left) - Keagan Rea MD Ordered Studies 12/15/21 08:26 CT angio head w con Stat CT angio neck with con Stat CT head/brain wo con Stat 12/16/21 08:00 MRI Brain [MR brain wo/w con] Routine 12/18/21 12:40 EV angio arteriovenous shunt Routine Hospital Course (1) Stroke: (2) Metastatic adenocarcinoma: (3) ESRD on hemodialysis: (4) COPD (chronic obstructive pulmonary disease): (5) DMII (diabetes mellitus, type 2): (6) Systolic CHF, chronic: (7) Essential hypertension: (8) Tobacco dependence syndrome: Plan This is a 71-year-old male with PMHx of metastatic lung cancer (bone, LN, brain), COPD, chronic diastolic CHF, PAF not on AC due to prior GIB, ESRD on HD, DM2 not on meds, hyperthyroidism with goiter s/p thyroidectomy with post- operative hypothyroidism, gout, and chronic tobacco use who presented to the ED today from dialysis as a stroke alert. Stroke work-up was done; MRI brain showed innumerable foci of embolic infarct. Neurology was consulted; due to the cardioembolic nature of the CVA and his severe HFrEF; decision was made to start him on Eliquis 5 mg twice daily. Cardiology was also consulted for comanagement. They recommend continuation of aspirin as well as Eliquis. During the hospitalization, patient was found to have reduced pulses in his proximal limb of AV fistula. Patient underwent thrombectomy by Dr. Keagan Rea on 12/18/2021. He was able to tolerate hemodialysis well after the procedure without any issues. Patient was continued on hemodialysis during his hospitalization. Nephrology was on board. PT OT evaluation was done; patient continued to show signs of improvement throughout the hospitalization with his ambulation. He was discharged home with instruction to follow-up with primary care. Patient is scheduled for port placement on 12/24. No other medication changes were done. Total Time Total Time Spent Total Time Spent (In Minutes): 35 Total Time Includes: Examination of the Patient, Discharge Planning, Medication Reconciliation, Communication With Other Providers and Other Discharge Plan Discharge Items Patient Disposition: Home - Self-Care Reason For Visit: CVA Discharge Diagnosis: Acute CVA; likely cardioembolic Hemodialysis site access issue status postOpen Thrombectomy Left upper arm fistula with venovorgraphy, Fistulagram transloangioplasty peripheral vein and central vein on 12/18/2021 Activity: Resume your previous activity Non-emergency contact: Primary Care Provider Call non-emergency contact if: you have any medication questions and your symptoms worsen Follow-up/Referrals: Sabino Murphy MD [Primary Care Provider] - (Date & Time 12/25/2021 11:20 AM Provider Sabino Murphy MD Department [facility] ) Diet: Dialysis Renal Addtl Attending Provider Instructions: You were admitted to the hospital and were found to have stroke. You were started on a blood thinner called Joe. Please take it twice a day. You underwent surgery for access issue with the hemodialysis site. Your surgeon was Dr. Keagan Rea. If you have any questions regarding the procedure; please call his office at [phone]. Please continue with HD as scheduled. Please follow up with your PCP sometime next week. Continue your medications as before. Pending Studies at Discharge: No Stand-Alone Forms: [employer], Work/School Release, Smoking Cessation, Medications to Prevent Stroke Medications and DC Order Prescriptions: New Eliquis 5 mg Tablet 5 mg PO BID Qty: 60 0RF Continued multivitamin [Multiple Vitamins] Tablet 1 tab PO DAILY atorvastatin 40 mg tablet 40 mg PO QAM levothyroxine [Euthyrox] 137 mcg tablet 137 mcg PO DAILYBB cyclobenzaprine 10 mg tablet 5 mg PO HS PRN (Reason: Pain) acetaminophen 325 mg Tablet 650 mg PO Q4H PRN (Reason: pain) Qty: 30 0RF amlodipine [Norvasc] 5 mg Tablet 5 mg PO QAM Qty: 30 0RF buspirone 5 mg tablet 2.5 mg PO BID metoprolol tartrate 100 mg tablet See Rx Instructions .ROUTE .COMPLEX Rx Instructions: TAKES 100 MG QAM, THEN 50 MG QPM. varenicline 0.5 mg tablet 0.5 mg PO DAILY aspirin 81 mg Tablet,Delayed Release (Dr/Ec) 81 mg PO QAM Qty: 30 1RF albuterol sulfate 90 mcg/actuation HFA aerosol inhaler 2 puff INHALATION Q6H PRN (Reason: Cough) sevelamer carbonate 800 mg tablet 2,400 mg PO TIDM Discharge Orders: Discharge Order (Routine); Ordered 12/21/21 Ordered By: Blas Jacques/Other Patient Handouts: Type 2 Diabetes Admission Data Admit Date/Time: 12/15/21 11:18 Attending Provider: Blas Michelle Admit Provider: Emily Rodriguez Primary Care Provider: Sabino Murphy Other Providers: Emily Rodriguez ; Grecia Patel ; Raj Magaña ; Momo Richter ; Keagan Rea ; [facility] ; [facility] ; [place] Other Interventions: Discharge Summary Assessment (RN) Last Done: 12/21/21 14:18
[2021-12-21 14:20] VITALS: BP 142/82; PULSE 80
== END 2021-12-21 14:57 | disposition home or self-care (01) | DRG 981 ==
LOC: ED 08:26 → 2S 11:18 → SUATTDRO 11:18 → 2S 12:28